=== PATIENT | male | born 1950 | race Caucasian/White ===

== ENCOUNTER 2021-10-01 12:59 | Inpatient (IN) | payer OTHER ==
--- OUTSIDE RECORDS SUMMARY | 2021-10-01 13:22 | XMS REPORT | Continuity of Care Document ---
:1950 Author Organization [facility] t Address [address] [place] [address] Care Team Providers Name Role Phone Asked, Pcp Primary Care Physician Unavailable [id number] Attending Clinician Unavailable RADHA MAYA Attending Clinician Unavailable CHA HARP Attending Clinician Unavailable MELINA Attending Clinician Unavailable [email or web address] Attending Clinician Unavailable SANDHYA Attending Clinician Unavailable Attending Clinician Unavailable Singer CHRISTIANSON Attending Clinician Freddy SERVIN, B Attending Clinician Unavailable MADDI Attending Clinician Unavailable Adilson David DO Attending Clinician Maddi FAY Attending Clinician CARSON Attending Clinician Unavailable Michelle HALLMAN Attending Clinician Unavailable Anival FAY Attending Clinician Michelle Hallman MD Attending Clinician Rin Vee MD Attending Clinician Alcon Pimentel MD Attending Clinician Doctor Unassigned, Name Attending Clinician Unavailable KNOW Attending Clinician Unavailable Radha FAY, Luciano Attending Clinician Jd Kelly MD Attending Clinician Shaikh SUMEET Attending Clinician Giovani Barbour Attending Clinician Jian Claudio MD Attending Clinician Florina Mills MD Attending Clinician Fredrick FAY Attending Clinician DR CHICO Attending Clinician Unavailable Geetha FAY Attending Clinician Chay Garcia Attending Clinician Janet SERVIN Attending Clinician CHERYL Attending Clinician Unavailable [place] Attending Clinician Nicolas Medrano MD Attending Clinician Linda FAY Attending Clinician Cheryl FAY Attending Clinician Elijah Dee MD Attending Clinician Vania Castorena MD Attending Clinician Brendon FAY Attending Clinician Vania CASTORENA Attending Clinician Unavailable Malissa David Attending Clinician Unavailable [id number] Admitting Clinician Unavailable RADHA MAYA Admitting Clinician Unavailable CHA HARP Admitting Clinician Unavailable SANDHYA Admitting Clinician Unavailable [email or web address] Admitting Clinician Unavailable VANDONGEN Admitting Clinician Unavailable MADDI Admitting Clinician Unavailable Maddi FAY Admitting Clinician JULIETTE Admitting Clinician Unavailable Michelle HALLMAN Admitting Clinician Unavailable Michelle Hallman MD Admitting Clinician KNOW Admitting Clinician Unavailable BUBBA Admitting Clinician Unavailable DR CHICO Admitting Clinician Unavailable ELIJAH DEE Admitting Clinician Unavailable Elijah Dee MD Admitting Clinician Brendon FAY Admitting Clinician Malissa David Admitting Clinician Unavailable Payers Payer Name Policy Type Policy Number Effective Date Expiration Date [id number] *SELF PAY* NEED CORRECT MEDICARE ID MEDICARE B-[place]: [id number] [employer] [facility] [id number] (MEDICARE REPLACEMENT HMO) MEDICARE PART A [id number] 2014 \\T\\ B 00:00:00 Problems Condition Condition Condition Status Onset Resolution Last Treating Co mments Source Name Details Category Date Date Treatment Clinician Date UTI UTI Disease Active 2020-06 Univers (urinary (urinary 1-27 ity of tract tract 00:00: [place] infection) infection) 00 Me dical Branch Paroxysmal Paroxysmal Disease Active U nivers atrial atrial 8-04 ity of fibrillati fibrillati [place] with on with 00 Medical RVR RVR Branch Septic Septic Disease Active Univers shock shock 8-04 ity of 00:00: 00 Medical Branch Paroxysmal Paroxysmal Disease Active U nivers atrial atrial 8-04 ity of fibrillati fibrillati [place] with on with Medical RVR RVR Branch ANGIE (acute ANGIE (acute Disease Active U nivers kidney kidney 8-04 ity of injury) injury) 00:00: [place] 00 Medical Branch Hypotensio Hypotensio Disease Active Overview : Univers n, n, 8 Formattin ity of unspecifie unspecifie 00:00: g of this [place] d d 00 note Medical hypotensio hypotensio might be Branch n type n type different from the original. Added automatic ally from request for surgery [id number] Sacral Sacral Disease Active Methodi decubitus decubitus 2-10 st ulcer, ulcer, 00:00: Hospita stage III stage III 00 l COVID-19 COVID-19 Disease Active [facility] virus virus 1-30 st detected detected 00:00: Hospit a 00 l Atypical Atypical Disease Active [facility] di pneumonia pneumonia 1-29 st 00:00: Hospita 00 l group home intermediate frame tender Disease Active Uni vers (current) (current) 1-24 ity of use of use of 00:00: [place] anticoagul anticoagul 00 Me dical ants ants Branch Bacteremia Bacteremia Disease Active U nivers due to due to 1-23 ity of Gram-negat Gram-negat 00:00: [place] tressa tressa 00 Medical bacteria bacteria Branch Diarrhea Diarrhea Disease Active Unive rs of of 1-23 ity of presumed presumed 00:00: [place] infectious infectious 00 Me dical origin origin Branch Respirator Respirator Disease Active U nivers y failure, y failure, 1-21 it y of acute acute 00:00: [place] [facility] PAF PAF Disease Active Univers (paroxysma (paroxysma 1-03 it y of l atrial l atrial 00:00: [place] fibrillati fibrillati 00 Me dical on) on) Branch Morbid Morbid Disease Active Univers obesity obesity 1-03 ity of 00:00: [place] [facility] Essential Essential Disease Active Uni vers hypertensi hypertensi 1-03 it y of on on 00:: Medical Branch COVID-19 COVID-19 Disease Active Overview: Un caesar virus virus 1-03 Formattin ity of infection infection 00:00: g of this [place] 00 note is Medical different Branch from the original. SARS-CoV- 2 Rapid ID NOW (no units) Date Value 1 Positive (A) 0 Positive (A) Anemia Anemia Disease Active Univers 1-03 ity of 00:00: [place] [facility] Sinus Sinus Disease Active Univers bradycardi bradycardi 1-03 it y of a a 00:00: [place] [facility] Cellulitis Cellulitis Disease Active 2019-06 U nivers 2-30 ity of 00:00: [place] [facility] Chronic Chronic Diagnosis Active [facility] obstructiv [facility] pulmonary pulmonary l disease disease Outpati (COPD) (COPD) ent Clinics Lymphedema Lymphedema Diagnosis Active [facility] not [facility] elsewhere Buzz yosef classified classified l Outpati ent Clinics Hypothyroi Hypothyroi Problem Active [facility] dism [facility] Hyperglyce Hyperglyce Problem Active [facility] Hypertensi Hypertensi Diagnosis Active [facility]ics Chronic Chronic Problem Active [facility] pain pain [facility] - syndrome syndrome [facility] l Outpati ent Clinics Obstructiv Obstructiv Diagnosis Active [facility] e sleep e sleep [facility] apnea [facility] Insomnia Insomnia Problem Active [facility] Peripheral Peripheral Problem Active [facility] vascular vascular [facility] - disease disease Memoria l [facility] ent Clinics Body mass Body mass Problem Active [facility] index index [facility] - (BMI) of (BMI) of Memori a 40.0-44.9 40.0-44.9 l in adult in adult Outpat i ent Clinics 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 Me moria l [facility] ent Clinics Allergies, Adverse Reactions, Alerts Allergy Allergy Status Severity Reaction(s) Onset Inactive Treating Comm ents Source Name Type Date Date Clinician COLLAGEN Allergy Active 2020-06 ENCCLR ASE 1-14 17:52: 27 COLLAGEN Allergy Active 2020-06 ENCCLR ASE 1-14 17:52: 27 COLLAGEN Allergy Active 2020-06 ENCCLR ASE 1-14 17:52: 27 COLLAGEN Allergy Active 2020-06 ENCCLR ASE 1-14 17:52: 27 COLLAGEN Allergy Active 2020-06 ENCCLR ASE 1-14 17:52: 27 COLLAGEN Allergy Active 2020-06 ENCCLR ASE 1-14 17:52: 27 COLLAGEN Allergy Active 2020-06 ENCCLR ASE 1-14 17:52: 27 COLLAGEN Allergy Active 2020-06 ENCCLR ASE 1-14 17:52: 27 SULFA Allergy Active 2020-06 ENCCLR 07-04 10:23: 37 SULFA Allergy Active 2020-06 ENCCLR 07-04 10:23: 37 SULFA Allergy Active 2020-06 ENCCLR 07-04 10:23: 37 SULFA Allergy Active 2020-06 ENCCLR 07-04 10:23: 37 SULFA Allergy Active 2020-06 ENCCLR 07-04 10:23: 37 SULFA Allergy Active 2020-06 ENCCLR 07-04 10:23: 37 SULFA Allergy Active 2020-06 ENCCLR 07-04 10:23: 37 SULFA Allergy Active 2020-06 ENCCLR 07-04 10:23: 37 SULFA Allergy Active 2020-06 ENCCLR 07-04 10:23: 37 SULFA Allergy Active 2020-06 ENCCLR 07-04 10:23: 37 CODEINE DRUG Active Other-Cmnt Unive rs INGREDI 01-22 ity of 00:00: [place] 00 Medical Branch Codeine Propensi Active Other - See nausea Un caesar ty to comments 01-22 ity of adverse 00:00: [place] reaction 00 Medical s Branch CODEINE Allergy Active ENCCLR -18 15:11: 11 CODEINE Allergy Active ENCCLR 518 15:11: 11 CODEINE Allergy Active ENCCLR 18 15:11: 11 CODEINE Allergy Active ENCCLR 18 15:11: 11 CODEINE Allergy Active ENCCLR 18 15:11: 11 CODEINE Allergy Active ENCCLR 18 15:11: 11 Silver Propensi Active Unknown Methodi Sulfadia ty to Reaction 1-29 st zine adverse 00:00: Hospita reaction 00 l s to drug SILVER DRUG Active Other-Cmnt 2019-06 Univer s SULFADIA INGREDI 230 ity of ZINE 00:00: [place] 00 Medical Branch Silver Propensi Active Other - See 2019-06 "makes Uni vers Sulfadia ty to comments 2-30 wounds ity of zine adverse 00:00: worse" [place] reaction 00 Medical s Branch CODEINE Allergy Active 2019- ENCCLR 01-25 22:13: 58 CODEINE Allergy Active 2019- ENCCLR 01-25 22:13: 58 CODEINE Allergy Active 2019- ENCCLR 01-25 22:13: 58 CODEINE Allergy Active 2019-0 ENCCLR 01-25 22:13: 58 CODEINE Allergy Active 2019-0 ENCCLR 01-25 22:13: 58 CODEINE Allergy Active 2019-0 ENCCLR 01-25 22:13: 58 CODEINE Allergy Active 2019-0 ENCCLR 01-25 22:13: 58 CODEINE Allergy Active 2019-0 ENCCLR 01-25 22:13: 58 CODEINE Allergy Active 2019-0 ENCCLR 01-25 22:13: 58 CODEINE Allergy Active 2019-0 ENCCLR 01-25 22:13: 58 CODEINE Allergy Active 2019-0 ENCCLR 01-25 22:13: 58 CODEINE Allergy Active 2019-0 ENCCLR 01-25 22:13: 58 SULFA Allergy Active 2020-0 ENCCLR 01-25 22:13: 50 SULFA Allergy Active 2020-0 ENCCLR 01-25 22:13: 50 SULFA Allergy Active 2020-0 ENCCLR 01-25 22:13: 50 SULFA Allergy Active 2020-0 ENCCLR 01-25 22:13: 50 SULFA Allergy Active 2020-0 ENCCLR 01-25 22:13: 50 SULFA Allergy Active 2020-0 ENCCLR 01-25 22:13: 50 SULFA Allergy Active 2020-0 ENCCLR 01-25 22:13: 50 SULFA Allergy Active 2020-0 ENCCLR 01-25 22:13: 50 SULFA Allergy Active 2020-0 ENCCLR 01-25 22:13: 50 SULFA Allergy Active 2020-0 ENCCLR 01-25 22:13: 50 SULFA Allergy Active 2020-0 ENCCLR 01-25 22:13: 50 SULFA Allergy Active 2020-0 ENCCLR 01-25 22:13: 50 SULFADIA Allergy Active 2020-0 ENCCLR ZINE 01-25 22:13: 46 SULFADIA Allergy Active 2020-0 ENCCLR ZINE 01-25 22:13: 46 SULFADIA Allergy Active 2020-0 ENCCLR ZINE 01-25 22:13: 46 SULFADIA Allergy Active 2020-0 ENCCLR ZINE 01-25 22:13: 46 SULFADIA Allergy Active 2020-0 ENCCLR ZINE 01-25 22:13: 46 SULFADIA Allergy Active 2020-0 ENCCLR ZINE 01-25 22:13: 46 SULFADIA Allergy Active 2020-0 ENCCLR ZINE 01-25 22:13: 46 SULFADIA Allergy Active 2020-0 ENCCLR ZINE 01-25 22:13: 46 SULFADIA Allergy Active 2020-0 ENCCLR ZINE 01-25 22:13: 46 SULFADIA Allergy Active 2020-0 ENCCLR ZINE 01-25 22:13: 46 SULFADIA Allergy Active 2020-0 ENCCLR ZINE 01-25 22:13: 46 SULFADIA Allergy Active 2020-0 ENCCLR ZINE 01-25 22:13: 46 Codeine Adverse Active Info Not [facility] Sulfate Reaction Available [facility] Social History Social Habit Start Date Stop Date Quantity Comments Source Exposure to Not sure University of SARS-CoV-2 [place] [facility] (event) Branch Alcohol intake 2020-08-08 2020-08-08 Ex-drinker [facility]ai 00:00:00 00:00:00 (finding) Hospital Tobacco use and 2020-07-21 2020-07-21 Smokeless tobacco Me thodist exposure 00:00:00 00:00:00 non-user Hospital History SDOH 2020-07-13 2020-07-13 99 University o f Alcohol Frequency 00:00:00 00:00:00 [place] M edical Branch History SDOH 2020-07-13 2020-07-13 99 University o f Alcohol Std 00:00:00 00:00:00 [place] Medical Drinks Branch History SDOH 2020-07-13 2020-07-13 99 University o f Alcohol Binge 00:00:00 00:00:00 [place] [facility] al [facility] Education 2020-07-13 2020-07-13 13 University of 00:00:00 00:00:00 [place] [facility] History SDOH Food 2020-07-13 2020-07-13 1 Univers ity of Worry 00:00:00 00:00:00 [place] [facility] History SDOH Food 2020-07-13 2020-07-13 1 Univers ity of Scarcity 00:00:00 00:00:00 [place] [facility] History SDOH 2020-07-13 2020-07-13 2 University o f Transport Med 00:00:00 00:00:00 [place] [facility] History SDNM 2020-07-13 2020-07-13 2 University o f Transport Non-Med 00:00:00 00:00:[address] [facility] edical Branch Alcohol Comment 2020-07-13 2020-07-13 hasn't had drink Uni versity of 00:00:00 00:00:00 since 2013; use [place] [facility] ica to drink 5-6 Branch beers on some weekends Sex Ass[birth year] [place] 00:00:00 00:00:00 Hospital Smoking Status Start Date Stop Date Source Never smoker [facility] Medical Branch Medications Ordered Filled Start Stop Current Ordering Indication Dosage Frequency Signature Comments Components Source Medication Medication Date Date Medication? Clinician (SIG) Name Name HYDROcodone 2021- No 1{tbl} 1 tablet, Univers -acetaminop 06-29 Oral, ity of hen (NORCO) 01:45: 00:43 [place]CE[place] 1 [place] 10-325 mg 00 :00 dose, On Medica l tablet Fri06/28/21 Branc h tablet at 1945, Routine cefTRIAXone 2021- No 1000mg 1,000 mg, Univers (ROCEPHIN) 06-28- IV ity of 1,000 mg in 18:45: 19:07 [place], [place] NaCl 0.9% 00 :00 ONCE, 1 Medical (NS) 50 mL dose, On Branc h MINI-BAG Gaby 06/28/21 at 1245, Administer over 30 Minutes, 50 mL
R fely for Anti-Infec tive: Empiric Therapy for Suspected Infection< br>Empiric Therapy Site: Urine
D uration of therapy: 72 hours HYDROcodone 2021- No 1{tbl} 1 tablet, Univers -acetaminop 06-28 Oral, ity of hen (NORCO) 17:45: 16:48 ONCE, 1 [place] 10-325 mg 00 :00 dose, On Medica l tablet Fri06/28/21 Branc h tablet at 1145, Routine levoFLOXaci Yes [id number] 750mg Take 1 Univers n 750 mg 1-06 tablet by ity of tablet 00:00: mouth [place] 00 every 24 Medical (twenty-fo Branch ur) hours. aspirin 81 2020-06 Yes 81mg Take 81 mg U nivers mg chewable 2-02 by mouth ity of tablet 21:31: daily. [place] [address] Medical Branch gabapentin 2020-06 Yes 600mg Take 600 Un caesar 600 mg 2-02 mg by ity of tablet 21:31: mouth 4 [place] [address] (four) Medical times Branch daily. enalapril 5 2020-06 Yes 5mg Take 5 mg U nivers mg tablet 2-02 by mouth ity of 21:31: daily. [place] [address] Medical Branch rivaroxaban 2020-06 Yes 20mg Take 20 mg Univers (XARELTO) 2-02 by mouth ity of 20 mg 21:31: daily. [place] tablet 53 Medical Branch liothyronin 2020-06 Yes 25ug Take 25 Uni vers e 25 mcg 2-02 mcg by ity of tablet 21:31: mouth [place] 53 daily. Medical Branch amiodarone 2020-06 Yes 200mg Take 200 Un caesar 200 mg 2-02 mg by ity of tablet 21:31: mouth [place] 53 daily. Medical Branch HYDROcodone 2020-06 Yes 1{tbl} Take 1 Un caesar -acetaminop 2-02 tablet by ity of hen (NORCO) 21:31: mouth [place] 10-325 mg 53 every 6 Medical tablet (six) Branch hours as needed. aspirin 81 2020-06 Yes 81mg Take 81 mg U nivers mg chewable 2-02 by mouth ity of tablet 21:31: daily. [address] Branch gabapentin 2020-06 Yes 600mg Take 600 Un caesar 600 mg 2-02 mg by ity of tablet 21:31: mouth 4 [place] [address] (four) Medical times Branch daily. enalapril 5 2020-06 Yes 5mg Take 5 mg U nivers mg tablet 2-02 by mouth ity of 21:31: daily. [address] Branch rivaroxaban 2020-06 Yes 20mg Take 20 mg Univers (XARELTO) 2-02 by mouth ity of 20 mg 21:31: daily. [address] Branch liothyronin 2020-06 Yes 25ug Take 25 Uni vers e 25 mcg 2-02 mcg by ity of tablet 21:31: mouth [place] 53 daily. Medical Branch amiodarone 2020-06 Yes 200mg Take 200 Un caesar 200 mg 2-02 mg by ity of tablet 21:31: mouth [place] 53 daily. Medical Branch HYDROcodone 2020-06 Yes 1{tbl} Take 1 Un caesar -acetaminop 2-02 tablet by ity of hen (NORCO) 21:31: mouth [place] 10-325 mg 53 every 6 Medical tablet (six) Branch hours as needed. aspirin 81 2020-06 Yes 81mg Take 81 mg U nivers mg chewable 2-02 by mouth ity of tablet 21:31: daily. [address] Branch gabapentin 2020-06 Yes 600mg Take 600 Un caesar 600 mg 2-02 mg by ity of tablet 21:31: mouth 4 [place] 53 (four) Medical times Branch daily. enalapril 5 2020-06 Yes 5mg Take 5 mg U nivers mg tablet 2-02 by mouth ity of 21:31: daily. [place] 53 Medical Branch rivaroxaban 2020-06 Yes 20mg Take 20 mg Univers (XARELTO) 2-02 by mouth ity of 20 mg 21:31: daily. [place] tablet 53 Medical Branch liothyronin 2020-06 Yes 25ug Take 25 Uni vers e 25 mcg 2-02 mcg by ity of tablet 21:31: mouth [place] 53 daily. Medical Branch amiodarone 2020-06 Yes 200mg Take 200 Un caesar 200 mg 2-02 mg by ity of tablet 21:31: mouth [place] 53 daily. Medical Branch HYDROcodone 2020-06 Yes 1{tbl} Take 1 Un caesar -acetaminop 2-02 tablet by ity of hen (NORCO) 21:31: mouth [place] 10-325 mg 53 every 6 Medical tablet (six) Branch hours as needed. NaCl 0.9% 2020-06 Yes 10mL 10 mL, Univer s (NS) 2- Slow IV ity of injection 19:00: Push, PRN, [place] 10 mL 26 Starting Medical on Fri Branch 05/23/21 at 1300, Until Discontinu ed, Routine, line maintenanc e lidocaine 2020-06 Yes 5mL 5 mL, Univers 1% (PF) 2 Subcutaneo ity of (XYLOCAINE) 19:00: us, PRN, [place] injection 5 26 Starting Medi karine mL on Fri Branch 05/23/21 at 1300, Until Discontinu ed, Routine, Local anesthesia meropenem 2020-06 Yes 1g 1 g, IV Unive rs (MERREM) 1 2-01 Piggyback, ity of g in NaCl 16:00: Q8H ABX, [place] 0.9% (NS) 00 First dose Medi karine 100 mL on Fri Branch MINI-BAG 05/23/21 at 1000, Until Discontinu ed, Administer over 60 Minutes, 100 mL
Rest ricted use approved by: ADC PROVIDER<b r>Reason for Anti-Infec tive: Empiric Therapy for Suspected Infection< br>Empiric Therapy Site: Skin / Soft tissue
Duration of therapy: 7 days rivaroxaban 2020-06 Yes 20mg 20 mg, Univ ers (XARELTO) 07-22 Oral, ity of tablet 20 03:30: DAILY, [place] mg 00 First dose Medical on [facility] 05/21/21 at 2130, Until Discontinu ed, Routine meropenem 2020-06 1g 1 g, IV Univ ers (MERREM) 1 07-22 Piggyback, it y of g in NaCl 00:30: 14:47 Q8H ABX, [place] 0.9% (NS) 00 :25 21 doses, Medic al 100 mL First dose Branch MINI-BAG on Fri05/21/21 at 1830, Last dose on Fri05/28/21 at 1030, Administer over 60 Minutes, 100 mL
Rest ricted use approved by: ADC PROVIDER<b r>Reason for Anti-Infec tive: Documented Infection< br>Documen josé antonio Infection Site: Urine
D uration of Therapy: 7 days liothyronin 2020-06 Yes 25ug 25 mcg, Uni vers e (CYTOMEL) 07-20 Oral, ity of tablet 25 15:00: DAILY, [place] mcg 00 First dose Medical on [facility] 05/20/21 at 0900, Until Discontinu ed, Routine enalapril 2020-06 Yes 5mg 5 mg, Univers (VASOTEC) 07-20 Oral, ity of tablet 5 mg 15:00: DAILY, [place] 00 First dose Medical on [facility] 05/20/21 at 0900, Until Discontinu ed, Routine amiodarone 2020-06 Yes 200mg 200 mg, Uni vers (PACERONE) 07-20 Oral, ity of tablet 200 15:00: DAILY, [place] mg 00 First dose Medical on [facility] 05/20/21 at 0900, Until Discontinu ed, Routine docusate 2020-06 Yes 100mg 100 mg, Unive rs (COLACE) 07-20 Oral, BID, ity o f capsule 100 02:00: First dose [place] mg 00 on [facility] 05/19/21 Branch at 2000, Until Discontinu ed, Routine gabapentin 2020-06 Yes 600mg 600 mg, Uni vers (NEURONTIN) 07-20 Oral, QID, it y of tablet 600 02:00: First dose [place] mg 00 on [facility] 05/19/21 Branch at 2000, Until Discontinu ed, Routine lactobacill 2020-06 Yes .5mg 0.5 mg, Uni vers us 07-20 Oral, BID, ity of acidophilus 02:00: First dose [place] tablet 0.5 00 on [facility] Medical mg 05/19/21 Branch at 2000, Until Discontinu ed HYDROcodone 2020-06 Yes 1{tbl} 1 tablet, Univers -acetaminop 07-20 Oral, ity of hen (NORCO) 01:56: Q6HPRN, [place] 10-325 mg 56 Starting Medica l tablet 1 on [facility] Branch tablet 05/19/21 at 1956, Until Discontinu ed, Routine, Pain (scale 7-10) ertapenem 2020-06 No 1000mg 1,000 mg, Univers (INVANZ) 07-19 IV ity of 1,000 mg in 23:45: 02:58 Piggyback, [place] NaCl 0.9% 00 :00 ONCE, 1 Medical (NS) 50 mL dose, On Bran h MINI-BAG [facility] 05/19/21 at 1745, Administer over 30 Minutes, 50 mL
Reas on for Anti-Infec tive: Documented Infection< br>Documen josé antonio Infection Site: Urine<br&g t;Duration of Therapy: 7 days
Re stricted use approved by: ADC PROVIDER ondansetron 2020-06 Yes 4mg 4 mg, Slow Univers (ZOFRAN 07-19 IV Push, ity of (PF)) 22:56: Q6HPRN, [place] injection 4 24 Starting Medi karine mg on [facility] Branch 05/19/21 at 1656, Until Discontinu ed, Routine, Nausea and Vomiting (N/V) acetaminoph 2020-06 Yes 650mg 650 mg, Un caesar en 07-19 Oral, ity of (TYLENOL) 22:56: Q6HPRN, [place] tablet 650 00 Starting Medic al mg on [facility] Branch 05/19/21 at 1656, Until Discontinu ed, Routine, Pain (scale 1-3), Temp > 38.5 C aspirin 81 Yes 81mg Take 81 mg U nivers mg chewable 8-17 by mouth ity of tablet 02:13: daily. [place] 59 [facility] gabapentin Yes 600mg Take 600 Un caesar 600 mg 8-17 mg by ity of tablet 02:13: mouth 4 [place] [address] (four) Medical times Branch daily. enalapril 5 Yes 5mg Take 5 mg U nivers mg tablet 8-17 by mouth ity of 02:13: daily. [place] [address] Medical Branch rivaroxaban Yes 20mg Take 20 mg Univers (XARELTO) 8-17 by mouth ity of 20 mg 02:13: daily. [place] tablet 59 Medical Branch liothyronin Yes 25ug Take 25 Uni vers e 25 mcg 8-17 mcg by ity of tablet 02:13: mouth [place] 59 daily. Medical Branch amiodarone Yes 200mg Take 200 Un caesar 200 mg 8-17 mg by ity of tablet 02:13: mouth [place] 59 daily. Medical Branch aspirin 81 Yes 81mg Take 81 mg U nivers mg chewable 8-17 by mouth ity of tablet 02:13: daily. [address] Branch gabapentin Yes 600mg Take 600 Un caesar 600 mg 8-17 mg by ity of tablet 02:13: mouth 4 [place] [address] (four) Medical times Branch daily. enalapril 5 Yes 5mg Take 5 mg U nivers mg tablet 8-17 by mouth ity of 02:13: daily. [place] [address] Medical Branch rivaroxaban Yes 20mg Take 20 mg Univers (XARELTO) 8-17 by mouth ity of 20 mg 02:13: daily. [facility] 59 Medical Branch liothyronin Yes 25ug Take 25 Uni vers e 25 mcg 8-17 mcg by ity of tablet 02:13: mouth [place] 59 daily. Medical Branch amiodarone Yes 200mg Take 200 Un caesar 200 mg 8-17 mg by ity of tablet 02:13: mouth [place] 59 daily. Medical Branch polyethylen Yes 17g 17 g, Unive rs e glycol 8-17 Oral, BID, ity o f 3350 powder 01:00: First dose [place] 17 g 00 (after Medical last Branch modificati on) on 02/05/21 at 2000, Until Discontinu ed, Routine iron No 500mg 500 mg, IV Unive rs dextran 8-16 08-16 Infusion, ity of (INFED) 500 22:30: 23:59 ONCE, 1 [place] mg in NaCl 00 :00 dose, Mon Medi karine 0.9% (NS) 02/05/21 at [facility] 500 mL IV 1730, infusion Administer over 1.5 Hours, 500 mL Hydrocodone 2020- No 7.5{tbl Take 7.5 Univers -Acetaminop 02-05 } tablets by i ty of hen 7.5-300 22:20: 00:00 [place] mg tablet 51 :00 every 6 Medical (six) Branch hours as needed for Pain (scale 4-6). iron 2020- No 25mg 25 mg, IV Univers dextran 02-05 Piggyback, ity o f (INFED) 25 22:15: 22:36 ONCE, 1 [place] mg in NaCl 00 :00 dose, Mon Medi karine 0.9% (NS) 02/05/21 at [facility] 100 mL IV 1715, piggyback Administer over 15 Minutes, 100 mL magnesium 2020- No 4g 4 g, IV Univ ers sulfate in 02-05 Piggyback, it y of water 4 13:45: 13:38 ONCE, 1 [place] gram/50 mL 00 :00 dose, Mon Medi karine (8 %) IV 02/05/21 at [facility] h Piggyback 4 0845, g Routine methadone 5 2020- No 2745 2.5mg Take 0.5 Univers mg tablet 02-05 tablets by ity of 00:00: 04:59 mouth [place] 00 :00 every 6 Medical (six) Branch hours for 7 days. Indication s: acute pain, chronic pain HYDROcodone 2020- No 4647 1{tbl} Take 1 U nivers -acetaminop 02-05 tablet by it y of hen 5-325 00:00: 04:59 mouth [place] mg tablet 00 :00 every 6 Medical (six) Branch hours as needed for Pain (scale 4-6) for up to 7 days. Indication s: acute pain methadone 5 2020- No 2745 2.5mg Take 0.5 Univers mg tablet 02-05-24 tablets by ity of 00:00: 04:59 mouth [place] 00 :00 every 6 Medical (six) Branch hours for 7 days. Indication s: acute pain, chronic pain HYDROcodone 2020- No 4647 1{tbl} Take 1 U nivers -acetaminop 02-05 tablet by it y of hen 5-325 00:00: 04:59 mouth [place] mg tablet 00 :00 every 6 Medical (six) Branch hours as needed for Pain (scale 4-6) for up to 7 days. Indication s: acute pain KCL 2020- No 20meq 20 mEq, Univers (KLOR-CON 02-04 Oral, ity of M20) tablet 11:15: 11:19 ONCE, 1 [place] 20 mEq 00 :00 dose, [facility] 02/04/21 at Branch 0615, Routine glycerin/mi 2020- No 225mL 225 mL, U nivers neral oil 02-03 Rectal, ity of (AGLO 23:15: 23:15 ONCE, 1 [place] ENEMA) 00 :00 dose, [facility] [place] [facility] ([facility] 02/03/21 [facility] Enem 225 1815, mL Routine methadone Yes 2.5mg 2.5 mg, Univ ers (DOLOPHINE 02-03 Oral, Q6H, ity of HCL) tablet 23:00: First dose [place] 2.5 mg 00 (after Medical last Branch modificati on) on [facility] [place] 02/03/21 at 1800, Until Discontinu ed, Routine magnesium 2020- No 296mL 296 mL, Uni vers citrate 02-03 Oral, ity of solution 17:15: 20:15 ONCE, 1 [place] 296 mL 00 :00 dose, [facility] 02/03/21 at Branch 1215, Routine NaCl 0.9% 2020- No 500mL at 100 Univ ers (NS) IV 02-03- mL/hr, IV ity of infusion 15:45: 17:15 Infusion, [place] 500 mL 00 :00 ONCE, 1 Medical dose, [facility] 02/03/21 at 1045, Routine lactulose 2020- No 15mL 15 mL, Unive rs (CEPHULAC) 02-03 Oral, BID, it y of solution 15 13:30: 12:20 First dose [place] mL 00 :23 on Sat Medical 02/03/21 at Branch 0830, Until Discontinu ed, Routine phosphorus 2020- No 250mg 1 tablet U nivers (K PHOS 02-02 (250 mg), ity of NEUTRAL) 19:00: 01:03 Oral, TID, [place] tablet 1 00 :00 2 doses, Medical tablet First dose Branch (after last modificati on) on Fri02/02/21 at 1400, Last dose on Fri02/02/21 at 2000, Routine sennosides- Yes 3{tbl} 3 tablet, Univers docusate 02-02 Oral, BID, ity o f sodium 13:30: First dose [place] (SENOKOT-S) 00 on Fri Medica l 8.6-50 mg 02/02/21 at [facility] per tablet 0830, 3 tablet Until Discontinu ed, Routine polyethylen No 17g 17 g, Univ ers e glycol 02-02 Oral, BID, ity of 3350 powder 13:30: 12:56 First dose [place] 17 g 00 :12 on Fri Medical 02/02/21 at Branch 0830, Until Discontinu ed, Routine magnesium No 4g 4 g, IV Univ ers sulfate in 02-02 Piggyback, it y of water 4 01:00: 01:38 ONCE, 1 [place] gram/50 mL 00 :00 dose, [facility] Medi karine (8 %) IV 02/01/21 at [facility] h Piggyback 4 1999, g Routine calcium Yes 500mg 500 mg, Univer s carbonate 02-01 Oral, ity of (OSCAL-500) 22:45: DAILY, [place] tablet 500 00 First dose Med ical mg on [facility] Branch 02/01/21 at 1745, Until Discontinu ed, Routine acetaminoph No 650mg 650 mg, U nivers en 02-0114 Oral, Q6H, ity of (TYLENOL) 17:00: 17:13 First dose [place] tablet 650 00 :36 on [facility] Medical mg 02/01/21 at Branch 1200, Until Discontinu ed, Routine magnesium 2020-0 2020- No 4g 4 g, IV Univ ers sulfate in 02-01 Piggyback, it y of water 4 16:30: 17:46 ONCE, 1 [place] gram/50 mL 00 :00 dose, [facility] Medi karine (8 %) IV 02/01/21 at [facility] h Piggyback 4 1130, g Routine rivaroxaban Yes 20mg 20 mg, Univ ers (XARELTO) 02-01 Oral, ity of tablet 20 14:00: DAILY, [place] mg 00 First dose Medical on [facility] Branch 02/01/21 at 0900, Until Discontinu ed, Routine NaCl 0.9% 2020-0 Yes 10mL 10 mL, Univer s (NS) 01-31 Slow IV ity of injection 17:12: Push, PRN, [place] 10 mL 51 Starting Medical [facility] Branch 01/31/21 at 1212, Until Discontinu ed, Routine, line maintenanc e lidocaine 2020-0 Yes 5mL 5 mL, Univers 1% (PF) 01-31 Subcutaneo ity of (XYLOCAINE) 17:12: us, PRN, [place] injection 5 51 Starting Medi karine mL Wed Branch 01/31/21 at 1212, Until Discontinu ed, Routine, Local anesthesia NaCl 0.9% 2020-0 Yes 10mL 10 mL, Univer s (NS) 01-31 Slow IV ity of injection 17:12: Push, PRN, [place] 10 mL 51 Starting Medical Wed Branch 01/31/21 at 1212, Until Discontinu ed, Routine, line maintenanc e lidocaine 2020-0 Yes 5mL 5 mL, Univers 1% (PF) 01-31 Subcutaneo ity of (XYLOCAINE) 17:12: us, PRN, [place] injection 5 51 Starting Medi karine mL Wed Branch 01/31/21 at 1212, Until Discontinu ed, Routine, Local anesthesia magnesium 2020-0 2020- No 2g 2 g, IV Univ ers sulfate in 01-31 Piggyback, it y of water 2 12:30: 15:00 ONCE, 1 [place] gram/50 mL 00 :00 dose, Wed Medi karine (4 %) 01/31/21 at Branch infusion 2 0730, g Routine magnesium 2020- No 2g 2 g, IV Univ ers sulfate in 01-31 Piggyback, it y of water 2 10:40: 13:00 ONCE, 1 [place] gram/50 mL 00 :00 dose, Fri [facility] (4 %) 01/31/21 at [place] infusion 2 0545, g Routine NaCl 0.9% 2020- No 500mL at 999 Univ ers (NS) bolus 01-31- mL/hr, 500 it y of infusion 06:00: 04:59 mL, IV [place] 500 mL 00 :00 Piggyback, Medical ONCE NOW, Branch 1 dose, Fri01/31/21 at 0100, STAT NaCl 0.9% 2020- No 500mL at 999 Univ ers (NS) bolus 01-31 mL/hr, 500 it y of infusion 02:30: 01:51 mL, IV [place] 500 mL 00 :00 Piggyback, Medical ONCE, 1 Branch dose, Fri01/30/21 at 2130, STAT melatonin 0 Yes 6mg 6 mg, Univers (MELATIN) 8-11 Oral, QHS, ity of tablet 6 mg 02:00: First dose [place] 00 (after Medical last Branch modificati on) on Fri01/30/21 at 2100, Until Discontinu ed, Routine melatonin Yes 6mg 6 mg, Univers (MELATIN) 8-11 Oral, QHS, ity of tablet 6 mg 02:00: First dose [place] 00 (after Medical last Branch modificati on) on Fri01/30/21 at 2100, Until Discontinu ed, Routine iodixanoL 0 Yes PRN, Univers (VISIPAQUE 8-10 Starting ity o f 270-150 mL) 19:29: Tue [place] injection 00 01/30/21 at [facility] 1429, Branch Until Discontinu ed, Routine, Intra-op iodixanoL 2020-0 Yes PRN, Univers (VISIPAQUE 8-10 Starting ity o f 270-150 mL) 19:29: Tue [place] injection 00 01/30/21 at [facility] 1429, Branch Until Discontinu ed, Routine, Intra-op heparin 2020-0 Yes PRN, Univers 1,000 8-10 Starting ity of unit/mL 18:26: Fri [place] injection 00 01/30/21 at [facility] 1326, Branch Until Discontinu ed, Routine, Intra-op heparin 2020-0 Yes PRN, Univers 1,000 8-10 Starting ity of unit/mL 18:26: Fri [place] injection 00 01/30/21 at [facility] 1326, Branch Until Discontinu ed, Routine, Intra-op liothyronin 2020-0 Yes 25ug 25 mcg, Uni vers e (CYTOMEL) 8-10 Oral, ity of tablet 25 14:00: DAILY, [place] mcg 00 First dose Medical on [facility] 01/30/21 at 0900, Until Discontinu ed, Routine liothyronin 2020-0 Yes 25ug 25 mcg, Uni vers e (CYTOMEL) 8-10 Oral, ity of tablet 25 14:00: DAILY, [place] mcg 00 First dose Medical on [facility] 01/30/21 at 0900, Until Discontinu ed, Routine glucagon 2020-0 Yes 1mg 1 mg, Univers (GLUCAGEN 8-10 Intramuscu ity of DIAGNOSTIC 03:21: lar, PRN, [place] KIT) 47 Starting Medical injection 1 Fri01/29/21 Br anch mg at 2221, Until Discontinu ed, MICHELLE, Blood Glucose < or = 70 mg/dL and patient is unable to swallow or has mental changes. dextrose 50 2020-0 Yes 25mL 25 mL, Univ ers % in water 8-10 Slow IV ity of (D50W) 03:21: Push, PRN, [place] injection 47 Starting Medica l 25 mL [facility] 01/29/21 Branch at 2221, Until Discontinu ed, MICHELLE, Blood Glucose < or = 70 mg/dL and patient is unable to swallow or has mental status changes. glucagon 2020-0 Yes 1mg 1 mg, Univers (GLUCAGEN 8-10 Intramuscu ity of DIAGNOSTIC 03:: lar, PRN, [place] KIT) 47 Starting Medical injection 1 Fri01/29/21 Br anch mg at 2221, Until Discontinu ed, MICHELLE, Blood Glucose < or = 70 mg/dL and patient is unable to swallow or has mental changes. dextrose 50 2020-0 Yes 25mL 25 mL, Univ ers % in water 8-10 Slow IV ity of (D50W) 03:21: Push, PRN, [place] injection 47 Starting Medica l 25 mL [facility] 01/29/21 Branch at 2221, Until Discontinu ed, MICHELLE, Blood Glucose < or = 70 mg/dL and patient is unable to swallow or has mental status changes. bumetanide 2020- No 1mg 1 mg, Slow Univers (BUMEX) 01-29 IV Push, ity of injection 1 22:15: 01:24 QAM+PM, [place] mg 00 :22 First dose Medical on Mon Branch 01/29/21 at 1715, Until Discontinu ed, Routine melatonin 2020- No 6mg 6 mg, Univer s (MELATIN) 01-29 Oral, ity of tablet 6 mg 02:24: 01:18 QHSPRN, [place] 11 :41 Starting Medical [facility] 01/28/21 Branch at 2124, Until Fri01/30/21 at 2018, Routine, Insomnia HYDROcodone Yes 1{tbl} 1 tablet, Univers -acetaminop 8-08 Oral, ity of hen (NORCO 15:25: Q4HPRN, [place] 5) 5-325 mg 04 Starting Medi karine tablet 1 [facility] [place] 01/28/21 Branc h tablet at 1025, Until Discontinu ed, Routine, Pain (scale 4-6) HYDROcodone Yes 1{tbl} 1 tablet, Univers -acetaminop 8-08 Oral, ity of hen (NORCO 15:25: Q4HPRN, [place] 5) 5-325 mg 04 Starting Medi karine tablet 1 [facility] [place] 01/28/21 Branc h tablet at 1025, Until Discontinu ed, Routine, Pain (scale 4-6) heparin 2020-2020- No 500U/h 500 Univers 25,000 808 08-10 Units/hr ity of Units/250 00:15: 22:18 (5 mL/hr), [place] mL 00 :30 IV Medical (Premixed Infusion, Branc h Bag) in D5W CONTINUOUS , Starting 01/27/21 at 1915, Until Fri01/30/21 at 1718 magnesium 2020-0 2021- No 4g 4 g, IV Univ ers sulfate in 01-27 Piggyback, it y of water 4 22:30: 00:55 ONCE, 1 [place] gram/50 mL 00 :00 dose, Sat Medi karine (8 %) IV 01/27/21 at Branch Piggyback 4 1730, g Routine phosphorus Yes 250mg 1 tablet Un caesar (K PHOS 01-27 (250 mg), ity of NEUTRAL) 21:30: Oral, TID, [place] tablet 1 00 First dose Medic al tablet on Sat Branch 01/27/21 at 1630, Until Discontinu ed, Routine phosphorus No 250mg 1 tablet U nivers (K PHOS 01-27 (250 mg), ity of NEUTRAL) 21:30: 14:50 Oral, TID, [place] tablet 1 00 :01 First dose Medic al tablet on Sat Branch 01/27/21 at 1630, Until Discontinu ed, Routine vancomycin Yes 1250mg 1,250 mg, Univers 1250 mg in 01-27 IV ity of NS 250 mL 18:29: Piggyback, [place] RTU IV 00 Q24H ABX, Medical Piggyback First dose Bran ch 1,250 mg (after last modificati on) on 01/27/21 at 1330, Until Discontinu ed, Administer over 90 Minutes
Reason for Anti-Infec tive: Empiric Therapy for Suspected Infection< br>Empiric Therapy Site: Urine
D uration of therapy: 72 hours vancomycin No 1250mg 1,250 mg, Univers 1250 mg in 01-27 IV ity of NS 250 mL 18:29: 13:14 Piggyback, [place] RTU IV 00 :23 Q24H ABX, Medical Piggyback First dose Bran ch 1,250 mg (after last modificati on) on 01/27/21 at 1330, Until Discontinu ed, Administer over 90 Minutes
Reason for Anti-Infec tive: Empiric Therapy for Suspected Infection< br>Empiric Therapy Site: Urine
D uration of therapy: 72 hours polyethylen 2020- No 17g 17 g, Univ ers e glycol 01-27 Oral, ity of 3350 powder 09:30: 09:48 ONCE, 1 [place] 17 g 00 :00 dose, Sat Medical 01/27/21 at Branch 0430, Routine ipratropium Yes 3mL 3 mL[facility]27 Inhalation ity of (DUONEB) 01:00: , Q4H, [place] 0.5 mg-3 00 First dose Medic al mg(2.5 mg (after Branch base)/3 mL last nebulizer modificati solution 3 on) on Fri01/26/21 at 1999, Until Discontinu ed, Routine ipratropium Yes 3mL 3 mL, [place] [facility] rs -albuteroL 01-27 Inhalation ity of (DUONEB) 01:00: , Q4H, [place] 0.5 mg-3 00 First dose Medic al mg(2.5 mg (after Branch base)/3 mL last nebulizer modificati solution 3 on) on 01/26/21 at 1999, Until Discontinu ed, Routine bumetanide No 1mg 1 mg, Slow Univers (BUMEX) 01-27 IV Push, ity of injection 1 01:00: 15:40 Q12H, [place] mg 00 :02 First dose Medical (after Branch last reorder) on Fri01/26/21 at 1999, Until Discontinu ed, Routine ertapenem Yes 1000mg 1,000 mg, U nivers (INVANZ) 01-26 IV ity of 1,000 mg in 16:30: Piggyback, [place] NaCl 0.9% 00 Q24H ABX, Medic al (NS) 50 mL First dose Bra [facility] MINI-BAG on Fri01/26/21 at 1130, Until Discontinu ed, Administer over 30 Minutes, 50 mL
Reas on for Anti-Infec tive: Documented Infection< br>Documen josé antonio Infection Site: Blood
D uration of Therapy: 10 days
Re stricted use approved by: ADC PROVIDER ertapenem 2020- No 1000mg 1,000 mg, Univers (INVANZ) 01-26 IV ity of 1,000 mg in 16:30: 16:52 Piggyback, [place] NaCl 0.9% 00 :04 Q24H ABX, Medic al (NS) 50 mL First dose Bra [facility] MINI-BAG on Fri01/26/21 at 1130, Until Discontinu ed, Administer over 30 Minutes, 50 mL
Reas on for Anti-Infec tive: Documented Infection< br>Documen josé antonio Infection Site: Blood
D uration of Therapy: 10 days
Re stricted use approved by: ADC PROVIDER potassium 2020- 202- No 10meq 10 mEq, IV Univers chloride in 01-26 Piggyback, i ty of water 10 04:30: 04:26 ONCE, 1 [place] mEq/100 mL 00 :00 dose, [facility] RTU 10 mEq 01/25/21 at [facility] ch 2330, Administer over 60 Minutes, 100 mL pantoprazol Yes 40mg 40 mg, Univ ers e 01-26 Slow IV ity of (PROTONIX) 01:00: Push, [place] injection 00 Q12H, Medical 40 mg First dose Branch on [facility] 01/25/21 at 1999, Until Discontinu ed lactobacill 2020- No .5mg 0.5 mg, Un caesar 01-26 Oral, BID, ity of acidophilus 01:00: 00:59 14 doses, [place] tablet 0.5 00 :00 First dose Med ical mg on [facility] Branch 01/25/21 at 1999, Last dose on [facility] 02/01/21 at 0800, Routine pantoprazol 2020- No 40mg 40 mg, Uni vers e 01-26 Slow IV ity of (PROTONIX) 01:00: 06:03 Push, [place] injection 00 :17 Q12H, Medical 40 mg First dose Branch on [facility] 01/25/21 at 1999, Until Discontinu ed lactobacill 2020- No .5mg 0.5 mg, Un caesar 01-26 Oral, BID, ity of acidophilus 01:00: 14:22 14 doses, [place] tablet 0.5 00 :00 First dose Med ical mg on [place] Branch 01/25/21 at 1999, Last dose on [facility] 02/01/21 at 0800, Routine magnesium 2020- No 4g 4 g, IV Univ ers sulfate in 01-26 Piggyback, it y of water 4 01:00: 01:46 ONCE, 1 [place] gram/50 mL 00 :00 dose, [facility] Medi karine (8 %) IV 01/25/21 at [place] Piggyback 4 2000, g Routine KCL Yes 40meq 40 mEq, Univers (KLOR-CON 01-26 Oral, BID, ity of M20) tablet 00:00: First dose [place] 40 mEq 00 on [facility] Medical 01/25/21 at [place] 1900, Until Discontinu ed, Routine KCL 2020- No 40meq 40 mEq, Univers (KLOR-CON 01-26 Oral, BID, ity of M20) tablet 00:00: 18:47 First dose [place] 40 mEq 00 :42 on [facility] Medical 01/25/21 at [place] 1900, Until Discontinu ed, Routine potassium 2020- No 10meq 10 mEq, IV Univers chloride in 01-26 Piggyback, i ty of water 10 00:00: 02:46 Q1H, 2 [place] mEq/100 mL 00 :00 doses, Medical RTU 10 mEq First dose Bra nch on Gaby 01/25/21 at 1915, Last dose on Gab[facility] 01/25/21 at 2000, Administer over 60 Minutes, 100 mL meropenem 2020- No 1g 1 g, IV Univ ers (MERREM) 1 01-25 Piggyback, it y of g in NaCl 19:30: 15:24 Q8H ABX, [place] 0.9% (NS) 00 :57 First dose Medi karine 100 mL on Gaby [place] MINI-BAG 01/25/21 at 1430, Until Discontinu ed, Administer over 60 Minutes, 100 mL
Rest ricted use approved by: ADC PROVIDER<b r>Reason for Anti-Infec tive: Documented Infection< br>Documen josé antonio Infection Site: Blood
D uration of Therapy: 10 days morpHINE Yes 2mg 2 mg, Slow Uni vers injection 2 01-25 IV Push, ity of mg 17:45: Q4HPRN, [place] 05 Starting Medical [facility] 01/25/21 Branch at 1245, Until Discontinu ed, Routine, Pain (scale 4-6) morpHINE 2020- No 2mg 2 mg, Slow Un caesar injection 2 01-25 IV Push, ity of mg 17:45: 17:13 Q4HPRN, [place] 05 :36 Starting Medical [facility] 01/25/21 Branch at 1245, Until 02/03/21 at 1213, Routine, Pain (scale 4-6) bumetanide 2020- No .5mg/h 0.5 mg/hr Univers (BUMEX) 10 01-25-06 (2.5 ity of mg in D5W 14:30: 15:15 mL/hr), IV [place] 50 mL 00 :21 Infusion, Medical infusion CONTINUOUS Branc h , Starting [facility] 01/25/21 at 0930 aspirin 2020-0 Yes 81mg 81 mg, Univers chewable 01-25 Oral, ity of tablet 81 14:00: DAILY, [place] mg 00 First dose Medical on [facility] 01/25/21 at 0900, Until Discontinu ed, Routine amiodarone Yes 200mg 200 mg, Uni vers (PACERONE) 01-25 Oral, ity of tablet 200 14:00: DAILY, [place] mg 00 First dose Medical on [facility] 01/25/21 at 0900, Until Discontinu ed, Routine aspirin Yes 81mg 81 mg, Univers chewable 01-25 Oral, ity of tablet 81 14:00: DAILY, [place] mg 00 First dose Medical on [facility] 01/25/21 at 0900, Until Discontinu ed, Routine amiodarone Yes 200mg 200 mg, Uni vers (PACERONE) 01-25 Oral, ity of tablet 200 14:00: DAILY, [place] mg 00 First dose Medical on [facility] 01/25/21 at 0900, Until Discontinu ed, Routine bumetanide 2020- No 1mg 1 mg, Slow Univers (BUMEX) 01-2505 IV Push, ity of injection 1 13:15: 13:49 ONCE, 1 [place] mg 00 :00 dose, [facility] 01/25/21 at Branch 0815, Routine ipratropium 2020- No 3mL 3 mL, Univ ers -albuteroL 01-25 0806 Inhalation it y of (DUONEB) 13:00: 22:48 , QID, [place] 0.5 mg-3 00 :59 First dose Medic al mg(2.5 mg on [facility])/3 mL 01/25/21 at nebulizer 0800, solution 3 Until mL Discontinu ed, Routine morpHINE No 2mg 2 mg, Slow Un caesar injection 2 01-25 IV Push, ity of mg 12:00: 11:08 ONCE, 1 [place] 00 :00 dose, [facility] Medical 01/25/21 at [place] 0700, Routine methylPREDN No 125mg 125 mg, U nivers ISolone 01-25 Intravenou ity o f sodium 04:15: 04:45 s, ONCE, 1 [place] succinate 00 :00 dose, Fri Medic al (SOLU-MEDRO 01/24/21 at [facility] L) 125 mg 2315, in NaCl Administer 0.9% (NS) over 30 piggyback Minutes, 100 mL ipratropium 0 Yes 3mL 3 mL, Unive rs -albuteroL 01-25 Inhalation ity of (DUONEB) 03:03: , QIDPRN, [place] 0.5 mg-3 44 Starting Medical mg(2.5 mg Fri01/24/21 Bran ch base)/3 mL at 2203, nebulizer Until solution 3 Discontinu mL ed, Routine, Wheezing, Shortness of Breath, Bronchospa sm, Chest tightness ipratropium 0 Yes 3mL 3 mL, Unive rs -albuteroL 01-25 Inhalation ity of (DUONEB) 03:03: , QIDPRN, [place] 0.5 mg-3 44 Starting Medical mg(2.5 mg Fri01/24/21 Bran ch base)/3 mL at 2203, nebulizer Until solution 3 Discontinu mL ed, Routine, Wheezing, Shortness of Breath, Bronchospa sm, Chest tightness gabapentin 2020-0 Yes 600mg 600 mg, Uni vers (NEURONTIN) 01-25 Oral, TID, it y of capsule 600 01:00: First dose [place] mg 00 on Fri [facility] 01/24/21 at Branch 1999, Until Discontinu ed, Routine gabapentin Yes 600mg 600 mg, Uni vers (NEURONTIN) 8-05 Oral, TID, it y of capsule 600 01:00: First dose [place] mg 00 on Fri [facility] 01/24/21 at Branch 2000, Until Discontinu ed, Routine aspirin 81 0 Yes 81mg Take 81 mg U nivers mg chewable 8-05 by mouth ity of tablet 00:53: daily. [address] gabapentin 0 Yes 600mg Take 600 Un caesar 600 mg 8-05 mg by ity of tablet 00:53: mouth 4 [place] [address] (four) Medical times Branch daily. enalapril 5 Yes 5mg Take 5 mg U nivers mg tablet 8-05 by mouth ity of 00:53: daily. [address] Branch Hydrocodone Yes 7.5{tbl Take 7.5 Univers -Acetaminop 805 } tablets by it y of hen 7.5-300 00:53: mouth [place] mg tablet 17 every 6 Medical (six) Branch hours as needed for Pain (scale 4-6). rivaroxaban Yes 20mg Take 20 mg Univers (XARELTO) 8-05 by mouth ity of 20 mg 00:53: daily. [place] tablet 17 [facility] Branch liothyronin Yes 25ug Take 25 Uni vers e 25 mcg 8-05 mcg by ity of tablet 00:53: mouth [place] [address] daily. [facility] Branch amiodarone Yes 200mg Take 200 Un caesar 200 mg 8-05 mg by ity of tablet 00:53: mouth [place] [address] daily. [facility] Branch ceFEPIme 0 No 1000mg 1,000 mg, U nivers (MAXIPIME) 8-04 08-05 IV ity of 1,000 mg in 23:30: 18:20 Piggyback, [place] NaCl 0.9% 00 :47 Q12H ABX, Medic al (NS) 50 mL First dose [facility] MINI-BAG on Fri01/24/21 at 1830, Until Discontinu ed, Administer over 30 Minutes, 50 mL
Reas on for Anti-Infec tive: Empiric Therapy for Suspected Infection< br>Empiric Therapy Site: Abdominal< br>Duratio n of therapy: 72 hours loperamide 2020- No 4mg 4 mg, Unive rs (IMODIUM 01-24 Oral, ity of A-D) 21:11: 09:53 Q4HPRN, [place] capsule 4 55 :36 Starting Medica l mg [facility] 01/24/21 Branch at 1611, Until Fri01/31/21 at 0453, Routine, Diarrhea iopamidol 2020- No [id number] 120mL 120 mL, Univers (ISOVUE 01-24 Intravenou ity o f 370-500 mL) 18:15: 17:00 s, ONCE, 1 [place] injection 00 :00 dose, Fri Medic al 120 mL 01/24/21 at Branch 1315, Routine diltiazem 2020- No 60mg 60 mg, Unive rs (CARDIZEM) 01-24 Oral, Q6H, it y of tablet 60 17:00: 11:26 First dose [place] mg 00 :48 on [facility] Medical 01/24/21 at Branch 1200, Until Discontinu ed, Routine digoxin 2020- No .5mg 500 mcg Univer s (LANOXIN) 01-24 (0.5 mg), ity of injection 16:30: 16:18 Slow IV [place] 500 mcg 00 :00 Push, Medical ONCE, 1 [place] dose, [facility] 01/24/21 at 1130, STAT amiodarone 2020- No .5mg/mi 0.5 mg/min Univers (CORDARONE) 01-24 n (16.6667 ity of 900 mg in 14:30: 08:29 mL/hr, [place] D5W 500 mL 00 :00 rounded to Med ical infusion 16.67 Branch mL/hr), IV Infusion, CONTINUOUS , Starting Fri01/24/21 at 0930, For 18 hours
A ll amiodarone infusions must be administer ed using a 0.22 micron in line filter. Administer via central line if available. Amiodarone infusions with concentrat ions > 2 mg/mL must be administer ed via central line.
bumetanide 2020- No 1.25mg 1.25 mg, Univers (BUMEX) 01-24 08- Slow IV ity of injection 08:00: 07:03 Push, [place] 1.25 mg 00 :00 ONCE, 1 Medical dose, Fri Branch 01/24/21 at 0300, STAT HYDROcodone 2020- No 1{tbl} 1 tablet, Univers -acetaminop 01-24 Oral, ONCE i ty of hen (NORCO) 07:07: 07:08 NOW, 1 [place] 10-325 mg 00 :00 dose, Fri Medic al tablet 1 01/24/21 at [place] tablet 0215, Routine NORepinephr No .05ug/k 0.05-1.5 Univers ine 16 mg 01-24 08-05 g/min mcg/kg/min it y of in NS 250 02:25: 15:16 ?149.7 kg [place] mL infusion 49 :41 (7.0172-21 Me dical RTU 0.5156 Branch mL/hr, rounded to 7.02-210.5 2 mL/hr), IV Infusion, TITRATE, MAP Goal > or = 65 mmHg, Starting Fri01/23/21 at 2125
In itiate titration at 0.05 mcg/kg/min . &nb sp;Increas e every 30 seconds to 5 minutes as needed to reach and maintain goal blood pressure.& nbsp;&nbsp ;Maximum dose = 1.5 mcg/kg/min . &nb sp;If goal not maintained at maximum allowed dose, contact prescriber .
digoxin No .25mg 250 mcg Unive rs (LANOXIN) 01-23 (0.25 mg), ity of injection 22:15: 21:12 Slow IV [place] 250 mcg 00 :00 Push, Medical ONCE, 1 Branch dose, Fri01/23/21 at 1715, STAT diltiazem 2020- No 10mg 10 mg, IV Un caesar (CARDIZEM 01-23 Push, ity of IV) 19:45: 18:36 ONCE, 1 [place] injection 00 :00 dose, [facility] Medic al 10 mg 01/23/21 at [place] 1445, STAT
Fa culty member approving Restricted medication : ARMANDO WALLS vancomycin No 1000mg 1,000 mg, Univers (VANCOCIN) 01-23 IV ity of 1,000 mg in 19:00: 21:12 Piggyback, [place] NaCl 0.9% 00 :19 Q12H ABX, Medic al (NS) 250 mL First dose Br anch VIAL-MATE (after IV last piggyback modificati on) on [facility] 01/23/21 at 1400, Until Discontinu ed, Administer over 60 Minutes, 250 mL
Reas on for Anti-Infec tive: Empiric Therapy for Suspected Infection< br>Empiric Therapy Site: Urine
D uration of therapy: 72 hours rivaroxaban No 20mg 20 mg, Uni vers (XARELTO) 01-23 Oral, ity of tablet 20 19:00: 18:46 ONCE, 1 [place] mg 00 :00 dose, [facility] 01/23/21 at [place] 1400, Routine liothyronin No 25ug 25 mcg, Un caesar e (CYTOMEL) 01-23 Oral, ity of tablet 25 19:00: 18:46 ONCE, 1 [place] mcg 00 :00 dose, [facility] 01/23/21 at Branch 1400, Routine atorvastati No 40mg 40 mg, Uni vers n (LIPITOR) 01-23 Oral, ity of tablet 40 19:00: 18:45 ONCE, 1 [place] mg 00 :00 dose, [facility] 01/23/21 at [place] 1400, Routine aspirin No 81mg 81 mg, Univers chewable 01-23 Oral, ity of tablet 81 19:00: 18:54 ONCE, 1 [place] mg 00 :00 dose, [facility] 01/23/21 at Branch 1400, Routine piperacilli 2020- No 2.25g 2.25 g, IV Univers n-tazobacta 01-23 Piggyback, i ty of m (ZOSYN) 15:00: 22:25 Q8H ABX, [place] 2.25 g in 00 :43 First dose Medi karine NaCl 0.9% on Fri [facility] (NS) 100 mL 01/23/21 at MINI-BAG 1000, Until Discontinu ed, Administer over 30 Minutes, 100 mL
Reas on for Anti-Infec tive: Empiric Therapy for Suspected Infection< br>Empi roseann Therapy Site: Urine
D uration of therapy: 72 hours NaCl 0.9% 2020- No 500mL at 999 [facility] ers (NS) bolus 01-23 mL/hr, 500 it y of infusion 12:45: 14:30 mL, IV [place] 500 mL 00 :00 Piggyback, Medical ONCE, 1 Branch dose, Fri01/23/21 at 0745, STAT amiodarone No .5mg/mi 0.5 mg/min Univers (CORDARONE) 01-2304 n (16.6667 ity of 900 mg in 11:45: 05:44 mL/hr, [place] D5W 500 mL 00 :00 rounded to Med ical infusion 16.67 Branch mL/hr), IV Infusion, CONTINUOUS , Starting Fri01/23/21 at 0645, For 18 hours
A ll amiodarone infusions must be administer ed using a 0.22 micron in line filter. Administer via central line if available. Amiodarone infusions with concentrat ions > 2 mg/mL must be administer ed via central line.
HYDROcodone 2020- No 1{tbl} 1 tablet, Univers -acetaminop 01-23 Oral, ity of hen (NORCO 11:45: 11:19 ONCE, 1 [place] as 5) 5-325 mg 00 :00 dose, Fri Med ical tablet 1 01/23/21 at Branch tablet 0645, MICHELLE NaCl 0.9% 2020- No 500mL at 999 [facility] ers (NS) bolus 01-23 mL/hr, 500 it y of infusion 08:00: 09:30 mL, IV [place] 500 mL 00 :00 Piggyback, Medical ONCE, 1 Branch dose, Fri01/23/21 at 0300, STAT NORepinephr 2020- No .05ug/k 0.05-1.5 Univers ine 4 mg in 01-23-04 g/min mcg/kg/min ity of 0.9% NaCl 07:00: 01:27 [place]149.7 kg [place] 250 mL 28 :04 (28.88-8 Medical infusion 42.0625 Branch RTU mL/hr, rounded to 28.07-842. 06 mL/hr), IV Infusion, TITRATE, MAP Goal > or = 65 mmHg, Starting Fri01/23/21 at 0200
In itiate titration at 0.05 mcg/kg/min . &nb sp;Increas e every 30 seconds to 5 minutes as needed to reach and maintain goal blood pressure.& nbsp;&nbsp ;Maximum dose = 1.5 mcg/kg/min . &nb sp;If goal not maintained at maximum allowed dose, contact prescriber .
vancomycin 2020- No 15mg/kg 1,500 mg Univers 1500 mg in 01-23 (rounded ity of NS 500 mL 07:00: 08:07 from [place] IV 00 :00 2,245.5 mg Medical Piggyback = 15 mg/kg Bran ch RTU 1,500 ?149.7 mg kg), IV Piggyback, ONCE, 1 dose, Fri01/23/21 at 0200, Administer over 90 Minutes
Reason for Anti-Infec tive: Documented Infection< br>Documen josé antonio Infection Site: Skin / Soft Tissue
Duration of Therapy: 7 days piperacilli 2020- No 3.375g 3.375 g, Univers n-tazobacta 01-23 IV ity of m (ZOSYN) 07:00: 06:58 [place]back, [place] 3.375 g in 00 :00 ONCE, 1 Medica l NaCl 0.9% dose, Fric h (NS) 100 mL 01/23/21 at MINI-BAG 0200, Administer over 30 Minutes, 100 mL
Reas on for Anti-Infec tive: Documented Infection< br>Documen josé antonio Infection Site: Skin / Soft Tissue
Duration of Therapy: 7 days magnesium No 2g 2 g, IV Univ ers sulfate in 01-23 Piggyback, it y of water 2 06:45: 06:59 ONCE, 1 [place] gram/50 mL 00 :00 dose, [facility] Medi karine (4 %) 01/23/21 at [place] infusion 2 0145, g Routine furosemide 2020- No 40mg 40 mg, IV U nivers (LASIX) 01-23 Push, ity of injection 06:15: 05:21 ONCE, 1 [place] 40 mg 00 :00 dose, [facility] 01/23/21 at [place] 0115, MICHELLE amiodarone 2020- No 1mg/min 1 mg/min Univers (CORDARONE) 01-23 (33.3333 ity of 900 mg in 05:45: 11:44 mL/hr, [place] D5W 500 mL 00 :00 rounded to Med ical infusion 33.33 Branch mL/hr), IV Infusion, CONTINUOUS , Starting [facility] 01/23/21 at 0045, For 6 hours
A ll amiodarone infusions must be administer ed using a 0.22 micron in line filter. Administer via central line if available. Amiodarone infusions with concentrat ions > 2 mg/mL must be administer ed via central line.
metoprolol No 5mg 5 mg, Slow Univers (LOPRESSOR) 01-23 IV Push, ity of injection 5 05:30: 04:48 ONCE, 1 [place] mg 00 :00 dose, [facility] 01/23/21 at Branch 0030, MICHELLE amiodarone 2020- No 150mg 150 mg, IV Univers 150 mg/100 01-23 Piggyback, it y of mL 05:30: 05:00 ONCE, 1 [place] (NEXTERONE) 00 :00 dose, [facility] Med ical RTU 01/23/21 at Branch infusion 0030, 150 mg Administer over 10 Minutes ertapenem 1 2020- No 1g Q24H Infuse 1 g Methodi g in sodium 2-20 -[address] chloride 00:00: 05:59 venous Hospit a 0.9 % MBP 00 :00 catheter l 50 mL IVPB daily for 14 days. amIODarone Yes 200mg QD Take 200 [facility] (PACERONE) 2-[address] 200 MG 20:24: mouth Hospita tablet 07 daily. l aspirin 81 0 Yes 81mg QD Chew 81 mg M ethodi mg chewable 2-[address] tablet 20:24: Hospita 07 l gabapentin 0 Yes 600mg Q.25D Take 600 M ethodi (NEURONTIN) 2-[address] 600 mg 20:24: mouth 4 Hospita tablet 07 (four) l times a day. HYDROcodone 0 Yes 1{tbl} Q6H Take 1 [facility] -acetaminop 2-[address] hen (NORCO) 20:24: mouth Hospi ta 10-325 mg 07 every 6 l per tablet (six) hours as needed (PS-7-10). liothyronin Yes 25ug QD Take 25 Met hodi e (CYTOMEL) 2-[address] 25 MCG 20:24: mouth [facility]ospita tablet 07 daily. l rivaroxaban Yes 20mg QD Take 20 mg Methodi (XARELTO) 2-[address] 20 mg 20:24: daily. Hospita tablet 07 l diclofenac 0 Yes 2g Q.[id number] Apply 2 g Methodi (VOLTAREN) 2-[id number] 1 % gel 20:24: 3D 3 (three) Hospi ta 07 times a l day. Shoulder zinc oxide Yes 1{appli Q.5D Apply 1 M ethodi 20 % 2-19 cation} applicatio st ointment 20:24: n Hospita 07 topically l 2 (two) times a day. Mucosal wound of penis and scrotum acetaminoph 0 Yes 650mg Q4H Take 650 M ethodi en 2-[address] (TYLENOL) 20:24: mouth [facility]ospita 325 MG 07 every 4 l tablet (four) hours as needed for mild pain or fever (scale 1-3). melatonin 3 Yes 6mg QD Take 6 mg M ethodi mg tablet 2-[address] 20:24: nightly as Hospita 07 needed for l sleep. polyethylen Yes 17g Q24H Take 17 g M ethodi e glycol 2-[address] (MIRALAX) 20:24: daily as Hosp anjelica 17 gram 07 needed for l packet constipati on. traMADoL [place] 61813 50mg Q4H Take 50 mg [facility] (ULTRAM) 50 2-[address] mg tablet 20:24: every 4 Hospi ta 07 (four) l hours as needed for moderate pain (scale(4-6 )) .acute pain. DAPTOmycin 2020- No 700mg QD Infuse 700 Methodi 350 mg 2-19 03-[address] recon soln 00:00: 05:59 venous Hosp anjelica injection 00 :00 catheter l daily for 15 days. predniSONE 2020- No 40mg QD Take 2 Meth romulo (DELTASONE) 2-03 02-[address] 20 mg 00:00: 05:59 (40 mg Hospita tablet 00 :00 total) by l mouth daily for 3 days. enalapril 2020- No 5mg QD Take 5 mg [facility] (VASOTEC) 5 07-25- by mouth st MG tablet 21:14: 00:00 daily. Hospi ta 58 :00 l doxycycline 2020-2020- No 100mg Q.5D Take 1 [facility] (VIBRAMYCIN 07-25- capsule st ) 100 MG 00:00: 05:59 (100 mg Hospi ta capsule 00 :00 total) by l mouth 2 (two) times a day with meals for 5 days. aspirin 81 Yes 81mg Take 81 mg U nivers mg chewable 1-28 by mouth ity of tablet 02:59: daily. [place] [address] Medical [place] gabapentin Yes 600mg Take 600 Un caesar 600 mg 1-28 mg by ity of tablet 02:59: mouth 4 [place] [address] (four) Medical times Branch daily. enalapril 5 2020-0 Yes 5mg Take 5 mg U nivers mg tablet 1-28 by mouth ity of 02:59: daily. [place] [address] Medical [place] Hydrocodone 2020-0 Yes 7.5{tbl Take 7.5 Univers -Acetaminop 1-28 } tablets by it y of hen 7.5-300 02:59: mouth [place] mg tablet 42 every 6 Medical (six) Branch hours as needed for Pain (scale 4-6). rivaroxaban Yes 20mg Take 20 mg Univers (XARELTO) 1-28 by mouth ity of 20 mg 02:59: daily. [place] tablet 42 [facility] Branch liothyronin 0 Yes 25ug Take 25 Uni vers e 25 mcg 1-28 mcg by ity of tablet 02:59: mouth [place] 42 daily. Medical Branch amiodarone 0 Yes 200mg Take 200 Un caesar 200 mg 1-28 mg by ity of tablet 02:59: mouth [place] 42 daily. Medical Branch aspirin 81 Yes 81mg Take 81 mg U nivers mg chewable 1-28 by mouth ity of tablet 02:59: daily. [address] Branch gabapentin Yes 600mg Take 600 Un caesar 600 mg 1-28 mg by ity of tablet 02:59: mouth 4 [place] 42 (four) Medical times Branch daily. enalapril 5 Yes 5mg Take 5 mg U nivers mg tablet 1-28 by mouth ity of 02:59: daily. [address] Branch Hydrocodone Yes 7.5{tbl Take 7.5 Univers -Acetaminop 1-28 } tablets by it y of hen 7.5-300 02:59: mouth [place] mg tablet 42 every 6 Medical (six) Branch hours as needed for Pain (scale 4-6). rivaroxaban Yes 20mg Take 20 mg Univers (XARELTO) 1-28 by mouth ity of 20 mg 02:59: daily. [facility] 42 Medical Branch liothyronin Yes 25ug Take 25 Uni vers e 25 mcg 1-28 mcg by ity of tablet 02:59: mouth [place] 42 daily. Medical Branch amiodarone Yes 200mg Take 200 Un caesar 200 mg 1-28 mg by ity of tablet 02:59: mouth [place] 42 daily. Medical Branch aspirin 81 0 Yes 81mg Take 81 mg U nivers mg chewable 1-28 by mouth ity of tablet 02:59: daily. [address] Branch gabapentin 0 Yes 600mg Take 600 Un caesar 600 mg 1-28 mg by ity of tablet 02:59: mouth 4 [place] 42 (four) Medical times Branch daily. enalapril 5 Yes 5mg Take 5 mg U nivers mg tablet -28 by mouth ity of 02:59: daily. [place] 42 Medical Branch Hydrocodone 0 Yes 7.5{tbl Take 7.5 Univers -Acetaminop -28 } tablets by it y of hen 7.5-300 02:59: mouth [place] mg tablet 42 every 6 Medical (six) Branch hours as needed for Pain (scale 4-6). rivaroxaban Yes 20mg Take 20 mg Univers (XARELTO) 1-28 by mouth ity of 20 mg 02:59: daily. [place] tablet 42 Medical Branch liothyronin Yes 25ug Take 25 Uni vers e 25 mcg 1-28 mcg by ity of tablet 02:59: mouth [place] 42 daily. Medical Branch amiodarone Yes 200mg Take 200 Un caesar 200 mg 1-28 mg by ity of tablet 02:59: mouth [place] 42 daily. Medical Branch metoprolol Yes 100mg 100 mg, Uni vers tartrate 1-27 Oral, BID, ity o f (LOPRESSOR) 02:00: First dose [place] tablet 100 00 (after Medical mg last Branch modificati on) on Fri07/18/20 at 1999, Until Discontinu ed, Routine atorvastati Yes 40mg QD Take 40 mg Methodi n (LIPITOR) 1-[address] 40 mg 00:00: nightly. Hospita tablet 00 l metoprolol Yes 100mg Take 100 Me thodi tartrate 1-[address] (LOPRESSOR) 00:00: mouth Hospi ta 100 mg 00 daily. l tablet atorvastati 2020- No [id number] 40mg Take 1 Univers n 40 mg -17 10-28 tablet by ity of tablet 00:00: 04:59 mouth [place] 00 :00 every Medical evening Branch for 90 days. metoprolol 2020- No [id number] 100mg Take 1 Univers tartrate 1-27 -28 tablet by ity o f 100 mg 00:00: 04:59 mouth 2 [place] tablet 00 :00 (two) Medical times Branch daily for 90 days. atorvastati 2020- No [id number] 40mg Take 1 Univers n 40 mg 07-19 tablet by ity of tablet 00:00: 04:59 mouth [place] 00 :00 every Medical evening Branch for 90 days. metoprolol 2020- No [id number] 100mg Take 1 Univers tartrate 07-19- tablet by ity o f 100 mg 00:00: 04:59 mouth 2 [place] tablet 00 :00 (two) Medical times Branch daily for 90 days. ciprofloxac 2020- No [id number] 500mg Take 1 Univers in HCl 500 07-19 tablet by ity of mg tablet 00:00: 05:59 mouth [place] 00 :00 every 12 Medical (twelve) Branch hours for 7 days. ciprofloxac 2020- No [id number] 500mg Take 1 Univers in HCl 500 07-19 tablet by ity of mg tablet 00:00: 05:59 mouth [place] 00 :00 every 12 Medical (twelve) Branch hours for 7 days. ciprofloxac 2020- No 500mg Take 500 Methodi in (CIPRO) 07-19 02-[address] 500 MG 00:00: 00:00 mouth. Hospita tablet 00 :00 l metoprolol 2020- No 75mg 75 mg, Univ ers tartrate 07-18- Oral, BID, ity of (LOPRESSOR) 02:00: 21:52 First dose [place] tablet 75 00 :57 (after Medical mg last Branch modificati on) on Fri07/17/20 at 2000, Until Discontinu ed, Routine ciprofloxac 2020- No 500mg 500 mg, U nivers in HCl 07-17 Oral, ity of (CIPRO) 15:30: 11:59 Q12HA2, 20 [place] as tablet 500 00 :00 doses, Medical mg First dose Branch (after last modificati on) on Fri07/17/20 at 0930, Last dose on Fri07/26/20 at 1800, MICHELLE
Re ason for Anti-Infec tive: Documented Infection< br>Documen josé antonio Infection Site: Blood
D uration of Therapy: 14 days diphenhydrA Yes 25mg 25 mg, Univ ers MINE 1-24 Oral, ity of (BENADRYL) 19:44: Q4HPRN, [place] tablet 25 47 Starting Medica l mg Sun Branch 07/16/20 at 1344, Until Discontinu ed, Routine, itching enoxaparin Yes 1mg/kg 150 mg Uni vers (LOVENOX) -24 (rounded ity of injection 02:00: from 149.7 [place] 150 mg 00 mg = 1 Medical mg/kg Branch ?149.7 kg), Subcutaneo us, Q12H, First dose on 07/15/20 at 2000, Until Discontinu ed, Routine heparin 2020- No 1000U/h 1,000 Unive rs 25,000 07-14 01-23 Units/hr ity of Units/250 22:46: 06:00 (10 [place] mL in NS 33 :00 mL/hr), IV Medic al Infusion, Branch TITRATE, Parameters in Admin. Instr., Starting 07/14/20 at 1646, For 1 day
CAU TION - If LMWH given in ER, AVOID bolus and start dose/drip 12hrs after ER dosage.&nb sp; M ust program rate using [employer] Infusion Pump Guardian Heparin Programmin g. &nbs p;Range, Dosing and Testing&nb sp; - aPTT < 40:&nb sp; B olus 3000 Units, Increase rate 100 Units/hr&n bsp; - aPTT 40-49:&nbs p; In crease rate 50 Units/hr&n bsp; - aPTT 50-70:&nbs p; NO CHANGE&nbs p; - aPTT 71-85:&nbs p; De crease rate 50 Units/hr&n bsp; - aPTT, 86-100:&nb sp; H old 30 min, decrease rate 100 Units/hr&n bsp; - aPTT 101-150:&n bsp; Hold 60 min, decrease rate 150 Units/hr&n bsp; - aPTT > 150: Hold 60 minutes, decrease rate 300 units/hr&n bsp; Check aPTT 6 hours after initiation , then Q6H after every change, aPTT Q12H once therapeuti c levels are reached.<b r> metoprolol No 50mg 50 mg, Univ ers tartrate 07-14 Oral, BID, ity of (LOPRESSOR) 14:00: 22:19 First dose [place] tablet 50 00 :57 (after Medical mg last Branch modificati on) on Fri07/14/20 at 0800, Until Discontinu ed, Routine morpHINE No 2mg 2 mg, Slow Un caesar injection 2 07-14 IV Push, ity of mg 13:34: 14:47 ONCE NOW, [place] 00 :00 1 dose, Medical Fri Branch 07/14/20 at 0745, Routine loperamide No 2mg 2 mg, Unive rs (IMODIUM 07-14 Oral, ity of A-D) 13:31: 01:49 Q4HPRN, 3 [place] capsule 2 00 :00 doses, Medical mg Starting Branch 07/14/20 at 0731, Until Discontinu ed, Routine, Diarrhea desitin Yes Topical Univers 30GM/zinc 07-14 (Apply To ity o f oxide 08:38: Affected [place] 45GM/maalox 11 Areas), Medic al 30mL/nystat PRN, Branch in 30GM Starting (COMPOUNDED Fri ) 07/14/20 at 0238, Until Discontinu ed, Routine, apply to bottom after BM heparin Yes 3000U FOR Univers (1,000 07-14 REBOLUSING ity of unit/mL, 10 05:59: , Starting [place] mL vial) 52 [facility] Medical for 07/13/20 at Branch Rebolusing 5649, Until Discontinu ed, Routine
Dosing based on aPTT testing parameters (refer to continuous heparin drip order).
ceFEPIme 2020- No 2000mg 2,000 mg, U nivers (MAXIPIME) 07-14 IV ity of 2,000 mg in 04:15: 15:22 Piggyback, [place] NaCl 0.9% 00 :29 Q8H ABX, Medica l (NS) 100 mL First dose Br anch MINI-BAG on Gaby 07/13/20 at 2215, Until Discontinu ed, 100 mL
R fely for Anti-Infec tive: Documented Infection< br>Documen josé antonio Infection Site: Blood<br&g t;Duration of Therapy: 10 days lactated 2020- No 500mL at 999 Unive rs ringers IV 07-14 mL/hr, 500 it y of infusion 03:45: 03:30 mL, IV [place] 500 mL 00 :00 Infusion, Medical ONCE, 1 Branch dose, Gaby 07/13/20 at 2145, STAT metoprolol 2020- No 25mg 25 mg, Univ ers (LOPRESSOR) 07-14 Oral, ity of 10 mg/mL 02:59: 03:41 ONCE, 1 [place] oral 00 :00 dose, Gab[facility] Medical suspension 07/13/20 at [facility] 25 mg 2100, Routine metoprolol 2020- No 25mg 25 mg, Univ ers tartrate 07-14 Oral, TID, ity of (LOPRESSOR) 02:00: 02:59 First dose [place] tablet 25 00 :25 on Gaby Medical mg 07/13/20 at Branch 2000, Until Discontinu ed, Routine lactated 2020- No 1000mL at 999 Univ ers ringers IV 07-13 mL/hr, ity of infusion 23:13: 23:43 1,000 mL, [place] as 1,000 mL 00 :00 IV Medical Infusion, Branch ONCE, 1 dose, Gaby 07/13/20 at 1715, STAT metoprolol 2020- No 5mg 5 mg, Slow Univers (LOPRESSOR) 07-13 IV Push, ity of injection 5 23:04: 23:43 ONCE NOW, [place] mg 00 :00 1 dose, Medical [place] Branch 07/13/20 at 1715, Routine atorvastati Yes 40mg 40 mg, Univ ers n (LIPITOR) 07-13 Oral, QPM, it y of tablet 40 23:00: First dose [place] mg 00 on [facility] Medical 07/13/20 at Branch 1700, Until Discontinu ed, Routine piperacilli 2020- No 3.375g 3.375 g, Univers n-tazobacta 07-13 IV ity of m (ZOSYN) 23:00: 03:10 Piggyback, [place] 3.375 g in 00 :06 Q6H ABX, Medic al NaCl 0.9% First dose Bran ch (NS) 100 mL on Gaby MINI-BAG 07/13/20 at 1700, Until Discontinu ed, 100 mL
R fely for Anti-Infec tive: Documented Infection< br>Documen josé antonio Infection Site: Blood
D uration of Therapy: 7 days metoprolol 2020- No 5mg 5 mg, Slow Univers (LOPRESSOR) 07-13 IV Push, ity of injection 5 23:00: 22:25 ONCE NOW, [place] mg 00 :00 1 dose, Medical [facility] Branch 07/13/20 at 1700, Routine perflutren 2020- No 2mL 2 mL, IV Un caesar lipid 07-13 Push, ity of microsphere 21:15: 18:00 ONCE, 1 [place] 00 :00 dose, [facility] Medical (DEFINITY) 07/13/20 at [facility] injection 2 1515, mL Routine ipratropium Yes 2{puff} 2 Puff, Univers (ATROVENT 07-13 Inhalation ity of HFA) 20:35: , Q6H, [place] inhaler 2 00 First dose Medi karine Puff (after Branch last modificati on) on [place] 07/13/20 at 1445, Until Discontinu ed, Routine
Is this order for a patient with suspected or confirmed COVID-19 infection? Yes metoprolol 2020- No 5mg 5 mg, Slow Univers (LOPRESSOR) 07-13 IV Push, ity of injection 5 20:25: 21:31 ONCE NOW, [place] mg 00 :00 1 dose, Medical [facility] Branch 07/13/20 at 1430, Routine lactated 2020- No 1000mL at 125 Univ ers ringers IV 07-1322 mL/hr, ity of infusion 16:45: 04:44 1,000 mL, Dean as 1,000 mL 00 :00 IV Medical Infusion, Branch CONTINUOUS , Starting [facility] 07/13/20 at 1045, Until [facility] 07/13/20 at 2244, Routine HYDROcodone 2020-0 Yes 1{tbl} 1 tablet, Univers -acetaminop 07-13 Oral, ity of hen (NORCO) 15:35: Q6HPRN, [place] as 10-325 mg 03 Starting Medica l tablet 1 [facility] tablet 07/13/20 at 0935, Until Discontinu ed, Pain (scale 4-6) liothyronin Yes 25ug 25 mcg, Uni vers e (CYTOMEL) 07-13 Oral, ity of tablet 25 15:00: DAILY, [place] mcg 00 First dose Medical on [facility] 07/13/20 at 0900, Until Discontinu ed, Routine aspirin Yes 81mg 81 mg, Univers chewable 07-13 Oral, ity of tablet 81 15:00: DAILY, [place] mg 00 First dose Medical on [facility] 07/13/20 at 0900, Until Discontinu ed, Routine amiodarone Yes 200mg 200 mg, Uni vers (PACERONE) 07-13 Oral, ity of tablet 200 15:00: DAILY, [place] mg 00 First dose Medical on [facility] 07/13/20 at 0900, Until Discontinu ed, Routine nystatin Yes Topical, Unive rs (NYSTOP) 07-13 BID, First ity o f powder 14:00: dose on [facility] 07/13/20 at Branch 0800, Until Discontinu ed, Routine gabapentin 2020-0 2020- No 600mg 600 mg, Un caesar (NEURONTIN) 07-13 Oral, QID, i ty of tablet 600 14:00: 15:33 First dose [place] mg 00 :05 on [facility] 07/13/20 at Branch 0800, Until Discontinu ed, Routine traMADoL 2020-0 2020- No 50mg 50 mg, Univer s (ULTRAM) 07-13 Oral, ity of tablet 50 08:53: 08:52 Q8HPRN, [place] mg 34 :34 Starting Medical [place]y Branch 07/13/20 at 0253, Until 07/15/20 at 0252, Routine, Pain (scale 4-6) acetaminoph Yes 650mg 650 mg, Un caesar en 07-13 Oral, ity of (TYLENOL) 08:53: Q6HPRN, [place] tablet 650 27 Starting Medic al mg Gaby Branch 07/13/20 at 0253, Until Discontinu ed, Routine, Pain (scale 1-3) ibuprofen 2020- No 600mg 600 mg, Uni vers (IBU) 07-13 Oral, ity of tablet 600 03:45: 02:44 ONCE, 1 [place] as mg 00 :00 dose, [facility] 07/12/20 at Branch 2145, MICHELLE furosemide 2020- No 40mg 40 mg, IV U nivers (LASIX) 07-13 Push, ity of injection 03:00: 02:01 ONCE, 1 [place] 40 mg 00 :00 dose, [facility] 07/12/20 at Branch 2100, MICHELLE heparin 2020- No 1000U/h 1,000 Unive rs 25,000 07-13 Units/hr ity of Units/250 02:47: 10:04 (10 [place] mL 47 :43 mL/hr), IV Medical (Premixed Infusion, Branc h Bag) in TITRATE, 0.45 % NS Parameters in Admin. Instr., Starting 07/12/20 at 2047
CA UTION - If LMWH given in ER, AVOID bolus and start next dose/drip 12 hrs after ER dosage.&nb sp; M ust program rate using programmab le infusion pump.&nbsp ; Catina ck with the ordering provider first prior to any administra tion should the patient be on existing/a dditional anticoagul ant therapy. Rang e, Dosing and Testing: &nbs p;FOR [facility], [facility], AND [facility]ES ONLY - aPTT < 35: & nbsp;Bolus 5000 units, increase rate 300 units/hr&n bsp; - aPTT 35-44:&nbs p; Humberto judie 3000 units, increase rate 200 units/hr&n bsp; - aPTT 45-54:&nbs p; In crease rate 100 units/hr&n bsp; - aPTT 55-85:&nbs p; NO CHANGE&nbs p; - aPTT 86-95:&nbs p; De crease rate 100 units/hr&n bsp; - aPTT 96-120:&nb sp; H old 30 minutes, decrease rate 150 units/hr&n bsp; - aPTT > 120:&n bsp; Hold 60 minutes, decrease rate 200 units/hr&n bsp; Check aPTT 6 hours after initiation , then Q6H after every change, aPTT Q12H once therapeuti c levels are reached.&n bsp; &nbs p; __ &n bsp;FOR [facility] ONLY - aPTT < 40: & nbsp;Bolus 5000 units, increase rate 300 units/hr&n bsp; - aPTT 40-49:&nbs p; Humberto judie 3000 units, increase rate 200 units/hr&n bsp; - aPTT 50-59:&nbs p; In crease rate 100 units/hr&n bsp; - aPTT 60-85:&nbs p; NO CHANGE&nbs p; - aPTT 86-95:&nbs p; De crease rate 100 units/hr&n bsp; - aPTT 96-120:&nb sp; H old 30 minutes, decrease rate 150 units/hr&n bsp; - aPTT > 120: Hold 60 minutes, decrease rate 200 units/hr&n bsp; Check aPTT 6 hours after initiation , then Q6H after every change, aPTT Q12H once therapeuti c levels are reached.&n bsp; DO NOT ADJUST INITIAL BOLUS OR INITIAL INFUSION RATE.
acetaminoph 2020- No 650mg 650 mg, U nivers en 07-13 Oral, ity of (TYLENOL) 02:30: 01:26 ONCE, 1 [place] tablet 650 00 :00 dose, Fri Medi karine mg 07/12/20 at Branch 2030, MICHELLE NaCl 0.9% 2020- No 1000mL at 999 Uni vers (NS) bolus 07-12 mL/hr, ity of infusion 23:30: 02:00 1,000 mL, Dean as 1,000 mL 00 :00 IV Medical Infusion, [place] ONCE, 1 dose, 07/12/20 at 1730, MICHELLE aspirin 81 Yes 81mg Take 81 mg U nivers mg chewable -06 by mouth ity of tablet 05:04: daily. [address] gabapentin Yes 600mg Take 600 Un caesar 600 mg 1-06 mg by ity of tablet 05:04: mouth 4 [place] [address] (four) Medical times Branch daily. enalapril 5 Yes 5mg Take 5 mg U nivers mg tablet -06 by mouth ity of 05:04: daily. [address] Hydrocodone Yes 7.5{tbl Take 7.5 Univers -Acetaminop -06 } tablets by it y of hen 7.5-300 05:04: mouth [place] mg tablet 04 every 6 Medical (six) Branch hours as needed for Pain (scale 4-6). rivaroxaban Yes 20mg Take 20 mg Univers (XARELTO) -06 by mouth ity of 20 mg 05:04: daily. [place] tablet 04 Medical Branch liothyronin 0 Yes 25ug Take 25 Uni vers e 25 mcg 1-06 mcg by ity of tablet 05:04: mouth [place] 04 daily. Medical Branch amiodarone 2020-0 Yes 200mg Take 200 Un caesar 200 mg 1-06 mg by ity of tablet 05:04: mouth [place] 04 daily. Medical Branch acidophilus 2020-0 Yes [id number] 1g Take 1 Univers 100 million 1-05 tablet by ity of cell tablet 00:00: mouth 2 [place] as 00 (two) Medical times Branch daily. acidophilus 2020-0 Yes [id number] 1g Take 1 Univers 100 million 1-05 tablet by ity of cell tablet 00:00: mouth 2 [place] as 00 (two) Medical times Branch daily. acidophilus 2020-0 Yes [id number] 1g Take 1 Univers 100 million 1-05 tablet by ity of cell tablet 00:00: mouth 2 [place] as 00 (two) Medical times Branch daily. acidophilus 2020-0 Yes [id number] 1g Take 1 Univers 100 million 1-05 tablet by ity of cell tablet 00:00: mouth 2 [place] as 00 (two) Medical times Branch daily. acidophilus 2020-0 Yes [id number] 1g Take 1 Univers 100 million 1-05 tablet by ity of cell tablet 00:00: mouth 2 [place] as 00 (two) Medical times Branch daily. acidophilus 2020-0 Yes [id number] 1g Take 1 Univers 100 million 1-05 tablet by ity of cell tablet 00:00: mouth 2 [place] 00 (two) Medical times Branch daily. acidophilus 2020-0 Yes [id number] 1g Take 1 Univers 100 million 1-05 tablet by ity of cell tablet 00:00: mouth 2 [place] as 00 (two) Medical times Branch daily. acidophilus 2020-0 Yes [id number] 1g Take 1 Univers 100 million 1-05 tablet by ity of cell tablet 00:00: mouth 2 [place] 00 (two) Medical times Branch daily. acidophilus 2020-0 Yes [id number] 1g Take 1 Univers 100 million 1-05 tablet by ity of cell tablet 00:00: mouth 2 [place] 00 (two) Medical times Branch daily. acidophilus 2020-0 Yes [id number] 1g Take 1 Univers 100 million 1-05 tablet by ity of cell tablet 00:00: mouth 2 [place] as 00 (two) Medical times Branch daily. NaCl 0.9% 2020- No [id number] 2g Infuse 2 g Univers (NS) PgBk 06-2716 every 12 ity o f 100 mL with 00:00: 05:59 (twelve) [place] ceFEPIme 2 00 :00 hours for Medi karine gram SolR 2 10 days. Bran ch g NaCl 0.9% 2020- No [id number] 750mg Infuse 750 Univers (NS) SolP 06-2716 mg every ity o f 250 mL with 00:00: 05:59 12 [place] Vancomycin 00 :00 (twelve) Medic al 750 mg SolR hours for Bra nch 750 mg 10 days. NaCl 0.9% Yes 10mL 10 mL, Univer s (NS) 06-26 Slow IV ity of injection 18:24: Push[place]N, [place] 10 [place] 20 Starting Medical 06/26/20 Branch at 1224, Until Discontinu ed, Routine, line maintenanc e lidocaine Yes 5mL 5 mL, Univers 1% (PF) 06-26 Subcutaneo ity of (XYLOCAINE) 18:24: us, PRN, [place] injection 5 20 Starting Medi karine mL 06/26/20 Branch at 1224, Until Discontinu ed, Routine, Local anesthesia Vancomycin Yes 750mg 750 mg, IV Univers 750 mg in 06-25 Piggyback, ity of NaCl 0.9% 12:30: Q12H ABX, [place] as (NS) 250 mL 00 First dose Me dical VIAL-MATE on Sun Branch 06/25/20 at 0630, Until Discontinu ed, 250 mL
R fely for Anti-Infec tive: Documented Infection< br>Documen josé antonio Infection Site: Skin / Soft Tissue
Duration of Therapy: Other (see Comments) amiodarone Yes 200mg 200 mg, Uni vers (PACERONE) 06-24 Oral, ity of tablet 200 15:00: DAILY, [place] mg 00 First dose Medical (after Branch last modificati on) on 06/24/20 at 0900, Until Discontinu ed, Routine sennosides Yes 8.6mg 8.6 mg, Uni vers (SENOKOT) 06-23 Oral, ity of tablet 8.6 15:00: DAILY, [place] mg 00 First dose Medical on Fri Branch 06/23/20 at 0900, Until Discontinu ed, Routine HYDROcodone Yes 7.5mg 7.5 mg, Un caesar -acetaminop 06-23 Oral, ity of hen (HYCET) 04:30: Q4HPRN, [place] as 7.5-325 00 Starting Medical mg/15 mL [place] Branch solution 06/22/20 7.5 mg at 2230, Until Discontinu ed, Pain (scale 4-6), Pain (scale 7-10) vancomycin No 1000mg 1,000 mg, Univers (VANCOCIN) 06-23 IV ity of 1,000 mg in 02:30: 16:55 Piggyback, [place] NaCl 0.9% 00 :00 Q8H ABX, Medica l (NS) 250 mL First dose Br anch VIAL-MATE on Gaby IV 06/22/20 piggyback at 2030, Until Discontinu ed, 250 mL
Reas on for Anti-Infec tive: Documented Infection< br>Documen josé antonio Infection Site: Skin / Soft Tissue
Duration of Therapy: Other (see Comments) rivaroxaban 2019-06 Yes 20mg 20 mg, Univ ers (XARELTO) Oral, ity of tablet 20 15:00: DAILY, [place] mg 00 First dose Medical on [facility] Branch 06/22/20 at 0900, Until Discontinu ed, Routine liothyronin 2019-06 Yes 25ug 25 mcg, Uni vers e (CYTOMEL) Oral, ity of tablet 25 15:00: DAILY, [place] mcg 00 First dose Medical on [facility] Branch 06/22/20 at 0900, Until Discontinu ed, Routine enalapril 2019-06 Yes 5mg 5 mg, Univers (VASOTEC) Oral, ity of tablet 5 mg 15:00: [place] 00 First dose Medical on [facility] Branch 06/22/20 at 0900, Until Discontinu ed, Routine ceFEPIme 2019-06 Yes 2g 2 g, IV Univer s (MAXIPIME) Piggyback, ity of 2 g in NaCl 15:00: Q12H ABX, [place] 0.9% (NS) 00 First dose Medi karine 100 mL on [facility] Branch MINI-BAG 06/22/20 at 0900, Until Discontinu ed, 100 mL
Reas on for Anti-Infec tive: Documented Infection< br>Documen josé antonio Infection Site: Skin / Soft Tissue
Duration of Therapy: 10 days aspirin 2019-06- No 81mg 81 mg, Univers chewable 06-25 Oral, ity of tablet 81 15:00: 23:51 DAILY, [place] mg 00 :05 First dose Medical on [facility] Branch 06/22/20 at 0900, Until Discontinu ed, Routine amiodarone 2019-06- No 200mg 200 mg, Un caesar (PACERONE) 06-24 Oral, ity of tablet 200 15:00: 05:04 DAILY, [place] mg 00 :19 First dose Medical on [facility] Branch 06/22/20 at 0900, Until Discontinu ed, Routine benzocaine- 2019-06 Yes 1{lozen 1 Lozenge, [facility] menthoL ge} Oral, ity of (CEPACOL 03:25: Q4HPRN, [place] SORE THROAT 04 Starting Medi karine (JOHNSON-MEN)) [facility] lozenge 1 06/21/20 Lozenge at 2124, Until Discontinu ed, Routine, Sore throat, cough phenol 2019-06 Yes 1{spray 1 [place], [facility] ers (SORE } Oral, PRN, ity of THROAT 03:24: Starting [place] (PHENOL)) 58 [facility] Medical 1.4 % spray 06/21/20 Bran ch bottle 1 at 2123, [place] Until Discontinu ed, Routine, Sore throat, cough codeine-gua 2019-06 Yes 10mL 10 mL, [facility] ers ifenesin Oral, ity of (ROBITUSSIN 03:24: Q4HPRN, [place] as AC) 10-100 35 Starting Medic al mg/5 mL [facility] Branch solution 10 06/21/20 mL at 2123, Until Discontinu ed, Routine, Cough gabapentin 2019-06 Yes 600mg 600 mg, Uni vers (NEURONTIN) 2-31 Oral, QID, it y of tablet 600 02:00: First dose [place] mg 00 on [facility] Medical 06/21/20 Branch at 2000, Until Discontinu ed, Routine HYDROcodone 2019-06- No 7.5mg 7.5 mg, U nivers -acetaminop 2-30 06-23 Oral, ity of hen (HYCET) 23:19: 04:20 Q6HPRN, [place] 7.5-325 11 :54 Starting Medical mg/15 mL [facility] Branch solution 06/21/20 7.5 mg at 1719, Until Gaby 06/22/20 at 2220, Pain (scale 4-6) albuterol 2019-06 Yes 2{puff} 2 Puff, Un caesar (VENTOLIN) 2-30 Inhalation ity of inhaler 2 22:34: , Q6HPRN, [place] as Puff 14 Starting [facility] Branch 06/21/20 at 1634, Until Discontinu ed, Routine, Wheezing, Shortness of Breath, Bronchospa sm, Chest tightness< br>Is this order for a patient with suspected or confirmed COVID-19 infection? Yes ondansetron 2019-06 Yes 4mg 4 mg, Slow Univers (ZOFRAN 2-30 IV Push, ity of (PF)) 22:34: Q6HPRN, [place] injection 4 14 Starting Medi karine mg [facility] 06/21/20 at 1634, Until Discontinu ed, Routine, Nausea and Vomiting (N/V) sennosides 2019-06 Yes 8.6mg 8.6 mg, Uni vers (SENOKOT) 2-30 Oral, ity of tablet 8.6 22:34: BIDPRN, [place] mg 13 Starting Medical [facility] Branch 06/21/20 at 1634, Until Discontinu ed, Routine, Constipati on acetaminoph 2019-06 Yes 650mg 650 mg, Un caesar en 2-30 Oral, ity of (TYLENOL) 22:34: Q6HPRN, [place] tablet 650 13 Starting Medic al mg [facility] 06/21/20 at 1634, Until Discontinu ed, Routine, Pain (scale 1-3), Temp > 38.5 C vancomycin 2019-06 2020- No 15mg/kg 1,500 mg Univers 1500 mg in 2-30 12-31 (rounded ity of NS 500 mL 22:15: 00:11 from [place] IV 00 :00 2,224.5 mg Medical Piggyback = 15 mg/kg Bran RTU 1,500 ?148.3 mg kg), IV Piggyback, ONCE, 1 dose, Fri06/21/20 at 1615
Re ason for Anti-Infec tive: Documented Infection< br>Documen josé antonio Infection Site: Skin / Soft Tissue
Duration of Therapy: Other (see Comments) ceFEPIme 2019-06 No 1000mg 1,000 mg, U nivers (MAXIPIME) 06-21 IV ity of injection 22:15: 21:34 Piggyback, [place] 1,000 mg 00 :00 ONCE, 1 Medical dose, Fri06/21/20 at 1615, STAT
Re ason for Anti-Infec tive: Documented Infection< br>Documen josé antonio Infection Site: Skin / Soft Tissue
Duration of Therapy: Other (see Comments) Hydrocodone Hydrocodone Yes Baljit (Schedule [facility]Ac[facility] II [facility]) [facility] TAKE 1 [facility] TABLET BY l MOUTH FOUR Outpati TIMES ent DAILY Clinics Gabapentin Gabapentin Yes Baljit [address] [facility] Enalapril Enalapril Yes Baljit [address] [facility] Maleate Maleate Judd [facility] Amiodarone Amiodarone Yes Baljit [address] [facility] HCl HCl [facility] Xarelto Xarelto Yes Baljit [address] [facility] Judd with food [facility] Liothyronin Liothyronin Yes Baljit [address] [facility] e Sodium e Sodium Judd on an [facility] stomach [facility] Aspirin Aspirin Yes Baljit [address] [facility] Vancomycin Vancomycin Yes Baljit as C [facility] HCl HCl Judd directed [facility] Liothyronin Liothyronin Yes Baljit [address] [facility] e Sodium e Sodium Judd on an [facility] stomach [facility] Immunizations Ordered Filled Immunization Date Status Comments Sourc e Immunization Name Name PPD (TB) 2021-03-13 Completed University 00:00:00 [facility] PPD (TB) 2021-03-13 Completed University 00:00:00 [facility] PPD (TB) 2021-03-13 Completed University 00:00:00 [facility] SARS-COV-2 COVID-19 2020-11-23 Completed Unive rsity of MODERNA VACCINE 00:00:00 [facility] [place] [facility] SARS-COV-2 COVID-19 2020-11-23 Completed Unive rsity of MODERNA VACCINE 00:00:00 [facility] [place] [facility] SARS-COV-2 COVID-19 2020-11-23 Completed Unive rsity of MODERNA VACCINE 00:00:00 [facility] [place] [facility] Influenza High Dose 2020-04-13 Completed Unive rsity of [place] 00:00:00 [facility] Influenza High Dose 2020-04-13 Completed Unive rsity of [place] 00:00:00 [facility] Influenza High Dose 2020-04-13 Completed Unive rsity of [place] 00:00:00 [facility] Influenza High Dose 2020-04-13 Completed Unive rsity of [place] 00:00:00 [facility] Influenza High Dose 2020-04-13 Completed Unive rsity of [place] 00:00:00 [facility] Influenza High Dose 2020-04-13 Completed Unive rsity of [place] 00:00:00 [facility] Influenza High Dose 2020-04-13 Completed Unive rsity of [place] 00:00:00 [facility] Influenza High Dose 2020-04-13 Completed Unive rsity of [place] 00:00:00 [facility] Influenza High Dose 2020-04-13 Completed Unive rsity of [place] 00:00:00 [facility] Influenza High Dose 2020-03-23 Completed Unive rsity of 00:00:00 [facility] Influenza High Dose 2020-03-23 Completed Unive rsity of 00:00:00 [facility] Influenza High Dose 2020-03-23 Completed Unive rsity of 00:00:00 [facility] Influenza High Dose 2020-03-23 Completed Unive rsity of 00:00:00 [facility] Influenza High Dose 2020-03-23 Completed Unive rsity of 00:00:00 [facility] Influenza High Dose 2018-04-14 Completed Unive rsity of 00:00:00 [facility] Influenza High Dose 2018-04-14 Completed Unive rsity of 00:00:00 [facility] Influenza High Dose 2018-04-14 Completed Unive rsity of 00:00:00 [facility] Influenza High Dose 2018-04-14 Completed Unive rsity of 00:00:00 [facility] Influenza High Dose 2018-04-14 Completed Unive rsity of 00:00:00 [facility] Influenza High Dose 2018-04-14 Completed Unive rsity of 00:00:00 [facility] Influenza High Dose 2018-04-14 Completed Unive rsity of 00:00:00 [facility] Influenza High Dose 2018-04-14 Completed Unive rsity of 00:00:00 [facility] Influenza High Dose 2018-04-14 Completed Unive rsity of 00:00:00 [facility] Influenza High Dose 2018-04-14 Completed Unive rsity of 00:00:00 [facility] Vital Signs Vital Name Observation Time Observation Value Comments Source Systolic blood 2021-06-29 00:00:00 105 mm[Hg] Univer sity of pressure [facility] Diastolic blood 2021-06-29 00:00:00 73 mm[Hg] Unive rsity of pressure [facility] Heart rate 2021-06-29 00:00:00 84 /min [facility] Respiratory rate 2021-06-29 00:00:00 20 /min [facility] in 2021-06-29 00:00:00 96 /min [facility] Arterial blood by [facility] Pulse oximetry Branch Body temperature 2021-06-28 15:25:00 36.33 Anahi [facility] Body weight 2021-06-28 15:25:00 114.306 kg [facility] BMI 2021-06-28 15:25:00 36.16 kg/m2 [facility] Systolic blood 2021-05-25 02:09:00 93 mm[Hg] Univer sity of pressure [facility] Diastolic blood 2021-05-25 02:09:00 78 mm[Hg] Unive rsity of pressure [place] [facility] Heart rate 2021-05-25 02:09:00 80 /min [facility] [place] [facility] Body temperature 2021-05-25 02:09:00 36.33 Anahi Univ ers[facility] [place] [facility] Respiratory rate 2021-05-25 02:09:00 18 /min Univ ersity [facility] [place] [facility] Oxygen saturation in 2021-05-25 02:09:00 97 /min University of Arterial blood by [place] Octavian karine Pulse oximetry Branch Body weight 2021-05-24 09:45:00 114.42 kg [facility] [place] [facility] BMI 2021-05-24 09:45:00 36.19 kg/m2 [facility] [place] [facility] Body height 2021-05-20 02:43:00 177.8 cm [facility] [place] [facility] Heart rate 2021-02-06 00:45:00 116 /min [facility] [place] [facility] Respiratory rate 2021-02-06 00:45:00 18 /min Univ ersity [facility] [place] [facility] Oxygen saturation in 2021-02-06 00:45:00 97 /min University of Arterial blood by [facility] Pulse oximetry Branch Systolic blood 2021-02-06 00:36:00 109 mm[Hg] Univer sity of pressure [place] [facility] Diastolic blood 2021-02-06 00:36:00 61 mm[Hg] Unive rsity of pressure [place] [facility] Body temperature 2021-02-06 00:36:00 36.67 Anahi Univ ersity [facility] [place] [facility] Body height 2021-01-25 03:24:00 177.8 cm [facility] [place] [facility] Body weight 2021-01-25 03:24:00 149.687 kg [facility] [place] [facility] BMI 2021-01-25 03:24:00 47.35 kg/m2 [facility] [place] [facility] Systolic blood 2021-01-30 15:00:00 97 mm[Hg] Univer sity of pressure [place] [facility] Diastolic blood 2021-01-30 15:00:00 63 mm[Hg] Unive rsity of pressure [place] [facility] Heart rate 2021-01-30 15:00:00 70 /min [facility] [place] [facility] Respiratory rate 2021-01-30 15:00:00 31 /min Univ ersity [facility] [place] [facility] Oxygen saturation in 2021-01-30 15:00:00 94 /min University of Arterial blood by [place] Octavian karine Pulse oximetry Branch Body temperature 2021-01-30 13:00:00 36 Anahi Univ ersity [facility] [place] [facility] Body height 2021-01-25 03:24:00 177.8 cm [facility] [place] [facility] Body weight 2021-01-25 03:24:00 149.687 kg [facility] [place] [facility] BMI 2021-01-25 03:24:00 47.35 kg/m2 [facility] [place] [facility] Oxygen saturation in 2020-07-19 22:00:00 96 /min University of Arterial blood by [place] Octavian karine Pulse oximetry Branch Respiratory rate 2020-07-19 18:35:00 18 /min Univ ersity [facility] [place] [facility] Systolic blood 2020-07-19 17:00:00 141 mm[Hg] Univer sity of pressure [place] [facility] Diastolic blood 2020-07-19 17:00:00 82 mm[Hg] Unive rsity of pressure [place] [facility] Heart rate 2020-07-19 17:00:00 81 /min [facility] [place] [facility] Body temperature 2020-07-19 17:00:00 36.83 Anahi Univ ersity [facility] [place] [facility] Body height 2020-07-13 07:39:00 177.8 cm [facility] [place] [facility] Body weight 2020-07-12 23:07:00 149.687 kg [facility] [place] [facility] BMI 2020-07-12 23:07:00 47.35 kg/m2 [facility] [place] [facility] Heart rate 2020-06-28 02:42:00 76 /min [facility] [place] [facility] Respiratory rate 2020-06-28 02:42:00 18 /min Univ ersity [facility] [place] [facility] Oxygen saturation in 2020-06-28 02:42:00 95 /min University of Arterial blood by [place] Octavian karine Pulse oximetry Branch Systolic blood 2020-06-28 02:30:00 127 mm[Hg] Univer sity of pressure [place] [facility] Diastolic blood 2020-06-28 02:30:00 90 mm[Hg] Unive rsity of pressure [place] [facility] Body temperature 2020-06-28 02:30:00 36.39 Anahi [facility] Body height 2020-06-22 00:23:00 177.8 cm [facility] Body weight 2020-06-22 00:23:00 148.326 kg [facility] BMI 2020-06-22 00:23:00 46.92 kg/m2 [facility] Systolic blood 2020-08-12 01:53:34 135 mm[Hg] [facility] pressure Diastolic blood 2020-08-12 01:53:34 61 mm[Hg] [facility] pressure Heart rate 2020-08-12 01:53:34 104 /min [facility] Body temperature 2020-08-12 01:53:34 35.72 Anahi [facility] Respiratory rate 2020-08-12 01:53:34 20 /min [facility] Oxygen saturation in 2020-08-12 01:53:34 95 /min [facility] Arterial blood by Pulse oximetry Body weight 2020-08-09 12:14:00 133.358 kg [facility] BMI 2020-08-09 12:14:00 42.18 kg/m2 [facility] Procedures Procedure Date / Time Performing Clinician Source Performed COVID-19 (ID NOW RAPID 2021-06-28 20:42:00 Armando Walls [facility] TESTING) [facility] URINALYSIS 2021-06-28 16:32:00 Singer [facility] COMP. METABOLIC PANEL 2021-06-28 15:29:00 Armando Walls [facility] ([id number]) [facility] CBC WITH DIFF 2021-06-28 15:29:00 Singer [facility] [id number] 2021-05-30 00:00:00 ENCPL [id number] 2021-05-30 00:00:00 ENCPL [id number] 2021-05-30 00:00:00 ENCPL [id number] 2021-05-30 00:00:00 ENCPL [id number] 2021-05-30 00:00:00 ENCPL [id number] 2021-05-30 00:00:00 ENCPL [id number] 2021-05-30 00:00:00 ENCPL [id number] 2021-05-30 00:00:00 ENCPL [id number] 2021-05-30 00:00:00 ENCPL US RETROPERITONEAL 2021-05-23 16:45:[address] [facility] COMPLETE [facility] Branch BASIC METABOLIC PANEL 2021-05-23 11:12[facility]00 [facility] ([facility], K, CL, CO2, GLUCOSE, Medica l Branch BUN, CREATININE, CA) CBC WITH DIFF 2021-05-23 [facility]:12[facility] 2021-05-21 11:22:00 [facility] (NA, K, CL, CO2, GLUCOSE, Medica l Branch BUN, CREATININE, CA) CBC WITH DIFF 2021-05-21 11:22[facility] 2021-05-20 10:39:00 [facility] (NA, K, CL, CO2, GLUCOSE, Medica l Branch BUN, CREATININE, CA) CBC WITH DIFF 2021-05-20 10:39:00 [facility] COMP. METABOLIC PANEL 2021-05-19 21:31:00 Sandra David [facility] ([id number]) Medical Branch CBC WITH DIFF 2021-05-19 21:31:00 Sandra David [facility] URINALYSIS 2021-05-19 21:31:00 Sandra David [facility] URINE CULTURE 2021-05-19 21:31:00 Sandra David [facility] COVID-19 (ID NOW RAPID 2021-05-19 21:31:00 Sandra David [facility] TESTING) Medical Branch LAB ONLY COVID 2021-05-19 21:31:[address] [facility] INTERPRETATION [facility] [id number] 2021-05-02 00:00:00 ENCKY [id number] 2021-05-02 00:00:00 ENCKY [id number] 2021-05-02 00:00:00 ENCKY [id number] 2021-04-26 00:00:00 ENCKY [id number] 2021-04-26 00:00:00 ENCKY [id number] 2021-04-26 00:00:00 ENCKY [id number] 2021-04-26 00:00:00 ENCKY [id number] 2021-04-26 00:00:00 ENCKY [id number] 2021-04-26 00:00:00 ENCKY [id number] 2021-04-26 00:00:00 ENCKY [id number] 2021-04-26 00:00:00 ENCKY [id number] 2021-04-26 00:00:00 ENCKY [id number] 2021-04-26 00:00:00 ENCKY [id number] 2021-04-26 00:00:00 ENCKY [id number] 2021-04-26 00:00:00 ENCKY [id number] 2021-04-26 00:00:00 ENCKY [id number] 2021-04-26 00:00:00 ENCKY IRON PANEL 2021-02-05 20:11:00 [facility] MAGNESIUM 2021-02-05 09:22:00 [facility] FERRITIN SERUM 2021-02-05 09:22:00 [facility] BASIC METABOLIC PANEL 2021-02-05 09:22:00 [facility] ([facility], K, CL, CO2, GLUCOSE, Medica l Branch BUN, CREATININE, CA) CBC WITHOUT DIFF 2021-02-05 09:22:00 Rhiannon [facility] MAGNESIUM 2021-02-04 09:08:00 [facility] BASIC METABOLIC PANEL 2021-02-04 09:08:00 [facility] ([facility], K, CL, CO2, GLUCOSE, Medica l Branch BUN, CREATININE, CA) CBC WITHOUT DIFF 2021-02-04 09:08:00 Rhiannon [facility] MAGNESIUM 2021-02-03 09:13:00 [facility]OLIC PANEL 2021-02-03 09:13:00 Juan Jose [facility] (NA, K, CL, CO2, GLUCOSE, Medica l Branch BUN, CREATININE, CA) CBC WITH DIFF 2021-02-03 09:13:00 Juan Jose [facility] MAGNESIUM 2021-02-02 09:12:00 Juan Jose [facility] BASIC METABOLIC PANEL 2021-02-02 09:12:00 [facility] (NA, K, CL, CO2, GLUCOSE, Medica l Branch BUN, CREATININE, CA) CBC WITH DIFF 2021-02-02 09:12:00 Juan Jose [facility] PHOSPHORUS 2021-02-01 10:41:00 [facility] MAGN[facility]IUM 2021-02-01 10:41:00 [facility] BASIC METABOLIC PANEL 2021-02-01 10:41:00 [facility] (NA, K, CL, CO2, GLUCOSE, Medica l Branch BUN, CREATININE, CA) CBC WITH DIFF 2021-02-01 10:41:00 Aaron [facility] MAGNESIUM 2021-01-31 08:54:00 Jennifer [facility] BASIC METABOLIC PANEL 2021-01-31 08:54:00 [facility] (NA, K, CL, CO2, GLUCOSE, Medica l Branch BUN, CREATININE, CA) CBC WITH DIFF 2021-01-31 08:54:00 Jennifer [facility] MAGNESIUM 2021-01-31 08:54:00 Jennifer [facility] BASIC METABOLIC PANEL 2021-01-31 08:54:00 Amjae [facility] (NA, K, CL, CO2, GLUCOSE, Medica l Branch BUN, CREATININE, CA) CBC WITH DIFF 2021-01-31 08:54:00 Jennifer [facility] CBC WITH DIFF 2021-01-31 01:48:00 Faraz [facility] CBC WITH DIFF 2021-01-31 01:48:00 Faraz [facility] AC PANEL 20 + LACTIC ACID 2021-01-30 22:15:00 Mai Burton [facility] AC PANEL 20 + LACTIC ACID 2021-01-30 22:15:00 Mai Burton [facility] VANCOMYCIN TROUGH 2021-01-30 20:55:00 Jennifer [facility] VANCOMYCIN TROUGH 2021-01-30 20:55:00 Jennifer [facility] FL TIME OR 2021-01-30 20:47:17 Zulma [facility] (NON-REPORTABLE) [facility] FL TIME OR 2021-01-30 20:47:17 Zulma Chan [facility] (NON-REPORTABLE) [facility] ARTERIOGRAM 2021-01-30 16:25:00 Jeffery Pimentel [facility] CENTRAL VENOUS ACCESS 2021-01-30 16:25:00 Jeffery Pimentel [facility] CATHETER PLACEMENT Medical [facility] h ARTERIOGRAM 2021-01-30 16:25:00 Jeffery Pimentel [facility] CENTRAL VENOUS ACCESS 2021-01-30 16:25:00 Jeffery Pimentel [facility] CATHETER PLACEMENT Medical [facility] h ABORH CONFIRMATION (LAB 2021-01-30 14:03:00 Zulma [facility] ONLY) Medical Branch ABORH CONFIRMATION (LAB 2021-01-30 14:03:00 Zulma [facility] ONLY) Medical Branch HB ABO GROUPING 2021-01-30 13:31:00 Zulma [facility] HB ABO GROUPING 2021-01-30 13:31:00 Maya, [facility] BASIC METABOLIC PANEL 2021-01-30 08:50:00 Max Florian [facility] (NA, K, CL, CO2, GLUCOSE, Medica l Branch BUN, CREATININE, CA) CBC WITH DIFF 2021-01-30 08:50:00 Max Florian [facility] PROTHROMBIN TIME / INR 2021-01-30 08:50:[address] [facility] ACTIVATED PARTIAL 2021-01-30 08:50:00 Max Florian [facility] BASIC METABOLIC PANEL 2021-01-30 08:50:00 Max Florian [facility] (NA, K, CL, CO2, GLUCOSE, Medica l Branch BUN, CREATININE, CA) CBC WITH DIFF 2021-01-30 08:50:00 Max Florian [facility] PROTHROMBIN TIME / INR 2021-01-30 08:50:[address] [facility] ACTIVATED PARTIAL 2021-01-30 08:50:00 [facility] (ID NOW RAPID 2021-01-30 05:25:00 Arlene [facility] TESTING) Medical Branch LAB ONLY COVID 2021-01-30 05:25:00 Arlene [facility] COVID-19 (ID NOW RAPID 2021-01-30 05:25:00 Arlene [facility] TESTING) Medical Branch LAB ONLY COVID 2021-[facility]-30 [facility] 2021-01-30 04:13:00 Max Florian [facility] POCT GLUCOSE (AUTOMATED) 2021-01-30 04:13:00 Max Florian [facility] ACTIVATED PARTIAL 2021-01-30 04:10:00 Podila [facility] ACTIVATED PARTIAL 2021-01-30 04:10:00 Podila [facility] MRSA / MSSA SCREEN BY 2021-01-30 03:40:00 Podila, [facility] MRSA / MSSA SCREEN BY 2021-01-30 03:40:00 Podila, [facility] PCR, [facility] XR CHEST 1 VW 2021-01-29 20:44:45 Max Florian [facility] XR CHEST 1 VW 2021-01-29 20:44:45 Max Florian [facility] VANCOMYCIN TROUGH 2021-01-29 20:02:00 Anival [facility] VANCOMYCIN TROUGH 2021-01-29 20:02:00 [facility] WITH DIFF 2021-01-28 07:01:00 [facility] ACTIVATED PARTIAL 2021-01-28 07:01:00 [facility] CBC WITH DIFF 2021-01-28 07:01:00 [facility] ACTIVATED PARTIAL 2021-01-28 07:01:00 Humaira [facility] PHOSPHORUS 2021-01-28 06:32:00 [facility] 2021-01-28 06:32:00 [facility] BASIC METABOLIC PANEL 2021-01-28 06:32:00 Max Florian [facility] (NA, K, CL, CO2, GLUCOSE, Medica l Branch BUN, CREATININE, CA) PHOSPHORUS 2021-01-28 06:32:00 [facility] 2021-01-28 06:32:00 Max Florian [facility] BASIC METABOLIC PANEL 2021-01-28 06:32:00 Max Florian [facility] (NA, K, CL, CO2, GLUCOSE, Medica l Branch BUN, CREATININE, CA) AC ABG + LACTIC ACID 2021-01-27 21:23:00 Max Florian [facility] AC ABG + LACTIC ACID 2021-01-27 21:23:00 Max Florian [facility] ACUTE CARE VENOUS BLOOD 2021-01-27 20:35:00 Max Florian [facility] GAS [facility] ACUTE CARE VENOUS BLOOD 2021-01-27 20:35:00 Max Florian [facility] XR CHEST 1 VW 2021-01-27 18:20:40 [facility] XR CHEST 1 VW 2021-01-27 18:20:40 Max Florian [facility] PHOSPHORUS 2021-01-27 09:53:00 [facility] 2021-01-27 09:53:00 [facility] COMP. METABOLIC PANEL 2021-01-27 09:53:00 Max Florian [facility] ([id number]) [facility] CBC WITH DIFF 2021-01-27 09:53:00 [facility] N-TERMINAL PRO-BNP 2021-01-27 09:53:00 [facility] 2021-01-27 09:53:00 [facility] 2021-01-27 09:53:00 [facility] COMP. METABOLIC PANEL 2021-01-27 09:53:00 [facility][id number][facility] CBC WITH DIFF 2021-01-27 09:53:00 [facility] N-[facility]MINAL PRO-BNP 2021-01-27 09:53:00 Max Florian [facility] BLOOD CULTURE SCREEN 2021-01-26 18:33:00 Max Florian [facility] BLOOD CULTURE SCREEN 2021-01-26 18:33:00 Max Florian [facility] BLOOD CULTURE SCREEN 2021-01-26 18:30:00 Max Florian [facility] hospital BLOOD CULTURE SCREEN 2021-01-26 18:30:00 Max Florian [facility] VANCOMYCIN TROUGH 2021-01-26 18:28:00 Anival [facility] VANCOMYCIN TROUGH 2021-01-26 18:28:00 Anival [facility] PHOSPHORUS 2021-01-26 09:03:00 [facility] 2021-01-26 09:03:00 Max Florian [facility] COMP. METABOLIC PANEL 2021-01-26 09:03:00 Max Florian [facility] ([id number]) [facility] N-TERMINAL PRO-BNP 2021-01-26 09:03:00 Max Florian [facility] PHOSPHORUS 2021-01-26 09:03:00 [facility] MAGNESIUM 2021-01-26 09:03:00 [facility] COMP. METABOLIC PANEL 2021-01-26 09:03:00 Anival [facility] ([id number]) [facility] N-TERMINAL PRO-BNP 2021-01-26 09:03:00 Anival [facility] CBC WITH DIFF 2021-01-26 09:02:00 [facility] CBC WITH DIFF 2021-01-26 09:02:00 [facility] MAGNESIUM 2021-01-25 23:40:00 [facility] BASIC METABOLIC PANEL 2021-01-25 23:40:00 Anival [facility] (NA, K, CL, CO2, GLUCOSE, Medica l Branch BUN, CREATININE, CA) MAGNESIUM 2021-01-25 23:40:00 [facility] BASIC METABOLIC PANEL 2021-01-25 23:40:00 Anival [facility] (NA, K, CL, CO2, GLUCOSE, Medica l Branch BUN, CREATININE, CA) CT THORAX WO CONTRAST 2021-01-25 21:59:14 Anival Max [facility] CT THORAX WO CONTRAST 2021-01-25 21:59:14 Anival [facility] XR CHEST 1 VW 2021-01-25 12:27:17 Jaya Tavarez [facility] XR CHEST 1 VW 2021-01-25 12:27:17 [facility] ACUTE CARE ARTERIAL BLOOD 2021-01-25 10:09:00 [facility] ART[facility] BLOOD 2021-01-25 10:09:00 Jaya Tavarez iv[facility] acute hospital LACTIC ACID WHOLE BLOOD 2021-01-25 07:40:00 Edionalessandro [facility] LACTIC ACID WHOLE BLOOD 2021-01-25 07:40:00 Edionalessandro [facility] ACUTE CARE ARTERIAL BLOOD 2021-01-25 07:39:00 [facility] ARTERIAL BLOOD 2021-01-25 07:39:00 HumairaJaya [facility] CBC WITH DIFF 2021-01-25 07:27:00 [facility] CBC WITH DIFF 2021-01-25 07:27:00 [facility] MAGNESIUM 2021-01-25 07:26:00 [facility] COMP. METABOLIC PANEL 2021-01-25 07:26:00 [facility] ([id number][facility] N-TERMINAL PRO-BNP 2021-01-25 07:26:00 [facility] 2021-01-25 07:26[facility] MET[facility]OLIC PANEL 2021-01-25 07:26:00 Max Florian [facility] ([id number]) [facility] N-TERMINAL PRO-BNP 2021-01-25 07:26:00 [facility] 2021-01-24 18:07:00 Singer [facility] VANCOMYCIN TROUGH 2021-01-24 18:07:00 Singer [facility] CT ABDOMEN PELVIS W 2021-01-24 17:07:32 Singer Armando [facility] CONTRAST [facility] CT ABDOMEN PELVIS W 2021-01-24 17:07:32 Armando Walls [facility] CONTRAST [facility] COMP. METABOLIC PANEL 2021-01-24 14:10:00 Armando Walls [facility] ([id number]) Medical Branch CBC WITH DIFF 2021-01-24 14:10:00 Singer [facility] N-TERMINAL PRO-BNP 2021-01-24 14:10:00 Singer [facility] COMP. METABOLIC PANEL 2021-01-24 14:10:00 Armando Walls [facility] ([id number]) Medical Branch CBC WITH DIFF 2021-01-24 14:10:00 Singer [facility] N-TERMINAL PRO-BNP 2021-01-24 14:10:00 Singer [facility] AC PANEL 20 + LACTIC ACID 2021-01-24 13:15:00 Armando Walls [facility] AC PANEL 20 + LACTIC ACID 2021-01-24 13:15:00 Armando Walls [facility] XR CHEST 1 VW 2021-01-24 07:23:47 Dany Russell [facility] XR CHEST 1 VW 2021-01-24 07:23:47 Dany Russell [facility] HB ECG ROUTINE & RHYTHM 2021-01-24 02:08:01 Dany Russell [facility] HB ECG ROUTINE & RHYTHM 2021-01-24 02:08:01 Dany Russell [facility] COMP. METABOLIC PANEL 2021-01-24 01:32:00 Dany Russell [facility] ([id number]) [facility] CBC WITH DIFF 2021-01-24 01:32:00 Dany Russell [facility] N-TERMINAL PRO-BNP 2021-01-24 01:32:00 Dany [facility] COMP. METABOLIC PANEL 2021-01-24 01:32:00 Dany Russell [facility] ([id number]) [facility] CBC WITH DIFF 2021-01-24 01:32:00 Dany Russell [facility] N-TERMINAL PRO-BNP 2021-01-24 01:32:00 Dany [facility] ACUTE CARE ARTERIAL BLOOD 2021-01-24 01:27:00 Dany Russell [facility] ACUTE CARE ARTERIAL BLOOD 2021-01-24 01:27:00 Dany Russell [facility] CRITICAL CARE 2021-01-23 12:54:00 [facility] CRITICAL CARE 2021-01-23 12:54:00 [facility] URINE CULTURE 2021-01-23 11:34:00 Sandra [facility] URINE CULTURE 2021-01-23 11:34:00 Sandra [facility] AC PANEL 21 + LACTIC ACID 2021-01-23 11:33:00 Sandra David [facility] AC PANEL 21 + LACTIC ACID 2021-01-23 11:33:00 Sandra David [facility] URINALYSIS 2021-01-23 08:02:00 Sandra [facility] URINALYSIS 2021-01-23 08:02:00 Sandra [facility] GRAM POSITIVE BLOOD 2021-01-23 07:43:00 Sandra David [facility] PROBE-ANAEROBIC BLOOD CULTURE SCREEN 2021-01-23 07:43:00 Sandra David [facility] BLOOD CULTURE WORKUP 2021-01-23 07:43:00 Sandra David [facility] GRAM POSITIVE BLOOD 2021-01-23 07:43:00 [facility] PROBE-ANAEROBIC BLOOD CULTURE SCREEN 2021-01-23 07:43:00 Sandra David [facility] BLOOD CULTURE WORKUP 2021-01-23 07:43:00 Sandra David [facility] UT INSERT NON-TUNNEL CV 2021-01-23 07:36:10 [facility] UT INSERT NON-TUNNEL CV 2021-01-23 07:36:10 Sandra David U [facility] CATH Medical Branch XR CHEST 1 VW 2021-01-23 06:28:57 Sandra [facility] XR CHEST 1 VW 2021-01-23 06:28:57 Sandra David [facility] XR CHEST 1 VW 2021-01-23 04:56:05 Sandra David [facility] XR CHEST 1 VW 2021-01-23 04:56:05 Sandra [facility] AC PANEL 21 + LACTIC ACID 2021-01-23 04:35:00 Sandra David [facility] COVID-19 (ID NOW RAPID 2021-01-23 04:35:00 Sandra David [facility] TESTING) Medical Branch LAB ONLY COVID 2021-01-23 04:35:00 Sandra David [facility] AC PANEL 21 + LACTIC ACID 2021-01-23 04:35:00 Sandra David [facility] COVID-19 (ID NOW RAPID 2021-01-23 04:35:00 Sandra David [facility] TESTING) Medical Branch LAB ONLY COVID 2021-01-23 04:35:[address] [facility] INTERPRETATION [facility] LIPASE 2021-01-23 04:34:[address] [facility] Medical Rodessa MAGNESIUM 2021-01-23 04:34:00 Sandra [facility] TROPONIN I 2021-01-23 04:34:00 Sandra [facility] THYROID STIMULATING 2021-01-23 04:34:00 Sandra [facility] HORMONE [facility] HEPATIC FUNCTION PANEL 2021-01-23 04:34:00 [facility] ([id number][facility] (ALB,T.PRO,BILI Medical Branch T,BU/BC,ALT,AST,ALK PHOS) BASIC METABOLIC PANEL 2021-01-23 04:34:00 Sandra David [facility] (NA, K, CL, CO2, GLUCOSE, Medica l Branch BUN, CREATININE, CA) CBC WITH DIFF 2021-01-23 04:34:00 Sandra [facility] PROTHROMBIN TIME / INR 2021-01-23 04:34:00 Sandra David [facility] N-TERMINAL PRO-BNP 2021-01-23 04:34:00 Sandra David [facility] LIPASE 2021-01-23 04:34:00 Sandra [facility] MAGNESIUM 2021-01-23 04:34:00 Sandra [facility] TROPONIN I 2021-01-23 04:34:00 Sandra [facility] THYROID STIMULATING 2021-01-23 04:34:00 Sandra David [facility] HORMONE [facility] HEPATIC FUNCTION PANEL 2021-01-23 04:34:00 [facility] ([id number][facility] (ALB,T.PRO,BILI Medical Branch T,BU/BC,ALT,AST,ALK PHOS) BASIC METABOLIC PANEL 2021-01-23 04:34:00 Sandra David [facility] (NA, K, CL, CO2, GLUCOSE, Medica l Branch BUN, CREATININE, CA) CBC WITH DIFF 2021-01-23 04:34:00 [facility] PROTHROMBIN TIME / INR 2021-01-23 04:34:00 [facility] 2021-01-23 04:34:00 Sandra David [facility] HB ECG ROUTINE & RHYTHM 2021-01-23 04:20:05 Sandra David [facility] HB ECG ROUTINE & RHYTHM 2021-01-23 04:20:05 Sandra David U [facility] EMERGENCY DEPARTMENT 2021-01-22 05:01:00 Doctor Unassigned, No U [facility] DOCUMENTS Name Medical Branch HOSPITAL ADMISSION 2021-01-22 05:01:00 Doctor Unassigned, No [facility] EMERGENCY DEPARTMENT 2021-01-22 05:01:00 Doctor Unassigned, No U [facility] Medical Branch HOSPITAL ADMISSION 2021-01-22 05:01:00 Doctor Unassigned, No [facility] AUTHORIZATION FOR RELEASE 2020-11-16 05:01:00 Doctor Unassigned, No [facility] Branch [id number] 2020-10-28 00:00:00 ENCPL [id number] 2020-10-28 00:00:00 ENCPL [id number] 2020-10-28 00:00:00 ENCPL [id number] 2020-10-28 00:00:00 ENCPL HC COMPLETE BLD COUNT 2020-08-11 12:50:00 Augusto Barbour [facility] W/AUTO DIFF COMPREHENSIVE METABOLIC 2020-08-11 12:50:00 Augusto Barbour [facility] PANEL ESTIMATED GFR 2020-08-11 12:50:00 Augusto Barbour [facility] CONSULT TO OSTOMY CARE 2020-08-10 19:56:06 Jeffery Alcala [facility] NURSE VENIPUNC NEED PHYS 2020-08-10 17:25:00 [facility] RX HC COMPLETE BLD COUNT 2020-08-10 10:27:00 Augusto Barbour [facility] W/AUTO DIFF COMPREHENSIVE METABOLIC 2020-08-10 10:27:00 Augusto Barbour [facility] PANEL ESTIMATED GFR 2020-08-10 10:27:00 Augusto Barbour [facility] CREATINE KINASE, TOTAL 2020-08-09 12:10:00 Cha Head [facility] ([facility]) HC COMPLETE BLD COUNT 2020-08-09 12:10:00 Augusto Barbour [facility] W/AUTO DIFF COMPREHENSIVE METABOLIC 2020-08-09 12:10:00 Augusto Barbour [facility] PANEL ESTIMATED GFR 2020-08-09 12:10:00 [facility] HC COMPLETE BLD COUNT 2020-08-08 11:26:00 [facility] W/AUTO DIFF COMPREHENSIVE METABOLIC 2020-08-08 11:26:00 [facility] PANEL ESTIMATED GFR 2020-08-08 11:26:00 [facility] CREATINE KINASE, TOTAL 2020-08-08 11:26:00 [facility] ([facility]) VANCOMYCIN LEVEL, TROUGH 2020-08-07 09:54:00 Chico Walker [facility] CBC HEMOGRAM 2020-08-07 09:54:00 Awe, [facility] BASIC METABOLIC PANEL 2020-08-07 09:54:00 Awe, [facility] ESTIMATED GFR 2020-08-07 09:54:00 Awe, [facility] CBC HEMOGRAM 2020-08-06 10:11:00 Awe, [facility] BASIC METABOLIC PANEL 2020-08-06 10:11:00 e, [facility] ESTIMATED GFR 2020-08-06 10:11:00 Awe, [facility] URINE CULTURE 2020-08-05 18:05:00 Awe, [facility] URINALYSIS SCREEN AND 2020-08-05 18:05:00 [facility], [facility] MICROSCOPY, WITH REFLEX TO CULTURE CBC HEMOGRAM 2020-08-05 10:34:00 [facility] COMPREHENSIVE METABOLIC 2020-08-05 10:34:00 [facility] PANEL ESTIMATED GFR 2020-08-05 10:34:00 [facility] UT AN ELECTIVE 2020-08-04 19:24:56 Dean Stevens spital ENDOTRACHEAL AIRWAY INCISION AND DRAINAGE, 2020-08-04 19:16:00 [facility] WOUND, POSTOPERATIVE, COMPLEX XR CHEST 1 VW PORTABLE 2020-08-04 12:29:44 [facility] CBC WITH PLATELET AND 2020-08-04 09:30:00 Treasure Amanda [facility] DIFFERENTIAL PROTHROMBIN TIME WITH INR 2020-08-04 09:30:00 Treasure Amanda [facility] METABOLIC 2020-08-04 09:30:00 [facility] PANEL ESTIMATED GFR 2020-08-04 09:30:00 [facility]AD 2020-08-04 07:12:03 [facility] TYPE AND SCREEN 2020-08-04 07:05:00 [facility] COVID-19 QUALITATIVE 2020-08-04 07:02:00 [facility] CONSULT TO OSTOMY CARE 2020-08-04 06:07:27 [facility] NURSE LACTIC ACID LEVEL, SEPSIS 2020-08-03 09:47:00 [facility] - NOW AND REPEAT 2X EVERY 3 HOURS HC COMPLETE BLD COUNT 2020-08-03 09:47:00 [facility] W/AUTO DIFF PROTHROMBIN TIME WITH INR 2020-08-03 09:47:00 [facility] METABOLIC 2020-08-03 09:47:00 [facility] PANEL ESTIMATED GFR 2020-08-03 09:47:00 [facility] spital LACTIC ACID LEVEL, SEPSIS 2020-08-03 06:24:00 [facility] - NOW AND REPEAT 2X EVERY 3 HOURS AEROBIC CULTURE 2020-08-03 04:13:00 [facility] GRAM STAIN 2020-08-03 04:13:00 [facility] BLOOD CULTURE, AEROBIC & 2020-08-03 02:23:00 [facility] ANAEROBIC BLOOD CULTURE, AEROBIC & 2020-08-03 01:57:00 [facility] ANAEROBIC HC COMPLETE BLD COUNT 2020-08-03 01:55:00 Carline Garcia [facility] W/AUTO DIFF LACTIC ACID LEVEL, SEPSIS 2020-08-03 01:55:00 Ruddy Avalos [facility] - NOW AND REPEAT 2X EVERY 3 HOURS COMPREHENSIVE METABOLIC 2020-08-03 01:55:00 CarlosCarline [facility] PANEL ESTIMATED GFR 2020-08-03 01:55:00 [facility] BASIC METABOLIC PANEL 2020-07-25 11:46:00 [facility] Chay HC COMPLETE BLD COUNT 2020-07-25 11:46:00 [facility] W/AUTO DIFF Chay ESTIMATED GFR 2020-07-25 11:46:00 [facility] Chay BASIC METABOLIC PANEL 2020-07-24 11:46:00 [facility] Demian [facility] Chay HC COMPLETE BLD COUNT 2020-07-24 11:46:00 [facility] Demian [facility] W/AUTO DIFF Chay ESTIMATED GFR 2020-07-24 11:46:00 [facility] Chay COVID-19 (ID NOW RAPID 2020-07-19 22:19:00 [facility] 2020-07-19 12:11:00 [facility] BASIC METABOLIC PANEL 2020-07-19 12:11:00 [facility] (NA, K, CL, CO2, GLUCOSE, Medica l Branch BUN, CREATININE, CA) CBC WITHOUT DIFF 2020-07-19 12:11:00 Johan Meoller [facility] MAGNESIUM 2020-07-18 11:18:00 [facility] THYROID STIMULATING 2020-07-18 11:18:00 Cory Rubin [facility] HORMONE [facility] BASIC METABOLIC PANEL 2020-07-18 11:18:00 [facility] [place] (NA, K, CL, CO2, GLUCOSE, Medica l Branch BUN, CREATININE, CA) CBC WITHOUT DIFF 2020-07-18 11:18:00 Johan Moeller [facility] POCT GLUCOSE (AUTOMATED) 2020-07-17 23:03:00 Bing Medrano [facility] CBC WITHOUT DIFF 2020-07-17 19:40:00 Johan Moeller [facility] BLOOD CULTURE SCREEN 2020-07-17 16:45:00 Johan Moeller [facility] URINALYSIS 2020-07-17 16:45:00 [facility] BLOOD CULT[facility] SCREEN 2020-07-17 16:44:00 Johan Moeller [facility] POCT GLUCOSE (AUTOMATED) 2020-07-17 13:54:00 Bing Medrano [facility] BASIC METABOLIC PANEL 2020-07-17 10:12:00 Johan [facility] [place] (NA, K, CL, CO2, GLUCOSE, Medica l Branch BUN, CREATININE, CA) CBC WITHOUT DIFF 2020-07-17 10:12:00 Johan Moeller [facility] LACTIC ACID WHOLE BLOOD 2020-07-17 10:11:00 Matthew Rodriguez [facility] BASIC METABOLIC PANEL 2020-07-16 10:49:00 Johan Moeller [facility] [place] (NA, K, CL, CO2, GLUCOSE, Medica l Branch BUN, CREATININE, CA) D-DIMER 2020-07-15 19:37:00 Johan [facility] FECES CULTURE 2020-07-15 12:36:00 [facility] FECAL LEUKOCYTES 2020-07-15 12:36:00 Lissette Walton [facility] CALPROTECTIN, FECAL 2020-07-15 12:36:00 Lissette Walton [facility] BLOOD CULTURE SCREEN 2020-07-15 08:27:00 Bing Medrano [facility] ACTIVATED PARTIAL 2020-07-15 08:14:00 [facility] EXTRA TUBE LT. GREEN 2020-07-15 08:14:00 [facility] BLOOD [facility]ULTURE SCREEN 2020-07-15 08:13:00 Bing Medrano [facility] ACTIVATED PARTIAL 2020-07-15 01:01:00 [facility] PART[facility] 2020-07-14 17:49:00 [facility] MAGNESIUM 2020-07-14 12:02:00 [facility] BASIC METABOLIC PANEL 2020-07-14 12:02:00 [facility] (NA, K, CL, CO2, GLUCOSE, Medica l Branch BUN, CREATININE, CA) ACTIVATED PARTIAL 2020-07-14 12:01:00 [facility] MAGNESIUM 2020-07-14 03:31:00 [facility] BASIC METABOLIC PANEL 2020-07-14 03:31:00 [facility] (NA, K, CL, CO2, GLUCOSE, Medica l Branch BUN, CREATININE, CA) ACTIVATED PARTIAL 2020-07-14 03:31:00 [facility] POCT GLUCOSE (AUTOMATED) 2020-07-13 22:37:00 Bing Medrano [facility] OSMOLALITY URINE 2020-07-13 21:46:00 Lissette Walton [facility] MICROALBUMIN URINE 2020-07-13 21:46:00 Lissette Walton [facility] GALV/CLC ONLY - URINE 2020-07-13 21:46:00 Lissette Walton [facility] DRUG (IMMUNOASSAY) - 4 ER Medica l Branch PANEL URINALYSIS 2020-07-13 21:46:00 [facility] CREATININE, URINE RANDOM 2020-07-13 21:46:00 Aaron Delarosa [facility] UREA NITROGEN, URINE 2020-07-13 21:46:00 [facility] RANDOM [facility] SODIUM, URINE RANDOM 2020-07-13 21:46:00 Aaron Delarosa [facility] URINE DRUG (LCMSMS) - 2020-07-13 21:46:00 Lissette Walton [facility] SYNTHETIC OPIATES PANEL Medical Branch TROPONIN I 2020-07-13 18:19:00 Aaron Delarosa [facility] ACTIVATED PARTIAL 2020-07-13 18:19:00 Lissette Walton [facility] ECHO ROUTINE W/DOPPLER 2020-07-13 17:22:21 Lissette Walton [facility] COLOR [facility] D-DIMER 2020-07-13 09:07:00 Aaron Delarosa [facility] ACTIVATED PARTIAL 2020-07-13 09:07:00 Aaron Delarosa [facility] LACTATE DEHYDROGENASE 2020-07-13 09:06:00 [facility] FERRITIN SERUM 2020-07-13 09:06:00 Aaron Delarosa [facility] OSMOLALITY, SERUM OR 2020-07-13 09:06:00 Lissette [facility] PLASMA [facility] C-REACTIVE PROTEIN 2020-07-13 09:06:00 Aaron Delarosa [facility] TROPONIN I 2020-07-13 09:06:00 Aaron Delarosa [facility] HEPATIC FUNCTION PANEL 2020-07-13 09:06:00 Aaron Delarosa [facility] ([id number]) (ALB,T.PRO,BILI Medical Branch T,BU/BC,ALT,AST,ALK PHOS) LIPID PANEL ([id number])(TOTAL 2020-07-13 09:06:00 Aaron Delarosa [facility] CHOLESTEROL, [facility] TRIGLYCERIDES, HDL) EXTRA TUBE LAV 2020-07-13 09:06:00 Bing [facility] PROCALCITONIN 2020-07-13 09:06:00 [place], Aaron [facility] CRITICAL CARE 2020-07-13 04:45:00 Donald Wilson [place] [facility] AC ABG + LACTIC ACID 2020-07-13 02:37:00 Donald Wilson [facility] acute hospital BLOOD CULTURE SCREEN 2020-07-12 23:56:00 Donald Wilson [facility] BLOOD CULTURE WORKUP 2020-07-12 23:56:00 Donald Wilson [facility] GRAM NEGATIVE BLOOD 2020-07-12 23:56:00 [facility] Branch PROBE-AEROBIC XR CHEST 1 VW 2020-07-12 23:51:38 Donald Wilson [facility] HB ECG ROUTINE & RHYTHM 2020-07-12 23:44:42 Donald Wilson [facility] BLOOD CULTURE SCREEN 2020-07-12 23:34:00 Donald Wilson [facility] acute hospital TROPONIN I 2020-07-12 23:34:00 Donald Wilson [facility] COMP. METABOLIC PANEL 2020-07-12 23:34:00 Donald Wilson [facility] ([id number]) Medical Branch CBC WITH DIFF 2020-07-12 23:34:00 Donald Wilson [facility] PROTHROMBIN TIME / INR 2020-07-12 23:34:[address] [facility] ACTIVATED PARTIAL 2020-07-12 23:34:00 Donald Wilson [facility]-BNP 2020-07-12 23:34:00 Donald [facility] BLOOD CULTURE WORKUP 2020-07-12 23:34:00 Donald Wilson [facility] acute hospital COVID-19 (ID NOW RAPID 2020-07-12 23:33:00 Donald Wilson [facility] TESTING) Medical Branch LAB ONLY COVID 2020-07-12 23:33:00 Donald Wilson [facility] LACTIC ACID WHOLE BLOOD 2020-07-12 23:32:00 Donald Wilson [facility] EKG-12 LEAD 2020-07-12 23:04:29 WilsonDonald renee [facility] EMERGENCY DEPARTMENT 2020-07-12 06:01:00 Doctor Unassigned, No [facility] [employer] [facility] [place] DOCUMENTS Name [facility] EMERGENCY SERVICES 2020-07-12 06:01:00 Doctor Unassigned, No [facility] AGREEMENTS AND Name [facility] AUTHORIZATIONS BASIC METABOLIC PANEL 2020-06-27 11:07:00 Makenna Olivas [facility] (NA, K, CL, CO2, GLUCOSE, Medica l Branch BUN, CREATININE, CA) VANCOMYCIN TROUGH 2020-06-27 11:07:00 Max Florian [facility] CBC WITH DIFF 2020-06-27 11:07:00 Brendon [facility] BASIC METABOLIC PANEL 2020-06-26 11:40:00 Makenna Olivas [facility] (NA, K, CL, CO2, GLUCOSE, Medica l Branch BUN, CREATININE, CA) VANCOMYCIN TROUGH 2020-06-26 11:40:00 Jaya Tavarez [facility] CBC WITH DIFF 2020-06-26 11:40:00 Makenna Olivas [facility] VANCOMYCIN TROUGH 2020-06-25 23:36:00 Brendon [facility] AMIODARONE & METABOLITE 2020-06-25 17:09:00 Geoffrey Jean [facility] BASIC METABOLIC PANEL 2020-06-25 11:18:00 Makenna Olivas [facility] (NA, K, CL, CO2, GLUCOSE, Medica l Branch BUN, CREATININE, CA) VANCOMYCIN TROUGH 2020-06-25 11:18:00 [facility] WITH DIFF 2020-06-25 11:18:00 [facility] 2020-06-24 19:24:00 [facility] BASIC METABOLIC PANEL 2020-06-24 12:16:00 Makenna Olivas [facility] (NA, K, CL, CO2, GLUCOSE, Medica l Branch BUN, CREATININE, CA) CBC WITH DIFF 2020-06-24 12:16:00 [facility] 2020-06-23 18:11:00 Brendon [facility] BASIC METABOLIC PANEL 2020-06-23 10:23:00 [facility] ([facility], K, CL, CO2, GLUCOSE, Medica l Branch BUN, CREATININE, CA) CBC WITH DIFF 2020-06-23 10:23:00 Brendon [facility] BASIC METABOLIC PANEL 2020-06-22 09:57:00 Brendon [facility] (NA, K, CL, CO2, GLUCOSE, Medica l Branch BUN, CREATININE, CA) CBC WITH DIFF 2020-06-22 09:57:00 Brendon [facility] WOUND/ASPIRATE OR ABSCESS 2020-06-21 22:23:00 [facility] WOUND CULTURE 2020-06-21 22:23:00 Damian Castorena [facility] XR CHEST 1 VW 2020-06-21 21:47:55 Damian Castorena [facility] COVID-19 (ID NOW RAPID 2020-06-21 20:30:00 Damian Castorena [facility] TESTING) Medical Branch LAB ONLY COVID 2020-06-21 20:30:00 Damian Castorena [facility] BLOOD CULTURE SCREEN 2020-06-21 20:29:00 Damian Castorena General acute hospital CREATINE KINASE 2020-06-21 20:29:00 Damian Castorena [facility] HEPATIC FUNCTION PANEL 2020-06-21 20:29:00 Damian Castorena [facility] ([id number]) (ALB,T.PRO,BILI Medical Branch T,BU/BC,ALT,AST,ALK PHOS) BASIC METABOLIC PANEL 2020-06-21 20:29:00 Damian Castorena [facility] (NA, K, CL, CO2, GLUCOSE, Medica l Branch BUN, CREATININE, CA) SEDIMENTATION RATE 2020-06-21 20:29:00 Damian [facility] CBC WITH DIFF 2020-06-21 20:29:00 Damian Castorena [place] [facility] HIGH SENSITIVITY CRP 2020-06-21 20:29:00 Damian Castorena General acute hospital PROCALCITONIN 2020-06-21 20:29:00 [facility] LACTIC ACID WHOLE BLOOD 2020-06-21 20:28:00 Damian Castorena [facility] BLOOD CULTURE SCREEN 2020-06-21 20:15:00 Damian Castorena General acute hospital Plan of Care Planned Activity Planned Date Details Comments Source Future Scheduled 2021-06-13 COVID-19 VACCINE (1) Met [facility] Test 18:34:58 [code = COVID-19 VACCINE (1)] Future Scheduled 2021-06-13 65+ P[facility]UMOCOCCAL [facility] Test 18:34:58 VACCINE (1 of 2 - PPSV23) [code = 65+ PNEUMOCOCCAL VACCINE (1 of 2 - PPSV23)] Future Scheduled 2021-06-13 [facility] 18:34:58 (procedure) [code = 162522871] Future Scheduled 2021-06-13 [facility]OS[facility] SCREENING [facility] Test 18:34:58 [code = COLONOSCOPY SCREENING] Future Scheduled 2021-06-13 SHINGLES VACCINES (#1) [facility] 18:34:58 [code = SHINGLES VACCINES (#1)] Future Scheduled 2021-06-13 INFLUENZA VACCINE [facility] Test 18:34:58 [code = INFLUENZA VACCINE] Encounters Start End Encounter Admission Attending Care Care Encounter Source Date/Time Date/Time Type Type Clinicians Facility Department ID 2021-07-19 Outpatient 3 [id number] ENCPL REF [id number] ENCPL 13:25:09 1202 2021-07-19 Outpatient 3 [id number] ENCKY SAIMA [id number] ENCKY 13:10:09 [id number] 2021-07-19 Outpatient 3 [id number] ENCKY SAIMA [id number] ENCKY 13:09:10 [id number] 2021-07-19 Outpatient 3 [id number] ENCKY REF [id number] ENCKY 13:08:40 [id number] 2021-07-19 Outpatient 3 [id number] ENCPL REF [id number] ENCPL 12:42:56 0816 2021-07-19 Outpatient 3 [id number] ENCPL REF [id number] ENCPL 12:02:03 8 2021-07-19 Outpatient 3 ZULMA ENCSL OTH [id number] ENCSL 11:35:44 RADHA 20048 2021-07-19 Outpatient 3 [id number] ENCSL REF [id number] ENCSL 11:35:17 32354 2021-07-19 Outpatient 3 LOYD, ENCSL OTH [id number] ENCSL 11:29:04 CHA 01333 2021-07-19 Outpatient 3 LOYD ENCSL OTH [id number] ENCSL 11:28:25 CHA 26244 2021-07-19 Outpatient 3 [id number] ENCSL REF [id number] ENCSL 11:27:29 [id number] 2021-07-19 Outpatient 3 [id number] ENCSL REF [id number] ENCSL 11:27:10 [id number] 2021-07-19 Outpatient 3 [id number] ENCSL OT [id number] ENCSL 10:12:52 72801 2021-07-19 Outpatient 3 [id number] ENCPL REF [id number] ENCPL 10:12:50 7152021-07-19 Outpatient 3 [id number] ENCSL REF [id number] ENCSL 10:12:15 [id number] 2021-07-19 Outpatient 3 [id number] ENCSL REF [id number] ENCSL 10:11:48 [id number] 2020-01-21 Outpatient GLENN WU ENCCLR [id number] ENCCLR 14:55:32 ADMISSION MALISSA 2021-09-29 2021-09-29 Outpatient [id number] DISP DISP 606 Dispatc 01:43:00 01:43:00 3 Health 2021-09-28 2021-09-28 Outpatient [id number] DISP DISP 606 256 Dispatc 11:19:00 11:19:00 3 h Health 2021-09-26 2021-09-26 Outpatient [id number] DISP DISP 606 256- Dispatc 09:18:00 09:18:00 3 [facility] 2021-09-24 2021-09-24 Outpatient [id number] DISP DISP 606 [id number] Dispatc 05:20:00 05:20:00 3 [id number] [facility] 2021-07-09 2021-07-09 Outpatient [facility] [id number] 19:49:00 19:49:00 -[id number] [place] [facility] 2021-07-03 2021-07-03 Outpatient [facility] [id number] 01:34:00 01:34:00 -[id number] [place] [facility] 2021-07-02 2021-07-02 Outpatient [facility] [id number] 00:54:00 00:54:00 -[id number] [place] [facility] 2021-05-04 2021-07-02 Outpatient READMISSOFELIA ARTHUR, ENCCLR ENCCLR [id number] ENCCLR 00:00:00 00:00:00 N RANDEE 2021-06-30 2021-06-30 Outpatient [facility] [id number] 10:00:00 10:00:00 -[id number] [place] [facility] 2021-06-29 2021-06-29 Outpatient [facility] [id number] 00:08:00 00:08:00 -[id number] [place] [facility] 2021-06-28 2021-06-28 Emergency X [facility] ERT [id number] Univers 09:23:00 18:59:00 ARMANDO barrera of [facility] 2021-06-28 2021-06-28 Emergency [facility] [id number] Univers 09:23:00 18:59:00 Armando OBRIEN 350.1.13.10 tami cespedes [facility] 4.2.7.2.686 [facility] [id number] [address] 2021-05-25 2021-05-25 Transition FARAZ Hayes 1.2.840.114 [id number] Univers 00:00:00 00:00:00 of Patrick DANIEL [id number] [place] [id number] [facility] 403 Branch 2021-05-19 2021-05-24 Inpatient X MADDI [facility] CORIE [id number] Univers 14:34:00 21:30:00 АЛЕКСАНДР itsera of [facility] 2021-05-19 2021-05-24 [facility] Sandra David [facility] 1.2.84 0.114 [id number] Univers 14:34:00 21:30:00 Encounter Александр Linda 350.1.13.10 ity of [place] [id number] [facility] 081 Branch 2021-05-04 2021-05-04 Outpatient RECERTIFIC SANDHYA, ENCCLR ENCCLR [id number] ENCCLR 00:00:00 00:00:00 ATION RANDEE 2020-11-06 2021-03-05 Outpatient RECERTIFIC ILBRITTANYONWU, ENCCLR ENCCLR 2 [id number] ENCCLR 00:00:00 00:00:00 ATION HUBERT 2021-02-06 2021-02-06 Transition Faraz Hayes 1.2.840.114 [id number] Univers 00:00:00 00:00:00 of Care Brooke Daniel [id number] it [place] of [place] [id number] [facility] 403 Branch 2021-01-22 2021-02-05 [facility] [id number] Univers 23:13:00 20:34:00 OWEN itsera of [facility] 2021-01-22 2021-02-05 [facility] Sandra David 1.2.84 0.114 [id number] Univers 23:13:00 20:34:00 Encounter Armando Walls 350.1.13.10 ity of [facility] 4.2.7.2.686 [place] Owen Hallman [phone] Medical Brenda Vee 100 Branch 2021-01-30 2021-01-30 Surgery Kendy Pimentel 1.2.840.114 [id number] Univers 09:00:00 11:11:00 Jeffery Monroy 350.1.13.10 ity of [facility] 4.2.7.2.686 Dean as [phone] [facility] 103 Branch 2020-11-16 2020-11-16 Orders Doctor ALMAS 1.2.840.114 [id number] Univers 00:00:00 00:00:00 Only Unassigned, GUSTAVO 350.1.13.10 ity of [place] [facility] 4.2.7.2.686 [place] as [id number] [facility] 009 Branch 2020-11-06 2020-11-06 Outpatient CINDY HELMCLLos ENCCLR [id number] ENCCLR 00:00:00 00:00:00 Eugenia GASPAR 2020-09-27 2020-09-27 Outpatient KNOW, [facility] [id number] [facility] 09:30:00 09:30:00 DOES_NOT [id number] [facility] 2020-08-02 2020-08-11 [facility]. 1.2.840.1 [id number] Methodi 19:32:00 20:24:00 Encounter Jesus Kelly 18997.1.[address] [facility] 3.430.2.7 H [facility] .3.875077 l [place] Claudio .8 2020-08-04 2020-08-04 Anesthesia Ey, 1.2.840.1 [id number] Methodi 13:16:00 14:29:00 Event Emmy Florina [address]2581.1.[address] 3.430.2.7 Hospit a .3.164135 l .8 2020-08-04 2020-08-04 Surgery Fredrick, 1.2.840.1 [id number] Methodi 13:00:00 14:05:[address] 3.430.2.7 Hospit a .3.896911 l .8 2020-08-02 2020-08-02 Travel 1.2.840.1 1.2.461.983 [id number] Methodi 00:00:00 00:00:[address] 3.430.2.7 0.2.7.3.698 Ho spita .3.590212 084.8 l .8 2020-07-27 2020-07-27 Outpatient Carmita CH[facility] RAD [id number] [facility] 17:39:00 23:59:00 CHICO Medica [facility] 2020-07-21 2020-07-25 [facility] Steven Iniguez 1.2.840.1 [id number] Methodi 19:57:00 21:14:00 Encounter Jesus Kelly 39936.1.1 717 [facility] 3.430.2.7 H osDemian Hdz Chay .3.418898 l .8 2020-01-25 2020-07-22 Outpatient RECERTIFIC CARSON, ENCCLR ENCCLR 2 [id number] ENCCLR 00:00:00 00:00:00 ATION HUBERT 2020-07-20 2020-07-20 Transition Faraz Gonzales 1.2.840.114 [id number] Univers 00:00:00 00:00:00 of Care Ema Daniel 350.1.13.10 it y [facility] 4.2.7.2.[place] [phone] [facility] 403 Branch 2020-07-12 2020-07-19 Inpatient X CHERYL, [facility] [id number] Univers 17:05:00 20:05:00 PEYTON barrera of [facility] 2020-07-12 2020-07-19 [facility] Donald Wilson 1.2.840.1 14 [id number] Univers 17:05:00 20:05:00 Encounter Donald Wilson 350.1.13.10 kristiney [facility] 4.2.7.2.686 [place] Norberto Mckeon [id number] Medical Cheryl, Peyton [address] Jay Dee Elijah 2020-06-21 2020-06-27 [facility] Damian Castorena [facility] 1.2.840.114 [id number] Univers 13:48:00 21:40:00 Encounter Makenna Olivas 350.1.13.10 [facility] 4.2.7.2.686 [facility] [id number] [place] [address] Branch 2020-06-21 2020-06-21 Emergency X DAMIAN CASTORENA [facility] ERT [id number] Univers 13:48:00 13:48:00 ity of [facility] 2020-01-25 2020-01-25 Outpatient RECERTIFIC CARSON, ENCCLR ENCCLR [id number] ENCCLR 00:00:00 00:00:00 ATION HUBERT 2020-01-25 2020-01-25 Outpatient RECERTIFIC CARSON, ENCCLR ENCCLR 2 [id number] ENCCLR 00:00:00 00:00:00 ATION HUBERT 2020-01-06 2020-01-22 Inpatient 3 Melina, ENCPL OTH [id number] ENCPL 18:35:00 12:10:00 Malissa 0716 2019-03-09 2019-03-09 [facility] [id number] 13:30:00 13:30:00 [facility] Medicine Outpati ent Clinics 2018-12-01 2018-12-01 [facility] [id number] 13:00:00 13:00:00 [facility] Medicine l Medicine Outpati ent Clinics 2018-06-02 2018-06-02 [facility] [id number] 13:00:00 13:00:00 [facility] Medicine l Medicine Outpati ent Clinics 2018-04-02 2018-04-02 [facility] [id number] 13:00:00 13:00:[address] [facility] l Medicine Outpati ent Clinics Results Test Description Test Time Test Comments Results Result Comments Source COMP. METABOLIC PANEL (22462) 2021-06-28 16:08:49 Test Item Value Reference Range Interpretation Comme nts NA (test code = 3557851214) 133 mmol/L 135-145 L K (test code = 7579586960) 3.9 mmol/L 3.5-5.0 CL (test code = 5082527485) 101 mmol/L 98-108 CO2 TOTAL (test code = 1089264172) 26 mmol/L 23-31 AGAP (test code = 2674751958) 2-16 BUN (test code = 4778039455) 19 mg/dL 7-23 GLUCOSE (test code = 2057653161) 157 mg/dL 70-110 H CREATININE (test code = 0.68 mg/dL 0.60-1.25 5352060971) TOTAL BILI (test code = 1.0 mg/dL 0.1-1.7 2385059319) CALCIUM (test code = 4322930741) 8.7 mg/dL 8.6-10.6 T PROTEIN (test code = 9519725143) 6.6 g/dL 6.3-8.2 ALBUMIN (test code = 2244411051) 3.4 g/dL 3.5-5.0 L ALK PHOS (test code = 8939118907) 178 U/L 34-122 H ALTv (test code = 1742-6) 27 U/L 5-50 AST(SGOT) (test code = 4235723840) 32 U/L 13-40 eGFR (test code = 7738904765) mL/min/1.73m2 HAVEN (test code = HAVEN) Association of Glomerular Filtration Rate (GFR) and Staging of Kidney Disease* + +-------- + ------+| GFR (mL/min/1.73 m2) ?| With Kidney Damage ?| ?Without Kidney Damage+ +-- + +| ?>90 ?| ?Stage one ?| ? Normal ?+ +------- + -------+| ?60-89 ?| ?Stage two ?| ? Decreased GFR ? + +-------- + ------+| ?30-59 ?| ?Stage three ?| ? Stage three ? + +-------- + ------+| ?15-29 ?| ?Stage four ? | ? Stage four ?+ +------- + -------+| ?<15 (or dialysis) ? ?| ?Stage five ? | ? Stage five ?+ +------- + -------+ *Each stage assumes the associated GFR level has been in effect for at least three months. ?Stages 1 to 5, with or without kidney disease, indicate chronic kidney disease. Notes: Determination of stages one and two (with eGFR >59mL/min/1.73 m2) requires estimation of kidney damage for at least three months as defined by structural or functional abnormalities of the kidney, manifested by either:Pathological abnormalities or Markers of kidney damage (including abnormalities in the composition of the blood or urine or abnormalities in imaging tests). Lab Interpretation (test code = Abnormal 25391-0) General acute hospital WITH [id number] 15:51:06 Test Item Value Reference Range Interpretation Comments WBC (test code = See_Comment [Automated 9290-2) message] The sy stem which generated this result transmitted reference range : 4.20 - 10.70 10*3/?L. The reference range was not used to interpret this result as normal/abnormal . RBC (test code = See_Comment [Automated 009-8) message] The sy stem which generated this result transmitted reference range : 4.26 - 5.52 10*6/?L. The reference range was not used to interpret this result as normal/abnormal . HGB (test code = 13.4 g/dL 12.2-16.4 718-7) HCT (test code = 41.0 % 38.4-49.3 4544-3) MCV (test code = 83.5 fL 81.7-95.6 787-2) MCH (test code = 27.3 pg 26.1-32.7 785-6) MCHC (test code = 32.7 g/dL 31.2-35.0 786-4) RDW-SD (test code = 55.8 fL 38.5-51.6 H 92327-2) RDW-CV (test code = 18.8 % 12.1-15.4 H 788-0) PLT (test code = See_Comment [Automated 7-3) message] The sy stem which generated this result transmitted reference range : 150 - 328 10*3/ ?L. The reference r fernando was not used to interpret this result as normal/abnormal . MPV (test code = 8.3 fL 9.8-13.0 L 08314-8) NRBC/100 WBC (test See_Comment [Automat ed code = 4818093142) message] The system which generated this result transmitted reference range : 0.0 - 10.0 /100 WBCs. The refer ence range was not u sed to interpret th is result as normal/abnormal . NRBC x10^3 (test code <0.01 See_Comment [Auto mated = 1709270319) message] The s ystem which generated this result transmitted reference range : 10*3/?L. The reference range was not used to interpret this result as normal/abnormal . GRAN MAT (NEUT) % 72.2 % (test code = 770-8) IMM GRAN % (test code 1.50 % = 1660114755) LYMPH % (test code = 18.0 % 736-9) MONO % (test code = 6.1 % 5905-5) EOS % (test code = 1.5 % 713-8) BASO % (test code = 0.7 % 706-2) GRAN MAT x10^3(ANC) 5.28 10*3/uL 1.99-6.95 (test code = 3978313911) IMM GRAN x10^3 (test 0.11 10*3/uL 0.00-0.06 H code = 1254792530) LYMPH x10^3 (test code 1.32 10*3/uL 1.09-3.23 = 731-0) MONO x10^3 (test code 0.45 10*3/uL 0.36-1.02 = 742-7) EOS x10^3 (test code = 0.11 10*3/uL 0.06-0.53 711-2) BASO x10^3 (test code 0.05 10*3/uL 0.01-0.09 = 704-7) Lab Interpretation Abnormal (test code = 79434-8) [facility] METABOLIC PANEL (NA, K, CL, CO2, GLUCOSE, BUN, CREATININE, CA)2021-05-23 12:26:40 Test Item Value Reference Range Interpretation Comments NA (test code = 134 mmol/L 135-145 L 3325246423) K (test code = 4.2 mmol/L 3.5-5.0 3341446881) CL (test code = 104 mmol/L 98-108 8322061002) CO2 TOTAL (test code = 26 mmol/L 23-31 6949120846) AGAP (test code = 2-16 7054554961) BUN (test code = 24 mg/dL 7-23 H 4147614027) GLUCOSE (test code = 99 mg/dL 70-110 8542043317) CREATININE (test code = 0.52 mg/dL 0.60-1.25 L 0855581572) CALCIUM (test code = 8.8 mg/dL 8.6-10.6 5886299318) eGFR (test code = mL/min/1.73m2 7057529217) HAVEN (test code = HAVEN) Association of Glomerular Filtration Rate (GFR) and Staging of Kidney Disease* + --+ --+ ------+| GFR (mL/min/1.73 m2) ?| With Kidney Damage ?| ?Without Kidney Damage+ --------+ --------+ +| ?>90 ?| ?Stage one ?| ? Normal ?+ ---+ ---+ -------+| ?60-89 ?| ?Stage two ?| ? Decreased GFR ? + --+ --+ ------+| ?30-59 ?| ?Stage three ?| ? Stage three ? + --+ --+ ------+| ?15-29 ?| ?Stage four ? | ? Stage four ?+ ---+ ---+ -------+| ?<15 (or dialysis) ? ?| ?Stage five ? | ? Stage five ?+ ---+ ---+ -------+ *Each stage assumes the associated GFR level has been in effect for at least three months. ?Stages 1 to 5, with or without kidney disease, indicate chronic kidney disease. Notes: Determination of stages one and two (with eGFR >59mL/min/1.73 m2) requires estimation of kidney damage for at least three months as defined by structural or functional abnormalities of the kidney, manifested by either:Pathological abnormalities or Markers of kidney damage (including abnormalities in the composition of the blood or urine or abnormalities in imaging tests). Lab Interpretation Abnormal (test code = 08194-8) General acute hospital WITH [id number] 11:46:55 Test Item Value Reference Range Interpretation Comments WBC (test code = See_Comment [Automated 6690-2) message] The sy stem which generated this result transmitted reference range : 4.20 - 10.70 10*3/?L. The reference range was not used to interpret this result as normal/abnormal . RBC (test code = See_Comment [Automated 789-8) message] The sy stem which generated this result transmitted reference range : 4.26 - 5.52 10*6/?L. The reference range was not used to interpret this result as normal/abnormal . HGB (test code = 12.8 g/dL 12.2-16.4 718-7) HCT (test code = 40.2 % 38.4-49.3 4544-3) MCV (test code = 82.0 fL 81.7-95.6 787-2) MCH (test code = 26.1 pg 26.1-32.7 785-6) MCHC (test code = 31.8 g/dL 31.2-35.0 786-4) RDW-SD (test code = 48.4 fL 38.5-51.6 11951-2) RDW-CV (test code = 16.8 % 12.1-15.4 H 788-0) PLT (test code = See_Comment L [Automated 777-3) message] The sy stem which generated this result transmitted reference range : 150 - 328 10*3/ ?L. The reference r fernando was not used to interpret this result as normal/abnormal . MPV (test code = 8.3 fL 9.8-13.0 L 09774-9) NRBC/100 WBC (test See_Comment [Automat ed code = 7310124972) message] The system which generated this result transmitted reference range : 0.0 - 10.0 /100 WBCs. The refer ence range was not u sed to interpret th is result as normal/abnormal . NRBC x10^3 (test code <0.01 See_Comment [Auto mated = 3362985477) message] The s [employer]ste[employer]box which generated this result transmitted reference range : 10*3/?L. The reference range was not used to interpret this result as normal/abnormal . GRAN MAT (NEUT) % 63.2 % (test code = 770-8) IMM GRAN % (test code 0.70 % = 7226345208) LYMPH % (test code = 23.8 % 736-9) MONO % (test code = 7.7 % 5905-5) EOS % (test code = 3.9 % 713-8) BASO % (test code = 0.7 % 706-2) GRAN MAT x10^3(ANC) 3.84 10*3/uL 1.99-6.95 (test code = [id number]) IMM GRAN x10^3 (test 0.04 10*3/uL 0.00-0.06 code = [id number]) LYMPH x10^3 (test code 1.45 10*3/uL 1.09-3.23 = 731-0) MONO x10^3 (test code 0.47 10*3/uL 0.36-1.02 = 742-7) EOS x10^3 (test code = 0.24 10*3/uL 0.06-0.53 711-2) BASO x10^3 (test code 0.04 10*3/uL 0.01-0.09 = 704-7) Lab Interpretation Abnormal (test code = 44704-9) [facility] METABOLIC PANEL (NA, K, CL, CO2, GLUCOSE, BUN, CREATININE, CA)2021-05-21 12:53:06 Test Item Value Reference Range Interpretation Comments NA (test code = 133 mmol/L 135-145 L [id number]) K (test code = 4.4 mmol/L 3.5-5.0 [id number]) CL (test code = 102 mmol/L 98-108 0451718040) CO2 TOTAL (test code = 26 mmol/L 23-31 [id number]) AGAP (test code = 2-16 6835691681) BUN (test code = 23 mg/dL 7-23 9304664561) GLUCOSE (test code = 97 mg/dL 70-110 3809070709) CREATININE (test code = 0.57 mg/dL 0.60-1.25 L 3381104261) CALCIUM (test code = 8.9 mg/dL 8.6-10.6 0439894601) eGFR (test code = mL/min/1.73m2 5914013436) HAVEN (test code = HAVEN) Association of Glomerular Filtration Rate (GFR) and Staging of Kidney Disease* + --+ --+ ------+| GFR (mL/min/1.73 m2) ?| With Kidney Damage ?| ?Without Kidney Damage+ --------+ --------+ +| ?>90 ?| ?Stage one ?| ? Normal ?+ ---+ ---+ -------+| ?60-89 ?| ?Stage two ?| ? Decreased GFR ? + --+ --+ ------+| ?30-59 ?| ?Stage three ?| ? Stage three ? + --+ --+ ------+| ?15-29 ?| ?Stage four ? | ? Stage four ?+ ---+ ---+ -------+| ?<15 (or dialysis) ? ?| ?Stage five ? | ? Stage five ?+ ---+ ---+ -------+ *Each stage assumes the associated GFR level has been in effect for at least three months. ?Stages 1 to 5, with or without kidney disease, indicate chronic kidney disease. Notes: Determination of stages one and two (with eGFR >59mL/min/1.73 m2) requires estimation of kidney damage for at least three months as defined by structural or functional abnormalities of the kidney, manifested by either:Pathological abnormalities or Markers of kidney damage (including abnormalities in the composition of the blood or urine or abnormalities in imaging tests). Lab Interpretation Abnormal (test code = 23757-7) [facility] WITH [id number] 12:25:05 Test Item Value Reference Range Interpretation Comments WBC (test code = See_Comment [Automated 1679-2) message] The sy stem which generated this result transmitted reference range : 4.20 - 10.70 10*3/?L. The reference range was not used to interpret this result as normal/abnormal . RBC (test code = See_Comment [Automated 408-8) message] The sy stem which generated this result transmitted reference range : 4.26 - 5.52 10*6/?L. The reference range was not used to interpret this result as normal/abnormal . HGB (test code = 13.0 g/dL 12.2-16.4 718-7) HCT (test code = 41.1 % 38.4-49.3 4544-3) MCV (test code = 82.2 fL 81.7-95.6 787-2) MCH (test code = 26.0 pg 26.1-32.7 L 785-6) MCHC (test code = 31.6 g/dL 31.2-35.0 786-4) RDW-SD (test code = 48.4 fL 38.5-51.6 16347-4) RDW-CV (test code = 16.6 % 12.1-15.4 H 788-0) PLT (test code = See_Comment L [Automated 777-3) message] The sy stem which generated this result transmitted reference range : 150 - 328 10*3/ ?L. The reference r fernando was not used to interpret this result as normal/abnormal . MPV (test code = 8.7 fL 9.8-13.0 L 74798-8) NRBC/100 WBC (test See_Comment [Automat ed code = 6618876343) message] The system which generated this result transmitted reference range : 0.0 - 10.0 /100 WBCs. The refer ence range was not u sed to interpret th is result as normal/abnormal . NRBC x10^3 (test code <0.01 See_Comment [Auto mated = 7707689135) message] The s ystem which generated this result transmitted reference range : 10*3/?L. The reference range was not used to interpret this result as normal/abnormal . GRAN MAT (NEUT) % 60.5 % (test code = 770-8) IMM GRAN % (test code 0.80 % = 8562966814) LYMPH % (test code = 25.7 % 736-9) MONO % (test code = 8.1 % 5905-5) EOS % (test code = 4.3 % 713-8) BASO % (test code = 0.6 % 706-2) GRAN MAT x10^3(ANC) 3.98 10*3/uL 1.99-6.95 (test code = 6867908006) IMM GRAN x10^3 (test 0.05 10*3/uL 0.00-0.06 code = 0908320796) LYMPH x10^3 (test code 1.69 10*3/uL 1.09-3.23 = 731-0) MONO x10^3 (test code 0.53 10*3/uL 0.36-1.02 = 742-7) EOS x10^3 (test code = 0.28 10*3/uL 0.06-0.53 711-2) BASO x10^3 (test code 0.04 10*3/uL 0.01-0.09 = 704-7) Lab Interpretation Abnormal (test code = 94440-0) [facility] Metabolic Panel (NA, K, CL, CO2, GLUCOSE, BUN, CREATININE, CA)2021-05-20 13:07:41 Test Item Value Reference Range Interpretation Comments NA (test code = 134 mmol/L 135-145 L 8860237141) K (test code = 4.3 mmol/L 3.5-5.0 6444895443) CL (test code = 102 mmol/L 98-108 3538235445) CO2 TOTAL (test code = 27 mmol/L 23-31 7845433044) AGAP (test code = 2-16 2689541827) BUN (test code = 21 mg/dL 7-23 0511697355) GLUCOSE (test code = 95 mg/dL 70-110 5663850983) CREATININE (test code = 0.61 mg/dL 0.60-1.25 6671819305) CALCIUM (test code = 8.9 mg/dL 8.6-10.6 3722067760) eGFR (test code = mL/min/1.73m2 7511377931) HAVEN (test code = HAVEN) Association of Glomerular Filtration Rate (GFR) and Staging of Kidney Disease* + --+ --+ ------+| GFR (mL/min/1.73 m2) ?| With Kidney Damage ?| ?Without Kidney Damage+ --------+ --------+ +| ?>90 ?| ?Stage one ?| ? Normal ?+ ---+ ---+ -------+| ?60-89 ?| ?Stage two ?| ? Decreased GFR ? + --+ --+ ------+| ?30-59 ?| ?Stage three ?| ? Stage three ? + --+ --+ ------+| ?15-29 ?| ?Stage four ? | ? Stage four ?+ ---+ ---+ -------+| ?<15 (or dialysis) ? ?| ?Stage five ? | ? Stage five ?+ ---+ ---+ -------+ *Each stage assumes the associated GFR level has been in effect for at least three months. ?Stages 1 to 5, with or without kidney disease, indicate chronic kidney disease. Notes: Determination of stages one and two (with eGFR >59mL/min/1.73 m2) requires estimation of kidney damage for at least three months as defined by structural or functional abnormalities of the kidney, manifested by either:Pathological abnormalities or Markers of kidney damage (including abnormalities in the composition of the blood or urine or abnormalities in imaging tests). Lab Interpretation Abnormal (test code = 14786-5) [facility] acute hospital with [id number] 12:17:40 Test Item Value Reference Range Interpretation Comments WBC (test code = See_Comment [Automated 6490-2) message] The sy stem which generated this result transmitted reference range : 4.20 - 10.70 10*3/?L. The reference range was not used to interpret this result as normal/abnormal . RBC (test code = See_Comment [Automated 633-8) message] The sy stem which generated this result transmitted reference range : 4.26 - 5.52 10*6/?L. The reference range was not used to interpret this result as normal/abnormal . HGB (test code = 13.0 g/dL 12.2-16.4 718-7) HCT (test code = 41.2 % 38.4-49.3 4544-3) MCV (test code = 82.2 fL 81.7-95.6 787-2) MCH (test code = 25.9 pg 26.1-32.7 L 785-6) MCHC (test code = 31.6 g/dL 31.2-35.0 786-4) RDW-SD (test code = 46.6 fL 38.5-51.6 59302-3) RDW-CV (test code = 16.2 % 12.1-15.4 H 788-0) PLT (test code = See_Comment [Automated 777-3) message] The sy stem which generated this result transmitted reference range : 150 - 328 10*3/ ?L. The reference r fernando was not used to interpret this result as normal/abnormal . MPV (test code = 8.9 fL 9.8-13.0 L 49336-8) NRBC/100 WBC (test See_Comment [Automat ed code = 0219825263) message] The system which generated this result transmitted reference range : 0.0 - 10.0 /100 WBCs. The refer ence range was not u sed to interpret th is result as normal/abnormal . NRBC x10^3 (test code <0.01 See_Comment [Auto mated = 6568354059) message] The s ystem which generated this result transmitted reference range : 10*3/?L. The reference range was not used to interpret this result as normal/abnormal . GRAN MAT (NEUT) % 64.8 % (test code = 770-8) IMM GRAN % (test code 0.60 % = 8754856417) LYMPH % (test code = 23.5 % 736-9) MONO % (test code = 7.3 % 5905-5) EOS % (test code = 3.2 % 713-8) BASO % (test code = 0.6 % 706-2) GRAN MAT x10^3(ANC) 4.08 10*3/uL 1.99-6.95 (test code = 8805931150) IMM GRAN x10^3 (test 0.04 10*3/uL 0.00-0.06 code = 7041575998) LYMPH x10^3 (test code 1.48 10*3/uL 1.09-3.23 = 731-0) MONO x10^3 (test code 0.46 10*3/uL 0.36-1.02 = 742-7) EOS x10^3 (test code = 0.20 10*3/uL 0.06-0.53 711-2) BASO x10^3 (test code 0.04 10*3/uL 0.01-0.09 = 704-7) Lab Interpretation Abnormal (test code = 26667-6) [id number]21-[facility]-19 22:15:02 Test Item Value Reference Range Interpretation Comments NA (test code = 134 mmol/L 135-145 L 5291753276) K (test code = 3.9 mmol/L 3.5-5.0 0876814421) CL (test code = 100 mmol/L 98-108 3878639320) CO2 TOTAL (test code = 27 mmol/L 23-31 4687350399) AGAP (test code = 2-16 0944535334) BUN (test code = 19 mg/dL 7-23 2078863197) GLUCOSE (test code = 132 mg/dL 70-110 H 2808616817) CREATININE (test code = 0.62 mg/dL 0.60-1.25 1565608827) TOTAL BILI (test code = 0.8 mg/dL 0.1-1.0 5084024745) CALCIUM (test code = 9.1 mg/dL 8.6-10.6 0481716136) T PROTEIN (test code = 6.4 g/dL 6.3-8.2 6241076224) ALBUMIN (test code = 3.6 g/dL 3.5-5.0 2442706530) ALK PHOS (test code = 109 U/L 34-122 0108652403) ALTv (test code = 25 U/L 5-50 1742-6) AST(SGOT) (test code = 32 U/L 13-40 0284124581) eGFR (test code = mL/min/1.73m2 8115750944) HAVEN (test code = HAVEN) Association of Glomerular Filtration Rate (GFR) and Staging of Kidney Disease* + --+ --+ ------+| GFR (mL/min/1.73 m2) ?| With Kidney Damage ?| ?Without Kidney Damage+ --------+ --------+ +| ?>90 ?| ?Stage one ?| ? Normal ?+ ---+ ---+ -------+| ?60-89 ?| ?Stage two ?| ? Decreased GFR ? + --+ --+ ------+| ?30-59 ?| ?Stage three ?| ? Stage three ? + --+ --+ ------+| ?15-29 ?| ?Stage four ? | ? Stage four ?+ ---+ ---+ -------+| ?<15 (or dialysis) ? ?| ?Stage five ? | ? Stage five ?+ ---+ ---+ -------+ *Each stage assumes the associated GFR level has been in effect for at least three months. ?Stages 1 to 5, with or without kidney disease, indicate chronic kidney disease. Notes: Determination of stages one and two (with eGFR >59mL/min/1.73 m2) requires estimation of kidney damage for at least three months as defined by structural or functional abnormalities of the kidney, manifested by either:Pathological abnormalities or Markers of kidney damage (including abnormalities in the composition of the blood or urine or abnormalities in imaging tests). Lab Interpretation Abnormal (test code = 86276-8) [facility] acute hospital WITH [id number] 21:47:18 Test Item Value Reference Range Interpretation Comments WBC (test code = See_Comment [Automated 7388-2) message] The sy stem which generated this result transmitted reference range : 4.20 - 10.70 10*3/?L. The reference range was not used to interpret this result as normal/abnormal . RBC (test code = See_Comment [Automated 899-8) message] The sy stem which generated this result transmitted reference range : 4.26 - 5.52 10*6/?L. The reference range was not used to interpret this result as normal/abnormal . HGB (test code = 13.5 g/dL 12.2-16.4 718-7) HCT (test code = 44.0 % 38.4-49.3 4544-3) MCV (test code = 83.2 fL 81.7-95.6 787-2) MCH (test code = 25.5 pg 26.1-32.7 L 785-6) MCHC (test code = 30.7 g/dL 31.2-35.0 L 786-4) RDW-SD (test code = 47.0 fL 38.5-51.6 59984-5) RDW-CV (test code = 16.1 % 12.1-15.4 H 788-0) PLT (test code = See_Comment [Automated 517-3) message] The sy stem which generated this result transmitted reference range : 150 - 328 10*3/ ?L. The reference r fernando was not used to interpret this result as normal/abnormal . MPV (test code = 8.5 fL 9.8-13.0 L 55705-2) NRBC/100 WBC (test See_Comment [Automat ed code = 9388923823) message] The system which generated this result transmitted reference range : 0.0 - 10.0 /100 WBCs. The refer ence range was not u sed to interpret th is result as normal/abnormal . NRBC x10^3 (test code <0.01 See_Comment [Auto mated = 4650945898) message] The s ystem which generated this result transmitted reference range : 10*3/?L. The reference range was not used to interpret this result as normal/abnormal . GRAN MAT (NEUT) % 73.7 % (test code = 770-8) IMM GRAN % (test code 0.60 % = 8828474001) LYMPH % (test code = 16.3 % 736-9) MONO % (test code = 6.2 % 5905-5) EOS % (test code = 2.6 % 713-8) BASO % (test code = 0.6 % 706-2) GRAN MAT x10^3(ANC) 5.70 10*3/uL 1.99-6.95 (test code = 1578766557) IMM GRAN x10^3 (test 0.05 10*3/uL 0.00-0.06 code = 4350601618) LYMPH x10^3 (test code 1.26 10*3/uL 1.09-3.23 = 731-0) MONO x10^3 (test code 0.48 10*3/uL 0.36-1.02 = 742-7) EOS x10^3 (test code = 0.20 10*3/uL 0.06-0.53 711-2) BASO x10^3 (test code 0.05 10*3/uL 0.01-0.09 = 704-7) Lab Interpretation Abnormal (test code = 49417-7) [facility] [id number] 21:17:28 Test Item Value Reference Range Interpretation Comments IRON (test code = 8814509475) 22 ug/dL 50-160 L TIBC (test code = 7262626313) 272 ug/dL 250-410 % FE SAT (test code = 2054650389) 8 % 20-50 L Lab Interpretation (test code = Abnormal 60501-7) [facility] [id number] 16:57:37 Test Item Value Reference Range Interpretation Comments FERRITIN (test code = 58.1 ng/mL 18.0-464.0 8340288105) HAVEN (test code = HAVEN) Biotin has been reported to cause a negative bias, interpret results relative to patient's use of biotin. Lab Interpretation (test Normal code = 50556-7) [facility] (NA, K, CL, CO2, GLUCOSE, BUN, CREATININE, CA)2021-02-05 10:07:46 Test Item Value Reference Range Interpretation Comments NA (test code = 133 mmol/L 135-145 L 6683370159) K (test code = 3.7 mmol/L 3.5-5.0 6419901453) CL (test code = 101 mmol/L 98-108 8226472165) CO2 TOTAL (test code = 30 mmol/L 23-31 8752022018) AGAP (test code = 2-16 8429717883) BUN (test code = 13 mg/dL 7-23 2147625578) GLUCOSE (test code = 119 mg/dL 70-110 H 7199514118) CREATININE (test code = 0.68 mg/dL 0.60-1.25 9277049879) CALCIUM (test code = 8.1 mg/dL 8.6-10.6 L 7606949493) eGFR (test code = mL/min/1.73m2 9636777306) HAVEN (test code = HAVEN) Association of Glomerular Filtration Rate (GFR) and Staging of Kidney Disease* + --+ --+ ------+| GFR (mL/min/1.73 m2) ?| With Kidney Damage ?| ?Without Kidney Damage+ --------+ --------+ +| ?>90 ?| ?Stage one ?| ? Normal ?+ ---+ ---+ -------+| ?60-89 ?| ?Stage two ?| ? Decreased GFR ? + --+ --+ ------+| ?30-59 ?| ?Stage three ?| ? Stage three ? + --+ --+ ------+| ?15-29 ?| ?Stage four ? | ? Stage four ?+ ---+ ---+ -------+| ?<15 (or dialysis) ? ?| ?Stage five ? | ? Stage five ?+ ---+ ---+ -------+ *Each stage assumes the associated GFR level has been in effect for at least three months. ?Stages 1 to 5, with or without kidney disease, indicate chronic kidney disease. Notes: Determination of stages one and two (with eGFR >59mL/min/1.73 m2) requires estimation of kidney damage for at least three months as defined by structural or functional abnormalities of the kidney, manifested by either:Pathological abnormalities or Markers of kidney damage (including abnormalities in the composition of the blood or urine or abnormalities in imaging tests). Lab Interpretation Abnormal (test code = 15788-6) [facility] 10:07:46 Test Item Value Reference Range Interpretation Comments MAGNESIUM (test code = 3763786694) 1.5 mg/dL 1.7-2.4 L Lab Interpretation (test code = Abnormal 21930-6) [facility] WITHOUT [id number] 09:51:43 Test Item Value Reference Range Interpretation Comments WBC (test code = 6690-2) See_Comment [A utomated message] The system [employer] generated this result transmit josé antonio reference range : 4.20 - 10.70 10*3/?L. The reference range was not used to interpret this result as normal/abnormal . RBC (test code = 789-8) See_Comment L [Au tomated message] The system [employer] generated this result transmit josé antonio reference range : 4.26 - 5.52 10* 6/?L. The reference r fernando was not used to interpret this result as normal/abnormal . HGB (test code = 718-7) 8.3 g/dL 12.2-16.4 L HCT (test code = 4544-3) 27.5 % 38.4-49.3 L MCH (test code = 785-6) 24.9 pg 26.1-32.7 L MCV (test code = 787-2) 82.3 fL 81.7-95.6 MCHC (test code = 786-4) 30.2 g/dL 31.2-35.0 L PLT (test code = 777-3) See_Comment [Au tomated message] The system [employer] generated this result transmit josé antonio reference range : 150 - 328 10*3/?L. The reference range was not used to interpret this result as normal/abnormal . MPV (test code = 8.9 fL 9.8-13.0 L 14075-0) RDW-CV (test code = 18.8 % 12.1-15.4 H 788-0) RDW-SD (test code = 56.2 fL 38.5-51.6 H 93579-1) NRBC x10^3 (test code = <0.01 See_Comment [Au tomated message] 7045996550) The system [employer] generated this result transmit josé antonio reference range : 10*3/?L. The reference range was not used to interpret this result as normal/abnormal . NRBC/100 WBC (test code See_Comment [Au tomated message] = 4646906880) The system [employer] generated this result transmit josé antonio reference range : 0.0 - 10.0 /100 WBC s. The reference r fernando was not used to interpret this result as normal/abnormal . IPF % (test code = 3323617531) Lab Interpretation (test Abnormal code = 60287-3) [facility] METABOLIC PANEL (NA, K, CL, CO2, GLUCOSE, BUN, CREATININE, CA)2021-02-04 09:53:14 Test Item Value Reference Range Interpretation Comments NA (test code = 134 mmol/L 135-145 L 7272724152) K (test code = 3.7 mmol/L 3.5-5.0 8005875536) CL (test code = 100 mmol/L 98-108 2861407679) CO2 TOTAL (test code = 32 mmol/L 23-31 H 8772597700) AGAP (test code = 2-16 2432050822) BUN (test code = 14 mg/dL 7-23 3471201181) GLUCOSE (test code = 100 mg/dL 70-110 6323311613) CREATININE (test code = 0.65 mg/dL 0.60-1.25 4659805619) CALCIUM (test code = 8.3 mg/dL 8.6-10.6 L 0382199326) eGFR (test code = mL/min/1.73m2 3693337290) HAVEN (test code = HAVEN) Association of Glomerular Filtration Rate (GFR) and Staging of Kidney Disease* + --+ --+ ------+| GFR (mL/min/1.73 m2) ?| With Kidney Damage ?| ?Without Kidney Damage+ --------+ --------+ +| ?>90 ?| ?Stage one ?| ? Normal ?+ ---+ ---+ -------+| ?60-89 ?| ?Stage two ?| ? Decreased GFR ? + --+ --+ ------+| ?30-59 ?| ?Stage three ?| ? Stage three ? + --+ --+ ------+| ?15-29 ?| ?Stage four ? | ? Stage four ?+ ---+ ---+ -------+| ?<15 (or dialysis) ? ?| ?Stage five ? | ? Stage five ?+ ---+ ---+ -------+ *Each stage assumes the associated GFR level has been in effect for at least three months. ?Stages 1 to 5, with or without kidney disease, indicate chronic kidney disease. Notes: Determination of stages one and two (with eGFR >59mL/min/1.73 m2) requires estimation of kidney damage for at least three months as defined by structural or functional abnormalities of the kidney, manifested by either:Pathological abnormalities or Markers of kidney damage (including abnormalities in the composition of the blood or urine or abnormalities in imaging tests). Lab Interpretation Abnormal (test code = 95849-9) [facility] 09:53:14 Test Item Value Reference Range Interpretation Comments MAGNESIUM (test code = 7871002700) 1.8 mg/dL 1.7-2.4 Lab Interpretation (test code = Normal 53346-9) [facility] WITHOUT [id number] 09:27:28 Test Item Value Reference Range Interpretation Comments WBC (test code = 6690-2) See_Comment [A utomated message] The system [employer] generated this result transmit josé antonio reference range : 4.20 - 10.70 10*3/?L. The reference range was not used to interpret this result as normal/abnormal . RBC (test code = 789-8) See_Comment L [Au tomated message] The system [facility] generated this result transmit josé antonio reference range : 4.26 - 5.52 10* 6/?L. The reference r fernando was not used to interpret this result as normal/abnormal . HGB (test code = 718-7) 10.0 g/dL 12.2-16.4 L HCT (test code = 4544-3) 32.0 % 38.4-49.3 L MCH (test code = 785-6) 25.8 pg 26.1-32.7 L MCV (test code = 787-2) 82.5 fL 81.7-95.6 MCHC (test code = 786-4) 31.3 g/dL 31.2-35.0 PLT (test code = 777-3) See_Comment [Au tomated message] The system [facility] generated this result transmit josé antonio reference range : 150 - 328 10*3/?L. The reference range was not used to interpret this result as normal/abnormal . MPV (test code = 8.9 fL 9.8-13.0 L 33649-7) RDW-CV (test code = 18.9 % 12.1-15.4 H 788-0) RDW-SD (test code = 57.0 fL 38.5-51.6 H 80852-9) NRBC x10^3 (test code = <0.01 See_Comment [Au tomated message] 2569722036) The system [facility] generated this result transmit josé antonio reference range : 10*3/?L. The reference range was not used to interpret this result as normal/abnormal . NRBC/100 WBC (test code See_Comment [Au tomated message] = 1499057527) The system [facility] generated this result transmit josé antonio reference range : 0.0 - 10.0 /100 WBC s. The reference r fernando was not used to interpret this result as normal/abnormal . IPF % (test code = 9718595627) Lab Interpretation (test Abnormal code = 70326-8) [facility] METABOLIC PANEL (NA, K, CL, CO2, GLUCOSE, BUN, CREATININE, CA)2021-02-03 10:25:20 Test Item Value Reference Range Interpretation Comments NA (test code = 132 mmol/L 135-145 L 3407607168) K (test code = 3.8 mmol/L 3.5-5.0 2864803957) CL (test code = 98 mmol/L 98-108 1650068239) CO2 TOTAL (test code = 34 mmol/L 23-31 H 6773774211) AGAP (test code = <1 2-16 L 9300920029) BUN (test code = 19 mg/dL 7-23 9263997443) GLUCOSE (test code = 103 mg/dL 70-110 8653816404) CREATININE (test code = 0.66 mg/dL 0.60-1.25 8633794887) CALCIUM (test code = 8.0 mg/dL 8.6-10.6 L 1284839412) eGFR (test code = mL/min/1.73m2 5380231184) HAVEN (test code = HAVEN) Association of Glomerular Filtration Rate (GFR) and Staging of Kidney Disease* + --+ --+ ------+| GFR (mL/min/1.73 m2) ?| With Kidney Damage ?| ?Without Kidney Damage+ --------+ --------+ +| ?>90 ?| ?Stage one ?| ? Normal ?+ ---+ ---+ -------+| ?60-89 ?| ?Stage two ?| ? Decreased GFR ? + --+ --+ ------+| ?30-59 ?| ?Stage three ?| ? Stage three ? + --+ --+ ------+| ?15-29 ?| ?Stage four ? | ? Stage four ?+ ---+ ---+ -------+| ?<15 (or dialysis) ? ?| ?Stage five ? | ? Stage five ?+ ---+ ---+ -------+ *Each stage assumes the associated GFR level has been in effect for at least three months. ?Stages 1 to 5, with or without kidney disease, indicate chronic kidney disease. Notes: Determination of stages one and two (with eGFR >59mL/min/1.73 m2) requires estimation of kidney damage for at least three months as defined by structural or functional abnormalities of the kidney, manifested by either:Pathological abnormalities or Markers of kidney damage (including abnormalities in the composition of the blood or urine or abnormalities in imaging tests). Lab Interpretation Abnormal (test code = 37291-3) [facility] 10:23:38 Test Item Value Reference Range Interpretation Comments MAGNESIUM (test code = 5433114638) 1.8 mg/dL 1.7-2.4 Lab Interpretation (test code = Normal 03369-2) [facility] WITH [id number] 10:06:59 Test Item Value Reference Range Interpretation Comments WBC (test code = See_Comment [Automated 6690-2) message] The sy stem which generated this result transmitted reference range : 4.20 - 10.70 10*3/?L. The reference range was not used to interpret this result as normal/abnormal . RBC (test code = See_Comment L [Automated 789-8) message] The sy stem which generated this result transmitted reference range : 4.26 - 5.52 10*6/?L. The reference range was not used to interpret this result as normal/abnormal . HGB (test code = 8.9 g/dL 12.2-16.4 L 718-7) HCT (test code = 28.2 % 38.4-49.3 L 4544-3) MCV (test code = 81.7 fL 81.7-95.6 787-2) MCH (test code = 25.8 pg 26.1-32.7 L 785-6) MCHC (test code = 31.6 g/dL 31.2-35.0 786-4) RDW-SD (test code = 55.8 fL 38.5-51.6 H 82590-8) RDW-CV (test code = 18.8 % 12.1-15.4 H 788-0) PLT (test code = See_Comment [Automated 777-3) message] The sy stem which generated this result transmitted reference range : 150 - 328 10*3/ ?L. The reference r fernando was not used to interpret this result as normal/abnormal . MPV (test code = 8.8 fL 9.8-13.0 L 91489-5) NRBC/100 WBC (test See_Comment [Automat ed code = 7539577816) message] The system which generated this result transmitted reference range : 0.0 - 10.0 /100 WBCs. The refer ence range was not u sed to interpret th is result as normal/abnormal . NRBC x10^3 (test code <0.01 See_Comment [Auto mated = 2225174686) message] The s ystem which generated this result transmitted reference range : 10*3/?L. The reference range was not used to interpret this result as normal/abnormal . GRAN MAT (NEUT) % 59.6 % (test code = 770-8) IMM GRAN % (test code 2.10 % = 2447714078) LYMPH % (test code = 25.0 % 736-9) MONO % (test code = 9.4 % 5905-5) EOS % (test code = 3.1 % 713-8) BASO % (test code = 0.8 % 706-2) GRAN MAT x10^3(ANC) 3.11 10*3/uL 1.99-6.95 (test code = 7147729389) IMM GRAN x10^3 (test 0.11 10*3/uL 0.00-0.06 H code = 2417204111) LYMPH x10^3 (test code 1.30 10*3/uL 1.09-3.23 = 731-0) MONO x10^3 (test code 0.49 10*3/uL 0.36-1.02 = 742-7) EOS x10^3 (test code = 0.16 10*3/uL 0.06-0.53 711-2) BASO x10^3 (test code 0.04 10*3/uL 0.01-0.09 = 704-7) Lab Interpretation Abnormal (test code = 27310-1) [facility] METABOLIC PANEL (NA, K, CL, CO2, GLUCOSE, BUN, CREATININE, CA)2021-02-02 09:53:43 Test Item Value Reference Range Interpretation Comments NA (test code = 135 mmol/L 135-145 1486935778) K (test code = 4.1 mmol/L 3.5-5.0 6303157031) CL (test code = 99 mmol/L 98-108 9932876972) CO2 TOTAL (test code = 34 mmol/L 23-31 H 7101121999) AGAP (test code = 2-16 5799604105) BUN (test code = 21 mg/dL 7-23 4214339493) GLUCOSE (test code = 119 mg/dL 70-110 H 9982239461) CREATININE (test code = 0.76 mg/dL 0.60-1.25 4313748093) CALCIUM (test code = 7.8 mg/dL 8.6-10.6 L 4374137910) eGFR (test code = mL/min/1.73m2 8211172711) HAVEN (test code = HAVEN) Association of Glomerular Filtration Rate (GFR) and Staging of Kidney Disease* + --+ --+ ------+| GFR (mL/min/1.73 m2) ?| With Kidney Damage ?| ?Without Kidney Damage+ --------+ --------+ +| ?>90 ?| ?Stage one ?| ? Normal ?+ ---+ ---+ -------+| ?60-89 ?| ?Stage two ?| ? Decreased GFR ? + --+ --+ ------+| ?30-59 ?| ?Stage three ?| ? Stage three ? + --+ --+ ------+| ?15-29 ?| ?Stage four ? | ? Stage four ?+ ---+ ---+ -------+| ?<15 (or dialysis) ? ?| ?Stage five ? | ? Stage five ?+ ---+ ---+ -------+ *Each stage assumes the associated GFR level has been in effect for at least three months. ?Stages 1 to 5, with or without kidney disease, indicate chronic kidney disease. Notes: Determination of stages one and two (with eGFR >59mL/min/1.73 m2) requires estimation of kidney damage for at least three months as defined by structural or functional abnormalities of the kidney, manifested by either:Pathological abnormalities or Markers of kidney damage (including abnormalities in the composition of the blood or urine or abnormalities in imaging tests). Lab Interpretation Abnormal (test code = 92768-2) [facility] Test Item Value Reference Range Interpretation Comments MAGNESIUM (test code = 9100367297) 2.5 mg/dL 1.7-2.4 H Lab Interpretation (test code = Abnormal 47378-9) [facility] acute [facility] WITH [id number] 09:32:23 Test Item Value Reference Range Interpretation Comments WBC (test code = See_Comment [Automated 6690-2) message] The sy stem which generated this result transmitted reference range : 4.20 - 10.70 10*3/?L. The reference range was not used to interpret this result as normal/abnormal . RBC (test code = See_Comment L [Automated 789-8) message] The sy stem which generated this result transmitted reference range : 4.26 - 5.52 10*6/?L. The reference range was not used to interpret this result as normal/abnormal . HGB (test code = 9.3 g/dL 12.2-16.4 L 718-7) HCT (test code = 31.2 % 38.4-49.3 L 4544-3) MCV (test code = 83.4 fL 81.7-95.6 787-2) MCH (test code = 24.9 pg 26.1-32.7 L 785-6) MCHC (test code = 29.8 g/dL 31.2-35.0 L 786-4) RDW-SD (test code = 56.8 fL 38.5-51.6 H 39529-4) RDW-CV (test code = 18.9 % 12.1-15.4 H 788-0) PLT (test code = See_Comment [Automated 777-3) message] The sy stem which generated this result transmitted reference range : 150 - 328 10*3/ ?L. The reference r fernando was not used to interpret this result as normal/abnormal . MPV (test code = 9.1 fL 9.8-13.0 L 27784-1) NRBC/100 WBC (test See_Comment [Automat ed code = 9483328102) message] The system which generated this result transmitted reference range : 0.0 - 10.0 /100 WBCs. The refer ence range was not u sed to interpret th is result as normal/abnormal . NRBC x10^3 (test code <0.01 See_Comment [Auto mated = 7674954958) message] The s ysteThreadbox which generated this result transmitted reference range : 10*3/?L. The reference range was not used to interpret this result as normal/abnormal . GRAN MAT (NEUT) % 73.1 % (test code = 770-8) IMM GRAN % (test code 2.00 % = 4038626873) LYMPH % (test code = 14.0 % 736-9) MONO % (test code = 8.3 % 5905-5) EOS % (test code = 2.3 % 713-8) BASO % (test code = 0.3 % 706-2) GRAN MAT x10^3(ANC) 4.48 10*3/uL 1.99-6.95 (test code = 6154050733) IMM GRAN x10^3 (test 0.12 10*3/uL 0.00-0.06 H code = 3288818961) LYMPH x10^3 (test code 0.86 10*3/uL 1.09-3.23 L = 731-0) MONO x10^3 (test code 0.51 10*3/uL 0.36-1.02 = 742-7) EOS x10^3 (test code = 0.14 10*3/uL 0.06-0.53 711-2) BASO x10^3 (test code <0.03 0.01-0.09 = 704-7) Lab Interpretation Abnormal (test code = 77881-7) [facility] Test Item Value Reference Range Interpretation Comments PHOSPHORUS (test code = 5349926222) 2.6 mg/dL 2.5-5.0 Lab Interpretation (test code = Normal 96439-1) [facility] (NA, K, CL, CO2, GLUCOSE, BUN, CREATININE, CA)2021-02-01 11:21:01 Test Item Value Reference Range Interpretation Comments NA (test code = 133 mmol/L 135-145 L 2794875632) K (test code = 4.4 mmol/L 3.5-5.0 2965392558) CL (test code = 96 mmol/L 98-108 L 5564556888) CO2 TOTAL (test code = 34 mmol/L 23-31 H 7839815695) AGAP (test code = 2-16 0995844135) BUN (test code = 22 mg/dL 7-23 2432910476) GLUCOSE (test code = 125 mg/dL 70-110 H 9156450327) CREATININE (test code = 0.79 mg/dL 0.60-1.25 6494880093) CALCIUM (test code = 7.7 mg/dL 8.6-10.6 L 1107108929) eGFR (test code = mL/min/1.73m2 7727815585) HAVEN (test code = HAVEN) Association of Glomerular Filtration Rate (GFR) and Staging of Kidney Disease* + --+ --+ ------+| GFR (mL/min/1.73 m2) ?| With Kidney Damage ?| ?Without Kidney Damage+ --------+ --------+ +| ?>90 ?| ?Stage one ?| ? Normal ?+ ---+ ---+ -------+| ?60-89 ?| ?Stage two ?| ? Decreased GFR ? + --+ --+ ------+| ?30-59 ?| ?Stage three ?| ? Stage three ? + --+ --+ ------+| ?15-29 ?| ?Stage four ? | ? Stage four ?+ ---+ ---+ -------+| ?<15 (or dialysis) ? ?| ?Stage five ? | ? Stage five ?+ ---+ ---+ -------+ *Each stage assumes the associated GFR level has been in effect for at least three months. ?Stages 1 to 5, with or without kidney disease, indicate chronic kidney disease. Notes: Determination of stages one and two (with eGFR >59mL/min/1.73 m2) requires estimation of kidney damage for at least three months as defined by structural or functional abnormalities of the kidney, manifested by either:Pathological abnormalities or Markers of kidney damage (including abnormalities in the composition of the blood or urine or abnormalities in imaging tests). Lab Interpretation Abnormal (test code = 57792-1) [facility] 11:21:01 Test Item Value Reference Range Interpretation Comments MAGNESIUM (test code = 4721530198) 1.3 mg/dL 1.7-2.4 L Lab Interpretation (test code = Abnormal 91294-3) [facility] acute hospital WITH [id number] 10:58:39 Test Item Value Reference Range Interpretation Comments WBC (test code = See_Comment [Automated 6690-2) message] The sy stem which generated this result transmitted reference range : 4.20 - 10.70 10*3/?L. The reference range was not used to interpret this result as normal/abnormal . RBC (test code = See_Comment L [Automated 789-8) message] The sy stem which generated this result transmitted reference range : 4.26 - 5.52 10*6/?L. The reference range was not used to interpret this result as normal/abnormal . HGB (test code = 9.3 g/dL 12.2-16.4 L 718-7) HCT (test code = 30.7 % 38.4-49.3 L 4544-3) MCV (test code = 82.7 fL 81.7-95.6 787-2) MCH (test code = 25.1 pg 26.1-32.7 L 785-6) MCHC (test code = 30.3 g/dL 31.2-35.0 L 786-4) RDW-SD (test code = 57.8 fL 38.5-51.6 H 02483-9) RDW-CV (test code = 19.2 % 12.1-15.4 H 788-0) PLT (test code = See_Comment [Automated 777-3) message] The sy stem which generated this result transmitted reference range : 150 - 328 10*3/ ?L. The reference r fernando was not used to interpret this result as normal/abnormal . MPV (test code = 9.7 fL 9.8-13.0 L 82302-4) NRBC/100 WBC (test See_Comment [Automat ed code = 1471499141) message] The system which generated this result transmitted reference range : 0.0 - 10.0 /100 WBCs. The refer ence range was not u sed to interpret th is result as normal/abnormal . NRBC x10^3 (test code <0.01 See_Comment [Auto mated = 6873967978) message] The s ystem which generated this result transmitted reference range : 10*3/?L. The reference range was not used to interpret this result as normal/abnormal . GRAN MAT (NEUT) % 80.5 % (test code = 770-8) IMM GRAN % (test code 1.80 % = 7070433049) LYMPH % (test code = 9.3 % 736-9) MONO % (test code = 6.5 % 5905-5) EOS % (test code = 1.8 % 713-8) BASO % (test code = 0.1 % 706-2) GRAN MAT x10^3(ANC) 6.39 10*3/uL 1.99-6.95 (test code = 5704556749) IMM GRAN x10^3 (test 0.14 10*3/uL 0.00-0.06 H code = 2111622414) LYMPH x10^3 (test code 0.74 10*3/uL 1.09-3.23 L = 731-0) MONO x10^3 (test code 0.52 10*3/uL 0.36-1.02 = 742-7) EOS x10^3 (test code = 0.14 10*3/uL 0.06-0.53 711-2) BASO x10^3 (test code <0.03 0.01-0.09 = 704-7) Lab Interpretation Abnormal (test code = 82100-6) [facility] [id number] 19:01:19 Test Item Value Reference Range Interpretation Comments Blood Culture-Aerobic No organisms No growth Previo us (test code = 73638-0) isolated prelim inary verified result was Culture In Progress on 01/26/2021 at 170 2 CDTPrevious preliminary verified result was No growth a t 24 hours on 01/27/2021 at 140 1 CDTPrevious preliminary verified result was No growth a t 48 hours on 01/28/2021 at 140 1 CDTPrevious preliminary verified result was No growth a t 72 hours on 01/29/2021 at 140 1 CDT Blood No organisms No growth Previous Culture-Anaerobic isolated preliminar y (test code = 02202-4) verifi ed result was Culture In Progress on 01/26/2021 at 170 2 CDTPrevious preliminary verified result was No growth a t 24 hours on 01/27/2021 at 140 1 CDTPrevious preliminary verified result was No growth a t 48 hours on 01/28/2021 at 140 1 CDTPrevious preliminary verified result was No growth a t 72 hours on 01/29/2021 at 140 1 CDT Lab Interpretation Normal (test code = 00708-3) [facility] CULTURE [id number] 19:01:19 Test Item Value Reference Range Interpretation Comments Blood Culture-Aerobic No organisms No growth Previo us (test code = 56194-8) isolated prelim inary verified result was Culture In Progress on 01/26/2021 at 170 2 CDTPrevious preliminary verified result was No growth a t 24 hours on 01/27/2021 at 140 1 CDTPrevious preliminary verified result was No growth a t 48 hours on 01/28/2021 at 140 1 CDTPrevious preliminary verified result was No growth a t 72 hours on 01/29/2021 at 140 1 CDT Blood No organisms No growth Previous Culture-Anaerobic isolated preliminar y (test code = 87316-3) verifi ed result was Culture In Progress on 01/26/2021 at 170 2 CDTPrevious preliminary verified result was No growth a t 24 hours on 01/27/2021 at 140 1 CDTPrevious preliminary verified result was No growth a t 48 hours on 01/28/2021 at 140 1 CDTPrevious preliminary verified result was No growth a t 72 hours on 01/29/2021 at 140 1 CDT Lab Interpretation Normal (test code = 68134-9) [facility] CULTURE [id number] 19:01:19 Test Item Value Reference Range Interpretation Comments Blood Culture-Aerobic No organisms No growth Previo us (test code = 66878-7) isolated prelim inary verified result was Culture In Progress on 01/26/2021 at 170 2 CDTPrevious preliminary verified result was No growth a t 24 hours on 01/27/2021 at 140 1 CDTPrevious preliminary verified result was No growth a t 48 hours on 01/28/2021 at 140 1 CDTPrevious preliminary verified result was No growth a t 72 hours on 01/29/2021 at 140 1 CDT Blood No organisms No growth Previous Culture-Anaerobic isolated preliminar y (test code = 65561-6) verifi ed result was Culture In Progress on 01/26/2021 at 170 2 CDTPrevious preliminary verified result was No growth a t 24 hours on 01/27/2021 at 140 1 CDTPrevious preliminary verified result was No growth a t 48 hours on 01/28/2021 at 140 1 CDTPrevious preliminary verified result was No growth a t 72 hours on 01/29/2021 at 140 1 CDT Lab Interpretation Normal (test code = 21254-1) [facility] [id number] 19:01:19 Test Item Value Reference Range Interpretation Comments Blood Culture-Aerobic No organisms No growth Previo us (test code = 10779-3) isolated prelim inary verified result was Culture In Progress on 01/26/2021 at 170 2 CDTPrevious preliminary verified result was No growth a t 24 hours on 01/27/2021 at 140 1 CDTPrevious preliminary verified result was No growth a t 48 hours on 01/28/2021 at 140 1 CDTPrevious preliminary verified result was No growth a t 72 hours on 01/29/2021 at 140 1 CDT Blood No organisms No growth Previous Culture-Anaerobic isolated preliminar y (test code = 92416-3) verifi ed result was Culture In Progress on 01/26/2021 at 170 2 CDTPrevious preliminary verified result was No growth a t 24 hours on 01/27/2021 at 140 1 CDTPrevious preliminary verified result was No growth a t 48 hours on 01/28/2021 at 140 1 CDTPrevious preliminary verified result was No growth a t 72 hours on 01/29/2021 at 140 1 CDT Lab Interpretation Normal (test code = 47612-0) [facility] [id number] 10:00:25 Test Item Value Reference Range Interpretation Comments WBC (test code = See_Comment [Automated 9190-2) message] The sy stem which generated this result transmitted reference range : 4.20 - 10.70 10*3/?L. The reference range was not used to interpret this result as normal/abnormal . RBC (test code = See_Comment L [Automated 959-8) message] The sy stem which generated this result transmitted reference range : 4.26 - 5.52 10*6/?L. The reference range was not used to interpret this result as normal/abnormal . HGB (test code = 9.5 g/dL 12.2-16.4 L 718-7) HCT (test code = 30.6 % 38.4-49.3 L 4544-3) MCV (test code = 83.6 fL 81.7-95.6 787-2) MCH (test code = 26.0 pg 26.1-32.7 L 785-6) MCHC (test code = 31.0 g/dL 31.2-35.0 L 786-4) RDW-SD (test code = 57.4 fL 38.5-51.6 H 84386-3) RDW-CV (test code = 18.9 % 12.1-15.4 H 788-0) PLT (test code = See_Comment [Automated 777-3) message] The sy stem which generated this result transmitted reference range : 150 - 328 10*3/ ?L. The reference r fernando was not used to interpret this result as normal/abnormal . MPV (test code = 9.3 fL 9.8-13.0 L 04055-4) NRBC/100 WBC (test See_Comment [Automat ed code = 5474157740) message] The system which generated this result transmitted reference range : 0.0 - 10.0 /100 WBCs. The refer ence range was not u sed to interpret th is result as normal/abnormal . NRBC x10^3 (test code <0.01 See_Comment [Auto mated = 4698478507) message] The s ystem which generated this result transmitted reference range : 10*3/?L. The reference range was not used to interpret this result as normal/abnormal . GRAN MAT (NEUT) % 76.5 % (test code = 770-8) IMM GRAN % (test code 2.60 % = 6421402174) LYMPH % (test code = 11.9 % 736-9) MONO % (test code = 5.7 % 5905-5) EOS % (test code = 3.1 % 713-8) BASO % (test code = 0.2 % 706-2) GRAN MAT x10^3(ANC) 5.00 10*3/uL 1.99-6.95 (test code = 0957417382) IMM GRAN x10^3 (test 0.17 10*3/uL 0.00-0.06 H code = 5952462978) LYMPH x10^3 (test code 0.78 10*3/uL 1.09-3.23 L = 731-0) MONO x10^3 (test code 0.37 10*3/uL 0.36-1.02 = 742-7) EOS x10^3 (test code = 0.20 10*3/uL 0.06-0.53 711-2) BASO x10^3 (test code <0.03 0.01-0.09 = 704-7) TOXIC CHANGES (test Present A code = 803-7) Lab Interpretation Abnormal (test code = 36367-6) [facility] acute [facility] WITH [id number] 10:00:25 Test Item Value Reference Range Interpretation Comments WBC (test code = See_Comment [Automated 6690-2) message] The sy stem which generated this result transmitted reference range : 4.20 - 10.70 10*3/?L. The reference range was not used to interpret this result as normal/abnormal . RBC (test code = See_Comment L [Automated 789-8) message] The sy stem which generated this result transmitted reference range : 4.26 - 5.52 10*6/?L. The reference range was not used to interpret this result as normal/abnormal . HGB (test code = 9.5 g/dL 12.2-16.4 L 718-7) HCT (test code = 30.6 % 38.4-49.3 L 4544-3) MCV (test code = 83.6 fL 81.7-95.6 787-2) MCH (test code = 26.0 pg 26.1-32.7 L 785-6) MCHC (test code = 31.0 g/dL 31.2-35.0 L 786-4) RDW-SD (test code = 57.4 fL 38.5-51.6 H 56459-7) RDW-CV (test code = 18.9 % 12.1-15.4 H 788-0) PLT (test code = See_Comment [Automated 777-3) message] The sy stem which generated this result transmitted reference range : 150 - 328 10*3/ ?L. The reference r fernando was not used to interpret this result as normal/abnormal . MPV (test code = 9.3 fL 9.8-13.0 L 22067-4) NRBC/100 WBC (test See_Comment [Automat ed code = 3480703132) message] The system which generated this result transmitted reference range : 0.0 - 10.0 /100 WBCs. The refer ence range was not u sed to interpret th is result as normal/abnormal . NRBC x10^3 (test code <0.01 See_Comment [Auto mated = 1801420469) message] The s ystem which generated this result transmitted reference range : 10*3/?L. The reference range was not used to interpret this result as normal/abnormal . GRAN MAT (NEUT) % 76.5 % (test code = 770-8) IMM GRAN % (test code 2.60 % = 8706607766) LYMPH % (test code = 11.9 % 736-9) MONO % (test code = 5.7 % 5905-5) EOS % (test code = 3.1 % 713-8) BASO % (test code = 0.2 % 706-2) GRAN MAT x10^3(ANC) 5.00 10*3/uL 1.99-6.95 (test code = 5703733451) IMM GRAN x10^3 (test 0.17 10*3/uL 0.00-0.06 H code = 8044288490) LYMPH x10^3 (test code 0.78 10*3/uL 1.09-3.23 L = 731-0) MONO x10^3 (test code 0.37 10*3/uL 0.36-1.02 = 742-7) EOS x10^3 (test code = 0.20 10*3/uL 0.06-0.53 711-2) BASO x10^3 (test code <0.03 0.01-0.09 = 704-7) TOXIC CHANGES (test Present A code = 803-7) Lab Interpretation Abnormal (test code = 69857-8) [facility] METABOLIC PANEL (NA, K, CL, CO2, GLUCOSE, BUN, CREATININE, CA)2021-01-31 09:38:54 Test Item Value Reference Range Interpretation Comments NA (test code = 137 mmol/L 135-145 1087882005) K (test code = 4.5 mmol/L 3.5-5.0 2156456260) CL (test code = 94 mmol/L 98-108 L 8927854236) CO2 TOTAL (test code = 36 mmol/L 23-31 H 7796954609) AGAP (test code = 2-16 4124239529) BUN (test code = 32 mg/dL 7-23 H 4392932417) GLUCOSE (test code = 93 mg/dL 70-110 7010491958) CREATININE (test code = 0.91 mg/dL 0.60-1.25 5058697844) CALCIUM (test code = 7.4 mg/dL 8.6-10.6 L 9087857212) eGFR (test code = mL/min/1.73m2 2325387290) HAVEN (test code = HAVEN) Association of Glomerular Filtration Rate (GFR) and Staging of Kidney Disease* + --+ --+ ------+| GFR (mL/min/1.73 m2) ?| With Kidney Damage ?| ?Without Kidney Damage+ --------+ --------+ +| ?>90 ?| ?Stage one ?| ? Normal ?+ ---+ ---+ -------+| ?60-89 ?| ?Stage two ?| ? Decreased GFR ? + --+ --+ ------+| ?30-59 ?| ?Stage three ?| ? Stage three ? + --+ --+ ------+| ?15-29 ?| ?Stage four ? | ? Stage four ?+ ---+ ---+ -------+| ?<15 (or dialysis) ? ?| ?Stage five ? | ? Stage five ?+ ---+ ---+ -------+ *Each stage assumes the associated GFR level has been in effect for at least three months. ?Stages 1 to 5, with or without kidney disease, indicate chronic kidney disease. Notes: Determination of stages one and two (with eGFR >59mL/min/1.73 m2) requires estimation of kidney damage for at least three months as defined by structural or functional abnormalities of the kidney, manifested by either:Pathological abnormalities or Markers of kidney damage (including abnormalities in the composition of the blood or urine or abnormalities in imaging tests). Lab Interpretation Abnormal (test code = 99152-2) [facility] METABOLIC PANEL (NA, K, CL, CO2, GLUCOSE, BUN, CREATININE, CA)2021-01-31 09:38:54 Test Item Value Reference Range Interpretation Comments NA (test code = 137 mmol/L 135-145 8573284693) K (test code = 4.5 mmol/L 3.5-5.0 2456285054) CL (test code = 94 mmol/L 98-108 L 1008720400) CO2 TOTAL (test code = 36 mmol/L 23-31 H 2591295296) AGAP (test code = 2-16 5710628476) BUN (test code = 32 mg/dL 7-23 H 6733013490) GLUCOSE (test code = 93 mg/dL 70-110 8750998137) CREATININE (test code = 0.91 mg/dL 0.60-1.25 7889675999) CALCIUM (test code = 7.4 mg/dL 8.6-10.6 L 7253244029) eGFR (test code = mL/min/1.73m2 8608449533) HAVEN (test code = HAVEN) Association of Glomerular Filtration Rate (GFR) and Staging of Kidney Disease* + --+ --+ ------+| GFR (mL/min/1.73 m2) ?| With Kidney Damage ?| ?Without Kidney Damage+ --------+ --------+ +| ?>90 ?| ?Stage one ?| ? Normal ?+ ---+ ---+ -------+| ?60-89 ?| ?Stage two ?| ? Decreased GFR ? + --+ --+ ------+| ?30-59 ?| ?Stage three ?| ? Stage three ? + --+ --+ ------+| ?15-29 ?| ?Stage four ? | ? Stage four ?+ ---+ ---+ -------+| ?<15 (or dialysis) ? ?| ?Stage five ? | ? Stage five ?+ ---+ ---+ -------+ *Each stage assumes the associated GFR level has been in effect for at least three months. ?Stages 1 to 5, with or without kidney disease, indicate chronic kidney disease. Notes: Determination of stages one and two (with eGFR >59mL/min/1.73 m2) requires estimation of kidney damage for at least three months as defined by structural or functional abnormalities of the kidney, manifested by either:Pathological abnormalities or Markers of kidney damage (including abnormalities in the composition of the blood or urine or abnormalities in imaging tests). Lab Interpretation Abnormal (test code = 44983-9) [facility] Test Item Value Reference Range Interpretation Comments MAGNESIUM (test code = 3464721908) 1.1 mg/dL 1.7-2.4 L Lab Interpretation (test code = Abnormal 01242-2) [facility] Test Item Value Reference Range Interpretation Comments MAGNESIUM (test code = 5747660362) 1.1 mg/dL 1.7-2.4 L Lab Interpretation (test code = Abnormal 65075-0) [facility] acute hospital WITH [id number] 02:37:37 Test Item Value Reference Range Interpretation Comments WBC (test code = See_Comment [Automated 6690-2) message] The sy stem which generated this result transmitted reference range : 4.20 - 10.70 10*3/?L. The reference range was not used to interpret this result as normal/abnormal . RBC (test code = See_Comment L [Automated 789-8) message] The sy stem which generated this result transmitted reference range : 4.26 - 5.52 10*6/?L. The reference range was not used to interpret this result as normal/abnormal . HGB (test code = 9.9 g/dL 12.2-16.4 L 718-7) HCT (test code = 33.1 % 38.4-49.3 L 4544-3) MCV (test code = 83.0 fL 81.7-95.6 787-2) MCH (test code = 24.8 pg 26.1-32.7 L 785-6) MCHC (test code = 29.9 g/dL 31.2-35.0 L 786-4) RDW-SD (test code = 57.5 fL 38.5-51.6 H 72456-7) RDW-CV (test code = 19.2 % 12.1-15.4 H 788-0) PLT (test code = See_Comment [Automated 777-3) message] The sy stem which generated this result transmitted reference range : 150 - 328 10*3/ ?L. The reference r fernando was not used to interpret this result as normal/abnormal . MPV (test code = 9.5 fL 9.8-13.0 L 92402-3) NRBC/100 WBC (test See_Comment [Automat ed code = 4505750663) message] The system which generated this result transmitted reference range : 0.0 - 10.0 /100 WBCs. The refer ence range was not u sed to interpret th is result as normal/abnormal . NRBC x10^3 (test code <0.01 See_Comment [Auto mated = 1563046318) message] The s ystem which generated this result transmitted reference range : 10*3/?L. The reference range was not used to interpret this result as normal/abnormal . GRAN MAT (NEUT) % 78.5 % (test code = 770-8) IMM GRAN % (test code 2.40 % = 6096429823) LYMPH % (test code = 9.8 % 736-9) MONO % (test code = 6.1 % 5905-5) EOS % (test code = 2.9 % 713-8) BASO % (test code = 0.3 % 706-2) GRAN MAT x10^3(ANC) 6.23 10*3/uL 1.99-6.95 (test code = 0846670932) IMM GRAN x10^3 (test 0.19 10*3/uL 0.00-0.06 H code = 3066501930) LYMPH x10^3 (test code 0.78 10*3/uL 1.09-3.23 L = 731-0) MONO x10^3 (test code 0.48 10*3/uL 0.36-1.02 = 742-7) EOS x10^3 (test code = 0.23 10*3/uL 0.06-0.53 711-2) BASO x10^3 (test code <0.03 0.01-0.09 = 704-7) REACT LYMPHS (test Rare code = 6351326929) TOXIC CHANGES (test Present A code = 803-7) Lab Interpretation Abnormal (test code = 86395-6) General acute hospital WITH [id number] 02:37:37 Test Item Value Reference Range Interpretation Comments WBC (test code = See_Comment [Automated 6690-2) message] The sy stem which generated this result transmitted reference range : 4.20 - 10.70 10*3/?L. The reference range was not used to interpret this result as normal/abnormal . RBC (test code = See_Comment L [Automated 789-8) message] The sy stem which generated this result transmitted reference range : 4.26 - 5.52 10*6/?L. The reference range was not used to interpret this result as normal/abnormal . HGB (test code = 9.9 g/dL 12.2-16.4 L 718-7) HCT (test code = 33.1 % 38.4-49.3 L 4544-3) MCV (test code = 83.0 fL 81.7-95.6 787-2) MCH (test code = 24.8 pg 26.1-32.7 L 785-6) MCHC (test code = 29.9 g/dL 31.2-35.0 L 786-4) RDW-SD (test code = 57.5 fL 38.5-51.6 H 66180-0) RDW-CV (test code = 19.2 % 12.1-15.4 H 788-0) PLT (test code = See_Comment [Automated 777-3) message] The sy stem which generated this result transmitted reference range : 150 - 328 10*3/ ?L. The reference r fernando was not used to interpret this result as normal/abnormal . MPV (test code = 9.5 fL 9.8-13.0 L 69433-5) NRBC/100 WBC (test See_Comment [Automat ed code = 2672403880) message] The system which generated this result transmitted reference range : 0.0 - 10.0 /100 WBCs. The refer ence range was not u sed to interpret th is result as normal/abnormal . NRBC x10^3 (test code <0.01 See_Comment [Auto mated = 2698227042) message] The s ystem which generated this result transmitted reference range : 10*3/?L. The reference range was not used to interpret this result as normal/abnormal . GRAN MAT (NEUT) % 78.5 % (test code = 770-8) IMM GRAN % (test code 2.40 % = 2600974842) LYMPH % (test code = 9.8 % 736-9) MONO % (test code = 6.1 % 5905-5) EOS % (test code = 2.9 % 713-8) BASO % (test code = 0.3 % 706-2) GRAN MAT x10^3(ANC) 6.23 10*3/uL 1.99-6.95 (test code = 2769258995) IMM GRAN x10^3 (test 0.19 10*3/uL 0.00-0.06 H code = 3289842018) LYMPH x10^3 (test code 0.78 10*3/uL 1.09-3.23 L = 731-0) MONO x10^3 (test code 0.48 10*3/uL 0.36-1.02 = 742-7) EOS x10^3 (test code = 0.23 10*3/uL 0.06-0.53 711-2) BASO x10^3 (test code <0.03 0.01-0.09 = 704-7) REACT LYMPHS (test Rare code = 2603221209) TOXIC CHANGES (test Present A code = 803-7) Lab Interpretation Abnormal (test code = 34018-4) [facility] [id number] 22:24:42COVID DMT InterpretationInterpretation/Recommendations:Molecular NAAT Tests for Active Infection with the SARS-CoV-2 Virus:The patient has currently tested negative for the SARS-CoV-2 virus that causesCOVID-19 illness. This most likely indicates that the patient does not have an active infection withthe SARS-CoV-2 virus. However, infection is not completely ruled out as the false negative rate for molecular NAAT testing using a nasopharyngeal sample can be up to 30%, mostly dependent on the timingof sample collection in relation to illness onset and any deficiencies in sampling techniques. If the patient has symptoms concerning for COVID-19 illness, a repeat NAAT test (PCR, Rapid ID Now, etc.) should be performed, at which time the SARS-CoV-2 virus - if present - may have reached a detectable viral load (usually peaking by the end of the first week of symptoms). Tests for IgM and/or IgG Antibodies to the SARS-CoV-2 Virus:Testing for IgM and IgG antibodies approximately 3 weeks after illness o nset will likely indicate if the patient has produced antibodies to the SARS-CoV-2 virus. However, some patients may take longer to develop detectable antibodies, while others infected with SARS-CoV-2 may never develop antibodies, particularly those who have had mild or asymptomatic illness. Of note, if the patient has been vaccinated earlier than 1-2 weeks prior to antibody testing, any positive SARS-CoV-2 IgG antibody result is likely due to vaccination. The specific duration and strength of immunity from SARS-CoV-2 IgG antibodies is highly variable between individuals and is dependent on a variety of factors, including infection vs. vaccination response, initial infection severity, the strengthof the patient's own immune system, and the variants to which the patient has been exposed. ? ------- Interpretation Result Comments:These interpretation comments are based upon all COVID-19 testing the patient has had at [facility], includingmolecular NAAT testing (more commonly known as PCR testing and Rapid ID Now testing) and antibody testing. It does not take into account any testing that a patient has had outside of the [facility] medical record. [facility]ORAT[facility] SERVICESCOVID [id number]-1 Rapid ID NOW (no units) ? ? Date ? Value ? 01/30/2021 ? Not Detected ? ? ? 01/22/2021 ? Not Detected ? ? ? 07/19/2020 ? Not Detected ? ? ? 07/12/2020 ? Positive (A) ? ? ? 06/21/2020 ? Positive (A) ? [facility] COVID INTERPRETATION 2021-01-30 22:24:42COVID DMT InterpretationInterpretation/Recommendations:Molecular NAAT Tests for Active Infection with the SARS-CoV-2 Virus:The patient has currently tested negative for the SARS-CoV-2 virus that causesCOVID-19 illness. This most likely indicates that the patient does not have an active infection withthe SARS-CoV-2 virus. However, infection is not completely ruled out as the false negative rate for m olecular NAAT testing using a nasopharyngeal sample can be up to 30%, mostly dependent on the timingof sample collection in relation to illness onset and any deficiencies in sampling techniques. If the patient has symptoms concerning for COVID-19 illness, a repeat NAAT test (PCR, Rapid ID Now, etc.) should be performed, at which time the SARS-CoV-2 virus - if present - may have reached a detectable viral load (usually peaking by the end of the first week of symptoms). Tests for IgM and/or IgG Antibodies to the SARS-CoV-2 Virus:Testing for IgM and IgG antibodies approximately 3 weeks after illness onset will likely indicate if the patient has produced antibodies to the SARS-CoV-2 virus. However, some patients may take longer to develop detectable antibodies, while others infected with SARS-CoV-2 may never develop antibodies, particularly those who have had mild or asymptomatic illness. Of note, if the patient has been vaccinated earlier than 1-2 weeks prior to antibody testing, any positive SARS -CoV-2 IgG antibody result is likely due to vaccination. The specific duration and strength of immunity from SARS-CoV-2 IgG antibodies is highly variable between individuals and is dependent on a variety of factors, including infection vs. vaccination response, initial infection severity, the strengthof the patient's own immune system, and the variants to which the patient has been exposed. ? ------- Interpretation Result Comments:These interpretation comments are based upon all COVID-19 testing the patient has had at [facility], includingmolecular NAAT testing (more commonly known as PCR testing and Rapid ID Now testing) and antibody testing. It does not take into account any testing that a patient has had outside of the [facility] medical record. [facility] LAB[facility]ORY SERVICESCOVID [id number]-[id number] Rapid ID NOW (no units) ? ? Date ? Value ? 01/30/2021 ? Not Detected ? ? ? 01/22/2021 ? Not Detected ? ? ? 07/19/2020 ? Not Detected ? ? ? 07/12/2020 ? Positive (A) ? ? ? 06/21/2020 ? Positive (A) ? [facility] SERVICESUn[facility] + LACTIC [id number] 22:18:39 Test Item Value Reference Range Interpretation Comments PH (test code = 2) 7.35-7.45 H PCO2 (test code = See_Comment H [Automat ed 4328321419) message] The sy stem which generated this result transmitted reference range : 35 - 45 mmHg. The reference range was not used to interpret this result as normal/abnormal . PO2 (test code = See_Comment H [Automated 6417777499) message] The sy stem which generated this result transmitted reference range : 80 - 100 mmHg. The reference range was not used to interpret this result as normal/abnormal . HCO3 (test code = See_Comment H [Automate d 8071399683) message] The sy stem which generated this result transmitted reference range : 22 - 26 mEq/L. The reference range was not used to interpret this result as normal/abnormal . BE (test code = See_Comment H [Automated 3588406971) message] The sy stem which generated this result transmitted reference range : -3.0 - 3.0 mEq/ L. The reference r fernando was not used to interpret this result as normal/abnormal . THB (test code = 11.3 g/dL 13.5-18.0 L 3214823669) %O2HB (test code = 97.1 % 94.0-99.0 8301859999) %COHB ART (test code = 0.7 % 0.0-1.5 8932085394) %METHB ART (test code = 0.2 % 0.4-1.5 L 3822203417) VOL%O2 ART (test code = 15.6 % 15.0-23.0 6979813270) NA (test code = 134 mmol/L 135-145 L 5091712071) K+ (test code = 4.3 mmol/L 3.5-5.0 7039175669) AC CA IONZ (test code = 4.00 mg/dL 4.50-5.30 L 9944508401) GLUCOSE (test code = 117 mg/dL 70-110 H 1219957955) LACTIC ACID (test code 1.12 mmol/L 0.50-2.20 = 0827103810) Lab Interpretation Abnormal (test code = 93166-2) [facility] + LACTIC [id number] 22:18:39 Test Item Value Reference Range Interpretation Comments PH (test code = 2) 7.35-7.45 H PCO2 (test code = See_Comment H [Automat ed 0771069711) message] The sy stem which generated this result transmitted reference range : 35 - 45 mmHg. The reference range was not used to interpret this result as normal/abnormal . PO2 (test code = See_Comment H [Automated 8950481936) message] The sy stem which generated this result transmitted reference range : 80 - 100 mmHg. The reference range was not used to interpret this result as normal/abnormal . HCO3 (test code = See_Comment H [Automate d 1229089918) message] The sy stem which generated this result transmitted reference range : 22 - 26 mEq/L. The reference range was not used to interpret this result as normal/abnormal . BE (test code = See_Comment H [Automated 1007305184) message] The sy stem which generated this result transmitted reference range : -3.0 - 3.0 mEq/ L. The reference r fernando was not used to interpret this result as normal/abnormal . THB (test code = 11.3 g/dL 13.5-18.0 L 7662492139) %O2HB (test code = 97.1 % 94.0-99.0 0822922488) %COHB ART (test code = 0.7 % 0.0-1.5 8321937371) %METHB ART (test code = 0.2 % 0.4-1.5 L 2914188760) VOL%O2 ART (test code = 15.6 % 15.0-23.0 1083457401) NA (test code = 134 mmol/L 135-145 L 7266538228) K+ (test code = 4.3 mmol/L 3.5-5.0 1919156213) AC CA IONZ (test code = 4.00 mg/dL 4.50-5.30 L 2553034774) GLUCOSE (test code = 117 mg/dL 70-110 H 9170573813) LACTIC ACID (test code 1.12 mmol/L 0.50-2.20 = 7836172709) Lab Interpretation Abnormal (test code = 93940-2) [facility] - Draw immediately prior to the 4TH dose, but, no more than 60 minutes before the 4TH dose. 2021-01-30 22:17:43 Test Item Value Reference Range Interpretation Comments VANCO TROUGH (test code 13.8 ug/mL 10.0-20.0 = 6221390669) HAVEN (test code = HAVEN) Toxic Range: ?>20 ug/mL 15-20 ug/mL is recommended for severe infection or when Vancomycin KO is greater than or equal to 2. Lab Interpretation (test Normal code = 36801-7) [facility] Trough [facility] - Draw immediately prior to the 4TH dose, but, no more than 60 minutes before the 4TH dose. 2021-01-30 22:17:43 Test Item Value Reference Range Interpretation Comments VANCO TROUGH (test code 13.8 ug/mL 10.0-20.0 = 1232614434) HAVEN (test code = HAVEN) Toxic Range: ?>20 ug/mL 15-20 ug/mL is recommended for severe infection or when Vancomycin KO is greater than or equal to 2. Lab Interpretation (test Normal code = 15784-2) [facility] TIME OR (NON-REPORTABLE)2021-01-30 20:47:53 These images do not require a Radiology diagnostic report.[facility] (NON-REPORTABLE)2021-01-30 20:47:53These images do not require a Radiology diagnostic report.[facility] TempleXR CHEST 1 [id number] 16:51:26 Interval decrease in size of left pleural effusion. Persistent low leftlung volumes and left lower lung atelectasis. Unchanged position of right subclavian catheter terminating in the aorticarch, as co nfirmed on recent CT chest. Preliminary Report Dictated by Resident: Fortino Marmolejo MD., have reviewed this study and agree with the abovereport.EXAM: XR CHEST 1 VW COMPARISON: Multiple radiographs, latest dated 01/27/2021 HISTORY: Pneumonia L atelectasis FINDINGS: Lines and tubes: Right subclavian catheter projects over the aortic arch,unchanged from multiple prior radiographs. Lungs: The lungs are underexpanded with pulmonary vascular crowding.Interval decrease in size of left pleural effusion, now small in volume.Left lower lung atelectasis remains. Heart/Mediastinum: The c ardiomediastinal silhouette remains enlarged. Bones: No osseous lesions are detected. Lobulated calcification projectsover the left axilla, unchanged. [facility], Radiant Results Inft User - 01/30/2021 11:52AM CDT EXAM: XR CHEST 1 VWCOMPARISON: Multiple radiographs, latest dated 01/27/2021HISTORY: Pneumonia L atelectasis FINDINGS:Lines and tubes: Right subclavian catheter projects over the aortic arch,unchanged from multiple prior radiographs.Lungs: The lungs are underexpanded with pulmonary vascular crowding.Interval decrease in size of left pleural effusion, now small in volume.Left lower lung atelectasis remains.Heart/Mediastinum: The cardiomediastinal silhouette remains enlarged.Bones: No osseous lesions are detected. Lobulated calcification projectsover the left axilla, unchanged.IMPRESSIONInterval decrease in size of left pleural effusion. Persistent low leftlung volumes and left lower lung atelectasis.Unchanged position of right subclavian catheter terminating in the aorticarch, as confirmed on recent CT chest.Preliminary Report Dictated by Resident: Fortino Rutledge MD., have reviewed this study and agree with theabovereport.[facility] 1 VW 2021-01-30 16:51:26 Interval decrease in size of left pleural effusion. Persistent low leftlung volumes and left lower lung atelectasis. Unchanged position of right subclavian catheter terminating in the aorticarch, as co nfirmed on recent CT chest. Preliminary Report Dictated by Resident: Fortino Marmolejo MD., have reviewed this study and agree with the abovereport.EXAM: XR CHEST 1 VW COMPARISON: Multiple radiographs, latest dated 01/27/2021 HISTORY: Pneumonia L atelectasis FINDINGS: Lines and tubes: Right subclavian catheter projects over the aortic arch,unchanged from multiple prior radiographs. Lungs: The lungs are underexpanded with pulmonary vascular crowding.Interval decrease in size of left pleural effusion, now small in volume.Left lower lung atelectasis remains. Heart/Mediastinum: The c ardiomediastinal silhouette remains enlarged. Bones: No osseous lesions are detected. Lobulated calcification projectsover the left axilla, unchanged. [facility], Radiant Results Inft User - 01/30/2021 11:52AM CDT EXAM: XR CHEST 1 VWCOMPARISON: Multiple radiographs, latest dated 01/27/2021HISTORY: Pneumonia L atelectasis FINDINGS:Lines and tubes: Right subclavian catheter projects over the aortic arch,unchanged from multiple prior radiographs.Lungs: The lungs are underexpanded with pulmonary vascular crowding.Interval decrease in size of left pleural effusion, now small in volume.Left lower lung atelectasis remains.Heart/Mediastinum: The cardiomediastinal silhouette remains enlarged.Bones: No osseous lesions are detected. Lobulated calcification projectsover the left axilla, unchanged.IMPRESSIONInterval decrease in size of left pleural effusion. Persistent low leftlung volumes and left lower lung atelectasis.Unchanged position of right subclavian catheter terminating in the aorticarch, as confirmed on recent CT chest.Preliminary Report Dictated by Resident: Fortino Rutledge MD., have reviewed this study and agree with theabovereport.[facility] TempleABORH Confirmation (Lab Only)2021-01-30 14:56:47 Test Item Value Reference Range Interpretation Comments ABO & RH (test code A Positive Performe d at [facility] = 20) Laboratory [facility] Blood [address] [place] [id number] Free: [phone] A No. [id number] [facility] Confirmation (Lab Only)2021-01-30 14:56:47 Test Item Value Reference Range Interpretation Comments ABO & RH (test code A Positive Performe d at [facility] = 20) Laboratory [facility] Blood [address] s [id number] Free: [phone] A No. [id number] [facility] and Screen - ONCE [id number] 14:21:21 Test Item Value Reference Range Interpretation Comments ABO & RH (test code A POSITIVE Performe d at [facility] = 20) Laboratory [facility] Blood [address] s [id number] Free: [phone] A No. [id number] IAT (test code = Negative Performed a t [facility] 1185) Laboratory [facility] Blood [address] s [id number] Free: [phone] A No. [id number] [facility] and Screen - ONCE [id number] 14:21:21 Test Item Value Reference Range Interpretation Comments ABO & RH (test code A POSITIVE Performe d at [facility] = 20) Laboratory [facility] Blood [address] s [id number] Free: [phone] A No. [id number] IAT (test code = Negative Performed a t [facility] 1185) Laboratory [facility] Blood [address] s [id number] Free: [phone] A No. [id number] [facility] / MSSA Screen by PCR, [id number] 10:30:03 Test Item Value Reference Range Interpretation Comments MRSA Screen by PCR, Positive Negative A Nares (test code = 94448-2) MRSA/MSSA Positive? Yes No A (test code = 5692459488) HAVEN (test code = HVAEN) A positive test result does not necessarily indicate the presence of viable organism. Lab Interpretation (test Abnormal code = 10922-8) [facility] / MSSA Screen by PCR, [id number] 10:30:03 Test Item Value Reference Range Interpretation Comments MRSA Screen by PCR, Positive Negative A Nares (test code = 88653-3) MRSA/MSSA Positive? Yes No A (test code = 7166213869) HAVEN (test code = HAVEN) A positive test result does not necessarily indicate the presence of viable organism. Lab Interpretation (test Abnormal code = 16206-6) General acute hospital WITH [id number] 10:12:49 Test Item Value Reference Range Interpretation Comments WBC (test code = See_Comment [Automated 6690-2) message] The sy stem which generated this result transmitted reference range : 4.20 - 10.70 10*3/?L. The reference range was not used to interpret this result as normal/abnormal . RBC (test code = See_Comment L [Automated 789-8) message] The sy stem which generated this result transmitted reference range : 4.26 - 5.52 10*6/?L. The reference range was not used to interpret this result as normal/abnormal . HGB (test code = 9.8 g/dL 12.2-16.4 L 718-7) HCT (test code = 32.8 % 38.4-49.3 L 4544-3) MCV (test code = 82.6 fL 81.7-95.6 787-2) MCH (test code = 24.7 pg 26.1-32.7 L 785-6) MCHC (test code = 29.9 g/dL 31.2-35.0 L 786-4) RDW-SD (test code = 56.7 fL 38.5-51.6 H 49706-5) RDW-CV (test code = 18.8 % 12.1-15.4 H 788-0) PLT (test code = See_Comment [Automated 777-3) message] The sy stem which generated this result transmitted reference range : 150 - 328 10*3/ ?L. The reference r fernando was not used to interpret this result as normal/abnormal . MPV (test code = 9.4 fL 9.8-13.0 L 61241-6) NRBC/100 WBC (test See_Comment [Automat ed code = 1128752699) message] The system which generated this result transmitted reference range : 0.0 - 10.0 /100 WBCs. The refer ence range was not u sed to interpret th is result as normal/abnormal . NRBC x10^3 (test code <0.01 See_Comment [Auto mated = 5156674420) message] The s ystem which generated this result transmitted reference range : 10*3/?L. The reference range was not used to interpret this result as normal/abnormal . GRAN MAT (NEUT) % 71.8 % (test code = 770-8) IMM GRAN % (test code 4.40 % = 7485862286) LYMPH % (test code = 15.1 % 736-9) MONO % (test code = 5.3 % 5905-5) EOS % (test code = 3.2 % 713-8) BASO % (test code = 0.2 % 706-2) GRAN MAT x10^3(ANC) 4.72 10*3/uL 1.99-6.95 (test code = 3966323427) IMM GRAN x10^3 (test 0.29 10*3/uL 0.00-0.06 H code = 7671809798) LYMPH x10^3 (test code 0.99 10*3/uL 1.09-3.23 L = 731-0) MONO x10^3 (test code 0.35 10*3/uL 0.36-1.02 L = 742-7) EOS x10^3 (test code = 0.21 10*3/uL 0.06-0.53 711-2) BASO x10^3 (test code <0.03 0.01-0.09 = 704-7) TOXIC CHANGES (test Present A code = 803-7) Lab Interpretation Abnormal (test code = 37322-6) General acute hospital WITH [id number] 10:12:49 Test Item Value Reference Range Interpretation Comments WBC (test code = See_Comment [Automated 6690-2) message] The sy stem which generated this result transmitted reference range : 4.20 - 10.70 10*3/?L. The reference range was not used to interpret this result as normal/abnormal . RBC (test code = See_Comment L [Automated 789-8) message] The sy stem which generated this result transmitted reference range : 4.26 - 5.52 10*6/?L. The reference range was not used to interpret this result as normal/abnormal . HGB (test code = 9.8 g/dL 12.2-16.4 L 718-7) HCT (test code = 32.8 % 38.4-49.3 L 4544-3) MCV (test code = 82.6 fL 81.7-95.6 787-2) MCH (test code = 24.7 pg 26.1-32.7 L 785-6) MCHC (test code = 29.9 g/dL 31.2-35.0 L 786-4) RDW-SD (test code = 56.7 fL 38.5-51.6 H 63179-4) RDW-CV (test code = 18.8 % 12.1-15.4 H 788-0) PLT (test code = See_Comment [Automated 777-3) message] The sy stem which generated this result transmitted reference range : 150 - 328 10*3/ ?L. The reference r fernando was not used to interpret this result as normal/abnormal . MPV (test code = 9.4 fL 9.8-13.0 L 39886-7) NRBC/100 WBC (test See_Comment [Automat ed code = 8881472456) message] The system which generated this result transmitted reference range : 0.0 - 10.0 /100 WBCs. The refer ence range was not u sed to interpret th is result as normal/abnormal . NRBC x10^3 (test code <0.01 See_Comment [Auto mated = 0482414661) message] The s ystem which generated this result transmitted reference range : 10*3/?L. The reference range was not used to interpret this result as normal/abnormal . GRAN MAT (NEUT) % 71.8 % (test code = 770-8) IMM GRAN % (test code 4.40 % = 6929390633) LYMPH % (test code = 15.1 % 736-9) MONO % (test code = 5.3 % 5905-5) EOS % (test code = 3.2 % 713-8) BASO % (test code = 0.2 % 706-2) GRAN MAT x10^3(ANC) 4.72 10*3/uL 1.99-6.95 (test code = 2390919699) IMM GRAN x10^3 (test 0.29 10*3/uL 0.00-0.06 H code = 0834695901) LYMPH x10^3 (test code 0.99 10*3/uL 1.09-3.23 L = 731-0) MONO x10^3 (test code 0.35 10*3/uL 0.36-1.02 L = 742-7) EOS x10^3 (test code = 0.21 10*3/uL 0.06-0.53 711-2) BASO x10^3 (test code <0.03 0.01-0.09 = 704-7) TOXIC CHANGES (test Present A code = 803-7) Lab Interpretation Abnormal (test code = 36278-7) [facility] METABOLIC PANEL (NA, K, CL, CO2, GLUCOSE, BUN, CREATININE, CA)2021-01-30 09:36:55 Test Item Value Reference Range Interpretation Comments NA (test code = 135 mmol/L 135-145 4753837868) K (test code = 4.2 mmol/L 3.5-5.0 2004086686) CL (test code = 91 mmol/L 98-108 L 8075682749) CO2 TOTAL (test code = 37 mmol/L 23-31 H 1015184861) AGAP (test code = 2-16 5319234884) BUN (test code = 40 mg/dL 7-23 H 1585679695) GLUCOSE (test code = 108 mg/dL 70-110 4429845891) CREATININE (test code = 0.93 mg/dL 0.60-1.25 2952766380) CALCIUM (test code = 7.9 mg/dL 8.6-10.6 L 8167070298) eGFR (test code = mL/min/1.73m2 5962263532) HAVEN (test code = HAVEN) Association of Glomerular Filtration Rate (GFR) and Staging of Kidney Disease* + --+ --+ ------+| GFR (mL/min/1.73 m2) ?| With Kidney Damage ?| ?Without Kidney Damage+ --------+ --------+ +| ?>90 ?| ?Stage one ?| ? Normal ?+ ---+ ---+ -------+| ?60-89 ?| ?Stage two ?| ? Decreased GFR ? + --+ --+ ------+| ?30-59 ?| ?Stage three ?| ? Stage three ? + --+ --+ ------+| ?15-29 ?| ?Stage four ? | ? Stage four ?+ ---+ ---+ -------+| ?<15 (or dialysis) ? ?| ?Stage five ? | ? Stage five ?+ ---+ ---+ -------+ *Each stage assumes the associated GFR level has been in effect for at least three months. ?Stages 1 to 5, with or without kidney disease, indicate chronic kidney disease. Notes: Determination of stages one and two (with eGFR >59mL/min/1.73 m2) requires estimation of kidney damage for at least three months as defined by structural or functional abnormalities of the kidney, manifested by either:Pathological abnormalities or Markers of kidney damage (including abnormalities in the composition of the blood or urine or abnormalities in imaging tests). Lab Interpretation Abnormal (test code = 78180-0) [facility] METABOLIC PANEL (NA, K, CL, CO2, GLUCOSE, BUN, CREATININE, CA)2021-01-30 09:36:55 Test Item Value Reference Range Interpretation Comments NA (test code = 135 mmol/L 135-145 8173649002) K (test code = 4.2 mmol/L 3.5-5.0 0176059932) CL (test code = 91 mmol/L 98-108 L 5678480695) CO2 TOTAL (test code = 37 mmol/L 23-31 H 4727450123) AGAP (test code = 2-16 6126065255) BUN (test code = 40 mg/dL 7-23 H 5677597195) GLUCOSE (test code = 108 mg/dL 70-110 3114695363) CREATININE (test code = 0.93 mg/dL 0.60-1.25 7894275598) CALCIUM (test code = 7.9 mg/dL 8.6-10.6 L 3785499783) eGFR (test code = mL/min/1.73m2 8951278856) HAVEN (test code = HAVEN) Association of Glomerular Filtration Rate (GFR) and Staging of Kidney Disease* + --+ --+ ------+| GFR (mL/min/1.73 m2) ?| With Kidney Damage ?| ?Without Kidney Damage+ --------+ --------+ +| ?>90 ?| ?Stage one ?| ? Normal ?+ ---+ ---+ -------+| ?60-89 ?| ?Stage two ?| ? Decreased GFR ? + --+ --+ ------+| ?30-59 ?| ?Stage three ?| ? Stage three ? + --+ --+ ------+| ?15-29 ?| ?Stage four ? | ? Stage four ?+ ---+ ---+ -------+| ?<15 (or dialysis) ? ?| ?Stage five ? | ? Stage five ?+ ---+ ---+ -------+ *Each stage assumes the associated GFR level has been in effect for at least three months. ?Stages 1 to 5, with or without kidney disease, indicate chronic kidney disease. Notes: Determination of stages one and two (with eGFR >59mL/min/1.73 m2) requires estimation of kidney damage for at least three months as defined by structural or functional abnormalities of the kidney, manifested by either:Pathological abnormalities or Markers of kidney damage (including abnormalities in the composition of the blood or urine or abnormalities in imaging tests). Lab Interpretation Abnormal (test code = 24565-1) [facility] [id number] 09:17:35 Test Item Value Reference Range Interpretation Comments APTT Patient (test code = See_Comment [ Automated message] 3173-2) The system [employer] generated this result transmitted ref erence range: 26 - 36 Seconds. The re ference range was not u sed to interpret this result as normal/abnor mal. Lab Interpretation (test Normal code = 66646-9) [facility] / [id number] 09:17:35 Test Item Value Reference Range Interpretation Comments PROTIME PATIENT (test See_Comment H [Auto mated message] code = 5964-2) The system [employer] generated this result transmitted ref erence range: 10.1 - 1 2.6 Seconds. The reference range was not used to int erpret this result as normal/abnormal . INR (test code = 6301-6) Nor mal INR <1.1; Warfarin Therap eutic range 2.0 to 3. 0 or 2.5 to 3.5, dep ending upon the indica tions. Lab Interpretation (test Abnormal code = 60987-8) [facility] [id number] 09:17:35 Test Item Value Reference Range Interpretation Comments APTT Patient (test code = See_Comment [ Automated message] 3173-2) The system [employer] generated this result transmitted ref erence range: 26 - 36 Seconds. The re ference range was not u sed to interpret this result as normal/abnor mal. Lab Interpretation (test Normal code = 65630-8) [facility] / [id number] 09:17:35 Test Item Value Reference Range Interpretation Comments PROTIME PATIENT (test See_Comment H [Auto mated message] code = 5964-2) The system [employer] generated this result transmitted ref erence range: 10.1 - 1 2.6 Seconds. The reference range was not used to int erpret this result as normal/abnormal . INR (test code = 6301-6) Nor mal INR <1.1; Warfarin Therap eutic range 2.0 to 3. 0 or 2.5 to 3.5, dep ending upon the indica tions. Lab Interpretation (test Abnormal code = 28893-4) [facility]ID NOW RAPID TESTING)2021-01-30 05:45:46 Test Item Value Reference Range Interpretation Comments SARS-CoV-2 Rapid ID NOW Not Detected Not Detected (test code = 85051-2) HAVEN (test code = HAVEN) ID NOW COVID-19 Assay is an isothermal nucleic acid amplification test intended for the qualitative detection of nucleic acid from SARS-CoV-2 viral RNA in nasopharyngeal ([employer]) specimens. It is used under Emergency Use Authorization (EUA) by FDA. The limit of detection (LOD) of the assay is 125 Genome Equivalents/mL. A positive result is indicative of the presence of SARS-CoV-2 RNA. ?Clinical correlation with patient history and other diagnostic information is necessary to determine patient infection status. A negative (Not Detected) result does not preclude SARS-CoV-2 infection. In patients with clinical symptoms and other tests that are consistent with SARS-CoV-2 infection, negative results should be treated as presumptive negative and a new specimen should be tested with alternative PCR molecular test. Invalid: Please collect a new specimen for repeat patient testing if clinically indicated. Lab Interpretation Normal (test code = 04341-0) [facility] NOW RAPID TESTING)2021-01-30 05:45:46 Test Item Value Reference Range Interpretation Comments SARS-CoV-2 Rapid ID NOW Not Detected Not Detected (test code = 58890-5) HAVEN (test code = HAVEN) ID NOW COVID-19 Assay is an isothermal nucleic acid amplification test intended for the qualitative detection of nucleic acid from SARS-CoV-2 viral RNA in nasopharyngeal ([employer]) specimens. It is used under Emergency Use Authorization (EUA) by FDA. The limit of detection (LOD) of the assay is 125 Genome Equivalents/mL. A positive result is indicative of the presence of SARS-CoV-2 RNA. ?Clinical correlation with patient history and other diagnostic information is necessary to determine patient infection status. A negative (Not Detected) result does not preclude SARS-CoV-2 infection. In patients with clinical symptoms and other tests that are consistent with SARS-CoV-2 infection, negative results should be treated as presumptive negative and a new specimen should be tested with alternative PCR molecular test. Invalid: Please collect a new specimen for repeat patient testing if clinically indicated. Lab Interpretation Normal (test code = 83219-9) [facility] [id number] 04:39:22 Test Item Value Reference Range Interpretation Comments APTT Patient (test code = See_Comment [ Automated message] 3173-2) The system [employer] generated this result transmitted ref erence range: 26 - 36 Seconds. The re ference range was not u sed to interpret this result as normal/abnor mal. Lab Interpretation (test Normal code = 92169-6) [facility] [id number] 04:39:22 Test Item Value Reference Range Interpretation Comments APTT Patient (test code = See_Comment [ Automated message] 3173-2) The system [employer] generated this result transmitted ref erence range: 26 - 36 Seconds. The re ference range was not u sed to interpret this result as normal/abnor mal. Lab Interpretation (test Normal code = 31896-3) [facility] GLUCOSE (AUTOMATED)2021-01-30 04:14:51 Test Item Value Reference Range Interpretation Comments POCT GLU (test code = 0138386169) 132 mg/dL 70-110 H Lab Interpretation (test code = Abnormal 83220-1) [facility] GLUCOSE (AUTOMATED)2021-01-30 04:14:51 Test Item Value Reference Range Interpretation Comments POCT GLU (test code = 6795284795) 132 mg/dL 70-110 H Lab Interpretation (test code = Abnormal 08501-0) [facility] T[facility] Level - Draw no more than 60 minutes before the 1330 dose.2021-01-29 22:13:39 Test Item Value Reference Range Interpretation Comments VANCO TROUGH (test code 14.1 ug/mL 10.0-20.0 = 7336254838) HAVEN (test code = HAVEN) Toxic Range: ?>20 ug/mL 15-20 ug/mL is recommended for severe infection or when Vancomycin KO is greater than or equal to 2. Lab Interpretation (test Normal code = 22888-5) [facility] - Draw no more than 60 minutes before the 1330 dose.2021-01-29 22:13:39 Test Item Value Reference Range Interpretation Comments VANCO TROUGH (test code 14.1 ug/mL 10.0-20.0 = 1852980338) HAVEN (test code = HAVEN) Toxic Range: ?>20 ug/mL 15-20 ug/mL is recommended for severe infection or when Vancomycin KO is greater than or equal to 2. Lab Interpretation (test Normal code = 03970-9) [facility] WITH [id number] 07:59:23 Test Item Value Reference Range Interpretation Comments WBC (test code = See_Comment [Automated 6690-2) message] The sy stem which generated this result transmitted reference range : 4.20 - 10.70 10*3/?L. The reference range was not used to interpret this result as normal/abnormal . RBC (test code = See_Comment [Automated 789-8) message] The sy stem which generated this result transmitted reference range : 4.26 - 5.52 10*6/?L. The reference range was not used to interpret this result as normal/abnormal . HGB (test code = 11.1 g/dL 12.2-16.4 L 718-7) HCT (test code = 36.7 % 38.4-49.3 L 4544-3) MCV (test code = 80.3 fL 81.7-95.6 L 787-2) MCH (test code = 24.3 pg 26.1-32.7 L 785-6) MCHC (test code = 30.2 g/dL 31.2-35.0 L 786-4) RDW-SD (test code = 55.6 fL 38.5-51.6 H 71728-0) RDW-CV (test code = 18.9 % 12.1-15.4 H 788-0) PLT (test code = See_Comment [Automated 777-3) message] The sy stem which generated this result transmitted reference range : 150 - 328 10*3/ ?L. The reference r fernando was not used to interpret this result as normal/abnormal . MPV (test code = 9.1 fL 9.8-13.0 L 90299-5) NRBC/100 WBC (test See_Comment [Automat ed code = 5979981865) message] The system which generated this result transmitted reference range : 0.0 - 10.0 /100 WBCs. The refer ence range was not u sed to interpret th is result as normal/abnormal . NRBC x10^3 (test code <0.01 See_Comment [Auto mated = 6939895375) message] The s ystem which generated this result transmitted reference range : 10*3/?L. The reference range was not used to interpret this result as normal/abnormal . GRAN MAT (NEUT) % 78.9 % (test code = 770-8) IMM GRAN % (test code 0.70 % = 5782834141) LYMPH % (test code = 9.6 % 736-9) MONO % (test code = 10.2 % 5905-5) EOS % (test code = 0.2 % 713-8) BASO % (test code = 0.4 % 706-2) GRAN MAT x10^3(ANC) 7.14 10*3/uL 1.99-6.95 H (test code = 4419817054) IMM GRAN x10^3 (test 0.06 10*3/uL 0.00-0.06 code = 2710003607) LYMPH x10^3 (test code 0.87 10*3/uL 1.09-3.23 L = 731-0) MONO x10^3 (test code 0.92 10*3/uL 0.36-1.02 = 742-7) EOS x10^3 (test code = <0.03 0.06-0.53 L 711-2) BASO x10^3 (test code 0.04 10*3/uL 0.01-0.09 = 704-7) Lab Interpretation Abnormal (test code = 06861-7) [facility] acute hospital WITH [id number] 07:59:23 Test Item Value Reference Range Interpretation Comments WBC (test code = See_Comment [Automated 6190-2) message] The sy stem which generated this result transmitted reference range : 4.20 - 10.70 10*3/?L. The reference range was not used to interpret this result as normal/abnormal . RBC (test code = See_Comment [Automated 619-8) message] The sy stem which generated this result transmitted reference range : 4.26 - 5.52 10*6/?L. The reference range was not used to interpret this result as normal/abnormal . HGB (test code = 11.1 g/dL 12.2-16.4 L 718-7) HCT (test code = 36.7 % 38.4-49.3 L 4544-3) MCV (test code = 80.3 fL 81.7-95.6 L 787-2) MCH (test code = 24.3 pg 26.1-32.7 L 785-6) MCHC (test code = 30.2 g/dL 31.2-35.0 L 786-4) RDW-SD (test code = 55.6 fL 38.5-51.6 H 53905-4) RDW-CV (test code = 18.9 % 12.1-15.4 H 788-0) PLT (test code = See_Comment [Automated 777-3) message] The sy stem which generated this result transmitted reference range : 150 - 328 10*3/ ?L. The reference r fernando was not used to interpret this result as normal/abnormal . MPV (test code = 9.1 fL 9.8-13.0 L 09281-7) NRBC/100 WBC (test See_Comment [Automat ed code = 0955960783) message] The system which generated this result transmitted reference range : 0.0 - 10.0 /100 WBCs. The refer ence range was not u sed to interpret th is result as normal/abnormal . NRBC x10^3 (test code <0.01 See_Comment [Auto mated = 6722253496) message] The s ystem which generated this result transmitted reference range : 10*3/?L. The reference range was not used to interpret this result as normal/abnormal . GRAN MAT (NEUT) % 78.9 % (test code = 770-8) IMM GRAN % (test code 0.70 % = 9576351593) LYMPH % (test code = 9.6 % 736-9) MONO % (test code = 10.2 % 5905-5) EOS % (test code = 0.2 % 713-8) BASO % (test code = 0.4 % 706-2) GRAN MAT x10^3(ANC) 7.14 10*3/uL 1.99-6.95 H (test code = 0453350483) IMM GRAN x10^3 (test 0.06 10*3/uL 0.00-0.06 code = 9678562377) LYMPH x10^3 (test code 0.87 10*3/uL 1.09-3.23 L = 731-0) MONO x10^3 (test code 0.92 10*3/uL 0.36-1.02 = 742-7) EOS x10^3 (test code = <0.03 0.06-0.53 L 711-2) BASO x10^3 (test code 0.04 10*3/uL 0.01-0.09 = 704-7) Lab Interpretation Abnormal (test code = 92889-6) [facility] [id number] 07:17:19 Test Item Value Reference Range Interpretation Comments APTT Patient (test See_Comment [Automat ed code = 3173-2) message] The system which generated this result transmitted reference range : 23 - 38 Seconds . The reference range was not used to interpr et this result as normal/abnormal . HAVEN (test code = HAVEN) The [facility] patient population mean normal value for aPTT is 30 seconds. Lab Interpretation Normal (test code = 26126-8) [facility] [id number] 07:17:19 Test Item Value Reference Range Interpretation Comments APTT Patient (test See_Comment [Automat ed code = 3173-2) message] The system which generated this result transmitted reference range : 23 - 38 Seconds . The reference range was not used to interpr et this result as normal/abnormal . HAVEN (test code = HAVEN) The [facility] patient population mean normal value for aPTT is 30 seconds. Lab Interpretation Normal (test code = 00826-5) [facility] (NA, K, CL, CO2, GLUCOSE, BUN, CREATININE, CA)2021-01-28 06:57:36 Test Item Value Reference Range Interpretation Comments NA (test code = 137 mmol/L 135-145 6743627242) K (test code = 4.1 mmol/L 3.5-5.0 8108669589) CL (test code = 90 mmol/L 98-108 L 1065871343) CO2 TOTAL (test code = 40 mmol/L 23-31 H 1280524111) AGAP (test code = 2-16 5953810241) BUN (test code = 53 mg/dL 7-23 H 3756170536) GLUCOSE (test code = 146 mg/dL 70-110 H 5827826909) CREATININE (test code = 0.91 mg/dL 0.60-1.25 4154481376) CALCIUM (test code = 9.1 mg/dL 8.6-10.6 8450527045) eGFR (test code = mL/min/1.73m2 9799627492) HAVEN (test code = HAVEN) Association of Glomerular Filtration Rate (GFR) and Staging of Kidney Disease* + --+ --+ ------+| GFR (mL/min/1.73 m2) ?| With Kidney Damage ?| ?Without Kidney Damage+ --------+ --------+ +| ?>90 ?| ?Stage one ?| ? Normal ?+ ---+ ---+ -------+| ?60-89 ?| ?Stage two ?| ? Decreased GFR ? + --+ --+ ------+| ?30-59 ?| ?Stage three ?| ? Stage three ? + --+ --+ ------+| ?15-29 ?| ?Stage four ? | ? Stage four ?+ ---+ ---+ -------+| ?<15 (or dialysis) ? ?| ?Stage five ? | ? Stage five ?+ ---+ ---+ -------+ *Each stage assumes the associated GFR level has been in effect for at least three months. ?Stages 1 to 5, with or without kidney disease, indicate chronic kidney disease. Notes: Determination of stages one and two (with eGFR >59mL/min/1.73 m2) requires estimation of kidney damage for at least three months as defined by structural or functional abnormalities of the kidney, manifested by either:Pathological abnormalities or Markers of kidney damage (including abnormalities in the composition of the blood or urine or abnormalities in imaging tests). Lab Interpretation Abnormal (test code = 13903-6) [facility] (NA, K, CL, CO2, GLUCOSE, BUN, CREATININE, CA)2021-01-28 06:57:36 Test Item Value Reference Range Interpretation Comments NA (test code = 137 mmol/L 135-145 5916791929) K (test code = 4.1 mmol/L 3.5-5.0 5224243245) CL (test code = 90 mmol/L 98-108 L 5674313494) CO2 TOTAL (test code = 40 mmol/L 23-31 H 7840820239) AGAP (test code = 2-16 1027051174) BUN (test code = 53 mg/dL 7-23 H 0746382671) GLUCOSE (test code = 146 mg/dL 70-110 H 8005268759) CREATININE (test code = 0.91 mg/dL 0.60-1.25 0094631027) CALCIUM (test code = 9.1 mg/dL 8.6-10.6 7091046118) eGFR (test code = mL/min/1.73m2 6158451761) HAVEN (test code = HAVEN) Association of Glomerular Filtration Rate (GFR) and Staging of Kidney Disease* + --+ --+ ------+| GFR (mL/min/1.73 m2) ?| With Kidney Damage ?| ?Without Kidney Damage+ --------+ --------+ +| ?>90 ?| ?Stage one ?| ? Normal ?+ ---+ ---+ -------+| ?60-89 ?| ?Stage two ?| ? Decreased GFR ? + --+ --+ ------+| ?30-59 ?| ?Stage three ?| ? Stage three ? + --+ --+ ------+| ?15-29 ?| ?Stage four ? | ? Stage four ?+ ---+ ---+ -------+| ?<15 (or dialysis) ? ?| ?Stage five ? | ? Stage five ?+ ---+ ---+ -------+ *Each stage assumes the associated GFR level has been in effect for at least three months. ?Stages 1 to 5, with or without kidney disease, indicate chronic kidney disease. Notes: Determination of stages one and two (with eGFR >59mL/min/1.73 m2) requires estimation of kidney damage for at least three months as defined by structural or functional abnormalities of the kidney, manifested by either:Pathological abnormalities or Markers of kidney damage (including abnormalities in the composition of the blood or urine or abnormalities in imaging tests). Lab Interpretation Abnormal (test code = 65160-1) [facility]2021-08-08 06:51:17 Test Item Value Reference Range Interpretation Comments MAGNESIUM (test code = 4512820227) 2.2 mg/dL 1.7-2.4 Lab Interpretation (test code = Normal 81792-9) [facility]2021-08-08 06:51:17 Test Item Value Reference Range Interpretation Comments MAGNESIUM (test code = 7113364809) 2.2 mg/dL 1.7-2.4 Lab Interpretation (test code = Normal 11439-3) [facility] 06:50:56 Test Item Value Reference Range Interpretation Comments PHOSPHORUS (test code = 0144977290) 2.5 mg/dL 2.5-5.0 Lab Interpretation (test code = Normal 46508-3) [facility]21[facility] 06:50:56 Test Item Value Reference Range Interpretation Comments PHOSPHORUS (test code = 3361068560) 2.5 mg/dL 2.5-5.0 Lab Interpretation (test code = Normal 21139-9) [facility] ABG + LACTIC [id number] 21:32:04 Test Item Value Reference Range Interpretation Comments PH (test code = 2) 7.35-7.45 H PCO2 (test code = See_Comment H [Automat ed 2644881271) message] The sy stem which generated this result transmitted reference range : 35 - 45 mmHg. The reference range was not used to interpret this result as normal/abnormal . PO2 (test code = See_Comment L [Automated 9348521361) message] The sy stem which generated this result transmitted reference range : 80 - 100 mmHg. The reference range was not used to interpret this result as normal/abnormal . HCO3 (test code = See_Comment H [Automate d 0985692100) message] The sy stem which generated this result transmitted reference range : 22 - 26 mEq/L. The reference range was not used to interpret this result as normal/abnormal . BE (test code = See_Comment H [Automated 2991113718) message] The sy stem which generated this result transmitted reference range : -3.0 - 3.0 mEq/ L. The reference r fernando was not used to interpret this result as normal/abnormal . LACTIC ACID (test code 1.55 mmol/L 0.50-2.20 = 8901626216) Lab Interpretation Abnormal (test code = 24720-8) [facility] ABG + LACTIC [id number] 21:32:04 Test Item Value Reference Range Interpretation Comments PH (test code = 2) 7.35-7.45 H PCO2 (test code = See_Comment H [Automat ed 7780621509) message] The sy stem which generated this result transmitted reference range : 35 - 45 mmHg. The reference range was not used to interpret this result as normal/abnormal . PO2 (test code = See_Comment L [Automated 0168391308) message] The sy stem which generated this result transmitted reference range : 80 - 100 mmHg. The reference range was not used to interpret this result as normal/abnormal . HCO3 (test code = See_Comment H [Automate d 2433592759) message] The sy stem which generated this result transmitted reference range : 22 - 26 mEq/L. The reference range was not used to interpret this result as normal/abnormal . BE (test code = See_Comment H [Automated 3567666554) message] The sy stem which generated this result transmitted reference range : -3.0 - 3.0 mEq/ L. The reference r fernando was not used to interpret this result as normal/abnormal . LACTIC ACID (test code 1.55 mmol/L 0.50-2.20 = 9023088651) Lab Interpretation Abnormal (test code = 17933-5) [facility] VENOUS BLOOD [id number] 20:41:30 Test Item Value Reference Range Interpretation Comments PH (test code = 7.32-7.42 H 0054178670) PCO2 SADIA (test code = See_Comment [Auto mated message] 0622199403) The system [employer] generated this result transmitted ref erence range: 41 - 51 mmHg. The reference r fernando was not used to interpret this result as normal/abnor mal. PO2 SADIA (test code = See_Comment HH [Autom ated message] 6862291224) The system [employer] generated this result transmitted ref erence range: 25 - 40 mmHg. The reference r fernando was not used to interpret this result as normal/abnor mal. HCO3 SADIA (test code = See_Comment H [Auto mated message] 3334151780) The system [employer] generated this result transmitted ref erence range: 24 - 28 mEq/L. The reference r fernando was not used to interpret this result as normal/abnor mal. AC VBE(BEAKER) (test mEq/L code = 1297815561) Lab Interpretation (test Abnormal code = 69479-7) [facility] VENOUS BLOOD [id number] 20:41:30 Test Item Value Reference Range Interpretation Comments PH (test code = 7.32-7.42 H 5839005309) PCO2 SADIA (test code = See_Comment [Auto mated message] 8709586182) The system [employer] generated this result transmitted ref erence range: 41 - 51 mmHg. The reference r fernando was not used to interpret this result as normal/abnor mal. PO2 SADIA (test code = See_Comment HH [Autom ated message] [id number]) The system [employer] generated this result transmitted ref erence range: 25 - 40 mmHg. The reference r fernando was not used to interpret this result as normal/abnor mal. HCO3 SADIA (test code = See_Comment H [Auto mated message] [id number]) The system [employer] generated this result transmitted ref erence range: 24 - 28 mEq/L. The reference r fernando was not used to interpret this result as normal/abnor mal. AC VBE(BEAKER) (test mEq/L code = 5191688012) Lab Interpretation (test Abnormal code = 22724-6) [facility] [id number] 20:13:33 1. Moderate to large left pleural effusion with adjacent atelectasis.2. Right-sided subclavian catheter with the tip overlying the aortic arch.This is concerning for an arterial placement of central venous catheter.Recommend removal. These findings were discussed with nurse in charge of patient (Padmaja) at 3:13 PM on 01/27/2021 Indication: Dyspnea ? Comparison: CT of the chest 01/25/2021 RL: 4209 ORDERING PHYSICIAN: ROSENDO TADEO TECHNIQUE: Single view of the chest. FINDINGS: Right-sided subclavian catheter with the tip overlying the aorticarch. Moderate to large left pleural effusion with adjacent atelectasis.Cardiomediastinal silh ouette is within normal limits. ?No pneumothorax. Thebony structures are intact. [facility], Radiant Results Inft User - 01/27/2021 3:14 PM CDT Indication: Dyspnea Comparison: CT of the chest 1RL: 4209ORDERING PHYSICIAN: MAX FLORIAN TECHNIQUE: Single view of the chest.FINDINGS: Right-sided subclavian catheter with the tip overlying the aorticarch.Moderate to large left pleural effusion with adjacent atelectasis.Cardiomediastinal silhouette is within normal limits. No pneumothorax. Thebony structures are intact.IMPRESSION1. Moderate to large left pleural effusion with adjacent atelectasis.2. Right-sided subclavian catheter with the tip overlying the aortic arch.This is concerning for an arterial placement of central venous catheter.Recommend removal.These findings were discussed with nurse in charge of patient (Padmaja) at3:13 PM on 01/27/2021lectronically signed by Oskar Moy at 01/27/2021 3:[facility] [id number] 20:13:33 1. Moderate to large left pleural effusion with adjacent atelectasis.2. Right-sided subclavian catheter with the tip overlying the aortic arch.This is concerning for an arterial placement of central venous catheter.Recommend removal. These findings were discussed with nurse in charge of patient (Padmaja) at 3:13 PM on 01/27/2021 Indication: Dyspnea ? Comparison: CT of the chest 01/25/2021 RL: 4209 ORDERING PHYSICIAN: ROSENDO TADEO TECHNIQUE: Single view of the chest. FINDINGS: Right-sided subclavian catheter with the tip overlying the aorticarch. Moderate to large left pleural effusion with adjacent atelectasis.Cardiomediastinal silhouette is within normal limits. ?No pneumothorax. Thebony structures are intact. [facility], Radiant Results Inft User - 01/27/2021 3:14 PM CDT Indication: Dyspnea Comparison: CT of the chest 1RL: 4209ORDERING PHYSICIAN: MAX FLORIAN TECHNIQUE: Single view of the chest.FINDINGS: Right-sided subclavian catheter with the tip overlying the aorticarch.Moderate to large left pleural effusion with adjacent atelectasis.Cardiomediastinal silhouette is within normal limits. No pneumothorax. Thebony structures are intact.IMPRESSION1. Moderate to large left pleural effusion with adjacent atelectasis.2. Right-sided subclavian catheter with the tip overlying the aortic arch.This is concerning for an arterial placement of central venous catheter.Recommend removal.These findings were discussed with nurse in charge of patient (CatherinegeraldineCuauhtemoc) at3:13 PM on 01/27/2021lectronically signed by Oskar Moy at 01/27/2021 3:[facility] [id number] 11:21:58 Test Item Value Reference Range Interpretation Comments WBC (test code = See_Comment [Automated 6690-2) message] The sy stem which generated this result transmitted reference range : 4.20 - 10.70 10*3/?L. The reference range was not used to interpret this result as normal/abnormal . RBC (test code = See_Comment L [Automated 789-8) message] The sy stem which generated this result transmitted reference range : 4.26 - 5.52 10*6/?L. The reference range was not used to interpret this result as normal/abnormal . HGB (test code = 10.2 g/dL 12.2-16.4 L 718-7) HCT (test code = 33.8 % 38.4-49.3 L 4544-3) MCV (test code = 80.7 fL 81.7-95.6 L 787-2) MCH (test code = 24.3 pg 26.1-32.7 L 785-6) MCHC (test code = 30.2 g/dL 31.2-35.0 L 786-4) RDW-SD (test code = 56.7 fL 38.5-51.6 H 64018-4) RDW-CV (test code = 19.3 % 12.1-15.4 H 788-0) PLT (test code = See_Comment [Automated 777-3) message] The sy stem which generated this result transmitted reference range : 150 - 328 10*3/ ?L. The reference r fernando was not used to interpret this result as normal/abnormal . MPV (test code = 9.6 fL 9.8-13.0 L 83051-4) NRBC/100 WBC (test See_Comment [Automat ed code = 4322865710) message] The system which generated this result transmitted reference range : 0.0 - 10.0 /100 WBCs. The refer ence range was not u sed to interpret th is result as normal/abnormal . NRBC x10^3 (test code <0.01 See_Comment [Auto mated = 6533478493) message] The s ystem which generated this result transmitted reference range : 10*3/?L. The reference range was not used to interpret this result as normal/abnormal . GRAN MAT (NEUT) % 80.1 % (test code = 770-8) IMM GRAN % (test code 0.70 % = 8738085210) LYMPH % (test code = 10.5 % 736-9) MONO % (test code = 8.5 % 5905-5) EOS % (test code = 0.1 % 713-8) BASO % (test code = 0.1 % 706-2) GRAN MAT x10^3(ANC) 5.61 10*3/uL 1.99-6.95 (test code = 5280624030) IMM GRAN x10^3 (test 0.05 10*3/uL 0.00-0.06 code = 0933454430) LYMPH x10^3 (test code 0.74 10*3/uL 1.09-3.23 L = 731-0) MONO x10^3 (test code 0.60 10*3/uL 0.36-1.02 = 742-7) EOS x10^3 (test code = <0.03 0.06-0.53 L 711-2) BASO x10^3 (test code <0.03 0.01-0.09 = 704-7) Lab Interpretation Abnormal (test code = 07768-9) [facility] WITH [id number] 11:21:58 Test Item Value Reference Range Interpretation Comments WBC (test code = See_Comment [Automated 5590-2) message] The sy stem which generated this result transmitted reference range : 4.20 - 10.70 10*3/?L. The reference range was not used to interpret this result as normal/abnormal . RBC (test code = See_Comment L [Automated 789-8) message] The sy stem which generated this result transmitted reference range : 4.26 - 5.52 10*6/?L. The reference range was not used to interpret this result as normal/abnormal . HGB (test code = 10.2 g/dL 12.2-16.4 L 718-7) HCT (test code = 33.8 % 38.4-49.3 L 4544-3) MCV (test code = 80.7 fL 81.7-95.6 L 787-2) MCH (test code = 24.3 pg 26.1-32.7 L 785-6) MCHC (test code = 30.2 g/dL 31.2-35.0 L 786-4) RDW-SD (test code = 56.7 fL 38.5-51.6 H 96722-3) RDW-CV (test code = 19.3 % 12.1-15.4 H 788-0) PLT (test code = See_Comment [Automated 777-3) message] The sy stem which generated this result transmitted reference range : 150 - 328 10*3/ ?L. The reference r fernando was not used to interpret this result as normal/abnormal . MPV (test code = 9.6 fL 9.8-13.0 L 02409-2) NRBC/100 WBC (test See_Comment [Automat ed code = 0869165814) message] The system which generated this result transmitted reference range : 0.0 - 10.0 /100 WBCs. The refer ence range was not u sed to interpret th is result as normal/abnormal . NRBC x10^3 (test code <0.01 See_Comment [Auto mated = 1736952140) message] The s ystem which generated this result transmitted reference range : 10*3/?L. The reference range was not used to interpret this result as normal/abnormal . GRAN MAT (NEUT) % 80.1 % (test code = 770-8) IMM GRAN % (test code 0.70 % = 6765770642) LYMPH % (test code = 10.5 % 736-9) MONO % (test code = 8.5 % 5905-5) EOS % (test code = 0.1 % 713-8) BASO % (test code = 0.1 % 706-2) GRAN MAT x10^3(ANC) 5.61 10*3/uL 1.99-6.95 (test code = 7762418183) IMM GRAN x10^3 (test 0.05 10*3/uL 0.00-0.06 code = 2916974485) LYMPH x10^3 (test code 0.74 10*3/uL 1.09-3.23 L = 731-0) MONO x10^3 (test code 0.60 10*3/uL 0.36-1.02 = 742-7) EOS x10^3 (test code = <0.03 0.06-0.53 L 711-2) BASO x10^3 (test code <0.03 0.01-0.09 = 704-7) Lab Interpretation Abnormal (test code = 55266-9) [facility] [id number] 11:18:57 Test Item Value Reference Range Interpretation Comments NT-proBNP (test code 2910 pg/mL See_Comment H [Autom ated = 5102845014) message] The system which generated this result transmitted reference range : <=125. The reference range was not used to interpret this result as normal/abnormal . HAVEN (test code = HAVEN) Biotin has been reported to cause a negative bias, interpret results relative to patient's use of biotin. Lab Interpretation Abnormal (test code = 47338-8) [facility] [id number] 11:18:57 Test Item Value Reference Range Interpretation Comments NT-proBNP (test code 2910 pg/mL See_Comment H [Autom ated = 4439752552) message] The system which generated this result transmitted reference range : <=125. The reference range was not used to interpret this result as normal/abnormal . HAVEN (test code = HAVEN) Biotin has been reported to cause a negative bias, interpret results relative to patient's use of biotin. Lab Interpretation Abnormal (test code = 54106-6) [facility] 11:16:35 Test Item Value Reference Range Interpretation Comments MAGNESIUM (test code = 2143865940) 1.3 mg/dL 1.7-2.4 L Lab Interpretation (test code = Abnormal 80470-0) [facility] 11:16:35 Test Item Value Reference Range Interpretation Comments MAGNESIUM (test code = 5535699573) 1.3 mg/dL 1.7-2.4 L Lab Interpretation (test code = Abnormal 13998-1) [facility]. METABOLIC PANEL ([id number])2021-01-27 11:16:15 Test Item Value Reference Range Interpretation Comments NA (test code = 139 mmol/L 135-145 0267040961) K (test code = 3.6 mmol/L 3.5-5.0 2326506436) CL (test code = 95 mmol/L 98-108 L 6485771845) CO2 TOTAL (test code = 39 mmol/L 23-31 H 0389262010) AGAP (test code = 2-16 9916540183) BUN (test code = 52 mg/dL 7-23 H 5040645318) GLUCOSE (test code = 96 mg/dL 70-110 1622822127) CREATININE (test code = 1.10 mg/dL 0.60-1.25 6879672536) TOTAL BILI (test code = 1.0 mg/dL 0.1-1.0 9327759595) CALCIUM (test code = 8.9 mg/dL 8.6-10.6 9719249212) T PROTEIN (test code = 7.0 g/dL 6.3-8.2 0564170165) ALBUMIN (test code = 3.2 g/dL 3.5-5.0 L 5251078632) ALK PHOS (test code = 232 U/L 34-122 H 7536904046) ALTv (test code = 38 U/L 5-50 1742-6) AST(SGOT) (test code = 47 U/L 13-40 H 3520054791) eGFR (test code = mL/min/1.73m2 3875055457) HAVEN (test code = HAVEN) Association of Glomerular Filtration Rate (GFR) and Staging of Kidney Disease* + --+ --+ ------+| GFR (mL/min/1.73 m2) ?| With Kidney Damage ?| ?Without Kidney Damage+ --------+ --------+ +| ?>90 ?| ?Stage one ?| ? Normal ?+ ---+ ---+ -------+| ?60-89 ?| ?Stage two ?| ? Decreased GFR ? + --+ --+ ------+| ?30-59 ?| ?Stage three ?| ? Stage three ? + --+ --+ ------+| ?15-29 ?| ?Stage four ? | ? Stage four ?+ ---+ ---+ -------+| ?<15 (or dialysis) ? ?| ?Stage five ? | ? Stage five ?+ ---+ ---+ -------+ *Each stage assumes the associated GFR level has been in effect for at least three months. ?Stages 1 to 5, with or without kidney disease, indicate chronic kidney disease. Notes: Determination of stages one and two (with eGFR >59mL/min/1.73 m2) requires estimation of kidney damage for at least three months as defined by structural or functional abnormalities of the kidney, manifested by either:Pathological abnormalities or Markers of kidney damage (including abnormalities in the composition of the blood or urine or abnormalities in imaging tests). Lab Interpretation Abnormal (test code = 76558-4) [facility] 11:16:15 Test Item Value Reference Range Interpretation Comments PHOSPHORUS (test code = 4309049447) 2.3 mg/dL 2.5-5.0 L Lab Interpretation (test code = Abnormal 97945-3) [facility] METABOLIC PANEL ([id number])2021-01-27 11:16:15 Test Item Value Reference Range Interpretation Comments NA (test code = 139 mmol/L 135-145 7378206661) K (test code = 3.6 mmol/L 3.5-5.0 4271355469) CL (test code = 95 mmol/L 98-108 L 5399842375) CO2 TOTAL (test code = 39 mmol/L 23-31 H 2392768737) AGAP (test code = 2-16 7403448413) BUN (test code = 52 mg/dL 7-23 H 2050799554) GLUCOSE (test code = 96 mg/dL 70-110 8522167182) CREATININE (test code = 1.10 mg/dL 0.60-1.25 3870821454) TOTAL BILI (test code = 1.0 mg/dL 0.1-1.5 5345200730) CALCIUM (test code = 8.9 mg/dL 8.6-10.6 9229613015) T PROTEIN (test code = 7.0 g/dL 6.3-8.2 5181863036) ALBUMIN (test code = 3.2 g/dL 3.5-5.0 L 9394809641) ALK PHOS (test code = 232 U/L 34-122 H 4663524084) ALTv (test code = 38 U/L 5-50 1742-6) AST(SGOT) (test code = 47 U/L 13-40 H 1675319819) eGFR (test code = mL/min/1.73m2 0226888379) HAVEN (test code = HAVEN) Association of Glomerular Filtration Rate (GFR) and Staging of Kidney Disease* + --+ --+ ------+| GFR (mL/min/1.73 m2) ?| With Kidney Damage ?| ?Without Kidney Damage+ --------+ --------+ +| ?>90 ?| ?Stage one ?| ? Normal ?+ ---+ ---+ -------+| ?60-89 ?| ?Stage two ?| ? Decreased GFR ? + --+ --+ ------+| ?30-59 ?| ?Stage three ?| ? Stage three ? + --+ --+ ------+| ?15-29 ?| ?Stage four ? | ? Stage four ?+ ---+ ---+ -------+| ?<15 (or dialysis) ? ?| ?Stage five ? | ? Stage five ?+ ---+ ---+ -------+ *Each stage assumes the associated GFR level has been in effect for at least three months. ?Stages 1 to 5, with or without kidney disease, indicate chronic kidney disease. Notes: Determination of stages one and two (with eGFR >59mL/min/1.73 m2) requires estimation of kidney damage for at least three months as defined by structural or functional abnormalities of the kidney, manifested by either:Pathological abnormalities or Markers of kidney damage (including abnormalities in the composition of the blood or urine or abnormalities in imaging tests). Lab Interpretation Abnormal (test code = 64724-9) [facility] 11:16:15 Test Item Value Reference Range Interpretation Comments PHOSPHORUS (test code = 8839856115) 2.3 mg/dL 2.5-5.0 L Lab Interpretation (test code = Abnormal 56693-1) [facility] Level - Draw no more than 60 minutes before the 1400 dose.2021-01-26 19:52:18 Test Item Value Reference Range Interpretation Comments VANCO TROUGH (test code 23.6 ug/mL 10.0-20.0 H = 7491810071) HAVEN (test code = HAVEN) Toxic Range: ?>20 ug/mL 15-20 ug/mL is recommended for severe infection or when Vancomycin KO is greater than or equal to 2. Lab Interpretation (test Abnormal code = 98350-2) [facility] - Draw no more than 60 minutes before the 1400 dose.2021-01-26 19:52:18 Test Item Value Reference Range Interpretation Comments VANCO TROUGH (test code 23.6 ug/mL 10.0-20.0 H = 7297184732) HAVEN (test code = HAVEN) Toxic Range: ?>20 ug/mL 15-20 ug/mL is recommended for severe infection or when Vancomycin KO is greater than or equal to 2. Lab Interpretation (test Abnormal code = 94369-1) [facility] acute hospital WITH [id number] 12:06:34 Test Item Value Reference Range Interpretation Comments WBC (test code = See_Comment H [Automated 3690-2) message] The system which generated this result transmit josé antonio reference range : 4.20 - 10.70 10*3/?L. The reference range was not used to interpret this result as normal/abnormal . RBC (test code = See_Comment L [Automated 429-8) message] The system which generated this result transmit josé antonio reference range : 4.26 - 5.52 10*6/?L. The reference range was not used to interpret this result as normal/abnormal . HGB (test code = 9.7 g/dL 12.2-16.4 L 718-7) HCT (test code = 32.3 % 38.4-49.3 L 4544-3) MCV (test code = 79.8 fL 81.7-95.6 L 787-2) MCH (test code = 24.0 pg 26.1-32.7 L 785-6) MCHC (test code = 30.0 g/dL 31.2-35.0 L 786-4) RDW-SD (test code = 57.1 fL 38.5-51.6 H 58378-3) RDW-CV (test code = 19.6 % 12.1-15.4 H 788-0) PLT (test code = See_Comment L [Automated 777-3) message] The system which generated this result transmit josé antonio reference range : 150 - 328 10*3/ ?L. The reference range was not u sed to interpret th is result as normal/abnormal . MPV (test code = 9.0 fL 9.8-13.0 L 08354-6) NRBC/100 WBC (test See_Comment [Automat ed code = 8778426599) message] The system which generated this result transmit josé antonio reference range : 0.0 - 10.0 /100 WBCs. The reference range was not used to interpret this result as normal/abnormal . NRBC x10^3 (test code <0.01 See_Comment [Auto mated = 6417466927) message] The system which generated this result transmit josé antonio reference range : 10*3/?L. The reference range was not used to interpret this result as normal/abnormal . GRAN MAT (NEUT) % 93.0 % (test code = 770-8) IMM GRAN % (test code 0.60 % = 4187314840) LYMPH % (test code = 3.1 % 736-9) MONO % (test code = 3.2 % 5905-5) EOS % (test code = 0.0 % 713-8) BASO % (test code = 0.1 % 706-2) GRAN MAT x10^3(ANC) 14.05 10*3/uL 1.99-6.95 H (test code = 0381202825) IMM GRAN x10^3 (test 0.09 10*3/uL 0.00-0.06 H code = 3767707290) LYMPH x10^3 (test code 0.47 10*3/uL 1.09-3.23 L = 731-0) MONO x10^3 (test code 0.49 10*3/uL 0.36-1.02 = 742-7) EOS x10^3 (test code = <0.03 0.06-0.53 L 711-2) BASO x10^3 (test code <0.03 0.01-0.09 = 704-7) ELLIPTO/OVAL (test 2+ See_Comment A [Automat ed code = 17769-7) message] The system which generated this result transmit josé antonio reference range : (none). The reference range was not used to interpret this result as normal/abnormal . ROULEAUX (test code = Present See_Comment A [Auto mated 7797-4) message] The system which generated this result transmit josé antonio reference range : (none). The reference range was not used to interpret this result as normal/abnormal . DOHLE BODIES (test Present A code = 7792-5) REACT LYMPHS (test Rare code = 1484871635) TOXIC CHANGES (test Present A code = 803-7) Lab Interpretation Abnormal (test code = 76157-8) General acute hospital WITH [id number] 12:06:34 Test Item Value Reference Range Interpretation Comments WBC (test code = See_Comment H [Automated 5190-2) message] The system which generated this result transmit josé antonio reference range : 4.20 - 10.70 10*3/?L. The reference range was not used to interpret this result as normal/abnormal . RBC (test code = See_Comment L [Automated 789-8) message] The system which generated this result transmit josé antonio reference range : 4.26 - 5.52 10*6/?L. The reference range was not used to interpret this result as normal/abnormal . HGB (test code = 9.7 g/dL 12.2-16.4 L 718-7) HCT (test code = 32.3 % 38.4-49.3 L 4544-3) MCV (test code = 79.8 fL 81.7-95.6 L 787-2) MCH (test code = 24.0 pg 26.1-32.7 L 785-6) MCHC (test code = 30.0 g/dL 31.2-35.0 L 786-4) RDW-SD (test code = 57.1 fL 38.5-51.6 H 21730-5) RDW-CV (test code = 19.6 % 12.1-15.4 H 788-0) PLT (test code = See_Comment L [Automated 777-3) message] The system which generated this result transmit josé antonio reference range : 150 - 328 10*3/ ?L. The reference range was not u sed to interpret th is result as normal/abnormal . MPV (test code = 9.0 fL 9.8-13.0 L 62137-6) NRBC/100 WBC (test See_Comment [Automat ed code = 2957814671) message] The system which generated this result transmit josé antonio reference range : 0.0 - 10.0 /100 WBCs. The reference range was not used to interpret this result as normal/abnormal . NRBC x10^3 (test code <0.01 See_Comment [Auto mated = 2837434892) message] The system which generated this result transmit josé antonio reference range : 10*3/?L. The reference range was not used to interpret this result as normal/abnormal . GRAN MAT (NEUT) % 93.0 % (test code = 770-8) IMM GRAN % (test code 0.60 % = 9349669028) LYMPH % (test code = 3.1 % 736-9) MONO % (test code = 3.2 % 5905-5) EOS % (test code = 0.0 % 713-8) BASO % (test code = 0.1 % 706-2) GRAN MAT x10^3(ANC) 14.05 10*3/uL 1.99-6.95 H (test code = 0666476068) IMM GRAN x10^3 (test 0.09 10*3/uL 0.00-0.06 H code = 1391571261) LYMPH x10^3 (test code 0.47 10*3/uL 1.09-3.23 L = 731-0) MONO x10^3 (test code 0.49 10*3/uL 0.36-1.02 = 742-7) EOS x10^3 (test code = <0.03 0.06-0.53 L 711-2) BASO x10^3 (test code <0.03 0.01-0.09 = 704-7) ELLIPTO/OVAL (test 2+ See_Comment A [Automat ed code = 38749-7) message] The system which generated this result transmit josé antonio reference range : (none). The reference range was not used to interpret this result as normal/abnormal . ROULEAUX (test code = Present See_Comment A [Auto mated 7797-4) message] The system which generated this result transmit josé antonio reference range : (none). The reference range was not used to interpret this result as normal/abnormal . DOHLE BODIES (test Present A code = 7792-5) REACT LYMPHS (test Rare code = 5352524334) TOXIC CHANGES (test Present A code = 803-7) Lab Interpretation Abnormal (test code = 05617-5) [facility] [id number] 11:23:39 Test Item Value Reference Range Interpretation Comments NT-proBNP (test code 5050 pg/mL See_Comment H [Autom ated = 7486698810) message] The system which generated this result transmitted reference range : <=125. The reference range was not used to interpret this result as normal/abnormal . HAVEN (test code = HAVEN) Biotin has been reported to cause a negative bias, interpret results relative to patient's use of biotin. Lab Interpretation Abnormal (test code = 47308-4) [facility] [id number] 11:23:39 Test Item Value Reference Range Interpretation Comments NT-proBNP (test code 5050 pg/mL See_Comment H [Autom ated = 4649318964) message] The system which generated this result transmitted reference range : <=125. The reference range was not used to interpret this result as normal/abnormal . HAVEN (test code = HAVEN) Biotin has been reported to cause a negative bias, interpret results relative to patient's use of biotin. Lab Interpretation Abnormal (test code = 03536-9) [facility] 11:20:57 Test Item Value Reference Range Interpretation Comments MAGNESIUM (test code = 2881644808) 2.1 mg/dL 1.7-2.4 Lab Interpretation (test code = Normal 89299-7) [facility] Test Item Value Reference Range Interpretation Comments MAGNESIUM (test code = 5538389307) 2.1 mg/dL 1.7-2.4 Lab Interpretation (test code = Normal 37088-2) [facility]. METABOLIC PANEL (82892)2021-01-26 11:20:37 Test Item Value Reference Range Interpretation Comments NA (test code = 142 mmol/L 135-145 9347997236) K (test code = 3.3 mmol/L 3.5-5.0 L 7028901419) CL (test code = 102 mmol/L 98-108 4700043688) CO2 TOTAL (test code = 32 mmol/L 23-31 H 4278154685) AGAP (test code = 2-16 3161625172) BUN (test code = 47 mg/dL 7-23 H 1296306423) GLUCOSE (test code = 114 mg/dL 70-110 H 5974168709) CREATININE (test code = 1.37 mg/dL 0.60-1.25 H 9290026122) TOTAL BILI (test code = 1.1 mg/dL 0.1-1.0 2849303192) CALCIUM (test code = 8.7 mg/dL 8.6-10.6 8599019751) T PROTEIN (test code = 6.8 g/dL 6.3-8.2 1937258090) ALBUMIN (test code = 3.2 g/dL 3.5-5.0 L 5189243144) ALK PHOS (test code = 254 U/L 34-122 H 4222804416) ALTv (test code = 46 U/L 5-50 1742-6) AST(SGOT) (test code = 59 U/L 13-40 H 5324357088) eGFR (test code = mL/min/1.73m2 7616113902) HAVEN (test code = HAVEN) Association of Glomerular Filtration Rate (GFR) and Staging of Kidney Disease* + --+ --+ ------+| GFR (mL/min/1.73 m2) ?| With Kidney Damage ?| ?Without Kidney Damage+ --------+ --------+ +| ?>90 ?| ?Stage one ?| ? Normal ?+ ---+ ---+ -------+| ?60-89 ?| ?Stage two ?| ? Decreased GFR ? + --+ --+ ------+| ?30-59 ?| ?Stage three ?| ? Stage three ? + --+ --+ ------+| ?15-29 ?| ?Stage four ? | ? Stage four ?+ ---+ ---+ -------+| ?<15 (or dialysis) ? ?| ?Stage five ? | ? Stage five ?+ ---+ ---+ -------+ *Each stage assumes the associated GFR level has been in effect for at least three months. ?Stages 1 to 5, with or without kidney disease, indicate chronic kidney disease. Notes: Determination of stages one and two (with eGFR >59mL/min/1.73 m2) requires estimation of kidney damage for at least three months as defined by structural or functional abnormalities of the kidney, manifested by either:Pathological abnormalities or Markers of kidney damage (including abnormalities in the composition of the blood or urine or abnormalities in imaging tests). Lab Interpretation Abnormal (test code = 64911-5) [facility] 11:20:37 Test Item Value Reference Range Interpretation Comments PHOSPHORUS (test code = 1489637523) 3.7 mg/dL 2.5-5.0 Lab Interpretation (test code = Normal 48034-7) [facility]OL[facility] (03496)2021-01-26 11:20:37 Test Item Value Reference Range Interpretation Comments NA (test code = 142 mmol/L 135-145 2149582683) K (test code = 3.3 mmol/L 3.5-5.0 L 1541421145) CL (test code = 102 mmol/L 98-108 8021948278) CO2 TOTAL (test code = 32 mmol/L 23-31 H 7571026856) AGAP (test code = 2-16 8144129926) BUN (test code = 47 mg/dL 7-23 H 6609905617) GLUCOSE (test code = 114 mg/dL 70-110 H 6834029424) CREATININE (test code = 1.37 mg/dL 0.60-1.25 H 9835134229) TOTAL BILI (test code = 1.1 mg/dL 0.1-1.0 4001620911) CALCIUM (test code = 8.7 mg/dL 8.6-10.6 8084816863) T PROTEIN (test code = 6.8 g/dL 6.3-8.2 3158006003) ALBUMIN (test code = 3.2 g/dL 3.5-5.0 L 4141518077) ALK PHOS (test code = 254 U/L 34-122 H 4034208903) ALTv (test code = 46 U/L 5-50 1742-6) AST(SGOT) (test code = 59 U/L 13-40 H 0963371944) eGFR (test code = mL/min/1.73m2 9869987667) HAVEN (test code = HAVEN) Association of Glomerular Filtration Rate (GFR) and Staging of Kidney Disease* + --+ --+ ------+| GFR (mL/min/1.73 m2) ?| With Kidney Damage ?| ?Without Kidney Damage+ --------+ --------+ +| ?>90 ?| ?Stage one ?| ? Normal ?+ ---+ ---+ -------+| ?60-89 ?| ?Stage two ?| ? Decreased GFR ? + --+ --+ ------+| ?30-59 ?| ?Stage three ?| ? Stage three ? + --+ --+ ------+| ?15-29 ?| ?Stage four ? | ? Stage four ?+ ---+ ---+ -------+| ?<15 (or dialysis) ? ?| ?Stage five ? | ? Stage five ?+ ---+ ---+ -------+ *Each stage assumes the associated GFR level has been in effect for at least three months. ?Stages 1 to 5, with or without kidney disease, indicate chronic kidney disease. Notes: Determination of stages one and two (with eGFR >59mL/min/1.73 m2) requires estimation of kidney damage for at least three months as defined by structural or functional abnormalities of the kidney, manifested by either:Pathological abnormalities or Markers of kidney damage (including abnormalities in the composition of the blood or urine or abnormalities in imaging tests). Lab Interpretation Abnormal (test code = 57204-7) [facility] 11:20:37 Test Item Value Reference Range Interpretation Comments PHOSPHORUS (test code = 2781388800) 3.7 mg/dL 2.5-5.0 Lab Interpretation (test code = Normal 30498-9) [facility] THORAX WO [id number] 00:54:06 1. ?Small to moderately sized left-sided pleural effusion with essentiallycomplete atelectasis of the left lower lobe and partial atelectasis of theinferior aspect of the left upper lobe. Some associated leftwardmediastinal shift is seen.2. Patchy hazy infiltrates throughout the aerated right lung concerning geoff atypical multifocal pneumonia. Please correlate clinically. RL: 135 END OF REPORT ORDERING PHYSICIAN:MAX TADEO CLINICAL INFORMATION: ? Pneumonia, effusion or abscess suspected, xray done COMPARISON: None Technique: ? CT of the chest was performed without IV contrast. Multiplanarreformats were also obtained. This study was performed according to ALARAprinciple for radiation dose reduction. Findings: There is a smallto moderately sized left-sided pleural effusion. There iscomplete atelectasis of the right lower lobe with partial atelectasis ofthe lingula and inferior aspect of the left lower lobe. There is leftwardmediastinal shift associated with volume loss. There are some mild hazypatchy infiltrates seen throughout the otherwise well aerated right lung.There is no evidence of pneumothorax. No suspicious endobronchial lesionsare seen in the central airways. The heart is normal in size. There is nopericardial effusion. No pathologically enlarged lymph nodes are seen inthe mediastinum or walter. Limited visualization of the intra-abdominalstructures shows no evidence of acute abnormalities. No suspicious focalosseous lesions are seen. [facility], Radiant Results Inft User - 01/25/2021 7:55 PM CDT ORDERING PHYSICIAN:MAX FLORIAN CLINICAL INFORMATION: Pneumonia, effusion or abscess suspected, xray doneCOMPARISON: NoneTechnique: CT of the chest wasperformed without IV contrast. Multiplanarreformats were also obtained. This study was performed according to ALARAprinciple for radiation dose reduction.Findings:There is a small to moderately sized left-sided pleural effusion. There iscomplete atelectasis of the right lower lobe with partial atelectasis ofthe lingula and inferior aspect of the left lower lobe. There is leftwardmediastinal shift associated with volume loss. There are some mild hazypatchy infiltrates seen throughout the otherwise well aerated right lung.There is no evidence of pneumothorax. No suspicious endobronchial lesionsare seen in the central airways. The heart is normal in size. There is nopericardial effusion. No pathologically enlarged lymph nodes are seen inthe mediastinum or walter. Limited visualization of the intra-abdominalstructures shows no evidence of acute abnormalities. No suspicious focalosseous lesions are seen.IMPRESSION1. Small to moderately sized left-sided pleural effusion with essentiallycomplete atelectasis of the left lower lobe and partial atelectasis of theinferior aspect of the left upper lobe. Some associated leftwardmediastinal shift is seen.2. Patchy hazy infiltrates throughout the aerated right lung concerning geoff atypical multifocal pneumonia. Please correlate clinically.RL: 135END OF REPORT [facility] THORAX WO [id number] 00:54:06 1. ?Small to moderately sized left-sided pleural effusion with essentiallycomplete atelectasis of the left lower lobe and partial atelectasis of theinferior aspect of the left upper lobe. Some associat ed leftwardmediastinal shift is seen.2. Patchy hazy infiltrates throughout the aerated right lung concerning geoff atypical multifocal pneumonia. Please correlate clinically. RL: 135 END OF REPORT ORDERING PHYSICIAN:MAX TADEO CLINICAL INFORMATION: ? Pneumonia, effusion or abscess suspected, xray done COMPARISON: None Technique: ? CT of the chest was performed without IV contrast. Multiplanarreformats were also obtained. This study was performed according to ALARAprinciple for radiation dose reduction. Findings: There is a smallto moderately sized left-sided pleural effusion. There iscomplete atelectasis of the right lower lobe with partial atelectasis ofthe lingula and inferior aspect of the left lower lobe. There is leftwardmediastinal shift associated with volume loss. There are some mild hazypatchy infiltrates seen throughout the otherwise well aerated right lung.There is no evidence of pneumothorax. No suspicious endobronchial lesionsare seen in the central airways. The heart is normal in size. There is nopericardial effusion. No pathologically enlarged lymph nodes are seen inthe mediastinum or walter. Limited visualization of the intra-abdominalstructures shows no evidence of acute abnormalities. No suspicious focalosseous lesions are seen. [facility], Radiant Results Inft User - 01/25/2021 7:55 PM CDT ORDERING PHYSICIAN:MAX FLORIAN CLINICAL INFORMATION: Pneumonia, effusion or abscess suspected, xray doneCOMPARISON: NoneTechnique: CT of the chest wasperformed without IV contrast. Multiplanarreformats were also obtained. This study was performed according to ALARAprinciple for radiation dose reduction.Findings:There is a small to moderately sized left-sided pleural effusion. There iscomplete atelectasis of the right lower lobe with partial atelectasis ofthe lingula and inferior aspect of the left lower lobe. There is leftwardmediastinal shift associated with volume loss. There are some mild hazypatchy infiltrates seen throughout the otherwise well aerated right lung.There is no evidence of pneumothorax. No suspicious endobronchial lesionsare seen in the central airways. The heart is normal in size. There is nopericardial effusion. No pathologically enlarged lymph nodes are seen inthe mediastinum or walter. Limited visualization of the intra-abdominalstructures shows no evidence of acute abnormalities. No suspicious focalosseous lesions are seen.IMPRESSION1. Small to moderately sized left-sided pleural effusion with essentiallycomplete atelectasis of the left lower lobe and partial atelectasis of theinferior aspect of the left upper lobe. Some associated leftwardmediastinal shift is seen.2. Patchy hazy infiltrates throughout the aerated right lung concerning geoff atypical multifocal pneumonia. Please correlate clinically.RL: 135END OF REPORT [facility] (NA, K, CL, CO2, GLUCOSE, BUN, CREATININE, CA)2021-01-25 23:51:22 Test Item Value Reference Range Interpretation Comments NA (test code = 142 mmol/L 135-145 7435065852) K (test code = 2.6 mmol/L 3.5-5.0 LL 6200680437) CL (test code = 106 mmol/L 98-108 0892813546) CO2 TOTAL (test code = 27 mmol/L 23-31 5440198992) AGAP (test code = 2-16 8291699385) BUN (test code = 40 mg/dL 7-23 H 0073831857) GLUCOSE (test code = 112 mg/dL 70-110 H 9295155916) CREATININE (test code = 1.20 mg/dL 0.60-1.25 9997170851) CALCIUM (test code = 8.3 mg/dL 8.6-10.6 L 9289912383) eGFR (test code = mL/min/1.73m2 5562510347) HAVEN (test code = HAVEN) Association of Glomerular Filtration Rate (GFR) and Staging of Kidney Disease* + --+ --+ ------+| GFR (mL/min/1.73 m2) ?| With Kidney Damage ?| ?Without Kidney Damage+ --------+ --------+ +| ?>90 ?| ?Stage one ?| ? Normal ?+ ---+ ---+ -------+| ?60-89 ?| ?Stage two ?| ? Decreased GFR ? + --+ --+ ------+| ?30-59 ?| ?Stage three ?| ? Stage three ? + --+ --+ ------+| ?15-29 ?| ?Stage four ? | ? Stage four ?+ ---+ ---+ -------+| ?<15 (or dialysis) ? ?| ?Stage five ? | ? Stage five ?+ ---+ ---+ -------+ *Each stage assumes the associated GFR level has been in effect for at least three months. ?Stages 1 to 5, with or without kidney disease, indicate chronic kidney disease. Notes: Determination of stages one and two (with eGFR >59mL/min/1.73 m2) requires estimation of kidney damage for at least three months as defined by structural or functional abnormalities of the kidney, manifested by either:Pathological abnormalities or Markers of kidney damage (including abnormalities in the composition of the blood or urine or abnormalities in imaging tests). Lab Interpretation Abnormal (test code = 10876-5) [facility] METABOLIC PANEL (NA, K, CL, CO2, GLUCOSE, BUN, CREATININE, CA)2021-01-25 23:51:22 Test Item Value Reference Range Interpretation Comments NA (test code = 142 mmol/L 135-145 7283021685) K (test code = 2.6 mmol/L 3.5-5.0 LL 9020189569) CL (test code = 106 mmol/L 98-108 9883543386) CO2 TOTAL (test code = 27 mmol/L 23-31 7166293450) AGAP (test code = 2-16 6660035091) BUN (test code = 40 mg/dL 7-23 H 7357057344) GLUCOSE (test code = 112 mg/dL 70-110 H 0350441683) CREATININE (test code = 1.20 mg/dL 0.60-1.25 6519191629) CALCIUM (test code = 8.3 mg/dL 8.6-10.6 L 9759364543) eGFR (test code = mL/min/1.73m2 6225876585) HAVEN (test code = HAVEN) Association of Glomerular Filtration Rate (GFR) and Staging of Kidney Disease* + --+ --+ ------+| GFR (mL/min/1.73 m2) ?| With Kidney Damage ?| ?Without Kidney Damage+ --------+ --------+ +| ?>90 ?| ?Stage one ?| ? Normal ?+ ---+ ---+ -------+| ?60-89 ?| ?Stage two ?| ? Decreased GFR ? + --+ --+ ------+| ?30-59 ?| ?Stage three ?| ? Stage three ? + --+ --+ ------+| ?15-29 ?| ?Stage four ? | ? Stage four ?+ ---+ ---+ -------+| ?<15 (or dialysis) ? ?| ?Stage five ? | ? Stage five ?+ ---+ ---+ -------+ *Each stage assumes the associated GFR level has been in effect for at least three months. ?Stages 1 to 5, with or without kidney disease, indicate chronic kidney disease. Notes: Determination of stages one and two (with eGFR >59mL/min/1.73 m2) requires estimation of kidney damage for at least three months as defined by structural or functional abnormalities of the kidney, manifested by either:Pathological abnormalities or Markers of kidney damage (including abnormalities in the composition of the blood or urine or abnormalities in imaging tests). Lab Interpretation Abnormal (test code = 56894-0) [facility] 23:49:44 Test Item Value Reference Range Interpretation Comments MAGNESIUM (test code = 0396173783) 1.4 mg/dL 1.7-2.4 L Lab Interpretation (test code = Abnormal 21389-1) [facility] Test Item Value Reference Range Interpretation Comments MAGNESIUM (test code = 2040889945) 1.4 mg/dL 1.7-2.4 L Lab Interpretation (test code = Abnormal 96157-3) [facility] 14[facility]46 Test Item Value Reference Range Interpretation Comments Blood Culture-Aerobic Culture positive. No growth AA P revious (test code = 26901-3) See Blood prelim inary Culture Workup verified resu lt for additional was Culture I n information. Progress on 01/23/2021 at 070 2 CDT Blood Culture positive. No growth AA Previous Culture-Anaerobic See Blood preliminar y (test code = 08684-2) Culture Workup veri fied result for additional was Culture I n information. Progress on 01/23/2021 at 225 8 CDT Lab Interpretation Abnormal (test code = 74997-5) [facility] [id number] 14:42:46 Test Item Value Reference Range Interpretation Comments Blood Culture-Aerobic Culture positive. No growth AA P revious (test code = 05914-3) See Blood prelim inary Culture Workup verified resu lt for additional was Culture I n information. Progress on 01/23/2021 at 070 2 CDT Blood Culture positive. No growth AA Previous Culture-Anaerobic See Blood preliminar y (test code = 04889-6) Culture Workup veri fied result for additional was Culture I n information. Progress on 01/23/2021 at 225 8 CDT Lab Interpretation Abnormal (test code = 26092-5) [facility] CHEST 1 [id number] 13:22:28Near complete opacification of the left thorax likely due to acombination of pleural effusion and consolidation. This abnormality shouldbe followed to complete resolution with radiographic imaging to excludeunderlying mass and consolidated lung. Ordering physician: JAYA SMITH 4343 CLINICAL HISTORY: shortness of breath ? COMPARISON : January 24, 2021 ? FINDINGS: There is near complete opacification of the left thorax likelydue to a combination of large left pleural effusion and consolidation. Theleft heart border is obscured. Thereis no pneumothorax. [facility], Radiant Results Inft User - 01/25/2021 8:23 AM CDT CLINICAL HISTORY: shortness of breath COMPARISON: January 24, 2021 FINDINGS: There is near complete opacification of the left thorax likelydue to a combination of large left pleural effusion and consolidation. Theleft heart border is obscured. There is no pneumothorax. IMPRESSIONNear complete opacification of the left thorax likely due to acombination of pleural effusion and consolidation. This abnormality shouldbe followed to complete resolution with radiographic imaging to excludeunderlying mass and consolidated lung.Ordering physician: JAYA SMITH [id number] ectronically signed by Jesse Benton MD at 01/25/2021 8:22 AMB[facility]XR CHEST 1 [id number] 13:22:28Near complete opacification of the left thorax likely due to acombination of pleural effusion and con solidation. This abnormality shouldbe followed to complete resolution with radiographic imaging to excludeunderlying mass and consolidated lung. Ordering physician: JAYA TAVAREZ RL 4343 CLINICAL HISTORY: shortness of breath ? COMPARISON: January 24, 2021 ? FINDINGS: There is near complete opacification of the left thorax likelydue to a combination of large left pleural effusion and consolidation. Theleft heart border is obscured. Thereis no pneumothorax. [facility], Radiant Results Inft User - 01/25/2021 8:23 AM CDT CLINICAL HISTORY: shortness of breath COMPARISON: January 24, 2021 FINDINGS: There is near complete opacification of the left thorax likelydue to a combination of large left pleural effusion and consolidation. Theleft heart border is obscured. There is no pneumothorax. IMPRESSIONNear complete opacification of the left thorax likely due to acombination of pleural effusion and consolidation. This abnormality shouldbe followed to complete resolution with radiographic imaging to excludeunderlying mass and consolidated lung.Ordering physician: JAYA TAVAREZ [id number] ectronically signed by Jesse Benton MD at 01/25/2021 8:22 AMUnSouth [facility].2021-01-25 10:13:12 Test Item Value Reference Range Interpretation Comments PH (test code = 2) 7.35-7.45 PCO2 (test code = See_Comment [Automat ed message] 8165365846) The system [employer] generated this result transmitted ref erence range: 35 - 45 mmHg. The reference r fernando was not used to interpret this result as normal/abnor mal. PO2 (test code = See_Comment LL [Automated message] 9799637824) The system [employer] generated this result transmitted ref erence range: 80 - 100 mmHg. The reference r fernando was not used to interpret this result as normal/abnor mal. HCO3 (test code = See_Comment [Automate d message] 5798216675) The system [employer] generated this result transmitted ref erence range: 22 - 26 mEq/L. The reference r fernando was not used to interpret this result as normal/abnor mal. BE (test code = See_Comment [Automated message] 7590390767) The system [employer] generated this result transmitted ref erence range: -3.0 - 3 .0 mEq/L. The refe rence range was not u sed to interpret this result as normal/abnor mal. Lab Interpretation (test Abnormal code = 50832-4) [facility] Arterial Blood Gas.2021-01-25 10:13:12 Test Item Value Reference Range Interpretation Comments PH (test code = 2) 7.35-7.45 PCO2 (test code = See_Comment [Automat ed message] 2395370442) The system [employer] generated this result transmitted ref erence range: 35 - 45 mmHg. The reference r fernando was not used to interpret this result as normal/abnor mal. PO2 (test code = See_Comment LL [Automated message] 6969202265) The system [employer] generated this result transmitted ref erence range: 80 - 100 mmHg. The reference r fernando was not used to interpret this result as normal/abnor mal. HCO3 (test code = See_Comment [Automate d message] 1909023109) The system [employer] generated this result transmitted ref erence range: 22 - 26 mEq/L. The reference r fernando was not used to interpret this result as normal/abnor mal. BE (test code = See_Comment [Automated message] 3918576224) The system [employer] generated this result transmitted ref erence range: -3.0 - 3 .0 mEq/L. The refe rence range was not u sed to interpret this result as normal/abnor mal. Lab Interpretation (test Abnormal code = 80941-7) [facility] acute hospital WITH [id number] 09:34:42 Test Item Value Reference Range Interpretation Comments WBC (test code = See_Comment H [Automated 6690-2) message] The system which generated this result transmitted reference range : 4.20 - 10.70 10*3/?L. The reference range was not used to interpret this result as normal/abnormal . RBC (test code = See_Comment L [Automated 789-8) message] The system which generated this result transmitted reference range : 4.26 - 5.52 10*6/?L. The reference range was not used to interpret this result as normal/abnormal . HGB (test code = 9.7 g/dL 12.2-16.4 L 718-7) HCT (test code = 31.4 % 38.4-49.3 L 4544-3) MCV (test code = 79.5 fL 81.7-95.6 L 787-2) MCH (test code = 24.6 pg 26.1-32.7 L 785-6) MCHC (test code = 30.9 g/dL 31.2-35.0 L 786-4) RDW-SD (test code = 59.0 fL 38.5-51.6 H 86208-7) RDW-CV (test code = 20.2 % 12.1-15.4 H 788-0) PLT (test code = See_Comment L [Automated 777-3) message] The system which generated this result transmitted reference range : 150 - 328 10*3/?L. The reference range was not used to interpret this result as normal/abnormal . MPV (test code = 9.5 fL 9.8-13.0 L 19443-7) NRBC/100 WBC (test See_Comment [Automat ed code = 8910842216) message] The system which generated this result transmitted reference range : 0.0 - 10.0 /100 WBCs. The reference range was not used to interpret this result as normal/abnormal . NRBC x10^3 (test code <0.01 See_Comment [Auto mated = 6403546039) message] The system which generated this result transmitted reference range : 10*3/?L. The reference range was not used to interpret this result as normal/abnormal . GRAN MAT (NEUT) % 94.8 % (test code = 770-8) IMM GRAN % (test code 0.30 % = 6874085646) LYMPH % (test code = 3.6 % 736-9) MONO % (test code = 1.0 % 5905-5) EOS % (test code = 0.0 % 713-8) BASO % (test code = 0.3 % 706-2) GRAN MAT x10^3(ANC) 10.69 10*3/uL 1.99-6.95 H (test code = 4984266713) IMM GRAN x10^3 (test 0.03 10*3/uL 0.00-0.06 code = 3664491196) LYMPH x10^3 (test 0.41 10*3/uL 1.09-3.23 L code = 731-0) MONO x10^3 (test code 0.11 10*3/uL 0.36-1.02 L = 742-7) EOS x10^3 (test code <0.03 0.06-0.53 L = 711-2) BASO x10^3 (test code 0.03 10*3/uL 0.01-0.09 = 704-7) ZANDRA CELLS (test code 2+ See_Comment A [Auto mated = 6290-9) message] The system which generated this result transmitted reference range : (none). The reference range was not used to interpret this result as normal/abnormal . ELLIPTO/OVAL (test 2+ See_Comment A [Automat ed code = 73974-2) message] The system which generated this result transmitted reference range : (none). The reference range was not used to interpret this result as normal/abnormal . POLYCHROMASIA (test 2+ See_Comment [Automa josé antonio code = 42978-7) message] The system which generated this result transmitted reference range : 2+. The referen ce range was not used to interpr et this result as normal/abnormal . ROULEAUX (test code = Present See_Comment A [Auto mated 7797-4) message] The system which generated this result transmitted reference range : (none). The reference range was not used to interpret this result as normal/abnormal . BANDS (test code = MARKED INCREASED A 5478088437) DOHLE BODIES (test Present A code = 7792-5) TOXIC CHANGES (test Present A code = 803-7) Lab Interpretation Abnormal (test code = 18416-6) General acute hospital WITH [id number] 09:34:42 Test Item Value Reference Range Interpretation Comments WBC (test code = See_Comment H [Automated 9690-2) message] The system which generated this result transmitted reference range : 4.20 - 10.70 10*3/?L. The reference range was not used to interpret this result as normal/abnormal . RBC (test code = See_Comment L [Automated 169-8) message] The system which generated this result transmitted reference range : 4.26 - 5.52 10*6/?L. The reference range was not used to interpret this result as normal/abnormal . HGB (test code = 9.7 g/dL 12.2-16.4 L 718-7) HCT (test code = 31.4 % 38.4-49.3 L 4544-3) MCV (test code = 79.5 fL 81.7-95.6 L 787-2) MCH (test code = 24.6 pg 26.1-32.7 L 785-6) MCHC (test code = 30.9 g/dL 31.2-35.0 L 786-4) RDW-SD (test code = 59.0 fL 38.5-51.6 H 97995-2) RDW-CV (test code = 20.2 % 12.1-15.4 H 788-0) PLT (test code = See_Comment L [Automated 777-3) message] The system which generated this result transmitted reference range : 150 - 328 10*3/?L. The reference range was not used to interpret this result as normal/abnormal . MPV (test code = 9.5 fL 9.8-13.0 L 60568-0) NRBC/100 WBC (test See_Comment [Automat ed code = 1222438202) message] The system which generated this result transmitted reference range : 0.0 - 10.0 /100 WBCs. The reference range was not used to interpret this result as normal/abnormal . NRBC x10^3 (test code <0.01 See_Comment [Auto mated = 8102363667) message] The system which generated this result transmitted reference range : 10*3/?L. The reference range was not used to interpret this result as normal/abnormal . GRAN MAT (NEUT) % 94.8 % (test code = 770-8) IMM GRAN % (test code 0.30 % = 3224096248) LYMPH % (test code = 3.6 % 736-9) MONO % (test code = 1.0 % 5905-5) EOS % (test code = 0.0 % 713-8) BASO % (test code = 0.3 % 706-2) GRAN MAT x10^3(ANC) 10.69 10*3/uL 1.99-6.95 H (test code = 9389861681) IMM GRAN x10^3 (test 0.03 10*3/uL 0.00-0.06 code = 0860969601) LYMPH x10^3 (test 0.41 10*3/uL 1.09-3.23 L code = 731-0) MONO x10^3 (test code 0.11 10*3/uL 0.36-1.02 L = 742-7) EOS x10^3 (test code <0.03 0.06-0.53 L = 711-2) BASO x10^3 (test code 0.03 10*3/uL 0.01-0.09 = 704-7) ZANDRA CELLS (test code 2+ See_Comment A [Auto mated = 4540-9) message] The system which generated this result transmitted reference range : (none). The reference range was not used to interpret this result as normal/abnormal . ELLIPTO/OVAL (test 2+ See_Comment A [Automat ed code = 80611-8) message] The system which generated this result transmitted reference range : (none). The reference range was not used to interpret this result as normal/abnormal . POLYCHROMASIA (test 2+ See_Comment [Automa josé antonio code = 47088-3) message] The system which generated this result transmitted reference range : 2+. The referen ce range was not used to interpr et this result as normal/abnormal . ROULEAUX (test code = Present See_Comment A [Auto mated 9797-4) message] The system which generated this result transmitted reference range : (none). The reference range was not used to interpret this result as normal/abnormal . BANDS (test code = MARKED INCREASED A 9694912629) DOHLE BODIES (test Present A code = 7792-5) TOXIC CHANGES (test Present A code = 803-7) Lab Interpretation Abnormal (test code = 10530-7) [facility]-TERMINAL [id number] 08:59:54 Test Item Value Reference Range Interpretation Comments NT-proBNP (test code 3800 pg/mL See_Comment H [Autom ated = 0558126126) message] The system which generated this result transmitted reference range : <=125. The reference range was not used to interpret this result as normal/abnormal . HAVEN (test code = HAVEN) Biotin has been reported to cause a negative bias, interpret results relative to patient's use of biotin. Lab Interpretation Abnormal (test code = 02661-1) [facility] [id number] 08:59:54 Test Item Value Reference Range Interpretation Comments NT-proBNP (test code 3800 pg/mL See_Comment H [Autom ated = 5155637262) message] The system which generated this result transmitted reference range : <=125. The reference range was not used to interpret this result as normal/abnormal . HAVEN (test code = HAVEN) Biotin has been reported to cause a negative bias, interpret results relative to patient's use of biotin. Lab Interpretation Abnormal (test code = 84132-7) [facility] 08:52:34 Test Item Value Reference Range Interpretation Comments MAGNESIUM (test code = 2924552165) 1.4 mg/dL 1.7-2.4 L Lab Interpretation (test code = Abnormal 50626-9) [facility] 08:52:34 Test Item Value Reference Range Interpretation Comments MAGNESIUM (test code = 8322975215) 1.4 mg/dL 1.7-2.4 L Lab Interpretation (test code = Abnormal 36778-2) [facility] METABOLIC PANEL (65013)2021-01-25 08:52:13 Test Item Value Reference Range Interpretation Comments NA (test code = 141 mmol/L 135-145 5167373542) K (test code = 3.1 mmol/L 3.5-5.0 L 8163834158) CL (test code = 108 mmol/L 98-108 7262088554) CO2 TOTAL (test code = 26 mmol/L 23-31 0821326333) AGAP (test code = 2-16 4416044565) BUN (test code = 39 mg/dL 7-23 H 9628886928) GLUCOSE (test code = 91 mg/dL 70-110 3610733915) CREATININE (test code = 1.05 mg/dL 0.60-1.25 3140015276) TOTAL BILI (test code = 1.3 mg/dL 0.1-1.1 H 1791733745) CALCIUM (test code = 7.9 mg/dL 8.6-10.6 L 3797791074) T PROTEIN (test code = 6.2 g/dL 6.3-8.2 L 7883649100) ALBUMIN (test code = 3.0 g/dL 3.5-5.0 L 5781459063) ALK PHOS (test code = 191 U/L 34-122 H 1020289672) ALTv (test code = 54 U/L 5-50 H 1742-6) AST(SGOT) (test code = 69 U/L 13-40 H 9713292418) eGFR (test code = mL/min/1.73m2 1140600334) HAVEN (test code = HAVEN) Association of Glomerular Filtration Rate (GFR) and Staging of Kidney Disease* + --+ --+ ------+| GFR (mL/min/1.73 m2) ?| With Kidney Damage ?| ?Without Kidney Damage+ --------+ --------+ +| ?>90 ?| ?Stage one ?| ? Normal ?+ ---+ ---+ -------+| ?60-89 ?| ?Stage two ?| ? Decreased GFR ? + --+ --+ ------+| ?30-59 ?| ?Stage three ?| ? Stage three ? + --+ --+ ------+| ?15-29 ?| ?Stage four ? | ? Stage four ?+ ---+ ---+ -------+| ?<15 (or dialysis) ? ?| ?Stage five ? | ? Stage five ?+ ---+ ---+ -------+ *Each stage assumes the associated GFR level has been in effect for at least three months. ?Stages 1 to 5, with or without kidney disease, indicate chronic kidney disease. Notes: Determination of stages one and two (with eGFR >59mL/min/1.73 m2) requires estimation of kidney damage for at least three months as defined by structural or functional abnormalities of the kidney, manifested by either:Pathological abnormalities or Markers of kidney damage (including abnormalities in the composition of the blood or urine or abnormalities in imaging tests). Lab Interpretation Abnormal (test code = 75568-6) [facility]. METABOLIC PANEL (18781)2021-01-25 08:52:13 Test Item Value Reference Range Interpretation Comments NA (test code = 141 mmol/L 135-145 3993005587) K (test code = 3.1 mmol/L 3.5-5.0 L 7518465128) CL (test code = 108 mmol/L 98-108 5616192369) CO2 TOTAL (test code = 26 mmol/L 23-31 3415886341) AGAP (test code = 2-16 1834222168) BUN (test code = 39 mg/dL 7-23 H 6872813868) GLUCOSE (test code = 91 mg/dL 70-110 0992748008) CREATININE (test code = 1.05 mg/dL 0.60-1.25 2238673728) TOTAL BILI (test code = 1.3 mg/dL 0.1-1.1 H 6914780263) CALCIUM (test code = 7.9 mg/dL 8.6-10.6 L 6801519538) T PROTEIN (test code = 6.2 g/dL 6.3-8.2 L 9259219533) ALBUMIN (test code = 3.0 g/dL 3.5-5.0 L 3144635256) ALK PHOS (test code = 191 U/L 34-122 H 9049137500) ALTv (test code = 54 U/L 5-50 H 1742-6) AST(SGOT) (test code = 69 U/L 13-40 H 9125235565) eGFR (test code = mL/min/1.73m2 2047491309) HAVEN (test code = HAVEN) Association of Glomerular Filtration Rate (GFR) and Staging of Kidney Disease* + --+ --+ ------+| GFR (mL/min/1.73 m2) ?| With Kidney Damage ?| ?Without Kidney Damage+ --------+ --------+ +| ?>90 ?| ?Stage one ?| ? Normal ?+ ---+ ---+ -------+| ?60-89 ?| ?Stage two ?| ? Decreased GFR ? + --+ --+ ------+| ?30-59 ?| ?Stage three ?| ? Stage three ? + --+ --+ ------+| ?15-29 ?| ?Stage four ? | ? Stage four ?+ ---+ ---+ -------+| ?<15 (or dialysis) ? ?| ?Stage five ? | ? Stage five ?+ ---+ ---+ -------+ *Each stage assumes the associated GFR level has been in effect for at least three months. ?Stages 1 to 5, with or without kidney disease, indicate chronic kidney disease. Notes: Determination of stages one and two (with eGFR >59mL/min/1.73 m2) requires estimation of kidney damage for at least three months as defined by structural or functional abnormalities of the kidney, manifested by either:Pathological abnormalities or Markers of kidney damage (including abnormalities in the composition of the blood or urine or abnormalities in imaging tests). Lab Interpretation Abnormal (test code = 17089-7) [facility] Whole [id number] 07:43:33 Test Item Value Reference Range Interpretation Comments LACTIC ACID (test code = 1.50 mmol/L 0.50-2.20 7349527287) Lab Interpretation (test code = Normal 32658-4) [facility] Temple[facility] Whole [id number] 07:43:33 Test Item Value Reference Range Interpretation Comments LACTIC ACID (test code = 1.50 mmol/L 0.50-2.20 7051423261) Lab Interpretation (test code = Normal 08934-2) [facility] Arterial Blood Gas. Please include lactic [id number] 07:42:42 Test Item Value Reference Range Interpretation Comments PH (test code = 2) 7.35-7.45 PCO2 (test code = See_Comment [Automat ed message] 4917929951) The system [employer] generated this result transmitted ref erence range: 35 - 45 mmHg. The reference r fernando was not used to interpret this result as normal/abnor mal. PO2 (test code = See_Comment L [Automated message] 9586742419) The system [employer] generated this result transmitted ref erence range: 80 - 100 mmHg. The reference r fernando was not used to interpret this result as normal/abnor mal. HCO3 (test code = See_Comment [Automate d message] 3922726514) The system [employer] generated this result transmitted ref erence range: 22 - 26 mEq/L. The reference r fernando was not used to interpret this result as normal/abnor mal. BE (test code = See_Comment [Automated message] 5940271488) The system [employer] generated this result transmitted ref erence range: -3.0 - 3 .0 mEq/L. The refe rence range was not u sed to interpret this result as normal/abnor mal. Lab Interpretation (test Abnormal code = 49719-3) [facility] Arterial Blood Gas. Please include lactic [id number] 07:42:42 Test Item Value Reference Range Interpretation Comments PH (test code = 2) 7.35-7.45 PCO2 (test code = See_Comment [Automat ed message] 5292308287) The system [employer] generated this result transmitted ref erence range: 35 - 45 mmHg. The reference r fernando was not used to interpret this result as normal/abnor mal. PO2 (test code = See_Comment L [Automated message] 2936535058) The system [employer] generated this result transmitted ref erence range: 80 - 100 mmHg. The reference r fernando was not used to interpret this result as normal/abnor mal. HCO3 (test code = See_Comment [Automate d message] 8112144130) The system [employer] generated this result transmitted ref erence range: 22 - 26 mEq/L. The reference r fernando was not used to interpret this result as normal/abnor mal. BE (test code = See_Comment [Automated message] 3703363470) The system [employer] generated this result transmitted ref erence range: -3.0 - 3 .0 mEq/L. The refe rence range was not u sed to interpret this result as normal/abnor mal. Lab Interpretation (test Abnormal code = 59402-8) [facility] Culture - Peripheral # [id number] 04:15:17 Test Item Value Reference Range Interpretation Comments Blood Culture-Aerobic Culture positive. No growth AA P revious (test code = 14942-5) See Blood prelim inary Culture Workup verified resu lt for additional was Culture I n information. Progress on 01/23/2021 at 070 2 CDT Blood Culture positive. No growth AA Previous Culture-Anaerobic See Blood preliminar y (test code = 20210-5) Culture Workup veri fied result for additional was Culture I n information. Progress on 01/23/2021 at 230 5 CDT Lab Interpretation Abnormal (test code = 91760-5) [facility] Culture - Peripheral # [id number] 04:15:17 Test Item Value Reference Range Interpretation Comments Blood Culture-Aerobic Culture positive. No growth AA P revious (test code = 32828-1) See Blood prelim inary Culture Workup verified resu lt for additional was Culture I n information. Progress on 01/23/2021 at 070 2 CDT Blood Culture positive. No growth AA Previous Culture-Anaerobic See Blood preliminar y (test code = 47632-7) Culture Workup veri fied result for additional was Culture I n information. Progress on 01/23/2021 at 230 5 CDT Lab Interpretation Abnormal (test code = 49633-7) [facility] POSITIVE BLOOD PATHOGENS DNA [id number] 00:14:26 Test Item Value Reference Range Interpretation Comments Coagulase Negative Positive Negative, See A Staphylococcus (test Comment/Narrative code = 16445-8) HAVEN (test code = HAVEN) Coagulase negative Staphylococcus (CoNS) detected by DNA probe. ?CoNS often contaminate blood cultures from skin colonization during phlebotomy. ?Preferred management is to repeat blood cultures, and monitor off antibiotics. ?Contamination is suggested by culture growth after 48 hours, or growth in single culture (i.e., one of two sets). ?True bacteremia is suggested by the fever, hypotension, and leukocytosis that are not explained by an alternative infection, or indwelling foreign devices that appear infected (catheters, lines, or prostheses). Consider Infectious Diseases consultation if differentiation of CoNS bacteremia from contamination is uncertain. If clinical context suggests true bacteremia, preferred therapy is vancomycin. Please contact the Antimicrobial Stewardship Program with questions.Pager: ?[phone] Testing included eleven identification and three resistance marker targets. Lab Interpretation Abnormal (test code = 33794-5) [facility] POSITIVE BLOOD PATHOGENS DNA [id number] 00:14:26 Test Item Value Reference Range Interpretation Comments Coagulase Negative Positive Negative, See A Staphylococcus (test Comment/Narrative code = 40196-1) HAVEN (test code = HAVEN) Coagulase negative Staphylococcus (CoNS) detected by DNA probe. ?CoNS often contaminate blood cultures from skin colonization during phlebotomy. ?Preferred management is to repeat blood cultures, and monitor off antibiotics. ?Contamination is suggested by culture growth after 48 hours, or growth in single culture (i.e., one of two sets). ?True bacteremia is suggested by the fever, hypotension, and leukocytosis that are not explained by an alternative infection, or indwelling foreign devices that appear infected (catheters, lines, or prostheses). Consider Infectious Diseases consultation if differentiation of CoNS bacteremia from contamination is uncertain. If clinical context suggests true bacteremia, preferred therapy is vancomycin. Please contact the Antimicrobial Stewardship Program with questions.Pager: ?[phone] Testing included eleven identification and three resistance marker targets. Lab Interpretation Abnormal (test code = 91874-3) [facility] T[facility] Level - Draw no more than 60 minutes before the 1400 dose.2021-01-24 19:57:17 Test Item Value Reference Range Interpretation Comments VANCO TROUGH (test code 17.1 ug/mL 10.0-20.0 = 4782314787) HAVEN (test code = HAVEN) Toxic Range: ?>20 ug/mL 15-20 ug/mL is recommended for severe infection or when Vancomycin KO is greater than or equal to 2. Lab Interpretation (test Normal code = 68862-2) [facility] Trough Level - Draw no more than 60 minutes before the 1400 dose.2021-01-24 19:57:17 Test Item Value Reference Range Interpretation Comments VANCO TROUGH (test code 17.1 ug/mL 10.0-20.0 = 7328137333) HAVEN (test code = HAVEN) Toxic Range: ?>20 ug/mL 15-20 ug/mL is recommended for severe infection or when Vancomycin KO is greater than or equal to 2. Lab Interpretation (test Normal code = 38070-8) [facility] NEGATIVE BLOOD PATHOGENS DNA [id number] 19:17:52 Test Item Value Reference Range Interpretation Comments Blood Pathogens by No organisms included in DNA Comment (test the Blood DNA Probe test code = 71147-7) panel were detected. Further identification workup to be performed by culture testing methods. HAVEN (test code = See blood culture result HAVEN) for additional information. ?Testing included eight identification and six resistance marker targets. [facility] DNA [id number] 19:17:52 Test Item Value Reference Range Interpretation Comments Blood Pathogens by No organisms included in DNA Comment (test the Blood DNA Probe test code = 64411-9) panel were detected. Further identification workup to be performed by culture testing methods. HAVEN (test code = See blood culture result HAVEN) for additional information. ?Testing included eight identification and six resistance marker targets. [facility] PEL[facility] W [id number] 18:33:52Findings most consistent with acute enterocolitis, infectious versusinflammatory. No abscess or obstruction. Decompressed urinary bladder with mild surrounding stranding, correlatewith urinalysis to exclude cystitis. Small bilateral pleural effusions, left greater than right. Consolidationat both lung bases, left greater than right, could represent atelectasisand/or pneumonia. RL: 7000 Patient name: CAROLINA WALKER: 1950 70 years EXAMINATION: CT ABDOMEN PELVIS W CONTRAST Ordering Physician: ARMANDO WALLS CLINICAL HISTORY:Abdominal abscess/infection suspected COMPARISON:None TECHNIQUE:Helical CT images of the abdomen and pelvis were performed from the lungbases to the proximal femurs using 5 mm slice thickness after theadministration of IV contrast. Coronal and sagittal reconstruction wasperformed. Dose reduction technology was utilized.. FINDINGS:The liver is normal in size and morphology without discrete lesions.Cholecystectomy, though motion artifact limits evaluation for acute processwithin the gallbladder fossa.. The spleen is normal. No pancreatic lesionsor inflammatory changes. The adrenal glands are normal. Both kidneys enhance symmetrically with a simple left renal cyst measuring3.5 cm.. No stones or hydronephrosis. Urinary bladder is decompressed froma Higgins catheter. Mild stranding seen about the urinary bladder.. No hiatal hernia or esophageal thickening. No discrete gastric thickeningor surrounding inflammatory changes. Fluid-filled small bowel loops.Fluid-filled sigmoid colon and rectum with mild wall thickening. No bowelobstruction.. The appendix is normal. No free fluid or abscess. Mildly enlargedpelvic lymph nodes are presentmeasuring up to 1.3 cm in short axis. No other adenopathy. Aorta is normalin caliber. No acute osseous abnormality. Degenerative changes of the spine. Smallfat-containing left inguinal hernia. No fluid collections in the ventralabdominal wall soft tissues.. There is a small left and trace right pleural effusion. Extensiveconsolidation at the left lung base with occlusionof the left lower lobebronchus. Patchy areas of low attenuation within this consolidation. To alesser extent, there is consolidation along the medial aspect of the rightlower lobe. [facility], Radiant Results Inft User - 01/24/2021 1:35 PM CDT Patient name: CAROLINA DURHAMB: 1950 70 years EXAMINATION: CT ABDOMEN PELVIS W CONTRASTOrdering Physician: ARMANDO WALLS CLINICAL HISTORY:Abdominal abscess/infection suspected COMPARISON:NoneTECHNIQUE:Helical CT images of the abdomen and pelvis were performed from the lungbases to the proximal femurs using 5 mm slice thickness after theadministration of IV contrast. Coronal and sagittal reconstruction wasperformed. Dose reduction technology was utilized..FINDINGS:The liver is normal in size and morphology without discrete lesions.Cholecystectomy, though motion artifact limits evaluation for acute processwithin the gallbladder fossa.. The spleen is normal. No pancreatic lesionsor inflammatory changes. The adrenal glands are normal.Both kidneys enhance symmetrically with a simple left renal cyst measuring3.5 cm.. No stones or hydronephrosis. Urinary bladder is decompressed froma Higgins catheter. Mild stranding seen about the urinary bladder..No hiatal hernia or esophageal thickening. No discrete gastric thickeningor surrounding inflammatory changes. Fluid-filled small bowel loops.Fluid-filledsigmoid colon and rectum with mild wall thickening. No bowelobstruction.. The appendix is normal.No free fluid or abscess. Mildly enlarged pelvic lymph nodes are presentmeasuring up to 1.3 cm in short axis. No other adenopathy. Aorta is normalin caliber.No acute osseous abnormality. Degenerative changes of the spine. Smallfat-containing left inguinal hernia. No fluid collections in the ventralabdominal wall soft tissues..There is a small left and trace right pleural effusion. Extensiveconsolidation at the left lung base with occlusion of the left lower lobebronchus. Patchy areas of low attenuation within this consolidation. To alesser extent, there is consolidation along the medial aspect of the rightlower lobe.IMPRESSIONFindings most consistent with acute enterocolitis, infectious versusinflammatory. No abscess or obstruction.Decompressed urinary bladder with mild surrounding stranding, correlatewith urinalysis to exclude cystitis.Small bilateral pleural effusions, left greater than right. Consolidationat both lung bases, left greater than right, could represent atelectasisand/or pneumonia.RL: 7000 Un[facility]CT [facility] W [id number] 18:33:52Findings most consistent with acute enterocolitis, infectious versusinflammatory. No abscess or obstruction. Decompressed urinary bladder with mild surrounding stranding, correlatewith urinalysis to exclude cystitis. Small bilateral pleural effusions, left greater than right. Consolidationat both lungbases, left greater than right, could represent atelectasisand/or pneumonia. RL: 7000 Patient name: CAROLINA WALKER: 1950 70 years EXAMINATION: CT ABDOMEN PELVIS W CONTRAST Ordering Physician: ARMANDO WALLS CLINICAL HISTORY:Abdominal abscess/infection suspected COMPARISON:None TECHNIQUE:Helical CT images of the abdomen and pelvis were performed from the lungbases to the proximal femurs using 5 mm slice thickness after theadm inistration of IV contrast. Coronal and sagittal reconstruction wasperformed. Dose reduction technology was utilized.. FINDINGS:The liver is normal in size and morphology without discrete lesions.Cholecystectomy, though motion artifact limits evaluation for acute processwithin the gallbladder fossa.. The spleen is normal. No pancreatic lesionsor inflammatory changes. The adrenal glands are normal. Both kidneys enhance symmetrically with a simple left renal cyst measuring3.5 cm.. No stones or hydronephrosis. Urinary bladder is decompressed froma Higgins catheter. Mild stranding seen about the urinary bladder.. No hiatal hernia or esophageal thickening. No discrete gastric thickeningor surrounding inflammatory changes. Fluid-filled small bowel loops.Fluid-filled sigmoid colon and rectum with mild wall thickening. No bowelobstruction.. The appendix is normal. No free fluid or abscess. Mildly enlargedpelvic lymph nodes are presentmeasuring up to 1.3 cm in short axis. No other adenopathy. Aorta is nor leslie caliber. No acute osseous abnormality. Degenerative changes of the spine. Smallfat-containing left inguinal hernia. No fluid collections in the ventralabdominal wall soft tissues.. There is a small left and trace right pleural effusion. Extensiveconsolidation at the left lung base with occlusionof the left lower lobebronchus. Patchy areas of low attenuation within this consolidation. To alesser extent, there is consolidation along the medial aspect of the rightlower lobe. [facility], Radiant Results Inft User - 01/24/2021 1:35 PM CDT Patient name: CAROLINA WALKER: 1950 70 years EXAMINATION: CT ABDOMEN PELVIS W CONTRASTOrdering Physician: ARMANDO WALLS CLINICAL HISTORY:Abdominal abscess/infection suspected COMPARISON:NoneTECHNIQUE:Helical CT images of the abdomen and pelvis were performed from the lungbases to the proximal femurs using 5 mm slice thickness after theadministration of IV contrast. Coronal and sagittal reconstruction wasperformed. Dose reduction technology was utilized..FINDINGS:The liver is normal in size and morphology without discrete lesions.Cholecystectomy, though motion artifact limits evaluation for acute processwithin the gallbladder fossa.. The spleen is normal. No pancreatic lesionsor inflammatory changes. The adrenal glands are normal.Both kidneys enhance symmetrically with a simple left renal cyst measuring3.5 cm.. No stones or hydronephrosis. Urinary bladder is decompressed froma Higgins catheter. Mild stranding seen about the urinary bladder..No hiatal hernia or esophageal thickening. No discrete gastric thickeningor surrounding inflammatory changes. Fluid-filled small bowel loops.Fluid-filledsigmoid colon and rectum with mild wall thickening. No bowelobstruction.. The appendix is normal.No free fluid or abscess. Mildly enlarged pelvic lymph nodes are presentmeasuring up to 1.3 cm in short axis. No other adenopathy. Aorta is normalin caliber.No acute osseous abnormality. Degenerative changes of the spine. Smallfat-containing left inguinal hernia. No fluid collections in the ventralabdominal wall soft tissues..There is a small left and trace right pleural effusion. Extensiveconsolidation at the left lung base with occlusion of the left lower lobebronchus. Patchy areas of low attenuation within this consolidation. To alesser extent, there is consolidation along the medial aspect of the rightlower lobe.IMPRESSIONFindings most consistent with acute enterocolitis, infectious versusinflammatory. No abscess or obstruction.Decompressed urinary bladder with mild surrounding stranding, correlatewith urinalysis to exclude cystitis.Small bilateral pleural effusions, left greater than right. Consolidationat both lung bases, left greater than right, could represent atelectasisand/or pneumonia.RL: [id number] Un[facility] [id number] 17:55:13 Moderate-sized left pleural effusion with left lower lobe atelectasis. A 3.4 cm oval-shaped densityin the left axilla is nonspecific, mayrepresent a synovial osteochondroma or calcified lymph node, unchanged. Preliminary Report Dictated by Resident: Emiliano Keys MD., have reviewed this study and agree with theabove report.EXAM:XR CHEST 1 VW HISTORY: 70 years-old Male; Indication for study: sob, hypoxia COMPARISON: Chest radiograph dated 07/12/2020 and 06/21/2020 FINDINGS: Lungs/Pleura: A small to moderate-sized left pleural effusion with leftlower lobe atelectasis. There is no pleural effusion or pneumothorax. Heart/Mediastinum: The cardiomediastinal silhouette is mildly enl arged,unchanged. Bones and soft tissues: No acute abnormality detected. Thoracicspondylosis. Severe bilateral glenohumeral osteoarthrosis. A 3.4 cmoval- shaped density in the left axilla is nonspecific.[facility], Radiant Results Inft User - 01/24/2021 12:56 PM CDT EXAM:XR CHEST 1 VWHISTORY: 70 years-old Male; Indication for study: sob, hypoxia COMPARISON: Chest radiograph dated 07/12/2020 and 06/21/2020FINDINGS:Lungs/Pleura: A small to moderate-sized left pleural effusion with leftlower lobe atelectasis. There is no pleural effusion or pneumothor ax.Heart/Mediastinum: The cardiomediastinal silhouette is mildly enlarged,unchanged.Bones and soft tissues: No acute abnormality detected. Thoracicspondylosis. Severe bilateral glenohumeral osteoarthrosis. A 3.4 cmoval- shaped density in the left axilla is nonspecific.IMPRESSIONModerate-sized left pleural effusion with left lower lobe atelectasis.A 3.4 cm oval-shaped density in the left axilla is nonspecific, mayrepresent a synovial osteochondroma or calcified lymph node, unchanged.Preliminary ReportDictated by Resident: Emiliano Joyce MD., have reviewed this study and agree withtheabove report.[facility] [id number] 17:55:13 Moderate-sized left pleural effusion with left lower lobe atelectasis. A 3.4 cm oval-shaped densityin the left axilla is nonspecific, mayrepresent a synovial osteochondroma or calcified lymph node, unchanged. Preliminary Report Dictated by Resident: Emiliano Keys MD., have reviewed this study and agree with theabove report.EXAM:XR CHEST 1 VW HISTORY: 70 years-old Male; Indication for study: sob, hypoxia COMPARISON: Chest radiograph dated 07/12/2020 and 06/21/2020 FINDINGS: Lungs/Pleura: A small to moderate-sized left pleural effusion with leftlower lobe atelectasis. There is no pleural effusion or pneumothorax. Heart/Mediastinum: The cardiomediastinal silhouette is mildly enl arged,unchanged. Bones and soft tissues: No acute abnormality detected. Thoracicspondylosis. Severe bilateral glenohumeral osteoarthrosis. A 3.4 cmoval- shaped density in the left axilla is nonspecific.[facility], Radiant Results Inft User - 01/24/2021 12:56 PM CDT EXAM:XR CHEST 1 VWHISTORY: 70 years-old Male; Indication for study: sob, hypoxia COMPARISON: Chest radiograph dated 07/12/2020 and 06/21/2020FINDINGS:Lungs/Pleura: A small to moderate-sized left pleural effusion with leftlower lobe atelectasis. There is no pleural effusion or pneumothor ax.Heart/Mediastinum: The cardiomediastinal silhouette is mildly enlarged,unchanged.Bones and soft tissues: No acute abnormality detected. Thoracicspondylosis. Severe bilateral glenohumeral osteoarthrosis. A 3.4 cmoval- shaped density in the left axilla is nonspecific.IMPRESSIONModerate-sized left pleural effusion with left lower lobe atelectasis.A 3.4 cm oval-shaped density in the left axilla is nonspecific, mayrepresent a synovial osteochondroma or calcified lymph node, unchanged.Preliminary ReportDictated by Resident: Emiliano Joyce MD., have reviewed this study and agree withtheabove report.[facility] acute hospital WITH [id number] 15:09:46 Test Item Value Reference Range Interpretation Comments WBC (test code = See_Comment H [Automated 6690-2) message] The system which generated this result transmit josé antonio reference range : 4.20 - 10.70 10*3/?L. The reference range was not used to interpret this result as normal/abnormal . RBC (test code = See_Comment L [Automated 789-8) message] The system which generated this result transmit josé antonio reference range : 4.26 - 5.52 10*6/?L. The reference range was not used to interpret this result as normal/abnormal . HGB (test code = 10.4 g/dL 12.2-16.4 L 718-7) HCT (test code = 33.9 % 38.4-49.3 L 4544-3) MCV (test code = 80.3 fL 81.7-95.6 L 787-2) MCH (test code = 24.6 pg 26.1-32.7 L 785-6) MCHC (test code = 30.7 g/dL 31.2-35.0 L 786-4) RDW-SD (test code = 61.1 fL 38.5-51.6 H 32655-5) RDW-CV (test code = 20.8 % 12.1-15.4 H 788-0) PLT (test code = See_Comment [Automated 777-3) message] The system which generated this result transmit josé antonio reference range : 150 - 328 10*3/ ?L. The reference range was not u sed to interpret th is result as normal/abnormal . MPV (test code = 9.5 fL 9.8-13.0 L 59577-5) NRBC/100 WBC (test See_Comment [Automat ed code = 8044339253) message] The system which generated this result transmit josé antonio reference range : 0.0 - 10.0 /100 WBCs. The reference range was not used to interpret this result as normal/abnormal . NRBC x10^3 (test code <0.01 See_Comment [Auto mated = [id number]) message] The system which generated this result transmit josé antonio reference range : 10*3/?L. The reference range was not used to interpret this result as normal/abnormal . SEG % (test code = 28 % 33-76 L 97383-1) BAND % (test code = 60 % 0-1 H 78701-2) META % (test code = 4 % See_Comment H [Automa josé antonio 46769-9) message] The system which generated this result transmit josé antonio reference range : <=0. The refere nce range was not u sed to interpret th is result as normal/abnormal . LYMPH % (test code = 4 % 14-54 L 11378-6) MONO % (test code = 4 % 0-4 33340-9) ANC (test code = 14.15 10*3/uL 1.99-6.95 H 4129254929) Lab Interpretation Abnormal (test code = 25222-0) [facility] acute hospital WITH [id number] 15:09:46 Test Item Value Reference Range Interpretation Comments WBC (test code = See_Comment H [Automated 6690-2) message] The system which generated this result transmit josé antonio reference range : 4.20 - 10.70 10*3/?L. The reference range was not used to interpret this result as normal/abnormal . RBC (test code = See_Comment L [Automated 789-8) message] The system which generated this result transmit josé antonio reference range : 4.26 - 5.52 10*6/?L. The reference range was not used to interpret this result as normal/abnormal . HGB (test code = 10.4 g/dL 12.2-16.4 L 718-7) HCT (test code = 33.9 % 38.4-49.3 L 4544-3) MCV (test code = 80.3 fL 81.7-95.6 L 787-2) MCH (test code = 24.6 pg 26.1-32.7 L 785-6) MCHC (test code = 30.7 g/dL 31.2-35.0 L 786-4) RDW-SD (test code = 61.1 fL 38.5-51.6 H 92586-5) RDW-CV (test code = 20.8 % 12.1-15.4 H 788-0) PLT (test code = See_Comment [Automated 777-3) message] The system which generated this result transmit josé antonio reference range : 150 - 328 10*3/ ?L. The reference range was not u sed to interpret th is result as normal/abnormal . MPV (test code = 9.5 fL 9.8-13.0 L 82692-6) NRBC/100 WBC (test See_Comment [Automat ed code = 3668946475) message] The system which generated this result transmit josé antonio reference range : 0.0 - 10.0 /100 WBCs. The reference range was not used to interpret this result as normal/abnormal . NRBC x10^3 (test code <0.01 See_Comment [Auto mated = 0201463049) message] The system which generated this result transmit josé antonio reference range : 10*3/?L. The reference range was not used to interpret this result as normal/abnormal . SEG % (test code = 28 % 33-76 L 97124-7) BAND % (test code = 60 % 0-1 H 79218-4) META % (test code = 4 % See_Comment H [Automa josé antonio 06476-3) message] The system which generated this result transmit josé antonio reference range : <=0. The refere nce range was not u sed to interpret th is result as normal/abnormal . LYMPH % (test code = 4 % 14-54 L 61884-6) MONO % (test code = 4 % 0-4 02613-4) ANC (test code = 14.15 10*3/uL 1.99-6.95 H 0223920687) Lab Interpretation Abnormal (test code = 96543-2) [facility] [id number] 14:52:45 Test Item Value Reference Range Interpretation Comments NT-proBNP (test code 7340 pg/mL See_Comment H [Autom ated = 0659331182) message] The system which generated this result transmitted reference range : <=125. The reference range was not used to interpret this result as normal/abnormal . HAVEN (test code = HAVEN) Biotin has been reported to cause a negative bias, interpret results relative to patient's use of biotin. Lab Interpretation Abnormal (test code = 83861-0) [facility] [id number] 14:52:45 Test Item Value Reference Range Interpretation Comments NT-proBNP (test code 7340 pg/mL See_Comment H [Autom ated = 0744524952) message] The system which generated this result transmitted reference range : <=125. The reference range was not used to interpret this result as normal/abnormal . HAVEN (test code = HAVEN) Biotin has been reported to cause a negative bias, interpret results relative to patient's use of biotin. Lab Interpretation Abnormal (test code = 99475-8) [facility] METABOLIC PANEL ([id number])2021-01-24 14:44:03 Test Item Value Reference Range Interpretation Comments NA (test code = 139 mmol/L 135-145 0882326157) K (test code = 3.6 mmol/L 3.5-5.0 5352962844) CL (test code = 107 mmol/L 98-108 0579597158) CO2 TOTAL (test code = 23 mmol/L 23-31 2041346858) AGAP (test code = 2-16 3354299906) BUN (test code = 48 mg/dL 7-23 H 3421515371) GLUCOSE (test code = 88 mg/dL 70-110 5805773411) CREATININE (test code = 1.23 mg/dL 0.60-1.25 8779471674) TOTAL BILI (test code = 1.6 mg/dL 0.1-1.1 H 5093070015) CALCIUM (test code = 7.7 mg/dL 8.6-10.6 L 7991476335) T PROTEIN (test code = 6.5 g/dL 6.3-8.2 2316694321) ALBUMIN (test code = 2.9 g/dL 3.5-5.0 L 2403462378) ALK PHOS (test code = 213 U/L 34-122 H 4524391931) ALTv (test code = 58 U/L 5-50 H 1742-6) AST(SGOT) (test code = 96 U/L 13-40 H 6577535105) eGFR (test code = mL/min/1.73m2 5431277235) HAVEN (test code = HAVEN) Association of Glomerular Filtration Rate (GFR) and Staging of Kidney Disease* + --+ --+ ------+| GFR (mL/min/1.73 m2) ?| With Kidney Damage ?| ?Without Kidney Damage+ --------+ --------+ +| ?>90 ?| ?Stage one ?| ? Normal ?+ ---+ ---+ -------+| ?60-89 ?| ?Stage two ?| ? Decreased GFR ? + --+ --+ ------+| ?30-59 ?| ?Stage three ?| ? Stage three ? + --+ --+ ------+| ?15-29 ?| ?Stage four ? | ? Stage four ?+ ---+ ---+ -------+| ?<15 (or dialysis) ? ?| ?Stage five ? | ? Stage five ?+ ---+ ---+ -------+ *Each stage assumes the associated GFR level has been in effect for at least three months. ?Stages 1 to 5, with or without kidney disease, indicate chronic kidney disease. Notes: Determination of stages one and two (with eGFR >59mL/min/1.73 m2) requires estimation of kidney damage for at least three months as defined by structural or functional abnormalities of the kidney, manifested by either:Pathological abnormalities or Markers of kidney damage (including abnormalities in the composition of the blood or urine or abnormalities in imaging tests). Lab Interpretation Abnormal (test code = 35983-0) [facility]. METABOLIC PANEL ([id number])2021-01-24 14:44:03 Test Item Value Reference Range Interpretation Comments NA (test code = 139 mmol/L 135-145 3898379150) K (test code = 3.6 mmol/L 3.5-5.0 6443989514) CL (test code = 107 mmol/L 98-108 0708435058) CO2 TOTAL (test code = 23 mmol/L 23-31 6857723190) AGAP (test code = 2-16 9240576492) BUN (test code = 48 mg/dL 7-23 H 6839374877) GLUCOSE (test code = 88 mg/dL 70-110 1463009153) CREATININE (test code = 1.23 mg/dL 0.60-1.25 7680550206) TOTAL BILI (test code = 1.6 mg/dL 0.1-1.1 H 4897746127) CALCIUM (test code = 7.7 mg/dL 8.6-10.6 L 6793455781) T PROTEIN (test code = 6.5 g/dL 6.3-8.2 3358803505) ALBUMIN (test code = 2.9 g/dL 3.5-5.0 L 9238640618) ALK PHOS (test code = 213 U/L 34-122 H 4417648373) ALTv (test code = 58 U/L 5-50 H 1742-6) AST(SGOT) (test code = 96 U/L 13-40 H 1184055539) eGFR (test code = mL/min/1.73m2 0350498650) HAVEN (test code = HAVEN) Association of Glomerular Filtration Rate (GFR) and Staging of Kidney Disease* + --+ --+ ------+| GFR (mL/min/1.73 m2) ?| With Kidney Damage ?| ?Without Kidney Damage+ --------+ --------+ +| ?>90 ?| ?Stage one ?| ? Normal ?+ ---+ ---+ -------+| ?60-89 ?| ?Stage two ?| ? Decreased GFR ? + --+ --+ ------+| ?30-59 ?| ?Stage three ?| ? Stage three ? + --+ --+ ------+| ?15-29 ?| ?Stage four ? | ? Stage four ?+ ---+ ---+ -------+| ?<15 (or dialysis) ? ?| ?Stage five ? | ? Stage five ?+ ---+ ---+ -------+ *Each stage assumes the associated GFR level has been in effect for at least three months. ?Stages 1 to 5, with or without kidney disease, indicate chronic kidney disease. Notes: Determination of stages one and two (with eGFR >59mL/min/1.73 m2) requires estimation of kidney damage for at least three months as defined by structural or functional abnormalities of the kidney, manifested by either:Pathological abnormalities or Markers of kidney damage (including abnormalities in the composition of the blood or urine or abnormalities in imaging tests). Lab Interpretation Abnormal (test code = 80215-6) [facility] [id number] 14:33:42 FINDINGS/IMPRESSION: Positioning slightly improved, however patient remains rotated to the left.Subclavian central venous catheter on the right is seen projecting over theupper mediastinum, crossing the midline and projecting over the aorticarch. No interval change detected otherwise. IMPRESSION: Right subclavian central venous catheter tip projects over aortic arch,raising possibility of arterial placement. However, patient remains rotatedto the left, limiting evaluation. Consider dedicated PA and lateral chestradiograph if patient is stable enough [facility] Preliminary Report Dictated by Resident: Yash Baltazar MD., have reviewed this study and agree with the abovereport.EXAM: XR CHEST 1 VW COMPARISON: Chest radiograph dating back to 07/12/2020 HISTORY: Dyspnea [facility], Radiant Results Inft User - 01/24/2021 9:34 AM CDTFormatting of this note mightbe different from the original.EXAM: XR CHEST 1 VWCOMPARISON: Chest radiograph dating back to 07/12/19 21HISTORY: Dyspnea IMPRESSIONFINDINGS/IMPRESSION:Positioning slightly improved, however patient remains rotated to the left.Subclavian central venous catheter on the right is seen projecting over theupper mediastinum, crossing the midline and projecting over the aorticarch. No interval change detected otherwise.IMPRESSION:Right subclavian central venous catheter tip projects over aortic arch,raising possibility of arterial placement. However, patient remains rotatedto the left, limiting evaluation. Consider dedicated PA and lateral chestradiograph if patient is stable enough to [facility]Preliminary Report Dictated by Resident: Yash Jimenez MD., have reviewed this study and agree with the abovereport.[facility] 1 [id number] 14:33:42FINDINGS/IMPRESSION: Positioning slightly improved, however patient remains rotated to the left.Subcl dafne central venous catheter on the right is seen projecting over theupper mediastinum, crossing the midline and projecting over the aorticarch. No interval change detected otherwise. IMPRESSION: Right subclavian central venous catheter tip projects over aortic arch,raising possibility of arterial arnaldo cement. However, patient remains rotatedto the left, limiting evaluation. Consider dedicated PA and lateral chestradiograph if patient is stable enough to transport to radiologydepartment. Preliminary Report Dictated by Resident: Yash Baltazar MD., have reviewed this study and agree with the abovereport.EXAM: XR CHEST 1 VW COMPARISON: Chest radiograph dating back to 07/12/2020 HISTORY: Dyspnea [facility], Radiant Results Inft User - 01/24/2021 9:34 AM CDTFormatting of this note mightbe different from the original.EXAM: XR CHEST 1 VWCOMPARISON: Chest radiograph dating back to 07/12/2020HISTORY: Dyspnea IMPRESSIONFINDINGS/IMPRESSION:Positioning slightly improved, however patient remains rotated to the left.Subclavian central venous catheter on the right is seen projecting over theupper mediastinum, crossing the midline and projecting over the aorticarch. No interval change detectedotherwise.IMPRESSION:Right subclavian central venous catheter tip projects over aortic arch,raising p ossibility of arterial placement. However, patient remains rotatedto the left, limiting evaluation. Consider dedicated PA and lateral chestradiograph if patient is stable enough to transport to radiologydepartment.Preliminary Report Dictated by Resident: Ysah Jimenez MD., have reviewed this study and agree with the abovereport.[facility] 1 [id number] 14:31:12 Interval placement of subclavian central venous catheter on the right.Patient rotation limits evaluation of catheter placement, with tip nowprojecting over the mid portion of the cardiomediastinal silhouette. Repeatchest radiograph with more optimal patient positioning recommended. Moderate volume left pleural effusion with adjacent consolidation, probablyatelectasis given slight mediastinal shift to the left. Preliminary Report Dictated by Resident: Yash Baltazar MD., have revi ewed this study and agree with the abovereport.EXAM: XR CHEST 1 VW COMPARISON: Same day chest radiograph 01/22/2021 HISTORY: confirm central line placement FINDINGS: The patient is rotated limiting evaluation. The right subclavian centralvenous catheter is seen projecting over the upper mediastinum with its tipprojecting over the middle of the cardiomediastinal silhouette. Unchangedmoderate left pleural effusion. The visualized right lung is clear.Unchanged calcific density along the left axilla. No pneumothorax isidentified. [facility], Radiant Results Inft User - 01/24/2021 9:32 AM CDT EXAM: XR CHEST 1 VWCOMPARISON: Same day chest radiograph 01/22/2021HISTORY: confirm central line placement FINDINGS:The patient is rotated limiting evaluation. The right subclavian centralvenous catheter is seen projecting over the upper mediastinum with its tipprojecting over the middle of the cardiomediastinal silhouette. Unchangedmoderate left pleural effusion. The visualized right lung is clear.Unchanged calcific density along the left axilla. No pneumothorax isidentified.IMPRESSIONInterval placement of subclavian central venous catheter on the right.Patient rotation limits evaluation of catheter placement, with tip nowprojecting over the mid portion ofthe cardiomediastinal silhouette. Repeatchest radiograph with more optimal patient positioning recomm ended.Moderate volume left pleural effusion with adjacent consolidation, probablyatelectasis given slight mediastinal shift to the left.Preliminary Report Dictated by Resident: Yash Jimenez MD., have reviewed this study and agree with the abovereport.[facility] 1 [id number] 14:31:12 Interval placement of subclavian central venous catheter on the right.Patient rotation limits evaluation of catheter placement, with tip nowprojecting over the mid portion of the cardiomediastinal silhouette. Repeatchest radiograph with more optimal patient positioning recommended. Moderate volume left pleural effusion with adjacent consolidation, probablyatelectasis given slight mediastinal shift to the left. Preliminary Report Dictated by Resident: Yash Baltazar MD., have revi ewed this study and agree with the abovereport.EXAM: XR CHEST 1 VW COMPARISON: Same day chest radiograph 01/22/2021 HISTORY: confirm central line placement FINDINGS: The patient is rotated limiting evaluation. The right subclavian centralvenous catheter is seen projecting over the upper mediastinum with its tipprojecting over the middle of the cardiomediastinal silhouette. Unchangedmoderate left pleural effusion. The visualized right lung is clear.Unchanged calcific density along the left axilla. No pneumothorax isidentified. [facility], Radiant Results Inft User - 01/24/2021 9:32 AM CDT EXAM: XR CHEST 1 VWCOMPARISON: Same day chest radiograph 01/22/2021HISTORY: confirm central line placement FINDINGS:The patient is rotated limiting evaluation. The right subclavian centralvenous catheter is seen projecting over the upper mediastinum with its tipprojecting over the middle of the cardiomediastinal silhouette. Unchangedmoderate left pleural effusion. The visualized right lung is clear.Unchanged calcific density along the left axilla. No pneumothorax isidentified.IMPRESSIONInterval placement of subclavian central venous catheter on the right.Patient rotation limits evaluation of catheter placement, with tip nowprojecting over the mid portion ofthe cardiomediastinal silhouette. Repeatchest radiograph with more optimal patient positioning recomm ended.Moderate volume left pleural effusion with adjacent consolidation, probablyatelectasis given slight mediastinal shift to the left.Preliminary Report Dictated by Resident: Carina Espitia, Yash Quinn MD., have reviewed this study and agree with the abovereport.[facility] + LACTIC [id number] 13:20:05 Test Item Value Reference Range Interpretation Comments PH (test code = 2) 7.35-7.45 PCO2 (test code = See_Comment [Automat ed [id number]) message] The sy stem which generated this result transmitted reference range : 35 - 45 mmHg. The reference range was not used to interpret this result as normal/abnormal . PO2 (test code = See_Comment H [Automated [id number]) message] The sy stem which generated this result transmitted reference range : 80 - 100 mmHg. The reference range was not used to interpret this result as normal/abnormal . HCO3 (test code = See_Comment [Automate d [id number]) message] The sy stem which generated this result transmitted reference range : 22 - 26 mEq/L. The reference range was not used to interpret this result as normal/abnormal . BE (test code = See_Comment L [Automated [id number]) message] The sy stem which generated this result transmitted reference range : -3.0 - 3.0 mEq/ L. The reference r fernando was not used to interpret this result as normal/abnormal . THB (test code = 11.4 g/dL 13.5-18.0 L 9629657771) %O2HB (test code = 97.4 % 94.0-99.0 1923333661) %COHB ART (test code = 0.2 % 0.0-1.5 7669723720) %METHB ART (test code = 0.3 % 0.4-1.5 L 1579561135) VOL%O2 ART (test code = 15.8 % 15.0-23.0 2403270929) NA (test code = 138 mmol/L 135-145 1409028640) K+ (test code = 3.2 mmol/L 3.5-5.0 L 8905668458) AC CA IONZ (test code = 4.10 mg/dL 4.50-5.30 L 5310849725) GLUCOSE (test code = 92 mg/dL 70-110 1678381125) LACTIC ACID (test code 2.66 mmol/L 0.50-2.20 H = 4589686232) Lab Interpretation Abnormal (test code = 96298-9) [facility] [id number] 13:20:05 Test Item Value Reference Range Interpretation Comments PH (test code = 2) 7.35-7.45 PCO2 (test code = See_Comment [Automat ed 6071004353) message] The sy stem which generated this result transmitted reference range : 35 - 45 mmHg. The reference range was not used to interpret this result as normal/abnormal . PO2 (test code = See_Comment H [Automated 1900770001) message] The sy stem which generated this result transmitted reference range : 80 - 100 mmHg. The reference range was not used to interpret this result as normal/abnormal . HCO3 (test code = See_Comment [Automate d 0935316160) message] The sy stem which generated this result transmitted reference range : 22 - 26 mEq/L. The reference range was not used to interpret this result as normal/abnormal . BE (test code = See_Comment L [Automated 5901161663) message] The sy stem which generated this result transmitted reference range : -3.0 - 3.0 mEq/ L. The reference r fernando was not used to interpret this result as normal/abnormal . THB (test code = 11.4 g/dL 13.5-18.0 L 9514509256) %O2HB (test code = 97.4 % 94.0-99.0 3037485728) %COHB ART (test code = 0.2 % 0.0-1.5 9086047284) %METHB ART (test code = 0.3 % 0.4-1.5 L 9680723588) VOL%O2 ART (test code = 15.8 % 15.0-23.0 4734612229) NA (test code = 138 mmol/L 135-145 5537385107) K+ (test code = 3.2 mmol/L 3.5-5.0 L 7151476462) AC CA IONZ (test code = 4.10 mg/dL 4.50-5.30 L 7103989741) GLUCOSE (test code = 92 mg/dL 70-110 6138931272) LACTIC ACID (test code 2.66 mmol/L 0.50-2.20 H = 2449803626) Lab Interpretation Abnormal (test code = 47155-8) [facility] WITH [id number] 02:33:01 Test Item Value Reference Range Interpretation Comments WBC (test code = See_Comment H [Automated 6690-2) message] The system which generated this result transmit josé antonio reference range : 4.20 - 10.70 10*3/?L. The reference range was not used to interpret this result as normal/abnormal . RBC (test code = See_Comment [Automated 789-8) message] The system which generated this result transmit josé antonio reference range : 4.26 - 5.52 10*6/?L. The reference range was not used to interpret this result as normal/abnormal . HGB (test code = 11.4 g/dL 12.2-16.4 L 718-7) HCT (test code = 38.0 % 38.4-49.3 L 4544-3) MCV (test code = 81.2 fL 81.7-95.6 L 787-2) MCH (test code = 24.4 pg 26.1-32.7 L 785-6) MCHC (test code = 30.0 g/dL 31.2-35.0 L 786-4) RDW-SD (test code = 61.2 fL 38.5-51.6 H 52715-3) RDW-CV (test code = 20.9 % 12.1-15.4 H 788-0) PLT (test code = See_Comment [Automated 777-3) message] The system which generated this result transmit josé antonio reference range : 150 - 328 10*3/ ?L. The reference range was not u sed to interpret th is result as normal/abnormal . MPV (test code = 8.9 fL 9.8-13.0 L 13642-0) NRBC/100 WBC (test See_Comment [Automat ed code = 7706427669) message] The system which generated this result transmit josé antonio reference range : 0.0 - 10.0 /100 WBCs. The reference range was not used to interpret this result as normal/abnormal . NRBC x10^3 (test code <0.01 See_Comment [Auto mated = 6710362579) message] The system which generated this result transmit josé antonio reference range : 10*3/?L. The reference range was not used to interpret this result as normal/abnormal . SEG % (test code = 56 % 33-76 83139-2) BAND % (test code = 28 % 0-1 H 61363-6) LYMPH % (test code = 12 % 14-54 L 53930-9) MONO % (test code = 4 % 0-4 85476-1) ANC (test code = 14.22 10*3/uL 1.99-6.95 H 8887696079) POLYCHROMASIA (test 2+ See_Comment [Automa josé antonio code = 84447-3) message] The system which generated this result transmit josé antonio reference range : 2+. The referen ce range was not u sed to interpret th is result as normal/abnormal . DOHLE BODIES (test Present A code = 7792-5) TOXIC CHANGES (test Present A code = 803-7) PLT ESTIMATE (test Normal Normal code = 9317-9) Lab Interpretation Abnormal (test code = 30864-3) [facility] acute hospital WITH [id number] 02:33:01 Test Item Value Reference Range Interpretation Comments WBC (test code = See_Comment H [Automated 6690-2) message] The system which generated this result transmit josé antonio reference range : 4.20 - 10.70 10*3/?L. The reference range was not used to interpret this result as normal/abnormal . RBC (test code = See_Comment [Automated 789-8) message] The system which generated this result transmit josé antonio reference range : 4.26 - 5.52 10*6/?L. The reference range was not used to interpret this result as normal/abnormal . HGB (test code = 11.4 g/dL 12.2-16.4 L 718-7) HCT (test code = 38.0 % 38.4-49.3 L 4544-3) MCV (test code = 81.2 fL 81.7-95.6 L 787-2) MCH (test code = 24.4 pg 26.1-32.7 L 785-6) MCHC (test code = 30.0 g/dL 31.2-35.0 L 786-4) RDW-SD (test code = 61.2 fL 38.5-51.6 H 74339-4) RDW-CV (test code = 20.9 % 12.1-15.4 H 788-0) PLT (test code = See_Comment [Automated 777-3) message] The system which generated this result transmit josé antonio reference range : 150 - 328 10*3/ ?L. The reference range was not u sed to interpret th is result as normal/abnormal . MPV (test code = 8.9 fL 9.8-13.0 L 35999-2) NRBC/100 WBC (test See_Comment [Automat ed code = 0921902537) message] The system which generated this result transmit josé antonio reference range : 0.0 - 10.0 /100 WBCs. The reference range was not used to interpret this result as normal/abnormal . NRBC x10^3 (test code <0.01 See_Comment [Auto mated = 8982250102) message] The system which generated this result transmit josé antonio reference range : 10*3/?L. The reference range was not used to interpret this result as normal/abnormal . SEG % (test code = 56 % 33-76 73341-1) BAND % (test code = 28 % 0-1 H 64303-8) LYMPH % (test code = 12 % 14-54 L 97715-8) MONO % (test code = 4 % 0-4 71800-9) ANC (test code = 14.22 10*3/uL 1.99-6.95 H 0528451067) POLYCHROMASIA (test 2+ See_Comment [Automa josé antonio code = 11766-3) message] The system which generated this result transmit josé antonio reference range : 2+. The referen ce range was not u sed to interpret th is result as normal/abnormal . DOHLE BODIES (test Present A code = 7792-5) TOXIC CHANGES (test Present A code = 803-7) PLT ESTIMATE (test Normal Normal code = 9317-9) Lab Interpretation Abnormal (test code = 32190-2) [facility]. METABOLIC PANEL (80403)2021-01-24 02:24:24 Test Item Value Reference Range Interpretation Comments NA (test code = 140 mmol/L 135-145 3962099192) K (test code = 3.9 mmol/L 3.5-5.0 3698873209) CL (test code = 109 mmol/L 98-108 H 9711041137) CO2 TOTAL (test code = 16 mmol/L 23-31 L 2935528200) AGAP (test code = 2-16 3883096968) BUN (test code = 47 mg/dL 7-23 H 2325719679) GLUCOSE (test code = 107 mg/dL 70-110 9993811604) CREATININE (test code = 1.56 mg/dL 0.60-1.25 H 1182075761) TOTAL BILI (test code = 1.3 mg/dL 0.1-1.1 H 0851652700) CALCIUM (test code = 7.5 mg/dL 8.6-10.6 L 7592461670) T PROTEIN (test code = 6.8 g/dL 6.3-8.2 8669191555) ALBUMIN (test code = 3.1 g/dL 3.5-5.0 L 8347171065) ALK PHOS (test code = 256 U/L 34-122 H 1903858329) ALTv (test code = 68 U/L 5-50 H 1742-6) AST(SGOT) (test code = 90 U/L 13-40 H 5859518687) eGFR (test code = mL/min/1.73m2 2690419069) HAVEN (test code = HAVEN) Association of Glomerular Filtration Rate (GFR) and Staging of Kidney Disease* + --+ --+ ------+| GFR (mL/min/1.73 m2) ?| With Kidney Damage ?| ?Without Kidney Damage+ --------+ --------+ +| ?>90 ?| ?Stage one ?| ? Normal ?+ ---+ ---+ -------+| ?60-89 ?| ?Stage two ?| ? Decreased GFR ? + --+ --+ ------+| ?30-59 ?| ?Stage three ?| ? Stage three ? + --+ --+ ------+| ?15-29 ?| ?Stage four ? | ? Stage four ?+ ---+ ---+ -------+| ?<15 (or dialysis) ? ?| ?Stage five ? | ? Stage five ?+ ---+ ---+ -------+ *Each stage assumes the associated GFR level has been in effect for at least three months. ?Stages 1 to 5, with or without kidney disease, indicate chronic kidney disease. Notes: Determination of stages one and two (with eGFR >59mL/min/1.73 m2) requires estimation of kidney damage for at least three months as defined by structural or functional abnormalities of the kidney, manifested by either:Pathological abnormalities or Markers of kidney damage (including abnormalities in the composition of the blood or urine or abnormalities in imaging tests). Lab Interpretation Abnormal (test code = 12102-5) [facility]. METABOLIC PANEL ([id number])2021-01-24 02:24:24 Test Item Value Reference Range Interpretation Comments NA (test code = 140 mmol/L 135-145 0750514229) K (test code = 3.9 mmol/L 3.5-5.0 3122278892) CL (test code = 109 mmol/L 98-108 H 5687097396) CO2 TOTAL (test code = 16 mmol/L 23-31 L 8696988017) AGAP (test code = 2-16 3785490276) BUN (test code = 47 mg/dL 7-23 H 9739188936) GLUCOSE (test code = 107 mg/dL 70-110 4260029531) CREATININE (test code = 1.56 mg/dL 0.60-1.25 H 2794719847) TOTAL BILI (test code = 1.3 mg/dL 0.1-1.1 H 1500545488) CALCIUM (test code = 7.5 mg/dL 8.6-10.6 L 4717738233) T PROTEIN (test code = 6.8 g/dL 6.3-8.2 5871695613) ALBUMIN (test code = 3.1 g/dL 3.5-5.0 L 2463575566) ALK PHOS (test code = 256 U/L 34-122 H 3160831636) ALTv (test code = 68 U/L 5-50 H 1742-6) AST(SGOT) (test code = 90 U/L 13-40 H 8814392254) eGFR (test code = mL/min/1.73m2 3266799091) HAVEN (test code = HAVEN) Association of Glomerular Filtration Rate (GFR) and Staging of Kidney Disease* + --+ --+ ------+| GFR (mL/min/1.73 m2) ?| With Kidney Damage ?| ?Without Kidney Damage+ --------+ --------+ +| ?>90 ?| ?Stage one ?| ? Normal ?+ ---+ ---+ -------+| ?60-89 ?| ?Stage two ?| ? Decreased GFR ? + --+ --+ ------+| ?30-59 ?| ?Stage three ?| ? Stage three ? + --+ --+ ------+| ?15-29 ?| ?Stage four ? | ? Stage four ?+ ---+ ---+ -------+| ?<15 (or dialysis) ? ?| ?Stage five ? | ? Stage five ?+ ---+ ---+ -------+ *Each stage assumes the associated GFR level has been in effect for at least three months. ?Stages 1 to 5, with or without kidney disease, indicate chronic kidney disease. Notes: Determination of stages one and two (with eGFR >59mL/min/1.73 m2) requires estimation of kidney damage for at least three months as defined by structural or functional abnormalities of the kidney, manifested by either:Pathological abnormalities or Markers of kidney damage (including abnormalities in the composition of the blood or urine or abnormalities in imaging tests). Lab Interpretation Abnormal (test code = 53431-0) [facility] [id number] 02:20:25COVID DMT InterpretationInterpretation/Recommendations:Molecular NAAT Tests for Active Infection with the SARS-CoV-2 Virus:The patient has currently tested negative for the SARS-CoV-2 virus that causesCOVID-19 illness. This most likely indicates that the patient does not have an active infection withthe SARS-CoV-2 virus. However, infection is not completely ruled out as the false negative rate for molecular NAAT testing using a nasopharyngeal sample can be up to 30%, mostly dependent on the timingof sample collection in relation to illness onset and any deficiencies in sampling techniques. If the patient has symptoms concerning for COVID-19 illness, a repeat NAAT test (PCR, Rapid ID Now, etc.) should be performed, at which time the SARS-CoV-2 virus - if present - may have reached a detectable viral load (usually peaking by the end of the first week of symptoms). Tests for IgM and/or IgG Antibodies to the SARS-CoV-2 Virus:Testing for IgM and IgG antibodies approximately 3 weeks after illness o nset will likely indicate if the patient has produced antibodies to the SARS-CoV-2 virus. However, some patients may take longer to develop detectable antibodies, while others infected with SARS-CoV-2 may never develop antibodies, particularly those who have had mild or asymptomatic illness. Of note, if the patient has been vaccinated earlier than 1-2 weeks prior to antibody testing, any positive SARS-CoV-2 IgG antibody result is likely due to vaccination. The specific duration and strength of immunity from SARS-CoV-2 IgG antibodies is highly variable between individuals and is dependent on a variety of factors, including infection vs. vaccination response, initial infection severity, the strengthof the patient's own immune system, and the variants to which the patient has been exposed. ? ------- Interpretation Result Comments:These interpretation comments are based upon all COVID-19 testing the patient has had at [facility], includingmolecular NAAT testing (more commonly known as PCR testing and Rapid ID Now testing) and antibody testing. It does not take into account any testing that a patient has had outside of the [facility] medical record. [facility] SERVICESCOVID [id number] Rapid ID NOW (no units) ? ? Date ? Value ? 01/22/2021 ? Not Detected ? ? ? 07/19/2020 ? Not Detected ? ? ? 07/12/2020 ? Positive (A) ? ? ? 06/21/2020 ? Positive (A) ? [facility] [id number] 02:20:25COVID DMT InterpretationInterpretation/Recommendations:Molecular NAAT Tests for Active Infection with the SARS-CoV-2 Virus:The patient has currently tested negative for the SARS-CoV-2 virus that causesCOVID-19 illness. This most likely indicates that the patient does not have an active infection withthe SARS-CoV-2 virus. However, infection is not completely ruled out as the false negative rate for m olecular NAAT testing using a nasopharyngeal sample can be up to 30%, mostly dependent on the timingof sample collection in relation to illness onset and any deficiencies in sampling techniques. If the patient has symptoms concerning for COVID-19 illness, a repeat NAAT test (PCR, Rapid ID Now, etc.) should be performed, at which time the SARS-CoV-2 virus - if present - may have reached a detectable viral load (usually peaking by the end of the first week of symptoms). Tests for IgM and/or IgG Antibodies to the SARS-CoV-2 Virus:Testing for IgM and IgG antibodies approximately 3 weeks after illness onset will likely indicate if the patient has produced antibodies to the SARS-CoV-2 virus. However, some patients may take longer to develop detectable antibodies, while others infected with SARS-CoV-2 may never develop antibodies, particularly those who have had mild or asymptomatic illness. Of note, if the patient has been vaccinated earlier than 1-2 weeks prior to antibody testing, any positive SARS -CoV-2 IgG antibody result is likely due to vaccination. The specific duration and strength of immunity from SARS-CoV-2 IgG antibodies is highly variable between individuals and is dependent on a variety of factors, including infection vs. vaccination response, initial infection severity, the strengthof the patient's own immune system, and the variants to which the patient has been exposed. ? ------- Interpretation Result Comments:These interpretation comments are based upon all COVID-19 testing the patient has had at [facility], includingmolecular NAAT testing (more commonly known as PCR testing and Rapid ID Now testing) and antibody testing. It does not take into account any testing that a patient has had outside of the [facility] medical record. [facility] SERVICESCOVID [id number] Rapid ID NOW (no units) ? ? Date ? Value ? 01/22/2021 ? Not Detected ? ? ? 07/19/2020 ? Not Detected ? ? ? 07/12/2020 ? Positive (A) ? ? ? 06/21/2020 ? Positive (A) ? [facility] SERVICESUnThe [facility] CampusN- TERMINAL [id number] 02:11:39 Test Item Value Reference Range Interpretation Comments NT-proBNP (test code 64903 pg/mL See_Comment H [Autom ated = 1287492642) message] The system which generated this result transmitted reference range : <=125. The reference range was not used to interpret this result as normal/abnormal . HAVEN (test code = HAVEN) Biotin has been reported to cause a negative bias, interpret results relative to patient's use of biotin. Lab Interpretation Abnormal (test code = 96569-6) [facility] [id number] 02:11:39 Test Item Value Reference Range Interpretation Comments NT-proBNP (test code 62991 pg/mL See_Comment H [Autom ated = 7032575328) message] The system which generated this result transmitted reference range : <=125. The reference range was not used to interpret this result as normal/abnormal . HAVEN (test code = HAVEN) Biotin has been reported to cause a negative bias, interpret results relative to patient's use of biotin. Lab Interpretation Abnormal (test code = 73312-6) [facility] Arterial Blood Gas.2021-01-24 01:32:02 Test Item Value Reference Range Interpretation Comments PH (test code = 2) 7.35-7.45 L PCO2 (test code = See_Comment [Automat ed message] 8368811008) The system [employer] generated this result transmitted ref erence range: 35 - 45 mmHg. The reference r fernando was not used to interpret this result as normal/abnor mal. PO2 (test code = See_Comment H [Automated message] 9495122806) The system [employer] generated this result transmitted ref erence range: 80 - 100 mmHg. The reference r fernando was not used to interpret this result as normal/abnor mal. HCO3 (test code = See_Comment L [Automate d message] 1852076779) The system [employer] generated this result transmitted ref erence range: 22 - 26 mEq/L. The reference r fernando was not used to interpret this result as normal/abnor mal. BE (test code = See_Comment L [Automated message] 1213451503) The system [employer] generated this result transmitted ref erence range: -3.0 - 3 .0 mEq/L. The refe rence range was not u sed to interpret this result as normal/abnor mal. Lab Interpretation (test Abnormal code = 03933-0) [facility] Arterial Blood Gas.2021-01-24 01:32:02 Test Item Value Reference Range Interpretation Comments PH (test code = 2) 7.35-7.45 L PCO2 (test code = See_Comment [Automat ed message] 2609685937) The system [employer] generated this result transmitted ref erence range: 35 - 45 mmHg. The reference r fernando was not used to interpret this result as normal/abnor mal. PO2 (test code = See_Comment H [Automated message] 2612762786) The system [employer] generated this result transmitted ref erence range: 80 - 100 mmHg. The reference r fernando was not used to interpret this result as normal/abnor mal. HCO3 (test code = See_Comment L [Automate d message] 8067305511) The system [employer] generated this result transmitted ref erence range: 22 - 26 mEq/L. The reference r fernando was not used to interpret this result as normal/abnor mal. BE (test code = See_Comment L [Automated message] 7774417275) The system [employer] generated this result transmitted ref erence range: -3.0 - 3 .0 mEq/L. The refe rence range was not u sed to interpret this result as normal/abnor mal. Lab Interpretation (test Abnormal code = 42046-3) [facility] [id number] 12:54:00Armando Walls DO ? ? 01/24/2021 ?7:56 AMCritical CarePerformed by: Armando Walls DOAuthorized by: Armando Walls DO Critical care provider statement: ?Critical care time (minutes): ?240 ?Critical care time was exclusive of: ?Separately billable procedures and treating other patients ?Critical care was necessary to treat or prevent imminent or life-threatening deterioration of the following conditions: ?Respiratory failure, sepsis and shock ?Critical care was time spent personally by me on the following activities: ?Ordering and performing treatments and interventions, re-evaluation of patient's condition, obtaining history from patient or surrogate, examination of patient, evaluation of patient's response to treatment, ordering and review of laboratory studies, ordering and review of radiographic studies, development of treatment plan with patient or surrogate, discussions with consultants and pulse oximetryComments: ? Given the critical condition in which sign out was given, the patient was immediately assessed by myself and the nurse, and cardiac monitoring initiated due to the potential for rapid decompensation of the patient's clinical condition. During the course of the patient's stay, I spent a considerable amount of time at the bedside performing serial re-evaluations of the patient's hemodynamic and clinical status because of the recognized potential threat to life or limb in this condition. I then had a chance to review not only all of the available current laboratory andradiographic studies obtained today, but I also reviewed old records available to me at the time. Additionally, any ancillary information available including curriculum development specialist records were reviewed. Sequentialvital signs were obtained. Critical Care time reported above was performed exclusive of billable proceduresUnThe [facility] Critical [id number] 12:54:00Armando Walls DO ? ? 01/24/2021 ?7:56 AMCritical CarePerformed by: Armando Walls DOAuthorized by: Armando Walls DO Critical care provider statement: ?Critical care time (minutes): ?240 ?Critical care time was exclusive of: ?Separately billable procedures and treating other patients ?Critical care was necessary to treat or prevent imminent or life-threatening deterioration of the following conditions: ?Respiratory failure, sepsis and shock ?Critical care was time spent personally by me on the following activities: ?Ordering and performing treatments and interventions, re-evaluation of patient's condition, obtaining history from patient or surrogate, examination of patient, evaluation of patient's response to treatment, ordering and review of laboratory studies, ordering and review of radiographic studies, development of treatment plan with patient or surrogate, discussions with consultants and pulse oximetryComments: ? Given the critical condition in which sign out was given, the patient was immediately assessed by myself and the nurse, and cardiac monitoring initiated due to the potential for rapid decompensation of the patient's clinical condition. During the course of the patient's stay, I spent a considerable amount of time at the bedside performing serial re-evaluations of the patient's hemodynamic and clinical status because of the recognized potential threat to life or limb in this condition. I then had a chance to review not only all of the available current laboratory andradiographic studies obtained today, but I also reviewed old records available to me at the time. Additionally, any ancillary information available including curriculum development specialist records were reviewed. Sequentialvital signs were obtained. Critical Care time reported above was performed exclusive of billable proceduresUnThe [facility] CampusAC PANEL 21 + LACTIC [id number] 11:40:00 Test Item Value Reference Range Interpretation Comments PH (test code = 7.32-7.42 LL 8572847097) PCO2 SADIA (test code = See_Comment [Auto mated 1161912475) message] The sy stem which generated this result transmitted reference range : 41 - 51 mmHg. The reference range was not used to interpret this result as normal/abnormal . PO2 SADIA (test code = See_Comment [Autom ated 0736397870) message] The sy stem which generated this result transmitted reference range : 25 - 40 mmHg. The reference range was not used to interpret this result as normal/abnormal . HCO3 SADIA (test code = See_Comment L [Auto mated 0318601150) message] The sy stem which generated this result transmitted reference range : 24 - 28 mEq/L. The reference range was not used to interpret this result as normal/abnormal . AC VBE(BEAKER) (test mEq/L code = 6465571268) THB SADIA (test code = 12.9 g/dL 13.5-18.0 L 3111539046) %O2HB SADIA (test code = 55.7 % 52.0-63.0 4048897335) %COHB SADIA (test code = 0.6 % 0.0-1.5 6326936948) %METHB SADIA (test code = 0.3 % 0.4-1.5 L 2574856445) VOL%O2 SADIA (test code = 10.1 % 6.0-12.0 5182877822) NA (test code = 144 mmol/L 135-145 2174918193) K+ (test code = 3.0 mmol/L 3.5-5.0 L 0396314194) AC CA IONZ (test code = 3.90 mg/dL 4.50-5.30 L 4948019074) GLUCOSE (test code = 148 mg/dL 70-110 H 1336748122) LACTIC ACID (test code 8.51 mmol/L 0.50-2.20 H = 8930691473) Lab Interpretation Abnormal (test code = 49617-9) [facility] [id number] 11:40:00 Test Item Value Reference Range Interpretation Comments PH (test code = 7.32-7.42 LL 8286497041) PCO2 SADIA (test code = See_Comment [Auto mated 5598289611) message] The sy stem which generated this result transmitted reference range : 41 - 51 mmHg. The reference range was not used to interpret this result as normal/abnormal . PO2 SADIA (test code = See_Comment [Autom ated 0250731276) message] The sy stem which generated this result transmitted reference range : 25 - 40 mmHg. The reference range was not used to interpret this result as normal/abnormal . HCO3 SADIA (test code = See_Comment L [Auto mated 7960107385) message] The sy stem which generated this result transmitted reference range : 24 - 28 mEq/L. The reference range was not used to interpret this result as normal/abnormal . AC VBE(BEAKER) (test mEq/L code = 9180875272) THB SADIA (test code = 12.9 g/dL 13.5-18.0 L 3719838087) %O2HB SADIA (test code = 55.7 % 52.0-63.0 5443272666) %COHB SADIA (test code = 0.6 % 0.0-1.5 3604266111) %METHB SADIA (test code = 0.3 % 0.4-1.5 L 7833709419) VOL%O2 SADIA (test code = 10.1 % 6.0-12.0 8432340185) NA (test code = 144 mmol/L 135-145 5947099923) K+ (test code = 3.0 mmol/L 3.5-5.0 L 8421514627) AC CA IONZ (test code = 3.90 mg/dL 4.50-5.30 L 0153964671) GLUCOSE (test code = 148 mg/dL 70-110 H 4310499547) LACTIC ACID (test code 8.51 mmol/L 0.50-2.20 H = 0426991670) Lab Interpretation Abnormal (test code = 93551-7) [facility] 08[facility]44:00 Test Item Value Reference Range Interpretation Comments APPEARANCE (test code = Turbid Clear A 8291543679) COLOR (test code = Radha Yellow A 8533261090) PH (test code = 4.8-8.0 6713807297) SP GRAVITY (test code = 1.003-1.030 0955136328) GLU U QUAL (test code = Normal Normal 8851903205) BLOOD (test code = 2+ Negative A 8388552698) KETONES (test code = Negative Negative 6695378995) PROTEIN (test code = 500 mg/dL Negative A 2887-8) UROBILIN (test code = 2.0 mg/dL Normal A 7487950778) BILIRUBIN (test code = Negative Negative 1546384751) NITRITE (test code = Negative Negative 0511939059) LEUK JOHAN (test code = 75/uL Negative A 8040130236) RBC/HPF (test code = See_Comment H [Autom ated message] 3037852549) The system [employer] generated this result transmit josé antonio reference range : 0 - 3 HPF. The refe rence range was not u sed to interpret th is result as normal/abnormal . WBC/HPF (test code = See_Comment H [Autom ated message] 6670698648) The system [employer] generated this result transmit josé antonio reference range : 0 - 5 HPF. The refe rence range was not u sed to interpret th is result as normal/abnormal . BACTERIA (test code = Moderate Negative A 2280079122) MUCOUS (test code = Slight Negative LPF A 2902244428) AMORPHOUS (test code = Rare Rare HPF 4885246838) WBC CLUMPS (test code = See_Comment H [Au tomated message] 3974640571) The system [employer] generated this result transmit josé antonio reference range : <=1 HPF. The refere nce range was not u sed to interpret th is result as normal/abnormal . YEAST BUD (test code = See_Comment H [Aut omated message] 9542854312) The system [employer] generated this result transmit josé antonio reference range : <=1 HPF. The refere nce range was not u sed to interpret th is result as normal/abnormal . TRANS EPI (test code = See_Comment H [Aut omated message] 4836303989) The system [employer] generated this result transmit josé antonio reference range : <=1 HPF. The refere nce range was not u sed to interpret th is result as normal/abnormal . Lab Interpretation (test Abnormal code = 74625-9) [facility] 08:44:00 Test Item Value Reference Range Interpretation Comments APPEARANCE (test code = Turbid Clear A 9593478767) COLOR (test code = Radha Yellow A 7477616739) PH (test code = 4.8-8.0 1427573834) SP GRAVITY (test code = 1.003-1.030 9614552985) GLU U QUAL (test code = Normal Normal 8985372812) BLOOD (test code = 2+ Negative A 6295532995) KETONES (test code = Negative Negative 9556265211) PROTEIN (test code = 500 mg/dL Negative A 2887-8) UROBILIN (test code = 2.0 mg/dL Normal A 5079690017) BILIRUBIN (test code = Negative Negative 3555190710) NITRITE (test code = Negative Negative 9717213632) LEUK JOHAN (test code = 75/uL Negative A 5629518085) RBC/HPF (test code = See_Comment H [Autom ated message] 5643449424) The system [employer] generated this result transmit josé antonio reference range : 0 - 3 HPF. The refe rence range was not u sed to interpret th is result as normal/abnormal . WBC/HPF (test code = See_Comment H [Autom ated message] 6626220812) The system [employer] generated this result transmit josé antonio reference range : 0 - 5 HPF. The refe rence range was not u sed to interpret th is result as normal/abnormal . BACTERIA (test code = Moderate Negative A 0084991475) MUCOUS (test code = Slight Negative LPF A 5986355513) AMORPHOUS (test code = Rare Rare HPF 7284497021) WBC CLUMPS (test code = See_Comment H [Au tomated message] 8841322803) The system [employer] generated this result transmit josé antonio reference range : <=1 HPF. The refere nce range was not u sed to interpret th is result as normal/abnormal . YEAST BUD (test code = See_Comment H [Aut omated message] 1400199650) The system [employer] generated this result transmit josé antonio reference range : <=1 HPF. The refere nce range was not u sed to interpret th is result as normal/abnormal . TRANS EPI (test code = See_Comment H [Aut omated message] 9638005730) The system [employer] generated this result transmit josé antonio reference range : <=1 HPF. The refere nce range was not u sed to interpret th is result as normal/abnormal . Lab Interpretation (test Abnormal code = 82523-4) [facility] [id number] 07:36:10Sandra David, DO ? ? 01/23/2021 ?2:36 [facility] [place] LinePerformed by: Sandra David DOAuthorized by: Sandra David DO Consent: ?Consent obtained: ?Verbal ?Consent given by: ?PatientPre-procedure details: ?Hand hygiene: Hand hygiene performed prior to insertion ? ?Sterile barrier technique: All elements of maximal sterile technique followed ? ?Skin preparation: ?ChloraPrep ?Skin preparation agent: Skin preparation agent completely dried prior to procedure ?Anesthesia (see MAR for exactdosages): ?Anesthesia method: ?Local infiltration ?Local anesthetic: ?Lidocaine 1% w/o epiProceduredetails: ?Location: ?R subclavian ?Patient position: ?Flat ?Procedural supplies: ?Triple lumen ?Cath eter size: ?7.5 Fr ?Landmarks identified: yes ? ?Ultrasound guidance: no ? ?Number of attempts: ?1 ?Successful placement: yes ?Post-procedure details: ?Post-procedure: ?Dressing applied and line sutured ?Assessment: ?Blood return through all ports, free fluid flow, no pneumothorax on x-ray and placement verified by x-ray ?Patient tolerance of procedure: ?Tolerated well, no immediate complicationsUnAntelope [facility] [id number] 07:36:10 Sandra David, DO ? ? 01/23/2021 ?2:36 [facility] [place] LinePerformed by: Sandra David, DOAuthorized by: Sandra David DO Consent: ?Consent obtained: ?Verbal ?Consent given by: ?PatientPre-procedure details: ?Hand hygiene: Hand hygiene performed prior to insertion ? ?Sterile barrier technique: All elements of maximal sterile technique followed ? ?Skin preparation: ?ChloraPrep ?Skin preparation agent: Skin preparation agent completely dried prior to procedure ?Anesthesia (see MAR for exactdosages): ?Anesthesia method: ?Local infiltration ?Local anesthetic: ?Lidocaine 1% w/o epiProceduredetails: ?Location: ?R subclavian ?Patient position: ?Flat ?Procedural supplies: ?Triple lumen ?Cath eter size: ?7.5 Fr ?Landmarks identified: yes ? ?Ultrasound guidance: no ? ?Number of attempts: ?1 ?Successful placement: yes ?Post-procedure details: ?Post-procedure: ?Dressing applied and line sutured ?Assessment: ?Blood return through all ports, free fluid flow, no pneumothorax on x-ray and placement verified by x-ray ?Patient tolerance of procedure: ?Tolerated well, no immediate complicationsUnS[facility] WITH [id number] 05:33:38 Test Item Value Reference Range Interpretation Comments WBC (test code = See_Comment H [Automated 6690-2) message] The system which generated this result transmitted reference range : 4.20 - 10.70 10*3/?L. The reference range was not used to interpret this result as normal/abnormal . RBC (test code = See_Comment [Automated 789-8) message] The system which generated this result transmitted reference range : 4.26 - 5.52 10*6/?L. The reference range was not used to interpret this result as normal/abnormal . HGB (test code = 12.5 g/dL 12.2-16.4 718-7) HCT (test code = 43.3 % 38.4-49.3 4544-3) MCV (test code = 83.0 fL 81.7-95.6 787-2) MCH (test code = 23.9 pg 26.1-32.7 L 785-6) MCHC (test code = 28.9 g/dL 31.2-35.0 L 786-4) RDW-SD (test code = 62.4 fL 38.5-51.6 H 45948-5) RDW-CV (test code = 21.2 % 12.1-15.4 H 788-0) PLT (test code = See_Comment [Automated 777-3) message] The system which generated this result transmitted reference range : 150 - 328 10*3/?L. The reference range was not used to interpret this result as normal/abnormal . MPV (test code = 8.5 fL 9.8-13.0 L 71566-1) NRBC/100 WBC (test See_Comment [Automat ed code = 7551534000) message] The system which generated this result transmitted reference range : 0.0 - 10.0 /100 WBCs. The reference range was not used to interpret this result as normal/abnormal . NRBC x10^3 (test code <0.01 See_Comment [Auto mated = 6165968778) message] The system which generated this result transmitted reference range : 10*3/?L. The reference range was not used to interpret this result as normal/abnormal . GRAN MAT (NEUT) % 85.5 % (test code = 770-8) IMM GRAN % (test code 0.70 % = 0195852026) LYMPH % (test code = 7.5 % 736-9) MONO % (test code = 5.9 % 5905-5) EOS % (test code = 0.1 % 713-8) BASO % (test code = 0.3 % 706-2) GRAN MAT x10^3(ANC) 11.82 10*3/uL 1.99-6.95 H (test code = 8740382477) IMM GRAN x10^3 (test 0.09 10*3/uL 0.00-0.06 H code = 5936819399) LYMPH x10^3 (test 1.04 10*3/uL 1.09-3.23 L code = 731-0) MONO x10^3 (test code 0.82 10*3/uL 0.36-1.02 = 742-7) EOS x10^3 (test code <0.03 0.06-0.53 L = 711-2) BASO x10^3 (test code 0.04 10*3/uL 0.01-0.09 = 704-7) ELLIPTO/OVAL (test 2+ See_Comment A [Automat ed code = 83752-9) message] The system which generated this result transmitted reference range : (none). The reference range was not used to interpret this result as normal/abnormal . POLYCHROMASIA (test 2+ See_Comment [Automa josé antonio code = 23527-0) message] The system which generated this result transmitted reference range : 2+. The referen ce range was not used to interpr et this result as normal/abnormal . BANDS (test code = MARKED INCREASED A 3136538157) REACT LYMPHS (test Rare code = 0997715423) GIANT PLATELETS (test Present See_Comment A [Auto mated code = 5908-9) message] The system which generated this result transmitted reference range : (none). The reference range was not used to interpret this result as normal/abnormal . Lab Interpretation Abnormal (test code = 64450-1) [facility] WITH [id number] 05:33:38 Test Item Value Reference Range Interpretation Comments WBC (test code = See_Comment H [Automated 6690-2) message] The system which generated this result transmitted reference range : 4.20 - 10.70 10*3/?L. The reference range was not used to interpret this result as normal/abnormal . RBC (test code = See_Comment [Automated 789-8) message] The system which generated this result transmitted reference range : 4.26 - 5.52 10*6/?L. The reference range was not used to interpret this result as normal/abnormal . HGB (test code = 12.5 g/dL 12.2-16.4 718-7) HCT (test code = 43.3 % 38.4-49.3 4544-3) MCV (test code = 83.0 fL 81.7-95.6 787-2) MCH (test code = 23.9 pg 26.1-32.7 L 785-6) MCHC (test code = 28.9 g/dL 31.2-35.0 L 786-4) RDW-SD (test code = 62.4 fL 38.5-51.6 H 21125-2) RDW-CV (test code = 21.2 % 12.1-15.4 H 788-0) PLT (test code = See_Comment [Automated 777-3) message] The system which generated this result transmitted reference range : 150 - 328 10*3/?L. The reference range was not used to interpret this result as normal/abnormal . MPV (test code = 8.5 fL 9.8-13.0 L 16567-5) NRBC/100 WBC (test See_Comment [Automat ed code = 9614871442) message] The system which generated this result transmitted reference range : 0.0 - 10.0 /100 WBCs. The reference range was not used to interpret this result as normal/abnormal . NRBC x10^3 (test code <0.01 See_Comment [Auto mated = 9065827983) message] The system which generated this result transmitted reference range : 10*3/?L. The reference range was not used to interpret this result as normal/abnormal . GRAN MAT (NEUT) % 85.5 % (test code = 770-8) IMM GRAN % (test code 0.70 % = 8542669631) LYMPH % (test code = 7.5 % 736-9) MONO % (test code = 5.9 % 5905-5) EOS % (test code = 0.1 % 713-8) BASO % (test code = 0.3 % 706-2) GRAN MAT x10^3(ANC) 11.82 10*3/uL 1.99-6.95 H (test code = 1476770996) IMM GRAN x10^3 (test 0.09 10*3/uL 0.00-0.06 H code = 8469568311) LYMPH x10^3 (test 1.04 10*3/uL 1.09-3.23 L code = 731-0) MONO x10^3 (test code 0.82 10*3/uL 0.36-1.02 = 742-7) EOS x10^3 (test code <0.03 0.06-0.53 L = 711-2) BASO x10^3 (test code 0.04 10*3/uL 0.01-0.09 = 704-7) ELLIPTO/OVAL (test 2+ See_Comment A [Automat ed code = 73342-8) message] The system which generated this result transmitted reference range : (none). The reference range was not used to interpret this result as normal/abnormal . POLYCHROMASIA (test 2+ See_Comment [Automa josé antonio code = 82188-1) message] The system which generated this result transmitted reference range : 2+. The referen ce range was not used to interpr et this result as normal/abnormal . BANDS (test code = MARKED INCREASED A 5739942400) REACT LYMPHS (test Rare code = 0689259007) GIANT PLATELETS (test Present See_Comment A [Auto mated code = 5908-9) message] The system which generated this result transmitted reference range : (none). The reference range was not used to interpret this result as normal/abnormal . Lab Interpretation Abnormal (test code = 72189-2) [facility] [id number] 05:29:48 Test Item Value Reference Range Interpretation Comments TSH (test code = See_Comment [Automated message] 0319545510) The system [employer] generated this result transmitted ref erence range: 0.45 - 4 .70 mIU/L. The refe rence range was not u sed to interpret this result as normal/abnor mal. Lab Interpretation (test Normal code = 00000-7) [facility] [id number] 05:29:48 Test Item Value Reference Range Interpretation Comments TSH (test code = See_Comment [Automated message] 5092980009) The system [employer] generated this result transmitted ref erence range: 0.45 - 4 .70 mIU/L. The refe rence range was not u sed to interpret this result as normal/abnor mal. Lab Interpretation (test Normal code = 79179-8) [facility] [id number] 05:12:57 Test Item Value Reference Interpretation Comments Range TROPONIN I (test 0.034 ng/mL See_Comment [Automated code = 8077447748) message] The system which generated this result transmitted reference range : <=0.034. The reference range was not used to interpret this result as normal/abnormal . HAVEN (test code = Reference (Normal) HAVEN) Range (defined by the 99th percentile reference limit): <= 0.034 ng/mL Note: Cardiac troponin begins to rise 3-4 hours after the onset of ischemia. Repeat in 4-6 hours if the sample was drawn within 3-4 hours of the onset of the symptom and found normal. Diagnosis of myocardial injury is made with acute changes in cTn concentrations with at least one serial sample above the 99th percentile upper reference limit (URL), taken together with the patient's clinical presentation. Biotin has been reported to cause a negative bias, interpret results relative to patient's use of biotin. Lab Interpretation Normal (test code = 62878-0) [facility] [id number] 05:12:57 Test Item Value Reference Interpretation Comments Range TROPONIN I (test 0.034 ng/mL See_Comment [Automated code = 5043360255) message] The system which generated this result transmitted reference range : <=0.034. The reference range was not used to interpret this result as normal/abnormal . HAVEN (test code = Reference (Normal) HAVEN) Range (defined by the 99th percentile reference limit): <= 0.034 ng/mL Note: Cardiac troponin begins to rise 3-4 hours after the onset of ischemia. Repeat in 4-6 hours if the sample was drawn within 3-4 hours of the onset of the symptom and found normal. Diagnosis of myocardial injury is made with acute changes in cTn concentrations with at least one serial sample above the 99th percentile upper reference limit (URL), taken together with the patient's clinical presentation. Biotin has been reported to cause a negative bias, interpret results relative to patient's use of biotin. Lab Interpretation Normal (test code = 02561-6) [facility]2021-08-03 05:11:57 Test Item Value Reference Range Interpretation Comments MAGNESIUM (test code = 4653487742) 1.1 mg/dL 1.7-2.4 L Lab Interpretation (test code = Abnormal 81903-2) [facility] Test Item Value Reference Range Interpretation Comments MAGNESIUM (test code = 5605071531) 1.1 mg/dL 1.7-2.4 L Lab Interpretation (test code = Abnormal 03354-4) [facility] [id number] 05:08:17 Test Item Value Reference Range Interpretation Comments NT-proBNP (test code 4360 pg/mL See_Comment H [Autom ated = 9935259855) message] The system which generated this result transmitted reference range : <=125. The reference range was not used to interpret this result as normal/abnormal . HAVEN (test code = HAVEN) Biotin has been reported to cause a negative bias, interpret results relative to patient's use of biotin. Lab Interpretation Abnormal (test code = 89271-4) [facility] [id number] 05:08:17 Test Item Value Reference Range Interpretation Comments NT-proBNP (test code 4360 pg/mL See_Comment H [Autom ated = 2337342137) message] The system which generated this result transmitted reference range : <=125. The reference range was not used to interpret this result as normal/abnormal . HAVEN (test code = HAVEN) Biotin has been reported to cause a negative bias, interpret results relative to patient's use of biotin. Lab Interpretation Abnormal (test code = 92963-5) [facility] (NA, K, CL, CO2, GLUCOSE, BUN, CREATININE, CA)2021-01-23 05:06:15 Test Item Value Reference Range Interpretation Comments NA (test code = 143 mmol/L 135-145 2200952497) K (test code = 3.1 mmol/L 3.5-5.0 L 1304958109) CL (test code = 106 mmol/L 98-108 4426402721) CO2 TOTAL (test code = 20 mmol/L 23-31 L 9895599286) AGAP (test code = 2-16 H 8699868264) BUN (test code = 33 mg/dL 7-23 H 4681784089) GLUCOSE (test code = 125 mg/dL 70-110 H 1219079623) CREATININE (test code = 1.73 mg/dL 0.60-1.25 H 3189053787) CALCIUM (test code = 8.9 mg/dL 8.6-10.6 8885630486) eGFR (test code = mL/min/1.73m2 7708125663) HAVEN (test code = HAVEN) Association of Glomerular Filtration Rate (GFR) and Staging of Kidney Disease* + --+ --+ ------+| GFR (mL/min/1.73 m2) ?| With Kidney Damage ?| ?Without Kidney Damage+ --------+ --------+ +| ?>90 ?| ?Stage one ?| ? Normal ?+ ---+ ---+ -------+| ?60-89 ?| ?Stage two ?| ? Decreased GFR ? + --+ --+ ------+| ?30-59 ?| ?Stage three ?| ? Stage three ? + --+ --+ ------+| ?15-29 ?| ?Stage four ? | ? Stage four ?+ ---+ ---+ -------+| ?<15 (or dialysis) ? ?| ?Stage five ? | ? Stage five ?+ ---+ ---+ -------+ *Each stage assumes the associated GFR level has been in effect for at least three months. ?Stages 1 to 5, with or without kidney disease, indicate chronic kidney disease. Notes: Determination of stages one and two (with eGFR >59mL/min/1.73 m2) requires estimation of kidney damage for at least three months as defined by structural or functional abnormalities of the kidney, manifested by either:Pathological abnormalities or Markers of kidney damage (including abnormalities in the composition of the blood or urine or abnormalities in imaging tests). Lab Interpretation Abnormal (test code = 98332-4) [facility] 05:06:15 Test Item Value Reference Range Interpretation Comments LIPASE (test code = 1870533490) 225 U/L 0-220 H Lab Interpretation (test code = Abnormal 73669-4) [facility] (NA, K, CL, CO2, GLUCOSE, BUN, CREATININE, CA)2021-01-23 05:06:15 Test Item Value Reference Range Interpretation Comments NA (test code = 143 mmol/L 135-145 7690170095) K (test code = 3.1 mmol/L 3.5-5.0 L 3115264839) CL (test code = 106 mmol/L 98-108 9783474593) CO2 TOTAL (test code = 20 mmol/L 23-31 L 8100062010) AGAP (test code = 2-16 H 5630250611) BUN (test code = 33 mg/dL 7-23 H 8651389706) GLUCOSE (test code = 125 mg/dL 70-110 H 9392133552) CREATININE (test code = 1.73 mg/dL 0.60-1.25 H 1990485260) CALCIUM (test code = 8.9 mg/dL 8.6-10.6 8768160599) eGFR (test code = mL/min/1.73m2 4490298338) HAVEN (test code = HAVEN) Association of Glomerular Filtration Rate (GFR) and Staging of Kidney Disease* + --+ --+ ------+| GFR (mL/min/1.73 m2) ?| With Kidney Damage ?| ?Without Kidney Damage+ --------+ --------+ +| ?>90 ?| ?Stage one ?| ? Normal ?+ ---+ ---+ -------+| ?60-89 ?| ?Stage two ?| ? Decreased GFR ? + --+ --+ ------+| ?30-59 ?| ?Stage three ?| ? Stage three ? + --+ --+ ------+| ?15-29 ?| ?Stage four ? | ? Stage four ?+ ---+ ---+ -------+| ?<15 (or dialysis) ? ?| ?Stage five ? | ? Stage five ?+ ---+ ---+ -------+ *Each stage assumes the associated GFR level has been in effect for at least three months. ?Stages 1 to 5, with or without kidney disease, indicate chronic kidney disease. Notes: Determination of stages one and two (with eGFR >59mL/min/1.73 m2) requires estimation of kidney damage for at least three months as defined by structural or functional abnormalities of the kidney, manifested by either:Pathological abnormalities or Markers of kidney damage (including abnormalities in the composition of the blood or urine or abnormalities in imaging tests). Lab Interpretation Abnormal (test code = 42575-8) [facility] 05:06:15 Test Item Value Reference Range Interpretation Comments LIPASE (test code = 1218953919) 225 U/L 0-220 H Lab Interpretation (test code = Abnormal 95256-6) [facility] (ALB,T.PRO,BILI T,BU/BC,ALT,AST,ALK PHOS)2021-01-23 05:06:14 Test Item Value Reference Range Interpretation Comments TOTAL BILI (test code = 8152361709) 1.5 mg/dL 0.1-1.1 H BILI UNCON (test code = 7234729484) 0.7 mg/dL 0.1-1.1 BILI CONJ (test code = 1000117549) 0.0 mg/dL 0.0-0.3 T PROTEIN (test code = 4798413117) 7.7 g/dL 6.3-8.2 ALBUMIN (test code = 3037475731) 3.9 g/dL 3.5-5.0 ALK PHOS (test code = 1986689944) 593 U/L 34-122 H ALTv (test code = 1742-6) 92 U/L 5-50 H AST(SGOT) (test code = 8911188755) 131 U/L 13-40 H Lab Interpretation (test code = Abnormal 75785-0) [facility]61334[facility] (ALB,T.PRO,BILI T,BU/BC,ALT,AST,ALK PHOS)2021-01-23 05:06:14 Test Item Value Reference Range Interpretation Comments TOTAL BILI (test code = 9776370749) 1.5 mg/dL 0.1-1.1 H BILI UNCON (test code = 5720759285) 0.7 mg/dL 0.1-1.1 BILI CONJ (test code = 6188153897) 0.0 mg/dL 0.0-0.3 T PROTEIN (test code = 7938961155) 7.7 g/dL 6.3-8.2 ALBUMIN (test code = 3573807088) 3.9 g/dL 3.5-5.0 ALK PHOS (test code = 9017934076) 593 U/L 34-122 H ALTv (test code = 1742-6) 92 U/L 5-50 H AST(SGOT) (test code = 0967882732) 131 U/L 13-40 H Lab Interpretation (test code = Abnormal 17254-9) [facility]ID NOW RAPID TESTING)2021-01-23 05:01:34 Test Item Value Reference Range Interpretation Comments SARS-CoV-2 Rapid ID NOW Not Detected Not Detected (test code = 63097-9) HAVEN (test code = HAVEN) ID NOW COVID-19 Assay is an isothermal nucleic acid amplification test intended for the qualitative detection of nucleic acid from SARS-CoV-2 viral RNA in nasopharyngeal ([employer]) specimens. It is used under Emergency Use Authorization (EUA) by FDA. The limit of detection (LOD) of the assay is 125 Genome Equivalents/mL. A positive result is indicative of the presence of SARS-CoV-2 RNA. ?Clinical correlation with patient history and other diagnostic information is necessary to determine patient infection status. A negative (Not Detected) result does not preclude SARS-CoV-2 infection. In patients with clinical symptoms and other tests that are consistent with SARS-CoV-2 infection, negative results should be treated as presumptive negative and a new specimen should be tested with alternative PCR molecular test. Invalid: Please collect a new specimen for repeat patient testing if clinically indicated. Lab Interpretation Normal (test code = 51651-6) [facility]APID TESTING)2021-01-23 05:01:34 Test Item Value Reference Range Interpretation Comments SARS-CoV-2 Rapid ID NOW Not Detected Not Detected (test code = 41453-5) HAVEN (test code = HAVEN) ID NOW COVID-19 Assay is an isothermal nucleic acid amplification test intended for the qualitative detection of nucleic acid from SARS-CoV-2 viral RNA in nasopharyngeal ([employer]) specimens. It is used under Emergency Use Authorization (EUA) by FDA. The limit of detection (LOD) of the assay is 125 Genome Equivalents/mL. A positive result is indicative of the presence of SARS-CoV-2 RNA. ?Clinical correlation with patient history and other diagnostic information is necessary to determine patient infection status. A negative (Not Detected) result does not preclude SARS-CoV-2 infection. In patients with clinical symptoms and other tests that are consistent with SARS-CoV-2 infection, negative results should be treated as presumptive negative and a new specimen should be tested with alternative PCR molecular test. Invalid: Please collect a new specimen for repeat patient testing if clinically indicated. Lab Interpretation Normal (test code = 19075-1) [facility] / [id number] 04:57:50 Test Item Value Reference Range Interpretation Comments PROTIME PATIENT (test See_Comment [Auto mated message] code = 5964-2) The system [employer] generated this result transmitted ref erence range: 12.0 - 1 4.7 Seconds. The re ference range was not u sed to interpret this result as normal/abnor mal. INR (test code = 6301-6) Nor mal INR <1.1; Warfarin Therap eutic range 2.0 to 3. 0 or 2.5 to 3.5, dep ending upon the indica tions. Lab Interpretation (test Normal code = 49697-7) [facility] / [id number] 04:57:50 Test Item Value Reference Range Interpretation Comments PROTIME PATIENT (test See_Comment [Auto mated message] code = 5964-2) The system [employer] generated this result transmitted ref erence range: 12.0 - 1 4.7 Seconds. The re ference range was not u sed to interpret this result as normal/abnor mal. INR (test code = 6301-6) Nor mal INR <1.1; Warfarin Therap eutic range 2.0 to 3. 0 or 2.5 to 3.5, dep ending upon the indica tions. Lab Interpretation (test Normal code = 92931-5) [facility] + LACTIC [id number] 04:39:55 Test Item Value Reference Range Interpretation Comments PH (test code = 7.32-7.42 L 7277374653) PCO2 SADIA (test code = See_Comment [Auto mated [id number]) message] The sy stem which generated this result transmitted reference range : 41 - 51 mmHg. The reference range was not used to interpret this result as normal/abnormal . PO2 SADIA (test code = See_Comment [Autom ated [id number]) message] The sy stem which generated this result transmitted reference range : 25 - 40 mmHg. The reference range was not used to interpret this result as normal/abnormal . HCO3 SADIA (test code = See_Comment L [Auto mated [id number]) message] The sy stem which generated this result transmitted reference range : 24 - 28 mEq/L. The reference range was not used to interpret this result as normal/abnormal . AC VBE(BEAKER) (test mEq/L code = 5129106717) THB SADIA (test code = 13.8 g/dL 13.5-18.0 4711790232) %O2HB SADIA (test code = 61.3 % 52.0-63.0 0356968484) %COHB SADIA (test code = 0.9 % 0.0-1.5 6359646456) %METHB SADIA (test code = 0.3 % 0.4-1.5 L 5237138105) VOL%O2 SADIA (test code = 11.9 % 6.0-12.0 9533402325) NA (test code = 143 mmol/L 135-145 1262709217) K+ (test code = 3.2 mmol/L 3.5-5.0 L 2097169489) AC CA IONZ (test code = 4.40 mg/dL 4.50-5.30 L 9860332357) GLUCOSE (test code = 124 mg/dL 70-110 H 3209552578) LACTIC ACID (test code 7.22 mmol/L 0.50-2.20 H = 0199971957) Lab Interpretation Abnormal (test code = 37296-1) [facility] + LACTIC [id number] 04:39:55 Test Item Value Reference Range Interpretation Comments PH (test code = 7.32-7.42 L 0436852822) PCO2 SADIA (test code = See_Comment [Auto mated 6771426323) message] The sy stem which generated this result transmitted reference range : 41 - 51 mmHg. The reference range was not used to interpret this result as normal/abnormal . PO2 SADIA (test code = See_Comment [Autom ated 8801501997) message] The sy stem which generated this result transmitted reference range : 25 - 40 mmHg. The reference range was not used to interpret this result as normal/abnormal . HCO3 SADIA (test code = See_Comment L [Auto mated 4069652652) message] The sy stem which generated this result transmitted reference range : 24 - 28 mEq/L. The reference range was not used to interpret this result as normal/abnormal . AC VBE(BEAKER) (test mEq/L code = 5111315618) THB SADIA (test code = 13.8 g/dL 13.5-18.0 0104202291) %O2HB SADIA (test code = 61.3 % 52.0-63.0 2574856196) %COHB SADIA (test code = 0.9 % 0.0-1.5 3032041057) %METHB SADIA (test code = 0.3 % 0.4-1.5 L 8135993206) VOL%O2 SADIA (test code = 11.9 % 6.0-12.0 5891446953) NA (test code = 143 mmol/L 135-145 4894864102) K+ (test code = 3.2 mmol/L 3.5-5.0 L 2901273922) AC CA IONZ (test code = 4.40 mg/dL 4.50-5.30 L 1540605233) GLUCOSE (test code = 124 mg/dL 70-110 H 1937034371) LACTIC ACID (test code 7.22 mmol/L 0.50-2.20 H = 0313258367) Lab Interpretation Abnormal (test code = 55870-0) [facility] acute hospital W/AUTO [id number] 10:19:00 Test Item Value Reference Range Interpretation Comments WHITE BLOOD CELL (test 4.7 K/mm3 4.5-12.5 N code = WBC) RED BLOOD CELL (test code 3.75 mill/mm3 4.0-5.8 L = RBC) HEMOGLOBIN (test code = 8.1 gram/dL 13.0-17.5 L HGB) HEMATOCRIT (test code = 31.1 % 42.0-52.0 L HCT) MEAN CELL VOLUME (test 82.9 fL 80-98 N code = MCV) MEAN CELL HGB (test code 21.6 picogram 27.0-33.0 L = MCH) MEAN CELL HGB 26.0 gram/dL 33.0-36.0 L CONCETRATION (test code = MCHC) RED CELL DISTRIBUTION 19.8 % 11.6-16.2 H WIDTH (test code = RDW) RED CELL DISTRIBUTION 59.3 fL 37.0-51.0 H WIDTH SD (test code = RDW-SD) PLATELET COUNT (test code 220 K/mm3 150-450 N = PLT) MEAN PLATELET VOLUME 8.3 fL 6.7-11.0 N (test code = MPV) NEUTROPHIL % (test code = 62.4 % 39.0-69.0 N NT%) IMMATURE GRANULOCYTE % 0.4 % 0.0-5.0 N (test code = IG%) LYMPHOCYTE % (test code = 20.0 % 25.0-55.0 L LY%) MONOCYTE % (test code = 7.5 % 0.0-10.0 N MO%) EOSINOPHIL % (test code = 8.8 % 0.0-5.0 H EO%) BASOPHIL % (test code = 0.9 % 0.0-1.0 N BA%) NUCLEATED RBC % (test 0.0 % 0-0 N code = NRBC%) NEUTROPHIL # (test code = 2.90 K/mm3 1.8-7.7 N NT#) IMMATURE GRANULOCYTE # 0.02 x10 3/uL 0-0.03 N (test code = IG#) LYMPHOCYTE # (test code = 0.93 K/mm3 1.0-5.0 L LY#) MONOCYTE # (test code = 0.35 K/mm3 0-0.8 N MO#) EOSINOPHIL # (test code = 0.41 K/mm3 0.0-0.5 N EO#) BASOPHIL # (test code = 0.04 K/mm3 0.0-0.2 N BA#) NUCLEATED RBC # (test 0.00 K/mm3 0.0-0.1 N code = NRBC#) MANUAL DIFF REQUIRED NO, ONLY SCAN NEEDED (test code = MDIFF) DIFFERENTIAL [id number] 10:19:00 Test Item Value Reference Range Interpretation Comments STAIN ACCEPTABILITY (test STAIN ACCEPTABLE code = STN ACCEPTABLE) HYPOCHROMIA (test code = 2+ HYPO) POIKILOCYTOSIS (test code = 1+ POIK) ANISOCYTOSIS (test code = 1+ ANISO) MICROCYTOSIS (test code = 1+ MICR) PLATELET ESTIMATE (test code ADEQUATE = PLTEST) PLATELET MORPHOLOGY (test NORMAL code = PLTMORPH) CBC W/AUTO [id number] 09:48:00 Test Item Value Reference Range Interpretation Comments WHITE BLOOD CELL (test 4.7 K/mm3 4.5-12.5 N code = WBC) RED BLOOD CELL (test code 3.75 mill/mm3 4.0-5.8 L = RBC) HEMOGLOBIN (test code = 8.1 gram/dL 13.0-17.5 L HGB) HEMATOCRIT (test code = 31.1 % 42.0-52.0 L HCT) MEAN CELL VOLUME (test 82.9 fL 80-98 N code = MCV) MEAN CELL HGB (test code 21.6 picogram 27.0-33.0 L = MCH) MEAN CELL HGB 26.0 gram/dL 33.0-36.0 L CONCETRATION (test code = MCHC) RED CELL DISTRIBUTION 19.8 % 11.6-16.2 H WIDTH (test code = RDW) RED CELL DISTRIBUTION 59.3 fL 37.0-51.0 H WIDTH SD (test code = RDW-SD) PLATELET COUNT (test code 220 K/mm3 150-450 N = PLT) MEAN PLATELET VOLUME 8.3 fL 6.7-11.0 N (test code = MPV) NEUTROPHIL % (test code = 62.4 % 39.0-69.0 N NT%) IMMATURE GRANULOCYTE % 0.4 % 0.0-5.0 N (test code = IG%) LYMPHOCYTE % (test code = 20.0 % 25.0-55.0 L LY%) MONOCYTE % (test code = 7.5 % 0.0-10.0 N MO%) EOSINOPHIL % (test code = 8.8 % 0.0-5.0 H EO%) BASOPHIL % (test code = 0.9 % 0.0-1.0 N BA%) NUCLEATED RBC % (test 0.0 % 0-0 N code = NRBC%) NEUTROPHIL # (test code = 2.90 K/mm3 1.8-7.7 N NT#) IMMATURE GRANULOCYTE # 0.02 x10 3/uL 0-0.03 N (test code = IG#) LYMPHOCYTE # (test code = 0.93 K/mm3 1.0-5.0 L LY#) MONOCYTE # (test code = 0.35 K/mm3 0-0.8 N MO#) EOSINOPHIL # (test code = 0.41 K/mm3 0.0-0.5 N EO#) BASOPHIL # (test code = 0.04 K/mm3 0.0-0.2 N BA#) NUCLEATED RBC # (test 0.00 K/mm3 0.0-0.1 N code = NRBC#) MANUAL DIFF REQUIRED NO, ONLY SCAN NEEDED (test code = MDIFF) DIFFERENTIAL [id number] 09:48:00 Test Item Value Reference Range Interpretation Comments STAIN ACCEPTABILITY (test code = STN ACCEPTABLE) CABOT RINGS (test code = CAB) MORPHOLOGY COMMENT (test code = MOC) PLATELET ESTIMATE (test code = PLTEST) PLATELET MORPHOLOGY (test code = PLTMORPH) CBC W/AUTO [id number] 09:48:00 Test Item Value Reference Range Interpretation Comments WHITE BLOOD CELL (test 4.7 K/mm3 4.5-12.5 N code = WBC) RED BLOOD CELL (test code 3.75 mill/mm3 4.0-5.8 L = RBC) HEMOGLOBIN (test code = 8.1 gram/dL 13.0-17.5 L HGB) HEMATOCRIT (test code = 31.1 % 42.0-52.0 L HCT) MEAN CELL VOLUME (test 82.9 fL 80-98 N code = MCV) MEAN CELL HGB (test code 21.6 picogram 27.0-33.0 L = MCH) MEAN CELL HGB 26.0 gram/dL 33.0-36.0 L CONCETRATION (test code = MCHC) RED CELL DISTRIBUTION 19.8 % 11.6-16.2 H WIDTH (test code = RDW) RED CELL DISTRIBUTION 59.3 fL 37.0-51.0 H WIDTH SD (test code = RDW-SD) PLATELET COUNT (test code 220 K/mm3 150-450 N = PLT) MEAN PLATELET VOLUME 8.3 fL 6.7-11.0 N (test code = MPV) NEUTROPHIL % (test code = 62.4 % 39.0-69.0 N NT%) IMMATURE GRANULOCYTE % 0.4 % 0.0-5.0 N (test code = IG%) LYMPHOCYTE % (test code = 20.0 % 25.0-55.0 L LY%) MONOCYTE % (test code = 7.5 % 0.0-10.0 N MO%) EOSINOPHIL % (test code = 8.8 % 0.0-5.0 H EO%) BASOPHIL % (test code = 0.9 % 0.0-1.0 N BA%) NUCLEATED RBC % (test 0.0 % 0-0 N code = NRBC%) NEUTROPHIL # (test code = 2.90 K/mm3 1.8-7.7 N NT#) IMMATURE GRANULOCYTE # 0.02 x10 3/uL 0-0.03 N (test code = IG#) LYMPHOCYTE # (test code = 0.93 K/mm3 1.0-5.0 L LY#) MONOCYTE # (test code = 0.35 K/mm3 0-0.8 N MO#) EOSINOPHIL # (test code = 0.41 K/mm3 0.0-0.5 N EO#) BASOPHIL # (test code = 0.04 K/mm3 0.0-0.2 N BA#) NUCLEATED RBC # (test 0.00 K/mm3 0.0-0.1 N code = NRBC#) MANUAL DIFF REQUIRED NO, ONLY SCAN NEEDED (test code = MDIFF) DIFFERENTIAL [id number] 09:48:00 Test Item Value Reference Range Interpretation Comments STAIN ACCEPTABILITY (test code = STN ACCEPTABLE) CABOT RINGS (test code = CAB) MORPHOLOGY COMMENT (test code = MOC) PLATELET ESTIMATE (test code = PLTEST) PLATELET MORPHOLOGY (test code = PLTMORPH) CBC W/AUTO [id number] 09:48:00 Test Item Value Reference Range Interpretation Comments WHITE BLOOD CELL (test 4.7 K/mm3 4.5-12.5 N code = WBC) RED BLOOD CELL (test code 3.75 mill/mm3 4.0-5.8 L = RBC) HEMOGLOBIN (test code = 8.1 gram/dL 13.0-17.5 L HGB) HEMATOCRIT (test code = 31.1 % 42.0-52.0 L HCT) MEAN CELL VOLUME (test 82.9 fL 80-98 N code = MCV) MEAN CELL HGB (test code 21.6 picogram 27.0-33.0 L = MCH) MEAN CELL HGB 26.0 gram/dL 33.0-36.0 L CONCETRATION (test code = MCHC) RED CELL DISTRIBUTION 19.8 % 11.6-16.2 H WIDTH (test code = RDW) RED CELL DISTRIBUTION 59.3 fL 37.0-51.0 H WIDTH SD (test code = RDW-SD) PLATELET COUNT (test code 220 K/mm3 150-450 N = PLT) MEAN PLATELET VOLUME 8.3 fL 6.7-11.0 N (test code = MPV) NEUTROPHIL % (test code = 62.4 % 39.0-69.0 N NT%) IMMATURE GRANULOCYTE % 0.4 % 0.0-5.0 N (test code = IG%) LYMPHOCYTE % (test code = 20.0 % 25.0-55.0 L LY%) MONOCYTE % (test code = 7.5 % 0.0-10.0 N MO%) EOSINOPHIL % (test code = 8.8 % 0.0-5.0 H EO%) BASOPHIL % (test code = 0.9 % 0.0-1.0 N BA%) NUCLEATED RBC % (test 0.0 % 0-0 N code = NRBC%) NEUTROPHIL # (test code = 2.90 K/mm3 1.8-7.7 N NT#) IMMATURE GRANULOCYTE # 0.02 x10 3/uL 0-0.03 N (test code = IG#) LYMPHOCYTE # (test code = 0.93 K/mm3 1.0-5.0 L LY#) MONOCYTE # (test code = 0.35 K/mm3 0-0.8 N MO#) EOSINOPHIL # (test code = 0.41 K/mm3 0.0-0.5 N EO#) BASOPHIL # (test code = 0.04 K/mm3 0.0-0.2 N BA#) NUCLEATED RBC # (test 0.00 K/mm3 0.0-0.1 N code = NRBC#) MANUAL DIFF REQUIRED NO, ONLY SCAN NEEDED (test code = MDIFF) DIFFERENTIAL [id number] 09:48:00 Test Item Value Reference Range Interpretation Comments STAIN ACCEPTABILITY (test code = STN ACCEPTABLE) MORPHOLOGY COMMENT (test code = MOC) PLATELET ESTIMATE (test code = PLTEST) PLATELET MORPHOLOGY (test code = PLTMORPH) CBC W/AUTO [id number] 09:48:00 Test Item Value Reference Range Interpretation Comments WHITE BLOOD CELL (test 4.7 K/mm3 4.5-12.5 N code = WBC) RED BLOOD CELL (test code 3.75 mill/mm3 4.0-5.8 L = RBC) HEMOGLOBIN (test code = 8.1 gram/dL 13.0-17.5 L HGB) HEMATOCRIT (test code = 31.1 % 42.0-52.0 L HCT) MEAN CELL VOLUME (test 82.9 fL 80-98 N code = MCV) MEAN CELL HGB (test code 21.6 picogram 27.0-33.0 L = MCH) MEAN CELL HGB 26.0 gram/dL 33.0-36.0 L CONCETRATION (test code = MCHC) RED CELL DISTRIBUTION 19.8 % 11.6-16.2 H WIDTH (test code = RDW) RED CELL DISTRIBUTION 59.3 fL 37.0-51.0 H WIDTH SD (test code = RDW-SD) PLATELET COUNT (test code 220 K/mm3 150-450 N = PLT) MEAN PLATELET VOLUME 8.3 fL 6.7-11.0 N (test code = MPV) NEUTROPHIL % (test code = 62.4 % 39.0-69.0 N NT%) IMMATURE GRANULOCYTE % 0.4 % 0.0-5.0 N (test code = IG%) LYMPHOCYTE % (test code = 20.0 % 25.0-55.0 L LY%) MONOCYTE % (test code = 7.5 % 0.0-10.0 N MO%) EOSINOPHIL % (test code = 8.8 % 0.0-5.0 H EO%) BASOPHIL % (test code = 0.9 % 0.0-1.0 N BA%) NUCLEATED RBC % (test 0.0 % 0-0 N code = NRBC%) NEUTROPHIL # (test code = 2.90 K/mm3 1.8-7.7 N NT#) IMMATURE GRANULOCYTE # 0.02 x10 3/uL 0-0.03 N (test code = IG#) LYMPHOCYTE # (test code = 0.93 K/mm3 1.0-5.0 L LY#) MONOCYTE # (test code = 0.35 K/mm3 0-0.8 N MO#) EOSINOPHIL # (test code = 0.41 K/mm3 0.0-0.5 N EO#) BASOPHIL # (test code = 0.04 K/mm3 0.0-0.2 N BA#) NUCLEATED RBC # (test 0.00 K/mm3 0.0-0.1 N code = NRBC#) MANUAL DIFF REQUIRED NO, ONLY SCAN NEEDED (test code = MDIFF) DIFFERENTIAL [id number] 09:48:00 Test Item Value Reference Range Interpretation Comments STAIN ACCEPTABILITY (test code = STN ACCEPTABLE) CABOT RINGS (test code = CAB) MORPHOLOGY COMMENT (test code = MOC) PLATELET ESTIMATE (test code = PLTEST) PLATELET MORPHOLOGY (test code = PLTMORPH) ECG 12 [id number] 18:00:39 Test Item Value Reference Range Interpretation Comments Ventricular rate (test code = 253) Atrial rate (test code = 255) QRSD interval (test code = 260) QT interval (test code = 264) QTC interval (test code = 265) QRS axis 1 (test code = 268) T wave axis (test code = 270) EKG impression (test Atrial code = 273) fibrillation-Right bundle branch block-Abnormal ECG-In automated comparison with ECG of 04-AUG-2020 01:10,-No significant change was found- [facility] [id number] 18:51:09 Test Item Value Reference Range Interpretation Comments Urine culture (test SEE COMMENT Bacteriu yosef screen code = 2147021) negative. Mary Jo StarkCOVID-19 (ID NOW RAPID TESTING)2020-07-19 23:49:00 Test Item Value Reference Range Interpretation Comments SARS-CoV-2 Rapid ID NOW Not Detected Not Detected (test code = 42800-5) HAVEN (test code = HAVEN) ID NOW COVID-19 Assay is an isothermal nucleic acid amplification test intended for the qualitative detection of nucleic acid from SARS-CoV-2 viral RNA in nasopharyngeal ([employer]) specimens. It is used under Emergency Use Authorization (EUA) by FDA. The limit of detection (LOD) of the assay is 125 Genome Equivalents/mL. A positive result is indicative of the presence of SARS-CoV-2 RNA. ?Clinical correlation with patient history and other diagnostic information is necessary to determine patient infection status. A negative (Not Detected) result does not preclude SARS-CoV-2 infection. In patients with clinical symptoms and other tests that are consistent with SARS-CoV-2 infection, negative results should be treated as presumptive negative and a new specimen should be tested with alternative PCR molecular test. Invalid: Please collect a new specimen for repeat patient testing if clinically indicated. Lab Interpretation Normal (test code = 95182-1) General acute hospital WITHOUT [id number] 13:19:00 Test Item Value Reference Range Interpretation Comments WBC (test code = 6690-2) See_Comment [A utomated message] The system [employer] generated this result transmit josé antonio reference range : 4.20 - 10.70 10*3/?L. The reference range was not used to interpret this result as normal/abnormal . RBC (test code = 789-8) See_Comment L [Au tomated message] The system [employer] generated this result transmit josé antonio reference range : 4.26 - 5.52 10* 6/?L. The reference r fernando was not used to interpret this result as normal/abnormal . HGB (test code = 718-7) 8.0 g/dL 12.2-16.4 L HCT (test code = 4544-3) 27.9 % 38.4-49.3 L MCH (test code = 785-6) 21.9 pg 26.1-32.7 L MCV (test code = 787-2) 76.2 fL 81.7-95.6 L MCHC (test code = 786-4) 28.7 g/dL 31.2-35 L PLT (test code = 777-3) See_Comment [Au tomated message] The system [employer] generated this result transmit josé antonio reference range : 150 - 328 10*3/?L. The reference range was not used to interpret this result as normal/abnormal . MPV (test code = 10.1 fL 9.8-13 55755-6) RDW-CV (test code = 17.4 % 12.1-15.4 H 788-0) RDW-SD (test code = 47.5 fL 38.5-51.6 91621-1) NRBC x10^3 (test code = <0.01 See_Comment [Au tomated message] [id number]) The system [employer] generated this result transmit josé antonio reference range : 10*3/?L. The reference range was not used to interpret this result as normal/abnormal . NRBC/100 WBC (test code See_Comment [Au tomated message] = 3567028227) The system [employer] generated this result transmit josé antonio reference range : 0.0 - 10.0 /100 WBC s. The reference r fernando was not used to interpret this result as normal/abnormal . IPF % (test code = 7419816253) Lab Interpretation (test Abnormal code = 29032-2) [facility] METABOLIC PANEL (NA, K, CL, CO2, GLUCOSE, BUN, CREATININE, CA)2020-07-19 13:15:00 Test Item Value Reference Range Interpretation Comments NA (test code = 136 mmol/L 135-145 2841753502) K (test code = 4.1 mmol/L 3.5-5 9312160148) CL (test code = 107 mmol/L 98-108 3830087990) CO2 TOTAL (test code = 25 mmol/L 23-31 1206394340) AGAP (test code = 2-16 2704134363) BUN (test code = 17 mg/dL 7-23 3924833283) GLUCOSE (test code = 119 mg/dL 70-110 H 2943740296) CREATININE (test code = 0.78 mg/dL 0.6-1.25 3954464818) CALCIUM (test code = 7.8 mg/dL 8.6-10.6 L 9420252647) eGFR Calculation mL/min/1.73m2 (Non-) (test code = 4335531363) eGFR Calculation mL/min/1.73m2 () (test code = 5194215747) HAVEN (test code = HAVEN) Association of Glomerular Filtration Rate (GFR) and Staging of Kidney Disease* + --+ --+ ------+| GFR (mL/min/1.73 m2) ?| With Kidney Damage ?| ?Without Kidney Damage+ --------+ --------+ +| ?>90 ?| ?Stage one ?| ? Normal ?+ ---+ ---+ -------+| ?60-89 ?| ?Stage two ?| ? Decreased GFR ? + --+ --+ ------+| ?30-59 ?| ?Stage three ?| ? Stage three ? + --+ --+ ------+| ?15-29 ?| ?Stage four ? | ? Stage four ?+ ---+ ---+ -------+| ?<15 (or dialysis) ? ?| ?Stage five ? | ? Stage five ?+ ---+ ---+ -------+ *Each stage assumes the associated GFR level has been in effect for at least three months. ?Stages 1 to 5, with or without kidney disease, indicate chronic kidney disease. Notes: Determination of stages one and two (with eGFR >59mL/min/1.73 m2) requires estimation of kidney damage for at least three months as defined by structural or functional abnormalities of the kidney, manifested by either:Pathological abnormalities or Markers of kidney damage (including abnormalities in the composition of the blood or urine or abnormalities in imaging tests). Lab Interpretation Abnormal (test code = 66744-8) [id number] Test Item Value Reference Range Interpretation Comments MAGNESIUM (test code = 7598243531) 1.9 mg/dL 1.7-2.4 Lab Interpretation (test code = Normal 93602-2) [facility] [id number] 19:44:00 Test Item Value Reference Range Interpretation Comments Feces Culture (test No Salmonella, No code = 625-4) Shigella, No Campylobacter, and No E. coli 0157 isolated. HAVEN (test code = HAVEN) Feces specimens are routinely cultured for Salmonella, Shigella, Campylobacter, and E. coli 0157. [facility] [id number] 16:17:00 Test Item Value Reference Range Interpretation Comments TSH (test code = See_Comment Biotin has been [id number]) reported to cau se a negative bias, interpret resul ts relative to pat ient's use of biotin. [Automated mess age] The system [employer] generated this result transmitted ref erence range: 0.45 - 4 .70 mIU/L. The refe rence range was not u sed to interpret this result as normal/abnor mal. Lab Interpretation (test Normal code = 78650-6) [facility] (NA, K, CL, CO2, GLUCOSE, BUN, CREATININE, [place])2020-07-18 12:17:00 Test Item Value Reference Range Interpretation Comments NA (test code = 140 mmol/L 135-145 8342346285) K (test code = 3.9 mmol/L 3.5-5 2099782521) CL (test code = 108 mmol/L 98-108 8992919453) CO2 TOTAL (test code = 24 mmol/L 23-31 4433998900) AGAP (test code = 2-16 8843428131) BUN (test code = 14 mg/dL 7-23 8225687506) GLUCOSE (test code = 122 mg/dL 70-110 H 9779338483) CREATININE (test code = 0.76 mg/dL 0.6-1.25 2707981643) CALCIUM (test code = 8.2 mg/dL 8.6-10.6 L 2383986845) eGFR Calculation mL/min/1.73m2 (Non-) (test code = 9950705315) eGFR Calculation mL/min/1.73m2 () (test code = 2841929560) HAVEN (test code = HAVEN) Association of Glomerular Filtration Rate (GFR) and Staging of Kidney Disease* + --+ --+ ------+| GFR (mL/min/1.73 m2) ?| With Kidney Damage ?| ?Without Kidney Damage+ --------+ --------+ +| ?>90 ?| ?Stage one ?| ? Normal ?+ ---+ ---+ -------+| ?60-89 ?| ?Stage two ?| ? Decreased GFR ? + --+ --+ ------+| ?30-59 ?| ?Stage three ?| ? Stage three ? + --+ --+ ------+| ?15-29 ?| ?Stage four ? | ? Stage four ?+ ---+ ---+ -------+| ?<15 (or dialysis) ? ?| ?Stage five ? | ? Stage five ?+ ---+ ---+ -------+ *Each stage assumes the associated GFR level has been in effect for at least three months. ?Stages 1 to 5, with or without kidney disease, indicate chronic kidney disease. Notes: Determination of stages one and two (with eGFR >59mL/min/1.73 m2) requires estimation of kidney damage for at least three months as defined by structural or functional abnormalities of the kidney, manifested by either:Pathological abnormalities or Markers of kidney damage (including abnormalities in the composition of the blood or urine or abnormalities in imaging tests). Lab Interpretation Abnormal (test code = 11781-2) [facility] 12[facility]17:00 Test Item Value Reference Range Interpretation Comments MAGNESIUM (test code = 8302215072) 2.0 mg/dL 1.7-2.4 Lab Interpretation (test code = Normal 10617-3) [facility] Temple[facility] WITHOUT [id number] 11:40:00 Test Item Value Reference Range Interpretation Comments WBC (test code = 6690-2) See_Comment [A utomated message] The system [employer] generated this result transmit josé antonio reference range : 4.20 - 10.70 10*3/?L. The reference range was not used to interpret this result as normal/abnormal . RBC (test code = 789-8) See_Comment L [Au tomated message] The system [employer] generated this result transmit josé antonio reference range : 4.26 - 5.52 10* 6/?L. The reference r fernando was not used to interpret this result as normal/abnormal . HGB (test code = 718-7) 8.7 g/dL 12.2-16.4 L HCT (test code = 4544-3) 30.0 % 38.4-49.3 L MCH (test code = 785-6) 22.0 pg 26.1-32.7 L MCV (test code = 787-2) 75.9 fL 81.7-95.6 L MCHC (test code = 786-4) 29.0 g/dL 31.2-35 L PLT (test code = 777-3) See_Comment [Au tomated message] The system [employer] generated this result transmit josé antonio reference range : 150 - 328 10*3/?L. The reference range was not used to interpret this result as normal/abnormal . MPV (test code = 10.3 fL 9.8-13 74931-4) RDW-CV (test code = 17.1 % 12.1-15.4 H 788-0) RDW-SD (test code = 45.7 fL 38.5-51.6 89584-1) NRBC x10^3 (test code = <0.01 See_Comment [Au tomated message] 0847319426) The system [employer] generated this result transmit josé antonio reference range : 10*3/?L. The reference range was not used to interpret this result as normal/abnormal . NRBC/100 WBC (test code See_Comment [Au tomated message] = 8958595633) The system [employer] generated this result transmit josé antonio reference range : 0.0 - 10.0 /100 WBC s. The reference r fernando was not used to interpret this result as normal/abnormal . IPF % (test code = 8166505685) Lab Interpretation (test Abnormal code = 11019-9) [facility] TempleCALPROTECTIN, [id number] 01:07:00 Test Item Value Reference Range Interpretation Comments CALPROFECAL (test code = 435 ug/g See_Comment H REF ERENCE INTERVAL: 06629-4) Calprotectin, F ecal by Immunoassay ?Less than 50 ug/g.........No rmal ?50-120 ug/g........... ....[facility] ed, test should be ?re-evaluated i n 4-6 weeks. ?121 ug/ g or greater.......E levate dPerformed by [facility],[address] [place], [place] [address] twz .mymxlog, Michael Garcia MD, [place] b. Director [Autom ated message] The sy stem which generated this result transmit josé antonio reference range : <=49. The refer ence range was not u sed to interpret this result as normal/abnor mal. Lab Interpretation (test Abnormal code = 36971-3) [facility] GLU[facility]SE [facility]AUTOMATED)2020-07-17 23:43:00 Test Item Value Reference Range Interpretation Comments POCT GLU (test code = 6586006626) 123 mg/dL 70-110 H Lab Interpretation (test code = Abnormal 23135-4) [facility] WITHOUT [id number] 19:50:00 Test Item Value Reference Range Interpretation Comments WBC (test code = 6690-2) See_Comment [A utomated message] The system [employer] generated this result transmit josé antonio reference range : 4.20 - 10.70 10*3/?L. The reference range was not used to interpret this result as normal/abnormal . RBC (test code = 789-8) See_Comment L [Au tomated message] The system [employer] generated this result transmit josé antonio reference range : 4.26 - 5.52 10* 6/?L. The reference r fernando was not used to interpret this result as normal/abnormal . HGB (test code = 718-7) 7.9 g/dL 12.2-16.4 L HCT (test code = 4544-3) 26.5 % 38.4-49.3 L MCH (test code = 785-6) 22.4 pg 26.1-32.7 L MCV (test code = 787-2) 75.1 fL 81.7-95.6 L MCHC (test code = 786-4) 29.8 g/dL 31.2-35 L PLT (test code = 777-3) See_Comment [Au tomated message] The system [employer] generated this result transmit josé antonio reference range : 150 - 328 10*3/?L. The reference range was not used to interpret this result as normal/abnormal . MPV (test code = 9.7 fL 9.8-13 L 69324-8) RDW-CV (test code = 16.9 % 12.1-15.4 H 788-0) RDW-SD (test code = 46.1 fL 38.5-51.6 23227-5) NRBC x10^3 (test code = <0.01 See_Comment [Au tomated message] 6941868532) The system [employer] generated this result transmit josé antonio reference range : 10*3/?L. The reference range was not used to interpret this result as normal/abnormal . NRBC/100 WBC (test code See_Comment [Au tomated message] = 6112793664) The system [employer] generated this result transmit josé antonio reference range : 0.0 - 10.0 /100 WBC s. The reference r fernando was not used to interpret this result as normal/abnormal . IPF % (test code = 4165084414) Lab Interpretation (test Abnormal code = 02188-4) [facility] TempleURINALYSIS2021-01-25 19:08:00 Test Item Value Reference Range Interpretation Comments APPEARANCE (test code = Clear Clear 2947203919) COLOR (test code = Yellow Yellow 5277690059) PH (test code = 4.8-8.0 9039603235) SP GRAVITY (test code = 1.003-1.030 8526753945) GLU U QUAL (test code = Normal Normal 3852266563) BLOOD (test code = 1+ Negative A 5031953069) KETONES (test code = Negative Negative 8896757316) PROTEIN (test code = 100 mg/dL Negative A 2887-8) UROBILIN (test code = 2.0 mg/dL Normal A 0552996168) BILIRUBIN (test code = Negative Negative 5102307184) NITRITE (test code = Negative Negative 8149675546) LEUK JOHAN (test code = Negative Negative 7364473071) RBC/HPF (test code = See_Comment H [Autom ated message] 0946998102) The system [employer] generated this result transmit josé antonio reference range : 0 - 3 HPF. The refe rence range was not u sed to interpret th is result as normal/abnormal . WBC/HPF (test code = See_Comment [Autom ated message] 4054616084) The system [employer] generated this result transmit josé antonio reference range : 0 - 5 HPF. The refe rence range was not u sed to interpret th is result as normal/abnormal . BACTERIA (test code = Negative Negative 6220600207) MUCOUS (test code = Slight Negative LPF A 3886421259) SQ EPITH (test code = <1 See_Comment [Auto mated message] 0444612851) The system [employer] generated this result transmit josé antonio reference range : <=2 HPF. The refere nce range was not u sed to interpret th is result as normal/abnormal . HYAL CAST (test code = See_Comment H [Aut omated message] 0268336579) The system [employer] generated this result transmit josé antonio reference range : <=2 LPF. The refere nce range was not u sed to interpret th is result as normal/abnormal . ASCORBIC ACID (test code Negative = 6421523642) Lab Interpretation (test Abnormal code = 66967-2) [facility] DRUG (LCMSMS) - OPIATES [id number] 18:28:00 Test Item Value Reference Range Interpretation Comments Morphine-Interpretatio Negative Negative n (test code = 9746204651) Codeine-Interpretation Negative Negative (test code = 6098879295) Hydrocodon-LCMS (test 1009 ng/mL <50 H code = 9616573336) Hydrocodon-Creatinine 1668 ng/mg Normalized (test code = 5757588958) Hydrocodon-Interpretat Positive Negative A ion (test code = 3237664798) Hydromorph-LCMS (test 289 ng/mL <50 H code = 1524682819) Hydromorp-Creatinine 478 ng/mg Normalized (test code = 6480540942) Hydromorph-Interpretat Positive Negative A ion (test code = 3350341951) Norhydrocod-LCMS 178 ng/mL <50 H (test code = 1736127327) Norhydrocod-Creatinine 294 ng/mg Normalized (test code = 0340800833) Norhydrocod-Interpreta Positive Negative A tion (test code = 7516024863) Oxycodone-Interpretati Negative Negative on (test code = 3021017490) Oxymorph-Interpretatio Negative Negative n (test code = 5097655858) Noroxycod-Interpretati Negative Negative on (test code = 8014950332) 6-KATIE(Heroin)-Interpre Negative Negative tation (test code = 2303881234) CREAT U (test code = 60.5 mg/dL 0392625606) HAVEN (test code = HAVEN) Test developed and characteristics determined by [facility] Laboratory Services. Lab Interpretation Abnormal (test code = 91764-1) [facility] (LCMSMS) - SYNTHETIC OPIATES PANEL 2020-07-17 18:26:00 Test Item Value Reference Range Interpretation Comments Tramadol-LCMS (test 6618 ng/mL <50 H code = 1423780075) Tramadol-Creatinine 82515 ng/mg Normalized (test code = 9539780817) Tramadol-Interpretatio Positive Negative A n (test code = 3882868006) Propoxyph-Interpretati Negative Negative on (test code = 0438365477) Normeperid-Interpretat Negative Negative ion (test code = 6951337325) Meperidine-Interpretat Negative Negative ion (test code = 3364281141) Methadone-Interpretati Negative Negative on (test code = 9776885470) EDDP-Interpretation Negative Negative (test code = 0061898467) CREAT U (test code = 60.5 mg/dL 1270255480) Norfentan-Interpretati Negative Negative on (test code = 6463577169) Fentanyl-Interpretatio Negative Negative n (test code = 9610481961) Buprenorph-Interpretat Negative Negative ion (test code = 7860148058) Norbupren-Interpretati Negative Negative on (test code = 1551977839) Carisopro-Interpretati Negative Negative on (test code = 6382280297) Meprobamat-Interpretat Negative Negative ion (test code = 0394790788) HAVEN (test code = HAVEN) Test developed and characteristics determined by [facility] Laboratory Services. Lab Interpretation Abnormal (test code = 60539-7) [facility] TempleBLOOD CULTURE [id number] 15:23:00 Test Item Value Reference Range Interpretation Comments Blood Culture-Aerobic Culture positive. No growth AA P revious (test code = 26676-2) See Blood prelim inary Culture Workup verified resu lt for additional was Culture I n information. Progress on 07/12/2020 at 22 01 CSTPrevious preliminary verified result was No growth a t 24 hours on 07/13/2020 at 19 01 [employer] Blood No organisms No growth Previous Culture-Anaerobic isolated preliminar y (test code = 60995-7) verifi ed result was Culture In Progress on 07/12/2020 at 22 01 CSTPrevious preliminary verified result was No growth a t 24 hours on 07/14/2020 at 04 44 [employer] Lab Interpretation Abnormal (test code = 30342-9) [facility] Temple[facility] CULT[facility] [id number] 15:19:00 Test Item Value Reference Range Interpretation Comments Blood Culture-Aerobic Culture positive. No growth AA P revious (test code = 36972-9) See Blood prelim inary Culture Workup verified resu lt for additional was Culture I n information. Progress on 07/12/2020 at 21 02 [employer] Blood No organisms No growth Previous Culture-Anaerobic isolated preliminar y (test code = 73110-9) verifi ed result was Culture In Progress on 07/14/2020 at 04 43 [employer] Lab Interpretation Abnormal (test code = 92304-5) [facility] ONLY COVID [id number] 14:23:00COVID DMT InterpretationInterpretation/Recommendations: Molecular NAAT Tests for Active Infection with the SARS-CoV-2 Virus: This result indicates for a second time that the patient has been infected with the SARS-CoV-2 virus that causes COVID-19 illness. The patient should be considered infectious and able to transmit the virus within the first 10 days after symptom onset in fvoo-hy-dnsozqsg illnessand within the first 20 days after symptom onset in critical illness and/or severe immunocompromise.Asymptomatic patients are considered infectious for the first 10 days subsequent to the initial positive test result. From the onset of symptoms, if any, this result is likely to remain positive for 2 to 4 weeks. Tests for IgM and/or IgG Antibodies to SARS-CoV-2 Virus: Testing for IgM and IgG antibodies 1-3 weeks after illness onset will indicate whether the patient has produced antibodies to the virus. At this time, it is not known if the production of antibodies - specifically IgG antibodies - indicates whether the patient is immune to future infections with the SARS-CoV-2 virus. Interpretation Result Comments:These interpretation comments are based upon all COVID-19 testing the patient has had at [facility], including molecular NAAT testing (more commonly known as PCR testing and Rapid ID Now testing) and antibody testing. It does not take into account any testing that a patient has had outside of the [facility] medical record.[facility] LABORATORY SERVICESCOVID AhecrgpLAOJ-AfI-9 Rapid ID NOW (no units) ? ? Date ?Value ? 07/12/2020 ? Positive (A) ? ? ? 06/21/2020 ? Positive (A) ? [facility] SERVICESUn[facility]PO[facility])2020-07-17 13:56:00 Test Item Value Reference Range Interpretation Comments POCT GLU (test code = 0994285625) 154 mg/dL 70-110 H Lab Interpretation (test code = Abnormal 69511-4) [facility] (NA, K, CL, CO2, GLUCOSE, BUN, CREATININE, [place])2020-07-17 11:10:00 Test Item Value Reference Range Interpretation Comments NA (test code = 138 mmol/L 135-145 0247230188) K (test code = 3.9 mmol/L 3.5-5 8246083033) CL (test code = 108 mmol/L 98-108 3317408240) CO2 TOTAL (test code = 25 mmol/L 23-31 5383390563) AGAP (test code = 2-16 5879274400) BUN (test code = 15 mg/dL 7-23 1294874566) GLUCOSE (test code = 119 mg/dL 70-110 H 4196781842) CREATININE (test code = 0.76 mg/dL 0.6-1.25 0713053053) CALCIUM (test code = 7.7 mg/dL 8.6-10.6 L 2698102651) eGFR Calculation mL/min/1.73m2 (Non-) (test code = 6502161910) eGFR Calculation mL/min/1.73m2 () (test code = 2181959127) HAVEN (test code = HAVEN) Association of Glomerular Filtration Rate (GFR) and Staging of Kidney Disease* + --+ --+ ------+| GFR (mL/min/1.73 m2) ?| With Kidney Damage ?| ?Without Kidney Damage+ --------+ --------+ +| ?>90 ?| ?Stage one ?| ? Normal ?+ ---+ ---+ -------+| ?60-89 ?| ?Stage two ?| ? Decreased GFR ? + --+ --+ ------+| ?30-59 ?| ?Stage three ?| ? Stage three ? + --+ --+ ------+| ?15-29 ?| ?Stage four ? | ? Stage four ?+ ---+ ---+ -------+| ?<15 (or dialysis) ? ?| ?Stage five ? | ? Stage five ?+ ---+ ---+ -------+ *Each stage assumes the associated GFR level has been in effect for at least three months. ?Stages 1 to 5, with or without kidney disease, indicate chronic kidney disease. Notes: Determination of stages one and two (with eGFR >59mL/min/1.73 m2) requires estimation of kidney damage for at least three months as defined by structural or functional abnormalities of the kidney, manifested by either:Pathological abnormalities or Markers of kidney damage (including abnormalities in the composition of the blood or urine or abnormalities in imaging tests). Lab Interpretation Abnormal (test code = 15724-5) [facility] WITHOUT [id number] 10:45:00 Test Item Value Reference Range Interpretation Comments WBC (test code = 6690-2) See_Comment [A utomated message] The system [employer] generated this result transmit josé antonio reference range : 4.20 - 10.70 10*3/?L. The reference range was not used to interpret this result as normal/abnormal . RBC (test code = 789-8) See_Comment L [Au tomated message] The system [employer] generated this result transmit josé antonio reference range : 4.26 - 5.52 10* 6/?L. The reference r fernando was not used to interpret this result as normal/abnormal . HGB (test code = 718-7) 7.8 g/dL 12.2-16.4 L HCT (test code = 4544-3) 26.9 % 38.4-49.3 L MCH (test code = 785-6) 22.1 pg 26.1-32.7 L MCV (test code = 787-2) 76.2 fL 81.7-95.6 L MCHC (test code = 786-4) 29.0 g/dL 31.2-35 L PLT (test code = 777-3) See_Comment [Au tomated message] The system [employer] generated this result transmit josé antonio reference range : 150 - 328 10*3/?L. The reference range was not used to interpret this result as normal/abnormal . MPV (test code = 10.5 fL 9.8-13 35139-2) RDW-CV (test code = 17.1 % 12.1-15.4 H 788-0) RDW-SD (test code = 47.3 fL 38.5-51.6 80175-4) NRBC x10^3 (test code = <0.01 See_Comment [Au tomated message] 4839457156) The system [employer] generated this result transmit josé antonio reference range : 10*3/?L. The reference range was not used to interpret this result as normal/abnormal . NRBC/100 WBC (test code See_Comment [Au tomated message] = 7157850781) The system [employer] generated this result transmit josé antonio reference range : 0.0 - 10.0 /100 WBC s. The reference r fernando was not used to interpret this result as normal/abnormal . IPF % (test code = 5136671130) Lab Interpretation (test Abnormal code = 22699-3) [facility] TempleLact Acid Whole [id number] 10:24:00 Test Item Value Reference Range Interpretation Comments LACTIC ACID (test code = 0.95 mmol/L 5530705339) [facility] METABOLIC PANEL (NA, K, CL, CO2, GLUCOSE, BUN, CREATININE, CA)2020-07-16 11:37:00 Test Item Value Reference Range Interpretation Comments NA (test code = 140 mmol/L 135-145 3110554307) K (test code = 4.1 mmol/L 3.5-5 0680259503) CL (test code = 109 mmol/L 98-108 H 1285267064) CO2 TOTAL (test code = 23 mmol/L 23-31 3366166801) AGAP (test code = 2-16 8241415294) BUN (test code = 25 mg/dL 7-23 H 6767063466) GLUCOSE (test code = 113 mg/dL 70-110 H 5862363435) CREATININE (test code = 0.95 mg/dL 0.6-1.25 1542973649) CALCIUM (test code = 7.8 mg/dL 8.6-10.6 L 8969470501) eGFR Calculation mL/min/1.73m2 (Non-) (test code = 3504964090) eGFR Calculation mL/min/1.73m2 () (test code = 6424479927) HAVEN (test code = HAVEN) Association of Glomerular Filtration Rate (GFR) and Staging of Kidney Disease* + --+ --+ ------+| GFR (mL/min/1.73 m2) ?| With Kidney Damage ?| ?Without Kidney Damage+ --------+ --------+ +| ?>90 ?| ?Stage one ?| ? Normal ?+ ---+ ---+ -------+| ?60-89 ?| ?Stage two ?| ? Decreased GFR ? + --+ --+ ------+| ?30-59 ?| ?Stage three ?| ? Stage three ? + --+ --+ ------+| ?15-29 ?| ?Stage four ? | ? Stage four ?+ ---+ ---+ -------+| ?<15 (or dialysis) ? ?| ?Stage five ? | ? Stage five ?+ ---+ ---+ -------+ *Each stage assumes the associated GFR level has been in effect for at least three months. ?Stages 1 to 5, with or without kidney disease, indicate chronic kidney disease. Notes: Determination of stages one and two (with eGFR >59mL/min/1.73 m2) requires estimation of kidney damage for at least three months as defined by structural or functional abnormalities of the kidney, manifested by either:Pathological abnormalities or Markers of kidney damage (including abnormalities in the composition of the blood or urine or abnormalities in imaging tests). Lab Interpretation Abnormal (test code = 98332-5) [facility] [id number] 19:54:00 Test Item Value Reference Interpretation Comments Range D-DIMER (test code = See_Comment H [Autom ated 5073145705) message] The system which generated this result transmitted reference range : <0.50 ?g/mL (FEU). The reference range was not used to interpret this result as normal/abnormal . HAVEN (test code = This test may be HAVEN) used in conjunction with a clinical pretest probability (PTP) assessment model to exclude venous thromboembolism (VTE) in patients suspected of deep venous thrombosis (DVT) and pulmonary embolism (PE) A D-Dimer value less than 0.50 ?g/ml (FEU) has a negative predicative value of 96 to 100% (95% CI)and 97 to 100% (95% CI) as an aid in the diagnosis of deep vein thrombosis (DVT) and pulmonary embolism when there is low or moderate pretest probability of PE or DVT. D-Dimer values are expressed in initial fibrinogen equivalent units (FEU)" The assay results should be used with other information, including the clinical context, in forming a diagnosis. Lab Interpretation Abnormal (test code = 94074-7) [facility] TempleFECAL [id number] 17:25:00 Test Item Value Reference Range Interpretation Comments Fecal Leukocytes (test code = Positive Negative A 3484271380) Lab Interpretation (test code = Abnormal 06072-4) [facility] TempleACTIVATED PARTIAL THRMPLAS [id number] 09:07:00 Test Item Value Reference Range Interpretation Comments APTT Patient (test code = See_Comment [ Automated message] 3173-2) The system [employer] generated this result transmitted ref erence range: 26 - 36 Seconds. The re ference range was not u sed to interpret this result as normal/abnor mal. Lab Interpretation (test Normal code = 53028-7) [facility] TempleACTIVATED PARTIAL THRMPLAS [id number] 01:26:00 Test Item Value Reference Range Interpretation Comments APTT Patient (test code See_Comment H [Au tomated message] = 3173-2) The system [employer] generated this result transmitted ref erence range: 26 - 36 Seconds. The reference range was not used to int erpret this result as normal/abnormal . Lab Interpretation (test Abnormal code = 72065-5) [facility] TempleMICROALBUMIN [id number] 20:21:00 Test Item Value Reference Interpretation Comments Range CREAT U (test code 60.5 mg/dL = 0638338205) MICROALB U (test 260 ug/mL 0-45 H code = 34232-8) MICROAL/CR (test See_Comment H [Automated code = 9318-7) message] The system which generated this result transmitted reference range: 0 - 30 mg/g of creatinine. The reference range was not used to interpret this result as normal/abnormal . HAVEN (test code = Normal: <30 mg/g HAVEN) creatinineMicroalbuminu yosef: 30 - 299 mg/g creatinineClinical albuminuria: > 300 mg/g creatinine Lab Interpretation Abnormal (test code = 14017-2) [facility] THRMPLAS [id number] 18:22:00 Test Item Value Reference Range Interpretation Comments APTT Patient (test code See_Comment H [Au tomated message] = 3173-2) The system [employer] generated this result transmitted ref erence range: 26 - 36 Seconds. The reference range was not used to int erpret this result as normal/abnormal . Lab Interpretation (test Abnormal code = 66673-1) [facility] TempleGRAM NEGATIVE BLOOD PATHOGENS DNA [id number] 13:17:00 Test Item Value Reference Range Interpretation Comments Blood Pathogens by No organisms included in DNA Comment (test the Blood DNA Probe test code = 64539-8) panel were detected. Further identification workup to be performed by culture testing methods. HAVEN (test code = See blood culture result HAVEN) for additional information. ?Testing included eight identification and six resistance marker targets. [facility] THRM[facility] [id number] 12:58:00 Test Item Value Reference Range Interpretation Comments APTT Patient (test code See_Comment H [Au tomated message] = 3173-2) The system CloudSlides generated this result transmitted ref erence range: 26 - 36 Seconds. The reference range was not used to int erpret this result as normal/abnormal . Lab Interpretation (test Abnormal code = 36601-4) [facility] Metabolic Panel (NA, K, CL, CO2, GLUCOSE, BUN, CREATININE, CA)2020-07-14 12:47:00 Test Item Value Reference Range Interpretation Comments NA (test code = 139 mmol/L 135-145 6822914624) K (test code = 3.8 mmol/L 3.5-5 Slight 1959361382) hemolysis CL (test code = 110 mmol/L 98-108 H 7250935472) CO2 TOTAL (test code 20 mmol/L 23-31 L = 6061203193) AGAP (test code = 2-16 8062040877) BUN (test code = 41 mg/dL 7-23 H Slight 7567251060) hemolysis GLUCOSE (test code = 110 mg/dL 70-110 5027453248) CREATININE (test code 1.63 mg/dL 0.6-1.25 H = 2094122542) CALCIUM (test code = 7.8 mg/dL 8.6-10.6 L 3631527007) eGFR Calculation mL/min/1.73m2 (Non-) (test code = 1580513095) eGFR Calculation mL/min/1.73m2 () (test code = 2232968880) HAVEN (test code = HAVEN) Association of Glomerular Filtration Rate (GFR) and Staging of Kidney Disease* + -----+ --------+ +| GFR (mL/min/1.73 m2) ?| With Kidney Damage ?| ?Without Kidney Damage+ +------- +---- --+| ?>90 ?| ?Stage one ?| ? Normal ?+ ------+ ---------+--------- +| ?60-89 ?| ?Stage two ?| ? Decreased GFR ? + -----+ --------+ +| ?30-59 ?| ?Stage three ?| ? Stage three ? + -----+ --------+ +| ?15-29 ?| ?Stage four ? | ? Stage four ?+ ------+ ---------+--------- +| ?<15 (or dialysis) ? ?| ?Stage five ? | ? Stage five ?+ ------+ ---------+--------- + *Each stage assumes the associated GFR level has been in effect for at least three months. ?Stages 1 to 5, with or without kidney disease, indicate chronic kidney disease. Notes: Determination of stages one and two (with eGFR >59mL/min/1.73 m2) requires estimation of kidney damage for at least three months as defined by structural or functional abnormalities of the kidney, manifested by either:Pathological abnormalities or Markers of kidney damage (including abnormalities in the composition of the blood or urine or abnormalities in imaging tests). Lab Interpretation Abnormal (test code = 80204-2) [facility] Temple[facility] [id number] 12:47:00 Test Item Value Reference Range Interpretation Comments MAGNESIUM (test code = 2809772883) 2.1 mg/dL 1.7-2.4 Lab Interpretation (test code = Normal 48588-8) [facility] TempleGALV/CLC ONLY - URINE DRUG (IMMUNOASSAY) - 4 ER [id number] 06:31:00 Test Item Value Reference Range Interpretation Comments AMPHET (test code = Negative Negative 6044612951) Cocaine Metabolite (test Negative Negative code = 3285244876) OPIATES (test code = Presumptive Positive Negative A 4355837892) THC (test code = Negative Negative 2783681204) HAVEN (test code = HAVEN) Urine Drug Cutoff Ranges Amphetamine: ? 1,000 ng/mLCocaine: ? 150 ng/mLOpiates: ? 300 ng/mLCannabinoids: ?50 ng/mL The results are to be used only for medical (i.e., treatment) purposes. Unconfirmed screening results must not be used for non-medical purposes (e.g., employment testing, legal testing). Lab Interpretation (test Abnormal code = 69622-5) [facility] TempleACTIV[facility] PARTIAL THRMPLAS [id number] 05:33:00 Test Item Value Reference Range Interpretation Comments APTT Patient (test code = See_Comment [ Automated message] 3173-2) The system CloudSlides generated this result transmitted ref erence range: 26 - 36 Seconds. The re ference range was not u sed to interpret this result as normal/abnor mal. Lab Interpretation (test Normal code = 14823-8) [facility] Temple[facility]IC METABOLIC PANEL (NA, K, CL, CO2, GLUCOSE, BUN, CREATININE, CA)2020-07-14 05:26:00 Test Item Value Reference Range Interpretation Comments NA (test code = 135 mmol/L 135-145 9329864586) K (test code = 3.8 mmol/L 3.5-5 1974071733) CL (test code = 107 mmol/L 98-108 0582897134) CO2 TOTAL (test code = 19 mmol/L 23-31 L 3422777174) AGAP (test code = 2-16 8036333546) BUN (test code = 35 mg/dL 7-23 H 4159272147) GLUCOSE (test code = 131 mg/dL 70-110 H 4922142337) CREATININE (test code = 1.47 mg/dL 0.6-1.25 H 2953352970) CALCIUM (test code = 8.0 mg/dL 8.6-10.6 L 6933751947) eGFR Calculation mL/min/1.73m2 (Non-) (test code = 0647170596) eGFR Calculation mL/min/1.73m2 () (test code = 3126051012) HAVEN (test code = HAVEN) Association of Glomerular Filtration Rate (GFR) and Staging of Kidney Disease* + --+ --+ ------+| GFR (mL/min/1.73 m2) ?| With Kidney Damage ?| ?Without Kidney Damage+ --------+ --------+ +| ?>90 ?| ?Stage one ?| ? Normal ?+ ---+ ---+ -------+| ?60-89 ?| ?Stage two ?| ? Decreased GFR ? + --+ --+ ------+| ?30-59 ?| ?Stage three ?| ? Stage three ? + --+ --+ ------+| ?15-29 ?| ?Stage four ? | ? Stage four ?+ ---+ ---+ -------+| ?<15 (or dialysis) ? ?| ?Stage five ? | ? Stage five ?+ ---+ ---+ -------+ *Each stage assumes the associated GFR level has been in effect for at least three months. ?Stages 1 to 5, with or without kidney disease, indicate chronic kidney disease. Notes: Determination of stages one and two (with eGFR >59mL/min/1.73 m2) requires estimation of kidney damage for at least three months as defined by structural or functional abnormalities of the kidney, manifested by either:Pathological abnormalities or Markers of kidney damage (including abnormalities in the composition of the blood or urine or abnormalities in imaging tests). Lab Interpretation Abnormal (test code = 53968-8) [facility] TempleMAGNESIUM2021-01-22 05:26:00 Test Item Value Reference Range Interpretation Comments MAGNESIUM (test code = 9240630680) 1.9 mg/dL 1.7-2.4 Lab Interpretation (test code = Normal 20183-5) [facility] TempleOSMOLALITY [id number] 02:03:00 Test Item Value Reference Range Interpretation Comments OSMO U (test code = See_Comment [Automa josé antonio message] 8408752570) The system CloudSlides generated this result transmitted ref erence range: 50-1,100 mOsm/kg. The re ference range was not u sed to interpret this result as normal/abnor mal. Lab Interpretation (test Normal code = 14553-0) [facility] TempleCREATININE, URINE [id number] 00:57:00 Test Item Value Reference Range Interpretation Comments CREAT U (test code = 3045397095) 63.1 mg/dL [facility] TempleSODIUM, URINE [id number] 00:57:00 Test Item Value Reference Range Interpretation Comments NA URINE (test code = 7103764830) 97 mmol/L [facility] TempleUREA NITROGEN, URINE [id number] 00:57:00 Test Item Value Reference Range Interpretation Comments UREA N UR (test code = 5236652905) 679 mg/dL [facility] TempleURINALYSIS2021-01-22 00:54:00 Test Item Value Reference Range Interpretation Comments APPEARANCE (test code = Hazy Clear A 4431561266) COLOR (test code = Yellow Yellow 5172177497) PH (test code = 4.8-8.0 1788655113) SP GRAVITY (test code = 1.003-1.030 6812927127) GLU U QUAL (test code = Normal Normal 1040013513) BLOOD (test code = 2+ Negative A 9741855076) KETONES (test code = Negative Negative 9650714315) PROTEIN (test code = 30 mg/dL Negative A 2887-8) UROBILIN (test code = Normal Normal 1513583836) BILIRUBIN (test code = Negative Negative 3903658940) NITRITE (test code = Negative Negative 1455889911) LEUK JOHAN (test code = Negative Negative 7268197782) RBC/HPF (test code = See_Comment H [Autom ated message] 3318669694) The system CloudSlides generated this result transmitted ref erence range: 0 - 3 HP F. The reference range was not used to int erpret this result as normal/abnormal . WBC/HPF (test code = See_Comment [Autom ated message] 3697807264) The system CloudSlides generated this result transmitted ref erence range: 0 - 5 HP F. The reference range was not used to int erpret this result as normal/abnormal . BACTERIA (test code = Negative Negative 7406226902) MUCOUS (test code = Slight Negative LPF A 5490170082) Lab Interpretation (test Abnormal code = 28975-5) [facility] TemplePOCT GLUCOSE (AUTOMATED)2020-07-13 22:42:00 Test Item Value Reference Range Interpretation Comments POCT GLU (test code = 4873187650) 169 mg/dL 70-110 H Lab Interpretation (test code = Abnormal 76077-9) [facility] TempleC-REACTIVE [id number] 19:14:00 Test Item Value Reference Range Interpretation Comments CRP (test code = 4879345108) 10.9 mg/dL <0.8 H Lab Interpretation (test code = Abnormal 97514-4) [facility] TempleTroponin [id number] 19:12:00 Test Item Value Reference Range Interpretation Comments TROPONIN I (test 0.153 ng/mL See_Comment H [Automated code = 2349945423) message] The system which generated this result transmitted reference range : <=0.034. The reference range was not used to interpret this result as normal/abnormal . HAVEN (test code = Equal or Less than HAVEN) 0.034 ng/ml---Normal ?Note: Cardiac troponin begins to rise 3-4 hours after the onset of ischemia. Repeat in 4-6 hours if the sample was drawn within 3-4 hours of the onset of the symptom and found normal. Between 0.035 and 0.120 ng/mL--- Borderline. Questionable myocardial injury or necrosis ? ?Note: Serial measurement may be necessary to confirm or exclude the diagnosis of myocardial injury or necrosis; Clinical correlation (symptoms, EKGs, imaging studies, and others) required; Repeat in 4-6 hours if clinically indicated. ? Equal or Higher than 0.121 ng/mL---Abnormal. Myocardial Injury or Necrosis Likely ? Biotin has been reported to cause a negative bias, interpret results relative to patient's use of biotin. ? Lab Interpretation Abnormal (test code = 65356-3) [facility] TempleACTIVATED PARTIAL THRMPLAS [id number] 18:46:00 Test Item Value Reference Range Interpretation Comments APTT Patient (test code = See_Comment [ Automated message] 3173-2) The system CloudSlides generated this result transmitted ref erence range: 26 - 36 Seconds. The re ference range was not u sed to interpret this result as normal/abnor mal. Lab Interpretation (test Normal code = 52776-7) [facility] TempleOSMOLALITY, SERUM OR [id number] 17:31:00 Test Item Value Reference Range Interpretation Comments OSMOLALITY (test code = See_Comment [Au tomated message] 6728919307) The system CloudSlides generated this result transmitted ref erence range: 278 - 30 5 mOsm/kg. The re ference range was not u sed to interpret this result as normal/abnor mal. Lab Interpretation (test Normal code = 63427-3) [facility] TemplePROCALCITONIN2021-01-21 15:12:00 Test Item Value Reference Range Interpretation Comments Procalcitonin (test 5.12 ng/mL <0.07 H code = 2015828761) HAVEN (test code = HAVEN) INTERPRETATION OF PROCALCITONIN RESULTS IN ADULTS >= 18 YEARS OF AGE Initiation and discontinuation of antibiotics on patients with suspected or confirmed Lower Respiratory Tract Infection in Adults >= 18 years of age. + +-------- --------+ + -----+|Procalcitonin |Interpretation ?|Antibiotic ? ? |Considerations ? |ng/mL ? | ?|recommendation | ? + +-------- --------+ + -----+| <0.1 ? | Bacterial ? ? ?| Strongly ? ? ?| ? | ?| infection very | discouraged ? | Overruling: ? | ?| unlikely ? ? ? | ? | ? Clinically unstable ? ? ? + +-------- --------+ + ? High risk for adverse ? ? | <0.25 ?| Bacterial ? ? ?| Discouraged ? | ? outcome ? | ?| infection ? ? ?| ? | ? SEE IMPORTANT NOTE ?| ?| unlikely ? ? ? | ? | ? + +-------- --------+ + -----+| >=0.25 ? ? ? | Bacterial ? ? ?| Encouraged ? ?| ? | ?| infection ? ? ?| ? | ? | ?| likely ? | ? | Consider treatment failure ?+ +------- ---------+ -+ if levels does not decrease | >0.5 ? | Bacterial ? ? ?| Strongly ? ? ?| appropriately ? | ?| infection very | encouraged ? ?| ? | ?| likely ? | ? | ? + +-------- --------+ + -----+ Discontinuation of antibiotics in high-acuity patients with suspected or confirmed sepsis in Adults >= 18 years of age. + +-------- --------+ + -----+|Procalcitonin |Interpretation ?|Antibiotic ? ? |Considerations ? |ng/mL ? | ?|recommendation | ? + +-------- --------+ + -----+| <0.25 ?| Bacterial ? ? ?| Strongly ? ? ?| ? | ?| infection very | discouraged ? | Overruling: ? | ?| unlikely ? ? ? | ? | ? Clinically unstable ? ? ? + +-------- --------+ + ? High risk for adverse ? ? | <0.5 or drop | Bacterial ? ? ?| Discouraged ? | ? outcome ? | >80% from ? ?| infection ? ? ?| ? | ? SEE IMPORTANT NOTE ?| highest PCT ?| unlikely ? ? ? | ? | ? | level ?| ?| ? | ? + +-------- --------+ + -----+| >=0.5 ?| Bacterial ? ? ?| Encouraged ? ?| ? | ?| infection ? ? ?| ? | ? | ?| likely ? | ? | Consider treatment failure ?+ +------- ---------+ -+ if levels does not decrease | >1.0 ? | Bacterial ? ? ?| Strongly ? ? ?| appropriately ? | ?| infection very | encouraged ? ?| ? | ?| likely ? | ? | ? + +-------- --------+ + -----+ Percentage of drop of Procalcitonin calculation for Discontinuation of antibiotics in high-acuity patients with suspected or confirmed sepsis in Adults >= 18 years of age. ? Procalcitonin highest{}-Procalcitonin current{}Delta Procalcitonin = x100% ? Procalcitonin current {} IMPORTANT NOTE: Procalcitonin may be elevated without bacterial infection by physiologic stress related to trauma, sen, chronic dialysis, metastatic cancer, surgery in the past seven days, malaria, some fungal infections, and some forms of vasculitis. The interpretation algorithm may not apply to patients with immunosuppression (equivalent of >10 mg of prednisone daily), HIV with CD4 cell count < 350 cells/mm3, active malignancy on systemic chemotherapy, solid organ transplant or hematopoietic stem cell transplantation, or hospital acquired pneumonia. Additionally, some clinical trials of procalcitonin have excluded patients with shock requiring vasopressor use, acute respiratory failure requiring mechanical ventilation, or those with known lung abscess/empyema. For further information please refer to:[email or web address] Lab Interpretation Abnormal (test code = 37214-9) [facility] TempleFERRITIN [id number] 14:16:00 Test Item Value Reference Range Interpretation Comments FERRITIN (test code = 42.4 ng/mL 18-464 3573878089) HAVEN (test code = HAVEN) Biotin has been reported to cause a negative bias, interpret results relative to patient's use of biotin. Lab Interpretation (test Normal code = 49159-9) [facility] TempleLipid Panel (Total Cholesterol, Triglycerides, HDL)2020-07-13 13:07:00 Test Item Value Reference Range Interpretation Comments CHOL (test code = 89 mg/dL 120-200 L 6323015800) HDL (test code = 26 mg/dL >40 L 4023481419) HDLC RATIO (test code = See_Comment [Au tomated message] 5407841205) The system CloudSlides generated this result transmit josé antonio reference range : <=5.0. The refe rence range was not u sed to interpret th is result as normal/abnormal . TRIG (test code = 123 mg/dL 30-170 7561158827) LDL CHOL (test code = 38 mg/dL See_Comment [Auto mated message] 07848-9) The system CloudSlides generated this result transmit josé antonio reference range : <=160. The refe rence range was not u sed to interpret th is result as normal/abnormal . VLDL (test code = 25 mg/dL 5-60 4703927156) Lab Interpretation (test Abnormal code = 70835-1) [facility] TempleHepatic Function Panel (ALB, T.PRO, BILI T, BU/BC, ALT, AST, ALK PHOS)2020-07-13 13:07:00 Test Item Value Reference Range Interpretation Comments TOTAL BILI (test code = 5938500564) 0.6 mg/dL 0.1-1.1 BILI UNCON (test code = 4926921828) 0.5 mg/dL 0.1-1.1 BILI CONJ (test code = 3033757238) 0.0 mg/dL 0-0.3 T PROTEIN (test code = 8722684693) 5.8 g/dL 6.3-8.2 L ALBUMIN (test code = 0879762230) 3.0 g/dL 3.5-5 L ALK PHOS (test code = 1961377247) 78 U/L 34-122 ALTv (test code = 1742-6) 19 U/L 5-50 AST(SGOT) (test code = 7743065621) 50 U/L 13-40 H Lab Interpretation (test code = Abnormal 77752-4) [facility] TempleTroponin [id number] 10:47:00 Test Item Value Reference Range Interpretation Comments TROPONIN I (test 0.318 ng/mL See_Comment H [Automated code = 4920294785) message] The system which generated this result transmitted reference range : <=0.034. The reference range was not used to interpret this result as normal/abnormal . HAVEN (test code = Equal or Less than HAVEN) 0.034 ng/ml---Normal ?Note: Cardiac troponin begins to rise 3-4 hours after the onset of ischemia. Repeat in 4-6 hours if the sample was drawn within 3-4 hours of the onset of the symptom and found normal. Between 0.035 and 0.120 ng/mL--- Borderline. Questionable myocardial injury or necrosis ? ?Note: Serial measurement may be necessary to confirm or exclude the diagnosis of myocardial injury or necrosis; Clinical correlation (symptoms, EKGs, imaging studies, and others) required; Repeat in 4-6 hours if clinically indicated. ? Equal or Higher than 0.121 ng/mL---Abnormal. Myocardial Injury or Necrosis Likely ? Biotin has been reported to cause a negative bias, interpret results relative to patient's use of biotin. ? Lab Interpretation Abnormal (test code = 45100-9) [facility] TempleACTIV[facility] PARTIAL THRMPLAS [id number] 09:52:00 Test Item Value Reference Range Interpretation Comments APTT Patient (test code See_Comment H [Au tomated message] = 3173-2) The system CloudSlides generated this result transmitted ref erence range: 26 - 36 Seconds. The reference range was not used to int erpret this result as normal/abnormal . Lab Interpretation (test Abnormal code = 16102-3) [facility] TempleD-[id number] 09:52:00 Test Item Value Reference Interpretation Comments Range D-DIMER (test code = See_Comment H [Autom ated 2664386751) message] The system which generated this result transmitted reference range : <0.50 ?g/mL (FEU). The reference range was not used to interpret this result as normal/abnormal . HVAEN (test code = This test may be HAVEN) used in conjunction with a clinical pretest probability (PTP) assessment model to exclude venous thromboembolism (VTE) in patients suspected of deep venous thrombosis (DVT) and pulmonary embolism (PE) A D-Dimer value less than 0.50 ?g/ml (FEU) has a negative predicative value of 96 to 100% (95% CI)and 97 to 100% (95% CI) as an aid in the diagnosis of deep vein thrombosis (DVT) and pulmonary embolism when there is low or moderate pretest probability of PE or DVT. D-Dimer values are expressed in initial fibrinogen equivalent units (FEU)" The assay results should be used with other information, including the clinical context, in forming a diagnosis. Lab Interpretation Abnormal (test code = 22624-3) [facility] TempleLACTATE [id number] 09:44:00 Test Item Value Reference Range Interpretation Comments LDH (test code = 6572734937) 622 U/L 300-600 H Lab Interpretation (test code = Abnormal 49218-3) [facility] TempleCritical [id number] 04:45:00Donald Wilson EMNP ? ? 07/13/2020 ?5:10 AMCritical CarePerformed by: Donald Wilson EMNPAuthorized by: Donald Wilson EMNP Critical care provider statement: ?Critical care time (minutes): ?40 ?Critical care time was exclusive of: ?Separately billable procedures and treating other patients and teaching time ?Critical care was necessary to treat or prevent imminent or life-threatening deterioration of the following conditions: ?Respiratory failure and cardiac failure ?Critical care was time spent personally by me on the following activities: ?Development of treatment plan with patient or surrogate, discussions with consultants, evaluation of patient's response to treatment, examination of patient, obtaining history from patient or surrogate, re- evaluation of patient's condition, pulse oximetry, ordering and performing treatments and interventions, ordering and review of laboratory studies and ordering and review of radiographic studies ?I assumed direction of critical care for this patient from another provider in my specialty: no ?[facility] TempleAC ABG + LACTIC [id number] 02:42:00 Test Item Value Reference Range Interpretation Comments PH (test code = 2) 7.35-7.45 PCO2 (test code = See_Comment [Automat ed 8686147742) message] The sy stem which generated this result transmitted reference range : 35 - 45 mmHg. The reference range was not used to interpret this result as normal/abnormal . PO2 (test code = See_Comment H [Automated 2102020906) message] The sy stem which generated this result transmitted reference range : 80 - 100 mmHg. The reference range was not used to interpret this result as normal/abnormal . HCO3 (test code = See_Comment L [Automate d 9956174698) message] The sy stem which generated this result transmitted reference range : 22 - 26 mEq/L. The reference range was not used to interpret this result as normal/abnormal . BE (test code = See_Comment L [Automated 0856002613) message] The sy stem which generated this result transmitted reference range : -3.0 - 3.0 mEq/ L. The reference r fernando was not used to interpret this result as normal/abnormal . LACTIC ACID (test code 1.25 mmol/L = 1330451843) Lab Interpretation Abnormal (test code = 39551-3) [facility] TempleXR CHEST 1 [id number] 01:10:12Impression: No acute abnormalities evident. RL: 460 End of Report Ordering Physician: BRIANA WILSON History: ?Short of breath Technique: Chest, single view Comparison: None Findings: ? Patchy parahilar airspace disease is present bilaterally, with no areas ofsignificant consolidation. The lungs are otherwise clear. No pleuraleffusionsare evident. Heart size is normal. The superior mediastinalsilhouette is unremarkable for age and projection. There are degenerativechanges of the shoulders and spine. No acute bony abnormalities areevident. [facility], Radiant Results Inft User - 07/12/2020 7:11 PM CSTOrdering Physician: DONALD BENAVIDESNAHistory: Short of breathTechnique: Chest, single viewComparison: NoneFindings: Patchy parahilar airspace disease is present bilaterally, with no areas ofsignificant consolidation. The lungs are otherwise clear. No pleuraleffusions are evident. Heart size is normal. The superior mediastinalsilhouette is unremarkable for age and projection. There are degenerativechanges of the shoulders and spine. No acute bony abnormalities areevident.IMPRESSIONImpression:No acute abnormalities evident.RL: 460End of R [facility] [id number] 00:22:00 Test Item Value Reference Range Interpretation Comments WBC (test code = See_Comment L [Automated 4290-2) message] The sy stem which generated this result transmitted reference range : 4.20 - 10.70 10*3/?L. The reference range was not used to interpret this result as normal/abnormal . RBC (test code = See_Comment L [Automated 789-8) message] The sy stem which generated this result transmitted reference range : 4.26 - 5.52 10*6/?L. The reference range was not used to interpret this result as normal/abnormal . HGB (test code = 9.1 g/dL 12.2-16.4 L 718-7) HCT (test code = 31.9 % 38.4-49.3 L 4544-3) MCV (test code = 78.0 fL 81.7-95.6 L 787-2) MCH (test code = 22.2 pg 26.1-32.7 L 785-6) MCHC (test code = 28.5 g/dL 31.2-35 L 786-4) RDW-SD (test code = 47.8 fL 38.5-51.6 51030-5) RDW-CV (test code = 17.1 % 12.1-15.4 H 788-0) PLT (test code = See_Comment L [Automated 777-3) message] The sy stem which generated this result transmitted reference range : 150 - 328 10*3/ ?L. The reference r fernando was not used to interpret this result as normal/abnormal . MPV (test code = 9.0 fL 9.8-13 L 03476-0) NRBC/100 WBC (test See_Comment [Automat ed code = 5051472649) message] The system which generated this result transmitted reference range : 0.0 - 10.0 /100 WBCs. The refer ence range was not u sed to interpret th is result as normal/abnormal . NRBC x10^3 (test code <0.01 See_Comment [Auto mated = 2013037446) message] The s ystem which generated this result transmitted reference range : 10*3/?L. The reference range was not used to interpret this result as normal/abnormal . GRAN MAT (NEUT) % 72.3 % (test code = 770-8) IMM GRAN % (test code 1.20 % = 4242610844) LYMPH % (test code = 15.7 % 736-9) MONO % (test code = 10.0 % 5905-5) EOS % (test code = 0.0 % 713-8) BASO % (test code = 0.8 % 706-2) GRAN MAT x10^3(ANC) 1.80 10*3/uL 1.99-6.95 L (test code = 9231990879) IMM GRAN x10^3 (test 0.03 10*3/uL 0-0.06 code = 7668191292) LYMPH x10^3 (test code 0.39 10*3/uL 1.09-3.23 L = 731-0) MONO x10^3 (test code 0.25 10*3/uL 0.36-1.02 L = 742-7) EOS x10^3 (test code = <0.03 0.06-0.53 L 711-2) BASO x10^3 (test code <0.03 0.01-0.09 = 704-7) Lab Interpretation Abnormal (test code = 89170-7) [facility] [id number] 00:13:00 Test Item Value Reference Range Interpretation Comments TROPONIN I (test 0.303 ng/mL See_Comment H [Automated code = 2108332017) message] The system which generated this result transmitted reference range : <=0.034. The reference range was not used to interpret this result as normal/abnormal . HAVEN (test code = Equal or Less than HAVEN) 0.034 ng/ml---Normal ?Note: Cardiac troponin begins to rise 3-4 hours after the onset of ischemia. Repeat in 4-6 hours if the sample was drawn within 3-4 hours of the onset of the symptom and found normal. Between 0.035 and 0.120 ng/mL--- Borderline. Questionable myocardial injury or necrosis ? ?Note: Serial measurement may be necessary to confirm or exclude the diagnosis of myocardial injury or necrosis; Clinical correlation (symptoms, EKGs, imaging studies, and others) required; Repeat in 4-6 hours if clinically indicated. ? Equal or Higher than 0.121 ng/mL---Abnormal. Myocardial Injury or Necrosis Likely ? Biotin has been reported to cause a negative bias, interpret results relative to patient's use of biotin. ? Lab Interpretation Abnormal (test code = 03577-9) [facility] Temple[facility]-TERMINAL [id number] 00:10:00 Test Item Value Reference Range Interpretation Comments NT-proBNP (test code 3030 pg/mL See_Comment H [Autom ated = 2765681637) message] The system which generated this result transmitted reference range : <=125. The reference range was not used to interpret this result as normal/abnormal . HAVEN (test code = HAVEN) Biotin has been reported to cause a negative bias, interpret results relative to patient's use of biotin. Lab Interpretation Abnormal (test code = 11258-1) [facility] TempleACTIV[facility] PARTIAL THRMPLAS [id number] 00:04:00 Test Item Value Reference Range Interpretation Comments APTT Patient (test See_Comment H [Automat ed code = 3173-2) message] The system which generated this result transmitted reference range : 23 - 38 Seconds . The reference range was not used to interpr et this result as normal/abnormal . HAVEN (test code = HAVEN) The [facility] patient population mean normal value for aPTT is 30 seconds. Lab Interpretation Abnormal (test code = 66541-7) [facility]. METABOLIC PANEL (56418)2020-07-13 00:02:00 Test Item Value Reference Range Interpretation Comments NA (test code = 137 mmol/L 135-145 3985692434) K (test code = 4.0 mmol/L 3.5-5 9381923004) CL (test code = 105 mmol/L 98-108 4269827048) CO2 TOTAL (test code = 25 mmol/L 23-31 1850413518) AGAP (test code = 2-16 5948828140) BUN (test code = 28 mg/dL 7-23 H 5757878319) GLUCOSE (test code = 118 mg/dL 70-110 H 7144913552) CREATININE (test code = 1.69 mg/dL 0.6-1.25 H 4530626409) TOTAL BILI (test code = 0.8 mg/dL 0.1-1.1 1439964493) CALCIUM (test code = 8.1 mg/dL 8.6-10.6 L 6451508938) T PROTEIN (test code = 7.0 g/dL 6.3-8.2 2078845455) ALBUMIN (test code = 3.6 g/dL 3.5-5 8786052664) ALK PHOS (test code = 66 U/L 34-122 8127536767) ALTv (test code = 14 U/L 5-50 1742-6) AST(SGOT) (test code = 39 U/L 13-40 1745688656) eGFR Calculation mL/min/1.73m2 (Non-) (test code = 0561020261) eGFR Calculation mL/min/1.73m2 () (test code = 6059178457) HAVEN (test code = HAVEN) Association of Glomerular Filtration Rate (GFR) and Staging of Kidney Disease* + --+ --+ ------+| GFR (mL/min/1.73 m2) ?| With Kidney Damage ?| ?Without Kidney Damage+ --------+ --------+ +| ?>90 ?| ?Stage one ?| ? Normal ?+ ---+ ---+ -------+| ?60-89 ?| ?Stage two ?| ? Decreased GFR ? + --+ --+ ------+| ?30-59 ?| ?Stage three ?| ? Stage three ? + --+ --+ ------+| ?15-29 ?| ?Stage four ? | ? Stage four ?+ ---+ ---+ -------+| ?<15 (or dialysis) ? ?| ?Stage five ? | ? Stage five ?+ ---+ ---+ -------+ *Each stage assumes the associated GFR level has been in effect for at least three months. ?Stages 1 to 5, with or without kidney disease, indicate chronic kidney disease. Notes: Determination of stages one and two (with eGFR >59mL/min/1.73 m2) requires estimation of kidney damage for at least three months as defined by structural or functional abnormalities of the kidney, manifested by either:Pathological abnormalities or Markers of kidney damage (including abnormalities in the composition of the blood or urine or abnormalities in imaging tests). Lab Interpretation Abnormal (test code = 22521-3) [facility] TemplePROTHROMBIN TIME / [id number] 00:01:00 Test Item Value Reference Range Interpretation Comments PROTIME PATIENT (test See_Comment H [Auto mated message] code = 5964-2) The system [employer] generated this result transmitted ref erence range: 12.0 - 1 4.7 Seconds. The reference range was not used to int erpret this result as normal/abnormal . INR (test code = 6301-6) Nor mal INR <1.1; Warfarin Therap eutic range 2.0 to 3. 0 or 2.5 to 3.5, dep ending upon the indica tions. Lab Interpretation (test Abnormal code = 31188-7) [facility] TempleCOVID-[facility] (ID NOW RAPID TESTING)2020-07-12 23:58:00 Test Item Value Reference Range Interpretation Comments SARS-CoV-2 Rapid ID NOW Positive Not Detected A (test code = 54489-9) HAVEN (test code = HAVEN) ID NOW COVID-19 Assay is an isothermal nucleic acid amplification test intended for the qualitative detection of nucleic acid from SARS-CoV-2 viral RNA in nasopharyngeal ([employer]) specimens. It is used under Emergency Use Authorization (EUA) by FDA. The limit of detection (LOD) of the assay is 125 Genome Equivalents/mL. A positive result is indicative of the presence of SARS-CoV-2 RNA. ?Clinical correlation with patient history and other diagnostic information is necessary to determine patient infection status. A negative (Not Detected) result does not preclude SARS-CoV-2 infection. In patients with clinical symptoms and other tests that are consistent with SARS-CoV-2 infection, negative results should be treated as presumptive negative and a new specimen should be tested with alternative PCR molecular test. Invalid: Please collect a new specimen for repeat patient testing if clinically indicated. Lab Interpretation Abnormal (test code = 70973-8) [facility] TempleLactic Acid Whole [id number] 23:38:00 Test Item Value Reference Range Interpretation Comments LACTIC ACID (test code = 1.72 mmol/L 8053570739) [facility] TempleAMIODARONE & [id number] 02:24:00 Test Item Value Reference Range Interpretation Comments AMIODARONE (test code 0.4 ug/mL 0.5-2.0 L INTERP RETIVE = 3330-8) INFORMATION: Amiodarone Refe rence Interval: Thera peutic Range ?0. 5-2.0 ug/mLToxic Leve l ? ? Greater than 3. 0 ug/mL Toxic concentra tions may exacerbate arrhythmias, ca use liver and lung toxicity, and t hyroid dysfunction. Th e concentration o f desethylamiodar one, an active major metabolite, is also reported, but n o therapeutic ran ge is established. At steady-state, t he metabolite concentration i s similar to the amiodarone concentration. Test developed and characteristics determined by [facility]. S ee Compliance Stat ement B: [employer]/ CS N-WOODY-AMIO (test code 0.6 ug/mL Perfor med By: [facility] = 6774-4) [address] [id number] Director: Allyson Flynn MD Lab Interpretation Abnormal (test code = 64763-1) [facility] TempleVancomycin Trough Level - Draw no more than 60 minutes before the 0600 dose.2020-06-27 14:09:00 Test Item Value Reference Range Interpretation Comments VANCO TROUGH (test code 17.0 ug/mL 10-20 = 8187154849) HAVEN (test code = HAVEN) Toxic Range: ?>20 ug/mL 15-20 ug/mL is recommended for severe infection or when Vancomycin KO is greater than or equal to 2. Lab Interpretation (test Normal code = 78381-5) [facility] METABOLIC PANEL (NA, K, CL, CO2, GLUCOSE, BUN, CREATININE, CA)2020-06-27 14:04:00 Test Item Value Reference Range Interpretation Comments NA (test code = 139 mmol/L 135-145 5467704895) K (test code = 4.7 mmol/L 3.5-5 5518060304) CL (test code = 107 mmol/L 98-108 7099653707) CO2 TOTAL (test code = 25 mmol/L 23-31 7379801178) AGAP (test code = 2-16 3580890720) BUN (test code = 16 mg/dL 7-23 2462434246) GLUCOSE (test code = 99 mg/dL 70-110 0603118743) CREATININE (test code = 0.88 mg/dL 0.6-1.25 4491355471) CALCIUM (test code = 7.9 mg/dL 8.6-10.6 L 4727611318) eGFR Calculation mL/min/1.73m2 (Non-) (test code = 2950501172) eGFR Calculation mL/min/1.73m2 () (test code = 6523843996) HAVEN (test code = HAVEN) Association of Glomerular Filtration Rate (GFR) and Staging of Kidney Disease* + --+ --+ ------+| GFR (mL/min/1.73 m2) ?| With Kidney Damage ?| ?Without Kidney Damage+ --------+ --------+ +| ?>90 ?| ?Stage one ?| ? Normal ?+ ---+ ---+ -------+| ?60-89 ?| ?Stage two ?| ? Decreased GFR ? + --+ --+ ------+| ?30-59 ?| ?Stage three ?| ? Stage three ? + --+ --+ ------+| ?15-29 ?| ?Stage four ? | ? Stage four ?+ ---+ ---+ -------+| ?<15 (or dialysis) ? ?| ?Stage five ? | ? Stage five ?+ ---+ ---+ -------+ *Each stage assumes the associated GFR level has been in effect for at least three months. ?Stages 1 to 5, with or without kidney disease, indicate chronic kidney disease. Notes: Determination of stages one and two (with eGFR >59mL/min/1.73 m2) requires estimation of kidney damage for at least three months as defined by structural or functional abnormalities of the kidney, manifested by either:Pathological abnormalities or Markers of kidney damage (including abnormalities in the composition of the blood or urine or abnormalities in imaging tests). Lab Interpretation Abnormal (test code = 96321-3) [facility] acute [facility] WITH [id number] 12:36:00 Test Item Value Reference Range Interpretation Comments WBC (test code = See_Comment L [Automated 6690-2) message] The sy stem which generated this result transmitted reference range : 4.20 - 10.70 10*3/?L. The reference range was not used to interpret this result as normal/abnormal . RBC (test code = See_Comment L [Automated 789-8) message] The sy stem which generated this result transmitted reference range : 4.26 - 5.52 10*6/?L. The reference range was not used to interpret this result as normal/abnormal . HGB (test code = 8.3 g/dL 12.2-16.4 L 718-7) HCT (test code = 28.5 % 38.4-49.3 L 4544-3) MCV (test code = 78.9 fL 81.7-95.6 L 787-2) MCH (test code = 23.0 pg 26.1-32.7 L 785-6) MCHC (test code = 29.1 g/dL 31.2-35 L 786-4) RDW-SD (test code = 43.5 fL 38.5-51.6 03525-7) RDW-CV (test code = 15.1 % 12.1-15.4 788-0) PLT (test code = See_Comment [Automated 777-3) message] The sy stem which generated this result transmitted reference range : 150 - 328 10*3/ ?L. The reference r fernando was not used to interpret this result as normal/abnormal . MPV (test code = 9.2 fL 9.8-13 L 60574-8) NRBC/100 WBC (test See_Comment [Automat ed code = 7901497780) message] The system which generated this result transmitted reference range : 0.0 - 10.0 /100 WBCs. The refer ence range was not u sed to interpret th is result as normal/abnormal . NRBC x10^3 (test code <0.01 See_Comment [Auto mated = 4668071561) message] The s ystem which generated this result transmitted reference range : 10*3/?L. The reference range was not used to interpret this result as normal/abnormal . GRAN MAT (NEUT) % 71.7 % (test code = 770-8) IMM GRAN % (test code 1.20 % = 0526365761) LYMPH % (test code = 14.3 % 736-9) MONO % (test code = 7.2 % 5905-5) EOS % (test code = 5.3 % 713-8) BASO % (test code = 0.3 % 706-2) GRAN MAT x10^3(ANC) 2.30 10*3/uL 1.99-6.95 (test code = 5446112986) IMM GRAN x10^3 (test 0.04 10*3/uL 0-0.06 code = 5207990900) LYMPH x10^3 (test code 0.46 10*3/uL 1.09-3.23 L = 731-0) MONO x10^3 (test code 0.23 10*3/uL 0.36-1.02 L = 742-7) EOS x10^3 (test code = 0.17 10*3/uL 0.06-0.53 711-2) BASO x10^3 (test code <0.03 0.01-0.09 = 704-7) Lab Interpretation Abnormal (test code = 74189-7) [facility] TempleBLOOD CULTURE [id number] 21:01:00 Test Item Value Reference Range Interpretation Comments Blood Culture-Aerobic No organisms No growth Previo us (test code = 24705-6) isolated prelim inary verified result was Culture In Progress on 06/21/2020 at 1801 CSTPreviou s preliminary verified result was No growth a t 24 hours on 06/22/2020 at 1501 CSTPreviou s preliminary verified result was No growth a t 48 hours on 06/23/2020 at 150 1 CSTPrevious preliminary verified result was No growth a t 72 hours on 06/24/2020 at 150 1 [employer] Blood No organisms No growth Previous Culture-Anaerobic isolated preliminar y (test code = 06435-5) verifi ed result was Culture In Progress on 06/21/2020 at 1801 CSTPreviou s preliminary verified result was No growth a t 24 hours on 06/22/2020 at 1501 CSTPreviou s preliminary verified result was No growth a t 48 hours on 06/23/2020 at 150 1 CSTPrevious preliminary verified result was No growth a t 72 hours on 06/24/2020 at 150 1 [employer] Lab Interpretation Normal (test code = 08433-9) [facility] C[facility] [id number] 21:01:00 Test Item Value Reference Range Interpretation Comments Blood Culture-Aerobic No organisms No growth Previo us (test code = 79007-1) isolated prelim inary verified result was Culture In Progress on 06/21/2020 at 1801 CSTPreviou s preliminary verified result was No growth a t 24 hours on 06/22/2020 at 1501 CSTPreviou s preliminary verified result was No growth a t 48 hours on 06/23/2020 at 150 1 CSTPrevious preliminary verified result was No growth a t 72 hours on 06/24/2020 at 150 1 [employer] Blood No organisms No growth Previous Culture-Anaerobic isolated preliminar y (test code = 43832-1) verifi ed result was Culture In Progress on 06/21/2020 at 1801 CSTPreviou s preliminary verified result was No growth a t 24 hours on 06/22/2020 at 1501 CSTPreviou s preliminary verified result was No growth a t 48 hours on 06/23/2020 at 150 1 CSTPrevious preliminary verified result was No growth a t 72 hours on 06/24/2020 at 150 1 [employer] Lab Interpretation Normal (test code = 64511-0) [facility] Temple[facility]com[facility] Trough Level - Draw immediately prior to the 0630 scheduled dose, but, no more than 60 minutes before the 0630 scheduled dose.2020-06-26 14:06:00 Test Item Value Reference Range Interpretation Comments VANCO TROUGH (test code 19.5 ug/mL 10-20 = 4416084417) HAVEN (test code = HAVEN) Toxic Range: ?>20 ug/mL 15-20 ug/mL is recommended for severe infection or when Vancomycin KO is greater than or equal to 2. Lab Interpretation (test Normal code = 33916-8) [facility] METABOLIC PANEL (NA, K, CL, CO2, GLUCOSE, BUN, CREATININE, CA)2020-06-26 14:01:00 Test Item Value Reference Range Interpretation Comments NA (test code = 138 mmol/L 135-145 3182550203) K (test code = 4.6 mmol/L 3.5-5 0027063792) CL (test code = 104 mmol/L 98-108 7837292713) CO2 TOTAL (test code = 23 mmol/L 23-31 9834770424) AGAP (test code = 2-16 2376895122) BUN (test code = 17 mg/dL 7-23 8053644828) GLUCOSE (test code = 109 mg/dL 70-110 2603579955) CREATININE (test code = 1.00 mg/dL 0.6-1.25 2611795503) CALCIUM (test code = 8.4 mg/dL 8.6-10.6 L 1597510572) eGFR Calculation mL/min/1.73m2 (Non-) (test code = 3228507947) eGFR Calculation mL/min/1.73m2 () (test code = 5773325858) HAVEN (test code = HAVEN) Association of Glomerular Filtration Rate (GFR) and Staging of Kidney Disease* + --+ --+ ------+| GFR (mL/min/1.73 m2) ?| With Kidney Damage ?| ?Without Kidney Damage+ --------+ --------+ +| ?>90 ?| ?Stage one ?| ? Normal ?+ ---+ ---+ -------+| ?60-89 ?| ?Stage two ?| ? Decreased GFR ? + --+ --+ ------+| ?30-59 ?| ?Stage three ?| ? Stage three ? + --+ --+ ------+| ?15-29 ?| ?Stage four ? | ? Stage four ?+ ---+ ---+ -------+| ?<15 (or dialysis) ? ?| ?Stage five ? | ? Stage five ?+ ---+ ---+ -------+ *Each stage assumes the associated GFR level has been in effect for at least three months. ?Stages 1 to 5, with or without kidney disease, indicate chronic kidney disease. Notes: Determination of stages one and two (with eGFR >59mL/min/1.73 m2) requires estimation of kidney damage for at least three months as defined by structural or functional abnormalities of the kidney, manifested by either:Pathological abnormalities or Markers of kidney damage (including abnormalities in the composition of the blood or urine or abnormalities in imaging tests). Lab Interpretation Abnormal (test code = 27309-4) [facility] acute hospital WITH [id number] 13:33:00 Test Item Value Reference Range Interpretation Comments WBC (test code = See_Comment L [Automated 9690-2) message] The sy stem which generated this result transmitted reference range : 4.20 - 10.70 10*3/?L. The reference range was not used to interpret this result as normal/abnormal . RBC (test code = See_Comment L [Automated 789-8) message] The sy stem which generated this result transmitted reference range : 4.26 - 5.52 10*6/?L. The reference range was not used to interpret this result as normal/abnormal . HGB (test code = 9.3 g/dL 12.2-16.4 L 718-7) HCT (test code = 31.4 % 38.4-49.3 L 4544-3) MCV (test code = 79.1 fL 81.7-95.6 L 787-2) MCH (test code = 23.4 pg 26.1-32.7 L 785-6) MCHC (test code = 29.6 g/dL 31.2-35 L 786-4) RDW-SD (test code = 44.3 fL 38.5-51.6 76013-1) RDW-CV (test code = 15.4 % 12.1-15.4 788-0) PLT (test code = See_Comment [Automated 777-3) message] The sy stem which generated this result transmitted reference range : 150 - 328 10*3/ ?L. The reference r fernando was not used to interpret this result as normal/abnormal . MPV (test code = 9.2 fL 9.8-13 L 82455-3) NRBC/100 WBC (test See_Comment [Automat ed code = 8114136571) message] The system which generated this result transmitted reference range : 0.0 - 10.0 /100 WBCs. The refer ence range was not u sed to interpret th is result as normal/abnormal . NRBC x10^3 (test code <0.01 See_Comment [Auto mated = 1947933123) message] The s ystem which generated this result transmitted reference range : 10*3/?L. The reference range was not used to interpret this result as normal/abnormal . GRAN MAT (NEUT) % 66.2 % (test code = 770-8) IMM GRAN % (test code 1.10 % = 8576666695) LYMPH % (test code = 18.7 % 736-9) MONO % (test code = 6.9 % 5905-5) EOS % (test code = 6.6 % 713-8) BASO % (test code = 0.5 % 706-2) GRAN MAT x10^3(ANC) 2.41 10*3/uL 1.99-6.95 (test code = 0890432716) IMM GRAN x10^3 (test 0.04 10*3/uL 0-0.06 code = 7507093755) LYMPH x10^3 (test code 0.68 10*3/uL 1.09-3.23 L = 731-0) MONO x10^3 (test code 0.25 10*3/uL 0.36-1.02 L = 742-7) EOS x10^3 (test code = 0.24 10*3/uL 0.06-0.53 711-2) BASO x10^3 (test code <0.03 0.01-0.09 = 704-7) Lab Interpretation Abnormal (test code = 40120-3) [facility] T[facility] Level - Draw no more than 60 minutes before the 1830 dose.2020-06-26 00:47:00 Test Item Value Reference Range Interpretation Comments VANCO TROUGH (test code 21.9 ug/mL 10-20 H = 7679238098) HAVEN (test code = HAVEN) Toxic Range: ?>20 ug/mL 15-20 ug/mL is recommended for severe infection or when Vancomycin KO is greater than or equal to 2. Lab Interpretation (test Abnormal code = 76679-7) [facility] CBC with [id number] 13:19:00 Test Item Value Reference Range Interpretation Comments WBC (test code = See_Comment L [Automated 6690-2) message] The sy stem which generated this result transmitted reference range : 4.20 - 10.70 10*3/?L. The reference range was not used to interpret this result as normal/abnormal . RBC (test code = See_Comment L [Automated 789-8) message] The sy stem which generated this result transmitted reference range : 4.26 - 5.52 10*6/?L. The reference range was not used to interpret this result as normal/abnormal . HGB (test code = 9.6 g/dL 12.2-16.4 L 718-7) HCT (test code = 33.3 % 38.4-49.3 L 4544-3) MCV (test code = 79.9 fL 81.7-95.6 L 787-2) MCH (test code = 23.0 pg 26.1-32.7 L 785-6) MCHC (test code = 28.8 g/dL 31.2-35 L 786-4) RDW-SD (test code = 44.4 fL 38.5-51.6 00063-6) RDW-CV (test code = 15.2 % 12.1-15.4 788-0) PLT (test code = See_Comment [Automated 777-3) message] The sy stem which generated this result transmitted reference range : 150 - 328 10*3/ ?L. The reference r fernando was not used to interpret this result as normal/abnormal . MPV (test code = 9.1 fL 9.8-13 L 06055-1) NRBC/100 WBC (test See_Comment [Automat ed code = 5996045602) message] The system which generated this result transmitted reference range : 0.0 - 10.0 /100 WBCs. The refer ence range was not u sed to interpret th is result as normal/abnormal . NRBC x10^3 (test code <0.01 See_Comment [Auto mated = 0623047839) message] The s ystem which generated this result transmitted reference range : 10*3/?L. The reference range was not used to interpret this result as normal/abnormal . GRAN MAT (NEUT) % 62.4 % (test code = 770-8) IMM GRAN % (test code 1.20 % = 5756947361) LYMPH % (test code = 19.6 % 736-9) MONO % (test code = 7.8 % 5905-5) EOS % (test code = 8.7 % 713-8) BASO % (test code = 0.3 % 706-2) GRAN MAT x10^3(ANC) 2.01 10*3/uL 1.99-6.95 (test code = 2442600910) IMM GRAN x10^3 (test 0.04 10*3/uL 0-0.06 code = 2889038824) LYMPH x10^3 (test code 0.63 10*3/uL 1.09-3.23 L = 731-0) MONO x10^3 (test code 0.25 10*3/uL 0.36-1.02 L = 742-7) EOS x10^3 (test code = 0.28 10*3/uL 0.06-0.53 711-2) BASO x10^3 (test code <0.03 0.01-0.09 = 704-7) Lab Interpretation Abnormal (test code = 73125-6) [facility] T[facility] - Draw immediately prior to the 0630 dose, but, no more than 60 minutes [id number] 13:04:00 Test Item Value Reference Range Interpretation Comments VANCO TROUGH (test code 24.9 ug/mL 10-20 H = 1740825067) HAVEN (test code = HAVEN) Toxic Range: ?>20 ug/mL 15-20 ug/mL is recommended for severe infection or when Vancomycin KO is greater than or equal to 2. Lab Interpretation (test Abnormal code = 53015-8) [facility] Basic Metabolic Panel (NA, K, CL, CO2, GLUCOSE, BUN, CREATININE, CA)2020-06-25 12:59:00 Test Item Value Reference Range Interpretation Comments NA (test code = 138 mmol/L 135-145 9521435201) K (test code = 4.8 mmol/L 3.5-5 8923208488) CL (test code = 107 mmol/L 98-108 3594722698) CO2 TOTAL (test code = 22 mmol/L 23-31 L 7006148588) AGAP (test code = 2-16 9277032691) BUN (test code = 16 mg/dL 7-23 7584583597) GLUCOSE (test code = 115 mg/dL 70-110 H 0316232318) CREATININE (test code = 0.99 mg/dL 0.6-1.25 6464407160) CALCIUM (test code = 8.6 mg/dL 8.6-10.6 1578840467) eGFR Calculation mL/min/1.73m2 (Non-) (test code = 6750227703) eGFR Calculation mL/min/1.73m2 () (test code = 6377828871) HAVEN (test code = HAVEN) Association of Glomerular Filtration Rate (GFR) and Staging of Kidney Disease* + --+ --+ ------+| GFR (mL/min/1.73 m2) ?| With Kidney Damage ?| ?Without Kidney Damage+ --------+ --------+ +| ?>90 ?| ?Stage one ?| ? Normal ?+ ---+ ---+ -------+| ?60-89 ?| ?Stage two ?| ? Decreased GFR ? + --+ --+ ------+| ?30-59 ?| ?Stage three ?| ? Stage three ? + --+ --+ ------+| ?15-29 ?| ?Stage four ? | ? Stage four ?+ ---+ ---+ -------+| ?<15 (or dialysis) ? ?| ?Stage five ? | ? Stage five ?+ ---+ ---+ -------+ *Each stage assumes the associated GFR level has been in effect for at least three months. ?Stages 1 to 5, with or without kidney disease, indicate chronic kidney disease. Notes: Determination of stages one and two (with eGFR >59mL/min/1.73 m2) requires estimation of kidney damage for at least three months as defined by structural or functional abnormalities of the kidney, manifested by either:Pathological abnormalities or Markers of kidney damage (including abnormalities in the composition of the blood or urine or abnormalities in imaging tests). Lab Interpretation Abnormal (test code = 59699-6) [facility] - Draw immediately prior to the 1430 dose, but, no more than 60 minutes [id number] 21:01:00 Test Item Value Reference Range Interpretation Comments VANCO TROUGH (test code 28.8 ug/mL 10-20 H = 4017714081) HAVEN (test code = HAVEN) Toxic Range: ?>20 ug/mL 15-20 ug/mL is recommended for severe infection or when Vancomycin KO is greater than or equal to 2. Lab Interpretation (test Abnormal code = 65288-5) [facility] with [id number] 15:25:00 Test Item Value Reference Range Interpretation Comments WBC (test code = See_Comment L [Automated 6690-2) message] The sy stem which generated this result transmitted reference range : 4.20 - 10.70 10*3/?L. The reference range was not used to interpret this result as normal/abnormal . RBC (test code = See_Comment L [Automated 789-8) message] The sy stem which generated this result transmitted reference range : 4.26 - 5.52 10*6/?L. The reference range was not used to interpret this result as normal/abnormal . HGB (test code = 8.9 g/dL 12.2-16.4 L 718-7) HCT (test code = 29.5 % 38.4-49.3 L 4544-3) MCV (test code = 78.9 fL 81.7-95.6 L 787-2) MCH (test code = 23.8 pg 26.1-32.7 L 785-6) MCHC (test code = 30.2 g/dL 31.2-35 L 786-4) RDW-SD (test code = 43.7 fL 38.5-51.6 26945-4) RDW-CV (test code = 15.3 % 12.1-15.4 788-0) PLT (test code = See_Comment [Automated 777-3) message] The sy stem which generated this result transmitted reference range : 150 - 328 10*3/ ?L. The reference r fernando was not used to interpret this result as normal/abnormal . MPV (test code = 8.9 fL 9.8-13 L 51817-3) NRBC/100 WBC (test See_Comment [Automat ed code = 0847691797) message] The system which generated this result transmitted reference range : 0.0 - 10.0 /100 WBCs. The refer ence range was not u sed to interpret th is result as normal/abnormal . NRBC x10^3 (test code <0.01 See_Comment [Auto mated = 7566666731) message] The s ystem which generated this result transmitted reference range : 10*3/?L. The reference range was not used to interpret this result as normal/abnormal . GRAN MAT (NEUT) % 71.4 % (test code = 770-8) IMM GRAN % (test code 1.10 % = 0538334918) LYMPH % (test code = 11.0 % 736-9) MONO % (test code = 8.4 % 5905-5) EOS % (test code = 7.7 % 713-8) BASO % (test code = 0.4 % 706-2) GRAN MAT x10^3(ANC) 1.95 10*3/uL 1.99-6.95 L (test code = 7391326360) IMM GRAN x10^3 (test 0.03 10*3/uL 0-0.06 code = 9974685370) LYMPH x10^3 (test code 0.30 10*3/uL 1.09-3.23 L = 731-0) MONO x10^3 (test code 0.23 10*3/uL 0.36-1.02 L = 742-7) EOS x10^3 (test code = 0.21 10*3/uL 0.06-0.53 711-2) BASO x10^3 (test code <0.03 0.01-0.09 = 704-7) Lab Interpretation Abnormal (test code = 72260-1) [facility] Basic Metabolic Panel (NA, K, CL, CO2, GLUCOSE, BUN, CREATININE, CA)2020-06-24 13:35:00 Test Item Value Reference Range Interpretation Comments NA (test code = 138 mmol/L 135-145 8112336983) K (test code = 4.6 mmol/L 3.5-5 9571765839) CL (test code = 107 mmol/L 98-108 8604869526) CO2 TOTAL (test code = 22 mmol/L 23-31 L 2323315407) AGAP (test code = 2-16 1249355356) BUN (test code = 21 mg/dL 7-23 6658353779) GLUCOSE (test code = 106 mg/dL 70-110 3521416268) CREATININE (test code = 1.10 mg/dL 0.6-1.25 5506404428) CALCIUM (test code = 8.3 mg/dL 8.6-10.6 L 6307447593) eGFR Calculation mL/min/1.73m2 (Non-) (test code = 8263275680) eGFR Calculation mL/min/1.73m2 () (test code = 0348681356) HAVEN (test code = HAVEN) Association of Glomerular Filtration Rate (GFR) and Staging of Kidney Disease* + --+ --+ ------+| GFR (mL/min/1.73 m2) ?| With Kidney Damage ?| ?Without Kidney Damage+ --------+ --------+ +| ?>90 ?| ?Stage one ?| ? Normal ?+ ---+ ---+ -------+| ?60-89 ?| ?Stage two ?| ? Decreased GFR ? + --+ --+ ------+| ?30-59 ?| ?Stage three ?| ? Stage three ? + --+ --+ ------+| ?15-29 ?| ?Stage four ? | ? Stage four ?+ ---+ ---+ -------+| ?<15 (or dialysis) ? ?| ?Stage five ? | ? Stage five ?+ ---+ ---+ -------+ *Each stage assumes the associated GFR level has been in effect for at least three months. ?Stages 1 to 5, with or without kidney disease, indicate chronic kidney disease. Notes: Determination of stages one and two (with eGFR >59mL/min/1.73 m2) requires estimation of kidney damage for at least three months as defined by structural or functional abnormalities of the kidney, manifested by either:Pathological abnormalities or Markers of kidney damage (including abnormalities in the composition of the blood or urine or abnormalities in imaging tests). Lab Interpretation Abnormal (test code = 85144-7) [facility] COVID [id number] 23:45:00COVID DMT InterpretationInterpretation/Recommendations: Molecular NAAT Tests for Active Infection with the SARS-CoV-2 Virus: This result indicates that the patient has been infected with the ONAD-HgL-3llbpj that causes COVID-19 illness. The patient should be considered infectious and able to transmitthe virus within the first 10 days after symptom onset in ordd-mq-agobhpux illness and within the first 20 days after symptom onset in critical illness and/or severe immunocompromise. Asymptomatic patients are considered infectious for the first 10 days subsequent to the initial positive test result. From the onset of symptoms, if any, this result is likely to remain positive for 2 to 4 weeks. Tests for IgM and/or IgG Antibodies to SARS-CoV-2 Virus: Testing for IgM and IgG antibodies 1-3 weeks after illness onset will indicate whether the patient has produced antibodies to the virus. At this time, it is not known if the production of antibodies - specifically IgG antibodies - indicates whether the patient is immune to future infections with the SARS-CoV-2 virus. Interpretation Result Comments:These interpretation comments are based upon all COVID-19 testing the patient has had at [facility], including molecular NAAT testing ( more commonly known as PCR testing and Rapid ID Now testing) and antibody testing. It does not take into account any testing that a patient has had outside of the [facility] medical record. [facility] LABORATORYSERVICESCOVID RapeydxPJQW-LzI-5 Rapid ID NOW (no units) ? ? Date ? Value ? 06/21/2020 ? Positive (A) ? [facility] SERVICESUn[facility] CampusVancom[facility] Trough Level - Draw within 30 minutes prior to 4TH dose.2020-06-23 19:45:00 Test Item Value Reference Range Interpretation Comments VANCO TROUGH (test code 25.0 ug/mL 10-20 H = 1603548547) HAVEN (test code = HAVEN) Toxic Range: ?>20 ug/mL 15-20 ug/mL is recommended for severe infection or when Vancomycin KO is greater than or equal to 2. Lab Interpretation (test Abnormal code = 09325-8) [facility] (NA, K, CL, CO2, GLUCOSE, BUN, CREATININE, CA)2020-06-23 13:04:00 Test Item Value Reference Range Interpretation Comments NA (test code = 138 mmol/L 135-145 1924221955) K (test code = 4.3 mmol/L 3.5-5 7340326195) CL (test code = 106 mmol/L 98-108 3176817044) CO2 TOTAL (test code = 23 mmol/L 23-31 8223837884) AGAP (test code = 2-16 2621446382) BUN (test code = 16 mg/dL 7-23 5624315960) GLUCOSE (test code = 103 mg/dL 70-110 0726121366) CREATININE (test code = 0.98 mg/dL 0.6-1.25 4240199573) CALCIUM (test code = 8.4 mg/dL 8.6-10.6 L 6290868979) eGFR Calculation mL/min/1.73m2 (Non-) (test code = 0196948644) eGFR Calculation mL/min/1.73m2 () (test code = 5968235260) HAVEN (test code = HAVEN) Association of Glomerular Filtration Rate (GFR) and Staging of Kidney Disease* + --+ --+ ------+| GFR (mL/min/1.73 m2) ?| With Kidney Damage ?| ?Without Kidney Damage+ --------+ --------+ +| ?>90 ?| ?Stage one ?| ? Normal ?+ ---+ ---+ -------+| ?60-89 ?| ?Stage two ?| ? Decreased GFR ? + --+ --+ ------+| ?30-59 ?| ?Stage three ?| ? Stage three ? + --+ --+ ------+| ?15-29 ?| ?Stage four ? | ? Stage four ?+ ---+ ---+ -------+| ?<15 (or dialysis) ? ?| ?Stage five ? | ? Stage five ?+ ---+ ---+ -------+ *Each stage assumes the associated GFR level has been in effect for at least three months. ?Stages 1 to 5, with or without kidney disease, indicate chronic kidney disease. Notes: Determination of stages one and two (with eGFR >59mL/min/1.73 m2) requires estimation of kidney damage for at least three months as defined by structural or functional abnormalities of the kidney, manifested by either:Pathological abnormalities or Markers of kidney damage (including abnormalities in the composition of the blood or urine or abnormalities in imaging tests). Lab Interpretation Abnormal (test code = 72457-4) [facility] CBC with Rqrrfqfyougx2100-05-78 12:30:00 Test Item Value Reference Range Interpretation Comments WBC (test code = See_Comment L [Automated 6690-2) message] The sy stem which generated this result transmitted reference range : 4.20 - 10.70 10*3/?L. The reference range was not used to interpret this result as normal/abnormal . RBC (test code = See_Comment L [Automated 789-8) message] The sy stem which generated this result transmitted reference range : 4.26 - 5.52 10*6/?L. The reference range was not used to interpret this result as normal/abnormal . HGB (test code = 9.3 g/dL 12.2-16.4 L 718-7) HCT (test code = 31.0 % 38.4-49.3 L 4544-3) MCV (test code = 79.3 fL 81.7-95.6 L 787-2) MCH (test code = 23.8 pg 26.1-32.7 L 785-6) MCHC (test code = 30.0 g/dL 31.2-35 L 786-4) RDW-SD (test code = 44.4 fL 38.5-51.6 88924-9) RDW-CV (test code = 15.6 % 12.1-15.4 H 788-0) PLT (test code = See_Comment [Automated 777-3) message] The sy stem which generated this result transmitted reference range : 150 - 328 10*3/ ?L. The reference r fernando was not used to interpret this result as normal/abnormal . MPV (test code = 8.9 fL 9.8-13 L 11058-3) NRBC/100 WBC (test See_Comment [Automat ed code = 0650341471) message] The system which generated this result transmitted reference range : 0.0 - 10.0 /100 WBCs. The refer ence range was not u sed to interpret th is result as normal/abnormal . NRBC x10^3 (test code <0.01 See_Comment [Auto mated = 6590024508) message] The s ystem which generated this result transmitted reference range : 10*3/?L. The reference range was not used to interpret this result as normal/abnormal . GRAN MAT (NEUT) % 68.2 % (test code = 770-8) IMM GRAN % (test code 1.00 % = 5432100617) LYMPH % (test code = 17.5 % 736-9) MONO % (test code = 6.7 % 5905-5) EOS % (test code = 6.3 % 713-8) BASO % (test code = 0.3 % 706-2) GRAN MAT x10^3(ANC) 2.15 10*3/uL 1.99-6.95 (test code = 8757753177) IMM GRAN x10^3 (test 0.03 10*3/uL 0-0.06 code = 2120888249) LYMPH x10^3 (test code 0.55 10*3/uL 1.09-3.23 L = 731-0) MONO x10^3 (test code 0.21 10*3/uL 0.36-1.02 L = 742-7) EOS x10^3 (test code = 0.20 10*3/uL 0.06-0.53 711-2) BASO x10^3 (test code <0.03 0.01-0.09 = 704-7) Lab Interpretation Abnormal (test code = 82167-0) [facility] [id number] 15:33:00 Test Item Value Reference Range Interpretation Comments HS CRP (test code = 2247673836) 11.80 mg/dL <0.74 H Lab Interpretation (test code = Abnormal 87090-3) [facility]hest 1 Zilg2946-10-29 14:45:09 Bilateral subtle interstitial abnormality. Findings may represent degree ofinterstitial edema versus atypical infection. Prominent right hilum (at least in part exaggerated by suboptimalinspiratory volumes) may represent central vascular congestion versus lymphnodes. Preliminary Report Dictated by Resident: Leobardo Lucio MD., have reviewed this study and agree with theabove report.PROCEDURE: XR CHEST 1 VW CLINICAL INDICATION: COVID positive COMPARISON: None FINDINGS: Suboptimal inspiratory effort resulting in bronchovascular crowding andsubsegmental atelectasis. Subtle interstitial abnormality seen andperihilar regions, nonspecific. No pleural effusion or pneumothorax isseen. The heart is normal in size. Prominent right hilum is probablyslightly exaggerated by respiratory volumes. No acute bony abnormality. Moderate degenerative changes involving thepartially visualized right glenohumeral and acromioclavicular joints. [facility], Radiant Results Inft User - 06/22/2020 8:46 AM CSTPROCEDURE: XR CHEST 1 VWCLINICAL INDICATION: COVID positive COMPARISON: NoneFINDINGS:Suboptimal inspiratory effort resulting in bronchovascular crowding andsubsegmental atelectasis. Subtle interstitial abnormality seen andperihilar regions, nonspecific. No pleural effusion or pneumothorax isseen. The heart is normal in size. Prominent right hilum is probablyslightly exaggerated by respiratory volumes.No acute bony abnormality. Moderate degenerative changes involving thepartially visualized right glenohumeral and acromioclavicular joints.IMPRESSIONBilateral subtle intersti tial abnormality. Findings may represent degree ofinterstitial edema versus atypical infection. Prominent right hilum (at least in part exaggerated by suboptimalinspiratory volumes) may represent central vascular congestion versus lymphnodes.Preliminary Report Dictated by Resident: Leobardo Perez MD., have reviewed this study and agree with theabove report.[facility] with Differential 2020-06-22 12:36:00 Test Item Value Reference Range Interpretation Comments WBC (test code = See_Comment LL [Automated 6690-2) message] The sy stem which generated this result transmitted reference range : 4.20 - 10.70 10*3/?L. The reference range was not used to interpret this result as normal/abnormal . RBC (test code = See_Comment L [Automated 789-8) message] The sy stem which generated this result transmitted reference range : 4.26 - 5.52 10*6/?L. The reference range was not used to interpret this result as normal/abnormal . HGB (test code = 9.2 g/dL 12.2-16.4 L 718-7) HCT (test code = 31.5 % 38.4-49.3 L 4544-3) MCV (test code = 79.3 fL 81.7-95.6 L 787-2) MCH (test code = 23.2 pg 26.1-32.7 L 785-6) MCHC (test code = 29.2 g/dL 31.2-35 L 786-4) RDW-SD (test code = 44.2 fL 38.5-51.6 85463-0) RDW-CV (test code = 15.2 % 12.1-15.4 788-0) PLT (test code = See_Comment L [Automated 777-3) message] The sy stem which generated this result transmitted reference range : 150 - 328 10*3/ ?L. The reference r fernando was not used to interpret this result as normal/abnormal . MPV (test code = 8.8 fL 9.8-13 L 01502-0) NRBC/100 WBC (test See_Comment [Automat ed code = 9696961458) message] The system which generated this result transmitted reference range : 0.0 - 10.0 /100 WBCs. The refer ence range was not u sed to interpret th is result as normal/abnormal . NRBC x10^3 (test code <0.01 See_Comment [Auto mated = 1668977932) message] The s ystem which generated this result transmitted reference range : 10*3/?L. The reference range was not used to interpret this result as normal/abnormal . GRAN MAT (NEUT) % 74.8 % (test code = 770-8) IMM GRAN % (test code 0.70 % = 6969248256) LYMPH % (test code = 12.9 % 736-9) MONO % (test code = 6.1 % 5905-5) EOS % (test code = 4.8 % 713-8) BASO % (test code = 0.7 % 706-2) GRAN MAT x10^3(ANC) 1.10 10*3/uL 1.99-6.95 L (test code = 4577583551) IMM GRAN x10^3 (test <0.03 0-0.06 code = 3137441935) LYMPH x10^3 (test code 0.19 10*3/uL 1.09-3.23 L = 731-0) MONO x10^3 (test code 0.09 10*3/uL 0.36-1.02 L = 742-7) EOS x10^3 (test code = 0.07 10*3/uL 0.06-0.53 711-2) BASO x10^3 (test code <0.03 0.01-0.09 = 704-7) Lab Interpretation Abnormal (test code = 06521-9) [facility] Basic Metabolic Panel (NA, K, CL, CO2, GLUCOSE, BUN, CREATININE, CA)2020-06-22 11:38:00 Test Item Value Reference Range Interpretation Comments NA (test code = 140 mmol/L 135-145 7854445589) K (test code = 4.5 mmol/L 3.5-5 2053348833) CL (test code = 107 mmol/L 98-108 6986705504) CO2 TOTAL (test code = 24 mmol/L -31 1475947667) AGAP (test code = 2-16 0947603427) BUN (test code = 17 mg/dL 7-23 5965419320) GLUCOSE (test code = 110 mg/dL 70-110 3354044418) CREATININE (test code 0.96 mg/dL 0.6-1.25 = 4639845075) CALCIUM (test code = 8.6 mg/dL 8.6-10.6 6444783777) eGFR Calculation mL/min/1.73m2 (Non-) (test code = 4732702016) eGFR Calculation mL/min/1.73m2 () (test code = 6917228700) HAVEN (test code = HAVEN) Association of Glomerular Filtration Rate (GFR) and Staging of Kidney Disease* + -+ + ---+| GFR (mL/min/1.73 m2) ?| With Kidney Damage ?| ?Without Kidney Damage+ -------+ ------+ ---------+| ?>90 ?| ?Stage one ?| ? Normal ?+ --+ -+ ----+| ?60-89 ?| ?Stage two ?| ? Decreased GFR ? + -+ + ---+| ?30-59 ?| ?Stage three ?| ? Stage three ? + -+ + ---+| ?15-29 ?| ?Stage four ? | ? Stage four ?+ --+ -+ ----+| ?<15 (or dialysis) ? ?| ?Stage five ? | ? Stage five ?+ --+ -+ ----+ *Each stage assumes the associated GFR level has been in effect for at least three months. ?Stages 1 to 5, with or without kidney disease, indicate chronic kidney disease. Notes: Determination of stages one and two (with eGFR >59mL/min/1.73 m2) requires estimation of kidney damage for at least three months as defined by structural or functional abnormalities of the kidney, manifested by either:Pathological abnormalities or Markers of kidney damage (including abnormalities in the composition of the blood or urine or abnormalities in imaging tests). [facility]2020-12-31 05:28:00 Test Item Value Reference Range Interpretation Comments Procalcitonin (test 0.08 ng/mL <0.07 H code = 0361617761) HAVEN (test code = HAVEN) INTERPRETATION OF PROCALCITONIN RESULTS IN ADULTS >= 18 YEARS OF AGE Initiation and discontinuation of antibiotics on patients with suspected or confirmed Lower Respiratory Tract Infection in Adults >= 18 years of age. + +-------- --------+ + -----+|Procalcitonin |Interpretation ?|Antibiotic ? ? |Considerations ? |ng/mL ? | ?|recommendation | ? + +-------- --------+ + -----+| <0.1 ? | Bacterial ? ? ?| Strongly ? ? ?| ? | ?| infection very | discouraged ? | Overruling: ? | ?| unlikely ? ? ? | ? | ? Clinically unstable ? ? ? + +-------- --------+ + ? High risk for adverse ? ? | <0.25 ?| Bacterial ? ? ?| Discouraged ? | ? outcome ? | ?| infection ? ? ?| ? | ? SEE IMPORTANT NOTE ?| ?| unlikely ? ? ? | ? | ? + +-------- --------+ + -----+| >=0.25 ? ? ? | Bacterial ? ? ?| Encouraged ? ?| ? | ?| infection ? ? ?| ? | ? | ?| likely ? | ? | Consider treatment failure ?+ +------- ---------+ -+ if levels does not decrease | >0.5 ? | Bacterial ? ? ?| Strongly ? ? ?| appropriately ? | ?| infection very | encouraged ? ?| ? | ?| likely ? | ? | ? + +-------- --------+ + -----+ Discontinuation of antibiotics in high-acuity patients with suspected or confirmed sepsis in Adults >= 18 years of age. + +-------- --------+ + -----+|Procalcitonin |Interpretation ?|Antibiotic ? ? |Considerations ? |ng/mL ? | ?|recommendation | ? + +-------- --------+ + -----+| <0.25 ?| Bacterial ? ? ?| Strongly ? ? ?| ? | ?| infection very | discouraged ? | Overruling: ? | ?| unlikely ? ? ? | ? | ? Clinically unstable ? ? ? + +-------- --------+ + ? High risk for adverse ? ? | <0.5 or drop | Bacterial ? ? ?| Discouraged ? | ? outcome ? | >80% from ? ?| infection ? ? ?| ? | ? SEE IMPORTANT NOTE ?| highest PCT ?| unlikely ? ? ? | ? | ? | level ?| ?| ? | ? + +-------- --------+ + -----+| >=0.5 ?| Bacterial ? ? ?| Encouraged ? ?| ? | ?| infection ? ? ?| ? | ? | ?| likely ? | ? | Consider treatment failure ?+ +------- ---------+ -+ if levels does not decrease | >1.0 ? | Bacterial ? ? ?| Strongly ? ? ?| appropriately ? | ?| infection very | encouraged ? ?| ? | ?| likely ? | ? | ? + +-------- --------+ + -----+ Percentage of drop of Procalcitonin calculation for Discontinuation of antibiotics in high-acuity patients with suspected or confirmed sepsis in Adults >= 18 years of age. ? Procalcitonin highest{}-Procalcitonin current{}Delta Procalcitonin = x100% ? Procalcitonin current {} IMPORTANT NOTE: Procalcitonin may be elevated without bacterial infection by physiologic stress related to trauma, sen, chronic dialysis, metastatic cancer, surgery in the past seven days, malaria, some fungal infections, and some forms of vasculitis. The interpretation algorithm may not apply to patients with immunosuppression (equivalent of >10 mg of prednisone daily), HIV with CD4 cell count < 350 cells/mm3, active malignancy on systemic chemotherapy, solid organ transplant or hematopoietic stem cell transplantation, or hospital acquired pneumonia. Additionally, some clinical trials of procalcitonin have excluded patients with shock requiring vasopressor use, acute respiratory failure requiring mechanical ventilation, or those with known lung abscess/empyema. For further information please refer to:[email or web address] Lab Interpretation Abnormal (test code = 34723-0) [facility] with Klozoxxqfomx5913-53-38 21:32:00 Test Item Value Reference Range Interpretation Comments WBC (test code = See_Comment L [Automated 6690-2) message] The sy stem which generated this result transmitted reference range : 4.20 - 10.70 10*3/?L. The reference range was not used to interpret this result as normal/abnormal . RBC (test code = See_Comment L [Automated 789-8) message] The sy stem which generated this result transmitted reference range : 4.26 - 5.52 10*6/?L. The reference range was not used to interpret this result as normal/abnormal . HGB (test code = 8.7 g/dL 12.2-16.4 L 718-7) HCT (test code = 29.3 % 38.4-49.3 L 4544-3) MCV (test code = 79.2 fL 81.7-95.6 L 787-2) MCH (test code = 23.5 pg 26.1-32.7 L 785-6) MCHC (test code = 29.7 g/dL 31.2-35 L 786-4) RDW-SD (test code = 43.8 fL 38.5-51.6 18853-3) RDW-CV (test code = 15.1 % 12.1-15.4 788-0) PLT (test code = See_Comment L [Automated 777-3) message] The sy stem which generated this result transmitted reference range : 150 - 328 10*3/ ?L. The reference r fernando was not used to interpret this result as normal/abnormal . MPV (test code = 8.4 fL 9.8-13 L 51126-0) NRBC/100 WBC (test See_Comment [Automat ed code = 6413270855) message] The system which generated this result transmitted reference range : 0.0 - 10.0 /100 WBCs. The refer ence range was not u sed to interpret th is result as normal/abnormal . NRBC x10^3 (test code <0.01 See_Comment [Auto mated = 1338446554) message] The s ystem which generated this result transmitted reference range : 10*3/?L. The reference range was not used to interpret this result as normal/abnormal . GRAN MAT (NEUT) % 67.3 % (test code = 770-8) IMM GRAN % (test code 0.40 % = 4617685459) LYMPH % (test code = 19.1 % 736-9) MONO % (test code = 9.6 % 5905-5) EOS % (test code = 3.2 % 713-8) BASO % (test code = 0.4 % 706-2) GRAN MAT x10^3(ANC) 1.69 10*3/uL 1.99-6.95 L (test code = 8752368244) IMM GRAN x10^3 (test <0.03 0-0.06 code = 8192753670) LYMPH x10^3 (test code 0.48 10*3/uL 1.09-3.23 L = 731-0) MONO x10^3 (test code 0.24 10*3/uL 0.36-1.02 L = 742-7) EOS x10^3 (test code = 0.08 10*3/uL 0.06-0.53 711-2) BASO x10^3 (test code <0.03 0.01-0.09 = 704-7) Lab Interpretation Abnormal (test code = 27625-0) [facility]EDIM[facility] [id number] 21:29:00 Test Item Value Reference Range Interpretation Comments ESR (test code = See_Comment H [Automated message] 6337200138) The system Cloud[employer] generated this result transmitted ref erence range: 0 - 10 m m/HR. The reference r fernando was not used to interpret this result as normal/abnor mal. Lab Interpretation (test Abnormal code = 97132-9) [facility] Metabolic Panel (NA, K, CL, CO2, GLUCOSE, BUN, CREATININE, CA)2020-06-21 20:58:00 Test Item Value Reference Range Interpretation Comments NA (test code = 140 mmol/L 135-145 9187277117) K (test code = 4.3 mmol/L 3.5-5 4541204890) CL (test code = 107 mmol/L 98-108 2920367561) CO2 TOTAL (test code = 23 mmol/L 23-31 5567536845) AGAP (test code = 2-16 2593750045) BUN (test code = 22 mg/dL 7-23 9037332037) GLUCOSE (test code = 107 mg/dL 70-110 2254254181) CREATININE (test code = 1.07 mg/dL 0.6-1.25 0064991481) CALCIUM (test code = 8.3 mg/dL 8.6-10.6 L 8125279624) eGFR Calculation mL/min/1.73m2 (Non-) (test code = 6713689387) eGFR Calculation mL/min/1.73m2 () (test code = 5197915677) HAVEN (test code = HAVEN) Association of Glomerular Filtration Rate (GFR) and Staging of Kidney Disease* + --+ --+ ------+| GFR (mL/min/1.73 m2) ?| With Kidney Damage ?| ?Without Kidney Damage+ --------+ --------+ +| ?>90 ?| ?Stage one ?| ? Normal ?+ ---+ ---+ -------+| ?60-89 ?| ?Stage two ?| ? Decreased GFR ? + --+ --+ ------+| ?30-59 ?| ?Stage three ?| ? Stage three ? + --+ --+ ------+| ?15-29 ?| ?Stage four ? | ? Stage four ?+ ---+ ---+ -------+| ?<15 (or dialysis) ? ?| ?Stage five ? | ? Stage five ?+ ---+ ---+ -------+ *Each stage assumes the associated GFR level has been in effect for at least three months. ?Stages 1 to 5, with or without kidney disease, indicate chronic kidney disease. Notes: Determination of stages one and two (with eGFR >59mL/min/1.73 m2) requires estimation of kidney damage for at least three months as defined by structural or functional abnormalities of the kidney, manifested by either:Pathological abnormalities or Markers of kidney damage (including abnormalities in the composition of the blood or urine or abnormalities in imaging tests). Lab Interpretation Abnormal (test code = 24297-0) [facility] (ALB, T.PRO, BILI T, BU/BC, ALT, AST, ALK PHOS)2020-06-21 20:58:00 Test Item Value Reference Range Interpretation Comments TOTAL BILI (test code = 6838807264) 0.5 mg/dL 0.1-1.1 BILI UNCON (test code = 4554263401) 0.3 mg/dL 0.1-1.1 BILI CONJ (test code = 2652274894) 0.0 mg/dL 0-0.3 T PROTEIN (test code = 6139422015) 7.0 g/dL 6.3-8.2 ALBUMIN (test code = 4404630108) 3.6 g/dL 3.5-5 ALK PHOS (test code = 6372264164) 89 U/L 34-122 ALTv (test code = 1742-6) 31 U/L 5-50 AST(SGOT) (test code = 0597420994) 35 U/L 13-40 Lab Interpretation (test code = Normal 01206-2) [facility] TempleCREATINE [id number] 20:58:00 Test Item Value Reference Range Interpretation Comments CK (test code = 6525397409) 67 U/L 33-194 Lab Interpretation (test code = Normal 67104-1) [facility]OVID-[facility] (ID NOW RAPID TESTING)2020-06-21 20:51:00 Test Item Value Reference Range Interpretation Comments SARS-CoV-2 Rapid ID NOW Positive Not Detected A (test code = 70130-2) HAVEN (test code = HAVEN) ID NOW COVID-19 Assay is an isothermal nucleic acid amplification test intended for the qualitative detection of nucleic acid from SARS-CoV-2 viral RNA in nasopharyngeal ([employer]) specimens. It is used under Emergency Use Authorization (EUA) by FDA. The limit of detection (LOD) of the assay is 125 Genome Equivalents/mL. A positive result is indicative of the presence of SARS-CoV-2 RNA. ?Clinical correlation with patient history and other diagnostic information is necessary to determine patient infection status. A negative (Not Detected) result does not preclude SARS-CoV-2 infection. In patients with clinical symptoms and other tests that are consistent with SARS-CoV-2 infection, negative results should be treated as presumptive negative and a new specimen should be tested with alternative PCR molecular test. Invalid: Please collect a new specimen for repeat patient testing if clinically indicated. Lab Interpretation Abnormal (test code = 64346-3) [facility] TempleLactic Acid Whole [id number] 20:37:00 Test Item Value Reference Range Interpretation Comments LACTIC ACID (test code = 1.54 mmol/L 0.3-2.6 8359955841) Lab Interpretation (test code = Normal 73503-7) [facility]
[2021-10-01] MEDS ORDERED: CEFEPIME 1 GM/VIAL ONE (14:09)
[2021-10-01] MEDS ORDERED: NA CHLORIDE 0.9% 100 ML IV ONE (14:09)
[2021-10-01 14:10] LABS: Absolute Lymphocytes (CBC) 1.2 K/uL (0.7-4.9); Hematocrit 42.4 % (39.6-49.0); Lymphocytes % 20.4 % (15.3-44.8); MPV 6.4 fL (7.6-11.3); RBC Red Blood Cell Count 5.16 M/uL (4.33-5.43)
[2021-10-01] MEDS ORDERED: VANCOMYCIN 1 GM/VIAL ONE (14:49)
[2021-10-01] MEDS ORDERED: NA CHLORIDE 0.9% 250 ML ONE (14:49)
[2021-10-01] MEDS ORDERED: FENTANYL CITR 100 MCG/2 ML ONE (15:23)
--- NOTE | 2021-10-01 15:44 | RAD REPORT ---
EXAM DESCRIPTION: US - Extrem Venous W Compress Jagura - 10/01/2021 3:30 pm CLINICAL HISTORY: SWELLING Bilateral leg edema and swelling. COMPARISON: EXT VENOUS W COMPRESSION JAGUAR dated 01/18/2014 TECHNIQUE: Real-time sonographic interrogation of the left and right lower extremity deep venous sys tems was performed. FINDINGS: Normal compressibility, flow augmentation, phasic flow and spontaneous flow is identified in both the left and right lower extremity deep venous systems. IMPRESSION: No sonographic evidence of left or right lower extremity deep venous thrombosis.
--- NOTE | 2021-10-01 15:45 | RAD REPORT ---
EXAM DESCRIPTION: US - Lower Extremity Arterial Bilat - 10/01/2021 3:30 pm CLINICAL HISTORY: worsening wounds Nonhealing wound, cellulitis COMPARISON: LOW EXT ARTERIAL BILATERAL dated 02/18/2011 TECHNIQUE: Bilateral lower extremity arterial Doppler examination was performed. . FINDINGS: Triphasic and biphasic waveforms are seen throughout both lower extremity arterial systems to the lev el of the dorsalis pedis arteries. No significant stenosis or occlusion seen. IMPRESSION: No evidence of significant peripheral vascular disease.
--- NOTE | 2021-10-01 15:55 | EDPHYS ---
Physician Documentation [facility] Name: Michael Aguiar Age: 71 yrs Sex: Male : 1950 Arrival Date: 10/01/2021 Time: 13:08 Bed 19 Private MD: ED Physician Jeison Posadas HPI: 10/01 13:35 This 71 yrs old Male presents to ER via EMS with complaints of Wound Check. rn 13:35 Patient presents to ED for recheck of: cellulitis. The affected area is on the right rn leg and left leg. Progress: The patient reports worsening. The patient has experienced similar episodes in the past. The patient has been recently seen by a physician:. Pt getting home health care for lower extremity wounds, . Historical: - Allergies: 13:26 Codeine; ap3 14:01 SILVER; ap3 - Home Meds: 13:26 amiodarone 200 mg Oral tab 1 tab once daily [Active]; ascorbic acid (vitamin C) 500 mg ap3 cap daily [Active]; atorvastatin 40 mg oral tab 1 tab [Active]; clonidine HCl 0.1 mg Oral tab 1 tab [Active]; gabapentin 600 mg oral Tb24 four times a day [Active]; liothyronine 25 mcg oral tab 1 tab once daily [Active]; Mag Citrate Oral [Active]; melatonin 10 mg Oral tab [Active]; methocarbamol 750 mg Oral tab 1 tab 3 times per day [Active]; midodrine 2.5 mg oral tab 3 tabs every 8 hours [Active]; Miralax 17 gram Oral pwpk [Active]; acetaminophen 325 mg Oral cap 2 tab [Active]; Xarelto 20 mg oral tab 1 tab once daily [Active]; - Immunization history:: Client reports receiving the 2nd dose of the Covid vaccine, Flu vaccine is up to date. - Social history:: Smoking status: Patient denies any tobacco usage or history of. - Family history:: not pertinent. ROS: 13:37 Constitutional: Negative for fever, chills, and weight loss, Eyes: Negative for injury, rn pain, redness, and discharge, Neck: Negative for injury, pain, and swelling, Cardiovascular: Negative for chest pain, palpitations, and edema, Respiratory: Negative for shortness of breath, cough, wheezing, and pleuritic chest pain, Abdomen/GI: Negative for abdominal pain, nausea, vomiting, diarrhea, and constipation, Back: Negative for injury and pain, MS/Extremity: Negative for injury and deformity, Skin: + worsening lower extremity wounds and drainage Neuro: Negative for headache, weakness, numbness, tingling, and seizure. Exam: 13:37 Constitutional: This is a well developed, well nourished patient who is awake, alert, rn and in no acute distress. Head/Face: Normocephalic, atraumatic. Eyes: Periorbital areas with no swelling, redness, or edema. Cardiovascular: Regular rate and rhythm. No pulse deficits. Respiratory: No increased work of breathing, no retractions or nasal flaring. Abdomen/GI: Soft, non-tender Skin: Warm, + small sacral decubitus ulcer. MS/ Extremity: Unable to palpate either DP pulse. + poorly healing wounds bilateral lower extremities with erythema and prominent desquamation of LLE circumferentially. + foul smell. No purulent dranage. Neuro: Awake and alert, GCS 15, oriented to person, place, time, and situation. Cranial nerves II-XII grossly intact. Motor strength 5/5 in all extremities. Sensory grossly intact. Cerebellar exam normal. Normal gait. Vital Signs: 13:21 BP 118 / 87; Temp 97.9(TE); Weight 104.33 kg; Height 5 ft. 10 in. (177.80 cm); ap3 13:56 Pulse 82; Resp 18; Pulse Ox 99% on R/A; ap3 14:06 BP 110 / 89; Pulse 84; Pulse Ox 99% on R/A; ap3 14:54 BP 125 / 82; Pulse 82; Pulse Ox 98% on R/A; ap3 15:29 BP 122 / 83; Pulse 84; Pulse Ox 99% on R/A; ap3 16:36 BP 135 / 81; Pulse 95; Pulse Ox 98% on R/A; ap3 17:26 BP 122 / 82; Pulse 82; Pulse Ox 97% on R/A; ap3 17:54 BP 124 / 85; Pulse 78; Pulse Ox 99% on R/A; ap3 20:28 BP 124 / 78; Pulse 66; Resp 18; Pulse Ox 99% on R/A; mark 13:21 Body Mass Index 33.00 (104.33 kg, 177.80 cm) ap3 MDM: 13:09 Patient medically screened. rn 15:51 Differential diagnosis: cellulitis. Data reviewed: vital signs, nurses notes, lab test rn result(s), radiologic studies, doppler, ultrasound, and as a result, I will admit patient. Counseling: I had a detailed discussion with the patient and/or guardian regarding: the historical points, exam findings, and any diagnostic results supporting the discharge/admit diagnosis, lab results, radiology results, the need for further work-up and treatment in the hospital. Response to treatment: the patient's symptoms have mildly improved after treatment, and as a result, I will admit patient. Admission orders: after a detailed discussion of the patient's condition and case, the admit orders are written by me. ED course: Pt admitted to Dr. Loving for cellulitis.. 10/01 13:20 Order name: Blood Culture Adult (2) rn 10/01 13:20 Order name: CBC with Diff; Complete Time: 14:32 rn 10/01 13:20 Order name: Lactate; Complete Time: 14:49 rn 10/01 13:20 Order name: Protime (+inr) rn 10/01 13:20 Order name: Ptt, Activated rn 10/01 13:21 Order name: Wound Culture rn 10/01 13:23 Order name: SARS-COV-2 RT PCR (Document "Date of Onset" if Symptomatic); Complete Time: rn 14:49 10/01 13:34 Order name: Basic Metabolic Panel rn 10/01 13:35 Order name: Procalcitonin rn 10/01 13:37 Order name: Wound Culture ap3 10/01 16:28 Order name: Basic Metabolic Panel EDMS 10/01 16:28 Order name: Basic Metabolic Panel EDMS 10/01 16:28 Order name: CBC with Automated Diff EDMS 10/01 16:28 Order name: CBC with Automated Diff EDMS 10/01 13:20 Order name: Accucheck; Complete Time: 15:29 rn 10/01 13:20 Order name: Cardiac monitoring; Complete Time: 13:37 rn 10/01 13:20 Order name: EKG - Nurse/Tech; Complete Time: 15:47 rn 10/01 13:20 Order name: IV Saline Lock - Large Bore; Complete Time: 13:56 rn 10/01 13:20 Order name: Labs collected and sent; Complete Time: 13:56 rn 10/01 13:20 Order name: O2 Per Protocol; Complete Time: 13:37 rn 10/01 13:20 Order name: O2 Sat Monitoring; Complete Time: 13:37 rn 10/01 13:20 Order name: Extrem Venous W Compression Jaguar US; Complete Time: 15:49 rn 10/01 13:20 Order name: Lower Extremity Arterial Bilat US; Complete Time: 15:49 rn 10/01 16:28 Order name: Heart Healthy EDMS Administered Medications: 14:24 Drug: Cefepime 1 grams Route: IVPB; Rate: 200 ml/hr; Infused Over: 30 mins; Site: right ap3 antecubital; 15:00 Follow up: IV Status: Completed infusion; IV Intake: 100ml ap3 15:28 Drug: vancoMYCIN 1 grams Route: IVPB; Infused Over: 2 hrs; Site: right antecubital; ap3 15:28 Drug: fentaNYL (PF) 50 mcg Route: IVP; Site: right antecubital; ap3 15:47 Follow up: Response: No adverse reaction; Pain is decreased ap3 Disposition Summary: 10/01/21 15:54 Hospitalization Ordered Hospitalization Status: Inpatient Admission rn Provider: Hayden Loving rn Condition: Stable rn Problem: new rn Symptoms: have improved rn Bed/Room Type: Standard rn Location: Telemetry/MedSurg (Inpatient)(10/01/21 20:17) mw Room Assignment: [facility](10/01/21 20:17) mw Diagnosis - Cellulitis of left lower limb rn - Cellulitis of right lower limb rn Forms: - Medication Reconciliation Form rn - SBAR form rn Signatures: [facility]patcher [facility] EDVashti Loco RN RN Jeison Wilkinson MD MD rn Calderon, Audri RN RN aa5 Sally Palmer RN RN ap3 Corrections: (The following items were deleted from the chart) 18:38 15:54 Telemetry/MedSurg (Inpatient) rn aa5 18:38 15:54 rn aa5 20:17 18:38 [facility] ER HOLD aa5 mw 20:17 18:38 ERHOLD- aa5 mw
--- NOTE | 2021-10-01 15:55 | ER ---
Nurse's Notes [facility] Name: Michael Aguiar Age: 71 yrs Sex: Male : 1950 Arrival Date: 10/01/2021 Time: 13:08 Bed 19 Private MD: Diagnosis: Cellulitis of left lower limb;Cellulitis of right lower limb Presentation: 10/01 13:21 Chief complaint: EMS states: They were called to the patients home by the home health ap3 nurse for possible infected wounds. Patient has wounds to PALLAVI lower extremities and sacral area. Coronavirus screen: At this time, the client does not indicate any symptoms associated with coronavirus-19. Ebola Screen: No symptoms or risks identified at this time. Risk Assessment: Do you want to hurt yourself or someone else? Patient reports no desire to harm self or others. Onset of symptoms was September 27, 2020. Transition of care: patient was not received from another setting of care. 13:21 Method Of Arrival: EMS: [place] [id number] 13:21 Acuity: MELECIO 3 ap3 13:38 Initial Sepsis Screen: Does the patient have a suspected source of infection?. ap3 13:57 Initial Sepsis Screen: Does the patient meet any 2 criteria? No. Patient's initial ap3 sepsis screen is negative. Does the patient have a suspected source of infection? Yes: Skin breakdown/wound. Triage Assessment: 13:34 General: Appears uncomfortable, Behavior is calm, cooperative. Pain: Complains of pain ap3 in gluteal cleft, right leg and left leg. Neuro: Level of Consciousness is awake, alert, obeys commands, Oriented to person, place, time, situation, Gait is patient reports not being ambulatory since January of 2021. Cardiovascular: Patient's skin is warm and dry. Respiratory: Airway is patent Respiratory effort is even, unlabored, Respiratory pattern is regular, symmetrical. : Mosher in place patient arrived with mosher catheter in place. Patient has clear yellow urine draining to gravity at this time. Derm: Wound noted gluteal cleft, right leg and left leg. Historical: - Allergies: 13:26 Codeine; ap3 14:01 SILVER; ap3 - Home Meds: 13:26 amiodarone 200 mg Oral tab 1 tab once daily [Active]; ascorbic acid (vitamin C) 500 mg ap3 cap daily [Active]; atorvastatin 40 mg oral tab 1 tab [Active]; clonidine HCl 0.1 mg Oral tab 1 tab [Active]; gabapentin 600 mg oral Tb24 four times a day [Active]; liothyronine 25 mcg oral tab 1 tab once daily [Active]; Mag Citrate Oral [Active]; melatonin 10 mg Oral tab [Active]; methocarbamol 750 mg Oral tab 1 tab 3 times per day [Active]; midodrine 2.5 mg oral tab 3 tabs every 8 hours [Active]; Miralax 17 gram Oral pwpk [Active]; acetaminophen 325 mg Oral cap 2 tab [Active]; Xarelto 20 mg oral tab 1 tab once daily [Active]; - Immunization history:: Client reports receiving the 2nd dose of the Covid vaccine, Flu vaccine is up to date. - Social history:: Smoking status: Patient denies any tobacco usage or history of. - Family history:: not pertinent. Screenin:37 Abuse screen: Denies threats or abuse. Nutritional screening: No deficits noted. ap3 Tuberculosis screening: No symptoms or risk factors identified. Fall Risk No fall in past 12 months (0 pts). Secondary diagnosis (15 points) impaired mobility, IV access (20 points). Ambulatory Aid- None/Bed Rest/Nurse Assist (0 pts). Gait- Normal/Bed Rest/Wheelchair (0 pts) Mental Status- Oriented to own ability (0 pts). Total Damon Fall Scale indicates Low Risk Score (25-44 pts). Fall prevention measures have been instituted. Side Rails Up X 2 Placed close to Nursing Station Frequent Obs/Assesments occuring As available Patient and Family Educated on Fall Prevention Program and strategies. Assessment: 14:06 Reassessment: Patient and/or family updated on plan of care and expected duration. Pain ap3 level reassessed. Patient is alert, oriented x 3, equal unlabored respirations, skin warm/dry/pink. 14:13 Reassessment: notified ultrasound that patient is now available for ultrasound testing. ap3 14:31 Reassessment: Ultrasound at the bedside. ap3 14:54 General: ultrasound remains at bedside. ap3 15:15 Reassessment: provider notified of patient's pain level. new orders received. ap3 15:29 General: ultrasound left bedside. ap3 17:54 General: patient placed in hospital bed with waffle topper.. ap3 20:30 Reassessment: The pt has been assigned 406, upstairs. Registration was called. mark 20:41 Reassessment: I attempted to call report to the 4th floor, but they will have to call mark me back, as the nurse can't take report, at this time. Vital Signs: 13:21 BP 118 / 87; Temp 97.9(TE); Weight 104.33 kg; Height 5 ft. 10 in. (177.80 cm); ap3 13:56 Pulse 82; Resp 18; Pulse Ox 99% on R/A; ap3 14:06 BP 110 / 89; Pulse 84; Pulse Ox 99% on R/A; ap3 14:54 BP 125 / 82; Pulse 82; Pulse Ox 98% on R/A; ap3 15:29 BP 122 / 83; Pulse 84; Pulse Ox 99% on R/A; ap3 16:36 BP 135 / 81; Pulse 95; Pulse Ox 98% on R/A; ap3 17:26 BP 122 / 82; Pulse 82; Pulse Ox 97% on R/A; ap3 17:54 BP 124 / 85; Pulse 78; Pulse Ox 99% on R/A; ap3 20:28 BP 124 / 78; Pulse 66; Resp 18; Pulse Ox 99% on R/A; mark 13:21 Body Mass Index 33.00 (104.33 kg, 177.80 cm) ap3 ED Course: 13:08 Patient arrived in ED. aa5 13:09 Jeison Posadas MD is Attending Physician. rn 13:21 Sally Palmer RN is Primary Nurse. ap3 13:26 Triage completed. ap3 13:38 Arm band placed on right wrist. ap3 13:38 Patient has correct armband on for positive identification. Bed in low position. Call ap3 light in reach. Side rails up X2. Adult w/ patient. silver recovery operator on. Pulse ox on. NIBP on. Door closed. Noise minimized. 13:48 Inserted saline lock: 20 gauge in right antecubital area, using aseptic technique. ap3 Blood collected. 15:32 Extrem Venous W Compression Pallavi US In Process Unspecified. EDMS 15:32 Lower Extremity Arterial Bilat US In Process Unspecified. EDMS 15:53 Hayden Loving MD is Hospitalizing Provider. rn 16:37 Dressings: ABD pad X 3; right leg and left leg Kerlix X 2; right leg and left leg 4X4s ap3 X 4; right leg and left leg wet to dry dressing applied to pallavi lower extremities. patient tolerated well. Administered Medications: 14:24 Drug: Cefepime 1 grams Route: IVPB; Rate: 200 ml/hr; Infused Over: 30 mins; Site: right ap3 antecubital; 15:00 Follow up: IV Status: Completed infusion; IV Intake: 100ml ap3 15:28 Drug: vancoMYCIN 1 grams Route: IVPB; Infused Over: 2 hrs; Site: right antecubital; ap3 15:28 Drug: fentaNYL (PF) 50 mcg Route: IVP; Site: right antecubital; ap3 15:47 Follow up: Response: No adverse reaction; Pain is decreased ap3 Intake: 15:00 IV: 100ml; Total: 100ml. ap3 Outcome: 15:54 Decision to Hospitalize by Provider. rn 21:34 Patient left the ED. mark Signatures: Dispatcher [employer] EDMS Jeison Posadas MD MD rn Calderon, Audri, RN RN aa5 Sally Palmer RN RN ap3 Bailey Huertas RN RN makr Corrections: (The following items were deleted from the chart) 15:31 15:25 Reassessment: provider notified of patient's pain level. new orders received. ap3 ap3
[2021-10-01 16:17] LABS: Protime INR 1.37
[2021-10-01] MEDS ORDERED: ONDANSETRON 4 MG/2 ML VIAL IV PRN (16:18)
[2021-10-01] MEDS ORDERED: ACETAMINOPHEN 325 MG TABLET PO PRN (16:33)
--- NOTE | 2021-10-01 16:35 | P.HP ---
Certification for Inpatient With expected LOS: >2 Midnights Practitioner: I am a practitioner with admitting privileges, knowledge of patient current condition, hospital course, and medical plan of care. Services: Services provided to patient in accordance with Admission requirements found in Title 42 Section 412.3 of the Code of Federal Regulations Patient History Date of Service: 10/01/21 Reason for admission: Cellulitis of the legs. History of Present Illness: 71 y o male patient with medical history significant for venous stasis with bilateral ulcers which has been under the care of infectious disease specialist was evaluated in the ER after patient was asked to be seen in the hospital for episode of worsened infection lower extremity. He had episodes of increased pain and discharge from the leg. He denied any overt episode of fever, chills, night sweats. He denied recent trauma to the leg. He was asked to be admitted for inpatient antibiotic therapy. Allergies codeine Adverse Reaction (Verified 10/26/13 04:13) diarrhea Home Medications: Amitriptyline [Elavil*] 100 mg PO BEDTIME 10/26/13 Hydrocodone Bit/Acetaminophen [Hydrocodon-Acetaminophn 10-325] 1 each PO Q4HP PRN 10/26/13 Pregabalin [Lyrica*] 75 mg PO BID 10/26/13 Spironolactone [Aldactone*] 25 mg PO DAILY #30 tab 10/28/13 paricalcitoL [Zemplar*] 1 mcg PO M,W,F@0900 #12 cap 10/29/13 - Past Medical/Surgical History Diabetic: No -: HTN -: Chronic Ulcers on lower left legs -: Lymphedema -: Osteoarthritis -: Obstructive Sleep Apnea -: COPD -: Morbid Obesity -: Neuropathy -: Chronic pain -: L Knee replacement -: Hernia repair -: Compound fx Left Leg Psychosocial/ Personal History: Lives by himself. - Social History CD- Drugs: No Caffeine use: Yes Review of Systems General: Unremarkable Eyes: Unremarkable ENT: Unremarkable Respiratory: Unremarkable Cardiovascular: Unremarkable Gastrointestinal: Unremarkable Genitourinary: Unremarkable Musculoskeletal: Leg Pain Integumentary: Rash, Lesions Neurological: Unremarkable Physical Examination - Physical Exam General: Alert, Oriented x3 HEENT: Atraumatic, Normocephalic Neck: Supple Respiratory: Normal air movement Cardiovascular: Regular rate/rhythm, Normal S1 S2 Gastrointestinal: Soft and benign Integumentary: Skin breakdown, Skin lesion, Erythema Neurological: Normal strength at 5/5 x4 extr - Studies Laboratory Data (last 24 hrs) 10/01/21 13:47: PT 16.1 H, INR 1.37, APTT 33.6 10/01/21 13:47: WBC 5.8, Hgb 13.6, Hct 42.4, Plt Count 208 Assessment and Plan - Plan Cellulitis: Patient does have significant lesions in the lower extremity worse on the left. Empiric antibiotic with vancomycin and cefepime started. Wound care consult) ID following for adjustment of antibiotic therapy. Venous stasis: Management as an outpatient. Prophylaxis: Lovenox for DVT. Code status: Full code. Discharge Plan: Home - Advance Directives Does patient have a Living Will: No Does patient have a Durable POA for Healthcare: No - Code Status/Comfort Care Code Status: Full Code
[2021-10-01 16:39] LABS: BUN Blood Urea Nitrogen 12 mg/dL (7-18); Bicarbonate 27 mmol/L (21-32); Glucose Level 87 mg/dL (74-106); Potassium 3.9 mmol/L (3.5-5.1); Sodium Level 139 mmol/L (136-145)
[2021-10-01 19:02] VITALS: BMI 33.0
[2021-10-01] MEDS: ENOXAPARIN 40 MG/0.4 ML SQ SCH (22:26)
[2021-10-01] MEDS: HYDROCODONE/APAP 10/325 TAB PO PRN (22:27)
[2021-10-01] MEDS: CEFEPIME 1 GM in NA CHLORIDE 0.9% 100 ML IV SCH (22:27)
[2021-10-02] MEDS ORDERED: VANCOMYCIN 2 GM in NA CHLORIDE 0.9% 500 ML IVPB SCH ×2 (03:00→05:00)
[2021-10-02] MEDS ORDERED: VANCOMYCIN 1 GM/VIAL ONE (03:31)
[2021-10-02] MEDS ORDERED: NA CHLORIDE 0.9% 0 ML ONE (03:36)
[2021-10-02 03:58] LABS: Absolute Lymphocytes (CBC) 0.8 K/uL (0.7-4.9); Hematocrit 38.3 % (39.6-49.0); Lymphocytes % 16.1 % (15.3-44.8); MPV 6.5 fL (7.6-11.3); RBC Red Blood Cell Count 4.69 M/uL (4.33-5.43)
[2021-10-02 04:03] LABS: BUN Blood Urea Nitrogen 13 mg/dL (7-18); Bicarbonate 27 mmol/L (21-32); Glucose Level 93 mg/dL (74-106); Potassium 3.9 mmol/L (3.5-5.1); Sodium Level 138 mmol/L (136-145)
[2021-10-02] MEDS: HYDROCODONE/APAP 10/325 TAB PO PRN ×3 (06:58→22:23)
[2021-10-02 08:05] LABS: Urine Appearance TURBID (Clear); Urine Bilirubin NEGATIVE (Negative); Urine Blood 3+ (Negative); Urine Color YELLOW (Yellow); Urine Glucose NEGATIVE (Negative); Urine Protein 1+ (Negative); Urine Specific Gravity 1.015 (1.005-1.030); Urine Urobilinogen 0.2 mg/dL (0.2-1.0)
[2021-10-02 08:08] LABS: Urine Microscopic Reflex ORDER UMIC
[2021-10-02 08:22] LABS: Urine Bacteria >50 /HPF (NONE SEEN); Urine RBC >50 /HPF (NONE SEEN)
[2021-10-02] MEDS: CEFEPIME 1 GM in NA CHLORIDE 0.9% 100 ML IV SCH ×2 (09:38→21:10)
[2021-10-02] MEDS: ENOXAPARIN 40 MG/0.4 ML SQ SCH (09:40)
--- NOTE | 2021-10-02 14:22 | P.PN ---
Subjective Date of Service: 10/03/21 Chief Complaint: Cellulitis of the legs. Subjective: No new changes, Improving Physical Examination - Vital Signs Temperature: 98.1 F Blood Pressure: 104/62 Pulse: 80 Respirations: 20 Pulse Ox (%): 96 - Physical Exam General: Alert, Oriented x3 HEENT: Atraumatic, Normocephalic Neck: Supple Respiratory: Normal air movement Cardiovascular: Regular rate/rhythm, Normal S1 S2 Musculoskeletal: No swelling Neurological: Normal speech, Normal strength at 5/5 x4 extr - Studies Laboratory Data (last 24 hrs) 10/01/21 13:47: Sodium 139, Potassium 3.9, BUN 12, Creatinine 0.59, Glucose 87 10/01/21 13:47: PT 16.1 H, INR 1.37, APTT 33.6 10/01/21 13:47: WBC 5.8, Hgb 13.6, Hct 42.4, Plt Count 208 Microbiology Data (last 24 hrs): 10/01/21 13:53 Wound - L Leg (Lower) Gram Stain - Final 10/01/21 13:51 Wound - Right Lower Leg Gram Stain - Final Assessment And Plan - Plan Cellulitis: Patient does have significant lesions in the lower extremity worse on the left. wounds growing MRSA and GNRs. Empiric antibiotic with vancomycin and cefepime to be continued pending culture report finalization.. Wound care consult. ID following for adjustment of antibiotic therapy. skin biopsy planned for outpt for now. Venous stasis: Management as outpatient. Prophylaxis: Lovenox for DVT. Code status: Full code.
[2021-10-02] MEDS: VANCOMYCIN 2 GM in NA CHLORIDE 0.9% 500 ML IVPB SCH (14:54)
[2021-10-02] MEDS: AMIODARONE HCL 200 MG TAB PO SCH (15:02)
[2021-10-02] MEDS: ASCORBIC ACID 500 MG TABLET PO SCH (15:02)
[2021-10-02] MEDS: POLYETHYL GLY 3350 17 GM/DOSE PO SCH (15:03)
[2021-10-02] MEDS ORDERED: HOME MED 1 EA UNK (Melatonin [Melatonin] 10 MG Capsule) PO SCH (21:00)
[2021-10-02] MEDS ORDERED: HOME MED 1 EA UNK (Gabapentin [Neurontin] 600 MG Tablet) PO SCH (21:00)
[2021-10-02] MEDS: GABAPENTIN 100 MG CAP PO SCH (21:09)
[2021-10-02] MEDS: MELATONIN 5 MG TABLET PO SCH (21:10)
[2021-10-02] MEDS: ATORVASTATIN 40 MG TAB PO SCH (21:10)
[2021-10-02] MEDS: methocarbamoL 750 MG TAB PO SCH (21:10)
[2021-10-03] MEDS: VANCOMYCIN 2 GM in NA CHLORIDE 0.9% 500 ML IVPB SCH ×2 (02:55→14:59)
[2021-10-03] MEDS: LIOTHYRONINE SOD 25 MCG TAB PO SCH (05:44)
[2021-10-03] MEDS: HYDROCODONE/APAP 10/325 TAB PO PRN ×4 (06:23→21:54)
[2021-10-03] MEDS: CEFEPIME 1 GM in NA CHLORIDE 0.9% 100 ML IV SCH ×2 (09:05→20:27)
[2021-10-03] MEDS: GABAPENTIN 100 MG CAP PO SCH ×3 (09:06→20:28)
[2021-10-03] MEDS: AMIODARONE HCL 200 MG TAB PO SCH (09:06)
[2021-10-03] MEDS: POLYETHYL GLY 3350 17 GM/DOSE PO SCH (09:06)
[2021-10-03] MEDS: ASCORBIC ACID 500 MG TABLET PO SCH (09:07)
[2021-10-03] MEDS: ACETAMINOPHEN 325 MG TABLET PO SCH (09:07)
[2021-10-03] MEDS: methocarbamoL 750 MG TAB PO SCH ×3 (09:07→20:28)
--- NOTE | 2021-10-03 11:04 | EKG ---
Test Date: 2021-10-01 Test Time: 15:41:11 Habilitation Specialist: ALP MEASUREMENT RESULTS: Intervals: Rate: 100 ME: QRSD: 100 QT: 416 QTc: 536 Jay: P: ME: QRS: 73 T: 80 INTERPRETIVE STATEMENTS: Atrial fibrillation Low voltage QRS Incomplete right bundle branch block Nonspecific T wave abnormality, probably digitalis effect Prolonged QT Abnormal ECG Compared to ECG 10/26/2013 00:26:49 Low QRS voltage now present T-wave abnormality now present Prolonged QT interval now present Sinus rhythm no longer present Ventricular premature complex(es) no longer present ST (T wave) deviation no longer present Electronically Signed On 10-03-21 10:58:06 CDT by Jian Ortiz
--- NOTE | 2021-10-03 11:30 | P.CNS ---
Date of Consult: 10/03/21 Chief Complaint: Cellulitis of the legs. History of Present Illness: The patient is a 71-year-old male with a past medical history of proximal atrial fibrillation, essential hypertension, morbid obesity, recurrent urinary tract infections with chronic Higgins catheter, chronic bilateral lower extremity venous ulceration wounds, and chronic sacral wound who is well-known to our practice. Patient sees Dr. Herrera and his outpatient wound care center on . Patient's home health nurse recently noticed more drainage/foul odor to the patient's wounds, and patient stated that his wounds have become more tender as such he presented to the ED. Patient was hemodynamically stable and afebrile upon admission, superficial wound cultures growing methicillin-resistant Staphylococcus aureus and gram-negative rods. Patient was empirically placed on IV vancomycin and cefepime. We will continue local wound care. Patient currently denies nausea/vomiting/diarrhea/shortness breath/chest pain. Allergies codeine Adverse Reaction (Verified 10/26/13 04:13) diarrhea Home Medications: Hydrocodone Bit/Acetaminophen [Hydrocodon-Acetaminophn 10-325] 1 each PO Q4HP PRN 10/26/13 Acetaminophen [Non-Aspirin] 325 mg PO DAILY 10/02/21 Amiodarone HCl [Cordarone Tab] 200 mg PO DAILY 10/02/21 Ascorbic Acid [C-500] 500 mg PO DAILY 10/02/21 Atorvastatin Calcium [Lipitor] 40 mg PO BEDTIME 10/02/21 Clonidine HCl [Clonidine HCl ER] 0.1 mg PO DAILY 10/02/21 Gabapentin [Neurontin] 600 mg PO QID 10/02/21 Liothyronine [Cytomel] 25 mcg PO DAILY 10/02/21 Melatonin 10 mg PO BEDTIME 10/02/21 Midodrine HCl 3 tab PO Q8H 10/02/21 Polyethylene Glycol 3350 [Miralax] 17 gm PO DAILY 10/02/21 Rivaroxaban [Xarelto] 20 mg PO DAILY 10/02/21 methocarbamoL [Methocarbamol] 750 mg PO TID 10/02/21 - Past Medical/Surgical History Diabetic: No -: HTN -: Chronic Ulcers on lower left legs -: Lymphedema -: Osteoarthritis -: Obstructive Sleep Apnea -: COPD -: Morbid Obesity -: Neuropathy -: Chronic pain -: L Knee replacement -: Hernia repair -: Compound fx Left Leg Psychosocial/ Personal History: Lives by himself. - Family History Father Medical History: Heart disease, Hypertension, Stroke Mother Medical History: Heart disease, Hypertension Sister Medical History: Heart disease, Hypertension Brother Medical History: Stroke - Social History Smoking Status: Never smoker Alcohol use: No CD- Drugs: No Caffeine use: Yes Place of Residence: Home Review of Systems 10-point ROS is otherwise unremarkable Physical Examination Temp Pulse Resp BP Pulse Ox 97.8 F 82 17 100/66 97 10/03/21 08:00 10/03/21 08:00 10/03/21 10:07 10/03/21 08:00 10/03/21 10:07 General: Alert, In no apparent distress, Oriented x3 HEENT: Atraumatic, Normocephalic Neck: Supple, JVD not distended Respiratory: Clear to auscultation bilaterally, Normal air movement Cardiovascular: Normal pulses, Regular rate/rhythm Gastrointestinal: Normal bowel sounds, Soft and benign Musculoskeletal: No clubbing, No contractures Integumentary: Other (Chronic bilateral lower extremity venous stasis ulcerations: Left lower extremity venous stasis ulceration wound is circumferential, has foul odor, with purulent green-tinged drainage. Base of wound is beefy red.) Conclusions/Impression: Antibiotics: Vancomycin: 13current Cefepime: 4/urrent Assessment/plan Infected chronic bilateral lower extremity venous ulcerations Superficial wound cultures growing MRSA and GNR. Recommend continuing vancomycin and cefepime at this time. Skin biopsy pending to rule out SCC Venous Doppler negative for DVT Arterial Doppler showed no significant PAD disease Patient has tried several different wound care modalities, all of which have failed for the patient. As such patient only wants the wound to be cleaned with saline, wrapped with ABD pads, and then wrapped with Kerlix. Dressing is to be changed daily. Educated patient importance of keeping his legs elevated. Sacral stage IV ulcer healing Wound care includes: Clean with saline, pack with normal gauze, and cover with sacral foam Avoid direct pressure over area, advised patient to reposition himself in bed every 2 hours during waking hours UTI Urinalysis grossly positive, urine culture pending Patient was chronic Higgins catheter, unknown when was last exchanged. Recommend urology consultation Recommend CT abdomen pelvis to rule out stone/obstructive uropathy Medical management per primary team Plan of care discussed with Dr. Campos Thank you for consultation
--- NOTE | 2021-10-03 14:21 | RAD REPORT ---
EXAM DESCRIPTION: RAD - Tib Fib Right - 10/03/2021 2:08 pm CLINICAL HISTORY: XRAY LEG TO R/U osteo COMPARISON: No comparisons FINDINGS: No acute fracture. No malalignment. Degenerative changes are present at the ankle and knee . Osteopenia. Peripheral vascular calcifications. IMPRESSION: No acute osseous abnormality involving the tibia or fibula. No radiographic evidence of osteomyelitis. MRI is more sensitive in the acute phase.
--- NOTE | 2021-10-03 14:23 | RAD REPORT ---
EXAM DESCRIPTION: RAD - Tib Fib Left - 10/03/2021 2:08 pm CLINICAL HISTORY: XRAY OF LEG TO R/U osteo COMPARISON: MRI TIB FIB LEFT W WO CON dated 02/19/2011 FINDINGS: No acute fracture. No malalignment. Calcaneal spurring. Peripheral vascular calcifications . Degenerative changes at the talonavicular joint. Left knee arthroplasty noted. Osteopenia. Nonspeci fic cortical thickening along the ventral aspect of the tibia which may be secondary to peripheral va scular disease/ vascular insufficiency. No destructive osseous lesions to suggest underlying osteomye litis . IMPRESSION: No acute osseous abnormality involving the tibia or fibula. No radiographic evidence of osteomyelitis. Note that MRI is more sensitive in the acute phase.
[2021-10-03] MEDS: RIVAROXABAN 20 MG TABLET PO SCH (16:17)
--- NOTE | 2021-10-03 17:11 | P.PN ---
Subjective Date of Service: 10/03/21 Chief Complaint: Cellulitis of the legs. Subjective: No new changes Physical Examination - Vital Signs Temperature: 98.1 F Blood Pressure: 104/62 Pulse: 80 Respirations: 20 Pulse Ox (%): 96 - Physical Exam General: Alert, Oriented x3 HEENT: Atraumatic, Normocephalic Neck: Supple Respiratory: Normal air movement Cardiovascular: Regular rate/rhythm, Normal S1 S2 Gastrointestinal: Soft and benign Neurological: Normal speech - Studies Microbiology Data (last 24 hrs): 10/01/21 13:53 Wound - L Leg (Lower) Gram Stain - Final 10/01/21 13:51 Wound - Right Lower Leg Gram Stain - Final 10/01/21 13:51 Wound - Right Lower Leg Culture & Sensitivity - Final Meth Resistant Staph Aureus Assessment And Plan - Plan Cellulitis: Patient does have significant lesions in the lower extremity worse on the left. wounds growing MRSA and GNRs. Empiric antibiotic with vancomycin and cefepime to be continued pending culture report finalization.. Wound care consult. ID following for adjustment of antibiotic therapy. skin biopsy planned for outpt for now. Venous stasis: Management as outpatient. Prophylaxis: Lovenox for DVT. Code status: Full code.
[2021-10-03] MEDS: ATORVASTATIN 40 MG TAB PO SCH (20:29)
[2021-10-03] MEDS ORDERED: LACTULOSE 20 GM/30 ML UCUP PO ONE (21:08)
[2021-10-03] MEDS ORDERED: NA CHLORIDE 0.9% 500 ML IV ONE ×2 (21:09→23:47)
[2021-10-03] MEDS: MELATONIN 5 MG TABLET PO SCH (21:56)
[2021-10-03] MEDS ORDERED: NA CHLORIDE 0.9% 500 ML ONE (23:53)
[2021-10-04 00:30] LABS: Hematocrit 35.6 % (39.6-49.0); Lymphocytes % 12.8 % (15.3-44.8); MPV 6.5 fL (7.6-11.3); RBC Red Blood Cell Count 4.32 M/uL (4.33-5.43)
[2021-10-04 00:50] LABS: ALT/SGPT 20 U/L (12-78); AST/SGOT 12 U/L (15-37); Albumin 2.5 g/dL (3.4-5.0); Alkaline Phosphatase 110 U/L (45-117); BUN Blood Urea Nitrogen 19 mg/dL (7-18); Bicarbonate 28 mmol/L (21-32); Bilirubin Total 0.7 mg/dL (0.2-1.0); Glucose Level 128 mg/dL (74-106); Potassium 4.4 mmol/L (3.5-5.1); Protein, Total 5.9 g/dL (6.4-8.2); Sodium Level 138 mmol/L (136-145)
[2021-10-04] MEDS: NA CHLORIDE 0.9% 1,000 ML IV SCH ×2 (01:27→11:04)
[2021-10-04] MEDS: VANCOMYCIN 2 GM in NA CHLORIDE 0.9% 500 ML IVPB SCH (03:00)
[2021-10-04] MEDS: HYDROCODONE/APAP 10/325 TAB PO PRN ×4 (05:46→21:00)
[2021-10-04] MEDS: LIOTHYRONINE SOD 25 MCG TAB PO SCH (05:46)
[2021-10-04] MEDS: POLYETHYL GLY 3350 17 GM/DOSE PO SCH (09:00)
[2021-10-04] MEDS: GABAPENTIN 100 MG CAP PO SCH ×3 (09:08→20:59)
[2021-10-04] MEDS: ACETAMINOPHEN 325 MG TABLET PO SCH (09:08)
[2021-10-04] MEDS: ASCORBIC ACID 500 MG TABLET PO SCH (09:08)
[2021-10-04] MEDS: methocarbamoL 750 MG TAB PO SCH ×3 (09:08→20:59)
[2021-10-04] MEDS: AMIODARONE HCL 200 MG TAB PO SCH (09:08)
[2021-10-04] MEDS: CEFEPIME 1 GM in NA CHLORIDE 0.9% 100 ML IV SCH ×2 (09:09→20:58)
[2021-10-04] MEDS: VANCOMYCIN 1.75 GM in NA CHLORIDE 0.9% 500 ML IVPB SCH (11:04)
--- NOTE | 2021-10-04 12:17 | P.PN ---
Subjective Date of Service: 10/04/21 Chief Complaint: Cellulitis of the legs. Patient seen and examined at bedside, doing well with no acute complaints. Review of Systems 10-point ROS is otherwise unremarkable Physical Examination - Vital Signs Temperature: 97.5 F Blood Pressure: 77/46 Pulse: 82 Respirations: 18 Pulse Ox (%): 96 - Studies Laboratory Last Values WBC 5.8 K/uL (4.3-10.9) 10/01/21 13:47 RBC 5.16 M/uL (4.33-5.43) 10/01/21 13:47 Hgb 13.6 g/dL (13.6-17.9) 10/01/21 13:47 Hct 42.4 % (39.6-49.0) 10/01/21 13:47 MCV 82.1 fL (80-100) 10/01/21 13:47 MCH 26.3 pg (27.0-35.0) L 10/01/21 13:47 MCHC 32.1 g/dL (32.0-36.0) 10/01/21 13:47 RDW 16.8 % (12.1-15.2) H 10/01/21 13:47 Plt Count 208 K/uL (152-406) 10/01/21 13:47 MPV 6.4 fL (7.6-11.3) L 10/01/21 13:47 Neutrophils % 66.3 % (41.7-73.7) 10/01/21 13:47 Lymphocytes % 20.4 % (15.3-44.8) 10/01/21 13:47 Monocytes % 8.3 % (3.3-12.3) 10/01/21 13:47 Eosinophils % 3.9 % (0-4.4) 10/01/21 13:47 Basophils % 1.1 % (0-1.3) 10/01/21 13:47 Absolute Neutrophils 3.9 K/uL (1.8-8.0) 10/01/21 13:47 Absolute Lymphocytes 1.2 K/uL (0.7-4.9) 10/01/21 13:47 Absolute Monocytes 0.5 K/uL (0.1-1.3) 10/01/21 13:47 Absolute Eosinophils 0.2 K/uL (0-0.5) 10/01/21 13:47 Absolute Basophils 0.1 K/uL (0-0.5) 10/01/21 13:47 PT 16.1 SECONDS (9.2-12.8) H 10/01/21 13:47 INR 1.37 10/01/21 13:47 APTT 33.6 SECONDS (21.7-34.4) 10/01/21 13:47 Sodium 139 mmol/L (136-145) 10/01/21 13:47 Potassium 3.9 mmol/L (3.5-5.1) 10/01/21 13:47 Chloride 104 mmol/L (98-107) 10/01/21 13:47 Carbon Dioxide 27 mmol/L (21-32) 10/01/21 13:47 BUN 12 mg/dL (7-18) 10/01/21 13:47 Creatinine 0.59 mg/dL (0.55-1.3) 10/01/21 13:47 Estimated GFR > 90 mL/min (=/>90) 10/01/21 13:47 Glucose 87 mg/dL (74-106) 10/01/21 13:47 Lactic Acid 1.4 mmol/L (0.4-2.0) 10/01/21 13:47 Calcium 9.2 mg/dL (8.5-10.1) 10/01/21 13:47 Procalcitonin < 0.05 ng/mL (<0.050) 10/01/21 13:47 SARS-CoV-2 Rap RNA(RT-PCR) Negative (NEGATIVE) 10/01/21 13:23 Microbiology Data (last 24 hrs): 10/01/21 13:51 Wound - Right Lower Leg Gram Stain - Final 10/01/21 13:51 Wound - Right Lower Leg Culture & Sensitivity - Final Meth Resistant Staph Aureus 10/01/21 13:53 Wound - L Leg (Lower) Gram Stain - Final 10/01/21 13:53 Wound - L Leg (Lower) Culture & Sensitivity - Final Meth Resistant Staph Aureus Acinetobacter Lon/Haem Gram Neg Mundo Assessment And Plan - Plan Physical Exam: General: Alert, In no apparent distress, Oriented x3 HEENT: Atraumatic, Normocephalic Neck: Supple, JVD not distended Respiratory: Clear to auscultation bilaterally, Normal air movement Cardiovascular: Normal pulses, Regular rate/rhythm Gastrointestinal: Normal bowel sounds, Soft and benign Musculoskeletal: No clubbing, No contractures Integumentary: Other (Chronic bilateral lower extremity venous stasis ulcerations: Left lower extremity venous stasis ulceration wound is circumferential, has foul odor, with purulent green-tinged drainage. Base of wound is beefy red.) Conclusions/Impression: Antibiotics: Bactrim: urrent Vancomycin: urrent Cefepime: urrent Assessment/plan Infected chronic bilateral lower extremity venous ulcerations Superficial wound cultures growing MRSA, gram-negative rods, and Acietobacter. Acietobacter multidrug-resistant, only sensitive to Bactrim. We will hold off on starting Bactrim right now as the patient is afebrile with no leukocytosis. Recommend continuing vancomycin and cefepime. Venous Doppler negative for DVT Arterial Doppler showed no significant PAD disease Patient has tried several different wound care modalities, all of which have failed for the patient. As such patient only wants the wound to be cleaned with saline, wrapped with ABD pads, and then wrapped with Kerlix. Dressing is to be changed daily. Educated patient importance of keeping his legs elevated. -recommend outpatient skin biopsy pending to rule out SCC Sacral stage IV ulcer healing Wound care includes: Clean with saline, pack with normal gauze, and cover with sacral foam Avoid direct pressure over area, advised patient to reposition himself in bed every 2 hours during waking hours UTI Urinalysis grossly positive, prelim urine culture growing GNR. Patient was chronic Higgins catheter, last exchanged on 09/27 Recommend urology consultation Recommend CT abdomen pelvis to rule out stone/obstructive uropathy Medical management per primary team Plan of care discussed with Dr. Campos Thank you for consultation
[2021-10-04] MEDS ORDERED: SMZ./TMP. 800/160 MG TABLET PO SCH (13:00)
[2021-10-04] MEDS: RIVAROXABAN 20 MG TABLET PO SCH (16:19)
[2021-10-04] MEDS: ATORVASTATIN 40 MG TAB PO SCH (21:00)
[2021-10-04] MEDS: MELATONIN 5 MG TABLET PO SCH (21:00)
[2021-10-05] MEDS: NA CHLORIDE 0.9% 1,000 ML IV SCH ×3 (00:01→16:55)
[2021-10-05] MEDS: HYDROCODONE/APAP 10/325 TAB PO PRN ×5 (00:58→18:27)
[2021-10-05] MEDS: LIOTHYRONINE SOD 25 MCG TAB PO SCH (05:31)
[2021-10-05] MEDS: POLYETHYL GLY 3350 17 GM/DOSE PO SCH (09:00)
[2021-10-05] MEDS: CEFEPIME 1 GM in NA CHLORIDE 0.9% 100 ML IV SCH (09:03)
[2021-10-05] MEDS: GABAPENTIN 100 MG CAP PO SCH ×2 (09:03→14:41)
[2021-10-05] MEDS: ACETAMINOPHEN 325 MG TABLET PO SCH (09:04)
[2021-10-05] MEDS: AMIODARONE HCL 200 MG TAB PO SCH (09:04)
[2021-10-05] MEDS: ASCORBIC ACID 500 MG TABLET PO SCH (09:04)
[2021-10-05] MEDS: methocarbamoL 750 MG TAB PO SCH ×2 (09:06→14:42)
--- NOTE | 2021-10-05 09:27 | P.PN ---
Subjective Date of Service: 10/04/21 Chief Complaint: Cellulitis of the legs. Subjective: No new changes, Improving Physical Examination - Vital Signs Temperature: 97.8 F Blood Pressure: 89/56 Pulse: 69 Respirations: 18 Pulse Ox (%): 98 - Physical Exam General: Alert, Oriented x3 HEENT: Atraumatic, Normocephalic Neck: Supple Respiratory: Normal air movement Cardiovascular: Regular rate/rhythm, Normal S1 S2 Gastrointestinal: Soft and benign Musculoskeletal: No swelling Neurological: Normal speech - Studies Microbiology Data (last 24 hrs): 10/01/21 13:51 Wound - Right Lower Leg Gram Stain - Final 10/01/21 13:51 Wound - Right Lower Leg Culture & Sensitivity - Final Meth Resistant Staph Aureus 10/01/21 13:53 Wound - L Leg (Lower) Gram Stain - Final 10/01/21 13:53 Wound - L Leg (Lower) Culture & Sensitivity - Final Meth Resistant Staph Aureus Acinetobacter Lon/Haem Gram Neg Mundo Assessment And Plan - Plan Cellulitis: Patient does have significant lesions in the lower extremity worse on the left. wounds growing MRSA and GNRs. Empiric antibiotic with vancomycin and cefepime to be continued pending culture report finalization.. Wound care consult. ID following for adjustment of antibiotic therapy. skin biopsy planned for outpt for now. Venous stasis: Management as outpatient. Prophylaxis: Lovenox for DVT. Code status: Full code.
--- NOTE | 2021-10-05 09:29 | P.PN ---
Subjective Date of Service: 10/05/21 Chief Complaint: Cellulitis of the legs. Subjective: No new changes, Improving Physical Examination - Vital Signs Temperature: 97.8 F Blood Pressure: 89/56 Pulse: 69 Respirations: 18 Pulse Ox (%): 98 - Physical Exam General: Alert, Oriented x3 HEENT: Atraumatic, Normocephalic Neck: Supple Respiratory: Normal air movement Cardiovascular: Regular rate/rhythm, Normal S1 S2 Gastrointestinal: Soft and benign Integumentary: Skin breakdown, Skin lesion - Studies Microbiology Data (last 24 hrs): 10/01/21 13:51 Wound - Right Lower Leg Gram Stain - Final 10/01/21 13:51 Wound - Right Lower Leg Culture & Sensitivity - Final Meth Resistant Staph Aureus 10/01/21 13:53 Wound - L Leg (Lower) Gram Stain - Final 10/01/21 13:53 Wound - L Leg (Lower) Culture & Sensitivity - Final Meth Resistant Staph Aureus Acinetobacter Lon/Haem Gram Neg Mundo Assessment And Plan - Plan Cellulitis: Patient does have significant lesions in the lower extremity worse on the left. wounds growing MRSA and GNRs. Empiric antibiotic with vancomycin and cefepime to be continued pending culture report finalization.. Wound care consult. ID following for adjustment of antibiotic therapy. skin biopsy planned for outpt for now. Venous stasis: Management as outpatient. Prophylaxis: Lovenox for DVT. Code status: Full code.
[2021-10-05] MEDS: VANCOMYCIN 1.75 GM in NA CHLORIDE 0.9% 500 ML IVPB SCH (10:28)
[2021-10-05 11:16] VITALS: O2SAT 98
--- NOTE | 2021-10-05 11:25 | P.PN ---
Subjective Date of Service: 10/05/21 Chief Complaint: Cellulitis of the legs. Patient seen and examined at bedside, urine culture growing Pseudomonas. Review of Systems 10-point ROS is otherwise unremarkable Physical Examination - Vital Signs Temperature: 97.8 F Blood Pressure: 89/56 Pulse: 69 Respirations: 18 Pulse Ox (%): 98 - Studies Laboratory Last Values WBC 5.8 K/uL (4.3-10.9) 10/01/21 13:47 RBC 5.16 M/uL (4.33-5.43) 10/01/21 13:47 Hgb 13.6 g/dL (13.6-17.9) 10/01/21 13:47 Hct 42.4 % (39.6-49.0) 10/01/21 13:47 MCV 82.1 fL (80-100) 10/01/21 13:47 MCH 26.3 pg (27.0-35.0) L 10/01/21 13:47 MCHC 32.1 g/dL (32.0-36.0) 10/01/21 13:47 RDW 16.8 % (12.1-15.2) H 10/01/21 13:47 Plt Count 208 K/uL (152-406) 10/01/21 13:47 MPV 6.4 fL (7.6-11.3) L 10/01/21 13:47 Neutrophils % 66.3 % (41.7-73.7) 10/01/21 13:47 Lymphocytes % 20.4 % (15.3-44.8) 10/01/21 13:47 Monocytes % 8.3 % (3.3-12.3) 10/01/21 13:47 Eosinophils % 3.9 % (0-4.4) 10/01/21 13:47 Basophils % 1.1 % (0-1.3) 10/01/21 13:47 Absolute Neutrophils 3.9 K/uL (1.8-8.0) 10/01/21 13:47 Absolute Lymphocytes 1.2 K/uL (0.7-4.9) 10/01/21 13:47 Absolute Monocytes 0.5 K/uL (0.1-1.3) 10/01/21 13:47 Absolute Eosinophils 0.2 K/uL (0-0.5) 10/01/21 13:47 Absolute Basophils 0.1 K/uL (0-0.5) 10/01/21 13:47 PT 16.1 SECONDS (9.2-12.8) H 10/01/21 13:47 INR 1.37 10/01/21 13:47 APTT 33.6 SECONDS (21.7-34.4) 10/01/21 13:47 Sodium 139 mmol/L (136-145) 10/01/21 13:47 Potassium 3.9 mmol/L (3.5-5.1) 10/01/21 13:47 Chloride 104 mmol/L (98-107) 10/01/21 13:47 Carbon Dioxide 27 mmol/L (21-32) 10/01/21 13:47 BUN 12 mg/dL (7-18) 10/01/21 13:47 Creatinine 0.59 mg/dL (0.55-1.3) 10/01/21 13:47 Estimated GFR > 90 mL/min (=/>90) 10/01/21 13:47 Glucose 87 mg/dL (74-106) 10/01/21 13:47 Lactic Acid 1.4 mmol/L (0.4-2.0) 10/01/21 13:47 Calcium 9.2 mg/dL (8.5-10.1) 10/01/21 13:47 Procalcitonin < 0.05 ng/mL (<0.050) 10/01/21 13:47 SARS-CoV-2 Rap RNA(RT-PCR) Negative (NEGATIVE) 10/01/21 13:23 Microbiology Data (last 24 hrs): 10/01/21 13:51 Wound - Right Lower Leg Gram Stain - Final 10/01/21 13:51 Wound - Right Lower Leg Culture & Sensitivity - Final Meth Resistant Staph Aureus 10/01/21 13:53 Wound - L Leg (Lower) Gram Stain - Final 10/01/21 13:53 Wound - L Leg (Lower) Culture & Sensitivity - Final Meth Resistant Staph Aureus Acinetobacter Lon/Haem Gram Neg Mundo Assessment And Plan - Plan Physical Exam: General: Alert, In no apparent distress, Oriented x3 HEENT: Atraumatic, Normocephalic Neck: Supple, JVD not distended Respiratory: Clear to auscultation bilaterally, Normal air movement Cardiovascular: Normal pulses, Regular rate/rhythm Gastrointestinal: Normal bowel sounds, Soft and benign Musculoskeletal: No clubbing, No contractures Integumentary: Other (Chronic bilateral lower extremity venous stasis ulcerations: Left lower extremity venous stasis ulceration wound is circumferential, has foul odor, with purulent green-tinged drainage. Base of wound is beefy red.) Conclusions/Impression: Antibiotics: Ceftazidime: 10/05current Vancomycin: urrent Cefepime: Assessment/plan Infected chronic bilateral lower extremity venous ulcerations Superficial wound cultures growing MRSA, gram-negative rods, and Acietobacter. Acietobacter multidrug-resistant, only sensitive to Bactrim. We will hold off on starting Bactrim right now as the patient is afebrile with no leukocytosis. Recommend continuing vancomycin and cefepime. Venous Doppler negative for DVT Arterial Doppler showed no significant PAD disease Patient has tried several different wound care modalities, all of which have failed for the patient. As such patient only wants the wound to be cleaned with saline, wrapped with ABD pads, and then wrapped with Kerlix. Dressing is to be changed daily. Educated patient importance of keeping his legs elevated. -recommend outpatient skin biopsy pending to rule out SCC Sacral stage IV ulcer healing Wound care includes: Clean with saline, pack with normal gauze, and cover with sacral foam Avoid direct pressure over area, advised patient to reposition himself in bed every 2 hours during waking hours UTI Urinalysis grossly positive, urine culture growing Pseudomonas. Continue with ceftazidime. Patient was chronic Higgins catheter, last exchanged on 09/27 Recommend urology consultation Recommend CT abdomen pelvis to rule out stone/obstructive uropathy Medical management per primary team Plan of care discussed with Dr. Campos Thank you for consultation
[2021-10-05 16:24] VITALS: BP 122/58; TEMP 97.3
--- NOTE | 2021-10-05 16:24 | P.DS ---
Admission Date: 10/01/21 Discharge Date: 10/05/21 Disposition: ROUTINE DISCHARGE Reason for Admission: Cellulitis of the legs. Brief History of Present Illness: History of Present Illness: 71 y o male patient with medical history significant for venous stasis with bilateral ulcers which has been under the care of infectious disease specialist was evaluated in the ER after patient was asked to be seen in the hospital for episode of worsened infection lower extremity. He had episodes of increased pain and discharge from the leg. He denied any overt episode of fever, chills, night sweats. He denied recent trauma to the leg. He was asked to be admitted for inpatient antibiotic therapy. Allergies codeine Adverse Reaction (Verified 10/26/13 04:13) diarrhea Home Medications: Amitriptyline [Elavil*] 100 mg PO BEDTIME 10/26/13 Hydrocodone Bit/Acetaminophen [Hydrocodon-Acetaminophn 10-325] 1 each PO Q4HP PRN 10/26/13 Pregabalin [Lyrica*] 75 mg PO BID 10/26/13 Spironolactone [Aldactone*] 25 mg PO DAILY #30 tab 10/28/13 paricalcitoL [Zemplar*] 1 mcg PO M,W,F@0900 #12 cap 10/29/13 Hospital Course: Physical Exam: General: Alert, In no apparent distress, Oriented x3 HEENT: Atraumatic, Normocephalic Neck: Supple, JVD not distended Respiratory: Clear to auscultation bilaterally, Normal air movement Cardiovascular: Normal pulses, Regular rate/rhythm Gastrointestinal: Normal bowel sounds, Soft and benign Musculoskeletal: No clubbing, No contractures Integumentary: Other (Chronic bilateral lower extremity venous stasis ulcerations: Left lower extremity venous stasis ulceration wound is circumferential, has foul odor, with purulent green-tinged drainage. Base of wound is beefy red.) Current antibiotics medication Ceftazidime: 10/05current Vancomycin: urrent Cefepime: Hospital course Patient have transparent low blood pressure with wound culture as well as urine culture growing multiple organisms. Patient is currently on antibiotics. Blood pressure has stabilized now. Heart rate remained controlled. Patient will be transferred to [facility] under Dr. Campos Other plan per ID Infected chronic bilateral lower extremity venous ulcerations Superficial wound cultures growing MRSA, gram-negative rods, and Acietobacter. Acietobacter multidrug-resistant, only sensitive to Bactrim. We will hold off on starting Bactrim right now as the patient is afebrile with no leukocytosis. Recommend continuing vancomycin and cefepime. Venous Doppler negative for DVT Arterial Doppler showed no significant PAD disease Patient has tried several different wound care modalities, all of which have failed for the patient. As such patient only wants the wound to be cleaned with saline, wrapped with ABD pads, and then wrapped with Kerlix. Dressing is to be changed daily. Educated patient importance of keeping his legs elevated. -recommend outpatient skin biopsy pending to rule out SCC Sacral stage IV ulcer healing Wound care includes: Clean with saline, pack with normal gauze, and cover with sacral foam Avoid direct pressure over area, advised patient to reposition himself in bed every 2 hours during waking hours UTI Urinalysis grossly positive, urine culture growing Pseudomonas. Continue with ceftazidime. Patient was chronic Higgins catheter, last exchanged on 09/27 Recommend urology consultation Recommend CT abdomen pelvis to rule out stone/obstructive uropathy Vital Signs/Physical Exam: Temp Pulse Resp BP Pulse Ox 97.8 F 69 18 103/61 97 10/05/21 12:00 10/05/21 12:00 10/05/21 14:43 10/05/21 12:00 10/05/21 14:43 Laboratory Data at Discharge: WBC 7.6 K/uL (4.3-10.9) D 10/04/21 00:20 Hgb 11.6 g/dL (13.6-17.9) L 10/04/21 00:20 Hct 35.6 % (39.6-49.0) L 10/04/21 00:20 Plt Count 182 K/uL (152-406) 10/04/21 00:20 PT 16.1 SECONDS (9.2-12.8) H 10/01/21 13:47 INR 1.37 10/01/21 13:47 APTT 33.6 SECONDS (21.7-34.4) 10/01/21 13:47 Sodium 138 mmol/L (136-145) 10/04/21 00:20 Potassium 4.4 mmol/L (3.5-5.1) 10/04/21 00:20 BUN 19 mg/dL (7-18) H 10/04/21 00:20 Creatinine 0.75 mg/dL (0.55-1.3) 10/04/21 00:20 Glucose 128 mg/dL (74-106) H 10/04/21 00:20 Total Bilirubin 0.7 mg/dL (0.2-1.0) 10/04/21 00:20 AST 12 U/L (15-37) L 10/04/21 00:20 ALT 20 U/L (12-78) 10/04/21 00:20 Alkaline Phosphatase 110 U/L (45-117) 10/04/21 00:20 Home Medications: Hydrocodone Bit/Acetaminophen [Hydrocodon-Acetaminophn 10-325] 1 each PO Q4HP PRN 10/26/13 Acetaminophen [Non-Aspirin] 325 mg PO DAILY 10/02/21 Amiodarone HCl [Cordarone Tab] 200 mg PO DAILY 10/02/21 Ascorbic Acid [C-500] 500 mg PO DAILY 10/02/21 Atorvastatin Calcium [Lipitor] 40 mg PO BEDTIME 10/02/21 Clonidine HCl [Clonidine HCl ER] 0.1 mg PO DAILY 10/02/21 Gabapentin [Neurontin] 600 mg PO QID 10/02/21 Liothyronine [Cytomel] 25 mcg PO DAILY 10/02/21 Melatonin 10 mg PO BEDTIME 10/02/21 Midodrine HCl 3 tab PO Q8H 10/02/21 Polyethylene Glycol 3350 [Miralax] 17 gm PO DAILY 10/02/21 Rivaroxaban [Xarelto] 20 mg PO DAILY 10/02/21 methocarbamoL [Methocarbamol] 750 mg PO TID 10/02/21 Activity: Weight bearing as tolerated Followup: [facility] [Primary Care Provider] - Time spent managing pt's care (in minutes): 35
[2021-10-05] MEDS ORDERED: CEFTAZIDIME 2 GM in NA CHLORIDE 0.9% 100 ML IV SCH (17:00)
[2021-10-05] MEDS ORDERED: CEFTAZIDIME 2 GM/VIAL IV SCH (17:00)
[2021-10-05] MEDS: RIVAROXABAN 20 MG TABLET PO SCH (17:11)
--- NOTE | 2021-10-05 17:53 | RAD REPORT ---
EXAM DESCRIPTION: CT - Abdomen Pelvis Wo Contrast - 10/05/2021 5:43 pm CLINICAL HISTORY: Abdominal pain. UTI with sepsis , r/o stone COMPARISON: No comparisons TECHNIQUE: CT imaging of the abdomen and pelvis was performed without contrast. Solid organ, bowel a nd vascular assessment is limited due to lack of IV and oral contrast. All CT scans are performed using dose optimization technique as appropriate and may include automated exposure control or mA/KV adjustment according to patient size. FINDINGS: The lower lung [place] are clear. The liver, spleen, pancreas, adrenal glands and kidneys are within normal limits for a limited non-co ntrast examination.No urinary tract stone seen. No hydronephrosis. No bowel obstruction, free air, free fluid or abscess. The appendix is normal. There is a moderate a mount of stool present in the rectum. Moderate fat containing left inguinal hernia. Moderate spinal degenerative changes. IMPRESSION: No urinary tract stone is seen. No hydronephrosis is present. A limited non-contrast examination was performed as detailed.
== END 2021-10-05 19:10 | DRG 602 ==
LOC: ER 12:59 → ERHOLD 16:20 → 4TH 20:36 → 2ND 10-02 19:35
PROVIDERS: ADMIT Internal Medicine Nephrology; ATTEND Internal Medicine Nephrology
DX: L03.116 Cellulitis of left lower limb (principal); L89.154 Pressure ulcer of sacral region, stage 4; T83.511A Infection and inflammatory reaction due to indwelling urethral catheter, initial encounter; N39.0 Urinary tract infection, site not specified; Z16.24 Resistance to multiple antibiotics; L97.919 Non-pressure chronic ulcer of unspecified part of right lower leg with unspecified severity; L97.929 Non-pressure chronic ulcer of unspecified part of left lower leg with unspecified severity; L03.115 Cellulitis of right lower limb; B96.5 Pseudomonas (aeruginosa) (mallei) (pseudomallei) as the cause of diseases classified elsewhere; B95.62 Methicillin resistant Staphylococcus aureus infection as the cause of diseases classified elsewhere; I10 Essential (primary) hypertension; G47.33 Obstructive sleep apnea (adult) (pediatric); J44.9 Chronic obstructive pulmonary disease, unspecified; I48.0 Paroxysmal atrial fibrillation; E66.01 Morbid (severe) obesity due to excess calories; Z68.33 Body mass index [BMI] 33.0-33.9, adult; I83.009 Varicose veins of unspecified lower extremity with ulcer of unspecified site; Z96.652 Presence of left artificial knee joint; Z20.822 Contact with and (suspected) exposure to COVID-19
CPT/HCPCS: 36415; 74176; 80048; 80053; 80202; 81003; 81015; 83605; 84145; 85025; 85610; 85730; 87040; 87070; 87077; 87086; 87088; 87186; 87205; 93005; 93925; 93970; 96365; 96375; 99284; J0692; J0713; J1650; J3010; J3370; J7030; J7040; J7050; U0003

== ENCOUNTER 2021-11-20 15:34 | Inpatient (IN) | payer OTHER ==
--- OUTSIDE RECORDS SUMMARY | 2021-11-20 15:54 | XMS REPORT | Continuity of Care Document ---
:1950 Author Organization [facility] t Address [address] [place] [address] Care Team Providers Name Role Phone Asked, Pcp Primary Care Physician Unavailable [id number] Attending Clinician Unavailable RADHA MAYA Attending Clinician Unavailable CHA HARP Attending Clinician Unavailable MELINA Attending Clinician Unavailable Attending Clinician Unavailable Singer CHRISTIANSON Attending Clinician [email or web address] Attending Clinician Unavailable Jeremiah Lopez Attending Clinician [phone] SANDHYA Attending Clinician Unavailable Freddy SERVIN, B Attending Clinician Unavailable MADDI Attending Clinician Unavailable Adilson Summers DO Attending Clinician Maddi FAY Attending Clinician CARSON Attending Clinician Unavailable Michelle HALLMAN Attending Clinician Unavailable Anival FAY Attending Clinician Michelle Hallman MD Attending Clinician Rin Vee MD Attending Clinician Alcon Pimentel MD Attending Clinician Doctor Unassigned, Name Attending Clinician Unavailable KNOW Attending Clinician Unavailable Luciano Garcia MD Attending Clinician Ousmane Mac MD Attending Clinician Shaikh SUMEET Attending Clinician Giovani Tejada Attending Clinician Jian Claudio MD Attending Clinician Florina Mills MD Attending Clinician Fredrick FAY Attending Clinician MD GIOVANI TEJADA Attending Clinician Unavailable DR CHICO Attending Clinician Unavailable Geetha FAY Attending Clinician Sunday Herrera Attending Clinician MD ARLINE Attending Clinician Unavailable MD SUNDAY HERRERA Attending Clinician Unavailable Janet SERVIN Attending Clinician CHERYL Attending Clinician Unavailable Stacia ORELLANA, R Attending Clinician Nicolas Medrano MD Attending Clinician Linda FAY Attending Clinician Cheryl FAY Attending Clinician Elijah Dee MD Attending Clinician Vania Castorena MD Attending Clinician Brendon FAY Attending Clinician Vania CASTORENA Attending Clinician Unavailable Malissa Summers Attending Clinician Unavailable [id number] Admitting Clinician Unavailable RADHA MAYA Admitting Clinician Unavailable CHA HARP Admitting Clinician Unavailable SANDHYA Admitting Clinician Unavailable [email or web address] Admitting Clinician Unavailable VANDONGEN Admitting Clinician Unavailable MADDI Admitting Clinician Unavailable Maddi FAY Admitting Clinician JULIETTE Admitting Clinician Unavailable Michelle HALLMAN Admitting Clinician Unavailable Michelle Hallman MD Admitting Clinician KNOW Admitting Clinician Unavailable BUBBA Admitting Clinician Unavailable MD OUSMANE MAC Admitting Clinician Unavailable DR CHICO Admitting Clinician Unavailable ELIJAH DEE Admitting Clinician Unavailable Elijah Dee MD Admitting Clinician Brendon FAY Admitting Clinician Malissa Summers Admitting Clinician Unavailable Payers Payer Name Policy Type Policy Number Effective Date Expiration Date Lc [facility] [id number] MEDICARE PART A [id number] 2014 \\T\\ B 00:00:00 [place]: [id number] [employer] [id number] [employer] (MEDICARE SUPPLEMENT) *SELF PAY* NEED CORRECT MEDICARE ID WISE s.r.l [id number] (MEDICARE REPLACEMENT HMO) Problems Condition Condition Condition Status Onset Resolution Last Treating Co mments Source Name Details Category Date Date Treatment Clinician Date UTI UTI Disease Active 2020-06 Univers (urinary (urinary 1-27 ity of tract tract 00:00: [place] infection) infection) 00 Me dical Branch Paroxysmal Paroxysmal Disease Active U nivers atrial atrial 8-04 ity of fibrillati fibrillati 00:00: [place] on with on with 00 Medical RVR RVR Branch Septic Septic Disease Active Univers shock shock 8-04 ity of 00:00: [place] 00 Medical Branch Paroxysmal Paroxysmal Disease Active U nivers atrial atrial 8-04 ity of fibrillati fibrillati 00:[place] on with on with 00 Medical RVR RVR Branch AGNIE (acute ANGIE (acute Disease Active U nivers kidney kidney 8-04 ity of injury) injury) 00:00: [place] 00 Medical Branch Hypotensio Hypotensio Disease Active Overview : Univers n, n, 8-02 Formattin ity of unspecifie unspecifie 00:00: g of this [place] d d 00 note Medical hypotensio hypotensio might be Branch n type n type different from the original. 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 (current) (current) 1-24 ity of use of use of 00:00: [place] anticoagul anticoagul 00 Me dical ants ants Branch Bacteremia Bacteremia Disease Active U nivers due to due to 23 ity of Gram-negat Gram-negat 00:00: [place] tressa tressa 00 Medical bacteria bacteria Branch Diarrhea Diarrhea Disease Active Unive rs of of 07-15 ity of presumed presumed 00:00: [place] infectious infectious 00 Me dical origin origin Branch Respirator Respirator Disease Active U nivers y failure, y failure, -21 it y of acute acute 00:00: [place] 00 Medical Branch PAF PAF Disease Active Univers (paroxysma (paroxysma 03 it y of l atrial l atrial 00:00: [place] fibrillati fibrillati 00 Me dical on) on) Branch Morbid Morbid Disease Active Univers obesity obesity -03 ity of 00:00: [place] Medical [facility] Essential Essential Disease Active Uni vers hypertensi hypertensi 1-03 it y of on on 00:00: [place] [facility] COVID-19 COVID-19 Disease Active Overview: Un caesar virus virus -03 Formattin ity of infection infection 00:00: g of this [place] 00 note is Medical different Branch from the original. SARS-CoV- 2 Rapid ID NOW (no units) Date Value 1 Positive (A) 0 Positive (A) Anemia Anemia Disease Active Univers 1-03 ity of 00:00: [place] Medical [facility] Sinus Sinus Disease Active Univers bradycardi bradycardi 1-03 it y of a a 00:00: [place] [facility] Cellulitis Cellulitis Disease Active 2019-06 U nivers 2-30 ity of 00:00: [place] [address] Medical Branch Obstructiv Obstructiv Diagnosis Active Common e sleep e sleep Spirit apnea apnea - [facility] Insomnia Insomnia Problem Active Commo n Spirit - [facility] Peripheral Peripheral Problem Active C ommon vascular vascular Spirit disease disease - [facility] Body mass Body mass Problem Active Com mon index index Spirit (BMI) of (BMI) of - [facility] 40.0-44.9 40.0-44.9 St in adult in adult [facility] 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 - [facility] Chronic Chronic Diagnosis Active Commo n obstructiv obstructiv Sp sai e e - [facility] pulmonary pulmonary St disease disease [facility] (COPD) (COPD) [facility] Lymphedema Lymphedema Diagnosis Active Common , not , not Spirit elsewhere elsewhere - CH I classified classified [facility] Hypothyroi Hypothyroi Problem Active C ommon dism dism [facility] Hyperglyce Hyperglyce Problem Active C ommon [facility] Hypertensi Hypertensi Diagnosis Active Common on on [facility] 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 CODEINE Allergy Active ENCCLR 18 15:11: 11 [...] Active Other-Cmnt 2019-06 Univer s SULFADIA INGREDI 2-30 ity of ZINE 00:00: [place] 00 Medical Branch Silver Propensi Active Other - See 2019-06 "makes Uni vers Sulfadia ty to comments 2-30 wounds ity of zine adverse 00:00: worse" [place] reaction Medical s Branch CODEINE Allergy Active ENCCLR 01-25 22:13: 58 CODEINE Allergy Active ENCCLR 01-25 22:13: 58 CODEINE Allergy Active ENCCLR 01-25 22:13: 58 CODEINE Allergy Active ENCCLR 01-25 22:13: 58 CODEINE Allergy Active ENCCLR 01-25 22:13: 58 CODEINE Allergy Active ENCCLR 01-25 22:13: 58 CODEINE Allergy Active ENCCLR 01-25 22:13: 58 CODEINE Allergy Active ENCCLR 01-25 22:13: 58 CODEINE Allergy Active 2020-0 ENCCLR 01-25 22:13: 58 CODEINE Allergy Active 2020-0 ENCCLR 01-25 22:13: 58 CODEINE Allergy Active 2020-0 ENCCLR 01-25 22:13: 58 CODEINE Allergy Active 2020-0 ENCCLR 01-25 22:13: 58 SULFA Allergy Active [...] 46 SULFADIA Allergy Active 2020-0 ENCCLR ZINE 8-05 22:13: 46 SULFADIA Allergy Active 2020-0 ENCCLR ZINE 8-05 22:13: 46 Codeine Adverse Active Info Not Common Sulfate Reaction Available Spir [facility] Social History Social Habit Start Date Stop Date Quantity Comments Source Exposure to 2021-11-06 2021-11-16 Not sure University SARS-CoV-2 00:00:00 11:42:00 [place] [facility] (event) Branch Alcohol intake 2020-08-08 2020-08-08 Ex-drinker [facility] 00:00:00 00:00:00 (finding) Hospital Tobacco use and 2020-07-21 2020-07-21 Smokeless tobacco Me thodist exposure 00:00:00 00:00:00 non-user Hospital History SDOH 2020-07-13 2020-07-13 99 University o f Alcohol Frequency 00:00:00 00:00:00 [facility] edical Branch History SDOH 2020-07-13 2020-07-13 99 University o f Alcohol Std 00:00:00 00:00:00 [place] Medical Drinks Branch History SDOH 2020-07-13 2020-07-13 99 University o f Alcohol Binge 00:00:00 00:00:00 [place] Medic al Branch Education 2020-07-13 2020-07-13 13 University of 00:00:00 00:00:00 [place] [facility] History SDOH Food 2020-07-13 2020-07-13 1 Univers ity of Worry 00:00:00 00:00:00 [place] [facility] History SDOH Food 2020-07-13 2020-07-13 1 Univers ity of Scarcity 00:00:00 00:00:00 [place] [facility] History SDOH 2020-07-13 2020-07-13 2 University o f Transport Med 00:00:00 00:00:00 [place] Medic al Branch History SDOH 2020-07-13 2020-07-13 2 University o f Transport Non-Med 00:00:00 00:00:00 [facility] edical Branch Alcohol Comment 2020-07-13 2020-07-13 hasn't had drink Uni versity of 00:00:00 00:00:00 since 2013; use [place] Med ical to drink 5-6 Branch beers on some weekends Sex [birth year] [facility] 00:00:00 00:00:00 Hospital Smoking Status Start Date Stop Date Source Never smoker [facility] Branch Medications Ordered Filled Start Stop Current Ordering Indication Dosage Frequency Signature Comments Components Source Medication Medication Date Date Medication? Clinician (SIG) Name Name HYDROcodone 2021- No 1{tbl} 1 tablet, Univers -acetaminop 06-29 Oral, ity of hen (NORCO) 01:45: 00:43 ONCE, 1 [place] 10-325 mg 00 :00 dose, On Medica l tablet Fri06/28/21 Branc h tablet at 1945, Routine cefTRIAXone No 1000mg 1,000 mg, Univers (ROCEPHIN) 06-28 IV ity of 1,000 mg in 18:45: 19:07 [place], [place] NaCl 0.9% 00 :00 ONCE, 1 Medical (NS) 50 mL dose, On Branc h MINI-BAG Fri06/28/21 at 1245, Administer over 30 Minutes, 50 [...] h tablet at 1145, Routine levoFLOXaci Yes [id number] 750mg Take 1 Univers n 750 mg 1-06 tablet by ity of tablet 00:00: mouth [place] 00 every 24 Medical (twenty-fo Branch ur) hours. levoFLOXaci Yes [id number] 750mg Take 1 Univers n 750 mg 1-06 tablet by ity of tablet 00:00: mouth [place] 00 every 24 Medical (twenty-fo Branch ur) hours. aspirin 81 2020-06 Yes 81mg Take 81 mg U nivers mg chewable 2-02 by mouth ity of tablet 21:31: daily. [place] [address] Medical Branch gabapentin 2020-06 Yes 600mg Take 600 Un caesar 600 mg 2-02 mg by ity of tablet 21:31: mouth 4 [place] [address] (four) Medical times Branch daily. enalapril 5 2020-06 Yes 5mg Take 5 mg U nivers mg tablet 2-02 by mouth ity of 21:31: daily. [address] Branch rivaroxaban 2020-06 Yes 20mg Take 20 mg Univers (XARELTO) 2-02 by mouth ity of 20 mg 21:31: daily. [place] [address] Medical Branch liothyronin 2020-06 Yes 25ug Take [...] by mouth ity of tablet 21:31: daily. [address] Branch gabapentin 2020-06 Yes 600mg Take 600 Un caesar 600 mg 2-02 mg by ity of tablet 21:31: mouth 4 [place] [address] (four) Medical times Branch daily. enalapril 5 2020-06 Yes 5mg Take 5 mg U nivers mg tablet 2-02 by mouth ity of 21:31: daily. [address] Branch rivaroxaban 2020-06 Yes 20mg Take 20 mg Univers (XARELTO) 2-02 by mouth ity of 20 mg 21:31: daily. [place] [address] Medical Branch liothyronin 2020-06 Yes 25ug Take [...] by mouth ity of tablet 21:31: daily. [place] [address] Medical Branch gabapentin 2020-06 Yes 600mg Take 600 Un caesar 600 mg 2-02 mg by ity of tablet 21:31: mouth 4 [place] [address] (four) Medical times Branch daily. enalapril 5 2020-06 Yes 5mg Take 5 mg U nivers mg tablet 2-02 by mouth ity of 21:31: daily. [address] Branch rivaroxaban 2020-06 Yes 20mg Take 20 mg Univers (XARELTO) 2-02 by mouth ity of 20 mg 21:31: daily. [place] [address] Medical Branch liothyronin 2020-06 Yes 25ug Take 25 Uni vers e 25 mcg 2-02 mcg by ity of tablet 21:31: mouth [place] [address] daily. Medical Branch amiodarone 2020-06 Yes 200mg Take 200 Un caesar 200 mg 2-02 mg by ity of tablet 21:31: mouth [place] [address] daily. Medical Branch HYDROcodone 2020-06 Yes 1{tbl} Take 1 Un caesar -acetaminop 2-02 tablet by ity of hen (NORCO) 21:31: mouth [place] 10-325 mg 53 every 6 Medical tablet (six) Branch hours as needed. aspirin 81 2020-06 Yes 81mg Take 81 mg U nivers mg chewable 2-02 by mouth ity of tablet 21:31: daily. [place] [address] Medical Branch gabapentin 2020-06 Yes 600mg Take 600 Un caesar 600 mg 2-02 mg by ity of tablet 21:31: mouth 4 [place] [address] (four) Medical times Branch daily. enalapril 5 2020-06 Yes 5mg Take 5 mg U nivers mg tablet 2-02 by mouth ity of 21:31: daily. [address] Branch rivaroxaban 2020-06 Yes 20mg Take 20 mg Univers (XARELTO) 2-02 by mouth ity of 20 mg 21:31: daily. [place] [address] Medical Branch liothyronin 2020-06 Yes 25ug Take [...] Yes 5mL 5 mL, Univers 1% (PF) 07-24 Subcutaneo ity of (XYLOCAINE) 19:00: [place], PRN, [place] injection 5 26 Starting Medi karine mL on Fri Branch 05/23/21 at 1300, Until Discontinu ed, Routine, Local anesthesia meropenem 2020-06 Yes 1g 1 g, IV Unive rs (MERREM) 07-24 Piggyback, ity of g in NaCl 16:00: [...] 00 First dose Medical on Fri Branch 05/21/21 at 2130, Until Discontinu ed, Routine meropenem 2020-06 1g 1 g, IV Univ ers (MERREM) 07-22 Piggyback, it y of g in [...] [place] mcg 00 First dose Medical on [facility] 05/20/21 at 0900, Until Discontinu ed, Routine enalapril 2020-06 Yes 5mg 5 mg, Univers (VASOTEC) 07-20 Oral, ity of tablet 5 mg 15:00: DAILY, [place] 00 First dose Medical on [facility] 05/20/21 at 0900, Until Discontinu ed, Routine amiodarone 2020-06 Yes 200mg 200 mg, Uni vers (PACERONE) 07-20 Oral, ity of tablet 200 15:00: DAILY, [place] mg 00 First dose Medical on [facility] 05/20/21 at 0900, Until Discontinu ed, Routine docusate 2020-06 Yes 100mg 100 mg, Unive rs (COLACE) 07-20 Oral, BID, ity o f capsule 100 02:00: First dose [place] mg 00 on [facility] 05/19/21 Branch at 1999, Until Discontinu ed, Routine gabapentin 2020-06 Yes 600mg 600 mg, Uni vers (NEURONTIN) 07-20 Oral, QID, it y of tablet 600 02:00: First dose [place] mg 00 on [facility] 05/19/21 Branch at 1999, Until Discontinu ed, Routine lactobacill 2020-06 Yes .5mg 0.5 mg, Uni vers us 07-20 Oral, BID, ity of acidophilus 02:00: First dose [place] tablet 0.5 00 on [facility] 05/19/21 Branch at 1999, Until Discontinu ed HYDROcodone 2020-06 Yes 1{tbl} 1 tablet, Univers -acetaminop 07-20 Oral, ity of hen (NORCO) 01:56: Q6HPRN, [place] 10-325 mg 56 Starting Medica l tablet 1 on [facility] Branch tablet 05/19/21 at 1956, Until Discontinu ed, Routine, Pain (scale 7-10) ertapenem 2020-06 202 No 1000mg 1,000 mg, Univers (INVANZ) 07-19 IV ity of 1,000 mg in 23:45: 02:58 Piggyback, [place] NaCl 0.9% 00 :00 ONCE, 1 Medical (NS) 50 mL dose, On [facility] h MINI-BAG 05/19/21 at 1745, Administer over 30 Minutes, 50 mL
Reas on for Anti-Infec tive: Documented Infection< br>Documen josé antonio Infection Site: Urine<br&g t;Duration of Therapy: 7 days
Re stricted use approved by: ADC PROVIDER ondansetron 2020-06 Yes 4mg 4 mg, Slow Univers (ZOFRAN 07-19 IV Push, ity of (PF)) 22:56: Q6HPRN, [place] injection 4 24 Starting Medi karine mg on [facility] Branch 05/19/21 at 1656, Until Discontinu ed, Routine, Nausea and Vomiting (N/V) acetaminoph 2020-06 Yes 650mg 650 mg, Un caesar en 07-19 Oral, ity of (TYLENOL) 22:56: Q6HPRN, [place] tablet 650 00 Starting Medic al mg on [facility] Branch 05/19/21 at 1656, Until Discontinu ed, Routine, Pain (scale 1-3), Temp > 38.5 C aspirin 81 Yes 81mg Take 81 mg U nivers mg chewable 8-17 by mouth ity of tablet 02:13: daily. [place] [address] Medical Branch gabapentin Yes 600mg Take 600 Un caesar 600 mg 8-17 mg by ity of tablet 02:13: mouth 4 [place] [address] (four) Medical times Branch daily. enalapril 5 Yes 5mg Take 5 mg U nivers mg tablet 8-17 by mouth ity of 02:13: daily. [place] [address] Medical Branch rivaroxaban Yes 20mg Take 20 mg Univers (XARELTO) 8-17 by mouth ity of 20 mg 02:13: daily. [place] tablet 59 Medical Branch liothyronin Yes 25ug Take 25 Uni vers e 25 mcg 8-17 mcg by ity of tablet 02:13: mouth [place] 59 daily. Medical Branch amiodarone Yes 200mg Take 200 Un caesar 200 mg 8-17 mg by ity of tablet 02:13: mouth [place] 59 daily. Medical Branch aspirin 81 0 Yes 81mg Take 81 mg U nivers mg chewable 8-17 by mouth ity of tablet 02:13: daily. [place] 59 Medical Branch gabapentin 0 Yes 600mg Take 600 Un caesar 600 mg 8-17 mg by ity of tablet 02:13: mouth 4 [place] 59 (four) Medical times Branch daily. enalapril 5 Yes 5mg Take 5 mg U nivers mg tablet 8-17 by mouth ity of 02:13: daily. [place] 59 Medical Branch rivaroxaban Yes 20mg Take 20 mg Univers (XARELTO) 8-17 by mouth ity of 20 mg 02:13: daily. [place] tablet 59 Medical Branch liothyronin 0 Yes 25ug Take [...] at 2000, Until Discontinu ed, Routine iron 2020- No 500mg 500 mg, IV Unive rs dextran 02-05 Infusion, ity of (INFED) 500 22:30: 23:59 ONCE, 1 [place] mg in NaCl 00 :00 dose, Mon Medi karine 0.9% (NS) 02/05/21 at Bran ch 500 mL IV 1730, infusion Administer over [...] Mon Medi karine 0.9% (NS) 02/05/21 at [facility] 100 mL IV 1715, piggyback Administer over 15 Minutes, 100 mL magnesium No 4g 4 g, IV Univ ers sulfate in 02-05 Piggyback, it y of water 4 13:45: 13:38 ONCE, 1 [place] gram/50 mL 00 :00 dose, Mon Medi karine (8 %) IV 02/05/21 at [facility] h Piggyback 4 0845, g Routine methadone 5 2020- No 2745 2.5mg Take 0.5 Univers mg tablet 02-0524 tablets by ity of 00:00: 04:59 mouth [place] 00 :00 every 6 Medical (six) Branch hours for 7 days. Indication s: acute pain, chronic pain HYDROcodone 2020- No 4647 1{tbl} Take 1 U nivers -acetaminop 02-05-24 tablet by it y of hen 5-325 [...] 4647 1{tbl} Take 1 U nivers -acetaminop 02-05-24 tablet by it y of hen 5-325 00:00: 04:59 mouth [place] mg tablet 00 :00 every 6 Medical (six) Branch hours as needed for Pain (scale 4-6) for up to 7 days. Indication s: acute pain KCL 2020- No 20meq 20 mEq, Univers (KLOR-CON 02-04 Oral, ity of M20) tablet 11:15: 11:19 ONCE, 1 [place] 20 mEq 00 :00 dose, [place] [facility] 02/04/21 at Branch 0615, Routine glycerin/mi 2020- No 225mL 225 mL, U nivers neral oil 02-03 Rectal, ity of (AGLO 23:15: 23:15 ONCE, 1 [place] ENEMA) 00 :00 dose, [facility] Medical (COMPOUNDED 02/03/21 at Br anch ) Enem 225 1815, mL Routine methadone Yes 2.5mg 2.5 mg, Univ ers (DOLOPHINE 02-03 Oral, Q6H, ity of HCL) tablet 23:00: First dose [place] 2.5 mg 00 (after Medical last Branch modificati on) on [facility] 02/03/21 at 1800, Until Discontinu ed, Routine magnesium No 296mL 296 mL, Uni vers citrate 02-03 Oral, ity of solution 17:15: 20:15 ONCE, 1 [place] 296 mL 00 :00 dose, [facility] 02/03/21 at Branch 1215, Routine NaCl 0.9% 2020- No 500mL at 100 Univ ers (NS) IV 02-03 mL/hr, IV ity of infusion 15:45: 17:15 Infusion, [place] 500 mL 00 :00 ONCE, 1 Medical dose, [facility] 02/03/21 at 1045, Routine lactulose 2020- No 15mL 15 mL, Unive rs (CEPHULAC) 02-03 Oral, BID, it y of solution 15 13:30: 12:20 First dose [place] mL 00 :23 on [facility] 02/03/21 at Branch 0830, Until Discontinu ed, [...] Fri Medica l 8.6-50 mg 02/02/21 at [facility] per tablet 0830, 3 tablet Until Discontinu ed, Routine polyethylen 2020- No 17g 17 g, Univ ers e glycol 02-02 Oral, BID, ity of 3350 powder 13:30: 12:56 First dose [place] 17 g 00 :12 on Fri Medical 02/02/21 at Branch 0830, Until Discontinu ed, Routine magnesium 2020- No 4g 4 g, IV Univ ers sulfate in 02-02 Piggyback, it y of water 4 01:00: 01:38 ONCE, 1 [place] gram/50 mL 00 :00 dose, [place] Medi karine (8 %) IV 02/01/21 at [facility] Piggyback 4 1999, g Routine calcium Yes 500mg 500 mg, Univer s carbonate 02-01 Oral, ity of (OSCAL-500) 22:45: DAILY, [place] tablet 500 00 First dose Med ical mg on [place] Branch 02/01/21 at 1745, Until Discontinu ed, Routine acetaminoph No 650mg 650 mg, U nivers en 02-01 Oral, Q6H, ity of (TYLENOL) 17:00: 17:13 First dose [place] tablet 650 00 :36 on [place] Medical mg 02/01/21 at Branch 1200, Until Discontinu ed, Routine magnesium 2020- No 4g 4 g, IV Univ ers sulfate in 02-01 Piggyback, it y of water 4 16:30: 17:46 ONCE, 1 [place] gram/50 mL 00 :00 dose, [place] Medi karine (8 %) IV 02/01/21 at Branc h Piggyback 4 1130, g Routine rivaroxaban Yes 20mg 20 mg, Univ ers (XARELTO) 02-01 Oral, ity of tablet 20 14:00: DAILY, [place] mg 00 First dose Medical on [place] Branch 02/01/21 at 0900, Until Discontinu ed, Routine NaCl 0.9% 0 Yes 10mL 10 mL, Univer s (NS) 01-31 Slow IV ity of injection 17:12: Push, PRN, [place] 10 mL 51 Starting Medical [facility] Branch 01/31/21 at 1212, Until Discontinu ed, Routine, line maintenanc e lidocaine 0 Yes 5mL 5 mL, Univers 1% (PF) 01-31 Subcutaneo ity of (XYLOCAINE) 17:12: us, PRN, [place] injection 5 51 Starting Medi karine mL [facility] Branch 01/31/21 at 1212, Until Discontinu ed, Routine, Local anesthesia NaCl 0.9% 0 Yes 10mL 10 mL, Univer s (NS) 01-31 Slow IV ity of injection 17:12: Push, PRN, [place] 10 mL 51 Starting Medical [facility] Branch 01/31/21 at 1212, Until Discontinu ed, Routine, line maintenanc e lidocaine 2020-0 Yes 5mL 5 mL, Univers 1% (PF) 01-31 Subcutaneo ity of (XYLOCAINE) 17:12: us, PRN, [place] injection 5 51 Starting Medi karine mL [facility] Branch 01/31/21 at 1212, Until Discontinu ed, Routine, Local anesthesia magnesium 2020-2020- No 2g 2 g, IV Univ ers sulfate in 01-31 Piggyback, it y of water 2 12:30: 15:00 ONCE, 1 [place] gram/50 mL 00 :00 dose, Fri Medi karine (4 %) 01/31/21 at Branch infusion 2 0730, g Routine magnesium 2020-0 2020- No 2g 2 g, IV Univ ers sulfate in 01-31 Piggyback, it y of water 2 10:40: 13:00 ONCE, 1 [place] gram/50 mL 00 :00 dose, Wed Medi karine (4 %) 01/31/21 at Branch infusion 2 0545, g Routine NaCl 0.9% 2020- No 500mL at 999 Univ ers (NS) bolus 01-31 08-11 mL/hr, 500 it y of infusion 06:00: 04:59 mL, IV [place] 500 mL 00 :00 Piggyback, Medical ONCE NOW, Branch 1 dose, Fri01/31/21 at 0100, STAT NaCl 0.9% 2020- No 500mL at 999 Univ ers (NS) bolus 8 08-11 mL/hr, 500 it y of infusion 02:30: 01:51 mL, IV [place] 500 mL 00 :00 Piggyback, Medical ONCE, 1 Branch dose, Fri01/30/21 at 2130, STAT melatonin 2020-0 Yes 6mg 6 mg, Univers (MELATIN) 8-11 [...] f 270-150 mL) 19:29: Tue [place] injection 01/30/21 at [place] [address], Branch Until Discontinu ed, Routine, Intra-op iodixanoL 0 Yes PRN, Univers (VISIPAQUE 8-10 Starting ity o f 270-150 mL) 19:29: Tue [place] injection 00 01/30/21 at [facility] 1429, Branch Until Discontinu ed, Routine, Intra-op heparin 2020-0 Yes PRN, Univers 1,000 8-10 Starting ity of unit/mL 18:26: Tue [place] injection 00 01/30/21 at [facility] 132, Branch Until Discontinu ed, Routine, Intra-op heparin 2020-0 Yes PRN, Univers 1,000 8-10 Starting ity of unit/mL 18:26: Tue [place] injection 01/30/21 at [facility] 1326, Branch Until Discontinu ed, Routine, Intra-op liothyronin 2020-0 Yes 25ug 25 mcg, Uni vers e (CYTOMEL) 8-10 Oral, ity of tablet 25 14:00: DAILY, [place] mcg 00 First dose Medical on [facility] 01/30/21 at 0900, Until Discontinu ed, Routine liothyronin 2020-0 Yes 25ug 25 mcg, Uni vers e (CYTOMEL) 8-10 Oral, ity of tablet 25 14:00: DAILY, [place] mcg 00 First dose Medical on [facility] 01/30/21 at 0900, Until Discontinu ed, Routine glucagon 2020-0 Yes 1mg 1 mg, Univers (GLUCAGEN 8-10 Intramuscu ity of DIAGNOSTIC 03:21: lar, PRN, [place] KIT) 47 Starting Medical injection 1 Fri01/29/21 Br anch mg at 2221, Until Discontinu ed, MICHELLE, Blood Glucose < or = 70 mg/dL and patient is unable to swallow or has mental changes. dextrose 50 0 Yes 25mL 25 mL, Univ ers % in water 8-10 Slow IV ity of (D50W) 03:21: Push, PRN, [place] injection 47 Starting Medica l 25 mL [facility] 01/29/21 Branch at 2221, Until Discontinu ed, MICHELLE, Blood Glucose < or = 70 mg/dL and patient is unable to swallow or has mental status changes. glucagon 0 Yes 1mg 1 mg, Univers (GLUCAGEN 8-10 [...] injection 47 Starting Medica l 25 mL [facility] 01/29/21 Branch at 2221, Until Discontinu ed, MICHELLE, Blood Glucose < or = 70 mg/dL and patient is unable to swallow or has mental status changes. bumetanide 2022020- No 1mg 1 mg, Slow Univers (BUMEX) 01-29 IV Push, ity of injection 1 22:15: 01:24 QAM+PM, [place] mg 00 :22 First dose Medical on Mon Branch 01/29/21 at 1715, Until Discontinu ed, Routine melatonin 2020- No 6mg 6 mg, Univer s (MELATIN) 01-29 Oral, ity of tablet 6 mg 02:24: 01:18 QHSPRN, [place] 11 :41 Starting Medical [place] 01/28/21 Branch at 2124, Until Fri01/30/21 at 2018, Routine, Insomnia HYDROcodone Yes 1{tbl} 1 tablet, Univers -acetaminop 8 Oral, ity of hen (NORCO 15:25: Q4HPRN, [place] 5) 5-325 mg 04 Starting Medi karine tablet 1 [place] 01/28/21 Branc h tablet at 1025, Until Discontinu ed, Routine, Pain (scale 4-6) HYDROcodone Yes 1{tbl} 1 tablet, Univers -acetaminop 8 Oral, ity of hen (NORCO 15:25: Q4HPRN, [place] 5) 5-325 mg 04 Starting Medi karine tablet 1 [place] 01/28/21 Branc h tablet at 1025, Until Discontinu ed, Routine, Pain (scale 4-6) heparin 2020-2020- No 500U/h 500 Univers 25,000 01-28 08-10 Units/hr ity of Units/250 00:15: 22:18 (5 mL/hr), [place] mL 00 :30 IV Medical (Premixed Infusion, Branc h Bag) in D5W CONTINUOUS , Starting 01/27/21 at 1915, Until Fri01/30/21 at 1718 magnesium 2020- No 4g 4 g, IV Univ ers sulfate in 01-2708 Piggyback, it y of water 4 22:30: 00:55 ONCE, 1 [place] gram/50 mL 00 :00 dose, Sat Medi karine (8 %) IV 01/27/21 at Branch Piggyback 4 1730, g Routine phosphorus Yes 250mg 1 tablet Un caesar (K PHOS 01-27 (250 mg), ity of NEUTRAL) 21:30: Oral, TID, [place] as tablet 1 00 First dose Medic al tablet on [facility] 01/27/21 at 1630, Until Discontinu ed, Routine phosphorus 2020-2020- No 250mg 1 tablet U nivers (K PHOS 01-27 (250 mg), ity of NEUTRAL) 21:30: 14:50 Oral, TID, [place] tablet 1 00 :01 First dose Medic al tablet on [facility] 01/27/21 at 1630, Until Discontinu ed, Routine vancomycin Yes 1250mg 1,250 mg, Univers 1250 mg in 01-27 IV ity of NS 250 mL 18:29: [place]back, [place] RTU IV 00 Q24H ABX, Medical Piggyback First dose Bran ch 1,250 mg (after last modificati on) on [facility] 01/27/21 at 1330, Until Discontinu ed, Administer over 90 Minutes
Reason for Anti-Infec tive: Empiric Therapy for Suspected Infection< br>Empiric Therapy Site: Urine
D uration of therapy: 72 hours vancomycin 2020- No 1250mg 1,250 mg, Univers 1250 mg in 01-27 IV ity of NS 250 mL 18:29: 13:14 Piggyback, [place] RTU IV 00 :23 Q24H ABX, Medical Piggyback First dose Bran ch 1,250 mg (after last modificati on) on [facility] 01/27/21 at 1330, Until Discontinu ed, Administer over 90 Minutes
Reason for Anti-Infec tive: Empiric Therapy for Suspected Infection< br>Empiric Therapy Site: Urine
D uration of therapy: 72 hours polyethylen 2020- No 17g 17 g, Univ ers e glycol 01-27 Oral, ity of 3350 powder 09:30: 09:48 ONCE, 1 [place] 17 g 00 :00 dose, [facility] 01/27/21 at Branch 0430, Routine ipratropium Yes 3mL 3 mL, Unive rs -albuteroL 01-27 Inhalation ity of (DUONEB) 01:00: , Q4H, [place] 0.5 mg-3 00 First dose Medic al mg(2.5 mg (after Branch base)/3 mL last nebulizer modificati solution 3 on) on Fri01/26/21 at 1999, Until Discontinu ed, Routine ipratropium Yes 3mL 3 mL, Unive rs -albuteroL 01-27 Inhalation ity of (DUONEB) 01:00: , Q4H, [place] 0.5 mg-3 00 First dose Medic al mg(2.5 mg (after Branch base)/3 mL last nebulizer modificati solution 3 on) on Fri01/26/21 at 1999, Until Discontinu ed, Routine bumetanide 2020- No 1mg 1 mg, Slow Univers (BUMEX) 01-2709 IV Push, ity of injection 1 01:00: 15:40 Q12H, [place] mg 00 :02 First dose Medical (after Branch last reorder) on Fri01/26/21 at 1999, Until Discontinu ed, Routine ertapenem Yes 1000mg 1,000 mg, U nivers (INVANZ) 01-26 IV ity of 1,000 mg in 16:30: [place], [place] NaCl 0.9% 00 Q24H ABX, Medic al (NS) 50 mL First dose Bra nch MINI-BAG on Fri01/26/21 at 1130, Until Discontinu ed, Administer over 30 Minutes, 50 mL
Reas on for Anti-Infec tive: Documented Infection< br>Documen josé antonio Infection Site: Blood
D uration of Therapy: 10 days
Re stricted use approved by: ADC PROVIDER ertapenem No 1000mg 1,000 mg, Univers (INVANZ) 01-26 08-15 IV ity of 1,000 mg in 16:30: 16:52 Piggyback, [place] NaCl 0.9% 00 :04 Q24H ABX, Medic al (NS) 50 mL First dose Bra nch MINI-BAG on Fri01/26/21 at 1130, Until Discontinu ed, Administer over 30 Minutes, 50 mL
Reas on for Anti-Infec tive: Documented Infection< br>Documen josé antonio Infection Site: Blood
D uration of Therapy: 10 days
Re stricted use approved by: ADC PROVIDER potassium 2020- No 10meq 10 mEq, IV Univers chloride in 01-26 Piggyback, i ty of water 10 04:30: 04:26 ONCE, 1 [place] mEq/100 mL 00 :00 dose, [facility] Medi karine RTU 10 mEq 01/25/21 at [facility] 2330, Administer over 60 Minutes, 100 mL pantoprazol Yes 40mg 40 mg, Univ ers e 01-26 Slow IV ity of (PROTONIX) 01:00: Push, [place] injection 00 Q12H, Medical 40 mg First dose Branch on Gaby 01/25/21 at 1999, Until Discontinu ed lactobacill 2020- No .5mg 0.5 mg, Un caesar 01-26 Oral, BID, ity of acidophilus 01:00: 00:59 14 doses, [place] tablet 0.5 00 :00 First dose Med ical mg on [facility] Branch 01/25/21 at 1999, Last dose on [facility]y 02/01/21 at 0800, Routine pantoprazol 2020- No 40mg 40 mg, Uni vers e 01-26 Slow IV ity of (PROTONIX) 01:00: 06:03 Push, [place] injection 00 :17 Q12H, Medical 40 mg First dose Branch on [facility] 01/25/21 at 1999, Until Discontinu ed lactobacill 2020- No .5mg 0.5 mg, Un caesar 01-26 Oral, BID, ity of acidophilus 01:00: 14:22 14 doses, [place] tablet 0.5 00 :00 First dose Med ical mg on [facility] Branch 01/25/21 at 1999, Last dose on Gaby 02/01/21 at 0800, Routine magnesium 2020- No 4g 4 g, IV Univ ers sulfate in 01-26 Piggyback, it y of water 4 01:00: 01:46 ONCE, 1 [place] gram/50 mL 00 :00 dose, [facility] karine (8 %) IV 01/25/21 at Branch Piggyback 1999, g Routine KCL Yes 40meq 40 mEq, Univers (KLOR-CON 01-26 Oral, BID, ity of M20) tablet 00:00: First dose [place] 40 mEq 00 on Gaby Medical 01/25/21 at Branch 1900, Until Discontinu ed, Routine KCL 2020- No 40meq 40 mEq, Univers (KLOR-CON 01-26 Oral, BID, ity of M20) tablet 00:00: 18:47 First dose [place] 40 mEq 00 :42 on Gab[facility] Medical 01/25/21 at Branch 1900, Until Discontinu ed, Routine potassium 2020- No 10meq 10 mEq, IV Univers chloride in 01-26 Piggyback, i ty of water 10 00:00: 02:46 Q1H, 2 [place] mEq/100 mL 00 :00 doses, Medical RTU 10 mEq First dose Bra nch on [facility] 01/25/21 at 1915, Last dose on [facility] 01/25/21 at 2000, Administer over 60 Minutes, 100 mL meropenem 2020- No 1g 1 g, IV Univ ers (MERREM) 1 01-25 Piggyback, it y of g in NaCl 19:30: 15:24 Q8H ABX, [place] as 0.9% (NS) 00 :57 First dose Medi karine 100 mL on Gaby [place] MINI-BAG 01/25/21 at 1430, Until Discontinu ed, Administer over 60 Minutes, 100 mL
Rest ricted use approved by: ADC PROVIDER<b r>Reason for Anti-Infec tive: Documented Infection< br>Documen josé antonio Infection Site: Blood
D uration of Therapy: 10 days morpHINE Yes 2mg 2 mg, Slow Uni vers injection 2 01-25 IV Push, ity of mg 17:45: Q4Sperry, [place] 05 Starting [facility] 01/25/21 [place] at 1245, Until Discontinu ed, Routine, Pain (scale 4-6) morpHINE 2020- No 2mg 2 mg, Slow Un caesar injection 2 01-2514 IV Push, ity of mg 17:45: 17:13 Q4HPRNHallock, [place] 05 :36 Starting Medical [facility] 01/25/21 Branch at 1245, Until 02/03/21 at 1213, Routine, Pain (scale 4-6) bumetanide 2020- No .5mg/h 0.5 mg/hr Univers (BUMEX) 10 01-25 (2.5 ity of mg in D5W 14:30: 15:15 mL/hr), IV [place] 50 mL 00 :21 Infusion, Medical infusion CONTINUOUS Branc h , Starting [facility] 01/25/21 at 0930 aspirin Yes 81mg 81 mg, Univers chewable 01-25 Oral, ity of tablet 81 14:00: DAILY, [place] mg 00 First dose Medical on [facility] 01/25/21 at 0900, Until Discontinu ed, Routine amiodarone Yes 200mg 200 mg, Uni vers (PACERONE) 01-25 Oral, ity of tablet 200 14:00: DAILY, [place] mg 00 First dose Medical on [facility] 01/25/21 at 0900, Until Discontinu ed, Routine aspirin Yes 81mg 81 mg, Univers chewable 01-25 Oral, ity of tablet 81 14:00: DAILY, [place] mg 00 First dose Medical on [facility] 01/25/21 at 0900, Until Discontinu ed, Routine amiodarone Yes 200mg 200 mg, Uni vers (PACERONE) 01-25 Oral, ity of tablet 200 14:00: DAILY, [place] mg 00 First dose Medical on [facility] 01/25/21 at 0900, Until Discontinu ed, Routine bumetanide 2020- No 1mg 1 mg, Slow Univers (BUMEX) 01-25 IV Push, ity of injection 1 13:15: 13:49 ONCE, 1 [place] mg 00 :00 dose, [facility] 01/25/21 at Branch 0815, Routine ipratropium 2020- No 3mL 3 mL, Univ ers -albuteroL 01-25 Inhalation it y of (DUONEB) 13:00: 22:48 , QID, [place] 0.5 mg-3 00 :59 First dose Medic al mg(2.5 mg on Gaby [facility])/3 mL 01/25/21 at nebulizer 0800, solution 3 Until mL Discontinu ed, Routine morpHINE 2020-0 2020- No 2mg 2 mg, Slow Un caesar injection 2 01-25 IV Push, ity of mg 12:00: 11:08 ONCE, 1 [place] 00 :00 dose, [facility] Medical 01/25/21 at [place] 0700, Routine methylPREDN 2020-0 2020- No 125mg 125 mg, U nivers ISolone 01-25 Intravenou ity o f sodium 04:15: 04:45 s, ONCE, 1 [place] succinate 00 :00 dose, Fri Medic al (SOLU-MEDRO 01/24/[address] [facility] L) 125 mg 2315, in NaCl Administer 0.9% (NS) over 30 piggyback Minutes, 100 mL ipratropium 2020-0 Yes 3mL 3 mL, Unive rs -albuteroL 805 Inhalation ity of (DUONEB) 03:03: , QIDPRN, [place] 0.5 mg-3 44 Starting Medical mg(2.5 mg Fri01/24/21 Bran ch base)/3 mL at 2203, nebulizer Until solution 3 Discontinu mL ed, Routine, Wheezing, Shortness of Breath, Bronchospa sm, Chest tightness ipratropium 2020-0 Yes 3mL 3 mL, Unive rs -albuteroL 805 Inhalation ity of (DUONEB) 03:03: , QIDPRN, [...] First dose [place] mg 00 on Fri [facility] 01/24/21 at [place] 1999, Until Discontinu ed, Routine gabapentin 2020-0 Yes 600mg 600 mg, Uni vers (NEURONTIN) 8-05 Oral, TID, it y of capsule 600 01:00: First dose [place] mg 00 on Fri [facility] 01/24/21 at Branch 2000, Until Discontinu ed, Routine aspirin 81 Yes 81mg Take 81 mg U nivers mg chewable 8-05 by mouth ity of tablet 00:53: daily. [address] gabapentin Yes 600mg Take 600 Un caesar 600 mg 8-05 mg by ity of tablet 00:53: mouth 4 [place] [id number] (four) Medical times Branch daily. enalapril 5 Yes 5mg Take 5 mg U nivers mg tablet 8-05 by mouth ity of 00:53: daily. [address] Hydrocodone Yes 7.5{tbl Take 7.5 Univers -Acetaminop 8-05 } tablets by it y of hen 7.5-300 00:53: mouth [place] mg tablet 17 every 6 Medical (six) Branch hours as needed for Pain (scale 4-6). rivaroxaban Yes 20mg Take 20 mg Univers (XARELTO) 8-05 by mouth ity of 20 mg 00:53: daily. [facility] 17 [facility] liothyronin Yes 25ug Take 25 Uni vers e 25 mcg 8-05 mcg by ity of tablet 00:53: mouth [place] 17 daily. [facility] amiodarone Yes 200mg Take 200 Un caesar 200 mg 8-05 mg by ity of tablet 00:53: mouth [place] 17 daily. [facility] ceFEPIme 2020- No 1000mg 1,000 mg, U nivers (MAXIPIME) 01-24 08-05 IV ity of 1,000 mg in 23:30: 18:20 [place], [place] NaCl 0.9% 00 :47 Q12H ABX, Medic al (NS) 50 mL First dose Bra [facility] MINI-BAG on Fri01/24/21 at 1830, Until Discontinu ed, Administer over 30 Minutes, 50 mL
Reas on for Anti-Infec tive: Empiric Therapy for Suspected Infection< br>Empiric Therapy Site: Abdominal< br>Duratio n of therapy: 72 hours loperamide No 4mg 4 mg, Unive rs (IMODIUM 01-24 Oral, ity of A-D) 21:11: 09:53 Q4HPRN, [place] capsule 4 55 :36 Starting Medica l mg [facility] 01/24/21 Branch at 1611, Until Fri01/31/21 at 0453, Routine, Diarrhea iopamidol 2020- No [id number] 120mL 120 mL, Univers (ISOVUE 01-24 Intravenou ity o f 370-500 mL) 18:15: 17:00 s, ONCE, 1 [place] injection 00 :00 dose, Fri Medic al 120 mL 01/24/21 at Branch 1315, Routine diltiazem 2020- No 60mg 60 mg, Unive rs (CARDIZEM) 01-24 Oral, Q6H, it y of tablet 60 17:00: 11:26 First dose [place] mg 00 :48 on [facility] Medical 01/24/21 at Branch 1200, Until Discontinu ed, Routine digoxin No .5mg 500 mcg Univer s (LANOXIN) 01-24 (0.5 mg), ity of injection 16:30: 16:18 Slow IV [place] 500 mcg 00 :00 Push, Medical ONCE, 1 [place] dose, [facility] 01/24/21 at 1130, STAT amiodarone 2020- No .5mg/mi 0.5 mg/min Univers (CORDARONE) 01-24 n (16.6667 ity of 900 mg in 14:30: 08:29 mL/hr, [place] D5W 500 mL 00 :00 rounded to Med ical infusion 16.67 Branch mL/hr), IV Infusion, CONTINUOUS , Starting [facility] 01/24/21 at 0930, For 18 hours
A ll amiodarone infusions must be administer ed using a 0.22 micron in line filter. Administer via central line if available. Amiodarone infusions with concentrat ions > 2 mg/mL must be administer ed via central line.
bumetanide No 1.25mg 1.25 mg, Univers (BUMEX) 01-24 Slow IV ity of injection 08:00: 07:03 Push, [place] 1.25 mg 00 :00 ONCE, 1 Medical dose, [facility] Branch 01/24/21 at 0300, STAT HYDROcodone 2020- No 1{tbl} 1 tablet, Univers -acetaminop 01-24 Oral, ONCE i ty of hen (NORCO) 07:07: 07:08 NOW, 1 [place] as 10-325 mg 00 :00 dose, Wed Medic al tablet 1 01/24/21 at [place] tablet 0215, Routine NORepinephr 2020- No .05ug/k 0.05-1.5 Univers ine 16 mg [...] maximum allowed dose, contact prescriber .
digoxin 2020- No .25mg 250 mcg Unive rs (LANOXIN) 01-23 (0.25 mg), ity of injection 22:15: 21:12 Slow IV [place] 250 mcg 00 :00 Push, Medical ONCE, 1 [place] dose, Fri01/23/21 at 1715, STAT diltiazem 2020- No 10mg 10 mg, IV Un caesar (CARDIZEM 01-23 Push, ity of IV) 19:45: 18:36 ONCE, 1 [place] injection 00 :00 dose, Fri Medic al 10 mg 01/23/21 at [place] 1445, STAT
[facility] : ARMANDO WALLS vancomycin 2020- No 1000mg 1,000 mg, Univers (VANCOCIN) 01-23 08- IV ity of 1,000 mg in 19:00: 21:12 Piggyback, [place] NaCl 0.9% 00 :19 Q12H ABX, Medic al (NS) 250 mL First dose Br anch VIAL-MATE (after IV last piggyback modificati on) on Fri01/23/21 at 1400, Until Discontinu ed, Administer over 60 Minutes, 250 mL
Reas on for Anti-Infec tive: Empiric Therapy for Suspected Infection< br>Empiric Therapy Site: Urine
D uration of therapy: 72 hours rivaroxaban No 20mg 20 mg, Uni vers (XARELTO) 01-23 Oral, ity of tablet 20 19:00: 18:46 ONCE, 1 [place] mg 00 :00 dose, [facility] 01/23/21 at [place] [address], Routine liothyronin No 25ug 25 mcg, Un caesar e (CYTOMEL) 01-23 Oral, ity of tablet 25 19:00: 18:46 ONCE, 1 [place] mcg 00 :00 dose, [facility] 01/23/21 at [place] [address], Routine atorvastati 2020- No 40mg 40 mg, Uni vers n (LIPITOR) 01-23 Oral, ity of tablet 40 19:00: 18:45 ONCE, 1 [place] mg 00 :00 dose, [facility] 01/23/21 at [place] [address], Routine aspirin 2020- No 81mg 81 mg, Univers chewable 01-23 Oral, ity of tablet 81 19:00: 18:54 ONCE, 1 [place] mg 00 :00 dose, [facility] 01/23/21 at [place] [address], Routine piperacilli 2020- No 2.25g 2.25 g, IV Univers n-tazobacta 01-23 Piggyback, i ty of m (ZOSYN) 15:00: 22:25 Q8H ABX, [place] as 2.25 g in 00 :43 First dose Medi karine NaCl 0.9% on Fri (NS) 100 mL 01/23/21 at MINI-BAG 1000, Until Discontinu ed, Administer over 30 Minutes, 100 mL
Reas on for Anti-Infec tive: Empiric Therapy for Suspected Infection< br>Empi roseann Therapy Site: Urine
D uration of therapy: 72 hours NaCl 0.9% 2020- No 500mL at 999 [facility] ers (NS) bolus 01-23 mL/hr, 500 it y of infusion 12:45: 14:30 mL, IV [place] 500 mL 00 :00 Piggyback, Medical ONCE, 1 Branch dose, 01/23/21 at 0745, STAT amiodarone 2020- No .5mg/mi 0.5 mg/min Univers (CORDARONE) 01-23 n (16.6667 ity of 900 mg in 11:45: 05:44 mL/hr, [place] D5W 500 mL 00 :00 rounded to Med ical infusion 16.67 Branch mL/hr), IV Infusion, CONTINUOUS , Starting 01/23/21 at 0645, For 18 hours
A ll [...] as 5) 5-325 mg 00 :00 dose, Tu Med ical tablet 1 01/23/21 at Branch tablet 0645, MICHELLE NaCl 0.9% 2020- No 500mL at 999 [facility] ers (NS) bolus 01-23 mL/hr, 500 it y of infusion 08:00: 09:30 mL, IV [place] 500 mL 00 :00 Piggyback, Medical ONCE, 1 Branch dose, 01/23/21 at 0300, STAT NORepinephr 2020- No .05ug/k 0.05-1.5 Univers ine 4 mg in 01-23 g/min mcg/kg/min ity of 0.9% NaCl 07:00: 01:27 ?149.7 kg [place] 250 mL 28 :04 (28.0688-8 Medical infusion 42.0625 Branch RTU mL/hr, rounded to 28.07-842. 06 mL/hr), IV Infusion, TITRATE, MAP Goal > or = 65 mmHg, Starting 01/23/21 at 0200
In itiate titration at 0.05 [...] of NS 500 mL 07:00: 08:07 from [place] IV 00 :00 2,245.5 mg Medical Piggyback = 15 mg/kg Bran RTU 1,500 ?149.7 mg kg), IV Piggyback, ONCE, 1 dose, 01/23/21 at 0200, Administer over 90 Minutes
Reason for Anti-Infec tive: Documented Infection< br>Documen josé antonio Infection Site: Skin / Soft Tissue
Duration of Therapy: 7 days piperacilli 2020- No 3.375g 3.375 g, Univers n-tazobacta 01-23 IV ity of m (ZOSYN) 07:00: 06:58 [place]back, [place] 3.375 g in 00 :00 ONCE, 1 Medica l NaCl 0.9% dose, Tue Branc h (NS) 100 mL 01/23/21 at MINI-BAG 0200, Administer over 30 Minutes, 100 mL
Reas on for Anti-Infec tive: Documented Infection< br>Documen josé antonio Infection Site: Skin / Soft Tissue
Duration of Therapy: 7 days magnesium 2020- No 2g 2 g, IV Univ ers sulfate in 01-23 Piggyback, it y of water 2 06:45: 06:59 ONCE, 1 [place] gram/50 mL 00 :00 dose, Tue Medi karine (4 %) 01/23/21 at Branch infusion 2 0145, g Routine furosemide 2020- No 40mg 40 mg, IV U nivers (LASIX) 01-23 Push, ity of injection 06:15: 05:21 ONCE, 1 [place] 40 mg 00 :00 dose, [facility] 01/23/21 at [place] 0115, MICHELLE amiodarone 2020- No 1mg/min 1 mg/min Univers (CORDARONE) 01-23 (33.3333 ity of 900 mg in 05:45: 11:44 mL/hr, [place] D5W 500 mL 00 :00 rounded to Med ical infusion 33.33 [place] mL/hr), IV Infusion, CONTINUOUS , Starting [facility] 01/23/21 at 0045, For 6 hours
A [...] 1 [place] mg 00 :00 dose, [facility] 01/23/21 at [place] 0030, [facility] amiodarone 2020- No 150mg 150 mg, IV Univers 150 mg/100 01-23 Piggyback, it y of mL 05:30: 05:00 ONCE, 1 [place] (NEXTERONE) 00 :00 dose, [facility] Med ical RTU 01/23/21 at [place] infusion 0030, 150 mg Administer over 10 [...] Hospita tablet 07 daily. l aspirin 81 Yes 81mg QD Chew 81 mg M ethodi mg chewable 2-[address] tablet 20:24: Hospita 07 l gabapentin Yes 600mg Q.25D Take 600 M ethodi (NEURONTIN) 2-[address] 600 mg 20:24: mouth 4 Hospita tablet 07 (four) l times a day. HYDROcodone Yes 1{tbl} Q6H Take 1 Me thodi [...] 20:24: daily. Hospita tablet 07 l diclofenac Yes 2g [id number] Apply 2 g [facility] (VOLTAREN) 2-[id number] 1 % gel 20:24: 3D 3 (three) Hospi ta 07 times a l day. Shoulder zinc oxide Yes 1{appli Q.5D Apply 1 M ethodi 20 % 2-19 cation} applicatio st ointment 20:24: n Hospita 07 topically l 2 (two) times a day. Mucosal wound of penis and scrotum acetaminoph Yes 650mg Q4H Take 650 M ethodi [...] for l packet constipati on. traMADoL [place] [id number] 50mg Q4H Take 50 mg [facility] (ULTRAM) 50 2-[address] mg tablet 20:24: every 4 Hospi ta 07 (four) l hours as needed for moderate pain (scale(4-6 )) .acute pain. DAPTOmycin 2020- No 700mg QD Infuse 700 [facility] 350 mg 08-11 03-[address] recon soln 00:00: 05:59 venous Hosp anjelica injection 00 :00 catheter l daily for 15 days. predniSONE 2020- No 40mg QD Take 2 Meth romulo (DELTASONE) 07-[address] 20 mg 00:00: 05:59 (40 mg Hospita tablet 00 :00 total) by l mouth daily for 3 days. enalapril 2020- No 5mg QD Take 5 mg [facility] (VASOTEC) 5 07-[address] MG tablet 21:14: 00:00 daily. Hospi ta 58 :00 l doxycycline 2020- No 100mg Q.5D Take 1 Me [facility] (VIBRAMYCIN 07-[address] ) 100 MG 00:00: 05:59 (100 mg Hospi ta capsule 00 :00 total) by l mouth 2 (two) times a day with meals for 5 days. aspirin 81 Yes 81mg Take 81 mg U nivers mg chewable 1-28 by mouth ity of tablet 02:59: daily. [address] Branch gabapentin Yes 600mg Take 600 Un caesar 600 mg 1-28 mg by ity of tablet 02:59: mouth 4 [place] [address] (four) Medical times Branch daily. enalapril 5 Yes 5mg Take 5 mg U nivers mg tablet 1-28 by mouth ity of 02:59: daily. [address] Branch Hydrocodone 0 Yes 7.5{tbl Take 7.5 Univers -Acetaminop 1-28 } tablets by it y of hen 7.5-300 02:59: mouth [place] mg tablet 42 every 6 Medical (six) Branch hours as needed for Pain (scale 4-6). rivaroxaban Yes 20mg Take 20 mg Univers (XARELTO) 1-28 by mouth ity of 20 mg 02:59: daily. [address] Branch liothyronin 2021-0 Yes 25ug Take 25 Uni vers e 25 mcg 1-28 mcg by ity of tablet 02:59: mouth [place] 42 daily. Medical Branch amiodarone Yes 200mg Take 200 Un caesar 200 mg 1-28 mg by ity of tablet 02:59: mouth [place] 42 daily. Medical Branch aspirin 81 Yes 81mg Take 81 mg U nivers mg chewable 1-28 by mouth ity of tablet 02:59: daily. [place] [address] Medical Branch gabapentin Yes 600mg Take 600 Un caesar 600 mg 1-28 mg by ity of tablet 02:59: mouth 4 [place] [address] (four) Medical times Branch daily. enalapril 5 Yes 5mg Take 5 mg U nivers mg tablet 1-28 by mouth ity of 02:59: daily. [address] Branch Hydrocodone Yes 7.5{tbl Take 7.5 Univers -Acetaminop 1-28 } tablets by it y of hen 7.5-300 02:59: mouth [place] mg tablet 42 every 6 Medical (six) Branch hours as needed for Pain (scale 4-6). rivaroxaban Yes 20mg Take 20 mg Univers (XARELTO) 1-28 by mouth ity of 20 mg 02:59: daily. [address] Branch liothyronin Yes 25ug Take 25 Uni [...] by mouth ity of tablet 02:59: daily. [address] Branch gabapentin Yes 600mg Take 600 Un caesar 600 mg 1-28 mg by ity of tablet 02:59: mouth 4 [place] [address] (four) Medical times Branch daily. enalapril 5 Yes 5mg Take 5 mg U nivers mg tablet 1-28 by mouth ity of 02:59: daily. [address] Branch Hydrocodone Yes 7.5{tbl Take 7.5 [...] 00 daily. l tablet atorvastati 2020- No [id number] 40mg Take 1 Univers n 40 mg 07-19-28 tablet by ity of tablet 00:00: 04:59 mouth [place] 00 :00 every Medical evening Branch for 90 days. metoprolol 2020- No [id number] 100mg Take 1 Univers tartrate 1-27 04-28 tablet by ity o f 100 mg 00:00: 04:59 mouth 2 [place] tablet 00 :00 (two) Medical times Branch daily for 90 days. atorvastati 2020- No [id number] 40mg Take 1 Univers n 40 mg -17 10-28 tablet by ity of tablet 00:00: 04:59 mouth [place] 00 :00 every Medical evening Branch for 90 days. metoprolol 2020- No [id number] 100mg Take 1 Univers tartrate 07-19-28 tablet by ity o f 100 mg 00:00: 04:59 mouth 2 [place] tablet 00 :00 (two) Medical times Branch daily for 90 days. ciprofloxac 2020- No [id number] 500mg Take 1 Univers in HCl 500 07-19-04 tablet by ity of mg tablet 00:00: 05:59 mouth [place] 00 :00 every 12 Medical (twelve) Branch hours for 7 days. ciprofloxac 2020- No [id number] 500mg Take 1 Univers in HCl 500 07-19-04 tablet by ity of mg tablet 00:00: 05:59 mouth [place] 00 :00 every 12 Medical (twelve) Branch hours for 7 days. ciprofloxac No 500mg Take 500 Methodi in (CIPRO) 07-19 02-[address] 500 MG 00:00: 00:00 mouth. [facility] tablet 00 :00 l metoprolol No 75mg 75 mg, Univ ers tartrate 07-18- Oral, BID, ity of (LOPRESSOR) 02:00: 21:52 First dose [place] tablet 75 00 :57 (after Medical mg last Branch modificati on) on Fri07/17/20 at 2000, Until Discontinu ed, Routine ciprofloxac No 500mg 500 mg, U nivers in HCl 07-17- Oral, ity of (CIPRO) 15:30: 11:59 Q12HA2, 20 Dean as tablet 500 00 :00 doses, Medical mg First dose Branch (after last modificati on) on Fri07/17/20 at 0930, Last dose on Fri07/26/20 at 1800, MICHELLE
Re ason for Anti-Infec tive: Documented Infection< br>Documen josé antonio Infection Site: Blood
D uration of Therapy: 14 days diphenhydrA Yes 25mg 25 mg, Univ ers MINE 07-16 Oral, ity of (BENADRYL) 19:44: Q4HPRN, [place] tablet 25 47 Starting Medica l mg Sun Branch 07/16/20 at 1344, Until Discontinu ed, Routine, itching enoxaparin Yes 1mg/kg 150 mg Uni vers (LOVENOX) 1-24 (rounded ity of injection 02:00: [place] 149.7 [place] 150 mg 00 mg = 1 Medical mg/kg Branch ?149.7 kg), Subcutaneo us, Q12H, First dose on 07/15/20 at 2000, Until Discontinu ed, Routine heparin 2020- No 1000U/h 1,000 Unive rs 25,000 07-14-23 Units/hr ity of Units/250 22:46: 06:00 (10 [place] mL in NS 33 :00 mL/hr), IV Medic al Infusion, Branch TITRATE, Parameters in Admin. Instr., Starting 07/14/20 at 1646, For 1 day
CAU TION - If LMWH given in ER, AVOID bolus and start dose/drip 12hrs after ER dosage.&nb sp; M ust program rate using [employer] Infusion Pump Guardian Heparin Programmin g. [...] therapeuti c levels are reached.<b r> metoprolol 2020- No 50mg 50 mg, Univ ers tartrate 07-14 Oral, BID, ity of (LOPRESSOR) 14:00: 22:19 First dose [place] tablet 50 00 :57 (after Medical mg last Branch modificati on) on Fri07/14/20 at 0800, Until Discontinu ed, Routine morpHINE No 2mg 2 mg, Slow Un caesar injection 2 07-14 IV Push, ity of mg 13:34: 14:47 ONCE NOW, [place] 00 :00 1 dose, Medical Fri Branch [...] ity of unit/mL, 10 05:59: , Starting [place] mL vial) 52 Gaby Medical for 07/13/20 at Branch Rebolusing [id number], Until Discontinu ed, Routine
Dosing based on aPTT testing parameters (refer to continuous heparin drip order).
ceFEPIme 2020- No 2000mg 2,000 mg, U nivers (MAXIPIME) 07-14 IV ity of 2,000 mg in 04:15: 15:22 Piggyback, [place] NaCl 0.9% 00 :29 Q8H ABX, Medica [...] :00 Infusion, Medical ONCE, 1 Branch dose, [facility] 07/13/20 at 2145, STAT metoprolol 2020- No 25mg 25 mg, Univ ers (LOPRESSOR) 07-14 Oral, ity of 10 mg/mL 02:59: 03:41 ONCE, 1 [place] oral 00 :00 dose, [facility] Medical suspension 07/13/[address] [facility] 25 mg 2100, Routine metoprolol No 25mg 25 mg, [facility] ers tartrate 07-14 Oral, TID, ity of (LOPRESSOR) 02:00: 02:59 First dose [place] tablet 25 00 :25 on [facility] Medical mg 07/13/20 at Branch 2000, Until Discontinu ed, Routine lactated No 1000mL at 999 Univ ers ringers IV 07-13 mL/hr, ity of infusion 23:13: 23:43 1,000 mL, [place] as 1,000 mL 00 :00 IV Medical Infusion, [place] ONCE, 1 dose, [facility] 07/13/20 at 1715, STAT metoprolol 2020- No 5mg 5 mg, Slow Univers (LOPRESSOR) 07-13 IV Push, ity of injection 5 23:04: 23:43 ONCE NOW, [place] mg 00 :00 1 dose, Medical [facility] 07/13/20 at 1715, Routine atorvastati Yes 40mg 40 mg, Univ ers n (LIPITOR) 07-13 Oral, QPM, it y of tablet 40 23:00: First dose [place] mg 00 on [facility] 07/13/20 at Branch 1700, Until Discontinu ed, [...]
D uration of Therapy: 7 days metoprolol No 5mg 5 mg, Slow Univers (LOPRESSOR) 07-13 IV Push, ity of injection 5 23:00: 22:25 ONCE NOW, [place] mg 00 :00 1 dose, Medical [place] Branch 07/13/20 at 1700, Routine perflutren 2020- No 2mL 2 mL, IV Un caesar lipid 07-13 Push, ity of microsphere 21:15: 18:00 ONCE, 1 [place] 00 :[place] dose, [facility] Medical (DEFINITY) 07/13/20 at [facility] injection 2 1515, mL Routine ipratropium Yes 2{puff} 2 Puff, Univers (ATROVENT 07-13 Inhalation ity of HFA) 20:35: , Q6H, [place] inhaler 2 00 First dose Medi karine Puff (after Branch last modificati on) on Gaby 07/13/20 at 1445, Until Discontinu ed, Routine
Is this order for a patient with suspected or confirmed COVID-19 infection? Yes metoprolol 2020- No 5mg 5 mg, Slow Univers (LOPRESSOR) 07-13 IV Push, ity of injection 5 20:25: 21:31 ONCE NOW, [place] mg 00 :00 1 dose, Medical [place] Branch 07/13/20 at 1430, Routine lactated 2020- No 1000mL at 125 Univ ers ringers IV 07-13 mL/hr, ity of infusion 16:45: 04:44 1,000 mL, [place] as 1,000 mL 00 :00 IV Medical Infusion, Branch CONTINUOUS , Starting Gaby 07/13/20 at 1045, Until Gaby 07/13/20 at 2244, Routine HYDROcodone 2021-0 Yes 1{tbl} 1 tablet, Univers -acetaminop 07-13 Oral, ity of hen (NORCO) 15:35: Q6HPRN, [place] as 10-325 mg 03 Starting Medica l tablet 1 [facility] tablet 07/13/20 at 0935, Until Discontinu ed, Pain (scale 4-6) liothyronin 0 Yes 25ug 25 mcg, Uni vers e (CYTOMEL) 07-13 Oral, ity of tablet 25 15:00: DAILY, [place] mcg 00 First dose Medical on [facility] 07/13/20 at 0900, Until Discontinu ed, Routine aspirin Yes 81mg 81 mg, Univers chewable 07-13 Oral, ity of tablet 81 15:00: DAILY, [place] mg 00 First dose Medical on [facility] 07/13/20 at 0900, Until Discontinu ed, Routine amiodarone Yes 200mg 200 mg, Uni vers (PACERONE) 07-13 Oral, ity of tablet 200 15:00: DAILY, [place] mg 00 First dose Medical on [facility] 07/13/20 at 0900, Until Discontinu ed, Routine nystatin Yes Topical, Unive rs (NYSTOP) 07-13 BID, First ity o f powder 14:00: dose on [place] 00 [facility] 07/13/20 at Branch 0800, Until Discontinu ed, Routine gabapentin 2020- No 600mg 600 mg, Un caesar (NEURONTIN) 07-13 Oral, QID, i ty of tablet 600 14:00: 15:33 First dose [place] mg 00 :05 on [facility] 07/13/20 at Branch 0800, Until Discontinu ed, Routine traMADoL 0 2020- No 50mg 50 mg, Univer s (ULTRAM) 07-13 Oral, ity of tablet 50 08:53: 08:52 Q8HPRN, [place] mg 34 :34 Starting Medical [facility] 07/13/20 at 0253, Until 07/15/20 at 0252, Routine, Pain (scale 4-6) acetaminoph 0 Yes 650mg 650 mg, Un caesar en 07-13 Oral, ity of (TYLENOL) 08:53: Q6HPRN, [place] tablet 650 27 Starting Medic al mg Gaby Branch 07/13/20 at 0253, Until Discontinu ed, Routine, Pain (scale 1-3) ibuprofen 2020- No 600mg 600 mg, Uni vers (IBU) 07-13 Oral, ity of tablet 600 03:45: 02:44 ONCE, 1 [place] as mg 00 :00 dose, Fri Medical 07/12/20 at Branch 2145, MICHELLE furosemide 2020- No 40mg 40 mg, IV U nivers (LASIX) 07-13 Push, ity of injection 03:00: 02:01 ONCE, 1 [place] 40 mg 00 :00 dose, Fri Medical 07/12/20 at Branch 2100, MICHELLE heparin 2020- No 1000U/h 1,000 Unive rs 25,000 07-13 Units/hr ity of Units/250 02:47: 10:04 (10 [place] mL 47 :43 mL/hr), IV Medical (Premixed Infusion, [facility] h Bag) in TITRATE, 0.45 % NS [...] Rang e, Dosing and Testing: &nbs p;FOR [place], [facility] [place], AND [facility] ONLY - aPTT < [...] INITIAL BOLUS OR INITIAL INFUSION RATE.
acetaminoph No 650mg 650 mg, U nivers en 07-13 Oral, ity of (TYLENOL) 02:30: 01:26 ONCE, 1 [place] tablet 650 00 :00 dose, Fri Medi karine mg 07/12/20 at Branch 2030, MICHELLE NaCl 0.9% 2020- No 1000mL at 999 Uni vers (NS) bolus 07-12 mL/hr, ity of infusion 23:30: 02:00 1,000 mL, [place] as 1,000 mL 00 :00 IV Medical Infusion, [place] ONCE, 1 dose, Fri07/12/20 at 1730, MICHELLE aspirin 81 Yes 81mg Take 81 mg U nivers mg chewable 1-06 by mouth ity of tablet 05:04: daily. [address] gabapentin Yes 600mg Take 600 Un caesar 600 mg 1-06 mg by ity of tablet 05:04: mouth 4 [place] 04 (four) Medical times Branch daily. enalapril 5 Yes 5mg Take 5 mg U nivers mg tablet -06 by mouth ity of 05:04: daily. [address] Hydrocodone Yes 7.5{tbl Take 7.5 Univers -Acetaminop 1-06 } tablets by it y of hen 7.5-300 05:04: mouth [place] mg tablet 04 every 6 Medical (six) Branch hours as needed for Pain (scale 4-6). rivaroxaban Yes 20mg Take 20 mg Univers (XARELTO) 1-06 by mouth ity of 20 mg 05:04: daily. [address] liothyronin Yes 25ug Take 25 Uni vers e 25 mcg 1-06 mcg by ity of tablet 05:04: mouth [place] 04 daily. [facility] Branch amiodarone Yes 200mg Take 200 Un caesar 200 mg 1-06 mg by ity of tablet 05:04: mouth [place] 04 daily. [facility] Branch acidophilus Yes [id number] 1g Take 1 Univers 100 million 1-05 tablet by ity of cell tablet 00:00: mouth 2 [place] as 00 (two) Medical times Branch daily. acidophilus 2020-0 Yes [id number] 1g Take 1 Univers 100 million 1-05 tablet by ity of cell tablet 00:00: mouth 2 [place] 00 (two) Medical times Branch daily. acidophilus 2020-0 Yes [id number] 1g Take 1 Univers 100 million 1-05 tablet by ity of cell tablet 00:00: mouth 2 [place] as 00 (two) Medical times Branch daily. acidophilus 2020-0 Yes [id number] 1g Take 1 Univers 100 million 1-05 tablet by ity of cell tablet 00:00: mouth 2 [place] 00 (two) Medical times Branch daily. acidophilus 2020-0 Yes [id number] 1g Take 1 Univers 100 million 1-05 tablet by ity of cell tablet 00:00: mouth 2 [place] 00 (two) Medical times Branch daily. acidophilus 2020-0 Yes [id number] 1g Take 1 Univers 100 million 1-05 tablet by ity of cell tablet 00:00: mouth 2 [place] 00 (two) Medical times Branch daily. acidophilus 2020-0 Yes [id number] 1g Take 1 Univers 100 million 1-05 tablet by ity of cell tablet 00:00: mouth 2 [place] 00 (two) Medical times Branch daily. acidophilus 2020-0 Yes [id number] 1g Take 1 Univers 100 million 1-05 tablet by ity of cell tablet 00:00: mouth 2 [place] 00 (two) Medical times Branch daily. acidophilus 2020-0 Yes [id number] 1g Take 1 Univers 100 million 1-05 tablet by ity of cell tablet 00:00: mouth 2 [place] 00 (two) Medical times Branch daily. acidophilus 2020-0 Yes [id number] 1g Take 1 Univers 100 million 1-05 tablet by ity of cell tablet 00:00: mouth 2 [place] 00 (two) Medical times Branch daily. acidophilus 2020-0 Yes [id number] 1g Take 1 Univers 100 million 1-05 tablet by ity of cell tablet 00:00: mouth 2 [place] 00 (two) Medical times Branch daily. NaCl 0.9% 2020- No [id number] 2g Infuse 2 g Univers (NS) PgBk 06-27-16 every 12 ity o f 100 mL with 00:00: 05:59 (twelve) [place] ceFEPIme 2 00 :00 hours for Medi karine gram SolR 2 10 days. Bran ch g NaCl 0.9% 2020- No [id number] 750mg Infuse 750 Univers (NS) SolP 06-27-16 mg every ity o f 250 mL with 00:00: 05:59 12 [place] Vancomycin 00 :00 (twelve) Medic al 750 mg SolR hours for Bra nch 750 mg 10 days. NaCl 0.9% Yes 10mL 10 mL, Univer s (NS) 104 Slow IV ity of injection 18:24: Push, [...] Oral, ity of hen (HYCET) 04:30: Q4HPRN, [place] 7.5-325 00 Starting Medical mg/15 mL [facility] Branch solution 06/22/20 7.5 mg at 2230, Until Discontinu ed, Pain (scale 4-6), Pain (scale 7-10) vancomycin 2020- No 1000mg 1,000 mg, Univers (VANCOCIN) 06-23 IV ity of 1,000 mg in 02:30: 16:55 Piggyback, [place] NaCl 0.9% 00 :00 Q8H ABX, Medica l (NS) 250 mL First dose Br anch VIAL-MATE on [facility] IV 06/22/20 piggyback at 2030, Until Discontinu ed, 250 mL
Reas on for Anti-Infec tive: Documented Infection< br>Documen josé antonio Infection Site: Skin / Soft Tissue
Duration of Therapy: Other (see Comments) rivaroxaban 2019-06 Yes 20mg 20 mg, Univ ers (XARELTO) Oral, ity of tablet 20 15:00: DAILY, [place] mg 00 First dose Medical on [facility] Branch 06/22/20 at 0900, Until Discontinu ed, Routine liothyronin 2019-06 Yes 25ug 25 mcg, Uni vers e (CYTOMEL) Oral, ity of tablet 25 15:00: DAILY, [place] mcg 00 First dose Medical on [facility] Branch 06/22/20 at 0900, Until Discontinu ed, Routine enalapril 2019-06 Yes 5mg 5 mg, Univers (VASOTEC) Oral, ity of tablet 5 mg 15:00: DAILY, [place] 00 First dose Medical on [facility] Branch 06/22/20 at 0900, Until Discontinu ed, Routine ceFEPIme 2019-06 Yes 2g 2 g, IV Univer s (MAXIPIME) Piggyback, ity of 2 g in NaCl 15:00: Q12H ABX, [place] 0.9% (NS) 00 First dose Medi karine 100 mL on [facility] Branch MINI-BAG 06/22/20 at 0900, Until Discontinu ed, 100 mL
Reas on for Anti-Infec tive: Documented Infection< br>Documen josé antonio Infection Site: Skin / Soft Tissue
Duration of Therapy: 10 days aspirin 2019-06- No 81mg 81 mg, Univers chewable 06-25 Oral, ity of tablet 81 15:00: 23:51 DAILY, [place] mg 00 :05 First dose Medical on [facility] Branch 06/22/20 at 0900, Until Discontinu ed, Routine amiodarone 2019-06- No 200mg 200 mg, Un caesar (PACERONE) 06-24 Oral, ity of tablet 200 15:00: 05:04 DAILY, [place] mg 00 :19 First dose Medical on [facility] Branch 06/22/20 at 0900, Until Discontinu ed, Routine benzocaine- 2019-06 Yes 1{lozen 1 Lozenge, [facility] [place] [facility] menthoL ge} Oral, ity of (CEPACOL 03:25: Q4HPRN, [place] SORE THROAT 04 Starting Medi karine (JOHNSON-MEN)) [facility] lozenge 1 06/21/20 Lozenge at 2124, Until Discontinu ed, Routine, Sore throat, cough phenol 2019-06 Yes 1{spray 1 [place], [facility] ers (SORE } Oral, PRN, ity of THROAT 03:24: Starting [place] (PHENOL)) 58 [facility] 1.4 % spray 06/21/20 Bran ch bottle 1 at 2123, [place] Until Discontinu ed, Routine, Sore throat, cough codeine-gua 2019-06 Yes 10mL 10 mL, [facility] ers ifenesin Oral, ity of (ROBITUSSIN 03:24: Q4HPRN, [place] as AC) 10-100 35 Starting Medic al mg/5 mL [facility] solution 10 06/21/20 mL at 2123, Until Discontinu ed, Routine, Cough gabapentin 2019-06 Yes 600mg 600 mg, Uni vers (NEURONTIN) Oral, QID, it y of tablet 600 02:00: First dose [place] mg 00 on [facility] 06/21/20 Branch at 2000, Until Discontinu ed, Routine HYDROcodone 2019-06- No 7.5mg 7.5 mg, U nivers -acetaminop 06-23 Oral, ity of hen (HYCET) 23:19: 04:20 Q6HPRN, [place] 7.5-325 11 :54 Starting Medical mg/15 mL [facility] Branch solution 06/21/20 7.5 mg at 1719, Until Gaby 06/22/20 at 2220, Pain (scale 4-6) albuterol 2019-06 Yes 2{puff} 2 Puff, Un caesar (VENTOLIN) 2-30 Inhalation ity of inhaler 2 22:34: , Q6HPRN, [place] as Puff 14 Starting [facility] 06/21/20 at 1634, Until Discontinu ed, Routine, Wheezing, Shortness of Breath, Bronchospa sm, Chest tightness< br>Is this order for a patient with suspected or confirmed COVID-19 infection? Yes ondansetron 2019-06 Yes 4mg 4 mg, Slow Univers (ZOFRAN 2-30 IV Push, ity of (PF)) 22:34: Q6HPRN, [place] injection 4 14 Starting Medi karine mg [facility] 06/21/20 at 1634, Until Discontinu ed, Routine, Nausea and Vomiting (N/V) sennosides 2019-06 Yes 8.6mg 8.6 mg, Uni vers (SENOKOT) 230 Oral, ity of tablet 8.6 22:34: BIDPRN, [place] mg 13 Starting [facility] 06/21/20 at 1634, Until Discontinu ed, Routine, Constipati on acetaminoph 2019-06 Yes 650mg 650 mg, Un caesar en 2-30 Oral, ity of (TYLENOL) 22:34: Q6HPRN, [place] tablet 650 13 Starting Medic al mg [facility] 06/21/20 at 1634, Until Discontinu ed, Routine, Pain (scale 1-3), Temp > 38.5 C vancomycin 2019-06- No 15mg/kg 1,500 mg Univers 1500 mg in 06-22 (rounded ity of NS 500 mL 22:15: 00:11 from [place] IV 00 :00 2,224.5 mg Medical Piggyback = 15 mg/kg Bran ch RTU 1,500 ?148.3 mg kg), IV Piggyback, ONCE, 1 dose, [facility] 06/21/20 at 1615
Re ason for Anti-Infec tive: Documented Infection< br>Documen josé antonio Infection Site: Skin / Soft Tissue
Duration of Therapy: Other (see Comments) ceFEPIme 2019-06 No 1000mg 1,000 mg, U nivers (MAXIPIME) 06-21 IV ity of injection 22:15: 21:34 [place], [place] 1,000 mg 00 :00 ONCE, 1 Medical dose, [facility] Branch 06/21/20 at 1615, STAT
Re ason for Anti-Infec tive: Documented Infection< br>Documen josé antonio Infection Site: Skin / Soft Tissue
Duration of Therapy: Other (see Comments) Hydrocodone Hydrocodone Yes Baljit (Schedule Common -Acetaminop -Acetaminop Judd II Drug) Spirit hen hen TAKE 1 - [facility]I TABLET BY [facility] Gabapentin Gabapentin Yes Baljit 1 tablet Common Judd [facility] Enalapril Enalapril Yes Baljit 1 tablet Common Maleate Maleate Judd [facility] Amiodarone Amiodarone Yes Baljit 1 tablet Common HCl HCl Judd [facility] Xarelto Xarelto Yes Baljit 1 tablet Com mon Judd with food [facility] Liothyronin Liothyronin Yes Baljit 1 tablet Common e Sodium e Sodium Judd on an Spiri t empty - CHI stomach [facility] Aspirin Aspirin Yes Baljit 1 tablet Com mon Judd [facility] Vancomycin Vancomycin Yes Baljit as C ommon HCl HCl Judd directed [facility] Liothyronin Liothyronin Yes Baljit 1 tablet Common e Sodium e Sodium Judd on an Spiri t empty - CHI stomach [facility] Immunizations Ordered Filled Immunization Date Status Comments [facility] e Immunization Name Name PPD (TB) 2021-03-13 Completed [facility] 00:00:00 [facility] PPD (TB) 2021-03-13 Completed University of 00:00:00 [facility] PPD (TB) 2021-03-13 Completed University of 00:00:00 [facility] PPD (TB) 2021-03-13 Completed University of 00:00:00 [facility] SARS-COV-2 COVID-19 2020-11-23 Completed Unive rsity of MODERNA VACCINE 00:00:00 [facility] SARS-COV-2 COVID-19 2020-11-23 Completed Unive rsity of MODERNA VACCINE 00:00:00 [facility] SARS-COV-2 COVID-19 2020-11-23 Completed Unive rsity of MODERNA VACCINE 00:00:00 [facility] SARS-COV-2 COVID-19 2020-11-23 Completed Unive rsity of MODERNA VACCINE 00:00:00 [facility] Influenza High Dose 2020-04-13 Completed Unive rsity of [place] 00:00:00 [facility] Influenza High Dose 2020-04-13 Completed Unive rsity of [place] 00:00:00 [facility] Influenza High Dose 2020-04-13 Completed Unive rsity of [place] 00:00:00 [facility] Influenza High Dose 2020-04-13 Completed Unive rsity of [place] 00:00:00 [facility] Influenza High Dose 2020-04-13 Completed Unive rsity of [place] 00:00:00 [facility] Influenza High Dose 2020-04-13 Completed Unive rsity of [place] 00:00:00 [facility] Influenza High Dose 2020-04-13 Completed Unive rsity of [place] 00:00:00 [facility] Influenza High Dose 2020-04-13 Completed Unive rsity of [place] 00:00:00 [facility] Influenza High Dose 2020-04-13 Completed Unive rsity of [place] 00:00:00 [facility] Influenza High Dose 2020-04-13 Completed Unive rsity of [place] 00:00:00 [facility] Influenza High Dose 2020-03-23 Completed Unive rsity of 00:00:00 [facility] Influenza High Dose 2020-03-23 Completed Unive rsity of 00:00:00 [facility] Influenza High Dose 2020-03-23 Completed Unive rsity of 00:00:00 [facility] Influenza High Dose 2020-03-23 Completed Unive rsity of 00:00:00 [facility] Influenza High Dose 2020-03-23 Completed Unive rsity of 00:00:00 [facility] Influenza High Dose 2020-03-23 Completed Unive rsity of 00:00:00 [facility] Influenza High Dose 2018-04-14 Completed Unive rsity of 00:00:00 [facility] Influenza High Dose 2018-04-14 Completed Unive rsity of 00:00:00 [facility] Influenza High Dose 2018-04-14 Completed Unive rsity of 00:00:00 [facility] Influenza High Dose 2018-04-14 Completed Unive rsity of 00:00:00 [facility] Influenza High Dose 2018-04-14 Completed Unive rsity of 00:00:00 [facility] Influenza High Dose 2018-04-14 Completed Unive rsity of 00:00:00 [facility] Influenza High Dose 2018-04-14 Completed Unive rsity of 00:00:00 [facility] Influenza High Dose 2018-04-14 Completed Unive rsity of 00:00:00 [facility] Influenza High Dose 2018-04-14 Completed Unive rsity of 00:00:00 [facility] Influenza High Dose 2018-04-14 Completed Unive rsity of 00:00:00 [facility] Influenza High Dose 2018-04-14 Completed Unive rsity of 00:00:00 [facility] Vital Signs Vital Name Observation Time Observation Value Comments Source Systolic blood 2021-11-16 18:00:00 128 mm[Hg] Univer sity of pressure [facility] Diastolic blood 2021-11-16 18:00:00 72 mm[Hg] Unive rsity of pressure [facility] Heart rate 2021-11-16 18:00:00 76 /min [facility] Respiratory rate 2021-11-16 18:00:00 18 /min Univ ersity of [facility] Oxygen saturation in 2021-11-16 18:00:00 97 /min [facility] blood by [facility] Pulse oximetry Branch Body temperature 2021-11-16 16:46:00 36.5 Anahi Univ ersity of [facility] Body height 2021-11-16 16:46:00 177.8 cm [facility] Body weight 2021-11-16 16:46:00 104.327 kg [facility]i ty [facility] [place] [facility] BMI 2021-11-16 16:46:00 33.00 kg/m2 [facility] [place] [facility] Systolic blood 2021-06-29 00:00:00 105 mm[Hg] Univer sity of pressure [place] [facility] Diastolic blood 2021-06-29 00:00:00 73 mm[Hg] Unive rsity of pressure [place] [facility] Heart rate 2021-06-29 00:00:00 84 /min [facility] [place] [facility] Respiratory rate 2021-06-29 00:00:00 20 /min Univ ersity of [place] [facility] Oxygen saturation in 2021-06-29 00:00:00 96 /min University of Arterial blood by [place] [employer] karine Pulse oximetry Branch Body temperature 2021-06-28 15:25:00 36.33 Anahi Univ ersity of [place] [facility] Body weight 2021-06-28 15:25:00 114.306 kg [facility] [place] [facility] BMI 2021-06-28 15:25:00 36.16 kg/m2 [facility] [place] [facility] Systolic blood 2021-05-25 02:09:00 93 mm[Hg] Univer sity of pressure [place] [facility] Diastolic blood 2021-05-25 02:09:00 78 mm[Hg] Unive rsity of pressure [place] [facility] Heart rate 2021-05-25 02:09:00 80 /min [facility] [place] [facility] Body temperature 2021-05-25 02:09:00 36.33 Anahi Univ ersity of [place] [facility] Respiratory rate 2021-05-25 02:09:00 18 /min Univ ersity of [place] [facility] Oxygen saturation in 2021-05-25 02:09:00 97 /min University of Arterial blood by [place] [employer] karine Pulse oximetry Branch Body weight 2021-05-24 09:45:00 114.42 kg [facility] BMI 2021-05-24 09:45:00 36.19 kg/m2 [facility] Body height 2021-05-20 02:43:00 177.8 cm [facility] Heart rate 2021-02-06 00:45:00 116 /min [facility] Respiratory rate 2021-02-06 00:45:00 18 /min [facility] Oxygen saturation in 2021-02-06 00:45:00 97 /min [facility] by [place] [facility] Pulse oximetry [facility] Systolic blood 2021-02-06 00:36:00 109 mm[Hg] [facility] Diastolic blood 2021-02-06 00:36:00 61 mm[Hg] [facility] Body temperature 2021-02-06 00:36:00 36.67 Anahi [facility] Body height 2021-01-25 03:24:00 177.8 cm [facility] Body weight 2021-01-25 03:24:00 149.687 kg [facility] BMI 2021-01-25 03:24:00 47.35 kg/m2 [facility] Systolic blood 2021-01-30 15:00:00 97 mm[Hg] [facility] Diastolic blood 2021-01-30 15:00:00 63 mm[Hg] [facility] Heart rate 2021-01-30 15:00:00 70 /min [facility] Respiratory rate 2021-01-30 15:00:00 31 /min [facility] Oxygen saturation in 2021-01-30 15:00:00 94 /min [facility] Arterial blood by [facility] karine Pulse oximetry Branch Body temperature 2021-01-30 13:00:00 36 Anahi [facility] Body height 2021-01-25 03:24:00 177.8 cm [facility] Body weight 2021-01-25 03:24:00 149.687 kg [facility] BMI 2021-01-25 03:24:00 47.35 kg/m2 [facility] Oxygen saturation in 2020-07-19 22:00:00 96 /min [facility] [place] [facility] P[facility]xim[facility] Respiratory rate 2020-07-19 18:35:00 18 /min [facility] Systolic blood 2020-07-19 17:00:00 141 mm[Hg] [facility] Diastolic blood 2020-07-19 17:00:00 82 mm[Hg] Unive rsity of pressure [facility] Heart rate 2020-07-19 17:00:00 81 /min [facility]i [facility] of [facility] Body temperature 2020-07-19 17:00:00 36.83 Anahi Univ ersity of [facility] Body height 2020-07-13 07:39:00 177.8 cm [facility]i [facility] of [facility] Body weight 2020-07-12 23:07:00 149.687 kg [facility] of [facility] BMI 2020-07-12 23:07:00 47.35 kg/m2 [facility] Heart rate 2020-06-28 02:42:00 76 /min [facility] Respiratory rate 2020-06-28 02:42:00 18 /min [facility] in 2020-06-28 02:42:00 95 /min University Arterial blood by [facility] Pulse oximetry Branch Systolic blood 2020-06-28 02:30:00 127 mm[Hg] Univer sity of [facility] Diastolic blood 2020-06-28 02:30:00 90 mm[Hg] Unive rsity of [facility] Body temperature 2020-06-28 02:30:00 36.39 Anahi [facility] Body height 2020-06-22 00:23:00 177.8 cm [facility]i [facility] of [facility] Body weight 2020-06-22 00:23:00 148.326 kg [facility] of [facility] BMI 2020-06-22 00:23:00 46.92 kg/m2 Universi ty [facility] Systolic blood 2020-08-12 01:53:34 135 mm[Hg] Method ist [facility] pressure Diastolic blood 2020-08-12 01:53:34 61 mm[Hg] [facility] pressure Heart rate 2020-08-12 01:53:34 104 /min [facility] Body temperature 2020-08-12 01:53:34 35.72 Anahi [facility] Respiratory rate 2020-08-12 01:53:34 20 /min [facility] Oxygen saturation in 2020-08-12 01:53:34 95 /min [facility] Arterial blood by Pulse oximetry Body weight 2020-08-09 12:14:00 133.358 kg [facility] BMI 2020-08-09 12:14:00 42.18 kg/m2 [facility] Procedures Procedure Date / Time Performing Clinician Source Performed COMP. METABOLIC PANEL 2021-11-16 17:05:00 [facility] ([id number]) [facility] CBC WITH DIFF 2021-11-16 17:05:00 [facility] LACTIC ACID WHOLE BLOOD 2021-11-16 17:05:[address] [facility] COVID-19 (ID NOW RAPID 2021-06-28 20:42:00 [facility] TESTING) [facility] URINALYSIS 2021-06-28 16:32:00 [facility] COMP. METABOLIC PANEL 2021-06-28 15:29:00 [facility] ([id number]) [facility] CBC WITH DIFF 2021-06-28 15:29:00 [facility] [id number] 2021-05-30 00:00:00 ENCPL [id number] 2021-05-30 00:00:00 ENCPL [id number] 2021-05-30 00:00:00 ENCPL [id number] 2021-05-30 00:00:00 ENCPL [id number] 2021-05-30 00:00:00 ENCPL [id number] 2021-05-30 00:00:00 ENCPL [id number] 2021-05-30 00:00:00 ENCPL [id number] 2021-05-30 00:00:00 ENCPL [id number] 2021-05-30 00:00:00 ENCPL US RETROPERITONEAL 2021-05-23 16:45:00 Max Florian [facility] COMPLETE Medical Branch BASIC METABOLIC PANEL 2021-05-23 11:12:00 Zohra [facility] (NA, K, CL, CO2, GLUCOSE, Medica l Branch BUN, CREATININE, CA) CBC WITH DIFF 2021-05-23 11:12:00 [place], [facility] BASIC METABOLIC PANEL 2021-05-21 11:22:00 Heron العلي [facility] (NA, K, CL, CO2, GLUCOSE, Medica l Branch BUN, CREATININE, CA) CBC WITH DIFF 2021-05-21 11:22:00 Heron العلي [facility] BASIC METABOLIC PANEL 2021-05-20 10:39:00 [facility] (NA, K, CL, CO2, GLUCOSE, Medica l Branch BUN, CREATININE, CA) CBC WITH DIFF 2021-05-20 10:39:00 [facility] COMP. METABOLIC PANEL 2021-05-19 21:31:00 Sandra Summers [facility] ([id number]) Medical Branch CBC WITH DIFF 2021-05-19 21:31:00 Sandra Summers [facility] URINALYSIS 2021-05-19 21:31:00 Sandra Summers [facility] URINE CULTURE 2021-05-19 21:31:00 Sandra Summers [facility] COVID-19 (ID NOW RAPID 2021-05-19 21:31:00 Sandra Summers [facility] TESTING) Medical Branch LAB ONLY COVID 2021-05-19 21:31:00 Sandra Summers [facility] INTERPRETATION [facility] [id number] 2021-05-02 00:00:00 ENCKY [id number] 2021-05-02 00:00:00 ENCKY [id number] 2021-05-02 00:00:00 ENCKY [id number] 2021-04-26 00:00:00 ENCKY [id number] 2021-04-26 00:00:00 ENCKY [id number] 2021-04-26 00:00:00 ENCKY [id number] 2021-04-26 00:00:00 ENCKY [id number] 2021-04-26 00:00:00 ENCKY [id number] 2021-04-26 00:00:00 ENCKY [id number] 2021-04-26 00:00:00 ENCKY [id number] 2021-04-26 00:00:00 ENCKY [id number] 2021-04-26 00:00:00 ENCKY [id number] 2021-04-26 00:00:00 ENCKY [id number] 2021-04-26 00:00:00 ENCKY [id number] 2021-04-26 00:00:00 ENCKY [id number] 2021-04-26 00:00:00 ENCKY [id number] 2021-04-26 00:00:00 ENCKY IRON PANEL 2021-02-05 20:11:00 [facility] MAGNESIUM 2021-02-05 09:22:00 Rhiannon [facility] FERRITIN SERUM 2021-02-05 09:22:00 [facility]EL 2021-02-05 09:22:00 [facility] ([facility], K, CL, CO2, GLUCOSE, Medica l Branch BUN, CREATININE, CA) CBC WITHOUT DIFF 2021-02-05 09:22:00 Rhiannon [facility] MAGNESIUM 2021-02-04 09:08:00 Rhiannon [facility] BASIC METABOLIC PANEL 2021-02-04 09:08:00 Rhiannon [facility] (NA, K, CL, CO2, GLUCOSE, Medica l Branch BUN, CREATININE, CA) CBC WITHOUT DIFF 2021-02-04 09:08:00 Rhiannon [facility] MAGNESIUM 2021-02-03 09:13:00 [facility] BASIC METABOLIC PANEL 2021-02-03 09:13:00 [facility] (NA, K, CL, CO2, GLUCOSE, Medica l Branch BUN, CREATININE, CA) CBC WITH DIFF 2021-02-03 09:13:00 [facility] MAGNESIUM 2021-02-02 09:12:00 [facility] BASIC METABOLIC PANEL 2021-02-02 09:12:[address] [facility] (NA, K, CL, CO2, GLUCOSE, Medica l Branch BUN, CREATININE, CA) CBC WITH DIFF 2021-02-02 09:12:00 [facility] PHOSPHORUS 2021-02-01 10:41:00 [facility] MAGNESIUM 2021-02-01 10:41:00 [facility]OLIC PANEL 2021-02-01 10:41:00 [facility] (NA, K, CL, CO2, GLUCOSE, Medica l Branch BUN, CREATININE, CA) CBC WITH DIFF 2021-02-01 10:41:00 [facility] 2021-01-31 08:54:00 Jennifer [facility] BASIC METABOLIC PANEL 2021-01-31 08:54:00 Jennifer [facility] (NA, K, CL, CO2, GLUCOSE, Medica l Branch BUN, CREATININE, CA) CBC WITH DIFF 2021-01-31 08:54:00 Jennifer [facility] MAGNESIUM 2021-01-31 08:54:00 Jennifer [facility] BASIC METABOLIC PANEL 2021-01-31 08:54:00 Jennifer [facility] (NA, K, CL, CO2, GLUCOSE, Medica l Branch BUN, CREATININE, CA) CBC WITH DIFF 2021-01-31 08:54:00 Jennifer [facility] CBC WITH DIFF 2021-01-31 01:48:00 Faraz [facility] CBC WITH DIFF 2021-01-31 01:48:00 Faraz [facility] AC PANEL 20 + LACTIC ACID 2021-01-30 22:15:00 [facility]EL 20 + LACTIC ACID 2021-01-30 22:15:00 Mai Burton [facility] VANCOMYCIN TROUGH 2021-01-30 20:55:00 Jennifer [facility] VANCOMYCIN TROUGH 2021-01-30 20:55:00 Amjae Jonathan [facility] FL TIME OR 2021-01-30 20:47:17 Zulma [facility] (NON-REPORTABLE) Medical Branch FL TIME OR 2021-01-30 20:47:17 Zulma [facility] (NON-REPORTABLE) Medical Branch ARTERIOGRAM 2021-01-30 16:25:00 Jeffery Pimentel [facility] CENTRAL VENOUS ACCESS 2021-01-30 16:25:00 [facility] CATHETER PLACEMENT Medical Branc h ARTERIOGRAM 2021-01-30 16:25:00 Jeffery Pimentel [facility] CENTRAL VENOUS ACCESS 2021-01-30 16:25:00 Jeffery [facility] CATHETER PLACEMENT Medical Branc h ABORH CONFIRMATION (LAB 2021-01-30 14:03:00 Zulma [facility] ONLY) Medical Branch ABORH CONFIRMATION (LAB 2021-01-30 14:03:00 Zulma [facility] ONLY) Medical Branch HB ABO GROUPING 2021-01-30 13:31:00 Zulma [facility] HB ABO GROUPING 2021-01-30 13:31:00 Zulma [facility] BASIC METABOLIC PANEL 2021-01-30 08:50:00 Max Florian [facility] (NA, K, CL, CO2, GLUCOSE, Medica l Branch BUN, CREATININE, CA) CBC WITH DIFF 2021-01-30 08:50:00 Max Florian [facility] PROTHROMBIN TIME / INR 2021-01-30 08:50:00 Max [facility] ACTIVATED PARTIAL 2021-01-30 08:50:00 Max Florian [facility] BASIC METABOLIC PANEL 2021-01-30 08:50:00 Max Florian [facility] (NA, K, CL, CO2, GLUCOSE, Medica l Branch BUN, CREATININE, CA) CBC WITH DIFF 2021-01-30 08:50:00 Anival [facility] PROTHROMBIN TIME / INR 2021-01-30 08:50:00 Max [facility] ACTIVATED PARTIAL 2021-01-30 08:50:00 Max Florian [facility] COVID-19 (ID NOW RAPID 2021-01-30 05:25:00 Acosta Jacobs [facility] TESTING) Medical Branch LAB ONLY COVID 2021-01-30 05:25:00 Arlene [facility] COVID-19 (ID NOW RAPID 2021-01-30 05:25:00 Acosta Jacobs [facility] TESTING) Medical Branch LAB ONLY COVID 2021-01-30 05:25:00 Arlene [facility] POCT GLUCOSE (AUTOMATED) 2021-01-30 04:13:[address] [facility] POCT GLUCOSE (AUTOMATED) 2021-01-30 04:13:[address] [facility] ACTIVATED PARTIAL 2021-01-30 04:10:00 Podila, [facility] ACTIVATED PARTIAL 2021-01-30 04:10:00 Podila, [facility] MRSA / MSSA SCREEN BY 2021-01-30 03:40:00 Podila, [facility] MRSA / MSSA SCREEN BY 2021-01-30 03:40:00 Podila, [facility] 1 VW 2021-01-29 20:44:45 [facility]W 2021-01-29 20:44:45 Max Florian [facility] VANCOMYCIN TROUGH 2021-01-29 20:02:00 Anival [facility] VANCOMYCIN TROUGH 2021-01-29 20:02:00 Max Florian [facility] CBC WITH DIFF 2021-01-28 07:01:00 Anival Max [facility] ACTIVATED PARTIAL 2021-01-28 07:01:[address] [facility] CBC WITH DIFF 2021-01-28 07:01:00 Max Florian [facility] ACTIVATED PARTIAL 2021-01-28 07:01:[address] [facility] PHOSPHORUS 2021-01-28 06:32:00 [facility] 2021-01-28 06:32:00 Anival [facility] BASIC METABOLIC PANEL 2021-01-28 06:32:00 Max Florian [facility] (NA, K, CL, CO2, GLUCOSE, Medica l Branch BUN, CREATININE, CA) PHOSPHORUS 2021-01-28 06:32:00 [facility] 2021-01-28 06:32:00 [facility] BASIC METABOLIC PANEL 2021-01-28 06:32:00 Max Florian [facility] (NA, K, CL, CO2, GLUCOSE, Medica l Branch BUN, CREATININE, CA) AC ABG + LACTIC ACID 2021-01-27 21:23:00 Max Florian [facility] AC ABG + LACTIC ACID 2021-01-27 21:23:00 Max Florian [facility] ACUTE CARE VENOUS BLOOD 2021-01-27 20:35:00 Max Florian [facility] ACUTE CARE VENOUS BLOOD 2021-01-27 20:35:00 Max Florian [facility] XR CHEST 1 VW 2021-01-27 18:20:40 [facility] VW 2021-01-27 18:20:40 Max Florian [facility] PHOSPHORUS 2021-01-27 09:53:00 Max Florian [facility] MAGNESIUM 2021-01-27 09:53:00 Max Florian [facility] COMP. METABOLIC PANEL 2021-01-27 09:53:00 Max Florian [facility] ([id number]) [facility] CBC WITH DIFF 2021-01-27 09:53:00 Max Florian [facility] N-TERMINAL PRO-BNP 2021-01-27 09:53:00 Max Florian [facility] PHOSPHORUS 2021-01-27 09:53:00 Max Florian [facility] MAGNESIUM 2021-01-27 09:53:00 Max Florian [facility] COMP. METABOLIC PANEL 2021-01-27 09:53:00 Max Florian [facility] ([id number]) [facility] CBC WITH DIFF 2021-01-27 09:53:00 [facility] N-[facility]MINAL [facility]-BNP 2021-01-27 09:53:00 aMx Florian [facility] BLOOD CULTURE SCREEN 2021-01-26 18:33:00 Max Florian [facility] BLOOD CULTURE SCREEN 2021-01-26 18:33:00 Max Florian [facility] BLOOD CULTURE SCREEN 2021-01-26 18:30:00 Max Florian [facility] BLOOD CULTURE SCREEN 2021-01-26 18:30:00 Max Florian [facility] VANCOMYCIN TROUGH 2021-01-26 18:28:00 Anival [facility] VANCOMYCIN TROUGH 2021-01-26 18:28:00 Max Florian [facility] PHOSPHORUS 2021-01-26 09:03:00 Max Florian [facility] MAGNESIUM 2021-01-26 09:03:00 Max Florian [facility] COMP. METABOLIC PANEL 2021-01-26 09:03:00 Max Florian [id number] N-TERMINAL PRO-BNP 2021-01-26 09:03:00 Max Florian [facility] PHOSPHORUS 2021-01-26 09:03:00 Abdullah, [facility] MAGNESIUM 2021-01-26 09:03:00 Anival [facility] COMP. METABOLIC PANEL 2021-01-26 09:03:00 Max Florian [facility] ([id number]) [facility] N-TERMINAL PRO-BNP 2021-01-26 09:03:00 Max Florian [facility] CBC WITH DIFF 2021-01-26 09:02:00 [facility] CBC WITH DIFF 2021-01-26 09:02:00 Anival [facility] MAGNESIUM 2021-01-25 23:40:00 Anival [facility] BASIC METABOLIC PANEL 2021-01-25 23:40:00 Max Florian [facility] (NA, K, CL, CO2, GLUCOSE, Medica l Branch BUN, CREATININE, CA) MAGNESIUM 2021-01-25 23:40:00 [facility] BASIC METABOLIC PANEL 2021-01-25 23:40:00 [facility] (NA, K, CL, CO2, GLUCOSE, Medica l Branch BUN, CREATININE, CA) CT THORAX WO CONTRAST 2021-01-25 21:59:14 Anival [facility] CT THORAX WO CONTRAST 2021-01-25 21:59:14 Anival [facility] XR CHEST 1 2021-01-25 12:27:17 Humaira [facility] XR CHEST 1 2021-01-25 12:27:17 Humaira [facility] ACUTE CARE ARTERIAL BLOOD 2021-01-25 10:09:00 Jaya Tavarez [facility] ACUTE CARE ARTERIAL BLOOD 2021-01-25 10:09:00 Jaya Tavarez [facility] LACTIC ACID WHOLE BLOOD 2021-01-25 07:40:00 Jaya Tavarez [facility] LACTIC ACID WHOLE BLOOD 2021-01-25 07:40:00 Edionwe, [facility] ACUTE CARE ARTERIAL BLOOD 2021-01-25 07:39:00 HumairaJaya [facility] ACUTE CARE ARTERIAL BLOOD 2021-01-25 07:39:00 [facility] CBC WITH DIFF 2021-01-25 07:27:00 Anival [facility] CBC WITH DIFF 2021-01-25 07:27:00 Anival [facility] MAGNESIUM 2021-01-25 07:26:00 Humaira [facility] COMP. METABOLIC PANEL 2021-01-25 07:26:00 Anival [facility] ([id number]) [facility] N-TERMINAL PRO-BNP 2021-01-25 07:26:00 [facility] 2021-01-25 07:26:00 Humaira [facility] COMP. METABOLIC PANEL 2021-01-25 07:26:00 Max Florian [facility] ([id number]) [facility] N-TERMINAL PRO-BNP 2021-01-25 07:26:00 [facility]AN[facility]IN [facility] 2021-01-24 18:07:00 Singer [facility] VANCOMYCIN TROUGH 2021-01-24 18:07:00 Singer [facility] CT ABDOMEN PELVIS W 2021-01-24 17:07:32 Armando Walls [facility] CONTRAST [facility] CT ABDOMEN PELVIS W 2021-01-24 17:07:32 Singer Armando [facility] CONTRAST [facility] COMP. METABOLIC PANEL 2021-01-24 14:10:00 Armando Walls [facility] ([id number]) [facility] CBC WITH DIFF 2021-01-24 14:10:00 Singer [facility] N-TERMINAL PRO-BNP 2021-01-24 14:10:00 Singer Armando [facility] COMP. METABOLIC PANEL 2021-01-24 14:10:00 Armando Walls [facility] ([id number]) Medical Branch CBC WITH DIFF 2021-01-24 14:10:00 Armando Walls o f [facility] N-TERMINAL PRO-BNP 2021-01-24 14:10:00 Armando Walls [facility] AC PANEL 20 + LACTIC ACID 2021-01-24 13:15:00 [facility] PANEL 20 + LACTIC ACID 2021-01-24 13:15:[address] [facility] XR CHEST 1 VW 2021-01-24 07:23:47 Dany Russell [facility] XR CHEST 1 VW 2021-01-24 07:23:47 aDny Russell [facility] HB ECG ROUTINE & RHYTHM 2021-01-24 02:08:01 Dany Russell [facility] HB ECG ROUTINE & RHYTHM 2021-01-24 02:08:01 Dany Russell [facility] COMP. METABOLIC PANEL 2021-01-24 01:32:00 Dany Russell [facility] ([id number]) Medical Branch CBC WITH DIFF 2021-01-24 01:32:00 Dany Russell [facility] N-TERMINAL PRO-BNP 2021-01-24 01:32:00 Dany Russell [facility] COMP. METABOLIC PANEL 2021-01-24 01:32:00 Dany Russell [facility] ([id number]) Medical Branch CBC WITH DIFF 2021-01-24 01:32:00 Dany Russell [facility] N-TERMINAL PRO-BNP 2021-01-24 01:32:00 Dany Russell [facility] ACUTE CARE ARTERIAL BLOOD 2021-01-24 01:27:00 Dany Russell [facility] ACUTE CARE ARTERIAL BLOOD 2021-01-24 01:27:00 Dany Russell [facility] CRITICAL CARE 2021-01-23 12:54:00 [facility] CRITICAL CARE 2021-01-23 12:54:00 [facility] o f [facility] URINE CULTURE 2021-01-23 11:34:00 Sandra Summers [facility] URINE CULTURE 2021-01-23 11:34:00 Sandra Summers [facility] AC PANEL 21 + LACTIC ACID 2021-01-23 11:33:00 Sandra Summers [facility] AC PANEL 21 + LACTIC ACID 2021-01-23 11:33:00 Sandra Summers [facility] URINALYSIS 2021-01-23 08:02:00 Sandra Summers [facility] URINALYSIS 2021-01-23 08:02:00 Sandra Summers [facility] GRAM POSITIVE BLOOD 2021-01-23 07:43:00 Sandra Summers [facility] PROBE-ANAEROBIC BLOOD CULTURE SCREEN 2021-01-23 07:43:00 Sandra Summers [facility] BLOOD CULTURE WORKUP 2021-01-23 07:43:00 Sandra Summers [facility] GRAM POSITIVE BLOOD 2021-01-23 07:43:00 Sandra Summers [facility] PROBE-ANAEROBIC BLOOD CULTURE SCREEN 2021-01-23 07:43:00 Sandra Summers [facility] BLOOD CULTURE WORKUP 2021-01-23 07:43:00 Sandra Summers [facility] CA INSERT NON-TUNNEL CV 2021-01-23 07:36:10 [facility] NON-TUNNEL CV 2021-01-23 07:36:10 Sandra Summers [facility] XR CHEST 1 2021-01-23 06:28:57 Sandra Summers [facility] XR CHEST 1 2021-01-23 06:28:57 Sandra Summers [facility] XR CHEST 1 VW 2021-01-23 04:56:05 Sandra Summers [facility] XR CHEST 1 VW 2021-01-23 04:56:05 Sandra Summers [facility] AC PANEL 21 + LACTIC ACID 2021-01-23 04:35:00 Sandra Summers [facility] COVID-19 (ID NOW RAPID 2021-01-23 04:35:00 Sandra Summers [facility] TESTING) Medical Branch LAB ONLY COVID 2021-01-23 04:35:00 Sandra Summers [facility] INTERPRETATION [facility] AC PANEL 21 + LACTIC ACID 2021-01-23 04:35:00 Sandra Summers [facility] COVID-19 (ID NOW RAPID 2021-01-23 04:35:00 Sandra Summers [facility] TESTING) Medical Branch LAB ONLY COVID 2021-01-23 04:35:00 Sandra Summers [facility] INTERPRETATION [facility] LIPASE 2021-01-23 04:34:00 Sandra Summers [facility] MAGNESIUM 2021-01-23 04:34:00 Sandra Summers [facility] TROPONIN I 2021-01-23 04:34:00 Sandra Summers [facility] THYROID STIMULATING 2021-01-23 04:34:00 Sandra Summers [facility] HORMONE [facility] HEPATIC FUNCTION PANEL 2021-01-23 04:34:00 Sandra Summers [facility] ([id number]) (ALB,T.PRO,BILI Medical Branch T,BU/BC,ALT,AST,ALK PHOS) BASIC METABOLIC PANEL 2021-01-23 04:34:00 Sandra Summers [facility] (NA, K, CL, CO2, GLUCOSE, Medica l Branch BUN, CREATININE, CA) CBC WITH DIFF 2021-01-23 04:34:00 Sandra Summers [facility] PROTHROMBIN TIME / INR 2021-01-23 04:34:[address] [facility] N-TERMINAL PRO-BNP 2021-01-23 04:34:00 Sandra Summers [facility] LIPASE 2021-01-23 04:34:00 Sandra Summers [facility] MAGNESIUM 2021-01-23 04:34:00 Sandra Summers [facility] TROPONIN I 2021-01-23 04:34:00 Sandra Summers [facility] THYROID STIMULATING 2021-01-23 04:34:00 [facility] HORMONE [facility] HEPATIC FUNCTION PANEL 2021-01-23 04:34:00 Sandra Summers [facility] ([id number]) (ALB,T.PRO,BILI Medical Branch T,BU/BC,ALT,AST,ALK PHOS) BASIC METABOLIC PANEL 2021-01-23 04:34:00 Sandra Summers [facility] versJoint [facility] (NA, K, CL, CO2, GLUCOSE, Medica l Branch BUN, CREATININE, CA) CBC WITH DIFF 2021-01-23 04:34:00 Sandra Summers [facility] PROTHROMBIN TIME / INR 2021-01-23 04:34:00 [facility] 2021-01-23 04:34:00 Sandra Summers [facility] HB ECG ROUTINE & RHYTHM 2021-01-23 04:20:05 Sandra Summers U [facility] HB ECG ROUTINE & RHYTHM 2021-01-23 04:20:05 [facility] 2021-01-22 05:01:00 Doctor Unassigned, No U [facility] HOSPITAL ADMISSION 2021-01-22 05:01:00 Doctor Unassigned, No Uni [facility] EMERGENCY DEPARTMENT 2021-01-22 05:01:00 Doctor Unassigned, No [facility] HOSPITAL ADMISSION 2021-01-22 05:01:00 Doctor Unassigned, No Uni [facility] AUTHORIZATION FOR RELEASE 2020-11-16 05:01:00 Doctor Unassigned, No [facility] [id number] 2020-10-28 00:00:00 ENCPL [id number] 2020-10-28 00:00:00 ENCPL [id number] 2020-10-28 00:00:00 ENCPL [id number] 2020-10-28 00:00:00 ENCPL HC COMPLETE BLD COUNT 2020-08-11 12:50:00 Augusto Tejada [facility] W/AUTO DIFF COMPREHENSIVE METABOLIC 2020-08-11 12:50:00 Augusto Tejada [facility] PANEL ESTIMATED GFR 2020-08-11 12:50:00 Augusto Tejada [facility] CONSULT TO OSTOMY CARE 2020-08-10 19:56:06 Jeffery Alcala [facility] NURSE VENIPUNC NEED PHYS 2020-08-10 17:25:00 [facility] SKILL,DX OR RX HC COMPLETE BLD COUNT 2020-08-10 10:27:00 Augusto Tejada [facility] W/AUTO DIFF COMPREHENSIVE METABOLIC 2020-08-10 10:27:00 Augusto Tejada [facility] PANEL ESTIMATED GFR 2020-08-10 10:27:00 Angle [facility] CREATINE KINASE, TOTAL 2020-08-09 12:10:00 [facility] ([facility]) HC COMPLETE BLD COUNT 2020-08-09 12:10:00 Augusto Tejada [facility] W/AUTO DIFF COMPREHENSIVE METABOLIC 2020-08-09 12:10:00 Augusto Tejada [facility] PANEL ESTIMATED GFR 2020-08-09 12:10:00 Augusto Tejada [facility] HC COMPLETE BLD COUNT 2020-08-08 11:26:00 Augusto Tejada [facility] W/AUTO DIFF COMPREHENSIVE METABOLIC 2020-08-08 11:26:00 Angle [facility] PANEL ESTIMATED GFR 2020-08-08 11:26:00 [facility] CREATINE KINASE, TOTAL 2020-08-08 11:26:00 [facility] ([facility]) VANCOMYCIN LEVEL, TROUGH 2020-08-07 09:54:00 [place] Walker [facility] CBC HEMOGRAM 2020-08-07 09:54:00 Awe, [facility] BASIC METABOLIC PANEL 2020-08-07 09:54:00 Awe, [facility] ESTIMATED GFR 2020-08-07 09:54:00 Awe, [facility] CBC HEMOGRAM 2020-08-06 10:11:00 Awe, [facility] BASIC METABOLIC PANEL 2020-08-06 10:11:00 Awe, [facility] ESTIMATED GFR 2020-08-06 10:11:00 Awe, [facility] URINE CULTURE 2020-08-05 18:05:00 Awe, [facility] URINALYSIS SCREEN AND 2020-08-05 18:05:00 Awe, [facility] MICROSCOPY, WITH REFLEX TO CULTURE CBC HEMOGRAM 2020-08-05 10:34:00 [facility] COMPREHENSIVE METABOLIC 2020-08-05 10:34:00 [facility] PANEL ESTIMATED GFR 2020-08-05 10:34:00 [facility] CA AN ELECTIVE 2020-08-04 19:24:56 Dean Stevens [facility] spital ENDOTRACHEAL AIRWAY INCISION AND DRAINAGE, 2020-08-04 19:16:00 [facility] WOUND, POSTOPERATIVE, COMPLEX XR CHEST 1 VW PORTABLE 2020-08-04 12:29:44 Augusto Tejada [facility] CBC WITH PLATELET AND 2020-08-04 09:30:00 [facility]FFER[facility] PROT[facility]OMBIN TIME WITH INR 2020-08-04 09:30:00 Treasure Amanda [facility] COMPREHENSIVE METABOLIC 2020-08-04 09:30:00 Augusto Tejada [facility] PANEL ESTIMATED GFR 2020-08-04 09:30:00 Augusto Tejada [facility] ECG 12-LEAD 2020-08-04 07:12:03 Augusto Tejada [facility] Hospital TYPE AND SCREEN 2020-08-04 07:05:00 Augusto Tejada [facility] Hospital COVID-19 QUALITATIVE 2020-08-04 07:02:00 [facility] RT-PCR CONSULT TO OSTOMY CARE 2020-08-04 06:07:27 Augusto Tejada [facility] NURSE LACTIC ACID LEVEL, SEPSIS 2020-08-03 09:47:00 [facility] - NOW AND REPEAT 2X EVERY 3 HOURS HC COMPLETE BLD COUNT 2020-08-03 09:47:00 [facility] W/AUTO DIFF PROTHROMBIN TIME WITH INR 2020-08-03 09:47:00 [facility] COMPREHENSIVE METABOLIC 2020-08-03 09:47:00 [facility] PANEL ESTIMATED GFR 2020-08-03 09:47:00 [facility] spital LACTIC ACID LEVEL, SEPSIS 2020-08-03 06:24:00 [facility] - NOW AND REPEAT 2X EVERY 3 HOURS AEROBIC CULTURE 2020-08-03 04:13:00 [facility] GRAM STAIN 2020-08-03 04:13:00 [facility] BLOOD CULTURE, AEROBIC & 2020-08-03 02:23:00 [facility] ANAEROBIC BLOOD CULTURE, AEROBIC & 2020-08-03 01:57:00 [facility] ANAEROBIC HC COMPLETE BLD COUNT 2020-08-03 01:55:00 Carline Garcia [facility] W/AUTO DIFF LACTIC ACID LEVEL, SEPSIS 2020-08-03 01:55:00 [facility] - NOW AND REPEAT 2X EVERY 3 HOURS COMPREHENSIVE METABOLIC 2020-08-03 01:55:00 araseliCarline [facility] PANEL ESTIMATED GFR 2020-08-03 01:55:00 [facility] BASIC METABOLIC PANEL 2020-07-25 11:46:00 [facility] Sunday HC COMPLETE BLD COUNT 2020-07-25 11:46:00 [facility] W/AUTO DIFF Sunday ESTIMATED GFR 2020-07-25 11:46:00 [facility] Sunday BASIC METABOLIC PANEL 2020-07-24 11:46:00 [facility] Sunday HC COMPLETE BLD COUNT 2020-07-24 11:46:00 [facility] W/AUTO DIFF Sunday ESTIMATED GFR 2020-07-24 11:46:00 [facility] Sunday COVID-19 (ID NOW RAPID 2020-07-19 22:19:00 Johan Moeller [facility] MAGNESIUM 2020-07-19 12:11:00 Johan Moeller [facility] BASIC METABOLIC PANEL 2020-07-19 12:11:00 Johan Moeller [facility] (NA, K, CL, CO2, GLUCOSE, Medica l Branch BUN, CREATININE, CA) CBC WITHOUT DIFF 2020-07-19 12:11:00 Johan Moeller [facility] MAGNESIUM 2020-07-18 11:18:00 Johan Moeller [facility] THYROID STIMULATING 2020-07-18 11:18:00 Cory Rubin [facility] HORMONE [facility] BASIC METABOLIC PANEL 2020-07-18 11:18:00 Johan Moeller [facility] (NA, K, CL, CO2, GLUCOSE, Medica l Branch BUN, CREATININE, CA) CBC WITHOUT DIFF 2020-07-18 11:18:00 Johan Moeller [facility] POCT GLUCOSE (AUTOMATED) 2020-07-17 23:03:00 Bing Medrano [facility] CBC WITHOUT DIFF 2020-07-17 19:40:00 Johan Moeller [facility] BLOOD CULTURE SCREEN 2020-07-17 16:45:[address] [facility] URINALYSIS 2020-07-17 16:45:00 Johan Moeller [facility] BLOOD CULTURE SCREEN 2020-07-17 16:44:[address] [facility] POCT GLUCOSE (AUTOMATED) 2020-07-17 13:54:00 Bing Medrano [facility] BASIC METABOLIC PANEL 2020-07-17 10:12:00 Johan Moeller [facility] (NA, K, CL, CO2, GLUCOSE, Medica l Branch BUN, CREATININE, CA) CBC WITHOUT DIFF 2020-07-17 10:12:00 Johan Moeller [facility] LACTIC ACID WHOLE BLOOD 2020-07-17 10:11:[address] [facility] BASIC METABOLIC PANEL 2020-07-16 10:49:00 Johan Moeller [facility] (NA, K, CL, CO2, GLUCOSE, Medica l Branch BUN, CREATININE, CA) D-DIMER 2020-07-15 19:37:00 Johan Moeller [facility] FECES CULTURE 2020-07-15 12:36:00 Anton [facility] FECAL LEUKOCYTES 2020-07-15 12:36:00 Anton [facility] CALPROTECTIN, FECAL 2020-07-15 12:36:00 Lissette Walton [facility] BLOOD CULTURE SCREEN 2020-07-15 08:27:[address] [facility] ACTIVATED PARTIAL 2020-07-15 08:14:00 Aaron Delarosa [facility] EXTRA TUBE LT. GREEN 2020-07-15 08:14:00 Jay Dee [facility] BLOOD CULTURE SCREEN 2020-07-15 08:13:[address] [facility] ACTIVATED PARTIAL 2020-07-15 01:01:00 Aaron Delarosa [facility] ACTIVATED PARTIAL 2020-07-14 17:49:00 Aaron Delarosa [facility] MAGNESIUM 2020-07-14 12:02:00 Aaron Delarosa [facility] BASIC METABOLIC PANEL 2020-07-14 12:02:00 Aaron Delarosa [facility] (NA, K, CL, CO2, GLUCOSE, Medica l Branch BUN, CREATININE, CA) ACTIVATED PARTIAL 2020-07-14 12:01:00 [place] [facility] MAGNESIUM 2020-07-14 03:31:00 [facility] BASIC METABOLIC PANEL 2020-07-14 03:31:00 Laith [facility] (NA, K, CL, CO2, GLUCOSE, Medica l Branch BUN, CREATININE, CA) ACTIVATED PARTIAL 2020-07-14 03:31:00 [facility] POCT GLUCOSE (AUTOMATED) 2020-07-13 22:37:00 Bing Medrano [facility] OSMOLALITY URINE 2020-07-13 21:46:00 Lissette Walton [facility] MICROALBUMIN URINE 2020-07-13 21:46:00 Lissette Walton [facility] GALV/CLC ONLY - URINE 2020-07-13 21:46:00 Lissette Walton [facility] DRUG (IMMUNOASSAY) - 4 ER Medica l Branch PANEL URINALYSIS 2020-07-13 21:46:00 Aaron Delarosa [facility] CREATININE, URINE RANDOM 2020-07-13 21:46:[address] [facility] UREA NITROGEN, URINE 2020-07-13 21:46:00 Lissette Walton [facility] SODIUM, URINE RANDOM 2020-07-13 21:46:00 Aaron Delarosa [facility] URINE DRUG (LCMSMS) - 2020-07-13 21:46:00 Lissette Walton [facility] SYNTHETIC OPIATES PANEL Medical Branch TROPONIN I 2020-07-13 18:19:00 [place], [facility] ACTIVATED PARTIAL 2020-07-13 18:19:00 Lissette Walton [facility] ECHO ROUTINE W/DOPPLER 2020-07-13 17:22:[address] [facility] D-DIMER 2020-07-13 09:07:00 Aaron Delarosa [facility] ACTIVATED PARTIAL 2020-07-13 09:07:00 Aaron Delarosa [facility] LACTATE DEHYDROGENASE 2020-07-13 09:06:00 Aaron Delarosa [facility] FERRITIN SERUM 2020-07-13 09:06:00 Aaron Delarosa [facility] OSMOLALITY, SERUM OR 2020-07-13 09:06:00 [facility] C-REACTIVE PROTEIN 2020-07-13 09:06:00 Aaron Delarosa [facility] TROPONIN I 2020-07-13 09:06:00 Aaron Delarosa [facility] HEPATIC FUNCTION PANEL 2020-07-13 09:06:00 Aaron Delarosa [facility] ([id number]) (ALB,T.PRO,BILI [facility] T,BU/BC,ALT,AST,ALK PHOS) LIPID PANEL ([id number])(TOTAL 2020-07-13 09:06:00 Aaron Delarosa [facility] CHOLESTEROL, [facility] TRIGLYCERIDES, HDL) EXTRA TUBE LAV 2020-07-13 09:06:00 Bing Medrano [facility] PROCALCITONIN 2020-07-13 09:06:00 Aaron Delarosa [facility] CRITICAL CARE 2020-07-13 04:45:00 Donald Wilson [facility] AC ABG + LACTIC ACID 2020-07-13 02:37:00 Donald Wilson [facility] BLOOD CULTURE SCREEN 2020-07-12 23:56:00 Donald Wilson [facility] BLOOD CULTURE WORKUP 2020-07-12 23:56:00 Donald Wilson [facility] GRAM NEGATIVE BLOOD 2020-07-12 23:56:00 Donald Wilson [facility] PATHOGENS DNA Medical Branch PROBE-AEROBIC XR CHEST 1 VW 2020-07-12 23:51:38 Donald Wilson [facility] HB ECG ROUTINE & RHYTHM 2020-07-12 23:44:42 Donald Wilson [facility] STRIP [facility] BLOOD CULTURE SCREEN 2020-07-12 23:34:00 Donald Wilson [facility] TROPONIN I 2020-07-12 23:34:00 Donald Wilson [facility] COMP. METABOLIC PANEL 2020-07-12 23:34:00 Donald Wilson [facility] ([id number]) Medical Branch CBC WITH DIFF 2020-07-12 23:34:00 Donald Wilson [facility] PROTHROMBIN TIME / INR 2020-07-12 23:34:00 [facility] ACTIVATED PARTIAL 2020-07-12 23:34:00 Donald Wilson [facility] THRMPLAS VAISHALI [facility] N-TERMINAL PRO-BNP 2020-07-12 23:34:00 Donald Wilson [facility] BLOOD CULTURE WORKUP 2020-07-12 23:34:00 Donald Wilson [facility] COVID-19 (ID NOW RAPID 2020-07-12 23:33:00 Donald Wilson [facility] TESTING) Medical Branch LAB ONLY COVID 2020-07-12 23:33:[address] [facility] INTERPRETATION [facility] LACTIC ACID WHOLE BLOOD 2020-07-12 23:32:00 Donald Wilson [facility] EKG-12 LEAD 2020-07-12 23:04:29 Donald Wilson [facility] EMERGENCY DEPARTMENT 2020-07-12 06:01:00 Doctor Unassigned, No [facility] DOCUM[facility] Name Medical Branch EMERGENCY SERVICES 2020-07-12 06:01:00 Doctor Unassigned, No Uni [facility] AGREEMENTS AND Name Medical Branch AUTHORIZATIONS BASIC METABOLIC PANEL 2020-06-27 11:07:00 [facility] (NA, K, CL, CO2, GLUCOSE, Medica l Branch BUN, CREATININE, CA) VANCOMYCIN TROUGH 2020-06-27 11:07:00 Max Florian [facility] CBC WITH DIFF 2020-06-27 11:07:[address] [facility] BASIC METABOLIC PANEL 2020-06-26 11:40:00 [facility] (NA, K, CL, CO2, GLUCOSE, Medica l Branch BUN, CREATININE, CA) VANCOMYCIN TROUGH 2020-06-26 11:40:00 Jaya Tavarez [facility] CBC WITH DIFF 2020-06-26 11:40:00 [facility] VANCOMY[facility]IN TROUGH 2020-06-25 23:36:00 Brendon [facility] AMIODARONE & METABOLITE 2020-06-25 17:09:00 [facility] BAS[facility]ABOLIC PANEL 2020-06-25 11:18:00 Makenna Olivas [facility] (NA, K, CL, CO2, GLUCOSE, Medica l Branch BUN, CREATININE, CA) VANCOMYCIN TROUGH 2020-06-25 11:18:00 Brendon [facility] CBC WITH DIFF 2020-06-25 11:18:00 Brendon [facility] VANCOMYCIN TROUGH 2020-06-24 19:24:00 Brendon [facility] BASIC METABOLIC PANEL 2020-06-24 12:16:00 Makenna Olivas [facility] (NA, K, CL, CO2, GLUCOSE, Medica l Branch BUN, CREATININE, CA) CBC WITH DIFF 2020-06-24 12:16:00 Brendon [facility] VANCOMYCIN TROUGH 2020-06-23 18:11:00 Brendon [facility] BASIC METABOLIC PANEL 2020-06-23 10:23:00 [facility] (NA, K, CL, CO2, GLUCOSE, Medica l Branch BUN, CREATININE, CA) CBC WITH DIFF 2020-06-23 10:23:00 [facility]rendon [facility] BASIC METABOLIC PANEL 2020-06-22 09:57:00 [facility] (NA, K, CL, CO2, GLUCOSE, Medica l Branch BUN, CREATININE, CA) CBC WITH DIFF 2020-06-22 09:57:00 [facility] WOUND/ASPIRATE OR ABSCESS 2020-06-21 22:23:00 Damian Castorena [facility] CULTURE Medical Branch WOUND CULTURE 2020-06-21 22:23:00 Damian Castorena [facility] XR CHEST 1 VW 2020-06-21 21:47:55 Demetrius Castorenaian Vania [facility] COVID-19 (ID NOW RAPID 2020-06-21 20:30:00 Damian Castorena [facility] TESTING) Medical Branch LAB ONLY COVID 2020-06-21 20:30:00 Damian Castorena [facility] BLOOD CULTURE SCREEN 2020-06-21 20:29:00 Damian Castorena [facility] CREATINE KINASE 2020-06-21 20:29:00 Damian Castorena [facility] HEPATIC FUNCTION PANEL 2020-06-21 20:29:00 Damian Castorena [facility] ([id number]) (ALB,T.PRO,BILI Medical Branch T,BU/BC,ALT,AST,ALK PHOS) BASIC METABOLIC PANEL 2020-06-21 20:29:00 Damian Castorena [facility] (NA, K, CL, CO2, GLUCOSE, Medica l Branch BUN, CREATININE, CA) SEDIMENTATION RATE 2020-06-21 20:29:00 Damian Castorena [facility] CBC WITH DIFF 2020-06-21 20:29:00 Damian Castorena [facility] HIGH SENSITIVITY CRP 2020-06-21 20:29:00 Damian Castorena [facility] PROCALCITONIN 2020-06-21 20:29:00 Goldie Rodriguez [facility] LACTIC ACID WHOLE BLOOD 2020-06-21 20:28:00 Damian Castorena [facility] BLOOD CULTURE SCREEN 2020-06-21 20:15:00 Castorena, Damian W [facility] Plan of Care Planned Activity Planned Date Details Comments Source Future Scheduled 2021-06-13 COVID-19 VACCINE (1) [facility] Test 18:34:58 [code = COVID-19 VACCINE (1)] Future Scheduled 2021-06-13 65+ [facility]UMOCOCCAL [facility] Test 18:34:58 VACCINE (1 of 2 - PPSV23) [code = 65+ PNEUMOCOCCAL VACCINE (1 of 2 - PPSV23)] Future Scheduled 2021-06-13 Hepatitis C screening [facility] Test 18:34:58 (procedure) [code = 381789282] Future Scheduled 2021-06-13 COLONOSCOPY SCREENING [facility] Test 18:34:58 [code = COLONOSCOPY SCREENING] Future Scheduled 2021-06-13 SHINGLES VACCINES (#1) [facility] 18:34:58 [code = SHINGLES VACCINES (#1)] Future Scheduled 2021-06-13 INFLUENZA VACCINE [facility] 18:34:58 [code = INFLUENZA VACCINE] Encounters Start End Encounter Admission Attending Care Care Encounter Source Date/Time Date/Time Type Type Clinicians Facility Department ID 2021-07-19 Outpatient [id number] ENCPL REF [id number] ENCPL 13:25:09 [id number] 2021-07-19 Outpatient 3 [id number] ENCKY SAIMA [id number] ENCKY 13:10:09 2021-07-19 Outpatient 3 [id number] ENCKY SAIMA [id number] ENCKY 13:09:10 [id number] 2021-07-19 Outpatient 3 [id number] ENCKY REF [id number] ENCKY 13:08:40 2021-07-19 Outpatient 3 [id number] ENCPL REF [id number] ENCPL 12:42:56 0816 2021-07-19 Outpatient 3 [id number] ENCPL REF [id number] ENCPL 12:02:03 0428 2021-07-19 Outpatient 3 ZULMA ENCSL OTH [id number] ENCSL 11:35:44 RADHA [id number] 2021-07-19 Outpatient 3 [id number] ENCSL REF [id number] ENCSL 11:35:17 [id number] 2021-07-19 Outpatient 3 LOYD ENCSL OT [id number] ENCSL 11:29:04 CHA [id number] 2021-07-19 Outpatient 3 CINDY HARPSCortez OT [id number] ENCSL 11:28:25 CHA 13286 2021-07-19 Outpatient 3 [id number] ENCSL REF [id number] ENCSL 11:27:29 [id number] 2021-07-19 Outpatient 3 [id number] ENCSL REF [id number] ENCSL 11:27:10 [id number] 2021-07-19 Outpatient 3 [id number] ENCSL OT [id number] ENCSL 10:12:52 [id number] 2021-07-19 Outpatient 3 [id number] ENCPL REF [id number] ENCPL 10:12:50 [id number] 2021-07-19 Outpatient 3 [id number] ENCSL REF [id number] ENCSL 10:12:15 [id number] 2021-07-19 Outpatient 3 [id number] ENCSL REF [id number] ENCSL 10:11:48 [id number] 2020-01-21 Outpatient DONNA SUMMERS ENCCLR ENCCLR [id number] ENCCLR 14:55:32 ADMISSION MALISSA 2021-11-16 2021-11-16 Emergency X [facility] ERT [id number] Univers 11:41:00 13:46:00 ARMANDO barrera [facility] 2021-11-16 2021-11-16 Emergency [facility] [id number] Univers 11:41:00 13:46:00 Armando OBRIEN [id number] i [facility] [id number] [facility] [id number] [address] 2021-09-29 2021-09-29 Outpatient [id number] DISP DISP [id number] Dispatc 01:43:00 01:43:00 3 [facility] 2021-09-29 2021-09-29 Outpatient [id number] DISP DISP [id number] Dispatc 01:43:00 01:43:00 3 [facility] 2021-09-28 2021-09-28 Outpatient [id number] DISP DISP [id number] Dispatc 11:19:00 11:19:00 3 [id number] [facility] 2021-09-26 2021-09-26 Outpatient [id number] DISP DISP 606 - Dispatc 09:18:00 09:18:00 3 h [facility] 2021-09-24 2021-09-24 Outpatient [id number] DISP DISP 606 Dispatc 05:20:00 05:20:00 3 [id number] h [facility] 2021-09-24 2021-09-24 Outpatient John, DISP DISP [id number] 00:00:00 00:00:00 George Daniels [id number] 2021-07-09 2021-07-09 Outpatient [facility] [id number] 19:49:00 19:49:00 -[id number] [facility] 2021-07-03 2021-07-03 Outpatient [facility] [id number] 01:34:00 01:34:00 -[id number] [facility] 2021-07-02 2021-07-02 Outpatient [facility] [id number] 00:54:00 00:54:00 -[id number] [facility] 2021-05-04 2021-07-02 Outpatient DARIUS ARTHUR, ENCCLR ENCCLR [id number] ENCCLR 00:00:00 00:00:00 Carissa RANDEE 2021-06-30 2021-06-30 Outpatient [facility] [id number] 10:00:00 10:00:00 -[id number] [facility] 2021-06-29 2021-06-29 Outpatient [facility] [id number] 00:08:00 00:08:00 -[id number] [facility] 2021-06-28 2021-06-28 Emergency X MARIBEL WALLS ERT [id number] Univers 09:23:00 18:59:00 ARMANDO barrera [facility] 2021-06-28 2021-06-28 Emergency MARIBEL Walls [id number] Univers 09:23:00 18:59:00 Armando OBRIEN [id number] i ty of [place] [id number] [facility] [id number] [facility] 084 Branch 2021-05-25 2021-05-25 Transition FARAZ Hayes [id number] Univers 00:00:00 00:00:00 of Care Brooke B DANIEL [id number] [id number] [id number] [facility] 403 Branch 2021-05-19 2021-05-24 Inpatient X MADDI [facility] CORIE [id number] Univers 14:34:00 21:30:00 АЛЕКСАНДР barrera [facility] 2021-05-19 2021-05-24 [facility] Sandra Summers [facility] [id number] Univers 14:34:00 21:30:00 Encounter Александр LindaOUSMANE [id number] ity [facility] [id number] [facility] [id number] [place] [id number] Branch 2021-05-04 2021-05-04 Outpatient RECERTIFIC SANDHYA, ENCCLR ENCCLR [id number] ENCCLR 00:00:00 00:00:00 ATION RANDEE 2020-11-06 2021-03-05 Outpatient RECERTIFIC ILBRITTANYONWU, ENCCLR ENCCLR [id number] ENCCLR 00:00:00 00:00:00 ATION HUBERT 2021-02-06 2021-02-06 Transition Faraz Hayes [id number] Univers 00:00:00 00:00:00 of Care Brooke B Daniel [id number] [id number] [id number] [facility] 403 Branch 2021-01-22 2021-02-05 Inpatient X HALLMAN, [facility] CORIE [id number] Univers 23:13:00 20:34:00 OWEN barrera [facility] 2021-01-22 2021-02-05 [facility] Sandra Summers [id number] [id number] Univers 23:13:00 20:34:00 Encounter Armando Walls Porfirio [id number] [facility] 4.2.7.2.686 Louise CabreraOwen veronica [phone] Medical Brenda Vee [address] 2021-01-30 2021-01-30 Surgery LorenKendy 1.2.840.114 [id number] Univers 09:00:00 11:11:00 Jeffery Monroy 350.1.13.10 ity of [facility] 4.2.7.2.686 Dean as [phone] [facility] [address] 2020-11-16 2020-11-16 Orders Doctor ALMAS 1.2.840.114 [id number] Univers 00:00:00 00:00:00 Only Unassigned, PORFIRIO 350.1.13.10 ity of [place] [facility] 4.2.7.2.686 Dean as [phone] [facility] [address] 2020-11-06 2020-11-06 Outpatient DARIUS BYRD, ENCCLR ENCCLR 2 [id number] ENCCLR 00:00:00 00:00:00 N HUBERT 2020-09-27 2020-09-27 Outpatient KNOW, HCABM OPLA [id number] [facility] 09:30:00 09:30:00 DOES_NOT [id number] [facility] 2020-08-02 2020-08-11 [facility] Trihealthyovanny Wolf 1.2.840.1 [id number] Methodi 19:32:00 20:24:00 Encounter Jesus Mac 58734.1.[address] AvalosRuddy 3.430.2.7 [facility] .3.459841 l Madison Claudio .8 2020-08-04 2020-08-04 Anesthesia Gene, 1.2.840.1 [id number] 987 [id number] Methodi 13:16:00 14:29:00 Event Emmycandice Heaton 98312.1.[address] 3.430.2.7 Hospit a .3.899302 l .8 2020-08-04 2020-08-04 Surgery Yaakovian, 1.2.840.1 [id number] Methodi 13:00:00 14:05:[address] 3.430.2.7 Hospit a .3.004366 l .8 2020-08-02 2020-08-02 Travel 1.2.840.1 1.2.884.547 0893 [id number] Methodi 00:00:00 00:00:[address] 3.430.2.7 0.2.7.3.698 Ho spita .3.844698 084.8 l .8 2020-07-27 2020-07-27 Outpatient Carmita WALKER [facility] RAD [id number] 140 [facility] 17:39[facility]00 23:59:00 [facility] 2020-07-21 2020-07-25 [facility] 1.2.840.1 [id number] 1088 [id number] Methodi 19:57:00 21:14:00 Encounter Jesus Mac 98157.1.1 717 Psychiatric 3.430.2.7 H ospita Demian Herrera Sunday .3.253272 l .8 2020-01-25 2020-07-22 Outpatient RECERTIFIC GLENN BYRD ENCCLR 2 [id number] ENCCLR 00:00:00 00:00:00 ATION HUBERT 2020-07-20 2020-07-20 Transition Faraz Gonzales 1.2.840.114 813 [id number] Univers 00:00:00 00:00:00 of Care Ema Daniel 350.1.13.10 it y [phone] [address] [address] 2020-07-12 2020-07-19 Inpatient X CHERYL [facility] [id number] Univers 17:05:00 20:05:00 LOREN barrera [facility] 2020-07-12 2020-07-19 [facility] Donald Wilson 1.2.840.1 14 [id number] [facility] 17:05:00 20:05:00 Encounter Donald [facility]13.10 [facility] [facility] [phone] Medical [facility] 097 [facility] Jay Dee 2020-06-21 2020-06-27 [facility] Damian Castorena [facility] 1.2.840.114 [id number] [facility] 13:48:00 21:40:00 Encounter [facility]13.[facility] 4.2.7.2.686 [facility] [phone] [address] 2020-06-21 2020-06-21 Emergency X DAMIAN CASTORENA [facility] ERT 1030 [id number] Univers 13:48:00 13:48:00 ity [facility] 2020-01-25 2020-01-25 Outpatient RECERTIFIC ILOCHONWU, ENCCLR ENCCLR 2 [id number] ENCCLR 00:00:00 00:00:00 [facility] HUBERT 2020-01-25 2020-01-25 Outpatient RECERTIFIC ILOCHONWU, ENCCLR ENCCLR 2 [id number] ENCCLR 00:00:00 00:00:00 [facility] HUBERT 2020-01-06 2020-01-22 Inpatient 3 [place] [address]- 2020 ENCPL 18:35:00 12:10:00 Malissa 0716 2019-03-09 2019-03-09 [facility] 26 [id number] Common 13:30:00 13:30:00 [facility] it [facility] 2018-12-01 2018-12-01 [facility] 23 25171 Common 13:00:00 13:00:00 [facility] it Road [facility] 2018-06-02 2018-06-02 [facility] 22 [id number] Common 13:00:00 13:00:00 [facility] it [facility] 2018-04-02 2018-04-02 Outpatient Hector Muniz 14 [id number] Common 13:00:00 13:00:00 [facility] it [facility] Results Test Description Test Time Test Comments Results Result Comments Source COMP. Metabolic Panel (55731) 2021-11-16 17:40:16 Test Item Value Reference Range Interpretation Comme nts NA (test code = 8396978115) 138 mmol/L 135-145 K (test code = 9820664113) 4.0 mmol/L 3.5-5.0 CL (test code = 1651975258) 103 mmol/L 98-108 CO2 TOTAL (test code = 2179083027) 27 mmol/L 23-31 AGAP (test code = 9992820316) 2-16 BUN (test code = 7455649788) 10 mg/dL 7-23 GLUCOSE (test code = 9046472724) 134 mg/dL 70-110 H CREATININE (test code = 0.50 mg/dL 0.60-1.25 L 2179787414) TOTAL BILI (test code = 0.7 mg/dL 0.1-1.3 7909546903) CALCIUM (test code = 0822003675) 8.7 mg/dL 8.6-10.6 T PROTEIN (test code = 8226959735) 6.9 g/dL 6.3-8.2 ALBUMIN (test code = 7225994829) 3.7 g/dL 3.5-5.0 ALK PHOS (test code = 1157765748) 113 U/L 34-122 ALTv (test code = 1742-6) 16 U/L 5-50 AST(SGOT) (test code = 1651143420) 28 U/L 13-40 eGFR (test code = 2459559009) mL/min/1.73m2 HAVEN (test code = HAVEN) Association [...] tests). Lab Interpretation (test code = Abnormal 56235-1) [facility] [id number] 17:24:59 Test Item Value Reference Range Interpretation Comments WBC (test code = See_Comment [Automated 8190-2) message] The sy stem which generated this result transmitted reference range : 4.20 - 10.70 10*3/?L. The reference range was not used to interpret this result as normal/abnormal . RBC (test code = See_Comment [Automated 430-8) message] The sy stem which generated this result transmitted reference range : 4.26 - 5.52 10*6/?L. The reference range was not used to interpret this result as normal/abnormal . HGB (test code = 12.9 g/dL 12.2-16.4 718-7) HCT (test code = 40.3 % 38.4-49.3 4544-3) MCV (test code = 82.4 fL 81.7-95.6 787-2) MCH (test code = 26.4 pg 26.1-32.7 785-6) MCHC (test code = 32.0 g/dL 31.2-35.0 786-4) RDW-SD (test code = 47.4 fL 38.5-51.6 56993-5) RDW-CV (test code = 16.0 % 12.1-15.4 H 788-0) PLT (test code = See_Comment [Automated 777-3) message] The sy stem which generated this result transmitted reference range : 150 - 328 10*3/ ?L. The reference r fernando was not used to interpret this result as normal/abnormal . MPV (test code = 8.2 fL 9.8-13.0 L 07978-0) NRBC/100 WBC (test See_Comment [Automat ed code = 6757090147) message] The system which generated this result transmitted reference range : 0.0 - 10.0 /100 WBCs. The refer ence range was not u sed to interpret th is result as normal/abnormal . NRBC x10^3 (test code <0.01 See_Comment [Auto mated = 5596641956) message] The s ystem which generated this result transmitted reference range : 10*3/?L. The reference range was not used to interpret this result as normal/abnormal . GRAN MAT (NEUT) % 70.9 % (test code = 770-8) IMM GRAN % (test code 0.50 % = 3865221932) LYMPH % (test code = 17.9 % 736-9) MONO % (test code = 7.7 % 5905-5) EOS % (test code = 2.3 % 713-8) BASO % (test code = 0.7 % 706-2) GRAN MAT x10^3(ANC) 3.96 10*3/uL 1.99-6.95 (test code = 8112021343) IMM GRAN x10^3 (test 0.03 10*3/uL 0.00-0.06 code = 7068824950) LYMPH x10^3 (test code 1.00 10*3/uL 1.09-3.23 L = 731-0) MONO x10^3 (test code 0.43 10*3/uL 0.36-1.02 = 742-7) EOS x10^3 (test code = 0.13 10*3/uL 0.06-0.53 711-2) BASO x10^3 (test code 0.04 10*3/uL 0.01-0.09 = 704-7) Lab Interpretation Abnormal (test code = 80394-8) [facility] [id number] 17:10:05 Test Item Value Reference Range Interpretation Comments LACTIC ACID (test code = 2.24 mmol/L 0.50-2.20 H 2541136335) Lab Interpretation (test code = Abnormal 35724-8) [facility]. METABOLIC PANEL (37367)2021-06-28 16:08:49 Test Item Value Reference Range Interpretation Comments NA (test code = 133 mmol/L 135-145 L 9915720266) K (test code = 3.9 mmol/L 3.5-5.0 2196350884) CL (test code = 101 mmol/L 98-108 8805339548) CO2 TOTAL (test code = 26 mmol/L 23-31 3297730192) AGAP (test code = 2-16 9525848135) BUN (test code = 19 mg/dL 7-23 8281691711) GLUCOSE (test code = 157 mg/dL 70-110 H 4965690038) CREATININE (test code = 0.68 mg/dL 0.60-1.25 5635192351) TOTAL BILI (test code = 1.0 mg/dL 0.1-1.6 6875645568) CALCIUM (test code = 8.7 mg/dL 8.6-10.6 0031352451) T PROTEIN (test code = 6.6 g/dL 6.3-8.2 8959229695) ALBUMIN (test code = 3.4 g/dL 3.5-5.0 L 1801160201) ALK PHOS (test code = 178 U/L 34-122 H 8522278497) ALTv (test code = 27 U/L 5-50 1742-6) AST(SGOT) (test code = 32 U/L 13-40 6516747428) eGFR (test code = mL/min/1.73m2 5369125894) HAVEN (test code = HAVEN) Association of [...] tests). Lab Interpretation Abnormal (test code = 12888-0) [facility] WITH [id number] 15:51:06 Test Item Value Reference Range Interpretation Comments WBC (test code = See_Comment [Automated 5253-2) message] The sy stem which generated this result transmitted reference range : 4.20 - 10.70 10*3/?L. The reference range was not used to interpret this result as normal/abnormal . RBC (test code = See_Comment [Automated 251-7) message] The sy stem which generated this [...] (test code = 55.8 fL 38.5-51.6 H 01014-4) RDW-CV (test code = 18.8 % 12.1-15.4 H 788-0) PLT (test code = See_Comment [Automated 777-3) message] The sy stem which generated this result transmitted reference range : 150 - 328 10*3/ ?L. The reference r fernando was not used to interpret this result as normal/abnormal . MPV (test code = 8.3 fL 9.8-13.0 L 92048-6) NRBC/100 WBC (test See_Comment [Automat ed code = 6359375600) message] The system which generated this result transmitted reference range : 0.0 - 10.0 /100 WBCs. The refer ence range was not u sed to interpret th is result as normal/abnormal . NRBC x10^3 (test code <0.01 See_Comment [Auto mated = 6477067070) message] The s ystem which generated this result transmitted reference range : 10*3/?L. The reference range was not used to interpret this result as normal/abnormal . GRAN MAT (NEUT) % 72.2 % (test code = 770-8) IMM GRAN % (test code 1.50 % = 1067644495) LYMPH % (test code = 18.0 % 736-9) MONO % (test code = 6.1 % 5905-5) EOS % (test code = 1.5 % 713-8) BASO % (test code = 0.7 % 706-2) GRAN MAT x10^3(ANC) 5.28 10*3/uL 1.99-6.95 (test code = 7829237642) IMM GRAN x10^3 (test 0.11 10*3/uL 0.00-0.06 H code = 2943080924) LYMPH x10^3 (test code 1.32 10*3/uL 1.09-3.23 = 731-0) MONO x10^3 (test code 0.45 10*3/uL 0.36-1.02 = 742-7) EOS x10^3 (test code = 0.11 10*3/uL 0.06-0.53 711-2) BASO x10^3 (test code 0.05 10*3/uL 0.01-0.09 = 704-7) Lab Interpretation Abnormal (test code = 91405-6) [facility] METABOLIC PANEL (NA, K, CL, CO2, GLUCOSE, BUN, CREATININE, CA)2021-05-23 12:26:40 Test Item Value Reference Range Interpretation Comments NA (test code = 134 mmol/L 135-145 L 7885711020) K (test code = 4.2 mmol/L 3.5-5.0 3980109113) CL (test code = 104 mmol/L 98-108 0393333450) CO2 TOTAL (test code = 26 mmol/L 23-31 5829398405) AGAP (test code = 2-16 7304076620) BUN (test code = 24 mg/dL 7-23 H 3884822202) GLUCOSE (test code = 99 mg/dL 70-110 3556953442) CREATININE (test code = 0.52 mg/dL 0.60-1.25 L 9727656098) CALCIUM (test code = 8.8 mg/dL 8.6-10.6 6835613041) eGFR (test code = mL/min/1.73m2 0962627411) HAVEN (test code = HAVEN) Association of [...] tests). Lab Interpretation Abnormal (test code = 86222-5) [facility] WITH [id number] 11:46:55 Test Item Value Reference Range Interpretation Comments WBC (test code = See_Comment [Automated 8990-2) message] The sy stem which generated this [...] RDW-SD (test code = 48.4 fL 38.5-51.6 99003-0) RDW-CV (test code = 16.8 % 12.1-15.4 H 788-0) PLT (test code = See_Comment L [Automated 777-3) message] The sy stem which generated this result transmitted reference range : 150 - 328 10*3/ ?L. The reference r fernando was not used to interpret this result as normal/abnormal . MPV (test code = 8.3 fL 9.8-13.0 L 72174-8) NRBC/100 WBC (test See_Comment [Automat ed code = 4878083362) message] The system which generated this result transmitted reference range : 0.0 - 10.0 /100 WBCs. The refer ence range was not u sed to interpret th is result as normal/abnormal . NRBC x10^3 (test code <0.01 See_Comment [Auto mated = 8509735614) message] The s ystem which generated this result transmitted reference range : 10*3/?L. The reference range was not used to interpret this result as normal/abnormal . GRAN MAT (NEUT) % 63.2 % (test code = 770-8) IMM GRAN % (test code 0.70 % = 8403849680) LYMPH % (test code = 23.8 % 736-9) MONO % (test code = 7.7 % 5905-5) EOS % (test code = 3.9 % 713-8) BASO % (test code = 0.7 % 706-2) GRAN MAT x10^3(ANC) 3.84 10*3/uL 1.99-6.95 (test code = 7943778565) IMM GRAN x10^3 (test 0.04 10*3/uL 0.00-0.06 code = 2022514629) LYMPH x10^3 (test code 1.45 10*3/uL 1.09-3.23 = 731-0) MONO x10^3 (test code 0.47 10*3/uL 0.36-1.02 = 742-7) EOS x10^3 (test code = 0.24 10*3/uL 0.06-0.53 711-2) BASO x10^3 (test code 0.04 10*3/uL 0.01-0.09 = 704-7) Lab Interpretation Abnormal (test code = 62465-5) [facility] METABOLIC PANEL (NA, K, CL, CO2, GLUCOSE, BUN, CREATININE, CA)2021-05-21 12:53:06 Test Item Value Reference Range Interpretation Comments NA (test code = 133 mmol/L 135-145 L 8324497579) K (test code = 4.4 mmol/L 3.5-5.0 6643562241) CL (test code = 102 mmol/L 98-108 1469784482) CO2 TOTAL (test code = 26 mmol/L 23-31 5150771009) AGAP (test code = 2-16 2294155590) BUN (test code = 23 mg/dL 7-23 8476792599) GLUCOSE (test code = 97 mg/dL 70-110 1511354891) CREATININE (test code = 0.57 mg/dL 0.60-1.25 L 9427229528) CALCIUM (test code = 8.9 mg/dL 8.6-10.6 0248052758) eGFR (test code = mL/min/1.73m2 3658040857) HAVEN (test code = HAVEN) Association of [...] tests). Lab Interpretation Abnormal (test code = 94920-9) [facility] WITH [id number] 12:25:05 Test Item Value Reference Range Interpretation [...] RDW-SD (test code = 48.4 fL 38.5-51.6 96585-8) RDW-CV (test code = 16.6 % 12.1-15.4 H 788-0) PLT (test code = See_Comment L [Automated 777-3) message] The sy stem which generated this result transmitted reference range : 150 - 328 10*3/ ?L. The reference r fernando was not used to interpret this result as normal/abnormal . MPV (test code = 8.7 fL 9.8-13.0 L 87720-0) NRBC/100 WBC (test See_Comment [Automat ed code = 7406706161) message] The system which generated this result transmitted reference range : 0.0 - 10.0 /100 WBCs. The refer ence range was not u sed to interpret th is result as normal/abnormal . NRBC x10^3 (test code <0.01 See_Comment [Auto mated = 5367992643) message] The s ystem which generated this result transmitted reference range : 10*3/?L. The reference range was not used to interpret this result as normal/abnormal . GRAN MAT (NEUT) % 60.5 % (test code = 770-8) IMM GRAN % (test code 0.80 % = 2554440316) LYMPH % (test code = 25.7 % 736-9) MONO % (test code = 8.1 % 5905-5) EOS % (test code = 4.3 % 713-8) BASO % (test code = 0.6 % 706-2) GRAN MAT x10^3(ANC) 3.98 10*3/uL 1.99-6.95 (test code = 4049315299) IMM GRAN x10^3 (test 0.05 10*3/uL 0.00-0.06 code = 4391417912) LYMPH x10^3 (test code 1.69 10*3/uL 1.09-3.23 = 731-0) MONO x10^3 (test code 0.53 10*3/uL 0.36-1.02 = 742-7) EOS x10^3 (test code = 0.28 10*3/uL 0.06-0.53 711-2) BASO x10^3 (test code 0.04 10*3/uL 0.01-0.09 = 704-7) Lab Interpretation Abnormal (test code = 79528-9) [facility] Metabolic Panel (NA, K, CL, CO2, GLUCOSE, BUN, CREATININE, CA)2021-05-20 13:07:41 Test Item Value Reference Range Interpretation Comments NA (test code = 134 mmol/L 135-145 L 7768195768) K (test code = 4.3 mmol/L 3.5-5.0 2325761769) CL (test code = 102 mmol/L 98-108 3044037530) CO2 TOTAL (test code = 27 mmol/L 23-31 6342472148) AGAP (test code = 2-16 6790207993) BUN (test code = 21 mg/dL 7-23 1652233552) GLUCOSE (test code = 95 mg/dL 70-110 2437139201) CREATININE (test code = 0.61 mg/dL 0.60-1.25 2148110753) CALCIUM (test code = 8.9 mg/dL 8.6-10.6 6245899886) eGFR (test code = mL/min/1.73m2 0911336369) HAVEN (test code = HAVEN) Association of [...] tests). Lab Interpretation Abnormal (test code = 08661-0) [facility] with [id number] 12:17:40 Test Item Value Reference Range Interpretation Comments WBC (test code = See_Comment [Automated 6947-2) message] The sy stem which generated this result transmitted reference range : 4.20 - 10.70 10*3/?L. The reference range was not used to interpret this result as normal/abnormal . RBC (test code = See_Comment [Automated 829-5) message] The sy stem which generated this result transmitted reference range : 4.26 - 5.52 10*6/?L. The reference range was not used to interpret this result as normal/abnormal . HGB (test code = 13.0 g/dL 12.2-16.4 898-7) HCT (test code = 41.2 % 38.4-49.3 4544-3) MCV (test code = 82.2 fL 81.7-95.6 787-2) MCH (test code = 25.9 pg 26.1-32.7 L 785-6) MCHC (test code = 31.6 g/dL 31.2-35.0 786-4) RDW-SD (test code = 46.6 fL 38.5-51.6 09243-3) RDW-CV (test code = 16.2 % 12.1-15.4 H 788-0) PLT (test code = See_Comment [Automated 777-3) message] The sy stem which generated this result transmitted reference range : 150 - 328 10*3/ ?L. The reference r fernando was not used to interpret this result as normal/abnormal . MPV (test code = 8.9 fL 9.8-13.0 L 37738-4) NRBC/100 WBC (test See_Comment [Automat ed code = 5226026221) message] The system which generated this result transmitted reference range : 0.0 - 10.0 /100 WBCs. The refer ence range was not u sed to interpret th is result as normal/abnormal . NRBC x10^3 (test code <0.01 See_Comment [Auto mated = 0424394233) message] The s ystem which generated this result transmitted reference range : 10*3/?L. The reference range was not used to interpret this result as normal/abnormal . GRAN MAT (NEUT) % 64.8 % (test code = 770-8) IMM GRAN % (test code 0.60 % = 7459449772) LYMPH % (test code = 23.5 % 736-9) MONO % (test code = 7.3 % 5905-5) EOS % (test code = 3.2 % 713-8) BASO % (test code = 0.6 % 706-2) GRAN MAT x10^3(ANC) 4.08 10*3/uL 1.99-6.95 (test code = 7074972340) IMM GRAN x10^3 (test 0.04 10*3/uL 0.00-0.06 code = 5909959426) LYMPH x10^3 (test code 1.48 10*3/uL 1.09-3.23 = 731-0) MONO x10^3 (test code 0.46 10*3/uL 0.36-1.02 = 742-7) EOS x10^3 (test code = 0.20 10*3/uL 0.06-0.53 711-2) BASO x10^3 (test code 0.04 10*3/uL 0.01-0.09 = 704-7) Lab Interpretation Abnormal (test code = 39860-0) [facility]. METABOLIC PANEL (58518)2021-05-19 22:15:02 Test Item Value Reference Range Interpretation Comments NA (test code = 134 mmol/L 135-145 L 7226921432) K (test code = 3.9 mmol/L 3.5-5.0 1958879374) CL (test code = 100 mmol/L 98-108 0460503819) CO2 TOTAL (test code = 27 mmol/L 23-31 5773590179) AGAP (test code = 2-16 3403698827) BUN (test code = 19 mg/dL 7-23 4409495239) GLUCOSE (test code = 132 mg/dL 70-110 H 2133233817) CREATININE (test code = 0.62 mg/dL 0.60-1.25 8763723228) TOTAL BILI (test code = 0.8 mg/dL 0.1-1.1 6209908721) CALCIUM (test code = 9.1 mg/dL 8.6-10.6 3914464043) T PROTEIN (test code = 6.4 g/dL 6.3-8.2 8114665935) ALBUMIN (test code = 3.6 g/dL 3.5-5.0 5496668249) ALK PHOS (test code = 109 U/L 34-122 8138788878) ALTv (test code = 25 U/L 5-50 2-6) AST(SGOT) (test code = 32 U/L 13-40 7936731429) eGFR (test code = mL/min/1.73m2 2878111089) HAVEN (test code = HAVEN) Association of [...] tests). Lab Interpretation Abnormal (test code = 99170-4) [facility] WITH [id number] 21:47:18 Test Item Value Reference Range Interpretation Comments WBC (test code = See_Comment [Automated 1802-2) message] The sy stem which generated this result transmitted reference range : 4.20 - 10.70 10*3/?L. The reference range was not used to interpret this result as normal/abnormal . RBC (test code = See_Comment [Automated 706-1) message] The sy stem which generated this [...] RDW-SD (test code = 47.0 fL 38.5-51.6 57372-2) RDW-CV (test code = 16.1 % 12.1-15.4 H 788-0) PLT (test code = See_Comment [Automated 777-3) message] The sy stem which generated this result transmitted reference range : 150 - 328 10*3/ ?L. The reference r fernando was not used to interpret this result as normal/abnormal . MPV (test code = 8.5 fL 9.8-13.0 L 05814-9) NRBC/100 WBC (test See_Comment [Automat ed code = 6630886974) message] The system which generated this result transmitted reference range : 0.0 - 10.0 /100 WBCs. The refer ence range was not u sed to interpret th is result as normal/abnormal . NRBC x10^3 (test code <0.01 See_Comment [Auto mated = 6253096690) message] The s ystem which generated this result transmitted reference range : 10*3/?L. The reference range was not used to interpret this result as normal/abnormal . GRAN MAT (NEUT) % 73.7 % (test code = 770-8) IMM GRAN % (test code 0.60 % = 1929449416) LYMPH % (test code = 16.3 % 736-9) MONO % (test code = 6.2 % 5905-5) EOS % (test code = 2.6 % 713-8) BASO % (test code = 0.6 % 706-2) GRAN MAT x10^3(ANC) 5.70 10*3/uL 1.99-6.95 (test code = 2511989669) IMM GRAN x10^3 (test 0.05 10*3/uL 0.00-0.06 code = 7452160347) LYMPH x10^3 (test code 1.26 10*3/uL 1.09-3.23 = 731-0) MONO x10^3 (test code 0.48 10*3/uL 0.36-1.02 = 742-7) EOS x10^3 (test code = 0.20 10*3/uL 0.06-0.53 711-2) BASO x10^3 (test code 0.05 10*3/uL 0.01-0.09 = 704-7) Lab Interpretation Abnormal (test code = 15349-2) [id number] 21:17:28 Test Item Value Reference Range Interpretation Comments IRON (test code = 6171374754) 22 ug/dL 50-160 L TIBC (test code = 0702709319) 272 ug/dL 250-410 % FE SAT (test code = 7425249781) 8 % 20-50 L Lab Interpretation (test code = Abnormal 53184-0) [facility] [id number] 16:57:37 Test Item Value Reference Range Interpretation Comments FERRITIN (test code = 58.1 ng/mL 18.0-464.0 1428964354) HAVEN (test code = HAVEN) Biotin has been reported to cause a negative bias, interpret results relative to patient's use of biotin. Lab Interpretation (test Normal code = 07177-8) [facility] METABOLIC PANEL (NA, K, CL, CO2, GLUCOSE, BUN, CREATININE, CA)2021-02-05 10:07:46 Test Item Value Reference Range Interpretation Comments NA (test code = 133 mmol/L 135-145 L 9852597069) K (test code = 3.7 mmol/L 3.5-5.0 1236539948) CL (test code = 101 mmol/L 98-108 9595914399) CO2 TOTAL (test code = 30 mmol/L 23-31 5522257149) AGAP (test code = 2-16 3505746803) BUN (test code = 13 mg/dL 7-23 4094650208) GLUCOSE (test code = 119 mg/dL 70-110 H 3874925630) CREATININE (test code = 0.68 mg/dL 0.60-1.25 4152982041) CALCIUM (test code = 8.1 mg/dL 8.6-10.6 L 6994119506) eGFR (test code = mL/min/1.73m2 9085802268) HAVEN (test code = HAVEN) Association of [...] tests). Lab Interpretation Abnormal (test code = 47521-0) [facility] 10:07:46 Test Item Value Reference Range Interpretation Comments MAGNESIUM (test code = 2739457249) 1.5 mg/dL 1.7-2.4 L Lab Interpretation (test code = Abnormal 73827-5) [facility] Center[facility] WITHOUT [id number] 09:51:43 Test Item Value Reference Range Interpretation Comments WBC (test code = 6690-2) See_Comment [A utomated message] The system [employer] generated this result transmit josé antonio reference range : 4.20 - 10.70 10*3/?L. The reference range was not used to interpret this result as normal/abnormal . RBC (test code = 789-8) See_Comment L [Au tomated message] The system [employer] generated this result transmit josé antonio reference [...] 777-3) See_Comment [Au tomated message] The system [facility] generated this result transmit josé antonio reference range : 150 - 328 10*3/?L. The reference range was not used to interpret this result as normal/abnormal . MPV (test code = 8.9 fL 9.8-13.0 L 69657-4) RDW-CV (test code = 18.8 % 12.1-15.4 H 788-0) RDW-SD (test code = 56.2 fL 38.5-51.6 H 07298-2) NRBC x10^3 (test code = <0.01 See_Comment [Au tomated message] [id number]) The system [facility] generated this result transmit josé antonio reference range : 10*3/?L. The reference range was not used to interpret this result as normal/abnormal . NRBC/100 WBC (test code See_Comment [Au tomated message] = 8562243163) The system [facility] generated this result transmit josé antonio reference range : 0.0 - 10.0 /100 WBC s. The reference r fernando was not used to interpret this result as normal/abnormal . IPF % (test code = 9645597268) Lab Interpretation (test Abnormal code = 20520-9) [facility] METABOLIC PANEL (NA, K, CL, CO2, GLUCOSE, BUN, CREATININE, CA)2021-02-04 09:53:14 Test Item Value Reference Range Interpretation Comments NA (test code = 134 mmol/L 135-145 L 8109924949) K (test code = 3.7 mmol/L 3.5-5.0 4723865780) CL (test code = 100 mmol/L 98-108 8548981782) CO2 TOTAL (test code = 32 mmol/L 23-31 H 6286986907) AGAP (test code = 2-16 6520671384) BUN (test code = 14 mg/dL 7-23 9232435965) GLUCOSE (test code = 100 mg/dL 70-110 1039684797) CREATININE (test code = 0.65 mg/dL 0.60-1.25 8097614770) CALCIUM (test code = 8.3 mg/dL 8.6-10.6 L 3999392416) eGFR (test code = mL/min/1.73m2 8315523181) HAVEN (test code = HAVEN) Association of [...] tests). Lab Interpretation Abnormal (test code = 26158-4) [facility] Test Item Value Reference Range Interpretation Comments MAGNESIUM (test code = 5926788293) 1.8 mg/dL 1.7-2.4 Lab Interpretation (test code = Normal 90204-3) [facility] WITHOUT [id number] 09:27:28 Test Item Value Reference Range Interpretation Comments WBC (test code = 6690-2) See_Comment [A utomated message] The system [employer] generated this result transmit josé antonio reference range : 4.20 - 10.70 10*3/?L. The reference range was not used to interpret this result as normal/abnormal . RBC (test code = 789-8) See_Comment L [Au tomated message] The system [employer] generated this result transmit josé antonio reference [...] 777-3) See_Comment [Au tomated message] The system [employer] generated this result transmit josé antonio reference range : 150 - 328 10*3/?L. The reference range was not used to interpret this result as normal/abnormal . MPV (test code = 8.9 fL 9.8-13.0 L 70808-2) RDW-CV (test code = 18.9 % 12.1-15.4 H 788-0) RDW-SD (test code = 57.0 fL 38.5-51.6 H 34227-3) NRBC x10^3 (test code = <0.01 See_Comment [Au tomated message] 0879105880) The system [employer] generated this result transmit josé antonio reference range : 10*3/?L. The reference range was not used to interpret this result as normal/abnormal . NRBC/100 WBC (test code See_Comment [Au tomated message] = 8111311490) The system [employer] generated this result transmit josé antonio reference range : 0.0 - 10.0 /100 WBC s. The reference r fernando was not used to interpret this result as normal/abnormal . IPF % (test code = 8316589774) Lab Interpretation (test Abnormal code = 38398-1) [facility] METABOLIC PANEL (NA, K, CL, CO2, GLUCOSE, BUN, CREATININE, CA)2021-02-03 10:25:20 Test Item Value Reference Range Interpretation Comments NA (test code = 132 mmol/L 135-145 L 3067865890) K (test code = 3.8 mmol/L 3.5-5.0 4250740021) CL (test code = 98 mmol/L 98-108 8200084278) CO2 TOTAL (test code = 34 mmol/L 23-31 H 3548436166) AGAP (test code = <1 2-16 L 7158270214) BUN (test code = 19 mg/dL 7-23 0614915390) GLUCOSE (test code = 103 mg/dL 70-110 7422839048) CREATININE (test code = 0.66 mg/dL 0.60-1.25 2199622337) CALCIUM (test code = 8.0 mg/dL 8.6-10.6 L 3316146750) eGFR (test code = mL/min/1.73m2 7129529442) HAVEN (test code = HAVEN) Association of [...] tests). Lab Interpretation Abnormal (test code = 23411-6) [facility] Test Item Value Reference Range Interpretation Comments MAGNESIUM (test code = 3861926150) 1.8 mg/dL 1.7-2.4 Lab Interpretation (test code = Normal 40702-9) [facility] WITH [id number] 10:06:59 Test Item Value Reference Range Interpretation [...] (test code = 55.8 fL 38.5-51.6 H 75868-2) RDW-CV (test code = 18.8 % 12.1-15.4 H 788-0) PLT (test code = See_Comment [Automated 777-3) message] The sy stem which generated this result transmitted reference range : 150 - 328 10*3/ ?L. The reference r fernando was not used to interpret this result as normal/abnormal . MPV (test code = 8.8 fL 9.8-13.0 L 01345-7) NRBC/100 WBC (test See_Comment [Automat ed code = 6915603860) message] The system which generated this result transmitted reference range : 0.0 - 10.0 /100 WBCs. The refer ence range was not u sed to interpret th is result as normal/abnormal . NRBC x10^3 (test code <0.01 See_Comment [Auto mated = 0557137148) message] The s ystem which generated this result transmitted reference range : 10*3/?L. The reference range was not used to interpret this result as normal/abnormal . GRAN MAT (NEUT) % 59.6 % (test code = 770-8) IMM GRAN % (test code 2.10 % = 9589140109) LYMPH % (test code = 25.0 % 736-9) MONO % (test code = 9.4 % 5905-5) EOS % (test code = 3.1 % 713-8) BASO % (test code = 0.8 % 706-2) GRAN MAT x10^3(ANC) 3.11 10*3/uL 1.99-6.95 (test code = 3694914415) IMM GRAN x10^3 (test 0.11 10*3/uL 0.00-0.06 H code = 4407907889) LYMPH x10^3 (test code 1.30 10*3/uL 1.09-3.23 = 731-0) MONO x10^3 (test code 0.49 10*3/uL 0.36-1.02 = 742-7) EOS x10^3 (test code = 0.16 10*3/uL 0.06-0.53 711-2) BASO x10^3 (test code 0.04 10*3/uL 0.01-0.09 = 704-7) Lab Interpretation Abnormal (test code = 28794-4) [facility] METABOLIC PANEL (NA, K, CL, CO2, GLUCOSE, BUN, CREATININE, CA)2021-02-02 09:53:43 Test Item Value Reference Range Interpretation Comments NA (test code = 135 mmol/L 135-145 0797513473) K (test code = 4.1 mmol/L 3.5-5.0 8941188852) CL (test code = 99 mmol/L 98-108 7279345829) CO2 TOTAL (test code = 34 mmol/L 23-31 H 6654365984) AGAP (test code = 2-16 9321077004) BUN (test code = 21 mg/dL 7-23 1368202824) GLUCOSE (test code = 119 mg/dL 70-110 H 5143366345) CREATININE (test code = 0.76 mg/dL 0.60-1.25 9280998816) CALCIUM (test code = 7.8 mg/dL 8.6-10.6 L 8664667310) eGFR (test code = mL/min/1.73m2 3875755379) HAVEN (test code = HAVEN) Association of [...] tests). Lab Interpretation Abnormal (test code = 20760-3) [facility] 09:[facility]43 Test Item Value Reference Range Interpretation Comments MAGNESIUM (test code = 5385421430) 2.5 mg/dL 1.7-2.4 H Lab Interpretation (test code = Abnormal 72024-9) [facility] WITH [id number] 09:32:23 Test Item Value Reference Range Interpretation [...] (test code = 56.8 fL 38.5-51.6 H 49129-6) RDW-CV (test code = 18.9 % 12.1-15.4 H 788-0) PLT (test code = See_Comment [Automated 777-3) message] The sy stem which generated this result transmitted reference range : 150 - 328 10*3/ ?L. The reference r fernando was not used to interpret this result as normal/abnormal . MPV (test code = 9.1 fL 9.8-13.0 L 43764-5) NRBC/100 WBC (test See_Comment [Automat ed code = 2828197908) message] The system which generated this result transmitted reference range : 0.0 - 10.0 /100 WBCs. The refer ence range was not u sed to interpret th is result as normal/abnormal . NRBC x10^3 (test code <0.01 See_Comment [Auto mated = 6213787135) message] The s ystem which generated this result transmitted reference range : 10*3/?L. The reference range was not used to interpret this result as normal/abnormal . GRAN MAT (NEUT) % 73.1 % (test code = 770-8) IMM GRAN % (test code 2.00 % = 7810690769) LYMPH % (test code = 14.0 % 736-9) MONO % (test code = 8.3 % 5905-5) EOS % (test code = 2.3 % 713-8) BASO % (test code = 0.3 % 706-2) GRAN MAT x10^3(ANC) 4.48 10*3/uL 1.99-6.95 (test code = 9137733023) IMM GRAN x10^3 (test 0.12 10*3/uL 0.00-0.06 H code = 8644237157) LYMPH x10^3 (test code 0.86 10*3/uL 1.09-3.23 L = 731-0) MONO x10^3 (test code 0.51 10*3/uL 0.36-1.02 = 742-7) EOS x10^3 (test code = 0.14 10*3/uL 0.06-0.53 711-2) BASO x10^3 (test code <0.03 0.01-0.09 = 704-7) Lab Interpretation Abnormal (test code = 40453-5) [facility] Test Item Value Reference Range Interpretation Comments PHOSPHORUS (test code = 4939889922) 2.6 mg/dL 2.5-5.0 Lab Interpretation (test code = Normal 33364-7) [facility] (NA, K, CL, CO2, GLUCOSE, BUN, CREATININE, CA)2021-02-01 11:21:01 Test Item Value Reference Range Interpretation Comments NA (test code = 133 mmol/L 135-145 L 9336247468) K (test code = 4.4 mmol/L 3.5-5.0 1568035305) CL (test code = 96 mmol/L 98-108 L 3423692915) CO2 TOTAL (test code = 34 mmol/L 23-31 H 2050077529) AGAP (test code = 2-16 7633931699) BUN (test code = 22 mg/dL 7-23 5541418181) GLUCOSE (test code = 125 mg/dL 70-110 H 0500036079) CREATININE (test code = 0.79 mg/dL 0.60-1.25 7867709519) CALCIUM (test code = 7.7 mg/dL 8.6-10.6 L 3952966486) eGFR (test code = mL/min/1.73m2 2493853699) HAVEN (test code = HAVEN) Association of [...] tests). Lab Interpretation Abnormal (test code = 93888-1) [facility] 11:21:01 Test Item Value Reference Range Interpretation Comments MAGNESIUM (test code = 0764713758) 1.3 mg/dL 1.7-2.4 L Lab Interpretation (test code = Abnormal 38164-1) [facility] WITH [id number] 10:58:39 Test Item Value Reference Range Interpretation [...] (test code = 57.8 fL 38.5-51.6 H 89786-2) RDW-CV (test code = 19.2 % 12.1-15.4 H 788-0) PLT (test code = See_Comment [Automated 777-3) message] The sy stem which generated this result transmitted reference range : 150 - 328 10*3/ ?L. The reference r fernando was not used to interpret this result as normal/abnormal . MPV (test code = 9.7 fL 9.8-13.0 L 79164-2) NRBC/100 WBC (test See_Comment [Automat ed code = 9419814577) message] The system which generated this result transmitted reference range : 0.0 - 10.0 /100 WBCs. The refer ence range was not u sed to interpret th is result as normal/abnormal . NRBC x10^3 (test code <0.01 See_Comment [Auto mated = 9428959181) message] The s ystem which generated this result transmitted reference range : 10*3/?L. The reference range was not used to interpret this result as normal/abnormal . GRAN MAT (NEUT) % 80.5 % (test code = 770-8) IMM GRAN % (test code 1.80 % = 0254656926) LYMPH % (test code = 9.3 % 736-9) MONO % (test code = 6.5 % 5905-5) EOS % (test code = 1.8 % 713-8) BASO % (test code = 0.1 % 706-2) GRAN MAT x10^3(ANC) 6.39 10*3/uL 1.99-6.95 (test code = 5453053087) IMM GRAN x10^3 (test 0.14 10*3/uL 0.00-0.06 H code = 4017763253) LYMPH x10^3 (test code 0.74 10*3/uL 1.09-3.23 L = 731-0) MONO x10^3 (test code 0.52 10*3/uL 0.36-1.02 = 742-7) EOS x10^3 (test code = 0.14 10*3/uL 0.06-0.53 711-2) BASO x10^3 (test code <0.03 0.01-0.09 = 704-7) Lab Interpretation Abnormal (test code = 39817-1) [facility] [id number] 19:01:19 Test Item Value Reference Range Interpretation Comments Blood Culture-Aerobic No organisms No growth Previo us (test code = 86813-2) isolated prelim inary verified result was Culture [...] Culture-Anaerobic isolated preliminar y (test code = 10263-7) verifi ed result was Culture In Progress [...] CDT Lab Interpretation Normal (test code = 31829-7) [facility] CULTURE [id number] 19:01:19 Test Item Value Reference Range Interpretation Comments Blood Culture-Aerobic No organisms No growth Previo us (test code = 88622-3) isolated prelim inary verified result was Culture [...] Culture-Anaerobic isolated preliminar y (test code = 88195-0) verifi ed result was Culture In Progress [...] CDT Lab Interpretation Normal (test code = 41929-7) [facility] CULTURE [id number] 19:01:19 Test Item Value Reference Range Interpretation Comments Blood Culture-Aerobic No organisms No growth Previo us (test code = 21835-5) isolated prelim inary verified result was Culture [...] Culture-Anaerobic isolated preliminar y (test code = 94219-0) verifi ed result was Culture In Progress [...] CDT Lab Interpretation Normal (test code = 17501-3) [facility] [id number] 19:01:19 Test Item Value Reference Range Interpretation Comments Blood Culture-Aerobic No organisms No growth Previo us (test code = 47761-9) isolated prelim inary verified result was Culture [...] Culture-Anaerobic isolated preliminar y (test code = 26659-6) verifi ed result was Culture In Progress [...] CDT Lab Interpretation Normal (test code = 11919-6) [facility] [id number] 10:00:25 Test Item Value Reference Range Interpretation [...] (test code = 57.4 fL 38.5-51.6 H 47812-8) RDW-CV (test code = 18.9 % 12.1-15.4 H 788-0) PLT (test code = See_Comment [Automated 777-3) message] The sy stem which generated this result transmitted reference range : 150 - 328 10*3/ ?L. The reference r fernando was not used to interpret this result as normal/abnormal . MPV (test code = 9.3 fL 9.8-13.0 L 66123-0) NRBC/100 WBC (test See_Comment [Automat ed code = 9495687098) message] The system which generated this result transmitted reference range : 0.0 - 10.0 /100 WBCs. The refer ence range was not u sed to interpret th is result as normal/abnormal . NRBC x10^3 (test code <0.01 See_Comment [Auto mated = 7615091492) message] The s ystem which generated this result transmitted reference range : 10*3/?L. The reference range was not used to interpret this result as normal/abnormal . GRAN MAT (NEUT) % 76.5 % (test code = 770-8) IMM GRAN % (test code 2.60 % = 6988573407) LYMPH % (test code = 11.9 % 736-9) MONO % (test code = 5.7 % 5905-5) EOS % (test code = 3.1 % 713-8) BASO % (test code = 0.2 % 706-2) GRAN MAT x10^3(ANC) 5.00 10*3/uL 1.99-6.95 (test code = 1076235869) IMM GRAN x10^3 (test 0.17 10*3/uL 0.00-0.06 H code = 4022538590) LYMPH x10^3 (test code 0.78 10*3/uL 1.09-3.23 L = 731-0) MONO x10^3 (test code 0.37 10*3/uL 0.36-1.02 = 742-7) EOS x10^3 (test code = 0.20 10*3/uL 0.06-0.53 711-2) BASO x10^3 (test code <0.03 0.01-0.09 = 704-7) TOXIC CHANGES (test Present A code = 803-7) Lab Interpretation Abnormal (test code = 98706-0) [facility] WITH [id number] 10:00:25 Test Item Value Reference Range Interpretation Comments WBC (test code = See_Comment [Automated 6690-2) message] The sy stem which generated this result transmitted reference range : 4.20 - 10.70 10*3/?L. The reference range was not used to interpret this result as normal/abnormal . RBC (test code = See_Comment L [Automated 429-8) message] The sy stem which generated this [...] (test code = 57.4 fL 38.5-51.6 H 65244-2) RDW-CV (test code = 18.9 % 12.1-15.4 H 788-0) PLT (test code = See_Comment [Automated 777-3) message] The sy stem which generated this result transmitted reference range : 150 - 328 10*3/ ?L. The reference r fernando was not used to interpret this result as normal/abnormal . MPV (test code = 9.3 fL 9.8-13.0 L 17560-2) NRBC/100 WBC (test See_Comment [Automat ed code = 5745475174) message] The system which generated this result transmitted reference range : 0.0 - 10.0 /100 WBCs. The refer ence range was not u sed to interpret th is result as normal/abnormal . NRBC x10^3 (test code <0.01 See_Comment [Auto mated = 5125123293) message] The s ystem which generated this result transmitted reference range : 10*3/?L. The reference range was not used to interpret this result as normal/abnormal . GRAN MAT (NEUT) % 76.5 % (test code = 770-8) IMM GRAN % (test code 2.60 % = 6440874312) LYMPH % (test code = 11.9 % 736-9) MONO % (test code = 5.7 % 5905-5) EOS % (test code = 3.1 % 713-8) BASO % (test code = 0.2 % 706-2) GRAN MAT x10^3(ANC) 5.00 10*3/uL 1.99-6.95 (test code = 3422316078) IMM GRAN x10^3 (test 0.17 10*3/uL 0.00-0.06 H code = 6855278844) LYMPH x10^3 (test code 0.78 10*3/uL 1.09-3.23 L = 731-0) MONO x10^3 (test code 0.37 10*3/uL 0.36-1.02 = 742-7) EOS x10^3 (test code = 0.20 10*3/uL 0.06-0.53 711-2) BASO x10^3 (test code <0.03 0.01-0.09 = 704-7) TOXIC CHANGES (test Present A code = 803-7) Lab Interpretation Abnormal (test code = 54506-2) [facility] METABOLIC PANEL (NA, K, CL, CO2, GLUCOSE, BUN, CREATININE, CA)2021-01-31 09:38:54 Test Item Value Reference Range Interpretation Comments NA (test code = 137 mmol/L 135-145 2399797086) K (test code = 4.5 mmol/L 3.5-5.0 6729854788) CL (test code = 94 mmol/L 98-108 L 7351917833) CO2 TOTAL (test code = 36 mmol/L 23-31 H 4297616009) AGAP (test code = 2-16 7575749568) BUN (test code = 32 mg/dL 7-23 H 7924229114) GLUCOSE (test code = 93 mg/dL 70-110 5930906037) CREATININE (test code = 0.91 mg/dL 0.60-1.25 4880388333) CALCIUM (test code = 7.4 mg/dL 8.6-10.6 L 7462895424) eGFR (test code = mL/min/1.73m2 0850011820) HAVEN (test code = HAVEN) Association of [...] tests). Lab Interpretation Abnormal (test code = 54208-7) [facility] METABOLIC PANEL (NA, K, CL, CO2, GLUCOSE, BUN, CREATININE, CA)2021-01-31 09:38:54 Test Item Value Reference Range Interpretation Comments NA (test code = 137 mmol/L 135-145 8247628995) K (test code = 4.5 mmol/L 3.5-5.0 3379433456) CL (test code = 94 mmol/L 98-108 L 8270514893) CO2 TOTAL (test code = 36 mmol/L 23-31 H 4418100617) AGAP (test code = 2-16 0517939718) BUN (test code = 32 mg/dL 7-23 H 5250726226) GLUCOSE (test code = 93 mg/dL 70-110 8243837086) CREATININE (test code = 0.91 mg/dL 0.60-1.25 8066575526) CALCIUM (test code = 7.4 mg/dL 8.6-10.6 L 7343764322) eGFR (test code = mL/min/1.73m2 4044593967) HAVEN (test code = HAVEN) Association of [...] tests). Lab Interpretation Abnormal (test code = 72987-5) [facility] Test Item Value Reference Range Interpretation Comments MAGNESIUM (test code = 8679256970) 1.1 mg/dL 1.7-2.4 L Lab Interpretation (test code = Abnormal 71845-0) [facility]29 Test Item Value Reference Range Interpretation Comments MAGNESIUM (test code = 8612205470) 1.1 mg/dL 1.7-2.4 L Lab Interpretation (test code = Abnormal 45870-3) [facility] WITH [id number] 02:37:37 Test Item Value Reference Range Interpretation Comments WBC (test code = See_Comment [Automated 7566-2) message] The sy stem which generated this result transmitted reference range : 4.20 - 10.70 10*3/?L. The reference range was not used to interpret this result as normal/abnormal . RBC (test code = See_Comment L [Automated 558-8) message] The sy stem which generated this [...] (test code = 57.5 fL 38.5-51.6 H 59682-0) RDW-CV (test code = 19.2 % 12.1-15.4 H 788-0) PLT (test code = See_Comment [Automated 777-3) message] The sy stem which generated this result transmitted reference range : 150 - 328 10*3/ ?L. The reference r fernando was not used to interpret this result as normal/abnormal . MPV (test code = 9.5 fL 9.8-13.0 L 19257-5) NRBC/100 WBC (test See_Comment [Automat ed code = 0575146729) message] The system which generated this result transmitted reference range : 0.0 - 10.0 /100 WBCs. The refer ence range was not u sed to interpret th is result as normal/abnormal . NRBC x10^3 (test code <0.01 See_Comment [Auto mated = 3080495473) message] The s ystem which generated this result transmitted reference range : 10*3/?L. The reference range was not used to interpret this result as normal/abnormal . GRAN MAT (NEUT) % 78.5 % (test code = 770-8) IMM GRAN % (test code 2.40 % = 5272291452) LYMPH % (test code = 9.8 % 736-9) MONO % (test code = 6.1 % 5905-5) EOS % (test code = 2.9 % 713-8) BASO % (test code = 0.3 % 706-2) GRAN MAT x10^3(ANC) 6.23 10*3/uL 1.99-6.95 (test code = 0914439640) IMM GRAN x10^3 (test 0.19 10*3/uL 0.00-0.06 H code = 9669759621) LYMPH x10^3 (test code 0.78 10*3/uL 1.09-3.23 L = 731-0) MONO x10^3 (test code 0.48 10*3/uL 0.36-1.02 = 742-7) EOS x10^3 (test code = 0.23 10*3/uL 0.06-0.53 711-2) BASO x10^3 (test code <0.03 0.01-0.09 = 704-7) REACT LYMPHS (test Rare code = 0128138949) TOXIC CHANGES (test Present A code = 803-7) Lab Interpretation Abnormal (test code = 86022-4) [facility] WITH [id number] 02:37:37 Test Item Value Reference Range Interpretation Comments WBC (test code = See_Comment [Automated 8790-2) message] The sy stem which generated this [...] (test code = 57.5 fL 38.5-51.6 H 97767-0) RDW-CV (test code = 19.2 % 12.1-15.4 H 788-0) PLT (test code = See_Comment [Automated 777-3) message] The sy stem which generated this result transmitted reference range : 150 - 328 10*3/ ?L. The reference r fernando was not used to interpret this result as normal/abnormal . MPV (test code = 9.5 fL 9.8-13.0 L 93271-4) NRBC/100 WBC (test See_Comment [Automat ed code = 1283990576) message] The system which generated this result transmitted reference range : 0.0 - 10.0 /100 WBCs. The refer ence range was not u sed to interpret th is result as normal/abnormal . NRBC x10^3 (test code <0.01 See_Comment [Auto mated = 3834574929) message] The s ystem which generated this result transmitted reference range : 10*3/?L. The reference range was not used to interpret this result as normal/abnormal . GRAN MAT (NEUT) % 78.5 % (test code = 770-8) IMM GRAN % (test code 2.40 % = 4492000960) LYMPH % (test code = 9.8 % 736-9) MONO % (test code = 6.1 % 5905-5) EOS % (test code = 2.9 % 713-8) BASO % (test code = 0.3 % 706-2) GRAN MAT x10^3(ANC) 6.23 10*3/uL 1.99-6.95 (test code = 0570683345) IMM GRAN x10^3 (test 0.19 10*3/uL 0.00-0.06 H code = 1384301971) LYMPH x10^3 (test code 0.78 10*3/uL 1.09-3.23 L = 731-0) MONO x10^3 (test code 0.48 10*3/uL 0.36-1.02 = 742-7) EOS x10^3 (test code = 0.23 10*3/uL 0.06-0.53 711-2) BASO x10^3 (test code <0.03 0.01-0.09 = 704-7) REACT LYMPHS (test Rare code = 5974321112) TOXIC CHANGES (test Present A code = 803-7) Lab Interpretation Abnormal (test code = 09687-5) [facility] [id number] 22:24:42COVID DMT InterpretationInterpretation/Recommendations:Molecular NAAT Tests for Active [...] COVID-19 testing the patient has had at [facility], includingmolecular NAAT testing (more commonly known as PCR testing and Rapid ID Now testing) and antibody testing. It does not take into account any testing that a patient has had outside of the [facility] medical record. [facility] LABORATORY SERVICESCOVID HircmlcKWVQ-RfL-4 Rapid ID NOW (no units) ? ? Date ? Value ? 01/30/2021 ? Not Detected ? ? ? 01/22/2021 ? Not Detected ? ? ? 07/19/2020 ? Not Detected ? ? ? 07/12/2020 ? Positive (A) ? ? ? 06/21/2020 ? Positive (A) ? [facility] INTERPRETATION 2021-01-30 22:24:42COVID DMT InterpretationInterpretation/Recommendations:Molecular [...] COVID-19 testing the patient has had at [facility], includingmolecular NAAT testing (more commonly known as PCR testing and Rapid ID Now testing) and antibody testing. It does not take into account any testing that a patient has had outside of the [facility] medical record. [facility]ORAT[facility] SERVICESCOVID [id number] Rapid ID NOW (no units) ? ? Date ? Value ? 01/30/2021 ? Not Detected ? ? ? 01/22/2021 ? Not Detected ? ? ? 07/19/2020 ? Not Detected ? ? ? 07/12/2020 ? Positive (A) ? ? ? 06/21/2020 ? Positive (A) ? [facility] SERVICESUn[facility]AC PANEL 20 + LACTIC [id number] 22:18:39 Test Item Value Reference Range Interpretation Comments PH (test code = 2) 7.35-7.45 H PCO2 (test code = See_Comment H [Automat ed [id number]) message] The sy stem which generated this result transmitted reference range : 35 - 45 mmHg. The reference range was not used to interpret this result as normal/abnormal . PO2 (test code = See_Comment H [Automated [id number]) message] The sy stem which generated this result transmitted reference range : 80 - 100 mmHg. The reference range was not used to interpret this result as normal/abnormal . HCO3 (test code = See_Comment H [Automate d 4520343607) message] The sy stem which generated this result transmitted reference range : 22 - 26 mEq/L. The reference range was not used to interpret this result as normal/abnormal . BE (test code = See_Comment H [Automated 5229631856) message] The sy stem which generated this result transmitted reference range : -3.0 - 3.0 mEq/ L. The reference r fernando was not used to interpret this result as normal/abnormal . THB (test code = 11.3 g/dL 13.5-18.0 L 4589333424) %O2HB (test code = 97.1 % 94.0-99.0 7323292601) %COHB ART (test code = 0.7 % 0.0-1.5 4840265000) %METHB ART (test code = 0.2 % 0.4-1.5 L 2546616547) VOL%O2 ART (test code = 15.6 % 15.0-23.0 2301167634) NA (test code = 134 mmol/L 135-145 L 1487425459) K+ (test code = 4.3 mmol/L 3.5-5.0 8528769280) AC CA IONZ (test code = 4.00 mg/dL 4.50-5.30 L 1793587573) GLUCOSE (test code = 117 mg/dL 70-110 H 0890344714) LACTIC ACID (test code 1.12 mmol/L 0.50-2.20 = 8383512444) Lab Interpretation Abnormal (test code = 28150-5) [facility] [id number] 22:18:39 Test Item Value Reference Range Interpretation Comments PH (test code = 2) 7.35-7.45 H PCO2 (test code = See_Comment H [Automat ed 2762678566) message] The sy stem which generated this result transmitted reference range : 35 - 45 mmHg. The reference range was not used to interpret this result as normal/abnormal . PO2 (test code = See_Comment H [Automated 0451683691) message] The sy stem which generated this result transmitted reference range : 80 - 100 mmHg. The reference range was not used to interpret this result as normal/abnormal . HCO3 (test code = See_Comment H [Automate d 0944943941) message] The sy stem which generated this result transmitted reference range : 22 - 26 mEq/L. The reference range was not used to interpret this result as normal/abnormal . BE (test code = See_Comment H [Automated 0846486006) message] The sy stem which generated this result transmitted reference range : -3.0 - 3.0 mEq/ L. The reference r fernando was not used to interpret this result as normal/abnormal . THB (test code = 11.3 g/dL 13.5-18.0 L 7908558801) %O2HB (test code = 97.1 % 94.0-99.0 3561458269) %COHB ART (test code = 0.7 % 0.0-1.5 3781312712) %METHB ART (test code = 0.2 % 0.4-1.5 L 3577091256) VOL%O2 ART (test code = 15.6 % 15.0-23.0 9357080353) NA (test code = 134 mmol/L 135-145 L 1742221967) K+ (test code = 4.3 mmol/L 3.5-5.0 1402649427) AC CA IONZ (test code = 4.00 mg/dL 4.50-5.30 L 6751591898) GLUCOSE (test code = 117 mg/dL 70-110 H 7781853582) LACTIC ACID (test code 1.12 mmol/L 0.50-2.20 = 0544430050) Lab Interpretation Abnormal (test code = 94526-2) [facility] - Draw immediately prior to the 4TH dose, but, no more than 60 minutes before the 4TH dose. 2021-01-30 22:17:43 Test Item Value Reference Range Interpretation Comments VANCO TROUGH (test code 13.8 ug/mL 10.0-20.0 = 6078752344) HAVEN (test code = HAVEN) Toxic Range: ?>20 ug/mL 15-20 ug/mL is recommended for severe infection or when Vancomycin KO is greater than or equal to 2. Lab Interpretation (test Normal code = 73416-1) [facility] - Draw immediately prior to the 4TH dose, but, no more than 60 minutes before the 4TH dose. 2021-01-30 22:17:43 Test Item Value Reference Range Interpretation Comments VANCO TROUGH (test code 13.8 ug/mL 10.0-20.0 = 5635282250) HAVEN (test code = HAVEN) Toxic Range: ?>20 ug/mL 15-20 ug/mL is recommended for severe infection or when Vancomycin KO is greater than or equal to 2. Lab Interpretation (test Normal code = 10076-5) [facility]FL [facility] (NON-REPORTABLE)2021-01-30 20:47:53 These images do not require a Radiology diagnostic report.[facility] TIME OR (NON-REPORTABLE)2021-01-30 20:47:53These images do not require a Radiology diagnostic report.[facility]XR CHEST 1 [id number] 16:51:26 Interval decrease in size of left [...] Lobulated calcification projectsover the left axilla, unchanged. [facility], Radiant Results Inft User - 01/30/2021 11:52AM [...] have reviewed this study and agree with theabovereport.[facility] 1 VW 2021-01-30 16:51:26 Interval decrease [...] have reviewed this study and agree with theabovereport.[facility] Confirmation (Lab Only)2021-01-30 14:56:47 Test Item Value Reference Range Interpretation Comments ABO & RH (test code A Positive Performe d at [facility] = 20) Laboratory [facility] [place] [address] s [id number] Free: [phone] A No. [id number] [facility] Confirmation (Lab Only)2021-01-30 14:56:47 Test Item Value Reference Range Interpretation Comments ABO & RH (test code A Positive Performe d at [facility] = 20) [facility] [address] [place] [address] s 10074Vcws Free: [phone] A No. [id number] [facility] and Screen - ONCE [id number] 14:21:21 Test Item Value Reference Range Interpretation Comments ABO & RH (test code A POSITIVE Performe d at [facility] = 20) Laboratory [facility] [place] [address] s [id number] Free: [phone] A No. [id number] IAT (test code = Negative Performed a t [facility] 1185) Laboratory [facility] [place] [address] s [id number] Free: [phone] A No. [id number] [facility] and Screen - ONCE [id number] 14:21:21 Test Item Value Reference Range Interpretation Comments ABO & RH (test code A POSITIVE Performe d at [facility] = 20) Laboratory [facility] [place] [address] s [id number] Free: [phone] A No. [id number] IAT (test code = Negative Performed a t [facility] 1185) Laboratory [facility] [place] [address] s [id number] Free: [phone] A No. [id number] [facility] CenterMRSA / MSSA Screen by PCR, [id number] 10:30:03 Test Item Value Reference Range Interpretation Comments MRSA Screen by PCR, Positive Negative A Nares (test code = 59260-4) MRSA/MSSA Positive? Yes No A (test code = 1105539944) HAVEN (test code = HAVEN) A positive test result does not necessarily indicate the presence of viable organism. Lab Interpretation (test Abnormal code = 83097-2) [facility] CenterMR[facility] MSSA Screen by PCR, [id number] 10:30:03 Test Item Value Reference Range Interpretation Comments MRSA Screen by PCR, Positive Negative A Nares (test code = 83406-3) MRSA/MSSA Positive? Yes No A (test code = 5604307296) HAVEN (test code = HAVEN) A positive test result does not necessarily indicate the presence of viable organism. Lab Interpretation (test Abnormal code = 55296-3) [facility] WITH [id number] 10:12:49 Test Item Value Reference Range Interpretation [...] (test code = 56.7 fL 38.5-51.6 H 13478-7) RDW-CV (test code = 18.8 % 12.1-15.4 H 788-0) PLT (test code = See_Comment [Automated 777-3) message] The sy stem which generated this result transmitted reference range : 150 - 328 10*3/ ?L. The reference r fernando was not used to interpret this result as normal/abnormal . MPV (test code = 9.4 fL 9.8-13.0 L 73735-9) NRBC/100 WBC (test See_Comment [Automat ed code = 6348234025) message] The system which generated this result transmitted reference range : 0.0 - 10.0 /100 WBCs. The refer ence range was not u sed to interpret th is result as normal/abnormal . NRBC x10^3 (test code <0.01 See_Comment [Auto mated = 0135835744) message] The s ystem which generated this result transmitted reference range : 10*3/?L. The reference range was not used to interpret this result as normal/abnormal . GRAN MAT (NEUT) % 71.8 % (test code = 770-8) IMM GRAN % (test code 4.40 % = 3706862192) LYMPH % (test code = 15.1 % 736-9) MONO % (test code = 5.3 % 5905-5) EOS % (test code = 3.2 % 713-8) BASO % (test code = 0.2 % 706-2) GRAN MAT x10^3(ANC) 4.72 10*3/uL 1.99-6.95 (test code = 0811196669) IMM GRAN x10^3 (test 0.29 10*3/uL 0.00-0.06 H code = 0596039795) LYMPH x10^3 (test code 0.99 10*3/uL 1.09-3.23 L = 731-0) MONO x10^3 (test code 0.35 10*3/uL 0.36-1.02 L = 742-7) EOS x10^3 (test code = 0.21 10*3/uL 0.06-0.53 711-2) BASO x10^3 (test code <0.03 0.01-0.09 = 704-7) TOXIC CHANGES (test Present A code = 803-7) Lab Interpretation Abnormal (test code = 48042-1) [facility] WITH [id number] 10:12:49 Test Item Value Reference Range Interpretation [...] (test code = 56.7 fL 38.5-51.6 H 58973-7) RDW-CV (test code = 18.8 % 12.1-15.4 H 788-0) PLT (test code = See_Comment [Automated 777-3) message] The sy stem which generated this result transmitted reference range : 150 - 328 10*3/ ?L. The reference r fernando was not used to interpret this result as normal/abnormal . MPV (test code = 9.4 fL 9.8-13.0 L 18242-8) NRBC/100 WBC (test See_Comment [Automat ed code = 2124325808) message] The system which generated this result transmitted reference range : 0.0 - 10.0 /100 WBCs. The refer ence range was not u sed to interpret th is result as normal/abnormal . NRBC x10^3 (test code <0.01 See_Comment [Auto mated = 6465985426) message] The s ystem which generated this result transmitted reference range : 10*3/?L. The reference range was not used to interpret this result as normal/abnormal . GRAN MAT (NEUT) % 71.8 % (test code = 770-8) IMM GRAN % (test code 4.40 % = 4566355261) LYMPH % (test code = 15.1 % 736-9) MONO % (test code = 5.3 % 5905-5) EOS % (test code = 3.2 % 713-8) BASO % (test code = 0.2 % 706-2) GRAN MAT x10^3(ANC) 4.72 10*3/uL 1.99-6.95 (test code = 6266068706) IMM GRAN x10^3 (test 0.29 10*3/uL 0.00-0.06 H code = 6060595379) LYMPH x10^3 (test code 0.99 10*3/uL 1.09-3.23 L = 731-0) MONO x10^3 (test code 0.35 10*3/uL 0.36-1.02 L = 742-7) EOS x10^3 (test code = 0.21 10*3/uL 0.06-0.53 711-2) BASO x10^3 (test code <0.03 0.01-0.09 = 704-7) TOXIC CHANGES (test Present A code = 803-7) Lab Interpretation Abnormal (test code = 87296-1) [facility] METABOLIC PANEL (NA, K, CL, CO2, GLUCOSE, BUN, CREATININE, CA)2021-01-30 09:36:55 Test Item Value Reference Range Interpretation Comments NA (test code = 135 mmol/L 135-145 3688991163) K (test code = 4.2 mmol/L 3.5-5.0 9480251578) CL (test code = 91 mmol/L 98-108 L 1442861164) CO2 TOTAL (test code = 37 mmol/L 23-31 H 6424082601) AGAP (test code = 2-16 8891530696) BUN (test code = 40 mg/dL 7-23 H 5303442202) GLUCOSE (test code = 108 mg/dL 70-110 8312133026) CREATININE (test code = 0.93 mg/dL 0.60-1.25 7215012778) CALCIUM (test code = 7.9 mg/dL 8.6-10.6 L 1079234054) eGFR (test code = mL/min/1.73m2 3241037010) HAVEN (test code = HAVEN) Association of [...] tests). Lab Interpretation Abnormal (test code = 40108-3) [facility] METABOLIC PANEL (NA, K, CL, CO2, GLUCOSE, BUN, CREATININE, CA)2021-01-30 09:36:55 Test Item Value Reference Range Interpretation Comments NA (test code = 135 mmol/L 135-145 8643249991) K (test code = 4.2 mmol/L 3.5-5.0 6290284760) CL (test code = 91 mmol/L 98-108 L 1072240053) CO2 TOTAL (test code = 37 mmol/L 23-31 H 6687164279) AGAP (test code = 2-16 4414585546) BUN (test code = 40 mg/dL 7-23 H 0528652043) GLUCOSE (test code = 108 mg/dL 70-110 4726545491) CREATININE (test code = 0.93 mg/dL 0.60-1.25 2086152477) CALCIUM (test code = 7.9 mg/dL 8.6-10.6 L 3639161309) eGFR (test code = mL/min/1.73m2 4018396667) HAVEN (test code = HAVEN) Association of [...] tests). Lab Interpretation Abnormal (test code = 32971-5) [facility] [id number] 09:17:35 Test Item Value Reference Range Interpretation Comments APTT Patient (test code = See_Comment [ Automated message] 3173-2) The system [employer] generated this result transmitted ref erence range: 26 - 36 Seconds. The re ference range was not u sed to interpret this result as normal/abnor mal. Lab Interpretation (test Normal code = 33790-0) [facility] CenterPROTHROMBIN TIME / [id number] 09:17:35 Test Item Value Reference Range Interpretation Comments PROTIME PATIENT (test See_Comment H [Auto mated message] code = 5964-2) The system [employer] generated this result transmitted ref erence range: 10.1 - 1 2.6 Seconds. The reference range was not used to int erpret this result as normal/abnormal . INR (test code = 6301-6) Nor mal INR <1.1; Warfarin Therap eutic range 2.0 to 3. 0 or 2.5 to 3.5, dep ending upon the indica tions. Lab Interpretation (test Abnormal code = 49046-6) [facility] [id number] 09:17:35 Test Item Value Reference Range Interpretation Comments APTT Patient (test code = See_Comment [ Automated message] 3173-2) The system [employer] generated this result transmitted ref erence range: 26 - 36 Seconds. The re ference range was not u sed to interpret this result as normal/abnor mal. Lab Interpretation (test Normal code = 41018-6) [facility] CenterPROT[facility]OMBIN TIME / [id number] 09:17:35 Test Item Value Reference Range Interpretation Comments PROTIME PATIENT (test See_Comment H [Auto mated message] code = 5964-2) The system [employer] generated this result transmitted ref erence range: 10.1 - 1 2.6 Seconds. The reference range was not used to int erpret this result as normal/abnormal . INR (test code = 6301-6) Nor mal INR <1.1; Warfarin Therap eutic range 2.0 to 3. 0 or 2.5 to 3.5, dep ending upon the indica tions. Lab Interpretation (test Abnormal code = 72523-9) [facility] CenterCOVID[facility] (ID NOW RAPID TESTING)2021-01-30 05:45:46 Test Item Value Reference Range Interpretation Comments SARS-CoV-2 Rapid ID NOW Not Detected Not Detected (test code = 50828-3) HAVEN (test code = HAVEN) ID NOW COVID-19 Assay is an isothermal nucleic acid amplification test intended for the qualitative detection of nucleic acid from SARS-CoV-2 viral RNA in nasopharyngeal ([employer]) specimens. It is used under Emergency Use [...] indicated. Lab Interpretation Normal (test code = 26220-0) [facility] CenterC[facility] (ID NOW RAPID TESTING)2021-01-30 05:45:46 Test Item Value Reference Range Interpretation Comments SARS-CoV-2 Rapid ID NOW Not Detected Not Detected (test code = 14165-5) HAVEN (test code = HAVEN) ID NOW COVID-19 Assay is an isothermal nucleic acid amplification test intended for the qualitative detection of nucleic acid from SARS-CoV-2 viral RNA in nasopharyngeal ([employer] COORDINATOR) specimens. It is used under Emergency Use [...] indicated. Lab Interpretation Normal (test code = 15961-1) [facility]ACT[facility] [id number] 04:39:22 Test Item Value Reference Range Interpretation Comments APTT Patient (test code = See_Comment [ Automated message] 3733-2) The system [employer] generated this result transmitted ref erence range: 26 - 36 Seconds. The re ference range was not u sed to interpret this result as normal/abnor mal. Lab Interpretation (test Normal code = 33364-1) [facility] [id number] 04:39:22 Test Item Value Reference Range Interpretation Comments APTT Patient (test code = See_Comment [ Automated message] 3173-2) The system [employer] generated this result transmitted ref erence range: 26 - 36 Seconds. The re ference range was not u sed to interpret this result as normal/abnor mal. Lab Interpretation (test Normal code = 73163-6) [facility] GLUCOSE (AUTOMATED)2021-01-30 04:14:51 Test Item Value Reference Range Interpretation Comments POCT GLU (test code = 4143683035) 132 mg/dL 70-110 H Lab Interpretation (test code = Abnormal 47545-7) [facility] GLUCOSE (AUTOMATED)2021-01-30 04:14:51 Test Item Value Reference Range Interpretation Comments POCT GLU (test code = 8420550456) 132 mg/dL 70-110 H Lab Interpretation (test code = Abnormal 64686-0) [facility] CenterVan[facility] Trough Level - Draw no more than 60 minutes before the 1330 dose.2021-01-29 22:13:39 Test Item Value Reference Range Interpretation Comments VANCO TROUGH (test code 14.1 ug/mL 10.0-20.0 = 1273204023) HAVEN (test code = HAVEN) Toxic Range: ?>20 ug/mL 15-20 ug/mL is recommended for severe infection or when Vancomycin KO is greater than or equal to 2. Lab Interpretation (test Normal code = 91735-4) [facility] CenterVan[facility] Trough Level - Draw no more than 60 minutes before the 1330 dose.2021-01-29 22:13:39 Test Item Value Reference Range Interpretation Comments VANCO TROUGH (test code 14.1 ug/mL 10.0-20.0 = 5092882302) HAVEN (test code = HAVEN) Toxic Range: ?>20 ug/mL 15-20 ug/mL is recommended for severe infection or when Vancomycin KO is greater than or equal to 2. Lab Interpretation (test Normal code = 57840-2) [facility] WITH [id number] 07:59:23 Test Item Value Reference Range Interpretation [...] (test code = 55.6 fL 38.5-51.6 H 53465-1) RDW-CV (test code = 18.9 % 12.1-15.4 H 788-0) PLT (test code = See_Comment [Automated 777-3) message] The sy stem which generated this result transmitted reference range : 150 - 328 10*3/ ?L. The reference r fernando was not used to interpret this result as normal/abnormal . MPV (test code = 9.1 fL 9.8-13.0 L 88896-6) NRBC/100 WBC (test See_Comment [Automat ed code = 1497676052) message] The system which generated this result transmitted reference range : 0.0 - 10.0 /100 WBCs. The refer ence range was not u sed to interpret th is result as normal/abnormal . NRBC x10^3 (test code <0.01 See_Comment [Auto mated = 5603772231) message] The s ystem which generated this result transmitted reference range : 10*3/?L. The reference range was not used to interpret this result as normal/abnormal . GRAN MAT (NEUT) % 78.9 % (test code = 770-8) IMM GRAN % (test code 0.70 % = 3867275347) LYMPH % (test code = 9.6 % 736-9) MONO % (test code = 10.2 % 5905-5) EOS % (test code = 0.2 % 713-8) BASO % (test code = 0.4 % 706-2) GRAN MAT x10^3(ANC) 7.14 10*3/uL 1.99-6.95 H (test code = 8747599401) IMM GRAN x10^3 (test 0.06 10*3/uL 0.00-0.06 code = 7919380462) LYMPH x10^3 (test code 0.87 10*3/uL 1.09-3.23 L = 731-0) MONO x10^3 (test code 0.92 10*3/uL 0.36-1.02 = 742-7) EOS x10^3 (test code = <0.03 0.06-0.53 L 711-2) BASO x10^3 (test code 0.04 10*3/uL 0.01-0.09 = 704-7) Lab Interpretation Abnormal (test code = 26865-6) [facility] WITH [id number] 07:59:23 Test Item Value Reference Range Interpretation Comments WBC (test code = See_Comment [Automated 6690-2) message] The sy stem which generated this result transmitted reference range : 4.20 - 10.70 10*3/?L. The reference range was not used to interpret this result as normal/abnormal . RBC (test code = See_Comment [Automated 149-8) message] The sy stem which generated this [...] (test code = 55.6 fL 38.5-51.6 H 63910-0) RDW-CV (test code = 18.9 % 12.1-15.4 H 788-0) PLT (test code = See_Comment [Automated 777-3) message] The sy stem which generated this result transmitted reference range : 150 - 328 10*3/ ?L. The reference r fernando was not used to interpret this result as normal/abnormal . MPV (test code = 9.1 fL 9.8-13.0 L 34023-5) NRBC/100 WBC (test See_Comment [Automat ed code = 3346905961) message] The system which generated this result transmitted reference range : 0.0 - 10.0 /100 WBCs. The refer ence range was not u sed to interpret th is result as normal/abnormal . NRBC x10^3 (test code <0.01 See_Comment [Auto mated = 2532392820) message] The s ystem which generated this result transmitted reference range : 10*3/?L. The reference range was not used to interpret this result as normal/abnormal . GRAN MAT (NEUT) % 78.9 % (test code = 770-8) IMM GRAN % (test code 0.70 % = 6079623957) LYMPH % (test code = 9.6 % 736-9) MONO % (test code = 10.2 % 5905-5) EOS % (test code = 0.2 % 713-8) BASO % (test code = 0.4 % 706-2) GRAN MAT x10^3(ANC) 7.14 10*3/uL 1.99-6.95 H (test code = 3338697336) IMM GRAN x10^3 (test 0.06 10*3/uL 0.00-0.06 code = 6773866935) LYMPH x10^3 (test code 0.87 10*3/uL 1.09-3.23 L = 731-0) MONO x10^3 (test code 0.92 10*3/uL 0.36-1.02 = 742-7) EOS x10^3 (test code = <0.03 0.06-0.53 L 711-2) BASO x10^3 (test code 0.04 10*3/uL 0.01-0.09 = 704-7) Lab Interpretation Abnormal (test code = 36370-9) [facility] [id number] 07:17:19 Test Item Value Reference Range Interpretation Comments APTT Patient (test See_Comment [Automat ed code = 3173-2) message] The system which generated this result transmitted reference range : 23 - 38 Seconds . The reference range was not used to interpr et this result as normal/abnormal . HAVEN (test code = HAVEN) The [facility] patient population mean normal value for aPTT is 30 seconds. Lab Interpretation Normal (test code = 22057-5) [facility] [id number] 07:17:19 Test Item Value Reference Range Interpretation Comments APTT Patient (test See_Comment [Automat ed code = 3173-2) message] The system which generated this result transmitted reference range : 23 - 38 Seconds . The reference range was not used to interpr et this result as normal/abnormal . HAVEN (test code = HAVEN) The [facility] patient population mean normal value for aPTT is 30 seconds. Lab Interpretation Normal (test code = 59395-9) [facility] (NA, K, CL, CO2, GLUCOSE, BUN, CREATININE, CA)2021-01-28 06:57:36 Test Item Value Reference Range Interpretation Comments NA (test code = 137 mmol/L 135-145 0936030414) K (test code = 4.1 mmol/L 3.5-5.0 0978738474) CL (test code = 90 mmol/L 98-108 L 5717392823) CO2 TOTAL (test code = 40 mmol/L 23-31 H 7576478355) AGAP (test code = 2-16 3491589746) BUN (test code = 53 mg/dL 7-23 H 8299902640) GLUCOSE (test code = 146 mg/dL 70-110 H 3591455811) CREATININE (test code = 0.91 mg/dL 0.60-1.25 7708849734) CALCIUM (test code = 9.1 mg/dL 8.6-10.6 3760348024) eGFR (test code = mL/min/1.73m2 8217398186) HAVEN (test code = HAVEN) Association of [...] tests). Lab Interpretation Abnormal (test code = 67262-8) [facility] METABOLIC PANEL (NA, K, CL, CO2, GLUCOSE, BUN, CREATININE, CA)2021-01-28 06:57:36 Test Item Value Reference Range Interpretation Comments NA (test code = 137 mmol/L 135-145 5697617072) K (test code = 4.1 mmol/L 3.5-5.0 8610606054) CL (test code = 90 mmol/L 98-108 L 9598075098) CO2 TOTAL (test code = 40 mmol/L 23-31 H 5013227485) AGAP (test code = 2-16 2709511046) BUN (test code = 53 mg/dL 7-23 H 5750299387) GLUCOSE (test code = 146 mg/dL 70-110 H 3785983407) CREATININE (test code = 0.91 mg/dL 0.60-1.25 0168402585) CALCIUM (test code = 9.1 mg/dL 8.6-10.6 0392874514) eGFR (test code = mL/min/1.73m2 7944300803) HAVEN (test code = HAVEN) Association of [...] tests). Lab Interpretation Abnormal (test code = 65104-1) [facility] 06:51:17 Test Item Value Reference Range Interpretation Comments MAGNESIUM (test code = 9343082855) 2.2 mg/dL 1.7-2.4 Lab Interpretation (test code = Normal 35675-6) [facility]20[facility] 06:51:17 Test Item Value Reference Range Interpretation Comments MAGNESIUM (test code = 2596332573) 2.2 mg/dL 1.7-2.4 Lab Interpretation (test code = Normal 71719-5) [facility]PH[facility]2021-[facility] 06:50:56 Test Item Value Reference Range Interpretation Comments PHOSPHORUS (test code = 1294665497) 2.5 mg/dL 2.5-5.0 Lab Interpretation (test code = Normal 30055-3) [facility]2021-[facility] 06:50:56 Test Item Value Reference Range Interpretation Comments PHOSPHORUS (test code = 8051587602) 2.5 mg/dL 2.5-5.0 Lab Interpretation (test code = Normal 88433-7) [facility] [id number] 21:32:04 Test Item Value Reference Range Interpretation Comments PH (test code = 2) 7.35-7.45 H PCO2 (test code = See_Comment H [Automat ed 3384016227) message] The sy stem which generated this result transmitted reference range : 35 - 45 mmHg. The reference range was not used to interpret this result as normal/abnormal . PO2 (test code = See_Comment L [Automated 2118407656) message] The sy stem which generated this result transmitted reference range : 80 - 100 mmHg. The reference range was not used to interpret this result as normal/abnormal . HCO3 (test code = See_Comment H [Automate d 6600818412) message] The sy stem which generated this result transmitted reference range : 22 - 26 mEq/L. The reference range was not used to interpret this result as normal/abnormal . BE (test code = See_Comment H [Automated 8777826804) message] The sy stem which generated this result transmitted reference range : -3.0 - 3.0 mEq/ L. The reference r fernando was not used to interpret this result as normal/abnormal . LACTIC ACID (test code 1.55 mmol/L 0.50-2.20 = 1675108406) Lab Interpretation Abnormal (test code = 12768-4) [facility] [id number] 21:32:04 Test Item Value Reference Range Interpretation Comments PH (test code = 2) 7.35-7.45 H PCO2 (test code = See_Comment H [Automat ed 4781421731) message] The sy stem which generated this result transmitted reference range : 35 - 45 mmHg. The reference range was not used to interpret this result as normal/abnormal . PO2 (test code = See_Comment L [Automated 6778922729) message] The sy stem which generated this result transmitted reference range : 80 - 100 mmHg. The reference range was not used to interpret this result as normal/abnormal . HCO3 (test code = See_Comment H [Automate d 2316304886) message] The sy stem which generated this result transmitted reference range : 22 - 26 mEq/L. The reference range was not used to interpret this result as normal/abnormal . BE (test code = See_Comment H [Automated 9691891014) message] The sy stem which generated this result transmitted reference range : -3.0 - 3.0 mEq/ L. The reference r fernando was not used to interpret this result as normal/abnormal . LACTIC ACID (test code 1.55 mmol/L 0.50-2.20 = 9376769591) Lab Interpretation Abnormal (test code = 62716-6) [facility] [id number] 20:41:30 Test Item Value Reference Range Interpretation Comments PH (test code = 7.32-7.42 H 6320289559) PCO2 SADIA (test code = See_Comment [Auto mated message] 4576355095) The system whic h generated this result transmitted ref erence range: 41 - 51 mmHg. The reference r fernando was not used to interpret this result as normal/abnor mal. PO2 SADIA (test code = See_Comment HH [Autom ated message] 4640643389) The system whic h generated this result transmitted ref erence range: 25 - 40 mmHg. The reference r fernando was not used to interpret this result as normal/abnor mal. HCO3 SADIA (test code = See_Comment H [Auto mated message] 2780132321) The system [employer] generated this result transmitted ref erence range: 24 - 28 mEq/L. The reference r fernando was not used to interpret this result as normal/abnor mal. AC VBE(BEAKER) (test mEq/L code = 4875413787) Lab Interpretation (test Abnormal code = 05705-8) [facility] [id number] 20:41:30 Test Item Value Reference Range Interpretation Comments PH (test code = 7.32-7.42 H 3818092150) PCO2 SADIA (test code = See_Comment [Auto mated message] 6561187121) The system [employer] generated this result transmitted ref erence range: 41 - 51 mmHg. The reference r fernando was not used to interpret this result as normal/abnor mal. PO2 SADIA (test code = See_Comment HH [Autom ated message] 6057176355) The system [employer] generated this result transmitted ref erence range: 25 - 40 mmHg. The reference r fernando was not used to interpret this result as normal/abnor mal. HCO3 SADIA (test code = See_Comment H [Auto mated message] 1668586379) The system [employer] generated this result transmitted ref erence range: 24 - 28 mEq/L. The reference r fernando was not used to interpret this result as normal/abnor mal. AC VBE(BEAKER) (test mEq/L code = 3760061748) Lab Interpretation (test Abnormal code = 88214-5) [facility] 1 [id number] 20:13:33 1. Moderate to large left pleural [...] discussed with nurse in charge of patient (Mckayrosa) at3:13 PM on 01/27/2021lectronically signed by Oskar Moy at 01/27/2021 3:13 PM[facility]XR CHEST 1 [id number] 20:13:33 1. Moderate to large left pleural effusion with adjacent atelectasis.2. Right-sided subclavian catheter with the tip overlying the aortic arch.This is concerning for an arterial placement of central venous catheter.Recommend removal. These findings were discussed with nurse in charge of patient (Mckayrosa) at 3:13 PM on 01/27/2021 Indication: Dyspnea ? Comparison: CT of the chest 01/25/2021 RL: [id number] ORDERING PHYSICIAN: ROSENDO TADEO TECHNIQUE: Single view of the chest. FINDINGS: Right-sided subclavian catheter with the tip overlying the aorticarch. Moderate to large left pleural effusion with adjacent atelectasis.Cardiomediastinal silhouette is within normal limits. ?No pneumothorax. Thebony structures are intact. Ut, Radiant Results Inft User - 01/27/2021 3:14 [...] signed by Oskar Moy at 01/27/2021 3:13 [facility] WITH [id number] 11:21:58 Test Item Value Reference Range Interpretation Comments WBC (test code = See_Comment [Automated 6690-2) message] The sy stem which generated this result transmitted reference range : 4.20 - 10.70 10*3/?L. The reference range was not used to interpret this result as normal/abnormal . RBC (test code = See_Comment L [Automated 639-8) message] The sy stem which generated this [...] (test code = 56.7 fL 38.5-51.6 H 42930-4) RDW-CV (test code = 19.3 % 12.1-15.4 H 788-0) PLT (test code = See_Comment [Automated 777-3) message] The sy stem which generated this result transmitted reference range : 150 - 328 10*3/ ?L. The reference r fernando was not used to interpret this result as normal/abnormal . MPV (test code = 9.6 fL 9.8-13.0 L 71905-0) NRBC/100 WBC (test See_Comment [Automat ed code = 3300585666) message] The system which generated this result transmitted reference range : 0.0 - 10.0 /100 WBCs. The refer ence range was not u sed to interpret th is result as normal/abnormal . NRBC x10^3 (test code <0.01 See_Comment [Auto mated = 9746018089) message] The s ystem which generated this result transmitted reference range : 10*3/?L. The reference range was not used to interpret this result as normal/abnormal . GRAN MAT (NEUT) % 80.1 % (test code = 770-8) IMM GRAN % (test code 0.70 % = 9675435371) LYMPH % (test code = 10.5 % 736-9) MONO % (test code = 8.5 % 5905-5) EOS % (test code = 0.1 % 713-8) BASO % (test code = 0.1 % 706-2) GRAN MAT x10^3(ANC) 5.61 10*3/uL 1.99-6.95 (test code = 4064570168) IMM GRAN x10^3 (test 0.05 10*3/uL 0.00-0.06 code = 0757430932) LYMPH x10^3 (test code 0.74 10*3/uL 1.09-3.23 L = 731-0) MONO x10^3 (test code 0.60 10*3/uL 0.36-1.02 = 742-7) EOS x10^3 (test code = <0.03 0.06-0.53 L 711-2) BASO x10^3 (test code <0.03 0.01-0.09 = 704-7) Lab Interpretation Abnormal (test code = 06892-8) [facility] WITH [id number] 11:21:58 Test Item Value Reference Range Interpretation [...] (test code = 56.7 fL 38.5-51.6 H 82454-4) RDW-CV (test code = 19.3 % 12.1-15.4 H 788-0) PLT (test code = See_Comment [Automated 777-3) message] The sy stem which generated this result transmitted reference range : 150 - 328 10*3/ ?L. The reference r fernando was not used to interpret this result as normal/abnormal . MPV (test code = 9.6 fL 9.8-13.0 L 60463-7) NRBC/100 WBC (test See_Comment [Automat ed code = 9756642484) message] The system which generated this result transmitted reference range : 0.0 - 10.0 /100 WBCs. The refer ence range was not u sed to interpret th is result as normal/abnormal . NRBC x10^3 (test code <0.01 See_Comment [Auto mated = 2104046935) message] The s ystem which generated this result transmitted reference range : 10*3/?L. The reference range was not used to interpret this result as normal/abnormal . GRAN MAT (NEUT) % 80.1 % (test code = 770-8) IMM GRAN % (test code 0.70 % = 7186746297) LYMPH % (test code = 10.5 % 736-9) MONO % (test code = 8.5 % 5905-5) EOS % (test code = 0.1 % 713-8) BASO % (test code = 0.1 % 706-2) GRAN MAT x10^3(ANC) 5.61 10*3/uL 1.99-6.95 (test code = 5409031326) IMM GRAN x10^3 (test 0.05 10*3/uL 0.00-0.06 code = 6445374359) LYMPH x10^3 (test code 0.74 10*3/uL 1.09-3.23 L = 731-0) MONO x10^3 (test code 0.60 10*3/uL 0.36-1.02 = 742-7) EOS x10^3 (test code = <0.03 0.06-0.53 L 711-2) BASO x10^3 (test code <0.03 0.01-0.09 = 704-7) Lab Interpretation Abnormal (test code = 59897-2) [facility] [id number] 11:18:57 Test Item Value Reference Range Interpretation Comments NT-proBNP (test code 2910 pg/mL See_Comment H [Autom ated = 0823343662) message] The system which generated this result transmitted reference range : <=125. The reference range was not used to interpret this result as normal/abnormal . HAVEN (test code = HAVEN) Biotin has been reported to cause a negative bias, interpret results relative to patient's use of biotin. Lab Interpretation Abnormal (test code = 17470-2) [id number] 11:18:57 Test Item Value Reference Range Interpretation Comments NT-proBNP (test code 2910 pg/mL See_Comment H [Autom ated = 0790657277) message] The system which generated this result transmitted reference range : <=125. The reference range was not used to interpret this result as normal/abnormal . HAVEN (test code = HAVEN) Biotin has been reported to cause a negative bias, interpret results relative to patient's use of biotin. Lab Interpretation Abnormal (test code = 20450-9) [facility] 11:16:35 Test Item Value Reference Range Interpretation Comments MAGNESIUM (test code = 6063141199) 1.3 mg/dL 1.7-2.4 L Lab Interpretation (test code = Abnormal 41895-4) [facility] 11:16[facility]35 Test Item Value Reference Range Interpretation Comments MAGNESIUM (test code = 4936738698) 1.3 mg/dL 1.7-2.4 L Lab Interpretation (test code = Abnormal 98906-7) [facility]OLIC PAN[facility] (40486)2021-01-27 11:16:15 Test Item Value Reference Range Interpretation Comments NA (test code = 139 mmol/L 135-145 5158476367) K (test code = 3.6 mmol/L 3.5-5.0 9288601047) CL (test code = 95 mmol/L 98-108 L 6008726257) CO2 TOTAL (test code = 39 mmol/L 23-31 H 1857423880) AGAP (test code = 2-16 7768387833) BUN (test code = 52 mg/dL 7-23 H 8114986300) GLUCOSE (test code = 96 mg/dL 70-110 0150909807) CREATININE (test code = 1.10 mg/dL 0.60-1.25 1069809286) TOTAL BILI (test code = 1.0 mg/dL 0.1-1.9 3396673691) CALCIUM (test code = 8.9 mg/dL 8.6-10.6 7216172605) T PROTEIN (test code = 7.0 g/dL 6.3-8.2 8539103118) ALBUMIN (test code = 3.2 g/dL 3.5-5.0 L 8885154070) ALK PHOS (test code = 232 U/L 34-122 H 1693497249) ALTv (test code = 38 U/L 5-50 1742-6) AST(SGOT) (test code = 47 U/L 13-40 H 3586144112) eGFR (test code = mL/min/1.73m2 6552968586) HAVEN (test code = HAVEN) Association of [...] tests). Lab Interpretation Abnormal (test code = 91370-8) [facility] 11:16:15 Test Item Value Reference Range Interpretation Comments PHOSPHORUS (test code = 7559461174) 2.3 mg/dL 2.5-5.0 L Lab Interpretation (test code = Abnormal 95351-9) [facility] (45384)2021-01-27 11:16:15 Test Item Value Reference Range Interpretation Comments NA (test code = 139 mmol/L 135-145 7843833280) K (test code = 3.6 mmol/L 3.5-5.0 3434644299) CL (test code = 95 mmol/L 98-108 L 9898920872) CO2 TOTAL (test code = 39 mmol/L 23-31 H 7144535760) AGAP (test code = 2-16 4086076710) BUN (test code = 52 mg/dL 7-23 H 9265668113) GLUCOSE (test code = 96 mg/dL 70-110 4817276785) CREATININE (test code = 1.10 mg/dL 0.60-1.25 0980167868) TOTAL BILI (test code = 1.0 mg/dL 0.1-1.4 8977831709) CALCIUM (test code = 8.9 mg/dL 8.6-10.6 4153192267) T PROTEIN (test code = 7.0 g/dL 6.3-8.2 4331486944) ALBUMIN (test code = 3.2 g/dL 3.5-5.0 L 0708365672) ALK PHOS (test code = 232 U/L 34-122 H 7323970302) ALTv (test code = 38 U/L 5-50 1742-6) AST(SGOT) (test code = 47 U/L 13-40 H 8889955587) eGFR (test code = mL/min/1.73m2 2234184345) HAVEN (test code = HAVEN) Association of [...] tests). Lab Interpretation Abnormal (test code = 37886-4) [facility] 11:16:15 Test Item Value Reference Range Interpretation Comments PHOSPHORUS (test code = 8630197399) 2.3 mg/dL 2.5-5.0 L Lab Interpretation (test code = Abnormal 20672-1) [facility] Center[facility] Trough Level - Draw no more than 60 minutes before the 1400 dose.2021-01-26 19:52:18 Test Item Value Reference Range Interpretation Comments VANCO TROUGH (test code 23.6 ug/mL 10.0-20.0 H = 7082848299) HAVEN (test code = HAVEN) Toxic Range: ?>20 ug/mL 15-20 ug/mL is recommended for severe infection or when Vancomycin KO is greater than or equal to 2. Lab Interpretation (test Abnormal code = 19183-3) [facility] - Draw no more than 60 minutes before the 1400 dose.2021-01-26 19:52:18 Test Item Value Reference Range Interpretation Comments VANCO TROUGH (test code 23.6 ug/mL 10.0-20.0 H = 7569848720) HAVEN (test code = HAVEN) Toxic Range: ?>20 ug/mL 15-20 ug/mL is recommended for severe infection or when Vancomycin KO is greater than or equal to 2. Lab Interpretation (test Abnormal code = 90088-5) [facility] CenterCBC WITH [id number] 12:06:34 Test Item Value Reference Range Interpretation Comments WBC (test code = See_Comment H [Automated 5790-2) message] The system which generated this result transmit josé antonio reference range : 4.20 - 10.70 10*3/?L. The reference range was not used to interpret this result as normal/abnormal . RBC (test code = See_Comment L [Automated 529-8) message] The system which generated this result [...] (test code = 57.1 fL 38.5-51.6 H 78882-7) RDW-CV (test code = 19.6 % 12.1-15.4 H 788-0) PLT (test code = See_Comment L [Automated 777-3) message] The system which generated this result transmit josé antonio reference range : 150 - 328 10*3/ ?L. The reference range was not u sed to interpret th is result as normal/abnormal . MPV (test code = 9.0 fL 9.8-13.0 L 85835-1) NRBC/100 WBC (test See_Comment [Automat ed code = 8395855279) message] The system which generated this result transmit josé antonio reference range : 0.0 - 10.0 /100 WBCs. The reference range was not used to interpret this result as normal/abnormal . NRBC x10^3 (test code <0.01 See_Comment [Auto mated = 0213195349) message] The system which generated this result transmit josé antonio reference range : 10*3/?L. The reference range was not used to interpret this result as normal/abnormal . GRAN MAT (NEUT) % 93.0 % (test code = 770-8) IMM GRAN % (test code 0.60 % = 0314451137) LYMPH % (test code = 3.1 % 736-9) MONO % (test code = 3.2 % 5905-5) EOS % (test code = 0.0 % 713-8) BASO % (test code = 0.1 % 706-2) GRAN MAT x10^3(ANC) 14.05 10*3/uL 1.99-6.95 H (test code = 0614730511) IMM GRAN x10^3 (test 0.09 10*3/uL 0.00-0.06 H code = 5877343205) LYMPH x10^3 (test code 0.47 10*3/uL 1.09-3.23 L = 731-0) MONO x10^3 (test code 0.49 10*3/uL 0.36-1.02 = 742-7) EOS x10^3 (test code = <0.03 0.06-0.53 L 711-2) BASO x10^3 (test code <0.03 0.01-0.09 = 704-7) ELLIPTO/OVAL (test 2+ See_Comment A [Automat ed code = 96565-3) message] The system which generated this result [...] 7792-5) REACT LYMPHS (test Rare code = 9818192372) TOXIC CHANGES (test Present A code = 803-7) Lab Interpretation Abnormal (test code = 20759-4) [facility] WITH [id number] 12:06:34 Test Item Value Reference Range Interpretation Comments WBC (test code = See_Comment H [Automated 1490-2) message] The system which generated this result transmit josé antonio reference range : 4.20 - 10.70 10*3/?L. The reference range was not used to interpret this result as normal/abnormal . RBC (test code = See_Comment L [Automated 679-8) message] The system which generated this result [...] (test code = 57.1 fL 38.5-51.6 H 39496-7) RDW-CV (test code = 19.6 % 12.1-15.4 H 788-0) PLT (test code = See_Comment L [Automated 777-3) message] The system which generated this result transmit josé antonio reference range : 150 - 328 10*3/ ?L. The reference range was not u sed to interpret th is result as normal/abnormal . MPV (test code = 9.0 fL 9.8-13.0 L 95685-4) NRBC/100 WBC (test See_Comment [Automat ed code = 9377131749) message] The system which generated this result transmit josé antonio reference range : 0.0 - 10.0 /100 WBCs. The reference range was not used to interpret this result as normal/abnormal . NRBC x10^3 (test code <0.01 See_Comment [Auto mated = 8643448948) message] The system which generated this result transmit josé antonio reference range : 10*3/?L. The reference range was not used to interpret this result as normal/abnormal . GRAN MAT (NEUT) % 93.0 % (test code = 770-8) IMM GRAN % (test code 0.60 % = 1321419788) LYMPH % (test code = 3.1 % 736-9) MONO % (test code = 3.2 % 5905-5) EOS % (test code = 0.0 % 713-8) BASO % (test code = 0.1 % 706-2) GRAN MAT x10^3(ANC) 14.05 10*3/uL 1.99-6.95 H (test code = 0554866158) IMM GRAN x10^3 (test 0.09 10*3/uL 0.00-0.06 H code = 0650298985) LYMPH x10^3 (test code 0.47 10*3/uL 1.09-3.23 L = 731-0) MONO x10^3 (test code 0.49 10*3/uL 0.36-1.02 = 742-7) EOS x10^3 (test code = <0.03 0.06-0.53 L 711-2) BASO x10^3 (test code <0.03 0.01-0.09 = 704-7) ELLIPTO/OVAL (test 2+ See_Comment A [Automat ed code = 78365-6) message] The system which generated this result [...] 7792-5) REACT LYMPHS (test Rare code = 9436624598) TOXIC CHANGES (test Present A code = 803-7) Lab Interpretation Abnormal (test code = 70141-4) [facility] [id number] 11:23:39 Test Item Value Reference Range Interpretation Comments NT-proBNP (test code 5050 pg/mL See_Comment H [Autom ated = 3237844623) message] The system which generated this result transmitted reference range : <=125. The reference range was not used to interpret this result as normal/abnormal . HAVEN (test code = HAVEN) Biotin has been reported to cause a negative bias, interpret results relative to patient's use of biotin. Lab Interpretation Abnormal (test code = 24492-3) [facility] [id number] 11:23:39 Test Item Value Reference Range Interpretation Comments NT-proBNP (test code 5050 pg/mL See_Comment H [Autom ated = 7103870335) message] The system which generated this result transmitted reference range : <=125. The reference range was not used to interpret this result as normal/abnormal . HAVEN (test code = HAVEN) Biotin has been reported to cause a negative bias, interpret results relative to patient's use of biotin. Lab Interpretation Abnormal (test code = 90112-0) [facility] Test Item Value Reference Range Interpretation Comments MAGNESIUM (test code = 7016153832) 2.1 mg/dL 1.7-2.4 Lab Interpretation (test code = Normal 49135-6) [facility]2021-08-06 11:20:57 Test Item Value Reference Range Interpretation Comments MAGNESIUM (test code = 5837449713) 2.1 mg/dL 1.7-2.4 Lab Interpretation (test code = Normal 25570-1) [facility]. METABOLIC PANEL (56991)2021-01-26 11:20:37 Test Item Value Reference Range Interpretation Comments NA (test code = 142 mmol/L 135-145 0373947450) K (test code = 3.3 mmol/L 3.5-5.0 L 3653994928) CL (test code = 102 mmol/L 98-108 4647932536) CO2 TOTAL (test code = 32 mmol/L 23-31 H 2519851378) AGAP (test code = 2-16 3747779369) BUN (test code = 47 mg/dL 7-23 H 1997554679) GLUCOSE (test code = 114 mg/dL 70-110 H 6604805278) CREATININE (test code = 1.37 mg/dL 0.60-1.25 H 6430458336) TOTAL BILI (test code = 1.1 mg/dL 0.1-1.2 7180450852) CALCIUM (test code = 8.7 mg/dL 8.6-10.6 0297704122) T PROTEIN (test code = 6.8 g/dL 6.3-8.2 0771405840) ALBUMIN (test code = 3.2 g/dL 3.5-5.0 L 1941595085) ALK PHOS (test code = 254 U/L 34-122 H 0424390782) ALTv (test code = 46 U/L 5-50 1742-6) AST(SGOT) (test code = 59 U/L 13-40 H 9385717854) eGFR (test code = mL/min/1.73m2 5079772972) HAVEN (test code = HAVEN) Association of [...] tests). Lab Interpretation Abnormal (test code = 48183-0) [facility] 11:20:37 Test Item Value Reference Range Interpretation Comments PHOSPHORUS (test code = 8799352611) 3.7 mg/dL 2.5-5.0 Lab Interpretation (test code = Normal 86744-1) [facility] (31808)2021-01-26 11:20:37 Test Item Value Reference Range Interpretation Comments NA (test code = 142 mmol/L 135-145 0109835985) K (test code = 3.3 mmol/L 3.5-5.0 L 7966414628) CL (test code = 102 mmol/L 98-108 3675221614) CO2 TOTAL (test code = 32 mmol/L 23-31 H 9580250208) AGAP (test code = 2-16 2036132709) BUN (test code = 47 mg/dL 7-23 H 7047978876) GLUCOSE (test code = 114 mg/dL 70-110 H 7964324928) CREATININE (test code = 1.37 mg/dL 0.60-1.25 H 2813512304) TOTAL BILI (test code = 1.1 mg/dL 0.1-1.6 5885803618) CALCIUM (test code = 8.7 mg/dL 8.6-10.6 8785027253) T PROTEIN (test code = 6.8 g/dL 6.3-8.2 6543410252) ALBUMIN (test code = 3.2 g/dL 3.5-5.0 L 7419284261) ALK PHOS (test code = 254 U/L 34-122 H 6389654798) ALTv (test code = 46 U/L 5-50 1742-6) AST(SGOT) (test code = 59 U/L 13-40 H 4651889586) eGFR (test code = mL/min/1.73m2 7277947743) HAVEN (test code = HAVEN) Association of [...] tests). Lab Interpretation Abnormal (test code = 80329-6) [facility] 11:20:37 Test Item Value Reference Range Interpretation Comments PHOSPHORUS (test code = 3466218265) 3.7 mg/dL 2.5-5.0 Lab Interpretation (test code = Normal 27626-1) [facility] CenterCT THORAX WO [id number] 00:54:06 1. ?Small to moderately sized left-sided [...] pneumonia. Please correlate clinically.RL: 135END OF REPORT [facility] TH[facility] WO [id number] 00:54:06 1. ?Small to moderately sized left-sided [...] abnormalities. No suspicious focalosseous lesions are seen. [facility], Radiant Results Inft User - 01/25/2021 7:55 [...] pneumonia. Please correlate clinically.RL: 135END OF REPORT [facility] METABOLIC PANEL (NA, K, CL, CO2, GLUCOSE, BUN, CREATININE, CA)2021-01-25 23:51:22 Test Item Value Reference Range Interpretation Comments NA (test code = 142 mmol/L 135-145 3128567055) K (test code = 2.6 mmol/L 3.5-5.0 LL 3445364793) CL (test code = 106 mmol/L 98-108 7282867926) CO2 TOTAL (test code = 27 mmol/L 23-31 2075587263) AGAP (test code = 2-16 3915473307) BUN (test code = 40 mg/dL 7-23 H 3018401827) GLUCOSE (test code = 112 mg/dL 70-110 H 5959042950) CREATININE (test code = 1.20 mg/dL 0.60-1.25 2866143904) CALCIUM (test code = 8.3 mg/dL 8.6-10.6 L 6590927270) eGFR (test code = mL/min/1.73m2 6750465330) HAVEN (test code = HAVEN) Association of [...] tests). Lab Interpretation Abnormal (test code = 28771-7) [facility] METABOLIC PANEL (NA, K, CL, CO2, GLUCOSE, BUN, CREATININE, CA)2021-01-25 23:51:22 Test Item Value Reference Range Interpretation Comments NA (test code = 142 mmol/L 135-145 4017296722) K (test code = 2.6 mmol/L 3.5-5.0 LL 1862652026) CL (test code = 106 mmol/L 98-108 5180649232) CO2 TOTAL (test code = 27 mmol/L 23-31 [id number]) AGAP (test code = 2-16 9931108384) BUN (test code = 40 mg/dL 7-23 H 8550794389) GLUCOSE (test code = 112 mg/dL 70-110 H 9037995211) CREATININE (test code = 1.20 mg/dL 0.60-1.25 4158779423) CALCIUM (test code = 8.3 mg/dL 8.6-10.6 L 3287492210) eGFR (test code = mL/min/1.73m2 9130778198) HAVEN (test code = HAVEN) Association of [...] tests). Lab Interpretation Abnormal (test code = 75148-9) [facility] Test Item Value Reference Range Interpretation Comments MAGNESIUM (test code = 4966619100) 1.4 mg/dL 1.7-2.4 L Lab Interpretation (test code = Abnormal 96393-1) [facility] Test Item Value Reference Range Interpretation Comments MAGNESIUM (test code = 9587336327) 1.4 mg/dL 1.7-2.4 L Lab Interpretation (test code = Abnormal 62158-2) [facility] Culture - Peripheral # [id number] 14:42:46 Test Item Value Reference Range Interpretation Comments Blood Culture-Aerobic Culture positive. No growth AA P revious (test code = 01935-5) See Blood prelim inary Culture Workup verified resu lt for additional was Culture I n information. Progress on 01/23/2021 at 070 2 CDT Blood Culture positive. No growth AA Previous Culture-Anaerobic See Blood preliminar y (test code = 36882-8) Culture Workup veri fied result for additional was Culture I n information. Progress on 01/23/2021 at 225 8 CDT Lab Interpretation Abnormal (test code = 16520-3) [facility] Culture - Peripheral # [id number] 14:42:46 Test Item Value Reference Range Interpretation Comments Blood Culture-Aerobic Culture positive. No growth AA P revious (test code = 95175-3) See Blood prelim inary Culture Workup verified resu lt for additional was Culture I n information. Progress on 01/23/2021 at 070 2 CDT Blood Culture positive. No growth AA Previous Culture-Anaerobic See Blood preliminar y (test code = 12834-1) Culture Workup veri fied result for additional was Culture I n information. Progress on 01/23/2021 at 225 8 CDT Lab Interpretation Abnormal (test code = 05019-3) [facility] [id number] 13:22:28Near complete opacification of the left thorax [...] mass and consolidated lung.Ordering physician: JAYA TAVAREZ RL [id number] ectronically signed by Jesse Benton MD at 01/25/2021 8:22 AM[facility] 1 [id number] 13:22:28Near complete opacification of the left thorax [...] by Jesse Benton MD at 01/25/2021 8:22 [facility] Ar[facility].2021-01-25 10:13:12 Test Item Value Reference Range Interpretation Comments PH (test code = 2) 7.35-7.45 PCO2 (test code = See_Comment [Automat ed message] 2679928372) The system [employer] generated this result transmitted ref erence range: 35 - 45 mmHg. The reference r fernando was not used to interpret this result as normal/abnor mal. PO2 (test code = See_Comment LL [Automated message] 0896123746) The system [employer] generated this result transmitted ref erence range: 80 - 100 mmHg. The reference r fernando was not used to interpret this result as normal/abnor mal. HCO3 (test code = See_Comment [Automate d message] 2343236298) The system [employer] generated this result transmitted ref erence range: 22 - 26 mEq/L. The reference r fernando was not used to interpret this result as normal/abnor mal. BE (test code = See_Comment [Automated message] 1590445980) The system [employer] generated this result transmitted ref erence range: -3.0 - 3 .0 mEq/L. The refe rence range was not u sed to interpret this result as normal/abnor mal. Lab Interpretation (test Abnormal code = 08341-4) [facility].2021-01-25 10:13:12 Test Item Value Reference Range Interpretation Comments PH (test code = 2) 7.35-7.45 PCO2 (test code = See_Comment [Automat ed message] 4840924001) The system [employer] generated this result transmitted ref erence range: 35 - 45 mmHg. The reference r fernando was not used to interpret this result as normal/abnor mal. PO2 (test code = See_Comment LL [Automated message] 5254670444) The system [facility] generated this result transmitted ref erence range: 80 - 100 mmHg. The reference r fernando was not used to interpret this result as normal/abnor mal. HCO3 (test code = See_Comment [Automate d message] 3800366508) The system [facility] generated this result transmitted ref erence range: 22 - 26 mEq/L. The reference r fernando was not used to interpret this result as normal/abnor mal. BE (test code = See_Comment [Automated message] 6250293843) The system [facility] generated this result transmitted ref erence range: -3.0 - 3 .0 mEq/L. The refe rence range was not u sed to interpret this result as normal/abnor mal. Lab Interpretation (test Abnormal code = 87043-9) [facility] WITH [id number] 09:34:42 Test Item Value Reference Range Interpretation Comments WBC (test code = See_Comment H [Automated 6690-2) message] The system which generated this result transmitted reference range : 4.20 - 10.70 10*3/?L. The reference range was not used to interpret this result as normal/abnormal . RBC (test code = See_Comment L [Automated 829-8) message] The system which generated this result [...] (test code = 59.0 fL 38.5-51.6 H 98046-1) RDW-CV (test code = 20.2 % 12.1-15.4 H 788-0) PLT (test code = See_Comment L [Automated 777-3) message] The system which generated this result transmitted reference range : 150 - 328 10*3/?L. The reference range was not used to interpret this result as normal/abnormal . MPV (test code = 9.5 fL 9.8-13.0 L 77934-8) NRBC/100 WBC (test See_Comment [Automat ed code = 5276141656) message] The system which generated this result transmitted reference range : 0.0 - 10.0 /100 WBCs. The reference range was not used to interpret this result as normal/abnormal . NRBC x10^3 (test code <0.01 See_Comment [Auto mated = 7698027087) message] The system which generated this result transmitted reference range : 10*3/?L. The reference range was not used to interpret this result as normal/abnormal . GRAN MAT (NEUT) % 94.8 % (test code = 770-8) IMM GRAN % (test code 0.30 % = 0829844429) LYMPH % (test code = 3.6 % 736-9) MONO % (test code = 1.0 % 5905-5) EOS % (test code = 0.0 % 713-8) BASO % (test code = 0.3 % 706-2) GRAN MAT x10^3(ANC) 10.69 10*3/uL 1.99-6.95 H (test code = 0152944260) IMM GRAN x10^3 (test 0.03 10*3/uL 0.00-0.06 code = 2027110598) LYMPH x10^3 (test 0.41 10*3/uL 1.09-3.23 L code = 731-0) MONO x10^3 (test code 0.11 10*3/uL 0.36-1.02 L = 742-7) EOS x10^3 (test code <0.03 0.06-0.53 L = 711-2) BASO x10^3 (test code 0.03 10*3/uL 0.01-0.09 = 704-7) ZANDRA CELLS (test code 2+ See_Comment A [Auto mated = 4100-9) message] The system which generated this result transmitted reference range : (none). The reference range was not used to interpret this result as normal/abnormal . ELLIPTO/OVAL (test 2+ See_Comment A [Automat ed code = 60648-9) message] The system which generated this result transmitted reference range : (none). The reference range was not used to interpret this result as normal/abnormal . POLYCHROMASIA (test 2+ See_Comment [Automa josé antonio code = 28328-7) message] The system which generated this result transmitted reference range : 2+. The referen ce range was not used to interpr et this result as normal/abnormal . ROULEAUX (test code = Present See_Comment A [Auto mated 1879-4) message] The system which generated this result transmitted reference range : (none). The reference range was not used to interpret this result as normal/abnormal . BANDS (test code = MARKED INCREASED A 9914256734) DOHLE BODIES (test Present A code = 7792-5) TOXIC CHANGES (test Present A code = 803-7) Lab Interpretation Abnormal (test code = 39710-0) [facility] WITH [id number] 09:34:42 Test Item Value Reference Range Interpretation Comments WBC (test code = See_Comment H [Automated 5341-2) message] The system which generated this result transmitted reference range : 4.20 - 10.70 10*3/?L. The reference range was not used to interpret this result as normal/abnormal . RBC (test code = See_Comment L [Automated 301-8) message] The system which generated this result [...] (test code = 59.0 fL 38.5-51.6 H 49039-5) RDW-CV (test code = 20.2 % 12.1-15.4 H 788-0) PLT (test code = See_Comment L [Automated 777-3) message] The system which generated this result transmitted reference range : 150 - 328 10*3/?L. The reference range was not used to interpret this result as normal/abnormal . MPV (test code = 9.5 fL 9.8-13.0 L 72677-9) NRBC/100 WBC (test See_Comment [Automat ed code = 0174856977) message] The system which generated this result transmitted reference range : 0.0 - 10.0 /100 WBCs. The reference range was not used to interpret this result as normal/abnormal . NRBC x10^3 (test code <0.01 See_Comment [Auto mated = 0497385927) message] The system which generated this result transmitted reference range : 10*3/?L. The reference range was not used to interpret this result as normal/abnormal . GRAN MAT (NEUT) % 94.8 % (test code = 770-8) IMM GRAN % (test code 0.30 % = 0326466226) LYMPH % (test code = 3.6 % 736-9) MONO % (test code = 1.0 % 5905-5) EOS % (test code = 0.0 % 713-8) BASO % (test code = 0.3 % 706-2) GRAN MAT x10^3(ANC) 10.69 10*3/uL 1.99-6.95 H (test code = 8576928813) IMM GRAN x10^3 (test 0.03 10*3/uL 0.00-0.06 code = 0876712136) LYMPH x10^3 (test 0.41 10*3/uL 1.09-3.23 L code = 731-0) MONO x10^3 (test code 0.11 10*3/uL 0.36-1.02 L = 742-7) EOS x10^3 (test code <0.03 0.06-0.53 L = 711-2) BASO x10^3 (test code 0.03 10*3/uL 0.01-0.09 = 704-7) ZANDRA CELLS (test code 2+ See_Comment A [Auto mated = 7790-9) message] The system which generated this result transmitted reference range : (none). The reference range was not used to interpret this result as normal/abnormal . ELLIPTO/OVAL (test 2+ See_Comment A [Automat ed code = 87742-3) message] The system which generated this result transmitted reference range : (none). The reference range was not used to interpret this result as normal/abnormal . POLYCHROMASIA (test 2+ See_Comment [Automa josé antonio code = 93749-1) message] The system which generated this result [...] BANDS (test code = MARKED INCREASED A 3563776355) DOHLE BODIES (test Present A code = 7792-5) TOXIC CHANGES (test Present A code = 803-7) Lab Interpretation Abnormal (test code = 19598-2) [facility] [id number] 08:59:54 Test Item Value Reference Range Interpretation Comments NT-proBNP (test code 3800 pg/mL See_Comment H [Autom ated = 8212546836) message] The system which generated this result transmitted reference range : <=125. The reference range was not used to interpret this result as normal/abnormal . HAVEN (test code = HAVEN) Biotin has been reported to cause a negative bias, interpret results relative to patient's use of biotin. Lab Interpretation Abnormal (test code = 35534-0) [facility] [id number] 08:59:54 Test Item Value Reference Range Interpretation Comments NT-proBNP (test code 3800 pg/mL See_Comment H [Autom ated = 6902221240) message] The system which generated this result transmitted reference range : <=125. The reference range was not used to interpret this result as normal/abnormal . HAVEN (test code = HAVNE) Biotin has been reported to cause a negative bias, interpret results relative to patient's use of biotin. Lab Interpretation Abnormal (test code = 22097-4) [facility] 08:52:34 Test Item Value Reference Range Interpretation Comments MAGNESIUM (test code = 6940015732) 1.4 mg/dL 1.7-2.4 L Lab Interpretation (test code = Abnormal 07187-8) [facility] 08:52:34 Test Item Value Reference Range Interpretation Comments MAGNESIUM (test code = 3676810283) 1.4 mg/dL 1.7-2.4 L Lab Interpretation (test code = Abnormal 32586-4) [facility]OL[facility] (95583)2021-01-25 08:52:13 Test Item Value Reference Range Interpretation Comments NA (test code = 141 mmol/L 135-145 0544331649) K (test code = 3.1 mmol/L 3.5-5.0 L 7824021047) CL (test code = 108 mmol/L 98-108 7853965313) CO2 TOTAL (test code = 26 mmol/L 23-31 1581777468) AGAP (test code = 2-16 3443182077) BUN (test code = 39 mg/dL 7-23 H 6366181698) GLUCOSE (test code = 91 mg/dL 70-110 3132903405) CREATININE (test code = 1.05 mg/dL 0.60-1.25 0324171645) TOTAL BILI (test code = 1.3 mg/dL 0.1-1.1 H 8456631281) CALCIUM (test code = 7.9 mg/dL 8.6-10.6 L 3376688674) T PROTEIN (test code = 6.2 g/dL 6.3-8.2 L 1924867959) ALBUMIN (test code = 3.0 g/dL 3.5-5.0 L 5890764427) ALK PHOS (test code = 191 U/L 34-122 H 8098119104) ALTv (test code = 54 U/L 5-50 H 2-6) AST(SGOT) (test code = 69 U/L 13-40 H 8998209193) eGFR (test code = mL/min/1.73m2 5469877665) HAVEN (test code = HAVEN) Association of [...] tests). Lab Interpretation Abnormal (test code = 42244-5) [facility]. METABOLIC PANEL ([id number])2021-01-25 08:52:13 Test Item Value Reference Range Interpretation Comments NA (test code = 141 mmol/L 135-145 5007663556) K (test code = 3.1 mmol/L 3.5-5.0 L 2482960616) CL (test code = 108 mmol/L 98-108 0666085598) CO2 TOTAL (test code = 26 mmol/L 23-31 0752951930) AGAP (test code = 2-16 6608416970) BUN (test code = 39 mg/dL 7-23 H 2494168879) GLUCOSE (test code = 91 mg/dL 70-110 5102464209) CREATININE (test code = 1.05 mg/dL 0.60-1.25 2203630045) TOTAL BILI (test code = 1.3 mg/dL 0.1-1.1 H 7646206897) CALCIUM (test code = 7.9 mg/dL 8.6-10.6 L 2123317104) T PROTEIN (test code = 6.2 g/dL 6.3-8.2 L 9829353231) ALBUMIN (test code = 3.0 g/dL 3.5-5.0 L 9810966148) ALK PHOS (test code = 191 U/L 34-122 H 7657520783) ALTv (test code = 54 U/L 5-50 H 1742-6) AST(SGOT) (test code = 69 U/L 13-40 H 6861638142) eGFR (test code = mL/min/1.73m2 4442135618) HAVEN (test code = HAVEN) Association of [...] tests). Lab Interpretation Abnormal (test code = 66833-7) [facility] [id number] 07:43:33 Test Item Value Reference Range Interpretation Comments LACTIC ACID (test code = 1.50 mmol/L 0.50-2.20 0168925425) Lab Interpretation (test code = Normal 46296-1) [facility] [id number] 07:43:33 Test Item Value Reference Range Interpretation Comments LACTIC ACID (test code = 1.50 mmol/L 0.50-2.20 7546907786) Lab Interpretation (test code = Normal 08830-9) [facility] Arterial Blood Gas. Please include lactic [id number] 07:42:42 Test Item Value Reference Range Interpretation Comments PH (test code = 2) 7.35-7.45 PCO2 (test code = See_Comment [Automat ed message] 8751161741) The system [employer] generated this result transmitted ref erence range: 35 - 45 mmHg. The reference r fernando was not used to interpret this result as normal/abnor mal. PO2 (test code = See_Comment L [Automated message] 0240848964) The system [employer] generated this result transmitted ref erence range: 80 - 100 mmHg. The reference r fernando was not used to interpret this result as normal/abnor mal. HCO3 (test code = See_Comment [Automate d message] 7993945242) The system [employer] generated this result transmitted ref erence range: 22 - 26 mEq/L. The reference r fernando was not used to interpret this result as normal/abnor mal. BE (test code = See_Comment [Automated message] 3173397456) The system [employer] generated this result transmitted ref erence range: -3.0 - 3 .0 mEq/L. The refe rence range was not u sed to interpret this result as normal/abnor mal. Lab Interpretation (test Abnormal code = 54141-7) [facility] Arterial Blood Gas. Please include lactic [id number] 07:42:42 Test Item Value Reference Range Interpretation Comments PH (test code = 2) 7.35-7.45 PCO2 (test code = See_Comment [Automat ed message] 7706320498) The system [employer] generated this result transmitted ref erence range: 35 - 45 mmHg. The reference r fernando was not used to interpret this result as normal/abnor mal. PO2 (test code = See_Comment L [Automated message] 2455667570) The system [employer] generated this result transmitted ref erence range: 80 - 100 mmHg. The reference r fernando was not used to interpret this result as normal/abnor mal. HCO3 (test code = See_Comment [Automate d message] 9128778226) The system [employer] generated this result transmitted ref erence range: 22 - 26 mEq/L. The reference r fernando was not used to interpret this result as normal/abnor mal. BE (test code = See_Comment [Automated message] 6616872145) The system [employer] generated this result transmitted ref erence range: -3.0 - 3 .0 mEq/L. The refe rence range was not u sed to interpret this result as normal/abnor mal. Lab Interpretation (test Abnormal code = 04777-7) [facility] Culture - Peripheral # [id number] 04:15:17 Test Item Value Reference Range Interpretation Comments Blood Culture-Aerobic Culture positive. No growth AA P revious (test code = 75562-1) See Blood prelim inary Culture Workup verified resu lt for additional was Culture I n information. Progress on 01/23/2021 at 070 2 CDT Blood Culture positive. No growth AA Previous Culture-Anaerobic See Blood preliminar y (test code = 43017-0) Culture Workup veri fied result for additional was Culture I n information. Progress on 01/23/2021 at 230 5 CDT Lab Interpretation Abnormal (test code = 31384-0) [facility] Culture - Peripheral # [id number] 04:15:17 Test Item Value Reference Range Interpretation Comments Blood Culture-Aerobic Culture positive. No growth AA P revious (test code = 36725-5) See Blood prelim inary Culture Workup verified resu lt for additional was Culture I n information. Progress on 01/23/2021 at 070 2 CDT Blood Culture positive. No growth AA Previous Culture-Anaerobic See Blood preliminar y (test code = 11140-5) Culture Workup veri fied result for additional was Culture I n information. Progress on 01/23/2021 at 230 5 CDT Lab Interpretation Abnormal (test code = 18672-5) [facility] POSITIVE BLOOD PATHOGENS DNA [id number] 00:14:26 Test Item Value Reference Range Interpretation Comments Coagulase Negative Positive Negative, See A Staphylococcus (test Comment/Narrative code = 43130-7) HAVEN (test code = HAVEN) Coagulase negative [...] contact the Antimicrobial Stewardship Program with questions.Pager: ?[phone] Testing included eleven identification and three resistance marker targets. Lab Interpretation Abnormal (test code = 80641-8) [facility] POSITIVE BLOOD PATHOGENS DNA [id number] 00:14:26 Test Item Value Reference Range Interpretation Comments Coagulase Negative Positive Negative, See A Staphylococcus (test Comment/Narrative code = 01415-9) HAVEN (test code = HAVEN) Coagulase negative [...] contact the Antimicrobial Stewardship Program with questions.Pager: ?[phone] Testing included eleven identification and three resistance marker targets. Lab Interpretation Abnormal (test code = 38908-6) [facility] - Draw no more than 60 minutes before the 1400 dose.2021-01-24 19:57:17 Test Item Value Reference Range Interpretation Comments VANCO TROUGH (test code 17.1 ug/mL 10.0-20.0 = 5861204010) HAVEN (test code = HAVEN) Toxic Range: ?>20 ug/mL 15-20 ug/mL is recommended for severe infection or when Vancomycin KO is greater than or equal to 2. Lab Interpretation (test Normal code = 63346-0) [facility] - Draw no more than 60 minutes before the 1400 dose.2021-01-24 19:57:17 Test Item Value Reference Range Interpretation Comments VANCO TROUGH (test code 17.1 ug/mL 10.0-20.0 = 9775092747) HAVEN (test code = HAVEN) Toxic Range: ?>20 ug/mL 15-20 ug/mL is recommended for severe infection or when Vancomycin KO is greater than or equal to 2. Lab Interpretation (test Normal code = 95501-6) [facility] NEGATIVE BLOOD PATHOGENS DNA [id number] 19:17:52 Test Item Value Reference Range Interpretation Comments Blood Pathogens by No organisms included in DNA Comment (test the Blood DNA Probe test code = 81644-9) panel were detected. Further identification workup to be performed by culture testing methods. HAVEN (test code = See blood culture result HAVEN) for additional information. ?Testing included eight identification and six resistance marker targets. [facility] NEGATIVE BLOOD PATHOGENS DNA [id number] 19:17:52 Test Item Value Reference Range Interpretation Comments Blood Pathogens by No organisms included in DNA Comment (test the Blood DNA Probe test code = 21797-1) panel were detected. Further identification workup to be performed by culture testing methods. HAVEN (test code = See blood culture result HAVEN) for additional information. ?Testing included eight identification and six resistance marker targets. [facility] P[facility] W [id number] 18:33:52Findings most consistent with acute enterocolitis, infectious [...] the medial aspect of the rightlower lobe. [facility], Radiant Results Inft User - 01/24/2021 1:35 [...] than right, could represent atelectasisand/or pneumonia.RL: 7000 Un[facility]CT ABDOMEN PELVIS W [id number] 18:33:52Findings most consistent with acute enterocolitis, infectious [...] the medial aspect of the rightlower lobe. [facility], Radiant Results Inft User - 01/24/2021 1:35 [...] than right, could represent atelectasisand/or pneumonia.RL: 7000 Un[facility]XR CHEST 1 [id number] 17:55:13 Moderate-sized left pleural effusion with left [...] have reviewed this study and agree withtheabove report.[facility] [id number] 17:55:13 Moderate-sized left pleural effusion with left [...] have reviewed this study and agree withtheabove report.[facility] WITH [id number] 15:09:46 Test Item Value Reference Range Interpretation [...] (test code = 61.1 fL 38.5-51.6 H 66280-8) RDW-CV (test code = 20.8 % 12.1-15.4 H 788-0) PLT (test code = See_Comment [Automated 777-3) message] The system which generated this result transmit josé antonio reference range : 150 - 328 10*3/ ?L. The reference range was not u sed to interpret th is result as normal/abnormal . MPV (test code = 9.5 fL 9.8-13.0 L 36492-2) NRBC/100 WBC (test See_Comment [Automat ed code = 5377138981) message] The system which generated this result transmit josé antonio reference range : 0.0 - 10.0 /100 WBCs. The reference range was not used to interpret this result as normal/abnormal . NRBC x10^3 (test code <0.01 See_Comment [Auto mated = 2726284350) message] The system which generated this result transmit josé antonio reference range : 10*3/?L. The reference range was not used to interpret this result as normal/abnormal . SEG % (test code = 28 % 33-76 L 27653-1) BAND % (test code = 60 % 0-1 H 66439-4) META % (test code = 4 % See_Comment H [Automa josé antonio 63399-0) message] The system which generated this result transmit josé antonio reference range : <=0. The refere nce range was not u sed to interpret th is result as normal/abnormal . LYMPH % (test code = 4 % 14-54 L 04740-1) MONO % (test code = 4 % 0-4 46505-3) ANC (test code = 14.15 10*3/uL 1.99-6.95 H 8088431985) Lab Interpretation Abnormal (test code = 91151-6) [facility] WITH [id number] 15:09:46 Test Item Value Reference Range Interpretation [...] (test code = 61.1 fL 38.5-51.6 H 43897-1) RDW-CV (test code = 20.8 % 12.1-15.4 H 788-0) PLT (test code = See_Comment [Automated 777-3) message] The system which generated this result transmit josé antonio reference range : 150 - 328 10*3/ ?L. The reference range was not u sed to interpret th is result as normal/abnormal . MPV (test code = 9.5 fL 9.8-13.0 L 32993-2) NRBC/100 WBC (test See_Comment [Automat ed code = 1471964870) message] The system which generated this result transmit josé antonio reference range : 0.0 - 10.0 /100 WBCs. The reference range was not used to interpret this result as normal/abnormal . NRBC x10^3 (test code <0.01 See_Comment [Auto mated = 6650492854) message] The system which generated this result transmit josé antonio reference range : 10*3/?L. The reference range was not used to interpret this result as normal/abnormal . SEG % (test code = 28 % 33-76 L 51427-8) BAND % (test code = 60 % 0-1 H 32172-9) META % (test code = 4 % See_Comment H [Automa josé antonio 94783-9) message] The system which generated this result transmit josé antonio reference range : <=0. The refere nce range was not u sed to interpret th is result as normal/abnormal . LYMPH % (test code = 4 % 14-54 L 89391-1) MONO % (test code = 4 % 0-4 31538-1) ANC (test code = 14.15 10*3/uL 1.99-6.95 H 9845585186) Lab Interpretation Abnormal (test code = 15427-8) [id number] 14:52:45 Test Item Value Reference Range Interpretation Comments NT-proBNP (test code 7340 pg/mL See_Comment H [Autom ated = 8150712924) message] The system which generated this result transmitted reference range : <=125. The reference range was not used to interpret this result as normal/abnormal . HAVEN (test code = HAVEN) Biotin has been reported to cause a negative bias, interpret results relative to patient's use of biotin. Lab Interpretation Abnormal (test code = 37139-8) [facility] [id number] 14:52:45 Test Item Value Reference Range Interpretation Comments NT-proBNP (test code 7340 pg/mL See_Comment H [Autom ated = 1864913514) message] The system which generated this result transmitted reference range : <=125. The reference range was not used to interpret this result as normal/abnormal . HAVEN (test code = HAVEN) Biotin has been reported to cause a negative bias, interpret results relative to patient's use of biotin. Lab Interpretation Abnormal (test code = 33009-6) [facility] ([id number])2021-01-24 14:44:03 Test Item Value Reference Range Interpretation Comments NA (test code = 139 mmol/L 135-145 7151005031) K (test code = 3.6 mmol/L 3.5-5.0 7831833489) CL (test code = 107 mmol/L 98-108 7568439924) CO2 TOTAL (test code = 23 mmol/L 23-31 9302899917) AGAP (test code = 2-16 3101810968) BUN (test code = 48 mg/dL 7-23 H 4095538739) GLUCOSE (test code = 88 mg/dL 70-110 9289578255) CREATININE (test code = 1.23 mg/dL 0.60-1.25 2647512102) TOTAL BILI (test code = 1.6 mg/dL 0.1-1.1 H 8523035764) CALCIUM (test code = 7.7 mg/dL 8.6-10.6 L 7925310968) T PROTEIN (test code = 6.5 g/dL 6.3-8.2 8944369229) ALBUMIN (test code = 2.9 g/dL 3.5-5.0 L 2799267090) ALK PHOS (test code = 213 U/L 34-122 H 9991242418) ALTv (test code = 58 U/L 5-50 H 1742-6) AST(SGOT) (test code = 96 U/L 13-40 H 7751330319) eGFR (test code = mL/min/1.73m2 1304990791) HAVEN (test code = HAVEN) Association of [...] tests). Lab Interpretation Abnormal (test code = 32211-8) [facility]. METABOLIC PANEL ([id number])2021-01-24 14:44:03 Test Item Value Reference Range Interpretation Comments NA (test code = 139 mmol/L 135-145 1967633666) K (test code = 3.6 mmol/L 3.5-5.0 9056084358) CL (test code = 107 mmol/L 98-108 6998529764) CO2 TOTAL (test code = 23 mmol/L 23-31 9359552461) AGAP (test code = 2-16 6237058319) BUN (test code = 48 mg/dL 7-23 H 1545021109) GLUCOSE (test code = 88 mg/dL 70-110 7870226148) CREATININE (test code = 1.23 mg/dL 0.60-1.25 9271349400) TOTAL BILI (test code = 1.6 mg/dL 0.1-1.1 H 1236817906) CALCIUM (test code = 7.7 mg/dL 8.6-10.6 L 4218473325) T PROTEIN (test code = 6.5 g/dL 6.3-8.2 2705534659) ALBUMIN (test code = 2.9 g/dL 3.5-5.0 L 9332647017) ALK PHOS (test code = 213 U/L 34-122 H 6543599169) ALTv (test code = 58 U/L 5-50 H 1742-6) AST(SGOT) (test code = 96 U/L 13-40 H 5055473211) eGFR (test code = mL/min/1.73m2 0649592883) HAVEN (test code = HAVEN) Association of [...] tests). Lab Interpretation Abnormal (test code = 09638-5) [facility] [id number] 14:33:42 FINDINGS/IMPRESSION: Positioning slightly improved, however patient [...] [facility] Preliminary Report Dictated by Resident: Yash Baltazar [...] [facility]Preliminary Report Dictated by Resident: Yash Jimenez MD., have reviewed this study and agree with the abovereport.[facility] [id number] 14:33:42FINDINGS/IMPRESSION: Positioning slightly improved, however patient remains [...] transport to radiologydepartment.Preliminary Report Dictated by Resident: Yash Jimenez MD., have reviewed this study and agree with the abovereport.[facility] [id number] 14:31:12 Interval placement of subclavian central venous [...] along the left axilla. No pneumothorax isidentified. [facility], Radiant Results Inft User - 01/24/2021 9:32 [...] reviewed this study and agree with the abovereport.[facility] [id number] 14:31:12 Interval placement of subclavian central venous [...] along the left axilla. No pneumothorax isidentified. [facility], Radiant Results Inft User - 01/24/2021 9:32 [...] reviewed this study and agree with the abovereport.[facility] + LACTIC [id number] 13:20:05 Test Item Value Reference Range Interpretation Comments PH (test code = 2) 7.35-7.45 PCO2 (test code = See_Comment [Automat ed 4211921343) message] The sy stem which generated this result transmitted reference range : 35 - 45 mmHg. The reference range was not used to interpret this result as normal/abnormal . PO2 (test code = See_Comment H [Automated 9535391393) message] The sy stem which generated this result transmitted reference range : 80 - 100 mmHg. The reference range was not used to interpret this result as normal/abnormal . HCO3 (test code = See_Comment [Automate d 1393331518) message] The sy stem which generated this result transmitted reference range : 22 - 26 mEq/L. The reference range was not used to interpret this result as normal/abnormal . BE (test code = See_Comment L [Automated 1596898440) message] The sy stem which generated this result transmitted reference range : -3.0 - 3.0 mEq/ L. The reference r fernando was not used to interpret this result as normal/abnormal . THB (test code = 11.4 g/dL 13.5-18.0 L 9086169187) %O2HB (test code = 97.4 % 94.0-99.0 4796563041) %COHB ART (test code = 0.2 % 0.0-1.5 1477224417) %METHB ART (test code = 0.3 % 0.4-1.5 L 7830143839) VOL%O2 ART (test code = 15.8 % 15.0-23.0 5008799195) NA (test code = 138 mmol/L 135-145 7666957876) K+ (test code = 3.2 mmol/L 3.5-5.0 L 7259678363) AC CA IONZ (test code = 4.10 mg/dL 4.50-5.30 L 8497557842) GLUCOSE (test code = 92 mg/dL 70-110 8879183435) LACTIC ACID (test code 2.66 mmol/L 0.50-2.20 H = 4010614711) Lab Interpretation Abnormal (test code = 24349-7) [facility] [id number] 13:20:05 Test Item Value Reference Range Interpretation Comments PH (test code = 2) 7.35-7.45 PCO2 (test code = See_Comment [Automat ed 2868958048) message] The sy stem which generated this result transmitted reference range : 35 - 45 mmHg. The reference range was not used to interpret this result as normal/abnormal . PO2 (test code = See_Comment H [Automated 3841893046) message] The sy stem which generated this result transmitted reference range : 80 - 100 mmHg. The reference range was not used to interpret this result as normal/abnormal . HCO3 (test code = See_Comment [Automate d 9636083166) message] The sy stem which generated this result transmitted reference range : 22 - 26 mEq/L. The reference range was not used to interpret this result as normal/abnormal . BE (test code = See_Comment L [Automated 9619210175) message] The sy stem which generated this result transmitted reference range : -3.0 - 3.0 mEq/ L. The reference r fernando was not used to interpret this result as normal/abnormal . THB (test code = 11.4 g/dL 13.5-18.0 L 9333191618) %O2HB (test code = 97.4 % 94.0-99.0 2228325669) %COHB ART (test code = 0.2 % 0.0-1.5 5342650377) %METHB ART (test code = 0.3 % 0.4-1.5 L 4415793309) VOL%O2 ART (test code = 15.8 % 15.0-23.0 0360117264) NA (test code = 138 mmol/L 135-145 6394129904) K+ (test code = 3.2 mmol/L 3.5-5.0 L 8450062633) AC CA IONZ (test code = 4.10 mg/dL 4.50-5.30 L 7452395016) GLUCOSE (test code = 92 mg/dL 70-110 3326482733) LACTIC ACID (test code 2.66 mmol/L 0.50-2.20 H = 1061573878) Lab Interpretation Abnormal (test code = 94513-8) [facility] WITH [id number] 02:33:01 Test Item Value Reference Range Interpretation [...] (test code = 61.2 fL 38.5-51.6 H 69233-3) RDW-CV (test code = 20.9 % 12.1-15.4 H 788-0) PLT (test code = See_Comment [Automated 777-3) message] The system which generated this result transmit josé antonio reference range : 150 - 328 10*3/ ?L. The reference range was not u sed to interpret th is result as normal/abnormal . MPV (test code = 8.9 fL 9.8-13.0 L 05387-8) NRBC/100 WBC (test See_Comment [Automat ed code = 7870317709) message] The system which generated this result transmit josé antonio reference range : 0.0 - 10.0 /100 WBCs. The reference range was not used to interpret this result as normal/abnormal . NRBC x10^3 (test code <0.01 See_Comment [Auto mated = 0877396083) message] The system which generated this result transmit josé antonio reference range : 10*3/?L. The reference range was not used to interpret this result as normal/abnormal . SEG % (test code = 56 % 33-76 62131-3) BAND % (test code = 28 % 0-1 H 12929-3) LYMPH % (test code = 12 % 14-54 L 74282-4) MONO % (test code = 4 % 0-4 36524-9) ANC (test code = 14.22 10*3/uL 1.99-6.95 H 2002361320) POLYCHROMASIA (test 2+ See_Comment [Automa josé antonio code = 05446-2) message] The system which generated this result transmit josé antonio reference range : 2+. The referen ce range was not u sed to interpret th is result as normal/abnormal . DOHLE BODIES (test Present A code = 7792-5) TOXIC CHANGES (test Present A code = 803-7) PLT ESTIMATE (test Normal Normal code = 9317-9) Lab Interpretation Abnormal (test code = 17238-0) [facility] WITH [id number] 02:33:01 Test Item Value Reference Range Interpretation [...] (test code = 61.2 fL 38.5-51.6 H 71308-1) RDW-CV (test code = 20.9 % 12.1-15.4 H 788-0) PLT (test code = See_Comment [Automated 777-3) message] The system which generated this result transmit josé antonio reference range : 150 - 328 10*3/ ?L. The reference range was not u sed to interpret th is result as normal/abnormal . MPV (test code = 8.9 fL 9.8-13.0 L 32881-0) NRBC/100 WBC (test See_Comment [Automat ed code = 0132431792) message] The system which generated this result transmit josé antonio reference range : 0.0 - 10.0 /100 WBCs. The reference range was not used to interpret this result as normal/abnormal . NRBC x10^3 (test code <0.01 See_Comment [Auto mated = 7999072211) message] The system which generated this result transmit josé antonio reference range : 10*3/?L. The reference range was not used to interpret this result as normal/abnormal . SEG % (test code = 56 % 33-76 89054-2) BAND % (test code = 28 % 0-1 H 28855-7) LYMPH % (test code = 12 % 14-54 L 19719-1) MONO % (test code = 4 % 0-4 27433-3) ANC (test code = 14.22 10*3/uL 1.99-6.95 H 8060017168) POLYCHROMASIA (test 2+ See_Comment [Automa josé antonio code = 06361-1) message] The system which generated this result transmit josé antonio reference range : 2+. The referen ce range was not u sed to interpret th is result as normal/abnormal . DOHLE BODIES (test Present A code = 7792-5) TOXIC CHANGES (test Present A code = 803-7) PLT ESTIMATE (test Normal Normal code = 9317-9) Lab Interpretation Abnormal (test code = 09028-4) [facility]. METABOLIC PANEL ([id number])2021-01-24 02:24:24 Test Item Value Reference Range Interpretation Comments NA (test code = 140 mmol/L 135-145 3727194627) K (test code = 3.9 mmol/L 3.5-5.0 5229103945) CL (test code = 109 mmol/L 98-108 H 6997862645) CO2 TOTAL (test code = 16 mmol/L 23-31 L 5085118639) AGAP (test code = 2-16 4901374148) BUN (test code = 47 mg/dL 7-23 H 3605378846) GLUCOSE (test code = 107 mg/dL 70-110 0598350094) CREATININE (test code = 1.56 mg/dL 0.60-1.25 H 7009152079) TOTAL BILI (test code = 1.3 mg/dL 0.1-1.1 H 8674650754) CALCIUM (test code = 7.5 mg/dL 8.6-10.6 L 8469640114) T PROTEIN (test code = 6.8 g/dL 6.3-8.2 0944027595) ALBUMIN (test code = 3.1 g/dL 3.5-5.0 L 5463170360) ALK PHOS (test code = 256 U/L 34-122 H 7192368675) ALTv (test code = 68 U/L 5-50 H 1742-6) AST(SGOT) (test code = 90 U/L 13-40 H 7081733962) eGFR (test code = mL/min/1.73m2 6829853756) HAVEN (test code = HAVEN) Association of [...] tests). Lab Interpretation Abnormal (test code = 78375-4) [facility]. METABOLIC PANEL ([id number])2021-01-24 02:24:24 Test Item Value Reference Range Interpretation Comments NA (test code = 140 mmol/L 135-145 1357457289) K (test code = 3.9 mmol/L 3.5-5.0 4865343161) CL (test code = 109 mmol/L 98-108 H 5101269289) CO2 TOTAL (test code = 16 mmol/L 23-31 L 1996901350) AGAP (test code = 2-16 0275661570) BUN (test code = 47 mg/dL 7-23 H 8677636812) GLUCOSE (test code = 107 mg/dL 70-110 5345756331) CREATININE (test code = 1.56 mg/dL 0.60-1.25 H 1578770359) TOTAL BILI (test code = 1.3 mg/dL 0.1-1.1 H 5910175818) CALCIUM (test code = 7.5 mg/dL 8.6-10.6 L 5502219847) T PROTEIN (test code = 6.8 g/dL 6.3-8.2 0531645774) ALBUMIN (test code = 3.1 g/dL 3.5-5.0 L 8888401392) ALK PHOS (test code = 256 U/L 34-122 H 9343075656) ALTv (test code = 68 U/L 5-50 H 1742-6) AST(SGOT) (test code = 90 U/L 13-40 H 7221091622) eGFR (test code = mL/min/1.73m2 5980893359) HAVEN (test code = HAVEN) Association of [...] tests). Lab Interpretation Abnormal (test code = 69726-3) [facility] [id number] 02:20:25COVID DMT InterpretationInterpretation/Recommendations:Molecular NAAT Tests for Active [...] COVID-19 testing the patient has had at [facility], includingmolecular NAAT testing (more commonly known as PCR testing and Rapid ID Now testing) and antibody testing. It does not take into account any testing that a patient has had outside of the [facility] medical record. [facility] LABORATORY SERVICESCOVID SjdmzlaYLEA-OiI-3 Rapid ID NOW (no units) ? ? Date ? Value ? 01/22/2021 ? Not Detected ? ? ? 07/19/2020 ? Not Detected ? ? ? 07/12/2020 ? Positive (A) ? ? ? 06/21/2020 ? Positive (A) ? [facility]Un[facility] COVID [id number] 02:20:25COVID DMT InterpretationInterpretation/Recommendations:Molecular NAAT Tests for Active [...] COVID-19 testing the patient has had at [facility], includingmolecular NAAT testing (more commonly known as PCR testing and Rapid ID Now testing) and antibody testing. It does not take into account any testing that a patient has had outside of the [facility] medical record. [facility] LABORATORY SERVICESCOVID [id number]-RuR-6 Rapid ID NOW (no units) ? ? Date ? Value ? 01/22/2021 ? Not Detected ? ? ? 07/19/2020 ? Not Detected ? ? ? 07/12/2020 ? Positive (A) ? ? ? 06/21/2020 ? Positive (A) ? [facility] SERVICESUn[facility]N- TERMINAL [id number] 02:11:39 Test Item Value Reference Range Interpretation Comments NT-proBNP (test code 64934 pg/mL See_Comment H [Autom ated = 8230937736) message] The system which generated this result transmitted reference range : <=125. The reference range was not used to interpret this result as normal/abnormal . HAVEN (test code = HAVEN) Biotin has been reported to cause a negative bias, interpret results relative to patient's use of biotin. Lab Interpretation Abnormal (test code = 40162-3) [facility] [id number] 02:11:39 Test Item Value Reference Range Interpretation Comments NT-proBNP (test code 98035 pg/mL See_Comment H [Autom ated = 7078049309) message] The system which generated this result transmitted reference range : <=125. The reference range was not used to interpret this result as normal/abnormal . HAVEN (test code = HAVEN) Biotin has been reported to cause a negative bias, interpret results relative to patient's use of biotin. Lab Interpretation Abnormal (test code = 89575-2) [facility] Care Arterial Blood Gas.2021-01-24 01:32:02 Test Item Value Reference Range Interpretation Comments PH (test code = 2) 7.35-7.45 L PCO2 (test code = See_Comment [Automat ed message] 5731487028) The system [employer] generated this result transmitted ref erence range: 35 - 45 mmHg. The reference r fernando was not used to interpret this result as normal/abnor mal. PO2 (test code = See_Comment H [Automated message] 1006878755) The system [employer] generated this result transmitted ref erence range: 80 - 100 mmHg. The reference r fernando was not used to interpret this result as normal/abnor mal. HCO3 (test code = See_Comment L [Automate d message] 1712456634) The system [employer] generated this result transmitted ref erence range: 22 - 26 mEq/L. The reference r fernando was not used to interpret this result as normal/abnor mal. BE (test code = See_Comment L [Automated message] 1754501750) The system [employer] generated this result transmitted ref erence range: -3.0 - 3 .0 mEq/L. The refe rence range was not u sed to interpret this result as normal/abnor mal. Lab Interpretation (test Abnormal code = 80422-6) [facility] Arterial Blood Gas.2021-01-24 01:32:02 Test Item Value Reference Range Interpretation Comments PH (test code = 2) 7.35-7.45 L PCO2 (test code = See_Comment [Automat ed message] 7777131545) The system [employer] generated this result transmitted ref erence range: 35 - 45 mmHg. The reference r fernando was not used to interpret this result as normal/abnor mal. PO2 (test code = See_Comment H [Automated message] 2385117810) The system [employer] generated this result transmitted ref erence range: 80 - 100 mmHg. The reference r fernando was not used to interpret this result as normal/abnor mal. HCO3 (test code = See_Comment L [Automate d message] 9897286904) The system [employer] generated this result transmitted ref erence range: 22 - 26 mEq/L. The reference r fernando was not used to interpret this result as normal/abnor mal. BE (test code = See_Comment L [Automated message] 4015171936) The system [employer] generated this result transmitted ref erence range: -3.0 - 3 .0 mEq/L. The refe rence range was not u sed to interpret this result as normal/abnor mal. Lab Interpretation (test Abnormal code = 61021-4) [facility] CenterCritical [id number] 12:54:00Armando Walls DO ? ? 01/24/2021 ?7:56 [...] time. 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 Sequentialvital signs were obtained. Critical Care time reported above was performed exclusive of billable procedures[facility] Critical [id number] 12:54:00Armando Walls DO ? ? 01/24/2021 ?7:56 [...] time. 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 Sequentialvital signs were obtained. Critical Care time reported above was performed exclusive of billable proceduresUnHCA [facility]landAC PANEL 21 + LACTIC [id number] 11:40:00 Test Item Value Reference Range Interpretation Comments PH (test code = 7.32-7.42 LL 5569019982) PCO2 SADIA (test code = See_Comment [Auto mated 8146870182) message] The sy stem which generated this result transmitted reference range : 41 - 51 mmHg. The reference range was not used to interpret this result as normal/abnormal . PO2 SADIA (test code = See_Comment [Autom ated 7407567761) message] The sy stem which generated this result transmitted reference range : 25 - 40 mmHg. The reference range was not used to interpret this result as normal/abnormal . HCO3 SADIA (test code = See_Comment L [Auto mated 3466316212) message] The sy stem which generated this result transmitted reference range : 24 - 28 mEq/L. The reference range was not used to interpret this result as normal/abnormal . AC VBE(BEAKER) (test mEq/L code = 2382488330) THB SADIA (test code = 12.9 g/dL 13.5-18.0 L 9717166220) %O2HB SADIA (test code = 55.7 % 52.0-63.0 5503593077) %COHB SADIA (test code = 0.6 % 0.0-1.5 5479125969) %METHB SADIA (test code = 0.3 % 0.4-1.5 L 8457905653) VOL%O2 SADIA (test code = 10.1 % 6.0-12.0 0798593391) NA (test code = 144 mmol/L 135-145 6449048940) K+ (test code = 3.0 mmol/L 3.5-5.0 L 8571851747) AC CA IONZ (test code = 3.90 mg/dL 4.50-5.30 L 1467181007) GLUCOSE (test code = 148 mg/dL 70-110 H 4345155360) LACTIC ACID (test code 8.51 mmol/L 0.50-2.20 H = 6306400582) Lab Interpretation Abnormal (test code = 36347-0) [facility] + LACTIC [id number] 11:40:00 Test Item Value Reference Range Interpretation Comments PH (test code = 7.32-7.42 LL 5624486504) PCO2 SADIA (test code = See_Comment [Auto mated 5518037769) message] The sy stem which generated this result transmitted reference range : 41 - 51 mmHg. The reference range was not used to interpret this result as normal/abnormal . PO2 SADIA (test code = See_Comment [Autom ated 8164807192) message] The sy stem which generated this result transmitted reference range : 25 - 40 mmHg. The reference range was not used to interpret this result as normal/abnormal . HCO3 SADIA (test code = See_Comment L [Auto mated 8314051771) message] The sy stem which generated this result transmitted reference range : 24 - 28 mEq/L. The reference range was not used to interpret this result as normal/abnormal . AC VBE(BEAKER) (test mEq/L code = 7508328124) THB SADIA (test code = 12.9 g/dL 13.5-18.0 L 4065649875) %O2HB SADIA (test code = 55.7 % 52.0-63.0 0834056941) %COHB SADIA (test code = 0.6 % 0.0-1.5 8364191449) %METHB SADIA (test code = 0.3 % 0.4-1.5 L 8295623491) VOL%O2 SADIA (test code = 10.1 % 6.0-12.0 2173665719) NA (test code = 144 mmol/L 135-145 1981542482) K+ (test code = 3.0 mmol/L 3.5-5.0 L 9471846676) AC CA IONZ (test code = 3.90 mg/dL 4.50-5.30 L 7165590938) GLUCOSE (test code = 148 mg/dL 70-110 H 8296838839) LACTIC ACID (test code 8.51 mmol/L 0.50-2.20 H = 9987992949) Lab Interpretation Abnormal (test code = 29940-7) [facility]IS2021-[facility] 08:44:00 Test Item Value Reference Range Interpretation Comments APPEARANCE (test code = Turbid Clear A 0083464549) COLOR (test code = Radha Yellow A 1226885550) PH (test code = 4.8-8.0 6709983740) SP GRAVITY (test code = 1.003-1.030 7499846903) GLU U QUAL (test code = Normal Normal 6083469033) BLOOD (test code = 2+ Negative A 4369287667) KETONES (test code = Negative Negative 9625106293) PROTEIN (test code = 500 mg/dL Negative A 2887-8) UROBILIN (test code = 2.0 mg/dL Normal A 0713433433) BILIRUBIN (test code = Negative Negative 9930304264) NITRITE (test code = Negative Negative 7469425064) LEUK JOHAN (test code = 75/uL Negative A 4687399447) RBC/HPF (test code = See_Comment H [Autom ated message] 4325392266) The system [employer] generated this result transmit josé antonio reference range : 0 - 3 HPF. The refe rence range was not u sed to interpret th is result as normal/abnormal . WBC/HPF (test code = See_Comment H [Autom ated message] 1294762406) The system [employer] generated this result transmit josé antonio reference range : 0 - 5 HPF. The refe rence range was not u sed to interpret th is result as normal/abnormal . BACTERIA (test code = Moderate Negative A 2626250022) MUCOUS (test code = Slight Negative LPF A 5749406129) AMORPHOUS (test code = Rare Rare HPF 6869874857) WBC CLUMPS (test code = See_Comment H [Au tomated message] 3303330923) The system [employer] generated this result transmit josé antonio reference range : <=1 HPF. The refere nce range was not u sed to interpret th is result as normal/abnormal . YEAST BUD (test code = See_Comment H [Aut omated message] 1250388343) The system [employer] generated this result transmit josé antonio reference range : <=1 HPF. The refere nce range was not u sed to interpret th is result as normal/abnormal . TRANS EPI (test code = See_Comment H [Aut omated message] 4135733842) The system [employer] generated this result transmit josé antonio reference range : <=1 HPF. The refere nce range was not u sed to interpret th is result as normal/abnormal . Lab Interpretation (test Abnormal code = 82305-5) [facility] Test Item Value Reference Range Interpretation Comments APPEARANCE (test code = Turbid Clear A 4431778660) COLOR (test code = Radha Yellow A 8861572973) PH (test code = 4.8-8.0 4333433442) SP GRAVITY (test code = 1.003-1.030 0018295738) GLU U QUAL (test code = Normal Normal 3457454819) BLOOD (test code = 2+ Negative A 1865402478) KETONES (test code = Negative Negative 1100651435) PROTEIN (test code = 500 mg/dL Negative A 2887-8) UROBILIN (test code = 2.0 mg/dL Normal A 0944143272) BILIRUBIN (test code = Negative Negative 2425614284) NITRITE (test code = Negative Negative 5940421170) LEUK JOHAN (test code = 75/uL Negative A 4289473278) RBC/HPF (test code = See_Comment H [Autom ated message] 7400879905) The system [employer] generated this result transmit josé antonio reference range : 0 - 3 HPF. The refe rence range was not u sed to interpret th is result as normal/abnormal . WBC/HPF (test code = See_Comment H [Autom ated message] 2752287177) The system [employer] generated this result transmit josé antonio reference range : 0 - 5 HPF. The refe rence range was not u sed to interpret th is result as normal/abnormal . BACTERIA (test code = Moderate Negative A 9730163005) MUCOUS (test code = Slight Negative LPF A 7856456175) AMORPHOUS (test code = Rare Rare HPF 1878671367) WBC CLUMPS (test code = See_Comment H [Au tomated message] 1576631003) The system [employer] generated this result transmit josé antonio reference range : <=1 HPF. The refere nce range was not u sed to interpret th is result as normal/abnormal . YEAST BUD (test code = See_Comment H [Aut omated message] 4039802339) The system [employer] generated this result transmit josé antonio reference range : <=1 HPF. The refere nce range was not u sed to interpret th is result as normal/abnormal . TRANS EPI (test code = See_Comment H [Aut omated message] 5123833845) The system [employer] generated this result transmit josé antonio reference range : <=1 HPF. The refere nce range was not u sed to interpret th is result as normal/abnormal . Lab Interpretation (test Abnormal code = 12712-5) [facility] [id number] 07:36:10Sandra Summers, DO ? ? 01/23/2021 ?2:36 AMCentral LinePerformed by: Sandra Summers DOAuthorized by: Sandra Summers DO Consent: ?Consent obtained: ?Verbal ?Consent given [...] tolerance of procedure: ?Tolerated well, no immediate complicationsUnFrank[facility] [id number] 07:36:10 Sandra Summers, DO ? ? 01/23/2021 ?2:36 AMCentral LinePerformed by: Sandra Summers DOAuthorized by: Sandra Summers DO Consent: ?Consent obtained: ?Verbal ?Consent given [...] tolerance of procedure: ?Tolerated well, no immediate complicationsUnB[facility] WITH [id number] 05:33:38 Test Item Value Reference Range Interpretation Comments WBC (test code = See_Comment H [Automated 9590-2) message] The system which generated this result transmitted reference range : 4.20 - 10.70 10*3/?L. The reference range was not used to interpret this result as normal/abnormal . RBC (test code = See_Comment [Automated 249-8) message] The system which generated this result [...] (test code = 62.4 fL 38.5-51.6 H 53899-0) RDW-CV (test code = 21.2 % 12.1-15.4 H 788-0) PLT (test code = See_Comment [Automated 017-3) message] The system which generated this result transmitted reference range : 150 - 328 10*3/?L. The reference range was not used to interpret this result as normal/abnormal . MPV (test code = 8.5 fL 9.8-13.0 L 42257-7) NRBC/100 WBC (test See_Comment [Automat ed code = 8734772564) message] The system which generated this result transmitted reference range : 0.0 - 10.0 /100 WBCs. The reference range was not used to interpret this result as normal/abnormal . NRBC x10^3 (test code <0.01 See_Comment [Auto mated = 2061971933) message] The system which generated this result transmitted reference range : 10*3/?L. The reference range was not used to interpret this result as normal/abnormal . GRAN MAT (NEUT) % 85.5 % (test code = 770-8) IMM GRAN % (test code 0.70 % = 4700298529) LYMPH % (test code = 7.5 % 736-9) MONO % (test code = 5.9 % 5905-5) EOS % (test code = 0.1 % 713-8) BASO % (test code = 0.3 % 706-2) GRAN MAT x10^3(ANC) 11.82 10*3/uL 1.99-6.95 H (test code = 9988784649) IMM GRAN x10^3 (test 0.09 10*3/uL 0.00-0.06 H code = 8342914090) LYMPH x10^3 (test 1.04 10*3/uL 1.09-3.23 L code = 731-0) MONO x10^3 (test code 0.82 10*3/uL 0.36-1.02 = 742-7) EOS x10^3 (test code <0.03 0.06-0.53 L = 711-2) BASO x10^3 (test code 0.04 10*3/uL 0.01-0.09 = 704-7) ELLIPTO/OVAL (test 2+ See_Comment A [Automat ed code = 68747-2) message] The system which generated this result transmitted reference range : (none). The reference range was not used to interpret this result as normal/abnormal . POLYCHROMASIA (test 2+ See_Comment [Automa josé antonio code = 93806-5) message] The system which generated this result transmitted reference range : 2+. The referen ce range was not used to interpr et this result as normal/abnormal . BANDS (test code = MARKED INCREASED A 5767703063) REACT LYMPHS (test Rare code = 2295902338) GIANT PLATELETS (test Present See_Comment A [Auto mated code = 5908-9) message] The system which generated this result transmitted reference range : (none). The reference range was not used to interpret this result as normal/abnormal . Lab Interpretation Abnormal (test code = 85701-0) [facility] WITH [id number] 05:33:38 Test Item Value Reference Range Interpretation [...] (test code = 62.4 fL 38.5-51.6 H 48503-4) RDW-CV (test code = 21.2 % 12.1-15.4 H 788-0) PLT (test code = See_Comment [Automated 777-3) message] The system which generated this result transmitted reference range : 150 - 328 10*3/?L. The reference range was not used to interpret this result as normal/abnormal . MPV (test code = 8.5 fL 9.8-13.0 L 67245-8) NRBC/100 WBC (test See_Comment [Automat ed code = 4436554363) message] The system which generated this result transmitted reference range : 0.0 - 10.0 /100 WBCs. The reference range was not used to interpret this result as normal/abnormal . NRBC x10^3 (test code <0.01 See_Comment [Auto mated = 4304672143) message] The system which generated this result transmitted reference range : 10*3/?L. The reference range was not used to interpret this result as normal/abnormal . GRAN MAT (NEUT) % 85.5 % (test code = 770-8) IMM GRAN % (test code 0.70 % = 5859510248) LYMPH % (test code = 7.5 % 736-9) MONO % (test code = 5.9 % 5905-5) EOS % (test code = 0.1 % 713-8) BASO % (test code = 0.3 % 706-2) GRAN MAT x10^3(ANC) 11.82 10*3/uL 1.99-6.95 H (test code = 2877658742) IMM GRAN x10^3 (test 0.09 10*3/uL 0.00-0.06 H code = 8533426892) LYMPH x10^3 (test 1.04 10*3/uL 1.09-3.23 L code = 731-0) MONO x10^3 (test code 0.82 10*3/uL 0.36-1.02 = 742-7) EOS x10^3 (test code <0.03 0.06-0.53 L = 711-2) BASO x10^3 (test code 0.04 10*3/uL 0.01-0.09 = 704-7) ELLIPTO/OVAL (test 2+ See_Comment A [Automat ed code = 88248-7) message] The system which generated this result transmitted reference range : (none). The reference range was not used to interpret this result as normal/abnormal . POLYCHROMASIA (test 2+ See_Comment [Automa josé antonio code = 32690-5) message] The system which generated this result transmitted reference range : 2+. The referen ce range was not used to interpr et this result as normal/abnormal . BANDS (test code = MARKED INCREASED A 2611852461) REACT LYMPHS (test Rare code = 8615216488) GIANT PLATELETS (test Present See_Comment A [Auto mated code = 5908-9) message] The system which generated this result transmitted reference range : (none). The reference range was not used to interpret this result as normal/abnormal . Lab Interpretation Abnormal (test code = 70767-6) [facility] CenterTHYROID STIMULATING [id number] 05:29:48 Test Item Value Reference Range Interpretation Comments TSH (test code = See_Comment [Automated message] 6361264347) The system [employer] generated this result transmitted ref erence range: 0.45 - 4 .70 mIU/L. The refe rence range was not u sed to interpret this result as normal/abnor mal. Lab Interpretation (test Normal code = 69079-4) [facility] CenterTHY[facility]ID STIMULATING [id number] 05:29:48 Test Item Value Reference Range Interpretation Comments TSH (test code = See_Comment [Automated message] 5460387116) The system [employer] generated this result transmitted ref erence range: 0.45 - 4 .70 mIU/L. The refe rence range was not u sed to interpret this result as normal/abnor mal. Lab Interpretation (test Normal code = 32371-7) [facility] CenterTROPONIN [id number] 05:12:57 Test Item Value Reference Interpretation Comments Range TROPONIN I (test 0.034 ng/mL See_Comment [Automated code = 3852298373) message] The system which generated this result [...] biotin. Lab Interpretation Normal (test code = 33449-0) [facility] CenterTROP[facility]IN [id number] 05:12:57 Test Item Value Reference Interpretation Comments Range TROPONIN I (test 0.034 ng/mL See_Comment [Automated code = 5468494565) message] The system which generated this result [...] biotin. Lab Interpretation Normal (test code = 68042-5) [facility] CenterMAGN[facility]IUM2021-[facility]-03 05:11:57 Test Item Value Reference Range Interpretation Comments MAGNESIUM (test code = 9249895363) 1.1 mg/dL 1.7-2.4 L Lab Interpretation (test code = Abnormal 35924-4) [facility]57 Test Item Value Reference Range Interpretation Comments MAGNESIUM (test code = 6877610538) 1.1 mg/dL 1.7-2.4 L Lab Interpretation (test code = Abnormal 27362-4) [facility] CenterN-TERMINAL [id number] 05:08:17 Test Item Value Reference Range Interpretation Comments NT-proBNP (test code 4360 pg/mL See_Comment H [Autom ated = 9355627281) message] The system which generated this result transmitted reference range : <=125. The reference range was not used to interpret this result as normal/abnormal . HAVEN (test code = HAVEN) Biotin has been reported to cause a negative bias, interpret results relative to patient's use of biotin. Lab Interpretation Abnormal (test code = 21955-8) [facility] CenterN-TERMINAL [id number] 05:08:17 Test Item Value Reference Range Interpretation Comments NT-proBNP (test code 4360 pg/mL See_Comment H [Autom ated = 2403569127) message] The system which generated this result transmitted reference range : <=125. The reference range was not used to interpret this result as normal/abnormal . HAVEN (test code = HAVEN) Biotin has been reported to cause a negative bias, interpret results relative to patient's use of biotin. Lab Interpretation Abnormal (test code = 73319-0) [facility] CenterBASI METABOLIC PANEL (NA, K, CL, CO2, GLUCOSE, BUN, CREATININE, CA)2021-01-23 05:06:15 Test Item Value Reference Range Interpretation Comments NA (test code = 143 mmol/L 135-145 1029838343) K (test code = 3.1 mmol/L 3.5-5.0 L 8797533196) CL (test code = 106 mmol/L 98-108 2153228299) CO2 TOTAL (test code = 20 mmol/L 23-31 L 9676062070) AGAP (test code = 2-16 H 7321021192) BUN (test code = 33 mg/dL 7-23 H 7373763828) GLUCOSE (test code = 125 mg/dL 70-110 H 2269058695) CREATININE (test code = 1.73 mg/dL 0.60-1.25 H 9148410834) CALCIUM (test code = 8.9 mg/dL 8.6-10.6 6416704335) eGFR (test code = mL/min/1.73m2 6258281968) HAVEN (test code = HAVEN) Association of [...] tests). Lab Interpretation Abnormal (test code = 83123-6) [facility] CenterLIPASE2021-[facility] 05:06:15 Test Item Value Reference Range Interpretation Comments LIPASE (test code = 5792976491) 225 U/L 0-220 H Lab Interpretation (test code = Abnormal 82731-7) [facility] CenterBAS[facility]OLIC PANEL (NA, K, CL, CO2, GLUCOSE, BUN, CREATININE, CA)2021-01-23 05:06:15 Test Item Value Reference Range Interpretation Comments NA (test code = 143 mmol/L 135-145 3194999303) K (test code = 3.1 mmol/L 3.5-5.0 L 8310032688) CL (test code = 106 mmol/L 98-108 2025264470) CO2 TOTAL (test code = 20 mmol/L 23-31 L 7244923807) AGAP (test code = 2-16 H 6059888311) BUN (test code = 33 mg/dL 7-23 H 7458862974) GLUCOSE (test code = 125 mg/dL 70-110 H 6946565276) CREATININE (test code = 1.73 mg/dL 0.60-1.25 H 2472049431) CALCIUM (test code = 8.9 mg/dL 8.6-10.6 8616181225) eGFR (test code = mL/min/1.73m2 9605266913) HAVEN (test code = HAVEN) Association of [...] tests). Lab Interpretation Abnormal (test code = 32761-9) [facility] CenterL[facility]ASE2021-[facility] 05:06:15 Test Item Value Reference Range Interpretation Comments LIPASE (test code = 9532417148) 225 U/L 0-220 H Lab Interpretation (test code = Abnormal 96544-5) [facility] CenterHEPATIC FUNCTION PANEL (09146) (ALB,T.PRO,BILI T,BU/BC,ALT,AST,ALK PHOS)2021-01-23 05:06:14 Test Item Value Reference Range Interpretation Comments TOTAL BILI (test code = 4063388411) 1.5 mg/dL 0.1-1.1 H BILI UNCON (test code = 4367779583) 0.7 mg/dL 0.1-1.1 BILI CONJ (test code = 8672225821) 0.0 mg/dL 0.0-0.3 T PROTEIN (test code = 2390422302) 7.7 g/dL 6.3-8.2 ALBUMIN (test code = 0531539006) 3.9 g/dL 3.5-5.0 ALK PHOS (test code = 3136945256) 593 U/L 34-122 H ALTv (test code = 1742-6) 92 U/L 5-50 H AST(SGOT) (test code = 9968238235) 131 U/L 13-40 H Lab Interpretation (test code = Abnormal 05523-4) [facility] CenterHEPATIC FUNCTION PANEL (11530) (ALB,T.PRO,BILI T,BU/BC,ALT,AST,ALK PHOS)2021-01-23 05:06:14 Test Item Value Reference Range Interpretation Comments TOTAL BILI (test code = 3723501243) 1.5 mg/dL 0.1-1.1 H BILI UNCON (test code = 7174139122) 0.7 mg/dL 0.1-1.1 BILI CONJ (test code = 9981373048) 0.0 mg/dL 0.0-0.3 T PROTEIN (test code = 7135072225) 7.7 g/dL 6.3-8.2 ALBUMIN (test code = 5527593329) 3.9 g/dL 3.5-5.0 ALK PHOS (test code = 0572587272) 593 U/L 34-122 H ALTv (test code = 1742-6) 92 U/L 5-50 H AST(SGOT) (test code = 6278722967) 131 U/L 13-40 H Lab Interpretation (test code = Abnormal 40727-1) [facility] CenterCOVID-19 (ID NOW RAPID TESTING)2021-01-23 05:01:34 Test Item Value Reference Range Interpretation Comments SARS-CoV-2 Rapid ID NOW Not Detected Not Detected (test code = 04934-2) HAVEN (test code = HAVEN) ID NOW COVID-19 Assay is an isothermal nucleic acid amplification test intended for the qualitative detection of nucleic acid from SARS-CoV-2 viral RNA in nasopharyngeal ([employer]) specimens. It is used under Emergency Use [...] indicated. Lab Interpretation Normal (test code = 58512-8) [facility] CenterC[facility] (ID NOW RAPID TESTING)2021-01-23 05:01:34 Test Item Value Reference Range Interpretation Comments SARS-CoV-2 Rapid ID NOW Not Detected Not Detected (test code = 78223-0) HAVEN (test code = HAVEN) ID NOW COVID-19 Assay is an isothermal nucleic acid amplification test intended for the qualitative detection of nucleic acid from SARS-CoV-2 viral RNA in nasopharyngeal ([employer] COORD[employer]) specimens. It is used under Emergency Use [...] indicated. Lab Interpretation Normal (test code = 62693-5) [facility] CenterPROTHROMBIN TIME / [id number] 04:57:50 Test Item Value Reference Range Interpretation Comments PROTIME PATIENT (test See_Comment [Auto mated message] code = 5964-2) The system [employer] generated this result transmitted ref erence range: 12.0 - 1 4.7 Seconds. The re ference range was not u sed to interpret this result as normal/abnor mal. INR (test code = 6301-6) Nor mal INR <1.1; Warfarin Therap eutic range 2.0 to 3. 0 or 2.5 to 3.5, dep ending upon the indica tions. Lab Interpretation (test Normal code = 85536-2) [facility] CenterPROTHROMBIN TIME / [id number] 04:57:50 Test Item Value Reference Range Interpretation Comments PROTIME PATIENT (test See_Comment [Auto mated message] code = 5964-2) The system wh ich generated this result transmitted ref erence range: 12.0 - 1 4.7 Seconds. The re ference range was not u sed to interpret this result as normal/abnor mal. INR (test code = 6301-6) Nor mal INR <1.1; Warfarin Therap eutic range 2.0 to 3. 0 or 2.5 to 3.5, dep ending upon the indica tions. Lab Interpretation (test Normal code = 18526-2) [facility] CenterAC PANEL 21 + LACTIC [id number] 04:39:55 Test Item Value Reference Range Interpretation Comments PH (test code = 7.32-7.42 L 6647862915) PCO2 SADIA (test code = See_Comment [Auto mated 5259081816) message] The sy stem which generated this result transmitted reference range : 41 - 51 mmHg. The reference range was not used to interpret this result as normal/abnormal . PO2 SADIA (test code = See_Comment [Autom ated 0025322973) message] The sy stem which generated this result transmitted reference range : 25 - 40 mmHg. The reference range was not used to interpret this result as normal/abnormal . HCO3 SADIA (test code = See_Comment L [Auto mated 0611078372) message] The sy stem which generated this result transmitted reference range : 24 - 28 mEq/L. The reference range was not used to interpret this result as normal/abnormal . AC VBE(BEAKER) (test mEq/L code = 4302913335) THB SADIA (test code = 13.8 g/dL 13.5-18.0 5396232013) %O2HB SADIA (test code = 61.3 % 52.0-63.0 0200950169) %COHB SADIA (test code = 0.9 % 0.0-1.5 7373822440) %METHB SADIA (test code = 0.3 % 0.4-1.5 L 6931721436) VOL%O2 SADIA (test code = 11.9 % 6.0-12.0 6384404473) NA (test code = 143 mmol/L 135-145 0584068646) K+ (test code = 3.2 mmol/L 3.5-5.0 L 0236119789) AC CA IONZ (test code = 4.40 mg/dL 4.50-5.30 L 4603778528) GLUCOSE (test code = 124 mg/dL 70-110 H 5377274225) LACTIC ACID (test code 7.22 mmol/L 0.50-2.20 H = 8878160467) Lab Interpretation Abnormal (test code = 89375-4) [facility] CenterAC PANEL 21 + LACTIC [id number] 04:39:55 Test Item Value Reference Range Interpretation Comments PH (test code = 7.32-7.42 L 9373439846) PCO2 SADIA (test code = See_Comment [Auto mated 7955974638) message] The sy stem which generated this result transmitted reference range : 41 - 51 mmHg. The reference range was not used to interpret this result as normal/abnormal . PO2 SADIA (test code = See_Comment [Autom ated 3571448394) message] The sy stem which generated this result transmitted reference range : 25 - 40 mmHg. The reference range was not used to interpret this result as normal/abnormal . HCO3 SADIA (test code = See_Comment L [Auto mated 3455783143) message] The sy stem which generated this result transmitted reference range : 24 - 28 mEq/L. The reference range was not used to interpret this result as normal/abnormal . AC VBE(BEAKER) (test mEq/L code = 3023308233) THB SADIA (test code = 13.8 g/dL 13.5-18.0 7815601530) %O2HB SADIA (test code = 61.3 % 52.0-63.0 4605852144) %COHB SADIA (test code = 0.9 % 0.0-1.5 1357578631) %METHB SADIA (test code = 0.3 % 0.4-1.5 L 1885171445) VOL%O2 SADIA (test code = 11.9 % 6.0-12.0 2577012273) NA (test code = 143 mmol/L 135-145 0969832295) K+ (test code = 3.2 mmol/L 3.5-5.0 L 9470675080) AC CA IONZ (test code = 4.40 mg/dL 4.50-5.30 L 1768911425) GLUCOSE (test code = 124 mg/dL 70-110 H 4968078483) LACTIC ACID (test code 7.22 mmol/L 0.50-2.20 H = 3860686064) Lab Interpretation Abnormal (test code = 43506-8) [facility] W/AUTO [id number] 10:19:00 Test Item Value Reference Range Interpretation [...] SCAN NEEDED (test code = MDIFF) DIFFERENTIAL [id number] 10:19:00 Test Item Value Reference Range Interpretation Comments STAIN ACCEPTABILITY (test STAIN ACCEPTABLE code = STN ACCEPTABLE) HYPOCHROMIA (test code = 2+ HYPO) POIKILOCYTOSIS (test code = 1+ POIK) ANISOCYTOSIS (test code = 1+ ANISO) MICROCYTOSIS (test code = 1+ MICR) PLATELET ESTIMATE (test code ADEQUATE = PLTEST) PLATELET MORPHOLOGY (test NORMAL code = PLTMORPH) CBC W/AUTO [id number] 09:48:00 Test Item Value Reference Range Interpretation [...] SCAN NEEDED (test code = MDIFF) DIFFERENTIAL [id number] 09:48:00 Test Item Value Reference Range Interpretation Comments STAIN ACCEPTABILITY (test code = STN ACCEPTABLE) MORPHOLOGY COMMENT (test code = MOC) PLATELET ESTIMATE (test code = PLTEST) PLATELET MORPHOLOGY (test code = PLTMORPH) CBC W/AUTO [id number] 09:48:00 Test Item Value Reference Range Interpretation [...] SCAN NEEDED (test code = MDIFF) DIFFERENTIAL [id number] 09:48:00 Test Item Value Reference Range Interpretation Comments STAIN ACCEPTABILITY (test code = STN ACCEPTABLE) CABOT RINGS (test code = CAB) MORPHOLOGY COMMENT (test code = MOC) PLATELET ESTIMATE (test code = PLTEST) PLATELET MORPHOLOGY (test code = PLTMORPH) CBC W/AUTO [id number] 09:48:00 Test Item Value Reference Range Interpretation [...] SCAN NEEDED (test code = MDIFF) DIFFERENTIAL [id number] 09:48:00 Test Item Value Reference Range Interpretation Comments STAIN ACCEPTABILITY (test code = STN ACCEPTABLE) CABOT RINGS (test code = CAB) MORPHOLOGY COMMENT (test code = MOC) PLATELET ESTIMATE (test code = PLTEST) PLATELET MORPHOLOGY (test code = PLTMORPH) CBC W/AUTO [id number] 09:48:00 Test Item Value Reference Range Interpretation [...] SCAN NEEDED (test code = MDIFF) DIFFERENTIAL [id number] 09:48:00 Test Item Value Reference Range Interpretation Comments STAIN ACCEPTABILITY (test code = STN ACCEPTABLE) CABOT RINGS (test code = CAB) MORPHOLOGY COMMENT (test code = MOC) PLATELET ESTIMATE (test code = PLTEST) PLATELET MORPHOLOGY (test code = PLTMORPH) ECG 12 [id number] 18:00:39 Test Item Value Reference Range Interpretation [...] of 04-AUG-2020 01:10,-No significant change was found- [facility] [id number] 18:51:09 Test Item Value Reference Range Interpretation Comments Urine culture (test SEE COMMENT Bacteriu yosef screen code = 6872842) negative. [facility] RNA [Presence] in Respiratory specimen by SHANTEL with probe [id number] 05:59:29 Test Item Value Reference Range Interpretation Comments SARS-CoV-2 (COVID-19) RNA [Presence] Detected Not-Detected in Respiratory specimen by SHANTEL with probe detection (test code = 53688-5) SARS-CoV-2 (COVID-19) IgG+IgM Ab [Presence] in Serum or Plasma by Immunoassay 2020-07-23 11:15:00 Test Item Value Reference Range Interpretation Comments SARS-CoV-2 (COVID-19) IgG+IgM Ab Positive [Presence] in Serum or Plasma by Immunoassay (test code = 47092-5) SARS-CoV-2 (COVID-19) RNA [Presence] in Respiratory specimen by SHANTEL with probe [id number] 06:55:13 Test Item Value Reference Range Interpretation Comments SARS-CoV-2 (COVID-19) RNA [Presence] Detected Not-Detected in Respiratory specimen by SHANTEL with probe detection (test code = 75195-2) COVID-19 (ID NOW RAPID TESTING)2020-07-19 23:49:00 Test Item Value Reference Range Interpretation Comments SARS-CoV-2 Rapid ID NOW Not Detected Not Detected (test code = 05052-1) HAVEN (test code = HAVEN) ID NOW COVID-19 Assay is an isothermal nucleic acid amplification test intended for the qualitative detection of nucleic acid from SARS-CoV-2 viral RNA in nasopharyngeal ([employer] COORDINATOR) specimens. It is used under Emergency Use [...] indicated. Lab Interpretation Normal (test code = 78630-5) [facility] WITHOUT [id number] 13:19:00 Test Item Value Reference Range Interpretation Comments WBC (test code = 6690-2) See_Comment [A utomated message] The system [employer] generated this result transmit josé antonio reference range : 4.20 - 10.70 10*3/?L. The reference range was not used to interpret this result as normal/abnormal . RBC (test code = 789-8) See_Comment L [Au tomated message] The system [employer] generated this result transmit josé antonio reference [...] 777-3) See_Comment [Au tomated message] The system [employer] generated this result transmit josé antonio reference range : 150 - 328 10*3/?L. The reference range was not used to interpret this result as normal/abnormal . MPV (test code = 10.1 fL 9.8-13 04065-6) RDW-CV (test code = 17.4 % 12.1-15.4 H 788-0) RDW-SD (test code = 47.5 fL 38.5-51.6 87342-8) NRBC x10^3 (test code = <0.01 See_Comment [Au tomated message] 8824082081) The system [employer] generated this result transmit josé antonio reference range : 10*3/?L. The reference range was not used to interpret this result as normal/abnormal . NRBC/100 WBC (test code See_Comment [Au tomated message] = 6855951377) The system [employer] generated this result transmit josé antonio reference range : 0.0 - 10.0 /100 WBC s. The reference r fernando was not used to interpret this result as normal/abnormal . IPF % (test code = 5229627566) Lab Interpretation (test Abnormal code = 29985-7) [facility] METABOLIC PANEL (NA, K, CL, CO2, GLUCOSE, BUN, CREATININE, CA)2020-07-19 13:15:00 Test Item Value Reference Range Interpretation Comments NA (test code = 136 mmol/L 135-145 5193709846) K (test code = 4.1 mmol/L 3.5-5 8394504455) CL (test code = 107 mmol/L 98-108 0506774121) CO2 TOTAL (test code = 25 mmol/L 23-31 4900559375) AGAP (test code = 2-16 1374197019) BUN (test code = 17 mg/dL 7-23 1236945451) GLUCOSE (test code = 119 mg/dL 70-110 H 6444468966) CREATININE (test code = 0.78 mg/dL 0.6-1.25 3166789511) CALCIUM (test code = 7.8 mg/dL 8.6-10.6 L 9440968514) eGFR Calculation mL/min/1.73m2 (Non-) (test code = 4514150270) eGFR Calculation mL/min/1.73m2 () (test code = 0847114731) HAVEN (test code = HAVEN) Association of [...] tests). Lab Interpretation Abnormal (test code = 35408-5) [facility] 13:15:00 Test Item Value Reference Range Interpretation Comments MAGNESIUM (test code = 7050835694) 1.9 mg/dL 1.7-2.4 Lab Interpretation (test code = Normal 81370-5) [facility] [place] [id number] 19:44:00 Test Item Value Reference Range Interpretation Comments Feces Culture (test No Salmonella, No code = 625-4) Shigella, No Campylobacter, and No E. coli 0157 isolated. HAVEN (test code = HAVEN) Feces specimens are routinely cultured for Salmonella, Shigella, Campylobacter, and E. coli 0157. [facility] CenterTHYROID STIMULATING [id number] 16:17:00 Test Item Value Reference Range Interpretation Comments TSH (test code = See_Comment Biotin has been 3163233045) reported to cau se a negative bias, interpret resul ts relative to jesus garcia's use of biotin. [Automated mess age] The system [employer] generated this result transmitted ref erence range: 0.45 - 4 .70 mIU/L. The refe rence range was not u sed to interpret this result as normal/abnor mal. Lab Interpretation (test Normal code = 17684-6) [facility] (NA, K, CL, CO2, GLUCOSE, BUN, CREATININE, CA)2020-07-18 12:17:00 Test Item Value Reference Range Interpretation Comments NA (test code = 140 mmol/L 135-145 9592778987) K (test code = 3.9 mmol/L 3.5-5 5673447520) CL (test code = 108 mmol/L 98-108 8853751267) CO2 TOTAL (test code = 24 mmol/L 23-31 7650877263) AGAP (test code = 2-16 5834597824) BUN (test code = 14 mg/dL 7-23 5116258908) GLUCOSE (test code = 122 mg/dL 70-110 H 9098058319) CREATININE (test code = 0.76 mg/dL 0.6-1.25 9381081941) CALCIUM (test code = 8.2 mg/dL 8.6-10.6 L 9879058528) eGFR Calculation mL/min/1.73m2 (Non-) (test code = 9308955160) eGFR Calculation mL/min/1.73m2 () (test code = 9499956389) HAVEN (test code = HAVEN) Association of [...] tests). Lab Interpretation Abnormal (test code = 22275-0) [facility]20[facility] 12:17:00 Test Item Value Reference Range Interpretation Comments MAGNESIUM (test code = 5180579026) 2.0 mg/dL 1.7-2.4 Lab Interpretation (test code = Normal 78764-2) [facility] CenterCBC WITHOUT [id number] 11:40:00 Test Item Value Reference Range Interpretation Comments WBC (test code = 6690-2) See_Comment [A utomated message] The system [employer] generated this result transmit josé antonio reference range : 4.20 - 10.70 10*3/?L. The reference range was not used to interpret this result as normal/abnormal . RBC (test code = 789-8) See_Comment L [Au tomated message] The system [employer] generated this result transmit josé antonio reference [...] 777-3) See_Comment [Au tomated message] The system [employer] generated this result transmit josé antonio reference range : 150 - 328 10*3/?L. The reference range was not used to interpret this result as normal/abnormal . MPV (test code = 10.3 fL 9.8-13 91702-8) RDW-CV (test code = 17.1 % 12.1-15.4 H 788-0) RDW-SD (test code = 45.7 fL 38.5-51.6 01376-4) NRBC x10^3 (test code = <0.01 See_Comment [Au tomated message] 1754490611) The system [employer] generated this result transmit josé antonio reference range : 10*3/?L. The reference range was not used to interpret this result as normal/abnormal . NRBC/100 WBC (test code See_Comment [Au tomated message] = 7035070774) The system [employer] generated this result transmit josé antonio reference range : 0.0 - 10.0 /100 WBC s. The reference r fernando was not used to interpret this result as normal/abnormal . IPF % (test code = 5983809629) Lab Interpretation (test Abnormal code = 24060-3) [facility] CenterCALPROTECTIN, [id number] 01:07:00 Test Item Value Reference Range Interpretation Comments CALPROFECAL (test code = 435 ug/g See_Comment H REF ERENCE INTERVAL: 78607-0) Calprotectin, F ecal by Immunoassay ?Less than 50 ug/g.........No rmal ?50-120 ug/g........... ....[facility] ed, test should be ?re-evaluated i n 4-6 weeks. ?121 ug/ g or greater.......E levate dPerformed by A [facility] [employer] [place],[address] [facility]ly [facility], [facility] [address] zmq .[employer], Michael Garcia MD, Griselda holman. Director [Autom ated message] The sy stem which generated this result transmit josé antonio reference range : <=49. The refer ence range was not u sed to interpret this result as normal/abnor mal. Lab Interpretation (test Abnormal code = 82630-1) [facility] CenterPOMS GLUCOSE (AUTOMATED)2020-07-17 23:43:00 Test Item Value Reference Range Interpretation Comments POCT GLU (test code = 4372766311) 123 mg/dL 70-110 H Lab Interpretation (test code = Abnormal 23567-4) [facility] WITHOUT [id number] 19:50:00 Test Item Value Reference Range Interpretation Comments WBC (test code = 6690-2) See_Comment [A utomated message] The system [employer] generated this result transmit josé antonio reference range : 4.20 - 10.70 10*3/?L. The reference range was not used to interpret this result as normal/abnormal . RBC (test code = 789-8) See_Comment L [Au tomated message] The system [employer] generated this result transmit josé antonio reference [...] 777-3) See_Comment [Au tomated message] The system [employer] generated this result transmit josé antonio reference range : 150 - 328 10*3/?L. The reference range was not used to interpret this result as normal/abnormal . MPV (test code = 9.7 fL 9.8-13 L 79422-4) RDW-CV (test code = 16.9 % 12.1-15.4 H 788-0) RDW-SD (test code = 46.1 fL 38.5-51.6 80452-8) NRBC x10^3 (test code = <0.01 See_Comment [Au tomated message] 8097087125) The system [employer] generated this result transmit josé antonio reference range : 10*3/?L. The reference range was not used to interpret this result as normal/abnormal . NRBC/100 WBC (test code See_Comment [Au tomated message] = 6571101024) The system [facility] generated this result transmit josé antonio reference range : 0.0 - 10.0 /100 WBC s. The reference r fernando was not used to interpret this result as normal/abnormal . IPF % (test code = 8982454628) Lab Interpretation (test Abnormal code = 76515-5) [facility] CenterURINALYSIS2021-01-25 19:08:00 Test Item Value Reference Range Interpretation Comments APPEARANCE (test code = Clear Clear 3700816331) COLOR (test code = Yellow Yellow 4035971288) PH (test code = 4.8-8.0 3181236013) SP GRAVITY (test code = 1.003-1.030 2332962698) GLU U QUAL (test code = Normal Normal 5540713845) BLOOD (test code = 1+ Negative A 5728935213) KETONES (test code = Negative Negative 1448777832) PROTEIN (test code = 100 mg/dL Negative A 2887-8) UROBILIN (test code = 2.0 mg/dL Normal A 8019521657) BILIRUBIN (test code = Negative Negative 7098017419) NITRITE (test code = Negative Negative 0815536132) LEUK JOHAN (test code = Negative Negative 1580167606) RBC/HPF (test code = See_Comment H [Autom ated message] 3349650264) The system [employer] generated this result transmit josé antonio reference range : 0 - 3 HPF. The refe rence range was not u sed to interpret th is result as normal/abnormal . WBC/HPF (test code = See_Comment [Autom ated message] 8495937551) The system [employer] generated this result transmit josé antonio reference range : 0 - 5 HPF. The refe rence range was not u sed to interpret th is result as normal/abnormal . BACTERIA (test code = Negative Negative 7816055259) MUCOUS (test code = Slight Negative LPF A 4919135891) SQ EPITH (test code = <1 See_Comment [Auto mated message] 9741574316) The system [employer] generated this result transmit josé antonio reference range : <=2 HPF. The refere nce range was not u sed to interpret th is result as normal/abnormal . HYAL CAST (test code = See_Comment H [Aut omated message] 4689131489) The system [employer] generated this result transmit josé antonio reference range : <=2 LPF. The refere nce range was not u sed to interpret th is result as normal/abnormal . ASCORBIC ACID (test code Negative = 3591365695) Lab Interpretation (test Abnormal code = 51697-8) [facility] CenterURINE DRUG (LCMSMS) - OPIATES [id number] 18:28:00 Test Item Value Reference Range Interpretation Comments Morphine-Interpretatio Negative Negative n (test code = 5175257696) Codeine-Interpretation Negative Negative (test code = 8408663173) Hydrocodon-LCMS (test 1009 ng/mL <50 H code = 0971209960) Hydrocodon-Creatinine 1668 ng/mg Normalized (test code = 6506865807) Hydrocodon-Interpretat Positive Negative A ion (test code = 5810660273) Hydromorph-LCMS (test 289 ng/mL <50 H code = 9504091343) Hydromorp-Creatinine 478 ng/mg Normalized (test code = 0295916969) Hydromorph-Interpretat Positive Negative A ion (test code = 3882828819) Norhydrocod-LCMS 178 ng/mL <50 H (test code = 6720386957) Norhydrocod-Creatinine 294 ng/mg Normalized (test code = 0162264441) Norhydrocod-Interpreta Positive Negative A tion (test code = 1972355290) Oxycodone-Interpretati Negative Negative on (test code = 0401063364) Oxymorph-Interpretatio Negative Negative n (test code = 5792784396) Noroxycod-Interpretati Negative Negative on (test code = 4308964718) 6-KATIE(Heroin)-Interpre Negative Negative tation (test code = 4683895372) CREAT U (test code = 60.5 mg/dL 0626376146) HAVEN (test code = HAVEN) Test developed and characteristics determined by [facility] Laboratory Services. Lab Interpretation Abnormal (test code = 08232-2) [facility] (LCMSMS) - SYNTHETIC OPIATES PANEL 2020-07-17 18:26:00 Test Item Value Reference Range Interpretation Comments Tramadol-LCMS (test 6618 ng/mL <50 H code = 6916497577) Tramadol-Creatinine 44489 ng/mg Normalized (test code = 7019943131) Tramadol-Interpretatio Positive Negative A n (test code = 7376154821) Propoxyph-Interpretati Negative Negative on (test code = 2358854180) Normeperid-Interpretat Negative Negative ion (test code = 9383004180) Meperidine-Interpretat Negative Negative ion (test code = 5775386610) Methadone-Interpretati Negative Negative on (test code = 6767588769) EDDP-Interpretation Negative Negative (test code = 5415259065) CREAT U (test code = 60.5 mg/dL 2985465599) Norfentan-Interpretati Negative Negative on (test code = 9823308412) Fentanyl-Interpretatio Negative Negative n (test code = 0935980624) Buprenorph-Interpretat Negative Negative ion (test code = 6743049945) Norbupren-Interpretati Negative Negative on (test code = 0333572163) Carisopro-Interpretati Negative Negative on (test code = 2729627006) Meprobamat-Interpretat Negative Negative ion (test code = 7803096002) HAVEN (test code = HAVEN) Test developed and characteristics determined by [facility] Laboratory Services. Lab Interpretation Abnormal (test code = 76025-2) [facility] CULTURE [id number] 15:23:00 Test Item Value Reference Range Interpretation Comments Blood Culture-Aerobic Culture positive. No growth AA P revious (test code = 03789-1) See Blood prelim inary Culture Workup verified resu lt for additional was Culture I n information. Progress on 07/12/2020 at 22 01 CSTPrevious preliminary verified result was No growth a t 24 hours on 07/13/2020 at 19 01 TRACK OILER Blood No organisms No growth Previous Culture-Anaerobic isolated preliminar y (test code = 20684-6) verifi ed result was Culture In Progress on 07/12/2020 at 22 01 CSTPrevious preliminary verified result was No growth a t 24 hours on 07/14/2020 at 04 44 TRACK OILER Lab Interpretation Abnormal (test code = 26123-4) [facility] CULTURE [id number] 15:19:00 Test Item Value Reference Range Interpretation Comments Blood Culture-Aerobic Culture positive. No growth AA P revious (test code = 55619-2) See Blood prelim inary Culture Workup verified resu lt for additional was Culture I n information. Progress on 07/12/2020 at 21 02 TRACK OILER Blood No organisms No growth Previous Culture-Anaerobic isolated preliminar y (test code = 20957-7) verifi ed result was Culture In Progress on 07/14/2020 at 04 43 TRACK OILER Lab Interpretation Abnormal (test code = 53952-1) [facility] CenterLAB ONLY COVID [id number] 14:23:00COVID DMT InterpretationInterpretation/Recommendations: Molecular NAAT Tests for Active Infection with the SARS-CoV-2 Virus: This result indicates for a second time that the patient has been infected with the SARS-CoV-2 virus that causes COVID-19 illness. The patient should be considered infectious and able to transmit the virus within the first 10 days after symptom onset in imru-we-lkcxwdoa illnessand within the first 20 days after [...] COVID-19 testing the patient has had at [facility], including molecular NAAT testing (more commonly known as PCR testing and Rapid ID Now testing) and antibody testing. It does not take into account any testing that a patient has had outside of the [facility] medical record.[facility] LABORATORY SERVICESCOVID XzuwpjmKCKA-DkT-0 Rapid ID NOW (no units) ? ? Date ?Value ? 07/12/2020 ? Positive (A) ? ? ? 06/21/2020 ? Positive (A) ? [facility] LABORATORY SERVICESUnH[facility]landPOCT GLUCOSE (AUTOMATED)2020-07-17 13:56:00 Test Item Value Reference Range Interpretation Comments POCT GLU (test code = 4024671939) 154 mg/dL 70-110 H Lab Interpretation (test code = Abnormal 91972-9) [facility] METABOLIC PANEL (NA, K, CL, CO2, GLUCOSE, BUN, CREATININE, CA)2020-07-17 11:10:00 Test Item Value Reference Range Interpretation Comments NA (test code = 138 mmol/L 135-145 9836215549) K (test code = 3.9 mmol/L 3.5-5 2667262209) CL (test code = 108 mmol/L 98-108 6554004662) CO2 TOTAL (test code = 25 mmol/L 23-31 2787358597) AGAP (test code = 2-16 8500179722) BUN (test code = 15 mg/dL 7-23 0469044864) GLUCOSE (test code = 119 mg/dL 70-110 H 9774031937) CREATININE (test code = 0.76 mg/dL 0.6-1.25 8635943408) CALCIUM (test code = 7.7 mg/dL 8.6-10.6 L 2093699516) eGFR Calculation mL/min/1.73m2 (Non-) (test code = 3152809712) eGFR Calculation mL/min/1.73m2 () (test code = 3440298447) HAVEN (test code = HAVEN) Association of [...] tests). Lab Interpretation Abnormal (test code = 72393-7) [facility] WITHOUT [id number] 10:45:00 Test Item Value Reference Range Interpretation Comments WBC (test code = 6690-2) See_Comment [A utomated message] The system [employer] generated this result transmit josé antonio reference range : 4.20 - 10.70 10*3/?L. The reference range was not used to interpret this result as normal/abnormal . RBC (test code = 789-8) See_Comment L [Au tomated message] The system [employer] generated this result transmit josé antonio reference [...] 777-3) See_Comment [Au tomated message] The system [employer] generated this result transmit josé antonio reference range : 150 - 328 10*3/?L. The reference range was not used to interpret this result as normal/abnormal . MPV (test code = 10.5 fL 9.8-13 72933-9) RDW-CV (test code = 17.1 % 12.1-15.4 H 788-0) RDW-SD (test code = 47.3 fL 38.5-51.6 14994-2) NRBC x10^3 (test code = <0.01 See_Comment [Au tomated message] 5332388177) The system [employer] generated this result transmit josé antonio reference range : 10*3/?L. The reference range was not used to interpret this result as normal/abnormal . NRBC/100 WBC (test code See_Comment [Au tomated message] = 1528281342) The system [employer] generated this result transmit josé antonio reference range : 0.0 - 10.0 /100 WBC s. The reference r fernando was not used to interpret this result as normal/abnormal . IPF % (test code = 0801661988) Lab Interpretation (test Abnormal code = 14444-3) [facility] CenterLa[facility] Acid Whole [id number] 10:24:00 Test Item Value Reference Range Interpretation Comments LACTIC ACID (test code = 0.95 mmol/L 9397998738) [facility] METABOLIC PANEL (NA, K, CL, CO2, GLUCOSE, BUN, CREATININE, CA)2020-07-16 11:37:00 Test Item Value Reference Range Interpretation Comments NA (test code = 140 mmol/L 135-145 9522606924) K (test code = 4.1 mmol/L 3.5-5 6962864667) CL (test code = 109 mmol/L 98-108 H 2288512454) CO2 TOTAL (test code = 23 mmol/L 23-31 9616220022) AGAP (test code = 2-16 8544996250) BUN (test code = 25 mg/dL 7-23 H 9480582549) GLUCOSE (test code = 113 mg/dL 70-110 H 6789415451) CREATININE (test code = 0.95 mg/dL 0.6-1.25 5867022450) CALCIUM (test code = 7.8 mg/dL 8.6-10.6 L 5556964648) eGFR Calculation mL/min/1.73m2 (Non-) (test code = 7750358718) eGFR Calculation mL/min/1.73m2 () (test code = 4807874289) HAVEN (test code = HAVEN) Association of [...] tests). Lab Interpretation Abnormal (test code = 93698-9) [facility] CenterD-[id number] 19:54:00 Test Item Value Reference Interpretation Comments Range D-DIMER (test code = See_Comment H [Autom ated 1436867286) message] The system which generated this result [...] diagnosis. Lab Interpretation Abnormal (test code = 37775-9) [facility] CenterFECAL [id number] 17:25:00 Test Item Value Reference Range Interpretation Comments Fecal Leukocytes (test code = Positive Negative A 4386653483) Lab Interpretation (test code = Abnormal 09675-9) [facility] CenterACTIV[facility] PARTIAL THRMPLAS [id number] 09:07:00 Test Item Value Reference Range Interpretation Comments APTT Patient (test code = See_Comment [ Automated message] 3173-2) The system [employer] generated this result transmitted ref erence range: 26 - 36 Seconds. The re ference range was not u sed to interpret this result as normal/abnor mal. Lab Interpretation (test Normal code = 32362-5) [facility] CenterACTIV[facility] PARTIAL THRMPLAS [id number] 01:26:00 Test Item Value Reference Range Interpretation Comments APTT Patient (test code See_Comment H [Au tomated message] = 3173-2) The system [employer] generated this result transmitted ref erence range: 26 - 36 Seconds. The reference range was not used to int erpret this result as normal/abnormal . Lab Interpretation (test Abnormal code = 45377-3) [facility] CenterMICROALBUMIN [id number] 20:21:00 Test Item Value Reference Interpretation Comments Range CREAT U (test code 60.5 mg/dL = 3313550679) MICROALB U (test 260 ug/mL 0-45 H code = 83917-9) MICROAL/CR (test See_Comment H [Automated code = 9318-7) message] The system which generated this result transmitted reference range: 0 - 30 mg/g of creatinine. The reference range was not used to interpret this result as normal/abnormal . HAVEN (test code = Normal: <30 mg/g HAVEN) creatinineMicroalbuminu yosef: 30 - 299 mg/g creatinineClinical albuminuria: > 300 mg/g creatinine Lab Interpretation Abnormal (test code = 12262-7) [facility] CenterACT[facility] THRM[facility] [id number] 18:22:00 Test Item Value Reference Range Interpretation Comments APTT Patient (test code See_Comment H [Au tomated message] = 3173-2) The system [employer] generated this result transmitted ref erence range: 26 - 36 Seconds. The reference range was not used to int erpret this result as normal/abnormal . Lab Interpretation (test Abnormal code = 08440-3) [facility] CenterGRAM NEGATIVE BLOOD PATHOGENS DNA [id number] 13:17:00 Test Item Value Reference Range Interpretation Comments Blood Pathogens by No organisms included in DNA Comment (test the Blood DNA Probe test code = 13296-9) panel were detected. Further identification workup to be performed by culture testing methods. HAVEN (test code = See blood culture result HAVEN) for additional information. ?Testing included eight identification and six resistance marker targets. [facility] CenterACT[facility] THRM[facility] [id number] 12:58:00 Test Item Value Reference Range Interpretation Comments APTT Patient (test code See_Comment H [Au tomated message] = 3173-2) The system [employer] generated this result transmitted ref erence range: 26 - 36 Seconds. The reference range was not used to int erpret this result as normal/abnormal . Lab Interpretation (test Abnormal code = 02679-8) [facility] (NA, K, CL, CO2, GLUCOSE, BUN, CREATININE, CA)2020-07-14 12:47:00 Test Item Value Reference Range Interpretation Comments NA (test code = 139 mmol/L 135-145 9630595790) K (test code = 3.8 mmol/L 3.5-5 Slight 5515173976) hemolysis CL (test code = 110 mmol/L 98-108 H 8614756649) CO2 TOTAL (test code 20 mmol/L 23-31 L = 7091304124) AGAP (test code = 2-16 4164858727) BUN (test code = 41 mg/dL 7-23 H Slight 5379102999) hemolysis GLUCOSE (test code = 110 mg/dL 70-110 5290416427) CREATININE (test code 1.63 mg/dL 0.6-1.25 H = 0231001152) CALCIUM (test code = 7.8 mg/dL 8.6-10.6 L 5944886353) eGFR Calculation mL/min/1.73m2 (Non-) (test code = 2336370098) eGFR Calculation mL/min/1.73m2 () (test code = 4053076660) HAVEN (test code = HAVEN) Association of [...] tests). Lab Interpretation Abnormal (test code = 26062-5) [facility] CenterMagnesium [id number] 12:47:00 Test Item Value Reference Range Interpretation Comments MAGNESIUM (test code = 0659190583) 2.1 mg/dL 1.7-2.4 Lab Interpretation (test code = Normal 03480-3) [facility] CenterGALV/CLC ONLY - URINE DRUG (IMMUNOASSAY) - 4 ER [id number] 06:31:00 Test Item Value Reference Range Interpretation Comments AMPHET (test code = Negative Negative 4891855240) Cocaine Metabolite (test Negative Negative code = 8847374844) OPIATES (test code = Presumptive Positive Negative A 4210879083) THC (test code = Negative Negative 8755607842) HAVEN (test code = HAVEN) Urine Drug Cutoff Ranges Amphetamine: ? 1,000 ng/mLCocaine: ? 150 ng/mLOpiates: ? 300 ng/mLCannabinoids: ?50 ng/mL The results are to be used only for medical (i.e., treatment) purposes. Unconfirmed screening results must not be used for non-medical purposes (e.g., employment testing, legal testing). Lab Interpretation (test Abnormal code = 29870-2) [facility] CenterACTIVATED PARTIAL THRMPLAS [id number] 05:33:00 Test Item Value Reference Range Interpretation Comments APTT Patient (test code = See_Comment [ Automated message] 3173-2) The system [employer] generated this result transmitted ref erence range: 26 - 36 Seconds. The re ference range was not u sed to interpret this result as normal/abnor mal. Lab Interpretation (test Normal code = 22513-2) [facility] (NA, K, CL, CO2, GLUCOSE, BUN, CREATININE, CA)2020-07-14 05:26:00 Test Item Value Reference Range Interpretation Comments NA (test code = 135 mmol/L 135-145 1476967202) K (test code = 3.8 mmol/L 3.5-5 8063455492) CL (test code = 107 mmol/L 98-108 4289457905) CO2 TOTAL (test code = 19 mmol/L 23-31 L 7121588704) AGAP (test code = 2-16 1748667663) BUN (test code = 35 mg/dL 7-23 H 4910417069) GLUCOSE (test code = 131 mg/dL 70-110 H 6317825221) CREATININE (test code = 1.47 mg/dL 0.6-1.25 H 7812018880) CALCIUM (test code = 8.0 mg/dL 8.6-10.6 L 1406435095) eGFR Calculation mL/min/1.73m2 (Non-) (test code = 9140771867) eGFR Calculation mL/min/1.73m2 () (test code = 2981993382) HAVEN (test code = HAVEN) Association of [...] tests). Lab Interpretation Abnormal (test code = 11236-7) [facility] CenterMAGNESIUM2021-01-22 05:26:00 Test Item Value Reference Range Interpretation Comments MAGNESIUM (test code = 6731891627) 1.9 mg/dL 1.7-2.4 Lab Interpretation (test code = Normal 37905-7) [facility] CenterOSMOLALITY [id number] 02:03:00 Test Item Value Reference Range Interpretation Comments OSMO U (test code = See_Comment [Automa josé antonio message] 8482293940) The system [employer] generated this result transmitted ref erence range: 50-1,100 mOsm/kg. The re ference range was not u sed to interpret this result as normal/abnor mal. Lab Interpretation (test Normal code = 47264-7) [facility] CenterCREATININE, URINE [id number] 00:57:00 Test Item Value Reference Range Interpretation Comments CREAT U (test code = 2171300292) 63.1 mg/dL [facility] CenterSODIUM, URINE [id number] 00:57:00 Test Item Value Reference Range Interpretation Comments NA URINE (test code = 5460497551) 97 mmol/L [facility] CenterUREA NITROGEN, URINE [id number] 00:57:00 Test Item Value Reference Range Interpretation Comments UREA N UR (test code = 0086853406) 679 mg/dL [facility] CenterURINALYSIS2021-01-22 00:54:00 Test Item Value Reference Range Interpretation Comments APPEARANCE (test code = Hazy Clear A 8335060704) COLOR (test code = Yellow Yellow 9762758942) PH (test code = 4.8-8.0 4729532775) SP GRAVITY (test code = 1.003-1.030 9256719400) GLU U QUAL (test code = Normal Normal 4189591700) BLOOD (test code = 2+ Negative A 1077669435) KETONES (test code = Negative Negative 4666011322) PROTEIN (test code = 30 mg/dL Negative A 2887-8) UROBILIN (test code = Normal Normal 1924537116) BILIRUBIN (test code = Negative Negative 1477766989) NITRITE (test code = Negative Negative 8210256913) LEUK JOHAN (test code = Negative Negative 9105562806) RBC/HPF (test code = See_Comment H [Autom ated message] 3531600787) The system [employer] generated this result transmitted ref erence range: 0 - 3 HP F. The reference range was not used to int erpret this result as normal/abnormal . WBC/HPF (test code = See_Comment [Autom ated message] 6829533470) The system [employer] generated this result transmitted ref erence range: 0 - 5 HP F. The reference range was not used to int erpret this result as normal/abnormal . BACTERIA (test code = Negative Negative 8395932145) MUCOUS (test code = Slight Negative LPF A 8656222403) Lab Interpretation (test Abnormal code = 23666-1) [facility] CenterPOCT GLUCOSE (AUTOMATED)2020-07-13 22:42:00 Test Item Value Reference Range Interpretation Comments POCT GLU (test code = 2593718358) 169 mg/dL 70-110 H Lab Interpretation (test code = Abnormal 63685-8) [facility] CenterC-REACTIVE [id number] 19:14:00 Test Item Value Reference Range Interpretation Comments CRP (test code = 5128858897) 10.9 mg/dL <0.8 H Lab Interpretation (test code = Abnormal 16417-5) [facility] CenterTroponin [id number] 19:12:00 Test Item Value Reference Range Interpretation Comments TROPONIN I (test 0.153 ng/mL See_Comment H [Automated code = 6280035430) message] The system which generated this result [...] ? Lab Interpretation Abnormal (test code = 73178-8) [facility] CenterACTIVATED PARTIAL THRMPLAS [id number] 18:46:00 Test Item Value Reference Range Interpretation Comments APTT Patient (test code = See_Comment [ Automated message] 3173-2) The system [employer] generated this result transmitted ref erence range: 26 - 36 Seconds. The re ference range was not u sed to interpret this result as normal/abnor mal. Lab Interpretation (test Normal code = 24161-3) [facility] CenterOSMOLALITY, SERUM OR [id number] 17:31:00 Test Item Value Reference Range Interpretation Comments OSMOLALITY (test code = See_Comment [Au tomated message] 3995359677) The system [employer] generated this result transmitted ref erence range: 278 - 30 5 mOsm/kg. The re ference range was not u sed to interpret this result as normal/abnor mal. Lab Interpretation (test Normal code = 30116-7) [facility] CenterPROCALCITONIN2021-01-21 15:12:00 Test Item Value Reference Range Interpretation Comments Procalcitonin (test 5.12 ng/mL <0.07 H code = 6088057629) HAVEN (test code = HAVEN) INTERPRETATION OF [...] lung abscess/empyema. For further information please refer to:[email or web address] Lab Interpretation Abnormal (test code = 14977-4) [facility] CenterFERRITIN [id number] 14:16:00 Test Item Value Reference Range Interpretation Comments FERRITIN (test code = 42.4 ng/mL 18-464 5017932722) HAVEN (test code = HAVEN) Biotin has been reported to cause a negative bias, interpret results relative to patient's use of biotin. Lab Interpretation (test Normal code = 09287-4) [facility] CenterLipid Panel (Total Cholesterol, Triglycerides, HDL)2020-07-13 13:07:00 Test Item Value Reference Range Interpretation Comments CHOL (test code = 89 mg/dL 120-200 L 6887705315) HDL (test code = 26 mg/dL >40 L 5367925097) HDLC RATIO (test code = See_Comment [Au tomated message] 1472876160) The system [employer] generated this result transmit josé antonio reference range : <=5.0. The refe rence range was not u sed to interpret th is result as normal/abnormal . TRIG (test code = 123 mg/dL 30-170 0485996289) LDL CHOL (test code = 38 mg/dL See_Comment [Auto mated message] 47523-2) The system [employer] generated this result transmit josé antonio reference range : <=160. The refe rence range was not u sed to interpret th is result as normal/abnormal . VLDL (test code = 25 mg/dL 5-60 7493776679) Lab Interpretation (test Abnormal code = 88881-1) [facility] CenterHepatic Function Panel (ALB, T.PRO, BILI T, BU/BC, ALT, AST, ALK PHOS)2020-07-13 13:07:00 Test Item Value Reference Range Interpretation Comments TOTAL BILI (test code = 7694958424) 0.6 mg/dL 0.1-1.1 BILI UNCON (test code = 4547152727) 0.5 mg/dL 0.1-1.1 BILI CONJ (test code = 8072352651) 0.0 mg/dL 0-0.3 T PROTEIN (test code = 1230896085) 5.8 g/dL 6.3-8.2 L ALBUMIN (test code = 1047653476) 3.0 g/dL 3.5-5 L ALK PHOS (test code = 4558418410) 78 U/L 34-122 ALTv (test code = 1742-6) 19 U/L 5-50 AST(SGOT) (test code = 0778366620) 50 U/L 13-40 H Lab Interpretation (test code = Abnormal 21078-0) [facility] CenterTroponin [id number] 10:47:00 Test Item Value Reference Range Interpretation Comments TROPONIN I (test 0.318 ng/mL See_Comment H [Automated code = 6802925572) message] The system which generated this result [...] ? Lab Interpretation Abnormal (test code = 75362-6) [facility] CenterACTIVATED PARTIAL THRMPLAS [id number] 09:52:00 Test Item Value Reference Range Interpretation Comments APTT Patient (test code See_Comment H [Au tomated message] = 3173-2) The system [employer] generated this result transmitted ref erence range: 26 - 36 Seconds. The reference range was not used to int erpret this result as normal/abnormal . Lab Interpretation (test Abnormal code = 50672-0) [facility] CenterD-[id number] 09:52:00 Test Item Value Reference Interpretation Comments Range D-DIMER (test code = See_Comment H [Autom ated 3307381295) message] The system which generated this result [...] diagnosis. Lab Interpretation Abnormal (test code = 95140-6) [facility] CenterLACTATE [id number] 09:44:00 Test Item Value Reference Range Interpretation Comments LDH (test code = 3888389938) 622 U/L 300-600 H Lab Interpretation (test code = Abnormal 79857-5) [facility] CenterCritical [id number] 04:45:00Donald Wilson EMNP ? ? 07/13/2020 ?5:10 [...] from another provider in my specialty: no ?[facility] CenterAC ABG + LACTIC [id number] 02:42:00 Test Item Value Reference Range Interpretation Comments PH (test code = 2) 7.35-7.45 PCO2 (test code = See_Comment [Automat ed 5959209084) message] The sy stem which generated this result transmitted reference range : 35 - 45 mmHg. The reference range was not used to interpret this result as normal/abnormal . PO2 (test code = See_Comment H [Automated 5288163806) message] The sy stem which generated this result transmitted reference range : 80 - 100 mmHg. The reference range was not used to interpret this result as normal/abnormal . HCO3 (test code = See_Comment L [Automate d 3291419329) message] The sy stem which generated this result transmitted reference range : 22 - 26 mEq/L. The reference range was not used to interpret this result as normal/abnormal . BE (test code = See_Comment L [Automated 1289367492) message] The sy stem which generated this result transmitted reference range : -3.0 - 3.0 mEq/ L. The reference r fernando was not used to interpret this result as normal/abnormal . LACTIC ACID (test code 1.25 mmol/L = 3578747660) Lab Interpretation Abnormal (test code = 59442-4) [facility] CenterXR CHEST 1 [id number] 01:10:12Impression: No acute abnormalities evident. RL: 460 [...] - 07/12/2020 7:11 PM CSTOrdering Physician: DONALD WILSONHistory: Short of breathTechnique: Chest, single viewComparison: NoneFindings: Patchy parahilar airspace disease is present bilaterally, with no areas ofsignificant consolidation. The lungs are otherwise clear. No pleuraleffusions are evident. Heart size is normal. The superior mediastinalsilhouette is unremarkable for age and projection. There are degenerativechanges of the shoulders and spine. No acute bony abnormalities areevident.IMPRESSIONImpression:No acute abnormalities evident.RL: 460[facility] WITH [id number] 00:22:00 Test Item Value Reference Range Interpretation [...] RDW-SD (test code = 47.8 fL 38.5-51.6 90581-6) RDW-CV (test code = 17.1 % 12.1-15.4 H 788-0) PLT (test code = See_Comment L [Automated 777-3) message] The sy stem which generated this result transmitted reference range : 150 - 328 10*3/ ?L. The reference r fernando was not used to interpret this result as normal/abnormal . MPV (test code = 9.0 fL 9.8-13 L 40453-8) NRBC/100 WBC (test See_Comment [Automat ed code = 6295898489) message] The system which generated this result transmitted reference range : 0.0 - 10.0 /100 WBCs. The refer ence range was not u sed to interpret th is result as normal/abnormal . NRBC x10^3 (test code <0.01 See_Comment [Auto mated = 2915630009) message] The s ystem which generated this result transmitted reference range : 10*3/?L. The reference range was not used to interpret this result as normal/abnormal . GRAN MAT (NEUT) % 72.3 % (test code = 770-8) IMM GRAN % (test code 1.20 % = 3218129221) LYMPH % (test code = 15.7 % 736-9) MONO % (test code = 10.0 % 5905-5) EOS % (test code = 0.0 % 713-8) BASO % (test code = 0.8 % 706-2) GRAN MAT x10^3(ANC) 1.80 10*3/uL 1.99-6.95 L (test code = 3186289352) IMM GRAN x10^3 (test 0.03 10*3/uL 0-0.06 code = 0887006316) LYMPH x10^3 (test code 0.39 10*3/uL 1.09-3.23 L = 731-0) MONO x10^3 (test code 0.25 10*3/uL 0.36-1.02 L = 742-7) EOS x10^3 (test code = <0.03 0.06-0.53 L 711-2) BASO x10^3 (test code <0.03 0.01-0.09 = 704-7) Lab Interpretation Abnormal (test code = 32910-6) [facility] [id number] 00:13:00 Test Item Value Reference Range Interpretation Comments TROPONIN I (test 0.303 ng/mL See_Comment H [Automated code = 9746598477) message] The system which generated this result [...] ? Lab Interpretation Abnormal (test code = 63104-8) [facility] CenterN-TERMINAL [id number] 00:10:00 Test Item Value Reference Range Interpretation Comments NT-proBNP (test code 3030 pg/mL See_Comment H [Autom ated = 1814892609) message] The system which generated this result transmitted reference range : <=125. The reference range was not used to interpret this result as normal/abnormal . HAVEN (test code = HAVEN) Biotin has been reported to cause a negative bias, interpret results relative to patient's use of biotin. Lab Interpretation Abnormal (test code = 36907-5) [facility] CenterACTIVATED PARTIAL THRMPLAS [id number] 00:04:00 Test Item Value Reference Range Interpretation Comments APTT Patient (test See_Comment H [Automat ed code = 3173-2) message] The system which generated this result transmitted reference range : 23 - 38 Seconds . The reference range was not used to interpr et this result as normal/abnormal . HAVEN (test code = HAVEN) The [facility] patient population mean normal value for aPTT is 30 seconds. Lab Interpretation Abnormal (test code = 54514-4) [facility] CenterCOMP. METABOLIC PANEL (42997)2020-07-13 00:02:00 Test Item Value Reference Range Interpretation Comments NA (test code = 137 mmol/L 135-145 0121703515) K (test code = 4.0 mmol/L 3.5-5 7752824888) CL (test code = 105 mmol/L 98-108 3199433904) CO2 TOTAL (test code = 25 mmol/L 23-31 5693358246) AGAP (test code = 2-16 9449249463) BUN (test code = 28 mg/dL 7-23 H 3305796227) GLUCOSE (test code = 118 mg/dL 70-110 H 8424773172) CREATININE (test code = 1.69 mg/dL 0.6-1.25 H 4103402595) TOTAL BILI (test code = 0.8 mg/dL 0.1-1.0 8939957741) CALCIUM (test code = 8.1 mg/dL 8.6-10.6 L 6160317170) T PROTEIN (test code = 7.0 g/dL 6.3-8.2 8283269568) ALBUMIN (test code = 3.6 g/dL 3.5-5 0270174648) ALK PHOS (test code = 66 U/L 34-122 3368063734) ALTv (test code = 14 U/L 5-50 2-6) AST(SGOT) (test code = 39 U/L 13-40 5669811455) eGFR Calculation mL/min/1.73m2 (Non-) (test code = 6111957563) eGFR Calculation mL/min/1.73m2 () (test code = 7784910605) HAVEN (test code = HAVEN) Association of [...] tests). Lab Interpretation Abnormal (test code = 26951-6) [facility] CenterPROTHROMBIN TIME / [id number] 00:01:00 Test Item Value Reference Range Interpretation Comments PROTIME PATIENT (test See_Comment H [Auto mated message] code = 5964-2) The system [employer] generated this result transmitted ref erence range: 12.0 - 1 4.7 Seconds. The reference range was not used to int erpret this result as normal/abnormal . INR (test code = 6301-6) Nor mal INR <1.1; Warfarin Therap eutic range 2.0 to 3. 0 or 2.5 to 3.5, dep ending upon the indica tions. Lab Interpretation (test Abnormal code = 55132-7) [facility] CenterCOVID-19 (ID NOW RAPID TESTING)2020-07-12 23:58:00 Test Item Value Reference Range Interpretation Comments SARS-CoV-2 Rapid ID NOW Positive Not Detected A (test code = 01259-3) HAVEN (test code = HAVEN) ID NOW COVID-19 Assay is an isothermal nucleic acid amplification test intended for the qualitative detection of nucleic acid from SARS-CoV-2 viral RNA in nasopharyngeal ([employer]) specimens. It is used under Emergency Use [...] indicated. Lab Interpretation Abnormal (test code = 70087-9) [facility] CenterLactic Acid Whole [id number] 23:38:00 Test Item Value Reference Range Interpretation Comments LACTIC ACID (test code = 1.72 mmol/L 7190331104) [facility] CenterAMIODARONE & [id number] 02:24:00 Test Item Value Reference Range Interpretation [...] Test developed and characteristics determined by [facility]. S ee Compliance Stat ement B: [employer]/ CS N-WOODY-AMIO (test code 0.6 ug/mL Perfor med By: CRYSTAL = 6774-4) [address] [id number] Director: Allyson Flynn MD Lab Interpretation Abnormal (test code = 82223-1) [facility] CenterVancomycin Trough Level - Draw no more than 60 minutes before the 0600 dose.2020-06-27 14:09:00 Test Item Value Reference Range Interpretation Comments VANCO TROUGH (test code 17.0 ug/mL 10-20 = 9558437438) HAVEN (test code = HAVEN) Toxic Range: ?>20 ug/mL 15-20 ug/mL is recommended for severe infection or when Vancomycin KO is greater than or equal to 2. Lab Interpretation (test Normal code = 90112-8) [facility] CenterBASI METABOLIC PANEL (NA, K, CL, CO2, GLUCOSE, BUN, CREATININE, CA)2020-06-27 14:04:00 Test Item Value Reference Range Interpretation Comments NA (test code = 139 mmol/L 135-145 2483318878) K (test code = 4.7 mmol/L 3.5-5 7399944271) CL (test code = 107 mmol/L 98-108 4293868156) CO2 TOTAL (test code = 25 mmol/L 23-31 1680464160) AGAP (test code = 2-16 9602894193) BUN (test code = 16 mg/dL 7-23 2781219568) GLUCOSE (test code = 99 mg/dL 70-110 9429964745) CREATININE (test code = 0.88 mg/dL 0.6-1.25 4460256451) CALCIUM (test code = 7.9 mg/dL 8.6-10.6 L 8283559997) eGFR Calculation mL/min/1.73m2 (Non-) (test code = 5600679616) eGFR Calculation mL/min/1.73m2 () (test code = 7686452435) HAVEN (test code = HAVEN) Association of [...] tests). Lab Interpretation Abnormal (test code = 18720-7) [facility] [id number] 12:36:00 Test Item Value Reference Range Interpretation [...] RDW-SD (test code = 43.5 fL 38.5-51.6 37703-5) RDW-CV (test code = 15.1 % 12.1-15.4 788-0) PLT (test code = See_Comment [Automated 777-3) message] The sy stem which generated this result transmitted reference range : 150 - 328 10*3/ ?L. The reference r fernando was not used to interpret this result as normal/abnormal . MPV (test code = 9.2 fL 9.8-13 L 11816-0) NRBC/100 WBC (test See_Comment [Automat ed code = 6519241232) message] The system which generated this result transmitted reference range : 0.0 - 10.0 /100 WBCs. The refer ence range was not u sed to interpret th is result as normal/abnormal . NRBC x10^3 (test code <0.01 See_Comment [Auto mated = 8621751633) message] The s ystem which generated this result transmitted reference range : 10*3/?L. The reference range was not used to interpret this result as normal/abnormal . GRAN MAT (NEUT) % 71.7 % (test code = 770-8) IMM GRAN % (test code 1.20 % = 6435109670) LYMPH % (test code = 14.3 % 736-9) MONO % (test code = 7.2 % 5905-5) EOS % (test code = 5.3 % 713-8) BASO % (test code = 0.3 % 706-2) GRAN MAT x10^3(ANC) 2.30 10*3/uL 1.99-6.95 (test code = 9559843845) IMM GRAN x10^3 (test 0.04 10*3/uL 0-0.06 code = 2775589574) LYMPH x10^3 (test code 0.46 10*3/uL 1.09-3.23 L = 731-0) MONO x10^3 (test code 0.23 10*3/uL 0.36-1.02 L = 742-7) EOS x10^3 (test code = 0.17 10*3/uL 0.06-0.53 711-2) BASO x10^3 (test code <0.03 0.01-0.09 = 704-7) Lab Interpretation Abnormal (test code = 39878-1) [facility] CenterBLOOD CULTURE [id number] 21:01:00 Test Item Value Reference Range Interpretation Comments Blood Culture-Aerobic No organisms No growth Previo us (test code = 87625-8) isolated prelim inary verified result was Culture In Progress on 06/21/2020 at 1801 CSTPreviou s preliminary verified result was No growth a t 24 hours on 06/22/2020 at 1501 CSTPreviou s preliminary verified result was No growth a t 48 hours on 06/23/2020 at 150 1 CSTPrevious preliminary verified result was No growth a t 72 hours on 06/24/2020 at 150 1 TRACK OILER Blood No organisms No growth Previous Culture-Anaerobic isolated preliminar y (test code = 03914-1) verifi ed result was Culture In Progress on 06/21/2020 at 1801 CSTPreviou s preliminary verified result was No growth a t 24 hours on 06/22/2020 at 1501 CSTPreviou s preliminary verified result was No growth a t 48 hours on 06/23/2020 at 150 1 CSTPrevious preliminary verified result was No growth a t 72 hours on 06/24/2020 at 150 1 TRACK 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 Lab Interpretation Normal (test code = 12943-8) [facility] CenterBLOOD CULTURE [id number] 21:01:00 Test Item Value Reference Range Interpretation Comments Blood Culture-Aerobic No organisms No growth Previo us (test code = 90966-0) isolated prelim inary verified result was Culture In Progress on 06/21/2020 at 1801 CSTPreviou s preliminary verified result was No growth a t 24 hours on 06/22/2020 at 1501 CSTPreviou s preliminary verified result was No growth a t 48 hours on 06/23/2020 at 150 1 CSTPrevious preliminary verified result was No growth a t 72 hours on 06/24/2020 at 150 1 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 Blood No organisms No growth Previous Culture-Anaerobic isolated preliminar y (test code = 27305-2) verifi ed result was Culture In Progress on 06/21/2020 at 1801 CSTPreviou s preliminary verified result was No growth a t 24 hours on 06/22/2020 at 1501 CSTPreviou s preliminary verified result was No growth a t 48 hours on 06/23/2020 at 150 1 CSTPrevious preliminary verified result was No growth a t 72 hours on 06/24/2020 at 150 1 TRACK 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 Lab Interpretation (test Normal code = 39129-1) [facility] (NA, K, CL, CO2, GLUCOSE, BUN, CREATININE, CA)2020-06-26 14:01:00 Test Item Value Reference Range Interpretation Comments NA (test code = 138 mmol/L 135-145 9996569873) K (test code = 4.6 mmol/L 3.5-5 0447964140) CL (test code = 104 mmol/L 98-108 0363510262) CO2 TOTAL (test code = 23 mmol/L 23-31 8569054795) AGAP (test code = 2-16 1919089250) BUN (test code = 17 mg/dL 7-23 2422891398) GLUCOSE (test code = 109 mg/dL 70-110 9983597923) CREATININE (test code = 1.00 mg/dL 0.6-1.25 0247959923) CALCIUM (test code = 8.4 mg/dL 8.6-10.6 L 1696469853) eGFR Calculation mL/min/1.73m2 (Non-) (test code = 5647503785) eGFR Calculation mL/min/1.73m2 () (test code = 6434707693) HAVEN (test code = HAVEN) Association of [...] tests). Lab Interpretation Abnormal (test code = 08614-6) [facility] WITH [id number] 13:33:00 Test Item Value Reference Range Interpretation [...] RDW-SD (test code = 44.3 fL 38.5-51.6 87153-9) RDW-CV (test code = 15.4 % 12.1-15.4 788-0) PLT (test code = See_Comment [Automated 777-3) message] The sy stem which generated this result transmitted reference range : 150 - 328 10*3/ ?L. The reference r fernando was not used to interpret this result as normal/abnormal . MPV (test code = 9.2 fL 9.8-13 L 53689-7) NRBC/100 WBC (test See_Comment [Automat ed code = 8898029222) message] The system which generated this result transmitted reference range : 0.0 - 10.0 /100 WBCs. The refer ence range was not u sed to interpret th is result as normal/abnormal . NRBC x10^3 (test code <0.01 See_Comment [Auto mated = 1289948940) message] The s ystem which generated this result transmitted reference range : 10*3/?L. The reference range was not used to interpret this result as normal/abnormal . GRAN MAT (NEUT) % 66.2 % (test code = 770-8) IMM GRAN % (test code 1.10 % = 5982492970) LYMPH % (test code = 18.7 % 736-9) MONO % (test code = 6.9 % 5905-5) EOS % (test code = 6.6 % 713-8) BASO % (test code = 0.5 % 706-2) GRAN MAT x10^3(ANC) 2.41 10*3/uL 1.99-6.95 (test code = 2785387966) IMM GRAN x10^3 (test 0.04 10*3/uL 0-0.06 code = 5852703146) LYMPH x10^3 (test code 0.68 10*3/uL 1.09-3.23 L = 731-0) MONO x10^3 (test code 0.25 10*3/uL 0.36-1.02 L = 742-7) EOS x10^3 (test code = 0.24 10*3/uL 0.06-0.53 711-2) BASO x10^3 (test code <0.03 0.01-0.09 = 704-7) Lab Interpretation Abnormal (test code = 31331-1) [facility] - Draw no more than 60 minutes before the 1830 dose.2020-06-26 00:47:00 Test Item Value Reference Range Interpretation Comments VANCO TROUGH (test code 21.9 ug/mL 10-20 H = 3984001143) HAVEN (test code = HAVEN) Toxic Range: ?>20 ug/mL 15-20 ug/mL is recommended for severe infection or when Vancomycin KO is greater than or equal to 2. Lab Interpretation (test Abnormal code = 63195-4) [facility] with Wjejubhzzjff5685-60-04 13:19:00 Test Item Value Reference Range Interpretation [...] RDW-SD (test code = 44.4 fL 38.5-51.6 89095-4) RDW-CV (test code = 15.2 % 12.1-15.4 788-0) PLT (test code = See_Comment [Automated 777-3) message] The sy stem which generated this result transmitted reference range : 150 - 328 10*3/ ?L. The reference r fernando was not used to interpret this result as normal/abnormal . MPV (test code = 9.1 fL 9.8-13 L 28317-9) NRBC/100 WBC (test See_Comment [Automat ed code = 3847863391) message] The system which generated this result transmitted reference range : 0.0 - 10.0 /100 WBCs. The refer ence range was not u sed to interpret th is result as normal/abnormal . NRBC x10^3 (test code <0.01 See_Comment [Auto mated = 2527614582) message] The s ystem which generated this result transmitted reference range : 10*3/?L. The reference range was not used to interpret this result as normal/abnormal . GRAN MAT (NEUT) % 62.4 % (test code = 770-8) IMM GRAN % (test code 1.20 % = 1837651710) LYMPH % (test code = 19.6 % 736-9) MONO % (test code = 7.8 % 5905-5) EOS % (test code = 8.7 % 713-8) BASO % (test code = 0.3 % 706-2) GRAN MAT x10^3(ANC) 2.01 10*3/uL 1.99-6.95 (test code = 3291254820) IMM GRAN x10^3 (test 0.04 10*3/uL 0-0.06 code = 1405560430) LYMPH x10^3 (test code 0.63 10*3/uL 1.09-3.23 L = 731-0) MONO x10^3 (test code 0.25 10*3/uL 0.36-1.02 L = 742-7) EOS x10^3 (test code = 0.28 10*3/uL 0.06-0.53 711-2) BASO x10^3 (test code <0.03 0.01-0.09 = 704-7) Lab Interpretation Abnormal (test code = 88982-4) [facility] - Draw immediately prior to the 0630 dose, but, no more than 60 minutes [id number] 13:04:00 Test Item Value Reference Range Interpretation Comments VANCO TROUGH (test code 24.9 ug/mL 10-20 H = 0579629067) HAVEN (test code = HAVEN) Toxic Range: ?>20 ug/mL 15-20 ug/mL is recommended for severe infection or when Vancomycin KO is greater than or equal to 2. Lab Interpretation (test Abnormal code = 67492-2) [facility] (NA, K, CL, CO2, GLUCOSE, BUN, CREATININE, CA)2020-06-25 12:59:00 Test Item Value Reference Range Interpretation Comments NA (test code = 138 mmol/L 135-145 4964373109) K (test code = 4.8 mmol/L 3.5-5 3346098452) CL (test code = 107 mmol/L 98-108 7834413953) CO2 TOTAL (test code = 22 mmol/L 23-31 L 5565196638) AGAP (test code = 2-16 0239815425) BUN (test code = 16 mg/dL 7-23 1453888252) GLUCOSE (test code = 115 mg/dL 70-110 H 2972887431) CREATININE (test code = 0.99 mg/dL 0.6-1.25 3561912694) CALCIUM (test code = 8.6 mg/dL 8.6-10.6 0942729718) eGFR Calculation mL/min/1.73m2 (Non-) (test code = 5026119263) eGFR Calculation mL/min/1.73m2 () (test code = 5590256766) HAVEN (test code = HAVEN) Association of [...] tests). Lab Interpretation Abnormal (test code = 37455-4) [facility] - Draw immediately prior to the 1430 dose, but, no more than 60 minutes [id number] 21:01:00 Test Item Value Reference Range Interpretation Comments VANCO TROUGH (test code 28.8 ug/mL 10-20 H = 9875048222) HAVEN (test code = HAVEN) Toxic Range: ?>20 ug/mL 15-20 ug/mL is recommended for severe infection or when Vancomycin OK is greater than or equal to 2. Lab Interpretation (test Abnormal code = 76458-2) [facility] with [id number] 15:25:00 Test Item Value Reference Range Interpretation [...] RDW-SD (test code = 43.7 fL 38.5-51.6 77882-1) RDW-CV (test code = 15.3 % 12.1-15.4 788-0) PLT (test code = See_Comment [Automated 777-3) message] The sy stem which generated this result transmitted reference range : 150 - 328 10*3/ ?L. The reference r fernando was not used to interpret this result as normal/abnormal . MPV (test code = 8.9 fL 9.8-13 L 71057-1) NRBC/100 WBC (test See_Comment [Automat ed code = 9997875798) message] The system which generated this result transmitted reference range : 0.0 - 10.0 /100 WBCs. The refer ence range was not u sed to interpret th is result as normal/abnormal . NRBC x10^3 (test code <0.01 See_Comment [Auto mated = 4450620462) message] The s ystem which generated this result transmitted reference range : 10*3/?L. The reference range was not used to interpret this result as normal/abnormal . GRAN MAT (NEUT) % 71.4 % (test code = 770-8) IMM GRAN % (test code 1.10 % = 3453641446) LYMPH % (test code = 11.0 % 736-9) MONO % (test code = 8.4 % 5905-5) EOS % (test code = 7.7 % 713-8) BASO % (test code = 0.4 % 706-2) GRAN MAT x10^3(ANC) 1.95 10*3/uL 1.99-6.95 L (test code = 2197570327) IMM GRAN x10^3 (test 0.03 10*3/uL 0-0.06 code = 3194733357) LYMPH x10^3 (test code 0.30 10*3/uL 1.09-3.23 L = 731-0) MONO x10^3 (test code 0.23 10*3/uL 0.36-1.02 L = 742-7) EOS x10^3 (test code = 0.21 10*3/uL 0.06-0.53 711-2) BASO x10^3 (test code <0.03 0.01-0.09 = 704-7) Lab Interpretation Abnormal (test code = 80644-2) [facility] Basic Metabolic Panel (NA, K, CL, CO2, GLUCOSE, BUN, CREATININE, CA)2020-06-24 13:35:00 Test Item Value Reference Range Interpretation Comments NA (test code = 138 mmol/L 135-145 5519686991) K (test code = 4.6 mmol/L 3.5-5 8707625722) CL (test code = 107 mmol/L 98-108 6715390172) CO2 TOTAL (test code = 22 mmol/L 23-31 L 9434282849) AGAP (test code = 2-16 4605850309) BUN (test code = 21 mg/dL 7-23 5993732904) GLUCOSE (test code = 106 mg/dL 70-110 6337716506) CREATININE (test code = 1.10 mg/dL 0.6-1.25 0977233248) CALCIUM (test code = 8.3 mg/dL 8.6-10.6 L 3992741827) eGFR Calculation mL/min/1.73m2 (Non-) (test code = 8054746954) eGFR Calculation mL/min/1.73m2 () (test code = 4411647793) HAVEN (test code = HAVEN) Association of [...] tests). Lab Interpretation Abnormal (test code = 66103-1) [facility] COVID [id number] 23:45:00COVID DMT InterpretationInterpretation/Recommendations: Molecular NAAT Tests for Active Infection with the SARS-CoV-2 Virus: This result indicates that the patient has been infected with the CJRB-BeY-9morbn that causes COVID-19 illness. The patient should be considered infectious and able to transmitthe virus within the first 10 days after symptom onset in wjue-eb-kscpyvhy illness and within the first 20 days [...] COVID-19 testing the patient has had at [facility], including molecular NAAT testing ( more commonly known as PCR testing and Rapid ID Now testing) and antibody testing. It does not take into account any testing that a patient has had outside of the [facility] medical record. [facility] LABORATORYSERVICESCOVID MxcpiqsKGOA-YkY-1 Rapid ID NOW (no units) ? ? Date ? Value ? 06/21/2020 ? Positive (A) ? [facility]ORAT[facility] SERVICESUnH[facility]landVancomycin Trough Level - Draw within 30 minutes prior to 4TH dose.2020-06-23 19:45:00 Test Item Value Reference Range Interpretation Comments VANCO TROUGH (test code 25.0 ug/mL 10-20 H = 4247956901) HAVEN (test code = HAVEN) Toxic Range: ?>20 ug/mL 15-20 ug/mL is recommended for severe infection or when Vancomycin KO is greater than or equal to 2. Lab Interpretation (test Abnormal code = 50152-8) [facility] (NA, K, CL, CO2, GLUCOSE, BUN, CREATININE, CA)2020-06-23 13:04:00 Test Item Value Reference Range Interpretation Comments NA (test code = 138 mmol/L 135-145 7990982752) K (test code = 4.3 mmol/L 3.5-5 3632593312) CL (test code = 106 mmol/L 98-108 6800085662) CO2 TOTAL (test code = 23 mmol/L 23-31 1004899949) AGAP (test code = 2-16 8690511229) BUN (test code = 16 mg/dL 7-23 0854034368) GLUCOSE (test code = 103 mg/dL 70-110 2999158006) CREATININE (test code = 0.98 mg/dL 0.6-1.25 8288334942) CALCIUM (test code = 8.4 mg/dL 8.6-10.6 L 1119700428) eGFR Calculation mL/min/1.73m2 (Non-) (test code = 6529007374) eGFR Calculation mL/min/1.73m2 () (test code = 2740639378) HAVEN (test code = HAVEN) Association of [...] tests). Lab Interpretation Abnormal (test code = 99468-4) [facility] CBC with Qloewqymhpdg1116-15-16 12:30:00 Test Item Value Reference Range Interpretation [...] RDW-SD (test code = 44.4 fL 38.5-51.6 41817-3) RDW-CV (test code = 15.6 % 12.1-15.4 H 788-0) PLT (test code = See_Comment [Automated 777-3) message] The sy stem which generated this result transmitted reference range : 150 - 328 10*3/ ?L. The reference r frenando was not used to interpret this result as normal/abnormal . MPV (test code = 8.9 fL 9.8-13 L 45262-4) NRBC/100 WBC (test See_Comment [Automat ed code = 7380158825) message] The system which generated this result transmitted reference range : 0.0 - 10.0 /100 WBCs. The refer ence range was not u sed to interpret th is result as normal/abnormal . NRBC x10^3 (test code <0.01 See_Comment [Auto mated = 6319007901) message] The s ystem which generated this result transmitted reference range : 10*3/?L. The reference range was not used to interpret this result as normal/abnormal . GRAN MAT (NEUT) % 68.2 % (test code = 770-8) IMM GRAN % (test code 1.00 % = 2744010034) LYMPH % (test code = 17.5 % 736-9) MONO % (test code = 6.7 % 5905-5) EOS % (test code = 6.3 % 713-8) BASO % (test code = 0.3 % 706-2) GRAN MAT x10^3(ANC) 2.15 10*3/uL 1.99-6.95 (test code = 5904649038) IMM GRAN x10^3 (test 0.03 10*3/uL 0-0.06 code = 8272943769) LYMPH x10^3 (test code 0.55 10*3/uL 1.09-3.23 L = 731-0) MONO x10^3 (test code 0.21 10*3/uL 0.36-1.02 L = 742-7) EOS x10^3 (test code = 0.20 10*3/uL 0.06-0.53 711-2) BASO x10^3 (test code <0.03 0.01-0.09 = 704-7) Lab Interpretation Abnormal (test code = 32658-6) [facility] CenterH[facility] [id number] 15:33:00 Test Item Value Reference Range Interpretation Comments HS CRP (test code = 3043393860) 11.80 mg/dL <0.74 H Lab Interpretation (test code = Abnormal 42127-7) [facility] 1 [id number] 14:45:09 Bilateral subtle interstitial abnormality. Findings may [...] congestion versus lymphnodes.Preliminary Report Dictated by Resident: Eliu Galeana, Leobardo Petersen MD., have reviewed this study and agree with theabove report.[facility] CBC with Differential 2020-06-22 12:36:00 Test Item Value Reference Range Interpretation Comments WBC (test code = See_Comment LL [Automated 5790-2) message] The sy stem which generated this result transmitted reference range : 4.20 - 10.70 10*3/?L. The reference range was not used to interpret this result as normal/abnormal . RBC (test code = See_Comment L [Automated 309-8) message] The sy stem which generated this [...] RDW-SD (test code = 44.2 fL 38.5-51.6 47355-2) RDW-CV (test code = 15.2 % 12.1-15.4 788-0) PLT (test code = See_Comment L [Automated 777-3) message] The sy stem which generated this result transmitted reference range : 150 - 328 10*3/ ?L. The reference r fernando was not used to interpret this result as normal/abnormal . MPV (test code = 8.8 fL 9.8-13 L 64887-6) NRBC/100 WBC (test See_Comment [Automat ed code = 7053426821) message] The system which generated this result transmitted reference range : 0.0 - 10.0 /100 WBCs. The refer ence range was not u sed to interpret th is result as normal/abnormal . NRBC x10^3 (test code <0.01 See_Comment [Auto mated = 4350391759) message] The s ystem which generated this result transmitted reference range : 10*3/?L. The reference range was not used to interpret this result as normal/abnormal . GRAN MAT (NEUT) % 74.8 % (test code = 770-8) IMM GRAN % (test code 0.70 % = 1506598534) LYMPH % (test code = 12.9 % 736-9) MONO % (test code = 6.1 % 5905-5) EOS % (test code = 4.8 % 713-8) BASO % (test code = 0.7 % 706-2) GRAN MAT x10^3(ANC) 1.10 10*3/uL 1.99-6.95 L (test code = 2327701439) IMM GRAN x10^3 (test <0.03 0-0.06 code = 7085323286) LYMPH x10^3 (test code 0.19 10*3/uL 1.09-3.23 L = 731-0) MONO x10^3 (test code 0.09 10*3/uL 0.36-1.02 L = 742-7) EOS x10^3 (test code = 0.07 10*3/uL 0.06-0.53 711-2) BASO x10^3 (test code <0.03 0.01-0.09 = 704-7) Lab Interpretation Abnormal (test code = 93529-7) [facility] Basic Metabolic Panel (NA, K, CL, CO2, GLUCOSE, BUN, CREATININE, CA)2020-06-22 11:38:00 Test Item Value Reference Range Interpretation Comments NA (test code = 140 mmol/L 135-145 3036199891) K (test code = 4.5 mmol/L 3.5-5 2050124479) CL (test code = 107 mmol/L 98-108 8075032691) CO2 TOTAL (test code = 24 mmol/L -31 4258985114) AGAP (test code = 2-16 1949974418) BUN (test code = 17 mg/dL 7-23 8411430464) GLUCOSE (test code = 110 mg/dL 70-110 8626615051) CREATININE (test code 0.96 mg/dL 0.6-1.25 = 5136940279) CALCIUM (test code = 8.6 mg/dL 8.6-10.6 5227012956) eGFR Calculation mL/min/1.73m2 (Non-) (test code = 8450562994) eGFR Calculation mL/min/1.73m2 () (test code = 9369884815) HAVEN (test code = HAVEN) Association of [...] or urine or abnormalities in imaging tests). [facility] CenterPROCALCITONIN2020-12-31 05:28:00 Test Item Value Reference Range Interpretation Comments Procalcitonin (test 0.08 ng/mL <0.07 H code = 4246976983) HAVEN (test code = HAVEN) INTERPRETATION OF [...] lung abscess/empyema. For further information please refer to:[email or web address] Lab Interpretation Abnormal (test code = 44918-6) [facility] with Ttabkbxwmcwb7651-49-88 21:32:00 Test Item Value Reference Range Interpretation Comments WBC (test code = See_Comment L [Automated 2190-2) message] The sy stem which generated this result transmitted reference range : 4.20 - 10.70 10*3/?L. The reference range was not used to interpret this result as normal/abnormal . RBC (test code = See_Comment L [Automated 099-8) message] The sy stem which generated this [...] RDW-SD (test code = 43.8 fL 38.5-51.6 37751-0) RDW-CV (test code = 15.1 % 12.1-15.4 788-0) PLT (test code = See_Comment L [Automated 777-3) message] The sy stem which generated this result transmitted reference range : 150 - 328 10*3/ ?L. The reference r fernando was not used to interpret this result as normal/abnormal . MPV (test code = 8.4 fL 9.8-13 L 02019-7) NRBC/100 WBC (test See_Comment [Automat ed code = 1076938951) message] The system which generated this result transmitted reference range : 0.0 - 10.0 /100 WBCs. The refer ence range was not u sed to interpret th is result as normal/abnormal . NRBC x10^3 (test code <0.01 See_Comment [Auto mated = 8701784562) message] The s ystem which generated this result transmitted reference range : 10*3/?L. The reference range was not used to interpret this result as normal/abnormal . GRAN MAT (NEUT) % 67.3 % (test code = 770-8) IMM GRAN % (test code 0.40 % = 1338900024) LYMPH % (test code = 19.1 % 736-9) MONO % (test code = 9.6 % 5905-5) EOS % (test code = 3.2 % 713-8) BASO % (test code = 0.4 % 706-2) GRAN MAT x10^3(ANC) 1.69 10*3/uL 1.99-6.95 L (test code = 0414654042) IMM GRAN x10^3 (test <0.03 0-0.06 code = 3040864681) LYMPH x10^3 (test code 0.48 10*3/uL 1.09-3.23 L = 731-0) MONO x10^3 (test code 0.24 10*3/uL 0.36-1.02 L = 742-7) EOS x10^3 (test code = 0.08 10*3/uL 0.06-0.53 711-2) BASO x10^3 (test code <0.03 0.01-0.09 = 704-7) Lab Interpretation Abnormal (test code = 30648-9) [facility] CenterSEDIMENTATION [id number] 21:29:00 Test Item Value Reference Range Interpretation Comments ESR (test code = See_Comment H [Automated message] 9680741393) The system [employer] generated this result transmitted ref erence range: 0 - 10 m m/HR. The reference r fernando was not used to interpret this result as normal/abnor mal. Lab Interpretation (test Abnormal code = 10317-6) [facility] Metabolic Panel (NA, K, CL, CO2, GLUCOSE, BUN, CREATININE, CA)2020-06-21 20:58:00 Test Item Value Reference Range Interpretation Comments NA (test code = 140 mmol/L 135-145 3288518028) K (test code = 4.3 mmol/L 3.5-5 4044678453) CL (test code = 107 mmol/L 98-108 7284180420) CO2 TOTAL (test code = 23 mmol/L 23-31 9719163680) AGAP (test code = 2-16 7140271059) BUN (test code = 22 mg/dL 7-23 8105014119) GLUCOSE (test code = 107 mg/dL 70-110 1855559368) CREATININE (test code = 1.07 mg/dL 0.6-1.25 3852554078) CALCIUM (test code = 8.3 mg/dL 8.6-10.6 L 9401063454) eGFR Calculation mL/min/1.73m2 (Non-) (test code = 3767109431) eGFR Calculation mL/min/1.73m2 () (test code = 0839420505) HAVEN (test code = HAVEN) Association of [...] tests). Lab Interpretation Abnormal (test code = 75498-3) [facility] CenterHepatic Function Panel (ALB, T.PRO, BILI T, BU/BC, ALT, AST, ALK PHOS)2020-06-21 20:58:00 Test Item Value Reference Range Interpretation Comments TOTAL BILI (test code = 6831205990) 0.5 mg/dL 0.1-1.1 BILI UNCON (test code = 5274113617) 0.3 mg/dL 0.1-1.1 BILI CONJ (test code = 6771438803) 0.0 mg/dL 0-0.3 T PROTEIN (test code = 3371868187) 7.0 g/dL 6.3-8.2 ALBUMIN (test code = 7254755807) 3.6 g/dL 3.5-5 ALK PHOS (test code = 1017076683) 89 U/L 34-122 ALTv (test code = 1742-6) 31 U/L 5-50 AST(SGOT) (test code = 4861694085) 35 U/L 13-40 Lab Interpretation (test code = Normal 60821-0) [facility] CenterCREATINE [id number] 20:58:00 Test Item Value Reference Range Interpretation Comments CK (test code = 6983525724) 67 U/L 33-194 Lab Interpretation (test code = Normal 35031-1) [facility] CenterCOVID[facility] (ID NOW RAPID TESTING)2020-06-21 20:51:00 Test Item Value Reference Range Interpretation Comments SARS-CoV-2 Rapid ID NOW Positive Not Detected A (test code = 26793-4) HAVEN (test code = HAVEN) ID NOW COVID-19 Assay is an isothermal nucleic acid amplification test intended for the qualitative detection of nucleic acid from SARS-CoV-2 viral RNA in nasopharyngeal ([employer]) specimens. It is used under Emergency Use [...] indicated. Lab Interpretation Abnormal (test code = 06739-3) [facility] CenterLactic Acid Whole [id number] 20:37:00 Test Item Value Reference Range Interpretation Comments LACTIC ACID (test code = 1.54 mmol/L 0.3-2.6 3720592499) Lab Interpretation (test code = Normal 32647-1) [facility]
[2021-11-20 16:38] LABS: Absolute Lymphocytes (CBC) 0.8 K/uL (0.7-4.9); Hematocrit 39.7 % (39.6-49.0); Lymphocytes % 14.2 % (15.3-44.8); MPV 5.9 fL (7.6-11.3); RBC Red Blood Cell Count 4.89 M/uL (4.33-5.43)
[2021-11-20 16:56] LABS: Potassium 3.5 mmol/L (3.5-5.1)
--- NOTE | 2021-11-20 18:00 | EDPHYS ---
Physician Documentation [facility] Name: Michael Aguiar Age: 71 yrs Sex: Male : 1950 Arrival Date: 11/20/2021 Time: 15:36 Bed 4 Private MD: ED Physician Antoine Price HPI: 11/20 16:26 This 71 yrs old Male presents to ER via EMS with complaints of Wound Infection. ms3 16:27 Patient presents to ED for recheck of: cellulitis. The affected area is on the left ms3 leg. Previous treatment: Currently getting home wound care.. 16:43 Progress: The patient reports increased redness. Patient states on Friday he developed ms3 a black streak on his left leg wound and he was seen at [facility]. Patient states he was called today by [facility] for positive blood cutlure with Staph.. Historical: - Allergies: 15:41 Codeine; ap3 15:41 SILVER; ap3 - PMHx: 15:41 Diabetes mellitus; Hypercholesterolemia; Atrial fibrillation; ap3 - Immunization history:: Adult Immunizations up to date. - Social history:: Smoking status: Patient denies any tobacco usage or history of. ROS: 16:43 Constitutional: Negative for fever, and chills. Neck: Negative for injury, pain, and ms3 swelling, Cardiovascular: Negative for chest pain, and palpitations. Respiratory: Negative for shortness of breath, cough, wheezing, and pleuritic chest pain, Abdomen/GI: Negative for abdominal pain, nausea, vomiting, diarrhea, and constipation, MS/Extremity: Negative for injury and deformity. 16:43 Psych: Negative for depression, anxiety, suicide ideation, homicidal ideation, and hallucinations. 16:43 MS/extremity: Positive for Edema, Leg wound. 16:43 Skin: Positive for cellulitis, Leg wound. 16:43 All other systems are negative. Exam: 16:43 Constitutional: This is a well developed, well nourished patient who is awake, alert, ms3 and in no acute distress. Eyes: Pupils equal round and reactive to light, extra-ocular motions intact. Lids and lashes normal. Conjunctiva and sclera are non-icteric and not injected. Periorbital areas with no swelling, redness, or edema. Neck: Trachea midline, no cervical lymphadenopathy. Supple, full range of motion without nuchal rigidity, or vertebral point tenderness. No Meningismus. Chest/axilla: Normal chest wall appearance and motion. Nontender with no deformity. Cardiovascular: Regular rate and rhythm with a normal S1 and S2. No gallops, murmurs, or rubs. Normal PMI, no JVD. No pulse deficits. Respiratory: Lungs have equal breath sounds bilaterally, clear to auscultation and percussion. No rales, rhonchi or wheezes noted. No increased work of breathing, no retractions or nasal flaring. Abdomen/GI: Soft, non-tender, with normal bowel sounds. No distension or tympany. No guarding or rebound. No evidence of tenderness throughout. Psych: Awake, alert, with orientation to person, place and time. Behavior, mood, and affect are within normal limits. 16:43 Skin: cellulitis, that is mild, on the left leg, Bleeding of left lower leg wound. Vital Signs: 15:36 BP 141 / 89; Pulse 88; Pulse Ox 100% on R/A; Weight 104.33 kg; Height 5 ft. 10 in. ap3 (177.80 cm); 15:36 Temp 97.4; ap3 17:10 BP 128 / 90; Pulse 80; Pulse Ox 99% on R/A; ap3 17:45 BP 114 / 79; Pulse 83; Pulse Ox 99% on R/A; ap3 18:29 BP 132 / 108; Pulse 80; Pulse Ox 99% on R/A; ap3 15:36 Body Mass Index 33.00 (104.33 kg, 177.80 cm) ap3 MDM: 16:10 Patient medically screened. ms3 16:43 Differential diagnosis: cellulitis, Lymphedema vs Bacteremia. ms3 17:58 ED course: Discussed case with Dr Campos and he would like patient placed in ms3 observation. Patient to receive Vancomycin and Cefepime.. 18:14 ED course: Discussed case with EMERITA Durant and she accepts patient as observation. ms3 Discussed plan with patient and he understands/ agrees with plan. All questions answered.. 21:52 Data reviewed: vital signs, nurses notes, lab test result(s). Counseling: I had a ms3 detailed discussion with the patient and/or guardian regarding: the historical points, exam findings, and any diagnostic results supporting the discharge/admit diagnosis, lab results, the need for further work-up and treatment in the hospital. 11/20 16:12 Order name: CBC with Diff; Complete Time: 17:16 ms3 11/20 16:12 Order name: BMP; Complete Time: 17:16 ms3 11/20 16:12 Order name: Blood Culture Adult (2) ms3 11/20 18:00 Order name: COVID-19 SARS RT PCR (Document "Date of Onset" if Symptomatic) kj1 11/20 18:01 Order name: COVID-19 SARS RT PCR (Document "Date of Onset" if Symptomatic) ms3 11/20 21:19 Order name: Glucose, Ancillary Testing EDMS Administered Medications: 18:14 Drug: Cefepime 1 grams Route: IVPB; Rate: 200 ml/hr; Infused Over: 30 mins; Site: right ap3 antecubital; 18:54 Drug: vancoMYCIN 1 grams Route: IVPB; Infused Over: 2 hrs; Site: right antecubital; 6 Disposition Summary: 11/20/21 17:59 Hospitalization Ordered Hospitalization Status: Observation ms3 Provider: Almaz Campbell ms3 Location: Telemetry/MedSurg (observation) ms3 Condition: Stable ms3 Problem: new ms3 Symptoms: are unchanged ms3 Bed/Room Type: Standard ms3 Room Assignment: 408(11/20/21 20:55) cg Diagnosis - Cellulitis Left lower leg ms3 - anemia ms3 Forms: - Medication Reconciliation Form ms3 - SBAR form ms3 Signatures: Dispatcher [employer] Leslie Calixto RN RN cg Sally Palmer RN RN 3 Antoine Price DO DO ms3 Marga Samuels RN RN jh6 Corrections: (The following items were deleted from the chart) 20:55 17:59 ms3 cg
--- NOTE | 2021-11-20 18:00 | ER ---
Nurse's Notes [facility] Name: Michael Aguiar Age: 71 yrs Sex: Male : 1950 Arrival Date: 11/20/2021 Time: 15:36 Bed 4 Private MD: Diagnosis: Cellulitis Left lower leg;anemia Presentation: 11/20 15:36 Chief complaint: Patient states: he was evaluated at another facility on FridayNovember 16, ap3 2021. Patient was sent home same day, but was called today and informed he needed to go to the hospital. Patient reports the phone call from the previous facility informed him he was septic. Patient presents with redness and swelling to his left lower leg. Coronavirus screen: At this time, the client does not indicate any symptoms associated with coronavirus-19. Ebola Screen: No symptoms or risks identified at this time. Initial Sepsis Screen: Does the patient meet any 2 criteria?. Initial Sepsis Screen: Does the patient meet any 2 criteria? No. Patient's initial sepsis screen is negative. Does the patient have a suspected source of infection? No. Patient's initial sepsis screen is negative. Risk Assessment: Do you want to hurt yourself or someone else? Patient reports no desire to harm self or others. Onset of symptoms was October 2021. 15:36 Method Of Arrival: EMS: [facility] ap3 15:36 Acuity: MELECIO 3 ap3 Triage Assessment: 15:39 General: Appears in no apparent distress. Behavior is calm, cooperative. Pain: ap3 Complains of pain in left leg Pain currently is 6 out of 10 on a pain scale. Pain began gradually, over time. Neuro: Level of Consciousness is awake, alert, obeys commands, Oriented to person, place, time, situation, Speech is normal. Cardiovascular: Patient's skin is warm and dry. Respiratory: Airway is patent Respiratory effort is even, unlabored, Respiratory pattern is regular, symmetrical. : Mosher in place patient presents to the ED with mosher already in place. Derm: redness and swelling to patients left lower leg Reports wound on his sacral area. Historical: - Allergies: 15:41 Codeine; ap3 15:41 SILVER; ap3 - PMHx: 15:41 Diabetes mellitus; Hypercholesterolemia; Atrial fibrillation; ap3 - Immunization history:: Adult Immunizations up to date. - Social history:: Smoking status: Patient denies any tobacco usage or history of. Screenin:39 Abuse screen: Denies threats or abuse. Nutritional screening: No deficits noted. ap3 Tuberculosis screening: No symptoms or risk factors identified. Fall Risk No fall in past 12 months (0 pts). Secondary diagnosis (15 points) impaired mobility, IV access (20 points). Ambulatory Aid- None/Bed Rest/Nurse Assist (0 pts). Gait- Impaired (20 pts.). Mental Status- Oriented to own ability (0 pts). Total Damon Fall Scale indicates High Risk Score (45 or more points). Fall prevention measures have been instituted. Side Rails Up X 2 Placed Close to Nursing Station Frequent Obs/Assessments Occuring As available patient and family educated on Fall Prevention Program and Strategies. Assessment: 17:11 Reassessment: Patient and/or family updated on plan of care and expected duration. Pain ap3 level reassessed. Patient is alert, oriented x 3, equal unlabored respirations, skin warm/dry/pink. 18:30 Reassessment: patient unhappy with hospital care. patient states, "maybe the dr will ap3 come in and send me somewhere where they will actually do something". nurse attempting to reassure patient, and get him comfortable. patient demanding air mattress. Nurse performing wound care on patients left lower leg the way it was unwrapped and how patient requested it to be done and patient states "God Damn it woman! No one here can do anything right. You call this place a hospital?" Nurse requested that the patient not curse at her, and continued nursing care while attempting to reassure patient we were doing everything we could to attempt to make him comfortable. Patient then states, "How would ysabel call me and tell me i have an infection in the blood but youre telling me i don't? Jeremy must have done something wrong. I should've just stayed home. I can't believe i have to stay in this room. Why don't jeremy have a God damn bed?!" Nurse assured patient we would get him into a hospital bed as soon as we could in attempt to get him comfortable. Patient restated how he needs an air mattress. Patient remains upset after multiple attempts from the nurse for reassurement. Charge nurse notified of the patients emotional status. 21:17 Reassessment: nurse in4 th floor not able to get report at this time, will call me ke1 backe. 21:51 Reassessment: report given to maribel in med surg telemetry. ke1 Vital Signs: 15:36 BP 141 / 89; Pulse 88; Pulse Ox 100% on R/A; Weight 104.33 kg; Height 5 ft. 10 in. ap3 (177.80 cm); 15:36 Temp 97.4; ap3 17:10 BP 128 / 90; Pulse 80; Pulse Ox 99% on R/A; ap3 17:45 BP 114 / 79; Pulse 83; Pulse Ox 99% on R/A; ap3 18:29 BP 132 / 108; Pulse 80; Pulse Ox 99% on R/A; ap3 15:36 Body Mass Index 33.00 (104.33 kg, 177.80 cm) ap3 ED Course: 15:36 Patient arrived in ED. ap3 15:36 Antoine Price DO is Attending Physician. ms3 15:39 Triage completed. ap3 15:42 Arm band placed on right wrist. ap3 15:42 Patient has correct armband on for positive identification. Bed in low position. Call ap3 light in reach. Side rails up X 1. chemistry instructor on. Pulse ox on. NIBP on. Door closed. Noise minimized. 17:58 Almaz Campbell MD is Hospitalizing Provider. ms3 17:58 Removal of left lower leg dressing for assessment. ap3 18:14 COVID-19 SARS RT PCR (Document "Date of Onset" if Symptomatic) Sent. ap3 18:29 Dressings: ABD pad X 4; left leg Kerlix X 2; left leg. ap3 19:12 role handed off by Sally Palmer, MALATHI kj1 19:16 Erasmo Mock, MALATHI is Primary Nurse. as6 Administered Medications: 18:14 Drug: Cefepime 1 grams Route: IVPB; Rate: 200 ml/hr; Infused Over: 30 mins; Site: right ap3 antecubital; 18:54 Drug: vancoMYCIN 1 grams Route: IVPB; Infused Over: 2 hrs; Site: right antecubital; jh6 Medication: 15:42 VIS not applicable for this client. ap3 Outcome: 17:59 Decision to Hospitalize by Provider. ms3 22:23 Patient left the ED. ke1 Signatures: Sally Palmer, RN RN ap3 Shauna Ramos kj1 Antoine Price DO DO ms3 Erasmo Mock RN RN as6 Marga Samuels RN RN jh6 Maged Levy RN RN ke1
[2021-11-20] MEDS ORDERED: VANCOMYCIN 1 GM/VIAL ONE (18:13)
[2021-11-20] MEDS ORDERED: NA CHLORIDE 0.9% 250 ML ONE ×2 (18:14→22:50)
[2021-11-20] MEDS ORDERED: NA CHLORIDE 0.9% 100 ML ONE (18:14)
[2021-11-20] MEDS ORDERED: CEFEPIME 1 GM/VIAL ONE (18:14)
[2021-11-20] MEDS: VANCOMYCIN 1 GM in NA CHLORIDE 0.9% 250 ML IVPB SCH ×2 (18:54→21:00)
--- NOTE | 2021-11-20 18:58 | P.HP ---
Certification for Inpatient Patient admitted to: Observation With expected LOS: <2 Midnights Patient will require the following post-hospital care: None Practitioner: I am a practitioner with admitting privileges, knowledge of patient current condition, hospital course, and medical plan of care. Services: Services provided to patient in accordance with Admission requirements found in Title 42 Section 412.3 of the Code of Federal Regulations Patient History Date of Service: 11/20/21 Reason for admission: Cellulitus LLE History of Present Illness: Patient is a 71 y/o male with PMH of NIDDM, HTN, lymphadema, morbid obesity, COPD, and venous stasis with BLE ulcers (under the care of Dr. Campos) presented to the ER today with concerns for sepsis. Patient states that he was seen in [place] 4 days ago for "a black streak on his LLE" and discharged. They called him today telling him that his blood cultures were positive and that he needed treatment. Upon obtaining records from [place], 1 of the blood cultures was positive for staph and was noted that it was likely a skin contaminant. He denies any episode of fever, chills, night sweats, or recent trauma to the leg. He is complaining of pain at the site of cellulitus, pain where he has a sacral wound, and diarrhea. Patient states he last had antibiotics about 4 weeks ago. Labs and vitals WNL today. New blood cultures drawn. Dr. Campos was notified and wishes for patient to be admitted to hospitalist for observation with IV antibiotics and he will see patient in the morning. Allergies codeine Adverse Reaction (Verified 10/26/13 04:13) diarrhea Home medications list reviewed: Yes Home Medications: Hydrocodone Bit/Acetaminophen [Hydrocodon-Acetaminophn 10-325] 1 each PO Q4HP PRN 10/26/13 Acetaminophen [Non-Aspirin] 325 mg PO DAILY 10/02/21 Amiodarone HCl [Cordarone Tab] 200 mg PO DAILY 10/02/21 Ascorbic Acid [C-500] 500 mg PO DAILY 10/02/21 Atorvastatin Calcium [Lipitor] 40 mg PO BEDTIME 10/02/21 Clonidine HCl [Clonidine HCl ER] 0.1 mg PO DAILY 10/02/21 Gabapentin [Neurontin] 600 mg PO QID 10/02/21 Liothyronine [Cytomel] 25 mcg PO DAILY 10/02/21 Melatonin 10 mg PO BEDTIME 10/02/21 Midodrine HCl 3 tab PO Q8H 10/02/21 Polyethylene Glycol 3350 [Miralax] 17 gm PO DAILY 10/02/21 Rivaroxaban [Xarelto] 20 mg PO DAILY 10/02/21 methocarbamoL [Methocarbamol] 750 mg PO TID 10/02/21 - Past Medical/Surgical History Diabetic: Yes -: HTN -: Chronic Ulcers on lower left leg -: Lymphedema -: Osteoarthritis -: Obstructive Sleep Apnea -: COPD -: Morbid Obesity -: Neuropathy -: Chronic pain -: Type 2 diabtes, non-insulin dependent -: L Knee replacement -: Hernia repair -: Compound fx Left Leg Psychosocial/ Personal History: Lives by himself. - Family History Father -: Heart disease, Hypertension, Stroke Mother -: Heart disease, Hypertension Sister -: Heart disease, Hypertension Brother -: Stroke - Social History Smoking Status: Never smoker Alcohol use: No CD- Drugs: No Caffeine use: Yes Place of Residence: Home Review of Systems Gastrointestinal: Diarrhea Musculoskeletal: Leg Pain, Other (sacral pain) Physical Examination - Physical Exam General: Alert, In no apparent distress, Obese HEENT: Atraumatic, PERRLA, EOMI, Sclerae nonicteric Neck: Supple, 2+ carotid pulse no bruit, No LAD, Without JVD or thyroid abnormality Respiratory: Clear to auscultation bilaterally, Normal air movement Cardiovascular: Regular rate/rhythm, Normal S1 S2 Gastrointestinal: Normal bowel sounds, No tenderness Musculoskeletal: No tenderness Integumentary: Skin breakdown, Skin lesion, Tenderness/swelling, Erythema, Warmth Neurological: Normal speech, Sensation intact, Normal affect Urinary: Higgins catheter - Studies Laboratory Data (last 24 hrs) 11/20/21 16:26: Sodium 139, Potassium 3.5, BUN 14, Creatinine 0.61, Glucose 100 11/20/21 16:26: WBC 6.0, Hgb 12.7 L, Hct 39.7, Plt Count 238 Assessment and Plan - Problems (Diagnosis) (1) Type 2 diabetes mellitus Current Visit: Yes Status: Acute Qualifiers: Diabetes mellitus group home insulin use: without long wall shear operator use Diabetes mellitus complication status: with skin complications Diabetes mellitus complication detail: with other skin complication Qualified Code(s): E11.628 - Type 2 diabetes mellitus with other skin complications (2) Cellulitis of left lower extremity Current Visit: Yes Status: Acute (3) Chronic ulcer Current Visit: Yes Status: Chronic Qualifiers: Non-pressure ulcer stage: unspecified non-pressure ulcer stage Qualified Code(s): L98.499 - Non-pressure chronic ulcer of skin of other sites with unspecified severity (4) Hypertension Current Visit: Yes Status: Chronic Qualifiers: Hypertension type: primary hypertension Qualified Code(s): I10 - Essential (primary) hypertension (5) Lymphedema Current Visit: Yes Status: Chronic (6) Morbid obesity Current Visit: Yes Status: Chronic (7) COPD (chronic obstructive pulmonary disease) Current Visit: No Status: Chronic Qualifiers: COPD type: unspecified COPD Qualified Code(s): J44.9 - Chronic obstructive pulmonary disease, unspecified - Plan -Patient admitted for observation -IV vanc and cefepime per Dr. Campos -No concern for sepsis at this time- no leukocytosis, VSS, lactic acid WNL. Follow new blood cultures. -Wound care ordered -ACHS accu checks with moderate sliding scale insulin and diabetic diet -Reconcile and continue home medications -Lovenox for VTE ppx -Full code Discharge Plan: Home Plan to discharge in: 24 Hours - Advance Directives Does patient have a Living Will: No Does patient have a Durable POA for Healthcare: No - Code Status/Comfort Care Code Status Assessed: Yes (Full) Critical Care: No Time Spent Managing Pts Care (In Minutes): 70
[2021-11-20] MEDS ORDERED: ACETAMINOPHEN 500 MG TAB PO PRN (20:10)
[2021-11-20] MEDS ORDERED: ONDANSETRON 4 MG/2 ML VIAL IV PRN (20:10)
[2021-11-20] MEDS: CEFEPIME 1 GM in NA CHLORIDE 0.9% 100 ML IV SCH (21:00)
[2021-11-20] MEDS: INSULIN -REGULAR HUMAN 50 UNIT/0.5 ML ML SQ SCH (21:00)
[2021-11-20] MEDS ORDERED: VANCOMYCIN 750 MG in NA CHLORIDE 0.9% 150 ML IVPB ONE (21:30)
[2021-11-20 22:14] VITALS: BMI 33.0
[2021-11-20] MEDS ORDERED: VANCOMYCIN 500 MG/VIAL ONE (22:49)
[2021-11-20 22:57] VITALS: O2SAT 99
[2021-11-20] MEDS: MORPHINE 4 MG/ML SYR IV PRN (23:10)
[2021-11-21] MEDS: MORPHINE 4 MG/ML SYR IV PRN ×2 (05:29→11:35)
[2021-11-21] MEDS: INSULIN -REGULAR HUMAN 50 UNIT/0.5 ML ML SQ SCH ×2 (07:30→11:30)
[2021-11-21] MEDS ORDERED: ENOXAPARIN 40 MG/0.4 ML SQ SCH (09:00)
[2021-11-21] MEDS: VANCOMYCIN 1.5 GM in NA CHLORIDE 0.9% 500 ML IVPB SCH ×2 (09:00→20:23)
[2021-11-21] MEDS: CEFEPIME 1 GM in NA CHLORIDE 0.9% 100 ML IV SCH ×2 (09:34→20:23)
[2021-11-21] MEDS ORDERED: VANCOMYCIN 1.75 GM in NA CHLORIDE 0.9% 500 ML IVPB SCH (12:00)
[2021-11-21] MEDS ORDERED: HYDROCODONE/APAP 10/325 TAB PO PRN (12:18)
[2021-11-21 15:31] LABS: Urine Appearance Clear (Clear); Urine Bilirubin Negative (Negative); Urine Blood Negative (Negative); Urine Color Yellow (Yellow); Urine Glucose Negative (Negative); Urine Protein Negative (Negative); Urine Specific Gravity 1.015 (1.005-1.030); Urine Urobilinogen 0.2 mg/dL (0.2-1.0)
[2021-11-21 15:43] LABS: Urine Bacteria <20 /HPF (NONE SEEN); Urine Microscopic Reflex ORDER UMIC
--- NOTE | 2021-11-21 17:32 | P.PN ---
Subjective Date of Service: 11/21/21 Chief Complaint: Cellulitus LLE Patient has no new complaint. 1 blood culture bottle is growing gram-positive cocci. No recorded fever. Physical Examination - Vital Signs Temperature: 98.4 F Blood Pressure: 90/55 Pulse: 89 Respirations: 20 Pulse Ox (%): 97 - Physical Exam General: Alert, In no apparent distress, Oriented x3 HEENT: Mucous membr. moist/pink Neck: JVD not distended Respiratory: Clear to auscultation bilaterally, Normal air movement Cardiovascular: Regular rate/rhythm, Normal S1 S2, Edema (Bilateral lower extremities) Gastrointestinal: Normal bowel sounds, Soft and benign, Non-distended, No tenderness Musculoskeletal: Swelling (Bilateral leg) Integumentary: Venous stasis ulcer (Bilateral lower extremities) Neurological: Normal strength at 5/5 x4 extr, Cranial nerves 3-12 intact - Studies Microbiology Data (last 24 hrs): 11/20/21 16:20 Blood - Blood Blood Culture Gram Stain - Final Assessment And Plan - Current Problems (Diagnosis) (1) Gram-positive bacteremia Current Visit: Yes Status: Acute (2) Cellulitis of left lower extremity Current Visit: Yes Status: Acute (3) Type 2 diabetes mellitus Current Visit: Yes Status: Acute Qualifiers: Diabetes mellitus terminal block assembler insulin use: without terminal block assembler use Diabetes mellitus complication status: with skin complications Diabetes mellitus com plication detail: with other skin complication Qualified Code(s): E11.628 - Type 2 diabetes mellitus with other skin complications (4) Lymphedema Current Visit: Yes Status: Chronic (5) Morbid obesity Current Visit: Yes Status: Chronic (6) Chronic venous hypertension (idiopathic) with ulcer and inflammation of bilateral lower extremity Current Visit: No Status: Acute (7) Obstructive sleep apnea Current Visit: No Status: Acute (8) Chronic atrial fibrillation Current Visit: Yes Status: Acute - Plan One of the 2 sets of blood cultures obtained on admission is growing gram- positive cocci. Infectious disease consulted. Case discussed with Dr. Campos who mentioned patient blood culture done at [facility] is growing staph epidermidis. Continue double antibiotic coverage given history of diabetes and chronic infected lower extremity venous ulcers. Per Dr. Campos, patient would like to follow with his surgeon at [facility] for debridement and does not want to use any of the surgeons here. Patient may need prolonged IV antibiotic therapy and appropriate for LTAC placement for both wound care and antibiotics. Social service consulted for LTAC placement. Obtain echocardiogram. Insulin sliding scale for glucose management. Continue amiodarone and Xarelto.
[2021-11-21] MEDS ORDERED: POLYVINYL ALCOHOL 1.4% 15 ML EACH EYE PRN (18:24)
[2021-11-21] MEDS: GABAPENTIN 300 MG CAP PO SCH (20:22)
[2021-11-21] MEDS: HYDROCODONE/APAP 10/325 TAB PO PRN (20:23)
[2021-11-21] MEDS: NYSTATIN PWDR 100000 UNIT/GM TOP SCH (20:25)
[2021-11-21] MEDS: RIVAROXABAN 20 MG TABLET PO SCH (20:27)
[2021-11-21] MEDS ORDERED: HOME MED 1 EA UNK (Gabapentin [Neurontin] 600 MG Tablet) PO SCH (21:00)
[2021-11-21] MEDS ORDERED: ATORVASTATIN 40 MG TAB PO SCH (21:00)
[2021-11-22 04:05] LABS: Absolute Lymphocytes (CBC) 0.7 K/uL (0.7-4.9); Hematocrit 33.5 % (39.6-49.0); Lymphocytes % 18.3 % (15.3-44.8); MPV 5.8 fL (7.6-11.3); RBC Red Blood Cell Count 4.22 M/uL (4.33-5.43)
[2021-11-22 04:08] LABS: Potassium 3.8 mmol/L (3.5-5.1)
[2021-11-22] MEDS: HYDROCODONE/APAP 10/325 TAB PO PRN ×3 (05:37→17:31)
[2021-11-22] MEDS ORDERED: LIOTHYRONINE SOD 25 MCG TAB PO SCH (06:30)
[2021-11-22] MEDS: VANCOMYCIN 1.5 GM in NA CHLORIDE 0.9% 500 ML IVPB SCH (08:58)
[2021-11-22] MEDS ORDERED: AMIODARONE HCL 200 MG TAB PO SCH (09:00)
[2021-11-22] MEDS: NYSTATIN PWDR 100000 UNIT/GM TOP SCH (09:00)
[2021-11-22] MEDS ORDERED: DOCUSATE SODIUM 50 MG PO SCH (09:00)
[2021-11-22] MEDS: GABAPENTIN 300 MG CAP PO SCH ×2 (09:06→13:33)
[2021-11-22] MEDS: RIVAROXABAN 20 MG TABLET PO SCH (09:06)
[2021-11-22] MEDS: CEFEPIME 1 GM in NA CHLORIDE 0.9% 100 ML IV SCH (09:06)
--- NOTE | 2021-11-22 11:55 | P.PN ---
Subjective Date of Service: 11/22/21 Chief Complaint: Cellulitus LLE Subjective: Ambulating, Other Patient seen and examined at bedside, blood cultures growing coagulase-negative staph in 1 out of 4 bottles. Review of Systems 10-point ROS is otherwise unremarkable Physical Examination - Vital Signs Temperature: 99.0 F Blood Pressure: 116/66 Pulse: 71 Respirations: 18 Pulse Ox (%): 96 - Physical Exam General: Alert, Obese HEENT: Atraumatic, Normocephalic Neck: Supple, JVD not distended Respiratory: Clear to auscultation bilaterally, Normal air movement Cardiovascular: Normal pulses, Regular rate/rhythm Capillary refill: <2 Seconds Gastrointestinal: Normal bowel sounds, Soft and benign Integumentary: Other (Bilateral lower extremity venous stasis ulcerations: Left lower extremity venous stasis wound of circumferential with beefy red base that bleeds easily during dressing change stage IV sacral ulcer) Urinary: Higgins catheter - Studies Laboratory Last Values WBC 6.0 K/uL (4.3-10.9) 11/20/21 16:26 RBC 4.89 M/uL (4.33-5.43) 11/20/21 16:26 Hgb 12.7 g/dL (13.6-17.9) L 11/20/21 16:26 Hct 39.7 % (39.6-49.0) 11/20/21 16:26 MCV 81.1 fL (80-100) 11/20/21 16:26 MCH 25.9 pg (27.0-35.0) L 11/20/21 16:26 MCHC 31.9 g/dL (32.0-36.0) L 11/20/21 16:26 RDW 17.6 % (12.1-15.2) H 11/20/21 16:26 Plt Count 238 K/uL (152-406) 11/20/21 16:26 MPV 5.9 fL (7.6-11.3) L 11/20/21 16:26 Neutrophils % 71.5 % (41.7-73.7) 11/20/21 16:26 Lymphocytes % 14.2 % (15.3-44.8) L 11/20/21 16:26 Monocytes % 8.7 % (3.3-12.3) 11/20/21 16:26 Eosinophils % 4.6 % (0-4.4) H 11/20/21 16: Basophils % 1.0 % (0-1.3) 11/20/21 16: Absolute Neutrophils 4.3 K/uL (1.8-8.0) 11/20/21 16: Absolute Lymphocytes 0.8 K/uL (0.7-4.9) 11/20/21 16: Absolute Monocytes 0.5 K/uL (0.1-1.3) 11/20/21 16: Absolute Eosinophils 0.3 K/uL (0-0.5) 11/20/21 16: Absolute Basophils 0.1 K/uL (0-0.5) 11/20/21 16:26 Sodium 139 mmol/L (136-145) 11/20/21 16: Potassium 3.5 mmol/L (3.5-5.1) 11/20/21 16: Chloride 106 mmol/L (98-107) 11/20/21 16: Carbon Dioxide 29 mmol/L (21-32) 11/20/21 16:26 Anion Gap 7.5 mEq/L (5.0-15.0) 11/20/21 16: BUN 14 mg/dL (7-18) 11/20/21 16:26 Creatinine 0.61 mg/dL (0.55-1.3) 11/20/21 16:26 Est GFR (CKD-EPI) 102 ml/min (=/>90) 11/20/21 16:26 Glucose 100 mg/dL (74-106) 11/20/21 16: POC Glucose 107 mg/dL (65-120) 11/21/21 11:49 Calcium 8.8 mg/dL (8.5-10.1) 11/20/21 16:26 Urine Color Yellow (Yellow) 11/21/21 15: Urine Appearance Clear (Clear) 11/21/21 15: Urine pH 8.0 (5.0-7.0) H 11/21/21 15:28 Ur Specific [place] 1.015 (1.005-1.030) 11/21/21 15:28 Glucose (UA)(Auto) Negative (Negative) 11/21/21 15: Urine Ketones Negative (Negative) 11/21/21 15:28 Urine Blood Negative (Negative) 11/21/21 15:28 Urine Nitrite Positive (Negative) H 11/21/21 15:28 Urine Bilirubin Negative (Negative) 11/21/21 15:28 Urine Urobilinogen 0.2 mg/dL (0.2-1.0) 11/21/21 15:28 Ur Leukocyte Esterase 1+ (Negative) H 11/21/21 15:28 Urine RBC 5-10 /HPF (NONE SEEN) H 11/21/21 15:28 Urine WBC 10-20 /HPF (<5) H 11/21/21 15:28 Ur Squamous Epith Cells <5 /HPF (NONE SEEN) 11/21/21 15:28 Urine Bacteria <20 /HPF (NONE SEEN) 11/21/21 15:28 Urine Culture Reflexed Reflexed 11/21/21 15:28 Urine Total Protein Negative (Negative) 11/21/21 15:28 SARS-CoV-2 Rap RNA(RT-PCR) Negative (NEGATIVE) 11/20/21 18:14 Microbiology Data (last 24 hrs): 11/20/21 16:20 Blood - Blood Blood Culture Gram Stain - Final 11/21/21 06:59 Other - Coccyx Gram Stain - Final Assessment And Plan - Plan Antibiotics: Vancomycin: urrent Cefepime: 11/20current Assessment/plan Chronic bilateral lower extremity stasis dermatitis with venous ulcerations Patient admitted secondary to concern for infected left lower extremity venous ulceration. There is an area of necrotic/soft tissue present on the posterior lateral aspect of the left calf. Patient has tried several different wound care modalities all of which caused a burning sensation to the patient. As such he refuses all treatment, will only allow the wounds to be cleansed with saline, covered with ABD pads, and then wrapped with Kerlix. This dressing is to be changed daily or as needed if soiled or removed. -Previous wound cultures from bilateral lower extremities grew MRSA and Acetobacter. Recommend continuing IV vancomycin and cefepime at this time. Recommend punch biopsy to evaluate for SCC Bacteremia? Patient was seen in [place] ED this past Friday, blood cultures were positive for staph epi in 1 out of 4 bottles. Blood cultures obtained in our facility growing coagulase-negative staph in 1 out of 4 bottles. Recommend continuing vancomycin and cefepime at this time. UTI Patient has chronic Higgins catheter, gets UTIs frequently. Possibly colonized. Urine culture pending, urinalysis positive for WBCs, leuk esterase, nitrites. Anemia Continue to monitor H&H Dispo: LTAC Plan of care discussed with Dr. Herrera Thank you for consultation
--- NOTE | 2021-11-22 12:03 | P.CNS ---
Date of Consult: 11/21/21 Chief Complaint: Cellulitus LLE History of Present Illness: Mr. Calero is a 71-year-old male with a past medical history of chronic lower extremity venous stasis ulcerations, chronic stage IV sacral decubitus ulcer, essential hypertension, morbid obesity, chronic Higgins with recurrent urinary tract infections who is well-known to our practice. He sees Dr. Herrera outpatient in the wound care center. Was last seen this past . He presented to [place] emergency department secondary to concern for infected left lower extremity ulcer after his home health nurse noted "a black streak" going up his leg. He now presents to our facility. Blood cultures at [place] grew staph epi in 1 out of 4 bottles. Repeat cultures obtained at our facility are pending. Empiric vancomycin and cefepime has been started. Patient currently denies nausea/vomiting/shortness of breath/chest pain. Reports tenderness to bilateral lower extremities and sacral wound. Allergies codeine Adverse Reaction (Verified 10/26/13 04:13) diarrhea Home Medications: Amiodarone HCl [Cordarone*] 200 mg PO DAILY 11/20/21 Atorvastatin Calcium [Lipitor] 40 mg PO BEDTIME 11/20/21 Docusate Sodium [Stool Softener] 1 tab PO DAILY 11/20/21 Gabapentin [Neurontin] 600 mg PO TID 11/20/21 Hydrocodone Bit/Acetaminophen [Hydrocodon-Acetaminophn 10-325] 1 each PO Q6HP PRN 11/20/21 Liothyronine [Cytomel*] 25 mcg PO [id number] 11/20/21 Rivaroxaban [Xarelto] 20 mg PO DAILY WITH BREAKFAST 11/20/21 Nystatin Powder [Mycostatin (Powder)*] 1 appl TOP BID btl 11/22/21 POLYV ALC 1.4% Opth [Liquiflim Tears 1.4%*] 1 drops EACH EYE TID PRN btl 11/22/21 - Past Medical/Surgical History Diabetic: No -: HTN -: Chronic Ulcers on lower left leg -: Lymphedema -: Osteoarthritis -: Obstructive Sleep Apnea -: COPD -: Morbid Obesity -: Neuropathy -: Chronic pain -: heart arrhythmia -: L Knee replacement -: Hernia repair -: Compound fx Left Leg Psychosocial/ Personal History: Lives by himself. - Family History Father Medical History: Heart disease, Hypertension, Stroke Mother Medical History: Heart disease, Hypertension Sister Medical History: Heart disease, Hypertension Brother Medical History: Stroke - Social History Smoking Status: Never smoker Alcohol use: No CD- Drugs: No Caffeine use: Yes Place of Residence: Home Physical Examination Temp Pulse Resp BP Pulse Ox 99.0 F 71 18 116/66 96 11/22/21 12:01 11/22/21 12:01 11/22/21 12:11/22/21 12:11/22/21 12:01 Conclusions/Impression: Physical exam: General: Alert, Obese HEENT: Atraumatic, Normocephalic Neck: Supple, JVD not distended Respiratory: Clear to auscultation bilaterally, Normal air movement Cardiovascular: Normal pulses, Regular rate/rhythm Capillary refill: <2 Seconds Gastrointestinal: Normal bowel sounds, Soft and benign Integumentary: Other (Bilateral lower extremity venous stasis ulcerations: Left lower extremity venous stasis wound of circumferential with beefy red base that bleeds easily during dressing change stage IV sacral ulcer) Urinary: Higgins catheter Antibiotics: Vancomycin: urrent Cefepime: 11/20current Assessment/plan Chronic bilateral lower extremity stasis dermatitis with venous ulcerations Patient admitted secondary to concern for infected left lower extremity venous ulceration. There is an area of necrotic/soft tissue present on the posterior lateral aspect of the left calf. Patient has tried several different wound care modalities all of which caused a burning sensation to the patient. As such he refuses all treatment, will only allow the wounds to be cleansed with saline, covered with ABD pads, and then wrapped with Kerlix. This dressing is to be changed daily or as needed if soiled or removed. -Previous wound cultures from bilateral lower extremities grew MRSA and Acetobacter. Recommend continuing IV vancomycin and cefepime at this time. Recommend punch biopsy to evaluate for SCC Bacteremia? Patient was seen in [place] ED this past Friday, blood cultures were positive for staph epi in 1 out of 4 bottles. Blood cultures obtained in our facility growing coagulase-negative staph in 1 out of 4 bottles. Recommend continuing vancomycin and cefepime at this time. UTI Patient has chronic Higgins catheter, gets UTIs frequently. Possibly colonized. Urine culture pending, urinalysis positive for WBCs, leuk esterase, nitrites. Anemia Continue to monitor H&H Dispo: LTAC Plan of care discussed with Dr. Herrera Thank you for consultation
--- NOTE | 2021-11-22 13:18 | P.DS ---
Admission Date: 11/21/21 Discharge Date: 11/22/21 Disposition: [facility] Discharge Condition: FAIR Reason for Admission: Cellulitus LLE - Problems (1) Gram-positive bacteremia Current Visit: Yes Status: Acute (2) Cellulitis of left lower extremity Current Visit: Yes Status: Acute (3) Type 2 diabetes mellitus Current Visit: Yes Status: Acute Qualifiers: Diabetes mellitus shelter insulin use: without termite exterminator helper use Diabetes mellitus complication status: with skin complications Diabetes mellitus complication detail: with other skin complication Qualified Code(s): E11.628 - Type 2 diabetes mellitus with other skin complications (4) Lymphedema Current Visit: Yes Status: Chronic (5) Morbid obesity Current Visit: Yes Status: Chronic (6) Chronic venous hypertension (idiopathic) with ulcer and inflammation of bilateral lower extremity Current Visit: No Status: Acute (7) Obstructive sleep apnea Current Visit: No Status: Acute (8) Chronic atrial fibrillation Current Visit: Yes Status: Acute (9) Sacral decubitus ulcer, stage IV Current Visit: Yes Status: Acute Brief History of Present Illness: Patient is a 71 y/o male with PMH of NIDDM, HTN, lymphadema, morbid obesity, COPD, and venous stasis with BLE ulcers (under the care of Dr. Campos) presented to the ER with concerns for sepsis. Patient stated that he was seen in [place] 4 days ago for "a black streak on his LLE" and discharged. They called him after discharge telling him that his blood cultures were positive and that he needed treatment. Upon obtaining records from [place], 1 of the blood cultures was positive for staph and was noted that it was likely a skin contaminant. He denied any episode of fever, chills, night sweats, or recent trauma to the leg. He was complaining of pain at the site of cellulitus, pain where he has a sacral wound, and diarrhea. Patient stated he last had antibiotics about 4 weeks ago. Labs and vitals WNL today. New blood cultures drawn. Dr. Campos was notified and we recommended admission to the hospitalist service. Hospital Course: One of the 2 sets of blood cultures obtained on this admission is coagulase- negative staph. Infectious disease consulted. Case discussed with Dr. Campos who mentioned patient blood culture done at [facility] is growing staph epidermidis. Continue double antibiotic coverage given history of diabetes and chronic infected lower extremity venous ulcers and sacral decubitus ulcer. Per Dr. Campos, patient would like to follow with his surgeon at [facility] for debridement and does not want to use any of the surgeons here. Patient will need prolonged IV antibiotic therapy and complex wound care. He has been accepted for transfer to LTAC. Clinically stable for transfer. Continue amiodarone and Xarelto during the hospital stay. Vital Signs/Physical Exam: Temp Pulse Resp BP Pulse Ox 99.0 F 71 18 116/66 96 11/22/21 12:01 11/22/21 12:01 11/22/21 12:01 11/22/21 12:11/22/21 12:01 General: Alert, In no apparent distress, Oriented x3 HEENT: Mucous membr. moist/pink Neck: Supple, JVD not distended Respiratory: Clear to auscultation bilaterally, Normal air movement Cardiovascular: Normal S1 S2, Edema (Bilateral lower extremities), Irregular heart rate/rhythm Gastrointestinal: Soft and benign, Non-distended, No tenderness Integumentary: Venous stasis ulcer (Bilateral lower extremities) Neurological: Normal strength at 5/5 x4 extr Laboratory Data at Discharge: WBC 4.0 K/uL (4.3-10.9) L D 11/22/21 03:25 Hgb 11.3 g/dL (13.6-17.9) L 11/22/21 03:25 Hct 33.5 % (39.6-49.0) L D 11/22/21 03:25 Plt Count 179 K/uL (152-406) D 11/22/21 03:25 Sodium 141 mmol/L (136-145) 11/22/21 03:25 Potassium 3.8 mmol/L (3.5-5.1) 11/22/21 03:25 BUN 10 mg/dL (7-18) 11/22/21 03:25 Creatinine 0.48 mg/dL (0.55-1.3) L 11/22/21 03:25 Glucose 94 mg/dL (74-106) 11/22/21 03:25 Home Medications: Amiodarone HCl [Cordarone*] 200 mg PO DAILY 11/20/21 Atorvastatin Calcium [Lipitor] 40 mg PO BEDTIME 11/20/21 Docusate Sodium [Stool Softener] 1 tab PO DAILY 11/20/21 Gabapentin [Neurontin] 600 mg PO TID 11/20/21 Hydrocodone Bit/Acetaminophen [Hydrocodon-Acetaminophn 10-325] 1 each PO Q6HP PRN 11/20/21 Liothyronine [Cytomel*] 25 mcg PO [id number] 11/20/21 Rivaroxaban [Xarelto] 20 mg PO DAILY WITH BREAKFAST 11/20/21 Nystatin Powder [Mycostatin (Powder)*] 1 appl TOP BID btl 11/22/21 POLYV ALC 1.4% Opth [Liquiflim Tears 1.4%*] 1 drops EACH EYE TID PRN btl 11/22/21 Followup: NONE,NONE [Primary Care Provider] - Time spent managing pt's care (in minutes): 36
[2021-11-22 17:36] VITALS: BP 99/68; TEMP 98.3
--- NOTE | 2021-11-23 07:16 | ECHO ---
HEIGHT: 5 ft 10 in WEIGHT: 230 lb 0 oz DATE OF STUDY: 11/22/[address]: kim poole 2-DIMENSIONAL: YES M.MODE: YES DOPPLER: YES COLOR FLOW: YES TDS: NO PORTABLE: YES DEFINITY: NO BUBBLE STUDY: NO DIAGNOSIS: BACTEREMIA/ ENDOCARDITIS CARDIAC HISTORY: CATHERIZATION: SURGERY: PROSTHETIC VALVE: PACEMAKER: MEASUREMENTS (cm) DIASTOLIC (NORMALS) SYSTOLIC (NORMALS) IVSd 1.1 (0.6-1.2) LA Diam 4.0 (1.9-4.0) LVEF 60-65% LVIDd 4.9 (3.5-5.7) LVIDs 2.7 (2.0-3.5) %FS 45% LVPWd 1.0 (0.6-1.2) Ao Diam 2.8 (2.0-3.7) 2 DIMENSIONAL ASSESSMENT: RIGHT ATRIUM: NORMAL LEFT ATRIUM: NORMAL RIGHT VENTRICLE: NORMAL LEFT VENTRICLE: NORMAL TRICUSPID VALVE: MILD TRICUSPID REGURGITATION MITRAL VALVE: MILD MITRAL REGURGITATION PULMONIC VALVE: NORMAL AORTIC VALVE: THICKENED, NO AORTIC STENOSIS PERICARDIAL EFFUSION: TRACE AORTIC ROOT: NORMAL LEFT VENTRICULAR WALL MOTION: NORMAL. DOPPLER/COLOR FLOW: SEE BELOW. COMMENTS: NORMAL LEFT VENTRICULAR EJECTION FRACTION 60-65%. MILD MITRAL REGURGITATION, MILD TRICUSPID REGURGITATION. THICKENED AORTIC VALVE, MILD AORTIC INSUFFICIENCY, THIS COULD BE AN EARLY VEGETATION, RECOMMEND TRANSESOPHAGEAL ECHOCARDIOGRAM IF CLINICALLY INDICATED. TECHNOLOGIST: CHEL GARCIA
[2021-11-23] MEDS ORDERED: VANCOMYCIN 1.5 GM in NA CHLORIDE 0.9% 500 ML IVPB SCH (09:00)
== END 2021-11-22 19:20 | DRG 637 ==
LOC: ER 15:34 → ERHOLD 18:49 → 4TH 21:53 → OBSVTOIN 11-21 19:30
PROVIDERS: ADMIT Internal Medicine; ATTEND Internal Medicine
DX: E11.628 Type 2 diabetes mellitus with other skin complications (principal); L89.154 Pressure ulcer of sacral region, stage 4; I87.333 Chronic venous hypertension (idiopathic) with ulcer and inflammation of bilateral lower extremity; T83.511A Infection and inflammatory reaction due to indwelling urethral catheter, initial encounter; N39.0 Urinary tract infection, site not specified; L03.116 Cellulitis of left lower limb; R78.81 Bacteremia; L97.929 Non-pressure chronic ulcer of unspecified part of left lower leg with unspecified severity; L97.919 Non-pressure chronic ulcer of unspecified part of right lower leg with unspecified severity; I48.20 Chronic atrial fibrillation, unspecified; B96.5 Pseudomonas (aeruginosa) (mallei) (pseudomallei) as the cause of diseases classified elsewhere; D64.9 Anemia, unspecified; J44.9 Chronic obstructive pulmonary disease, unspecified; E11.40 Type 2 diabetes mellitus with diabetic neuropathy, unspecified; G47.33 Obstructive sleep apnea (adult) (pediatric); E66.01 Morbid (severe) obesity due to excess calories; Z68.33 Body mass index [BMI] 33.0-33.9, adult; I89.0 Lymphedema, not elsewhere classified; R19.7 Diarrhea, unspecified; Z20.822 Contact with and (suspected) exposure to COVID-19
CPT/HCPCS: 36415; 80048; 80202; 81003; 81015; 82947; 85025; 87040; 87070; 87077; 87086; 87088; 87186; 87205; 93306; 96374; 96375; 99284; G0378; J0692; J1650; J3370; J7040; J7050; U0003